=== PATIENT | male | born 1940 | race Caucasian/White ===

== ENCOUNTER 2016-10-18 16:48 | Inpatient (IN) | payer MEDICARE, BC ==
[~2016-10-18 16:48] MED LIST: AMIODARONE 450 MG in DEXTROSE 5% IN WATER 250 ML IV SCH
[2016-10-18] MEDS ORDERED: PROCAINAMIDE 100 MG/ML 10 ML VIAL IV STA (17:01)
[2016-10-18] MEDS ORDERED: AMIODARONE 450 MG in DEXTROSE 5% IN WATER 250 ML IV ONE ×2 (17:01)
[2016-10-18] MEDS: DEXTROSE 5% IN WATER 100 ML with AMIODARONE 150 MG IV ONE ×2 (17:04→17:11)
[2016-10-18] MEDS ORDERED: LORazepam 2 MG/ML SYRINGE IV STA (17:09)
[2016-10-18] MEDS ORDERED: MORPHINE SULFATE 4 MG/ML SYRINGE IVP STA (17:09)
[2016-10-18] MEDS ORDERED: HEPARIN SODIUM,PORCINE 5,000 UNIT/ML 1 ML VIAL IV PRN (17:19)
[2016-10-18] MEDS ORDERED: MORPHINE SULFATE 4 MG/ML SYRINGE IV PRN (17:19)
[2016-10-18] MEDS ORDERED: ASPIRIN 81 MG PO STA (17:19)
[2016-10-18] MEDS ORDERED: HEPARIN SODIUM,PORCINE 5,000 UNIT/ML 1 ML VIAL IV ONE (17:19)
[2016-10-18] MEDS ORDERED: SODIUM CHLORIDE 0.9% 1,000 ML IV STA (17:19)
--- NOTE | 2016-10-18 17:21 | ED ---
General Adult HPI - General Chief complaint: Chest Pain Stated complaint: Chest Pain Time Seen by Provider: 10/18/16 16:50 Source: patient, RN notes reviewed, old records reviewed Mode of arrival: wheelchair Limitations: no limitations - History of Present Illness Initial comments: This is a 76-year-old male the ER for evaluation of chest pain. Patient coming intervention with anterior chest pain lightheadedness dizziness feels the passed out weakness. Strong history of heart disease, NC with stent. Patient' s chest pain started one half hour prior to arrival, patient comes in the ER under his own power. Mild shortness of breath, he did have diaphoresis. No modifying factors for symptoms, symptoms are consistent and worsening - Related Data Home Medications Medication Instructions Recorded Confirmed Furosemide [Lasix] 20 mg PO DAILY 10/18/16 10/18/16 Gabapentin [Neurontin] 300 mg PO TID PRN 10/18/16 10/18/16 Latanoprost [Xalatan 0.005%] 1 drop BOTH EYES HS 10/18/16 10/18/16 Lisinopril [Zestril] 20 mg PO BID 10/18/16 10/18/16 Naproxen [Naprosyn] 375 mg PO BID 10/18/16 10/18/16 Pilocarpine 1% Ophth Soln [Isopto 1 drops RIGHT EYE BID 10/18/16 10/18/16 Carpine 1%] metFORMIN HCL ER [Glucophage Xr] 500 mg PO DAILY 10/18/16 10/18/16 Previous Rx's Medication Instructions Recorded Aspirin EC [Ecotrin Low Dose] 81 mg PO DAILY #100 tablet. 06/24/14 Carvedilol [Coreg] 6.25 mg PO BID #60 tab 06/24/14 Simvastatin [Zocor] 40 mg PO HS tab 06/24/14 Allergies Allergy/AdvReac Type Severity Reaction Status Date / Time atorvastatin calcium AdvReac Unknown Verified 10/18/16 16:54 [From Lipitor] hydrocodone bitartrate AdvReac Unknown Verified 10/18/16 16:54 [From Vicodin] Review of Systems ROS Statement: Those systems with pertinent positive or pertinent negative responses have been documented in the HPI. ROS Other: All systems not noted in ROS Statement are negative. Past Medical History Past Medical History: Coronary Artery Disease (CAD), Diabetes Mellitus, Hyperlipidemia, Hypertension, Myocardial Infarction (NC), Osteoarthritis (OA) Additional Past Medical History / Comment(s): Pt states my "RCA 99% is blocked and my LCA 17% blocked since 1980,a nd been that way ever since", headaches Last Myocardial Infarction Date:: 1980 History of Any Multi-Drug Resistant Organisms: None Reported Past Surgical History: Back Surgery, Hernia Repair Past Anesthesia/Blood Transfusion Reactions: No Reported Reaction Past Psychological History: No Psychological Hx Reported Smoking Status: Former smoker Past Alcohol Use History: None Reported Past Drug Use History: None Reported - Past Family History Father Family Medical History: Unable to Obtain General Exam Limitations: no limitations General appearance: alert, anxious, in distress Head exam: Present: atraumatic, normocephalic, normal inspection Eye exam: Present: normal appearance, PERRL, EOMI. Absent: scleral icterus, conjunctival injection, periorbital swelling ENT exam: Present: normal exam, mucous membranes moist Neck exam: Present: normal inspection. Absent: tenderness, meningismus, lymphadenopathy Respiratory exam: Present: normal lung sounds bilaterally. Absent: respiratory distress, wheezes, rales, rhonchi, stridor Cardiovascular Exam: Present: tachycardia, irregular rhythm, normal heart sounds. Absent: systolic murmur, diastolic murmur, rubs, gallop, clicks GI/Abdominal exam: Present: soft, normal bowel sounds. Absent: distended, tenderness, guarding, rebound, rigid Extremities exam: Present: normal inspection, full ROM, normal capillary refill. Absent: tenderness, pedal edema, joint swelling, calf tenderness Back exam: Present: normal inspection Neurological exam: Present: alert, oriented X3, CN II-XII intact Psychiatric exam: Present: normal affect, normal mood Skin exam: Present: warm, dry, intact, normal color. Absent: rash Course Vital Signs 10/18/16 10/18/16 10/18/16 16:52 16:58 17:03 Temperature 96.7 F L Pulse Rate 208 H 206 H 203 H Pulse Rate [ Mail List Librarian ] Respiratory 26 H 22 24 Rate Blood Pressure 101/69 166/88 165/65 Blood Pressure [Left Arm] O2 Sat by Pulse 97 99 98 Oximetry 10/18/16 10/18/16 10/18/16 17:12 17:16 17:18 Temperature Pulse Rate 190 H Pulse Rate [ 64 64 Mail List Librarian ] Respiratory 24 24 Rate Blood Pressure 86/54 Blood Pressure 126/60 118/69 [Left Arm] O2 Sat by Pulse 100 97 99 Oximetry 10/18/16 10/18/16 10/18/16 17:22 17:28 17:31 Temperature Pulse Rate Pulse Rate [ 62 71 68 Mail List Librarian ] Respiratory 22 22 22 Rate Blood Pressure Blood Pressure 114/65 114/62 111/62 [Left Arm] O2 Sat by Pulse 98 98 98 Oximetry 10/18/16 17:37 Temperature 96.8 F L Pulse Rate 65 Pulse Rate [ Mail List Librarian ] Respiratory 22 Rate Blood Pressure 113/66 Blood Pressure [Left Arm] O2 Sat by Pulse 98 Oximetry - Reevaluation(s) Reevaluation #1: 10/18/16 17:56 Patient is and ventricular tachycardia with a regular rhythm monomorphic, patient cardioverted at 100 J, cardioverted to normal sinus rhythm, EKG positive ST elevated NC, stimulator paged, cardiology evaluating patient returned to our operating room for PCI Medical Decision Making - Medical Decision Making Filiform LVEF for presenting with chest pain and V. tach or arrhythmia, patient was cardioverted from V. tach with positive ST elevated NC, patient admitted to collaborative physician for intervention - Lab Data Result diagrams: 10/18/16 17:22 10/18/16 17:22 - Radiology Data Radiology results: report reviewed (Chest x-ray is negative for acute disease), image reviewed Critical Care Time Critical Care Time: Yes Total Critical Care Time: 31 Disposition Clinical Impression: Chest pain, ST elevation myocardial infarction (STEMI), Ventricular tachycardia Disposition: ADMITTED IP TO THIS HOSP Condition: Critical
[2016-10-18] MEDS ORDERED: HEPARIN SODIUM,PORCINE/D5W PMX 25,000 UNIT in DEXTROSE/WATER 1 500ML.BAG IV SCH (17:30)
[2016-10-18 17:31] LABS: Basophils % (A) 0 %; CH 32.2; CHCM 34.2; Eosinophils # (A) 0.1 k/uL (0-0.7); Eosinophils % (A) 2 %; HCT 43.4 % (39.0-53.0); HDW 2.98; HGB 14.3 gm/dL (13.0-17.5); Luc # (Auto) 0.03; Luc % (Auto) 1; Lymphocytes # (A) 0.9 k/uL (1.0-4.8); Lymphocytes % (A) 21 %; MCH 31.1 pg (25.0-35.0); MCHC 32.9 g/dL (31.0-37.0); MCV 94.7 fL (80.0-100.0); Mean Platelet Volume 8.1; Monocytes # (A) 0.1 k/uL (0-1.0); Monocytes % (A) 3 %; Neutrophils # (A) 3.1 k/uL (1.3-7.7); Neutrophils % (A) 73 %; RBC 4.59 m/uL (4.30-5.90); RDW 15.2 % (11.5-15.5); WBC 4.2 k/uL (3.8-10.6); WBC (Perox) 4.17
[2016-10-18 17:39] LABS: INR 1.1 (<1.2); Partial Thromboplastin Time 24.4 sec (22.0-30.0); Prothrombin Time 10.7 sec (9.0-12.0)
--- NOTE | 2016-10-18 17:46 | XR ---
EXAMINATION TYPE: XR chest 1V portable DATE OF EXAM: 10/18/2016 COMPARISON: 06/20/2014 HISTORY: Chest pain TECHNIQUE: Single frontal view of the chest is obtained. FINDINGS: There is coarsening of interstitial markings. There is no gross heart failure. There are c hest leads. There are no hilar masses. I see no definite pleural effusion. IMPRESSION: Coarse lung markings similar to last exam and probably due to some fibrosis and atelecta sis. No gross heart failure.
[2016-10-18 17:48] LABS: Calcium 8.9 mg/dL (8.4-10.2); Potassium 4.6 mmol/L (3.5-5.1); Total Bilirubin 0.7 mg/dL (0.2-1.3); Total Protein 6.7 g/dL (6.3-8.2)
[2016-10-18] MEDS ORDERED: LIDOCAINE 2% INJ 20 MG/ML (20 ML MDV) ONE (17:50)
[2016-10-18] MEDS ORDERED: SODIUM CHLORIDE 0.9% 1,000 ML IV ONE (18:00)
[2016-10-18] MEDS ORDERED: LIDOCAINE 2% INJ 20 MG/ML SQ ONE (18:00)
--- NOTE | 2016-10-18 18:02 | P.CRDCN ---
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 He claims the pain was 9 on a scale of 1- 10. He was found to be in ventricular tachycardia on arrival. Patient had a cardioversion with conversion to sinus rhythm. Initial EKG showed marked ST depression. Subsequent EKG showed mild elevation in aVR, but mostly some ST depression in anterolateral leads. It may be primary ventricular tachycardia associated with some ischemic changes. However new myocardial infarction cannot be completely excluded. Patient is advised to have a cardiac catheterization for definitive diagnosis and further intervention as needed. Patient has history of previous ischemic cardiomyopathy. Patient may need AICD implantation. The time of my examination patient is completely free of pain. Review of Systems Not obtained Past Medical History Past Medical History: Coronary Artery Disease (CAD), Diabetes Mellitus, Hyperlipidemia, Hypertension, Myocardial Infarction (LA), Osteoarthritis (OA) Additional Past Medical History / Comment(s): Pt states my "RCA 99% is blocked and my LCA 17% blocked since 1980,a nd been that way ever since", headaches Last Myocardial Infarction Date:: 1980 History of Any Multi-Drug Resistant Organisms: None Reported Past Surgical History: Back Surgery, Hernia Repair Past Anesthesia/Blood Transfusion Reactions: No Reported Reaction Past Psychological History: No Psychological Hx Reported Smoking Status: Former smoker Past Alcohol Use History: None Reported Past Drug Use History: None Reported - Past Family History Father Family Medical History: Unable to Obtain Medications and Allergies Home Medications Medication Instructions Recorded Confirmed Type Furosemide [Lasix] 20 mg PO DAILY 10/18/16 10/18/16 History Gabapentin [Neurontin] 300 mg PO TID PRN 10/18/16 10/18/16 History Latanoprost [Xalatan 0.005%] 1 drop BOTH EYES HS 10/18/16 10/18/16 History Lisinopril [Zestril] 20 mg PO BID 10/18/16 10/18/16 History Naproxen [Naprosyn] 375 mg PO BID 10/18/16 10/18/16 History Pilocarpine 1% Ophth Soln [Isopto 1 drops RIGHT EYE BID 10/18/16 10/18/16 History Carpine 1%] metFORMIN HCL ER [Glucophage Xr] 500 mg PO DAILY 10/18/16 10/18/16 History Allergies Allergy/AdvReac Type Severity Reaction Status Date / Time atorvastatin calcium AdvReac Unknown Verified 10/18/16 16:54 [From Lipitor] hydrocodone bitartrate AdvReac Unknown Verified 10/18/16 16:54 [From Vicodin] Physical Exam Vitals: Vital Signs Temp Pulse Pulse Resp BP BP Pulse Ox 10/18/16 17:37 96.8 F L 65 22 113/66 98 10/18/16 17:31 68 22 111/62 98 10/18/16 17:28 71 22 114/62 98 10/18/16 17:22 62 22 114/65 98 10/18/16 17:18 64 24 118/69 99 10/18/16 17:16 64 24 126/60 97 10/18/16 17:12 190 H 86/54 100 10/18/16 17:03 203 H 24 165/65 98 10/18/16 16:58 206 H 22 166/88 99 10/18/16 16:52 96.7 F L 208 H 26 H 101/69 97 Intake and Output 10/18/16 10/18/16 10/18/16 06:59 14:59 22:59 Other: Weight 108.862 kg Patient Weight 10/19/16 06:59 Weight 108.862 kg GENERAL EXAM: Patient is alert and oriented and doesn't appear to be in any acute distress HEENT: Normocephalic. Normal reaction of pupils, equal size, normal range of extraocular motion. No erythema or exudates in the throat. NECK: No masses, no nuchal rigidity. CHEST: No chest wall deformity. LUNGS: Equal air entry with no crackles or wheeze. HEART: S1 and S2 normal with no audible mumurs or gallops. Regular rhythm, femorals equal on both sides.. ABDOMEN: Soft. SKIN: No rashes CENTRAL NERVOUS SYSTEM: No focal deficits. EXTREMITIES: No cyanosis, clubbing or edema. Results 10/18/16 17:22 10/18/16 17:22 Cardiac Enzymes 10/18/16 Range/Units 17:22 AST 50 (17-59) U/L Coagulation 10/18/16 Range/Units 17:22 PT 10.7 (9.0-12.0) sec APTT 24.4 (22.0-30.0) sec CBC 10/18/16 Range/Units 17:22 WBC 4.2 (3.8-10.6) k/uL RBC 4.59 (4.30-5.90) m/uL Hgb 14.3 (13.0-17.5) gm/dL Hct 43.4 (39.0-53.0) % Plt Count 161 (150-450) k/uL Comprehensive Metabolic Panel 10/18/16 Range/Units 17:22 Sodium 142 (137-145) mmol/L Potassium 4.6 (3.5-5.1) mmol/L Chloride 110 H (98-107) mmol/L Carbon Dioxide 20 L (22-30) mmol/L BUN 28 H (9-20) mg/dL Creatinine 1.80 H (0.66-1.25) mg/dL Glucose 158 H (74-99) mg/dL Calcium 8.9 (8.4-10.2) mg/dL AST 50 (17-59) U/L ALT 52 (21-72) U/L Alkaline Phosphatase 93 (38-126) U/L Total Protein 6.7 (6.3-8.2) g/dL Albumin 3.6 (3.5-5.0) g/dL Current Medications Generic Name Dose Route Start Last Admin Trade Name Freq PRN Reason Stop Dose Admin Aspirin 325 mg 10/19/16 09:00 Aspirin PO DAILY [facility] Heparin Sodium (Porcine) 0 unit 10/18/16 17:19 Heparin IV Q6HR PRN Low PTT Protocol Amiodarone HCl 450 mg/ 259 mls @ 34.53 mls/hr 10/18/16 17:01 10/18/16 17:33 Dextrose/Water IV 10/19/16 00:31 1 mg/min .Q7H31M ONE 34.53 mls/hr Protocol Administration 1 MG/MIN Heparin Sodium/Dextrose 25,000 500 mls @ 20.03 mls/hr 10/18/16 17:30 unit/ IV Solution IV .Q24H ANGELIQUE Protocol 9.2 UNITS/KG/HR Sodium Chloride 1,000 mls @ 100 mls/hr 10/18/16 17:19 Saline 0.9% IV 08/12/17 03:18 .Q10H STA Morphine Sulfate 4 mg 10/18/16 17:19 Morphine Sulfate (Inj) IV Q5M PRN Chest Pain Nitroglycerin 0.4 mg 10/18/16 17:19 Nitrostat SUBLINGUAL Q5M PRN Chest Pain Intake and Output 10/18/16 10/18/16 10/18/16 06:59 14:59 22:59 Other: Weight 108.862 kg Patient Weight 10/19/16 06:59 Weight 108.862 kg 10/18/16 17:22 10/18/16 17:22 EKG Interpretations (text) Sinus rhythm with evidence of old inferior wall LA. Diffuse ST-T abnormalities. Initial EKG showed ventricular tachycardia Assessment and Plan (1) Old inferior wall myocardial infarction Status: Acute (2) Ventricular tachycardia Status: Acute (3) Acute coronary syndrome Status: Acute (4) Diabetes mellitus Status: Acute (5) Chronic renal failure Status: Acute Plan: We will proceed with cardiac catheterization, which is being performed by Dr. NANCY Zuñiga. Meanwhile we'll continue the amiodarone, beta blockers and antiplatelet agents along with heparin. Prognosis is guarded
[2016-10-18] MEDS ORDERED: IOHEXOL 350 MG/ML 125ML BOTTLE INJ ONE (18:17)
[2016-10-18 18:19] LABS: Creatine Kinase MB 7.2 ng/mL (0.0-2.4); Troponin I 0.14 ng/mL (0.000-0.034)
[2016-10-18] MEDS ORDERED: RX INFO: IV CONTRAST WAS GIVEN 1 EACH MISC MISCELLANE PRN (18:22)
[2016-10-18 18:45] LABS: Magnesium 2.2 mg/dL (1.6-2.3)
[2016-10-18] MEDS: SODIUM CHLORIDE 0.9% 1,000 ML IV SCH (22:00)
[2016-10-19 00:23] LABS: Troponin I 24.9 ng/mL (0.000-0.034)
[2016-10-19] MEDS: LISINOPRIL 5 MG TAB PO SCH ×3 (00:35→21:28)
[2016-10-19] MEDS: MAGNESIUM SULFATE-D5W PMX 1 GM in DEXTROSE/WATER 1 100ML.BAG IVPB SCH ×2 (01:25→02:49)
[2016-10-19] MEDS: AMIODARONE 450 MG in DEXTROSE 5% IN WATER 250 ML IV SCH ×4 (01:58→21:23)
[2016-10-19 05:17] LABS: Basophils % (A) 1 %; CH 31.9; CHCM 33.4; Eosinophils # (A) 0.2 k/uL (0-0.7); Eosinophils % (A) 3 %; HCT 40.9 % (39.0-53.0); HDW 2.96; HGB 13.1 gm/dL (13.0-17.5); Luc # (Auto) 0.13; Luc % (Auto) 2; Lymphocytes # (A) 1.1 k/uL (1.0-4.8); Lymphocytes % (A) 17 %; MCH 30.8 pg (25.0-35.0); MCHC 32.1 g/dL (31.0-37.0); Mean Platelet Volume 8.7; Monocytes # (A) 0.4 k/uL (0-1.0); Monocytes % (A) 7 %; Neutrophils # (A) 4.5 k/uL (1.3-7.7); Neutrophils % (A) 71 %; RBC 4.26 m/uL (4.30-5.90); RDW 15.4 % (11.5-15.5); WBC 6.3 k/uL (3.8-10.6)
[2016-10-19 05:34] LABS: Calcium 8.5 mg/dL (8.4-10.2); Potassium 3.9 mmol/L (3.5-5.1)
[2016-10-19 05:52] LABS: Troponin I 26.9 ng/mL (0.000-0.034)
[2016-10-19] MEDS ORDERED: Potassium Replacement Protocol 1 EACH MISC MISCELLANE PRN (06:47)
[2016-10-19] MEDS: CARVEDILOL 6.25 MG TAB PO SCH ×2 (08:14→18:17)
[2016-10-19] MEDS: POTASSIUM CHLORIDE 10 MEQ, LIDOCAINE 2% INJ 10 MG in SODIUM CHLORIDE 0.9% 100 ML IV SCH ×2 (08:14→12:43)
[2016-10-19] MEDS: ASPIRIN 325 MG TAB PO SCH (08:14)
[2016-10-19 08:20] LABS: Glucose,Whole Blood 121 mg/dL (75-99)
[2016-10-19] MEDS ORDERED: ATORVASTATIN 40 MG TAB PO SCH (09:00)
[2016-10-19] MEDS: GABAPENTIN 300 MG CAP PO PRN ×2 (11:31→18:50)
[2016-10-19] MEDS: PILOCARPINE 1% OPHTH DROPS 15 ML BTL RIGHT EYE SCH ×2 (11:31→21:29)
[2016-10-19 12:42] LABS: Glucose,Whole Blood 131 mg/dL (75-99)
[2016-10-19] MEDS: INSULIN LISPRO (humaLOG) 300 UNIT/3 ML VIAL SQ SCH ×3 (12:44→21:28)
[2016-10-19 13:34] LABS: Hemoglobin A1C 6.1 % (4.2-6.1)
--- NOTE | 2016-10-19 16:54 | HP ---
DATE OF ADMISSION: 10/18/2016 CHIEF COMPLAINT: Chest pain. HISTORY OF PRESENT ILLNESS: This is a 76-year-old gentleman who presents to the emergency room from home. The patient was out doing some garage sales, etc. The patient looked up, felt dizzy then he felt extremely dizzy, diaphoretic, passed out briefly. The patient's said she took him home, it was pouring rain. The patient was looking up to see how the weather was going to be. As he got him he took some medication and went to sleep, however, the patient's noticed that he kept on complaining of chest pain. In view of that she brought him to the emergency room. The patient seen in the ER, noted to be in sustained ventricular tachycardia, rate of about 200. He was cardioverted. The patient subsequently showed EKG changes of ischemia. In view of this the patient was taken into the cardiac laboratory administrative director. The cardiac cath done revealed totally occluded RCA which is previous finding. He was noted to have some mild to moderate other plaques and did not have any acute occlusion. The patient has had a previous RCA occlusion with mildly hypokinetic segment there. It is felt that this segment was the source of origin of ventricular tachycardia and I suspect that the patient's rapid heart rate with mild hypertension was the cause of the chest discomfort and ischemic changes on EKG. The patient otherwise feels better since the cardioversion. Denies any chest pain or shortness of breath. PAST MEDICAL HISTORY: Significant for hypertension, coronary artery disease with previous RCA disease as noted. History of COPD, carcinoma of the prostate , diabetes mellitus, chronic kidney disease stage 3 and chronic neck and shoulder pain. The patient's surgical history is significant for lumbar surgery twice, TURP and bilateral inguinal herniorrhaphy. FAMILY MEDICAL HISTORY: Father , unknown cause. Mother of unknown cause. The patient had a stepbrother and stepsister unknown to him. The patient has had two daughters, 52 and 49 and a son 46, all in adequate health. SOCIAL HISTORY: Patient , lives with spouse. Is fairly active. CONSUMPTION HISTORY: Ex-smoker two packs per day for 20 years. Alcohol none. REVIEW OF SYSTEMS: NEURO: Denies any headaches. Present symptoms of dizziness. No double vision , blurred vision. No symptoms of seizure. Did have brief syncope. PSYCH: Some apprehension. CARDIAC: Chest pain resolved. Palpitations resolved. RESPIRATORY: Mild chronic cough. Mild dyspnea on exertion. Stable. GI: No nausea, vomiting, abdominal pain or diarrhea. : No symptoms of dysuria or hematuria. Does have some frequency. EXTREMITIES: No pain, edema. MUSCULOSKELETAL: Chronic neck pain. CONSTITUTIONAL: No fever or chills. HEMATOLOGIC: No anemia or bleeding disorder. ENDOCRINE: History of diabetes mellitus. SKIN: No rashes. ENT: Decreased hearing, has adequate vision. PHYSICAL EXAMINATION: Pleasant 76-year-old gentleman, at present stabilized post cardioversion. VITAL SIGNS: As mentioned above, patient at the time of ER evaluation had temperature of 96.7, pulse 208, respirations 26, blood pressure 101/69. Pulse ox of 97%. Subsequently, patient's blood pressure went up to 166/88 and then dropped down to 86/54. Post cardioversion pulse rate 64 and blood pressure 118/ 69. Pulse ox 99% on 2 liters. HEENT: Normocephalic. Pupils are reactive. Oral cavity dry. NECK: No JVD. LUNGS: Clear to auscultation with mild generalized decreased airflow. CARDIAC: Distant heart sounds, S1/S2 with no gallops. Systolic murmur 2/6 left sternal border. ABDOMEN: Soft. Bowel sounds present. EXTREMITIES: Reveal no edema, good pulses both upper and lower extremities. NEUROLOGIC: Awake, alert, oriented. Well coordinated movements. LABORATORY ASSESSMENT: EKG which shows ventricular tachycardia. Chest x-ray revealed coarse lung markings suggestive of some fibrosis, atelectasis with no gross heart failure. BUN and creatinine are normal. CBC is normal. PT and PTT is normal. Electrolytes - sodium 142, potassium 4.6, chloride 110, CO2 content 20, BUN 28, creatinine 1.8. Glucose 158. CPK 93, troponin 0.140. ASSESSMENT: 1. Sustained ventricular tachycardia. 2. Known coronary artery disease. 3. NonST elevated myocardial infarction. 4. Chronic kidney disease stage 3. 5. Diabetes mellitus. 6. Obesity. 7. Chronic obstructive pulmonary disease. 8. History of carcinoma of the prostate. PLAN: Continue present medical regimen. Patient's condition discussed with the patient. The patient did undergo cardiac catheterization. I did get a call from Dr. Alison Zuñiga. The patient's findings are suggestive of no acute occlusion, suggest chronic coronary artery disease and sustained ventricular tachycardia. Plan at present is to continue the patient on medical therapy. After further evaluation, consider for possible EP studies or defibrillator placement. Patient's condition discussed with the and reassured. LIAMD
[2016-10-19 17:28] LABS: Glucose,Whole Blood 106 mg/dL (75-99)
--- NOTE | 2016-10-19 17:33 | ECHOF ---
Referral Reason:Isch CM with VT and NSTEMI MEASUREMENTS -------- HEIGHT: 157.5 cm WEIGHT: 108.9 kg BP: 161/78 RVIDd: 3.4 cm (< 3.3) IVSd: 1.1 cm (0.6 - 1.1) LVIDd: 5.8 cm (3.9 - 5.3) LVPWd: 1.6 cm (0.6 - 1.1) IVSs: 1.2 cm LVIDs: 4.9 cm LVPWs: 1.7 cm LA Diam: 4.1 cm (2.7 - 3.8) LAESV Index (A-L): 26.75 ml/m Ao Diam: 3.4 cm (2.0 - 3.7) AV Cusp: 1.5 cm (1.5 - 2.6) LA Diam: 4.4 cm (2.7 - 3.8) MV EXCURSION: 16.226 mm (> 18.000) MV EF SLOPE: 37 mm/s (70 - 150) EPSS: 1.3 cm MV E Dread: 0.80 m/s MV DecT: 203 ms MV A Dread: 0.76 m/s MV E/A Ratio: 1.06 RAP: 5.00 mmHg RVSP: 15.73 mmHg FINDINGS -------- Undetermined rhythm. This was a technically adequate study. Left ventricular wall thickness is normal. Overall left ventricular systolic function is severely impaired with, an EF between 20 - 25 %. The right ventricle is normal in size. The left atrium is mildly dilated. The right atrial size is normal. The aortic valve is trileaflet, and appears structurally normal. No aortic stenosis or regurgitation. Mild mitral regurgitation is present. Mild tricuspid regurgitation present. There is no evidence of pulmonary hypertension. The right ventricular systolic pressure, as measured by Doppler, is 15.73mmHg. There is no pulmonic regurgitation present. The aortic root size is normal. There is no pericardial effusion. CONCLUSIONS -------- 1. Left ventricular wall thickness is normal. 2. There is no pericardial effusion. 3. Overall left ventricular systolic function is severely impaired with, an EF between 20 - 25 %. 4. The left atrium is mildly dilated. 5. Mild mitral regurgitation is present. 6. Mild tricuspid regurgitation present. 7. There is no evidence of pulmonary hypertension. 8. The right ventricular systolic pressure, as measured by Doppler, is 15.73mmHg. 9. There is no pulmonic regurgitation present. 10. The aortic root size is normal. SNACK STEWARD: Stella Parish RDCS
[2016-10-19] MEDS: HEPARIN SODIUM,PORCINE 5,000 UNIT/ML 1 ML VIAL SQ SCH (18:17)
[2016-10-19] MEDS: SODIUM CHLORIDE 0.9% 1,000 ML IV SCH (19:04)
--- NOTE | 2016-10-19 20:13 | CC ---
DATE OF SERVICE: 10/18/2016 PROCEDURE: Left heart catheterization, coronary angiography. PERFORMED BY: Dr. Alison Zuñiga. CLINICAL INFORMATION: Mr. Ben Vega is a 76 year old gentleman with a known diagnosis of ischemic cardiomyopathy with an ejection fraction of 40%, known RCA occlusion with noncritical left system disease based on cardiac catheterization from 1988. I follow him in the office on a regular basis. He presented to the hospital with chest pain, was found to be sustained ventricular tachycardia. He received Amiodarone without improvement and then had a 100 joules shock with which he converted to sinus rhythm and his chest pain then got better. He had ST segment depression more than ST segment elevation suggestive of some global ischemia after the shock and then brought to the cardiac catheterization lab. He was seen and evaluated by Dr. Chavez and myself. He was advised coronary angiography. PROCEDURE NOTE: Under local anesthesia and strict aseptic precautions, a 6 Luxembourgish introducer was placed in the right femoral artery. Using standard Connor catheters I performed coronary angiography. Using the same right Judkinss catheter, I checked LV pressures but did not perform LV gram. The patient has Type 2 diabetes and mild chronic CKD. The sheath was then sutured and the patient was sent to the ICU with the intent that the sheath will be pulled in the next half hour to 45 minutes. CARDIAC CATHETERIZATION FINDINGS: The left ventricle end diastolic pressure was 23 mmHg and there was no gradient across the aortic valve. CORONARY ANGIOGRAPHY FINDINGS: Right coronary artery: This vessel is totally occluded and seen as a stump without any antegrade flow. Left main coronary artery: This is a short, patent, vessel has some diffuse disease but no more than 20% stenosis and bifurcates into LAD and circumflex. The left main itself does not have any significant lesion. Left anterior descending coronary artery: This vessel has diffuse disease in the mid. In the mid portion, there is about 50% narrowing and it gives off two diagonal branches, one of which is diffusely diseased. There is a good sized septal branch and then the caliber of the LAD improves. It runs all the way to the apex supplying a sizable amount of myocardium. The first diagonal branch has diffuse. The second diagonal branch has minor irregularities. Mid LAD has 50% lesion and septal branch is free of significant disease. Left posterior circumflex coronary artery: Technically a non-dominant vessel that gives off a large obtuse marginal that runs distally. It has minor diffuse irregularities. No significant disease. Mid circumflex as a 40% lesion and then it gives off a groove branch that also has diffuse non-critical disease. Circumflex therefore, has about a 40% mid lesion, diffuse irregularities but no critical lesion is noted. COLLATERAL CIRCULATION: There is a rich network of collaterals coming from the left system opacifying the distal branches of the RCA. Collaterals come from both the LAD and the circumflex. LEFT VENTRICULOGRAM: This was not performed. 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 He has elevated filling pressures, moderate non-critical disease in the left system. Rich collaterals are being provided from the left system to the RCA. This is the distal opacification of the branches. RECOMMENDATIONS: I am recommending aggressive medical therapy and ICD. The patient will be on intravenous amiodarone for the next 24 hours. Magnesium level will be checked. He will also be on IV heparin for 24 hours. Echocardiogram will be performed tomorrow. The patient will probably require an ICD. The findings were discussed with the patient and her family and also with Dr. Masoud Omalley. The patient received moderate conscious sedation for a total duration of 30 minutes. His oxygenation was watched closely. ELSIE
--- NOTE | 2016-10-19 20:15 | P.PN ---
Subjective This is a 76-year-old gentleman with history of ischemic heart disease presented to the hospital with chest pain and was found to be in ventricular tachycardia on arrival. Patient had a cardioversion with conversion to sinus rhythm. Initial EKG showed marked ST depression. Subsequent EKG showed mild elevation in aVR, but mostly some ST depression in anterolateral leads. Patient is advised to have a cardiac catheterization. It showed mild to moderate CAD. He has primary VT. He is going to have an ICD. Objective - Vital Signs Vital signs: Vital Signs Temp 98.6 F 10/19/16 16:00 Pulse 65 10/19/16 19:24 Resp 16 10/19/16 19:24 BP 137/64 10/19/16 19:24 Pulse Ox 96 10/19/16 19:24 Intake & Output 10/19/16 10/19/16 10/20/16 06:59 18:59 06:59 Intake Total 1169.3 1712.366 Output Total 760 1675 Balance 409.3 37.366 Weight 112.7 kg Intake: IV 1169.3 931.3 0.9 Normal Saline 33 3 Pressure Bag Amiodarone 450 mg In 366.3 33.3 Dextrose 5% in Water 250 ml @ 1 MG/MIN 34.53 mls/ hr IV .Q7H31M ANG[facility] Rx#: [id number] Heparin Sodium,Porcine/ 220 20 D5w Pmx 25,000 unit In Dextrose/Water 1 500ml. bag @ 9.2 UNITS/KG/HR 20. 03 mls/hr IV .Q24H ANG[facility]QUE Rx #:[id number] Sodium Chloride 0.9% 1, 550 875 000 ml @ 75 mls/hr IV . [id number] ANG[facility]QUE Rx#:[id number] Intake, IV Titration 191.066 Amount Amiodarone 450 mg In 191.066 Dextrose 5% in Water 250 ml @ 1 MG/MIN 34.53 mls/ hr IV .Q7H31M ANGELIQUE Rx#: [id number] Oral 590 Output: Urine 760 1675 Other: Voiding Method Urinal Urinal # Bowel Movements 0 0 ABP, PAP, CO, CI - Last Documented Arterial Blood Pressure 140/67 - Constitutional General appearance: Present: no acute distress - Respiratory Respiratory: bilateral: CTA - Cardiovascular Rhythm: regular Heart sounds: normal: S1, S2 - Labs CBC & Chem 7: 10/19/16 04:48 10/19/16 04:48 Labs: Abnormal Lab Results - Last 24 Hours (Table) 10/18/16 10/18/16 10/19/16 Range/Units 23:31 23:31 04:48 RBC (4.30-5.90) m/uL Plt Count (150-450) k/uL APTT 38.8 H (22.0-30.0) sec Chloride (98-107) mmol/L BUN (9-20) mg/dL Creatinine (0.66-1.25) mg/dL Glucose (74-99) mg/dL POC Glucose (mg/dL) (75-99) mg/dL Magnesium (1.6-2.3) mg/dL Total Creatine Kinase 633 H 643 H (55-170) U/L CK-MB (CK-2) 149.0 H* 168.0 H* (0.0-2.4) ng/mL Troponin I 24.900 H* 26.900 H* (0.000-0.034) ng/mL Triglycerides (<150) mg/dL HDL Cholesterol (40-60) mg/dL 10/19/16 10/19/16 10/19/16 Range/Units 04:48 04:48 04:48 RBC 4.26 L (4.30-5.90) m/uL Plt Count 132 L (150-450) k/uL APTT 40.1 H (22.0-30.0) sec Chloride 108 H (98-107) mmol/L BUN 23 H (9-20) mg/dL Creatinine 1.66 H (0.66-1.25) mg/dL Glucose 133 H (74-99) mg/dL POC Glucose (mg/dL) (75-99) mg/dL Magnesium (1.6-2.3) mg/dL Total Creatine Kinase (55-170) U/L CK-MB (CK-2) (0.0-2.4) ng/mL Troponin I (0.000-0.034) ng/mL Triglycerides 176 H (<150) mg/dL HDL Cholesterol 27 L (40-60) mg/dL 10/19/16 10/19/16 10/19/16 Range/Units 04:48 08:18 12:41 RBC (4.30-5.90) m/uL Plt Count (150-450) k/uL APTT (22.0-30.0) sec Chloride (98-107) mmol/L BUN (9-20) mg/dL Creatinine (0.66-1.25) mg/dL Glucose (74-99) mg/dL POC Glucose (mg/dL) 121 H 131 H (75-99) mg/dL Magnesium 2.6 H (1.6-2.3) mg/dL Total Creatine Kinase (55-170) U/L CK-MB (CK-2) (0.0-2.4) ng/mL Troponin I (0.000-0.034) ng/mL Triglycerides (<150) mg/dL HDL Cholesterol (40-60) mg/dL 10/19/16 Range/Units 17:27 RBC (4.30-5.90) m/uL Plt Count (150-450) k/uL APTT (22.0-30.0) sec Chloride (98-107) mmol/L BUN (9-20) mg/dL Creatinine (0.66-1.25) mg/dL Glucose (74-99) mg/dL POC Glucose (mg/dL) 106 H (75-99) mg/dL Magnesium (1.6-2.3) mg/dL Total Creatine Kinase (55-170) U/L CK-MB (CK-2) (0.0-2.4) ng/mL Troponin I (0.000-0.034) ng/mL Triglycerides (<150) mg/dL HDL Cholesterol (40-60) mg/dL Assessment and Plan Plan: This is a 76 year old male with primary VT. He is going to have ICD. Will continue the Amiodarone and Coreg.
[2016-10-19] MEDS ORDERED: DORZOLAMIDE-TIMOLOL 2-0.5% DROPS 10 ML BTL RIGHT EYE SCH (21:00)
[2016-10-19 21:15] LABS: Glucose,Whole Blood 107 mg/dL (75-99)
[2016-10-19] MEDS: AMIODARONE 200 MG TAB PO SCH (21:28)
[2016-10-19] MEDS: LATANOPROST 0.005% OPHTH DROPS 2.5 ML BTL BOTH EYES SCH (21:29)
[2016-10-19] MEDS: DORZOLAMIDE HCL 2% DROPS 10 ML BTL RIGHT EYE SCH (22:13)
[2016-10-20] MEDS: HEPARIN SODIUM,PORCINE 5,000 UNIT/ML 1 ML VIAL SQ SCH ×2 (01:23→09:03)
[2016-10-20] MEDS: GABAPENTIN 300 MG CAP PO PRN ×3 (01:58→20:44)
[2016-10-20 05:56] LABS: Glucose,Whole Blood 131 mg/dL (75-99)
[2016-10-20 06:10] LABS: Mean Platelet Volume 8.1
[2016-10-20] MEDS: INSULIN LISPRO (humaLOG) 300 UNIT/3 ML VIAL SQ SCH ×4 (06:23→22:33)
[2016-10-20] MEDS: CARVEDILOL 6.25 MG TAB PO SCH ×2 (06:29→17:25)
[2016-10-20] MEDS: PILOCARPINE 1% OPHTH DROPS 15 ML BTL RIGHT EYE SCH ×2 (09:04→20:44)
[2016-10-20] MEDS: LISINOPRIL 5 MG TAB PO SCH ×2 (09:04→20:44)
[2016-10-20] MEDS: ASPIRIN 325 MG TAB PO SCH (09:04)
[2016-10-20] MEDS: AMIODARONE 200 MG TAB PO SCH ×2 (09:04→20:43)
--- NOTE | 2016-10-20 09:30 | P.PN ---
Subjective Principal diagnosis: Sustained ventricular tachycardia/acute coronary event This is a pleasant 76-year-old gentleman who sees Dr. NANCY Zuñiga as an outpatient with a known history of CAD, diabetes, hypertension, dyslipidemia who presented to the hospital with weakness, sweating, and chest discomfort as well. In the emergency room the patient was found to be in sustained ventricular tachycardia and then converted to normal sinus mechanism. The EKG after conversion showed ST changes concerning for ischemia and in view of that the patient underwent an emergent heart catheterization which showed intermediate to severe CAD involving the left main and LAD. It was felt that his sustained ventricular tachycardia is likely primary. The echocardiogram showed severe cardiomyopathy with an ejection fraction around 25-30%. The cardiac enzymes were checked and came in to be severe and tabnormal hat is likely related to acute coronary event. The plan is to proceed with AICD tomorrow morning. Objective - Vital Signs Vital signs: Vital Signs Temp 97.4 F L 10/20/16 04:00 Pulse 72 10/20/16 04:00 Resp 16 10/20/16 04:00 BP 163/80 10/20/16 04:00 Pulse Ox 97 10/20/16 04:00 Intake & Output 10/19/16 10/20/16 10/20/16 18:59 06:59 18:59 Intake Total 1712.366 360 Output Total 1675 300 Balance 37.366 -300 360 Weight 107.3 kg Intake: IV 931.3 0.9 Normal Saline 3 Pressure Bag Amiodarone 450 mg In 33.3 Dextrose 5% in Water 250 ml @ 1 MG/MIN 34.53 mls/ hr IV .Q7H31M [facility] Rx#: [id number] Heparin Sodium,Porcine/ 20 D5w Pmx 25,000 unit In Dextrose/Water 1 500ml. bag @ 9.2 UNITS/KG/HR 20. 03 mls/hr IV .Q24H [facility] Rx #:[id number] Sodium Chloride 0.9% 1, 875 000 ml @ 75 mls/hr IV . [id number] ANG[facility]QUE Rx#:[id number] Intake, IV Titration 191.066 Amount Amiodarone 450 mg In 191.066 Dextrose 5% in Water 250 ml @ 1 MG/MIN 34.53 mls/ hr IV .Q7H31M ANGELIQUE Rx#: [id number] Oral 590 360 Output: Urine 1675 300 Other: Voiding Method Urinal Urinal # Voids 1 # Bowel Movements 0 ABP, PAP, CO, CI - Last Documented Arterial Blood Pressure 140/67 - Constitutional General appearance: Present: no acute distress - Respiratory Respiratory: bilateral: CTA - Cardiovascular Rhythm: regular Heart sounds: normal: S1, S2 - Labs CBC & Chem 7: 10/20/16 05:44 10/19/16 04:48 Labs: Abnormal Lab Results - Last 24 Hours (Table) 10/19/16 10/19/16 10/19/16 Range/Units 12:41 17:27 21:13 Plt Count (150-450) k/uL POC Glucose (mg/dL) 131 H 106 H 107 H (75-99) mg/dL 10/20/16 10/20/16 Range/Units 05:44 05:55 Plt Count 144 L (150-450) k/uL POC Glucose (mg/dL) 131 H (75-99) mg/dL Assessment and Plan Plan: I am going to continue the current medical treatment which include beta mandie , statin, and amiodarone. In view of the severe lead abnormal cardiac enzymes I am going to restart the patient back on heparin IV for additional 24 hours. And in view of the severe cardiomyopathy by echocardiogram I will start the patient on Aldactone at 25 mg by mouth daily. The patient is going to have an AICD tomorrow morning.
[2016-10-20] MEDS ORDERED: HEPARIN SODIUM,PORCINE 5,000 UNIT/ML 1 ML VIAL IV PRN (09:40)
[2016-10-20] MEDS: DORZOLAMIDE HCL 2% DROPS 10 ML BTL RIGHT EYE SCH ×2 (11:25→20:43)
[2016-10-20] MEDS: HEPARIN SODIUM,PORCINE/D5W PMX 25,000 UNIT in DEXTROSE/WATER 1 500ML.BAG IV SCH (11:38)
[2016-10-20 11:57] LABS: Glucose,Whole Blood 97 mg/dL (75-99)
--- NOTE | 2016-10-20 13:59 | P.PN ---
Subjective Principal diagnosis: Sustained ventricular tachycardia History present illness: This 76-year-old gentleman was admitted to the hospital after sudden episode of dizziness, and they're very brief transient syncopal episode. He also had some associated chest discomfort. Previous history of coronary artery disease. Due to above symptoms patient presents to the emergency room and is noted to be in sustained ventricular tachycardia with a systolic blood pressure subsequently down to 84. His blood pressure was normal at the time of presentation. Patient was cardioverted. EKG subsequently did show some ST elevations. Patient's taken into the cardiac geotechnical laboratory technician where he was noted to have a totally occluded right coronary artery which is chronic. Is noted to have some mild to moderate disease in the other arteries. The power tong operator did not feel that the patient had an acute VA. He is planned for an AICD. His echocardiogram has shown decline in his left ventricle infarction to 25%. He is to be 40%. The patient today feels well with no symptoms. Dr. Larios the power tong operator today saw the films and feels that he may have a significant occlusion in his LAD and will need further evaluation. We will await their decision. Patient however is comfortable today. REVIEW OF SYSTEMS: Neuro: History of chronic headaches, denies dizziness Psych: Denies anxiety depression feels oriented. Cardiac: Denies chest pain and angina palpitations. Respiratory: Denies shortness of breath cough. GI: Denies nausea vomiting or abdominal pain. No diarrhea or constipation, no bowel movement yet. : Denies dysuria hematuria. Extremities: Denies pain. No edema. Skin: Intact. Constitutional: No fever, chills. Objective - Vital Signs Vital signs: Vital Signs Temp 97.5 F L 10/20/16 08:00 Pulse 60 10/20/16 08:00 Resp 16 10/20/16 12:00 BP 139/67 10/20/16 08:00 Pulse Ox 98 10/20/16 08:00 Intake & Output 10/19/16 10/20/16 10/20/16 18:59 06:59 18:59 Intake Total 1712.366 600 Output Total 1675 300 Balance 37.366 -300 600 Weight 107.3 kg Intake: IV 931.3 0.9 Normal Saline 3 Pressure Bag Amiodarone 450 mg In 33.3 Dextrose 5% in Water 250 ml @ 1 MG/MIN 34.53 mls/ hr IV .Q7H31M [facility] Rx#: [id number] Heparin Sodium,Porcine/ 20 D5w Pmx 25,000 unit In Dextrose/Water 1 500ml. bag @ 9.2 UNITS/KG/HR 20. 03 mls/hr IV .Q24H [facility] Rx #:[id number] Sodium Chloride 0.9% 1, 875 000 ml @ 75 mls/hr IV . [id number] [facility]QUE Rx#:[id number] Intake, IV Titration 191.066 Amount Amiodarone 450 mg In 191.066 Dextrose 5% in Water 250 ml @ 1 MG/MIN 34.53 mls/ hr IV .Q7H31M ANGELIQUE Rx#: [id number] Oral 590 600 Output: Urine 1675 300 Other: Voiding Method Urinal Urinal # Voids 1 # Bowel Movements 0 ABP, PAP, CO, CI - Last Documented Arterial Blood Pressure 140/67 PHYSICAL EXAMINATION: Cooperative, at present in no acute distress. HEENT: Neck decreased range of motion difficult to assess for JVD Chest: Clear to auscultation percussion. Cardiac: Normal S1-S2 no gallops systolic murmur left sternal border. Abdomen: Soft bowel sounds present. Extremities: No edema no tenderness Neurologically: Awake, alert, oriented with well-coordinated movements. - Labs CBC & Chem 7: 10/20/16 05:44 10/19/16 04:48 Labs: Abnormal Lab Results - Last 24 Hours (Table) 10/19/16 10/19/16 10/20/16 Range/Units 17:27 21:13 05:44 Plt Count 144 L (150-450) k/uL POC Glucose (mg/dL) 106 H 107 H (75-99) mg/dL 10/20/16 Range/Units 05:55 Plt Count (150-450) k/uL POC Glucose (mg/dL) 131 H (75-99) mg/dL Assessment and Plan Plan: ASSESSMENT: 1. Sustained ventricular tachycardia. 2. Syncope. 3. Oriented disease. 4. Chronic kidney disease stage III. 5. Diabetes mellitus with narcotic medication. 6. Obesity. 7. COPD. 8. Chronic neck pain. 9. Ischemic cardiomyopathy PLAN: Continue present medical regimen. Dr. Larios feels the patient should continue on heparin he feels patient had a microinfarction. He is considered review her case with Dr. NANCY Zuñiga and Dr. Chavez and make further decisions about re-cardiac catheterization and further evaluation of the LAD blockage .
[2016-10-20 16:54] LABS: Glucose,Whole Blood 110 mg/dL (75-99)
[2016-10-20] MEDS: LATANOPROST 0.005% OPHTH DROPS 2.5 ML BTL BOTH EYES SCH (20:44)
[2016-10-20 21:24] LABS: Glucose,Whole Blood 129 mg/dL (75-99)
[2016-10-20] MEDS: NITROGLYCERIN SL TABS 0.4 MG TAB SUBLINGUAL PRN ×2 (22:46→22:54)
[2016-10-21] MEDS: GABAPENTIN 300 MG CAP PO PRN ×2 (04:19→07:59)
[2016-10-21 06:04] LABS: Mean Platelet Volume 8.6
[2016-10-21 06:24] LABS: Glucose,Whole Blood 135 mg/dL (75-99)
[2016-10-21] MEDS: INSULIN LISPRO (humaLOG) 300 UNIT/3 ML VIAL SQ SCH ×4 (06:41→21:11)
[2016-10-21] MEDS: CARVEDILOL 6.25 MG TAB PO SCH ×2 (07:01→16:50)
[2016-10-21] MEDS ORDERED: NITROGLYCERIN SL TABS 0.4 MG TAB SUBLINGUAL PRN ×2 (07:58→11:52)
[2016-10-21] MEDS ORDERED: ALPRAZolam 0.5 MG TAB PO PRN (07:58)
[2016-10-21] MEDS ORDERED: SODIUM CHLORIDE 0.9% 1,000 ML in EMPTY BAG 1 BAG IV ONE (07:58)
[2016-10-21] MEDS ORDERED: ALPRAZolam 0.25 MG TAB PO PRN (07:58)
[2016-10-21] MEDS ORDERED: ASPIRIN 325 MG TAB PO STA (07:58)
[2016-10-21] MEDS ORDERED: ATORVASTATIN 80 MG TAB PO STA (07:58)
[2016-10-21] MEDS: LISINOPRIL 5 MG TAB PO SCH ×2 (07:59→20:30)
[2016-10-21] MEDS: ASPIRIN 325 MG TAB PO SCH (07:59)
[2016-10-21] MEDS: DORZOLAMIDE HCL 2% DROPS 10 ML BTL RIGHT EYE SCH ×2 (07:59→20:30)
[2016-10-21] MEDS: AMIODARONE 200 MG TAB PO SCH ×2 (07:59→20:31)
[2016-10-21] MEDS: SPIRONOLACTONE 25 MG TAB PO SCH (08:00)
[2016-10-21] MEDS: HEPARIN SODIUM,PORCINE/D5W PMX 25,000 UNIT in DEXTROSE/WATER 1 500ML.BAG IV SCH (08:00)
[2016-10-21] MEDS: PILOCARPINE 1% OPHTH DROPS 15 ML BTL RIGHT EYE SCH ×2 (08:00→20:31)
--- NOTE | 2016-10-21 08:05 | PN ---
CHIEF COMPLAINT: Re-evaluation HISTORY OF PRESENT ILLNESS: This gentleman was admitted to the hospital in sustained V. tach after deploying cardioversion. The patient subsequently underwent a cardiac catheterization, noted to have witnessed a complete occlusion of RCA which was not recent. The patient; however, did undergo cardiac catheterization that revealed no evidence of major blockage. The patient on admission had signs and symptoms suggestive of V. tach. The patient has had a previous myocardial infarction and probably has a significant scar. The patient is scheduled to undergo AICD placement. Discussed with the patient what an AICD is. REVIEW OF SYSTEMS: NEURO: Denies any headaches, dizziness. PSYCH: No anxiety. CARDIOVASCULAR: No chest pain, angina or palpitation. RESPIRATORY: No shortness of breath, cough, hemoptysis. GI: No nausea, vomiting, abdominal pain, diarrhea. : No symptoms of dysuria, hematuria. EXTREMITIES: Denies pain, edema. CONSTITUTIONAL: No fever or chills. PHYSICAL EXAMINATION: A pleasant gentleman in no distress. Vital signs reveal temperature 97.7, pulse 57, respirations 13, blood pressure 146/83, pulse ox 99% on 2 L. HEENT: Normocephalic. NECK: Good range of motion, no JVD appreciated. Chest is clear to auscultation with mild decreased and generalized air flow, especially in the bases. CARDIAC: Heart sound S1, S2 with no gallops, systolic murmur 2/6 left sternal border. ABDOMEN: Soft, bowel sounds are normal. EXTREMITIES: Reveal no edema. Neurologically awake, alert, oriented, well-coordinated movements. LABORATORY ASSESSMENT: Marked elevated troponins due to having a cardioversion and sustained ventricular tachycardia. Laboratory assessment otherwise revealed normal hemoglobin and white count, electrolytes reveal potassium 3.9. ASSESSMENT: 1. Sustained ventricular tachycardia with associated angina and syncope. 2. History of pacemaker. 3. Known coronary artery disease. PLAN: The patient is stable. Continue present medical regimen. Patient's condition discussed with the patient. Prognosis guarded. The patient is scheduled for an AICD. Patient educated AICD. MTDD
[2016-10-21 08:14] LABS: Calcium 9.1 mg/dL (8.4-10.2); Potassium 4.9 mmol/L (3.5-5.1)
[2016-10-21] MEDS: traMADol 50 MG TAB PO PRN ×2 (09:26→18:44)
[2016-10-21 10:08] LABS: Creatine Kinase MB 5.2 ng/mL (0.0-2.4); Troponin I 7.64 ng/mL (0.000-0.034)
[2016-10-21] MEDS ORDERED: LIDOCAINE 2% INJ 20 MG/ML (20 ML MDV) ONE (10:14)
[2016-10-21] MEDS ORDERED: MIDAZOLAM 2 MG/2 ML VIAL ONE (10:14)
[2016-10-21] MEDS ORDERED: diphenhydrAMINE 50 MG/ML 1 ML VIAL ONE (10:14)
[2016-10-21] MEDS ORDERED: diphenhydrAMINE 50 MG/ML 1 ML VIAL IVP ONE (10:22)
[2016-10-21] MEDS ORDERED: MIDAZOLAM 2 MG/2 ML VIAL IV ONE (10:22)
[2016-10-21] MEDS ORDERED: LIDOCAINE 2% INJ 20 MG/ML SQ ONE (10:25)
[2016-10-21] MEDS ORDERED: HEPARIN SODIUM 1,000 UN/ML (10ML VL) ONE (10:28)
[2016-10-21] MEDS ORDERED: IV FLUID CONTINUATION 1,000 ML IV ONE (10:34)
[2016-10-21] MEDS ORDERED: HEPARIN SODIUM 1,000 UN/ML (10ML VL) IV ONE (11:00)
[2016-10-21] MEDS: NITROGLYCERIN 1000MCG/10ML SYRINGE INTRACORON ONE ×3 (11:06→11:39)
[2016-10-21] MEDS ORDERED: ADENOSINE 90 MG in SODIUM CHLORIDE 0.9% 60 ML IVP ONE ×2 (11:11→11:18)
[2016-10-21] MEDS ORDERED: BIVALIRUDIN BOLUS 250 MG/50 ML IV ONE ×2 (11:18→11:19)
[2016-10-21] MEDS ORDERED: BIVALIRUDIN 250 MG in SODIUM CHLORIDE 0.9% 50 ML IV ONE (11:20)
[2016-10-21] MEDS ORDERED: HYDROmorphone 2 MG/ML 1 ML SYRINGE ONE (11:27)
[2016-10-21] MEDS: HYDROmorphone 2 MG/ML 1 ML SYRINGE IV ONE ×2 (11:31→11:42)
[2016-10-21] MEDS ORDERED: PRASUGREL 10 MG TAB ONE (11:47)
[2016-10-21] MEDS ORDERED: PRASUGREL 10 MG TAB PO ONE (11:51)
[2016-10-21] MEDS ORDERED: RX INFO: IV CONTRAST WAS GIVEN 1 EACH MISC MISCELLANE PRN (11:52)
[2016-10-21] MEDS ORDERED: ZOLPIDEM 5 MG TAB PO PRN (11:52)
[2016-10-21] MEDS ORDERED: IODIXANOL 320 MG/ML 100 ML INTRAARTER ONE (11:52)
[2016-10-21] MEDS ORDERED: ATROPINE SULFATE 0.1 MG/ML 10ML SYRINGE IV PRN (11:52)
[2016-10-21] MEDS ORDERED: MAG HYDROX/AL HYDROX/SIMETH 30 ML CUP PO PRN (11:52)
[2016-10-21 12:12] LABS: Glucose,Whole Blood 101 mg/dL (75-99)
--- NOTE | 2016-10-21 15:55 | XR ---
EXAMINATION TYPE: XR chest 1V portable DATE OF EXAM: 10/21/2016 COMPARISON: 10/18/2016 HISTORY: Increased shortness of breath TECHNIQUE: Single frontal view of the chest is obtained. FINDINGS: Cardiomegaly and mild pulmonary vascular congestion are seen in addition to low lung volum es and obscuration of the costophrenic angles. This is likely related to trace pleural effusions. The re is also engorgement of the superior vena cava. Visualized osseous structures appear intact. IMPRESSION: New trace pleural effusions and mild pulmonary vascular congestion with redemonstration of cardiomegaly. Findings likely represent underlying decompensated congestive heart failure.
[2016-10-21 16:43] LABS: Glucose,Whole Blood 121 mg/dL (75-99)
[2016-10-21] MEDS ORDERED: FUROSEMIDE 10 MG/ML 4 ML VIAL IV STA (16:44)
[2016-10-21] MEDS: SODIUM CHLORIDE 0.9% 1,000 ML IV SCH (16:50)
[2016-10-21] MEDS: SIMVASTATIN PO SCH ×2 (18:15→23:35)
[2016-10-21] MEDS: LATANOPROST 0.005% OPHTH DROPS 2.5 ML BTL BOTH EYES SCH (20:30)
[2016-10-21 20:57] LABS: Glucose,Whole Blood 140 mg/dL (75-99)
[2016-10-22] MEDS: traMADol 50 MG TAB PO PRN ×4 (00:48→20:26)
[2016-10-22] MEDS: GABAPENTIN 300 MG CAP PO PRN ×3 (04:25→20:27)
[2016-10-22] MEDS: SODIUM CHLORIDE 0.9% 1,000 ML IV SCH (04:35)
[2016-10-22 05:53] LABS: Glucose,Whole Blood 117 mg/dL (75-99)
[2016-10-22 06:15] LABS: Basophils % (A) 0 %; CH 32.2; CHCM 34.2; Eosinophils # (A) 0.1 k/uL (0-0.7); Eosinophils % (A) 1 %; HCT 42.1 % (39.0-53.0); HDW 2.91; HGB 13.7 gm/dL (13.0-17.5); Luc # (Auto) 0.15; Luc % (Auto) 2; Lymphocytes # (A) 0.7 k/uL (1.0-4.8); Lymphocytes % (A) 8 %; MCH 30.8 pg (25.0-35.0); MCHC 32.6 g/dL (31.0-37.0); MCV 94.5 fL (80.0-100.0); Mean Platelet Volume 8.2; Monocytes # (A) 0.6 k/uL (0-1.0); Monocytes % (A) 6 %; Neutrophils # (A) 7.8 k/uL (1.3-7.7); Neutrophils % (A) 83 %; RBC 4.45 m/uL (4.30-5.90); RDW 15.3 % (11.5-15.5); WBC 9.5 k/uL (3.8-10.6); WBC (Perox) 9.74
[2016-10-22] MEDS: INSULIN LISPRO (humaLOG) 300 UNIT/3 ML VIAL SQ SCH ×4 (06:21→21:28)
[2016-10-22] MEDS: PILOCARPINE 1% OPHTH DROPS 15 ML BTL RIGHT EYE SCH ×2 (06:25→20:27)
[2016-10-22] MEDS: CARVEDILOL 6.25 MG TAB PO SCH ×2 (06:25→16:24)
[2016-10-22] MEDS: DORZOLAMIDE HCL 2% DROPS 10 ML BTL RIGHT EYE SCH ×2 (06:26→20:29)
[2016-10-22 06:43] LABS: Calcium 9.3 mg/dL (8.4-10.2); Potassium 4.6 mmol/L (3.5-5.1)
[2016-10-22] MEDS: AMIODARONE 200 MG TAB PO SCH ×2 (07:31→20:26)
[2016-10-22] MEDS: LISINOPRIL 5 MG TAB PO SCH ×2 (07:32→20:26)
[2016-10-22] MEDS: CLOPIDOGREL 75 MG TAB PO SCH (07:32)
[2016-10-22] MEDS: SPIRONOLACTONE 25 MG TAB PO SCH (07:32)
[2016-10-22] MEDS: ASPIRIN 81 MG PO SCH (07:32)
[2016-10-22] MEDS: ATORVASTATIN 40 MG TAB PO SCH (07:32)
--- NOTE | 2016-10-22 09:30 | PTCA ---
DATE OF SERVICE: 10/21/2016 PROCEDURE: 1. Fractional flow reserve assessment of left main, circumflex and LAD. 2. PTCA and stenting of mid left anterior descending coronary artery with a drug eluding stent. Performed by Dr. Alison Zuñiga. CLINICAL INFORMATION: Mr. Ben Vega is a 76-year-old gentleman, a patient of Dr. Masoud Omalley, who was admitted to the hospital with a sustained ventricular tachycardia and syncope that occurred at home. After his arrival, cardiac cath was performed by me and I noted that he did not have any critical stenosis. He had a moderate mid LAD lesion, total occlusion of RCA which was known. He had an inferior wall scar and circumflex was free of significant disease and there was a questionable disease at the ostium of the left main. I felt that he did not have any critical lesion that required intervention. However, his troponin went up to 28 and he had another bout of angina and, therefore, I recommended repeat cardiac cath and fractional flow reserve assessment, especially of the mid LAD which had a lesion of about 50-60% based on my initial cardiac cath. Risks, benefits, options and rationale were explained to the patient and at length and I brought him for the procedure this morning. PROCEDURE NOTE: Under local anesthesia and strict aseptic precautions a 6 Macedonian introducer was placed in the left femoral artery. I tried different guide catheters and finally with a Voda 3.5 catheter I was able to get selective cannulation of the left main. I performed injections of the left main and it did not look like there was a significant ostial lesion. Using a [place] wire I performed fractional flow reserve assessment and the wire was kept in the circumflex and this helped me get a fractional flow reserve assessment of both the circumflex and left main. The FFR was 0.90. I then turned my attention to the LAD. Wire was kept in the distal aspect of the LAD and I performed a fractional flow reserve assessment with adenosine infusion as per protocol. The FFR was 0.80 which was borderline and given the clinical circumstances and the lesion, I felt I should perform intervention and I proceeded to perform this in the same setting. Patient received 5000 units of heparin intravenously and subsequently I gave him Angiomax bolus and infusion as per protocol. He also received 60 mg of Effient as per protocol. I performed predilatation of the mid LAD lesion with a 2.5 caliber 12 mm long NC Trek balloon at 12 atmospheres and I tried to advance the stent over the same wire but there was some difficulty with some bending of the wire at the proximal portion and, therefore, I advanced a BMW wire with a curve and took this existing [place] wire out. Over this BMW wire I advanced a 3-0 caliber 12 mm long Promus stent and this was deployed at 13 atmospheres. The patient did not have any significant chest pain but had precordial mild ST elevation. Excellent angiographic result was achieved. The diagonal branch that came off from the same location which had a subtotal diffuse lesion was subtotally occluded. However, the flow in the LAD was excellent. The patient was asymptomatic, hemodynamically stable. The sheath was then taken out and Angio- Seal device used to secure hemostasis and he was sent to the room in stable condition. Moderate conscious sedation was provided for a total duration of 1 hour 15 minutes. The patient tolerated the procedure without complication and the angiographic results were excellent. They were communicated to the patient's family and also with Dr. Cummins who will be performing an ICD in the next 48 hours. ELSIE
--- NOTE | 2016-10-22 09:44 | PN ---
CHIEF COMPLAINT: Reevaluation. HISTORY OF PRESENT ILLNESS: This is a 76-year-old gentleman who was admitted to the hospital with sustained ventricular tachycardia and subsequently suggestion of ST elevation myocardial infarction. The patient initially underwent a cardiac catheterization and was noted to have no evidence of any acute occlusion. The patient's troponin is being somewhat elevated. The patient did undergo a repeat catheterization today and underwent a PTCA of her left main artery. The patient is still recommended to undergo an AICD. His ejection fraction 25% approximately. The patient does have some dyspnea and orthopnea. His chest x-ray is unremarkable. REVIEW OF SYSTEM: NEURO: Denies any headaches, dizziness. PSYCH: Anxiety. CARDIAC: Did have some chest pain suggestive of angina last night. No palpitations. Some brief runs of ventricular tachycardia, 4 beats. RESPIRATORY: No shortness of breath, cough, hemoptysis. GI: No nausea, vomiting, abdominal pain, diarrhea. : No symptoms of dysuria, hematuria, urgency, frequency. EXTREMITIES: No pain. MUSCULOSKELETAL: Some chronic neck and back pain. SKIN: No rashes. PHYSICAL EXAMINATION: A pleasant gentleman at present in no distress. Vital signs reveal temperature 97.5, respiration 16, blood pressure 138/72, pulse ox 95% on room air. HEENT: Normocephalic. NECK: ( ) JVD. Chest is clear to auscultation with mildly decreased generalized air flow. CARDIAC: Distant heart sounds. S1, S2 with no gallops. Systolic murmur ( ) left sternal border. ABDOMEN: Soft. Bowel sounds present. Extremities reveal no edema. NEUROLOGICALLY: Awake, alert, oriented with well coordinated movements. LABORATORY ASSESSMENT: Electrolytes are normal. BUN 19, creatinine 1.44, improved. Glucose 116. ASSESSMENT: 1. Sustained ventricular tachycardia. 2. Dilated ischemic cardiomyopathy. 3. Coronary artery disease. 4. Status post PTCA and stent today. 5. Chronic kidney disease, stage III. 6. Diabetes mellitus. 7. History of carcinoma of the prostate. 8. Chronic cervical radiculopathy. PLAN: Continue present medical regimen. Patient's condition discussed with the patient and spouse and family. Prognosis remains guarded. Dr. Alison Zuñiga did discuss the case with me today after the PTCA. ( ) AICD probably on the . Patient's condition is discussed with the patient. Prognosis guarded. MTDD
[2016-10-22] MEDS: FUROSEMIDE 10 MG/ML 4 ML VIAL IV SCH (09:45)
--- NOTE | 2016-10-22 10:09 | P.PN ---
Subjective Principal diagnosis: Sustained ventricular tachycardia/acute coronary event This is a pleasant 76-year-old gentleman who sees Dr. NANCY Zuñiga as an outpatient with a known history of CAD, diabetes, hypertension, dyslipidemia who presented to the hospital with weakness, sweating, and chest discomfort as well. In the emergency room the patient was found to be in sustained ventricular tachycardia and then converted to normal sinus mechanism. The EKG after conversion showed ST changes concerning for ischemia and in view of that the patient underwent an emergent heart catheterization which showed intermediate to severe CAD involving the left main and LAD. The patient underwent yesterday and FFR of the LAD and that came in to be ischemic at 0.80. Subsequently he underwent successful stenting of the LAD with a good angiographic results. From the cardiac standpoint of view, the patient can be discharged home. He is going to be discharged on LifeVest and follow-up with Dr. NANCY Zuñiga. Objective - Vital Signs Vital signs: Vital Signs Temp 97.9 F 10/22/16 07:35 Pulse 55 L 10/22/16 07:35 Resp 20 10/22/16 07:35 BP 117/57 10/22/16 07:35 Pulse Ox 94 L 10/22/16 07:35 Intake & Output 10/21/16 10/22/16 10/22/16 18:59 06:59 18:59 Intake Total 500.3 540 Output Total 300 800 Balance 200.3 -260 Weight 103.6 kg Intake: IV 245 Intake, IV Titration 255.3 240 Amount Heparin Sodium,Porcine/ 255.3 D5w Pmx 25,000 unit In Dextrose/Water 1 500ml. bag @ 20 mls/hr IV .Q24H ANGEL[facility]QUE Rx#:[id number] Sodium Chloride 0.9% 1, 240 000 ml @ 75 mls/hr IV . [id number] ANGELIQUE Rx#:[id number] Oral 300 Output: Urine 300 800 Other: Voiding Method Urinal # Bowel Movements 0 ABP, PAP, CO, CI - Last Documented Arterial Blood Pressure 140/67 - Constitutional General appearance: Present: no acute distress - Respiratory Respiratory: bilateral: CTA - Cardiovascular Rhythm: regular Heart sounds: normal: S1, S2 - Labs CBC & Chem 7: 10/22/16 05:50 10/22/16 05:50 Labs: Abnormal Lab Results - Last 24 Hours (Table) 08/10/21/16 10/21/16 Range/Units 05:17 12:10 16:40 Neutrophils # (1.3-7.7) k/uL Lymphocytes # (1.0-4.8) k/uL BUN (9-20) mg/dL Creatinine (0.66-1.25) mg/dL Glucose (74-99) mg/dL POC Glucose (mg/dL) 101 H 121 H (75-99) mg/dL CK-MB (CK-2) 5.2 H* (0.0-2.4) ng/mL Troponin I 7.640 H* (0.000-0.034) ng/mL 10/21/16 10/22/16 10/22/16 Range/Units 20:55 05:50 05:50 Neutrophils # 7.8 H (1.3-7.7) k/uL Lymphocytes # 0.7 L (1.0-4.8) k/uL BUN 21 H (9-20) mg/dL Creatinine 1.50 H (0.66-1.25) mg/dL Glucose 114 H (74-99) mg/dL POC Glucose (mg/dL) 140 H (75-99) mg/dL CK-MB (CK-2) (0.0-2.4) ng/mL Troponin I (0.000-0.034) ng/mL 10/22/16 Range/Units 05:51 Neutrophils # (1.3-7.7) k/uL Lymphocytes # (1.0-4.8) k/uL BUN (9-20) mg/dL Creatinine (0.66-1.25) mg/dL Glucose (74-99) mg/dL POC Glucose (mg/dL) 117 H (75-99) mg/dL CK-MB (CK-2) (0.0-2.4) ng/mL Troponin I (0.000-0.034) ng/mL Assessment and Plan Plan: From the cardiac standpoint, patient can be discharged home and follow-up with Dr. NANCY Zuñiga as an outpatient. He is going to be discharged on LifeVest.
[2016-10-22 12:06] LABS: Glucose,Whole Blood 116 mg/dL (75-99)
[2016-10-22] MEDS: LATANOPROST 0.005% OPHTH DROPS 2.5 ML BTL BOTH EYES SCH (20:27)
[2016-10-22 21:03] LABS: Glucose,Whole Blood 157 mg/dL (75-99)
[2016-10-23] MEDS: traMADol 50 MG TAB PO PRN ×2 (02:01→08:30)
[2016-10-23] MEDS: GABAPENTIN 300 MG CAP PO PRN ×2 (02:01→08:30)
[2016-10-23 06:09] LABS: Glucose,Whole Blood 129 mg/dL (75-99)
[2016-10-23] MEDS: INSULIN LISPRO (humaLOG) 300 UNIT/3 ML VIAL SQ SCH (06:18)
[2016-10-23] MEDS: CARVEDILOL 6.25 MG TAB PO SCH (06:33)
[2016-10-23] MEDS: CLOPIDOGREL 75 MG TAB PO SCH (08:28)
[2016-10-23] MEDS: SPIRONOLACTONE 25 MG TAB PO SCH (08:28)
[2016-10-23] MEDS: LISINOPRIL 5 MG TAB PO SCH (08:28)
[2016-10-23] MEDS: PILOCARPINE 1% OPHTH DROPS 15 ML BTL RIGHT EYE SCH (08:29)
[2016-10-23] MEDS: FUROSEMIDE 10 MG/ML 4 ML VIAL IV SCH (08:29)
[2016-10-23] MEDS: AMIODARONE 200 MG TAB PO SCH (08:29)
[2016-10-23] MEDS: ATORVASTATIN 40 MG TAB PO SCH (08:29)
[2016-10-23] MEDS: ASPIRIN 81 MG PO SCH (08:29)
[2016-10-23] MEDS: DORZOLAMIDE HCL 2% DROPS 10 ML BTL RIGHT EYE SCH (08:31)
[2016-10-23 09:33] VITALS: BP 122/65; PULSE 66; RESP 20; TEMP 98
--- NOTE | 2016-10-23 10:04 | PN ---
CHIEF COMPLAINT: Re-evaluation. HISTORY OF PRESENT ILLNESS: This 76-year-old gentleman is status post cardioversion for sustained ventricular tachycardia and subsequently a stent placement in the LAD. The patient has also ischemic cardiomyopathy. He complains of shortness of breath, PND and orthopnea. Denies any chest pain. REVIEW OF SYSTEMS: NEURO: Does have some headaches. PSYCH: No anxiety. Some apprehension. CARDIAC: No chest pain, angina, palpitation. RESPIRATORY: No shortness of breath, cough. GI: No nausea, vomiting, abdominal pain or diarrhea. : No symptoms of dysuria or hematuria. EXTREMITIES: Denies pain., edema. CONSTITUTIONAL: No fever or chills. PHYSICAL EXAMINATION: Pleasant gentleman in no distress. VITAL SIGNS: Reveal temperature 97.9, pulse 55, respirations 20, blood pressure 117/57, pulse ox 94% on room air. HEENT: Normocephalic. NECK: No JVD. CHEST: Clear to auscultation with mild decreased airflow. CARDIAC: Distant heart tones, S1/S2 with no gallops. Systolic murmur 2/6 at the apex. ABDOMEN: Soft. Bowel sounds present. EXTREMITIES: Reveal trace edema. NEUROLOGIC: Awake, alert, oriented with well coordinated movements. LABORATORY ASSESSMENT: CBC is normal. Electrolytes normal. BUN 21, creatinine 1.5. BNP of 3450. Chest x-ray reveals pleural effusion and mild pulmonary venous congestion and cardiomegaly suggestive of CHF. ASSESSMENT: 1. Acute congestive cardiac failure secondary to systolic dysfunction. 2. Ischemic cardiomyopathy. 3. Status post cardioversion for ventricular tachycardia. 4. Coronary artery disease status post PTCA. 5. Acute myocardial infarction. 6. Chronic headaches. PLAN: The patient is stable at present. Continue present medical regimen. Patient will be given Lasix IV. Prognosis remains guarded. MTDD
[2016-10-23 11:19] LABS: Glucose,Whole Blood 104 mg/dL (75-99)
--- NOTE | 2016-10-23 12:02 | P.PN ---
Subjective Principal diagnosis: Sustained ventricular tachycardia/acute coronary event This is a pleasant 76-year-old gentleman who sees Dr. NANCY Zuñiga as an outpatient with a known history of CAD, diabetes, hypertension, dyslipidemia who presented to the hospital with weakness, sweating, and chest discomfort as well. In the emergency room the patient was found to be in sustained ventricular tachycardia and then converted to normal sinus mechanism. The EKG after conversion showed ST changes concerning for ischemia and in view of that the patient underwent an emergent heart catheterization which showed intermediate to severe CAD involving the left main and LAD. The patient underwent yesterday and FFR of the LAD and that came in to be ischemic at 0.80. Subsequently he underwent successful stenting of the LAD with a good angiographic results. From the cardiac standpoint of view, the patient can be discharged home. He is going to be discharged on LifeVest and follow-up with Dr. NANCY Zuñiga. Objective - Vital Signs Vital signs: Vital Signs Temp 98.0 F 10/23/16 08:00 Pulse 66 10/23/16 08:00 Resp 20 10/23/16 08:00 BP 122/65 10/23/16 08:00 Pulse Ox 95 10/23/16 08:00 Intake & Output 10/22/16 10/23/16 10/23/16 18:59 06:59 18:59 Intake Total 480 0 200 Output Total 300 Balance 480 -300 200 Weight 103.5 kg Intake: Intake, IV Titration 0 Amount Sodium Chloride 0.9% 1, 0 000 ml @ 75 mls/hr IV . [id number] COUNTS INCLUDE 234 BEDS AT THE [facility] Rx#:[id number] Oral 480 200 Output: Urine 300 Other: Voiding Method Urinal # Voids 1 ABP, PAP, CO, CI - Last Documented Arterial Blood Pressure 140/67 - Constitutional General appearance: Present: no acute distress - Respiratory Respiratory: bilateral: CTA - Cardiovascular Rhythm: regular Heart sounds: normal: S1, S2 - Labs CBC & Chem 7: 10/22/16 05:50 10/22/16 05:50 Labs: Abnormal Lab Results - Last 24 Hours (Table) 10/22/16 10/22/16 10/23/16 Range/Units 11:47 21:02 06:08 POC Glucose (mg/dL) 116 H 157 H 129 H (75-99) mg/dL 10/23/16 Range/Units 11:18 POC Glucose (mg/dL) 104 H (75-99) mg/dL Assessment and Plan Plan: From the cardiac standpoint, patient can be discharged home and follow-up with Dr. NANCY Zuñiga as an outpatient. He is going to be discharged on LifeVest.
--- NOTE | 2016-10-24 08:23 | PN ---
DATE OF SERVICE: 10/23/16 CHIEF COMPLAINT: Reevaluation. HISTORY OF PRESENT ILLNESS: This is a 76-year-old gentleman admitted to the hospital with sustained ventricular tachycardia and subsequently noted to have on cardiac catheterization noted to have ( ) occlusions. He had a previous RCA occlusion. Noted to have stenosis in the LAD. The patients enzymes were suggestive of probable subendocardial NH. The patient, however, also had been cardioverted. Echocardiogram revealed ejection fraction of 25%. The patient was loaded with amiodarone and was continued on amiodarone. The patient subsequently underwent another cardiac catheterization and FFR that revealed the patient had a blockage of about 0.8. Thus, underwent stent placement. Post cath, the patient is doing fairly well. He did have yesterday some symptoms of congestive cardiac failure. He was diuresed with no symptoms of orthopnea, PND or dyspnea today. The patient has been up and walking around. In view of the above, the patient is planned for discharge. REVIEW OF SYSTEMS: NEURO: Has history of chronic headaches but better today. No dizziness. PSYCH: No anxiety. CARDIAC: No chest pain, angina or palpitations. RESPIRATORY: Denies shortness of breath, cough, hemoptysis. GI: No nausea, vomiting, abdominal pain. No diarrhea. No bowel movement today. : No symptoms of dysuria or hematuria. EXTREMITIES: Denies pain or edema. CONSTITUTIONAL: No fever or chills. PHYSICAL EXAM: Pleasant gentleman in no distress. Vital signs reveals temperature 98. Pulse rate 66, respirations 20. Blood pressure 122/65. HEENT: Normocephalic. Neck supple. No JVD. Chest clear to auscultation and percussion. Cardiac normal S1, S2 with no gallops. Systolic murmur 2/6 at the left sternal border. Abdomen soft. Protuberant. Bowel sounds present. Extremities reveal mild decreased pedal pulse. Neurological: Awake, alert and oriented times three with well coordinated movements. LABORATORY DATA: Blood sugar 129. IMPRESSION: 1. Sustained ventricular tachycardia status post conversion. 2. Subendocardial myocardial infarction. 3. Coronary artery disease status post stent. 4. Ischemic cardiomyopathy 5. Hypertension. 6. Diabetes mellitus. 7. Chronic kidney disease Stage III. PLAN: The patient is stable. Continue present medical regimen. He is going to be discharged home. The patient can go home with defibrillation vest. The patients medications are reviewed with him and his . ( ) inquiries are answered to his satisfaction. The patient will be discharged today. Prognosis remains guarded. MTDD
--- NOTE | 2016-11-23 13:35 | P.DS ---
Providers Date of admission: 10/18/16 17:19 Attending physician: Masoud Omalley Consults: 10/18/16 17:19 Consult Physician Urgent Consulting Provider: Minor Larios Consult Reason/Comments: stemi Do you want consulting provider notified?: Yes 10/18/16 18:27 Consult Physician Urgent Consulting Provider: Bert Beck Consult Reason/Comments: stemi Do you want consulting provider notified?: Yes 10/21/16 11:52 Consult Physician Routine Consulting Provider: [facility] Consult Reason/Comments: Post Interventional patient Do you want consulting provider notified?: Already Contacted Primary care physician: [facility] Course: 76-year-old gentleman was brought to the emergency room follow having a near- syncopal episode and collapsed. Patient went home and took his nitroglycerin without much help. The patient was having some associated chest pain. His drove him to the hospital. In the ER patient noted to be in sustained ventricular tachycardia with hypotension. The patient was shocked and converted back into sinus rhythm. There was some ST changes and in view of this patient was taken to the emergency cardiac catheterization. His mast maker Dr. NANCY BECK ischemic cardiomyopathy Noted That He Had a 50-60% Mid LAD [place]. He [place] This Was Not Critical at This Time. The Patient in View of This Was Placed on Amiodarone Drip and Admitted to the hospital. Following hospitalization patient had serial cardiac enzymes done. His echocardiogram also repeated which revealed that his ejection fraction had dropped below 25% in the range of 20-25. Normally runs about 40%. There was generalized hypokinesis with a previous old inferior wall akinesia. Patient in view of this was evaluated by Dr. Chavez for possibility of an AICD placement. Meanwhile his troponins came back quite high with a [address] Larios at this point was covering and recommended that the patient be restudied. The patient was in view of this reevaluated by Dr. NANCY Beck taken in for a cardiac catheterization and a fractional flow reserve assessment was done. It was noted the patient had a 0.8. This was marginal however due to patient's given presentation and status it was elected to place a drug-eluting stent. Patient tolerated procedure well. The patient however cannot have at the AICD. As per protocol the patient was placed on a defibrillating vest to be reassessed in 30 days regarding his left ventricular function. Patient was maximized on VIV inhibitor ,placed on Aldactone and Lasix. Patient condition and remains stable and thus discharged home to be followed up as an outpatient. During the hospital stay patient's condition was discussed with the patient daughters and himself. Patient educated regarding his medications and in future if an event like this occurs to call EMS rather than driving home and then drives to the hospital from home Final diagnosis to include 1. Ventricular tachycardia sustained 2. Subendocardial myocardial infarction 3. Coronary atherosclerosis 4. Ischemic myopathy 5. Acute illness guarding failure secondary to systolic dysfunction 6. Chronic kidney disease stage III 7. History of carcinoma prostate 8. Diabetes medicines 9. Diabetes mellitus type 2 with chronic kidney disease 10. Cervical degenerative arthritis with chronic headaches Patient Condition at Discharge: Critical Plan - Discharge Summary New Discharge Prescriptions: New Atorvastatin [Lipitor] 40 mg PO DAILY #30 tab Clopidogrel [Plavix] 75 mg PO DAILY #30 tab Nitroglycerin Sl Tabs [Nitrostat] 0.4 mg SUBLINGUAL Q5M PRN #25 tab PRN Reason: Chest Pain Carvedilol [Coreg] 6.25 mg PO BID-W/MEALS tab Continue Aspirin EC [Ecotrin Low Dose] 81 mg PO DAILY #100 tablet. metFORMIN HCL ER [Glucophage Xr] 500 mg PO DAILY Furosemide [Lasix] 20 mg PO DAILY Gabapentin [Neurontin] 300 mg PO TID PRN PRN Reason: Pain Latanoprost [Xalatan 0.005%] 1 drop BOTH EYES HS Pil[place]arpine 1% Ophth Soln [Isopto Carpine 1%] 1 drops RIGHT EYE BID Dorzolamide 2% [Trusopt 2%] 1 drops RIGHT EYE BID Discontinued Simvastatin [Zocor] 40 mg PO HS tab Lisinopril [Zestril] 20 mg PO BID Naproxen [Naprosyn] 375 mg PO BID No Action Amiodarone [Cordarone] 400 mg PO DAILY #30 tab Nitroglycerin Sl Tabs [Nitrostat] 0.4 mg SUBLINGUAL Q5M PRN tab PRN Reason: Chest Pain traMADol HCl [Ultram] 50 mg PO QID PRN tab PRN Reason: Generalized pain Discharge Medication List Aspirin EC [Ecotrin Low Dose] 81 mg PO DAILY #100 tablet. 06/24/14 [Rx] Furosemide [Lasix] 20 mg PO DAILY 10/18/16 [History] Gabapentin [Neurontin] 300 mg PO TID PRN 10/18/16 [History] Latanoprost [Xalatan 0.005%] 1 drop BOTH EYES HS 10/18/16 [History] Pilocarpine 1% Ophth Soln [Isopto Carpine 1%] 1 drops RIGHT EYE BID 10/18/16 [ History] metFORMIN HCL ER [Glucophage Xr] 500 mg PO DAILY 10/18/16 [History] Dorzolamide 2% [Trusopt 2%] 1 drops RIGHT EYE BID 10/19/16 [History] Atorvastatin [Lipitor] 40 mg PO DAILY #30 tab 10/22/16 [Rx] Clopidogrel [Plavix] 75 mg PO DAILY #30 tab 10/22/16 [Rx] Nitroglycerin Sl Tabs [Nitrostat] 0.4 mg SUBLINGUAL Q5M PRN #25 tab 10/22/16 [Rx ] Carvedilol [Coreg] 6.25 mg PO BID-W/MEALS tab 10/23/16 [Rx] Amiodarone [Cordarone] 400 mg PO DAILY #30 tab 11/21/16 [Rx] Nitroglycerin Sl Tabs [Nitrostat] 0.4 mg SUBLINGUAL Q5M PRN tab 11/21/16 [Rx] traMADol HCl [Ultram] 50 mg PO QID PRN tab 11/21/16 [Rx] Follow up Appointment(s)/Referral(s): Masoud Omalley MD [Primary Care Provider] - 10/25/16 4:00 pm Bert Beck MD [STAFF PHYSICIAN] - 1 Week (The office will call with an appointment.) Patient Instructions/Handouts: Heart Catheterization (DC), Tachycardia (GEN) Discharge Disposition: HOME WITH HOME HEALTH SERVICES
== END 2016-10-23 11:55 | disposition home health service (06) | DRG 246 ==
LOC: EC 16:48 → 6ICU 17:19 → 6SEL 10-19 18:40
PROVIDERS: ADMIT Internal Medicine; ATTEND Internal Medicine
PROC: 4A023N7 Measurement of Cardiac Sampling and Pressure, Left Heart, Percutaneous Approach (ICD-10-PCS; 2016-10-18)
PROC: B2111ZZ Fluoroscopy of Multiple Coronary Arteries using Low Osmolar Contrast (ICD-10-PCS; 2016-10-18)
PROC: 5A2204Z Restoration of Cardiac Rhythm, Single (ICD-10-PCS; principal; 2016-10-18 17:40)
PROC: B2101ZZ Fluoroscopy of Single Coronary Artery using Low Osmolar Contrast (ICD-10-PCS; 2016-10-21)
PROC: 4A033BC Measurement of Arterial Pressure, Coronary, Percutaneous Approach (ICD-10-PCS; 2016-10-21)
PROC: 027034Z Dilation of Coronary Artery, One Artery with Drug-eluting Intraluminal Device, Percutaneous Approach (ICD-10-PCS; 2016-10-21 10:00)
PROC: 4A023N7 Measurement of Cardiac Sampling and Pressure, Left Heart, Percutaneous Approach (ICD-10-PCS; 2016-10-21 10:00)
DX: I47.2 Ventricular tachycardia (principal); I50.21 Acute systolic (congestive) heart failure; I21.4 Non-ST elevation (NSTEMI) myocardial infarction; I42.0 Dilated cardiomyopathy; I13.0 Hypertensive heart and chronic kidney disease with heart failure and stage 1 through stage 4 chronic kidney disease, or unspecified chronic kidney disease; E11.22 Type 2 diabetes mellitus with diabetic chronic kidney disease; I25.82 Chronic total occlusion of coronary artery; J44.9 Chronic obstructive pulmonary disease, unspecified; N18.3 Chronic kidney disease, stage 3 (moderate); G89.29 Other chronic pain; M25.519 Pain in unspecified shoulder; M19.90 Unspecified osteoarthritis, unspecified site; E66.9 Obesity, unspecified; M54.12 Radiculopathy, cervical region; F41.9 Anxiety disorder, unspecified; I25.5 Ischemic cardiomyopathy; M54.9 Dorsalgia, unspecified; E78.5 Hyperlipidemia, unspecified; I25.119 Atherosclerotic heart disease of native coronary artery with unspecified angina pectoris; R51 Headache; R55 Syncope and collapse; Z87.19 Personal history of other diseases of the digestive system; Z87.438 Personal history of other diseases of male genital organs; I25.2 Old myocardial infarction; Z87.891 Personal history of nicotine dependence; Z85.46 Personal history of malignant neoplasm of prostate; Z79.899 Other long term (current) drug therapy; Z88.6 Allergy status to analgesic agent; Z88.8 Allergy status to other drugs, medicaments and biological substances; Z79.84 Long term (current) use of oral hypoglycemic drugs; Z79.82 Long term (current) use of aspirin; Z95.0 Presence of cardiac pacemaker; Z90.79 Acquired absence of other genital organ(s); Z79.1 Long term (current) use of non-steroidal anti-inflammatories (NSAID)
CPT/HCPCS: 36415; 71010; 80048; 80053; 80061; 82550; 82553; 83036; 83735; 83880; 84484; 85025; 85049; 85610; 85730; 93005; 93306; 93458; 93571; 93572; 94760; 96365; 96375; 99291

== ENCOUNTER 2016-11-19 09:02 | Inpatient (IN) | payer MEDICARE, BC ==
[2016-11-19] MEDS ORDERED: SODIUM CHLORIDE 0.9% 1,000 ML IV STA ×2 (09:29→10:48)
[2016-11-19 09:44] LABS: Basophils % (A) 1 %; Eosinophils # (A) 0.3 k/uL (0-0.7); Eosinophils % (A) 5 %; HCT 38.3 % (39.0-53.0); HDW 2.94; HGB 13.1 gm/dL (13.0-17.5); Luc # (Auto) 0.12; Luc % (Auto) 2; Lymphocytes # (A) 0.7 k/uL (1.0-4.8); Lymphocytes % (A) 10 %; MCH 32.3 pg (25.0-35.0); MCHC 34.2 g/dL (31.0-37.0); MCV 94.6 fL (80.0-100.0); Mean Platelet Volume 7.9; Monocytes # (A) 0.4 k/uL (0-1.0); Monocytes % (A) 6 %; Neutrophils # (A) 5.2 k/uL (1.3-7.7); Neutrophils % (A) 77 %; RBC 4.05 m/uL (4.30-5.90); RDW 15.8 % (11.5-15.5); WBC 6.8 k/uL (3.8-10.6); WBC (Perox) 7.37
[2016-11-19 09:49] LABS: Prothrombin Time 10.3 sec (9.0-12.0)
[2016-11-19 09:51] LABS: Magnesium 2.3 mg/dL (1.6-2.3); Total Bilirubin 0.8 mg/dL (0.2-1.3); Total Protein 7.1 g/dL (6.3-8.2)
--- NOTE | 2016-11-19 09:54 | ED ---
General Adult HPI - General Chief complaint: Chest Pain Stated complaint: Chest Pain Time Seen by Provider: 11/19/16 09:29 Source: patient, RN notes reviewed, old records reviewed Mode of arrival: wheelchair Limitations: no limitations - History of Present Illness Initial comments: This is a 76-year-old male here for evaluation of chest pain. Anterior left- sided chest pain rating to left shoulder area to left jaw radiating to left arm. No nausea vomiting no diaphoresis occasional shortness of breath. Significant recent history of heart disease with stent. Patient states taking medication as prescribed, no recent travel history no sick contacts no fevers. - Related Data Home Medications Medication Instructions Recorded Confirmed Furosemide [Lasix] 20 mg PO DAILY 10/18/16 11/19/16 Gabapentin [Neurontin] 300 mg PO TID PRN 10/18/16 11/19/16 Latanoprost [Xalatan 0.005%] 1 drop BOTH EYES HS 10/18/16 11/19/16 Pilocarpine 1% Ophth Soln [Isopto 1 drops RIGHT EYE BID 10/18/16 11/19/16 Carpine 1%] metFORMIN HCL ER [Glucophage Xr] 500 mg PO DAILY 10/18/16 11/19/16 Dorzolamide 2% [Trusopt 2%] 1 drops RIGHT EYE BID 10/19/16 11/19/16 Amiodarone [Cordarone] 400 mg PO BID-W/MEALS 11/19/16 11/19/16 Previous Rx's Medication Instructions Recorded Aspirin EC [Ecotrin Low Dose] 81 mg PO DAILY #100 tablet. 06/24/14 Atorvastatin [Lipitor] 40 mg PO DAILY #30 tab 10/22/16 Clopidogrel [Plavix] 75 mg PO DAILY #30 tab 10/22/16 Nitroglycerin Sl Tabs [Nitrostat] 0.4 mg SUBLINGUAL Q5M PRN #25 tab 10/22/16 Spironolactone [Aldactone] 25 mg PO DAILY #30 tab 10/22/16 Carvedilol [Coreg] 6.25 mg PO BID-W/MEALS tab 10/23/16 Lisinopril [Prinivil] 20 mg PO DAILY #30 tablet 10/23/16 Allergies Allergy/AdvReac Type Severity Reaction Status Date / Time atorvastatin calcium Allergy Unknown Verified 11/19/16 09:55 [From Lipitor] hydrocodone bitartrate AdvReac Confusion Verified 11/19/16 09:55 [From Vicodin] Review of Systems ROS Statement: Those systems with pertinent positive or pertinent negative responses have been documented in the HPI. ROS Other: All systems not noted in ROS Statement are negative. Past Medical History Past Medical History: Coronary Artery Disease (CAD), Diabetes Mellitus, Hyperlipidemia, Hypertension, Myocardial Infarction (MS), Osteoarthritis (OA), Pneumonia, Prostate Disorder, Pulmonary Embolus (PE) Additional Past Medical History / Comment(s): Pt states my "RCA 99% is blocked and my LCA 17% blocked since 1980,and been that way ever since", "headache", past gout,glaucoma rt , fragile skin bruises easily Last Myocardial Infarction Date:: 1980 History of Any Multi-Drug Resistant Organisms: None Reported Past Surgical History: Back Surgery, Heart Catheterization, Hernia Repair Additional Past Surgical History / Comment(s): cataracts removed Past Anesthesia/Blood Transfusion Reactions: No Reported Reaction Past Psychological History: No Psychological Hx Reported Smoking Status: Former smoker Past Alcohol Use History: None Reported Past Drug Use History: None Reported - Past Family History Mother Family Medical History: Unable to Obtain Father Family Medical History: Unable to Obtain General Exam Limitations: no limitations General appearance: alert, in no apparent distress Head exam: Present: atraumatic, normocephalic, normal inspection Eye exam: Present: normal appearance, PERRL, EOMI. Absent: scleral icterus, conjunctival injection, periorbital swelling ENT exam: Present: normal exam, mucous membranes moist Neck exam: Present: normal inspection. Absent: tenderness, meningismus, lymphadenopathy Respiratory exam: Present: normal lung sounds bilaterally. Absent: respiratory distress, wheezes, rales, rhonchi, stridor Cardiovascular Exam: Present: regular rate, normal rhythm, normal heart sounds. Absent: systolic murmur, diastolic murmur, rubs, gallop, clicks GI/Abdominal exam: Present: soft, normal bowel sounds. Absent: distended, tenderness, guarding, rebound, rigid Extremities exam: Present: normal inspection, full ROM, normal capillary refill. Absent: tenderness, pedal edema, joint swelling, calf tenderness Back exam: Present: normal inspection Neurological exam: Present: alert, oriented X3, CN II-XII intact Psychiatric exam: Present: normal affect, normal mood Skin exam: Present: warm, dry, intact, normal color. Absent: rash Course Vital Signs 11/19/16 11/19/16 11/19/16 09:02 09:15 10:04 Temperature 97.8 F Pulse Rate 50 L 45 L Pulse Rate [ 46 L Identification Technician ] Respiratory 20 20 Rate Blood Pressure 117/59 160/74 O2 Sat by Pulse 99 96 Oximetry 11/19/16 11:11 Temperature Pulse Rate 47 L Pulse Rate [ Identification Technician ] Respiratory 18 Rate Blood Pressure 145/68 O2 Sat by Pulse 99 Oximetry - Reevaluation(s) Reevaluation #1: 11/19/16 10:50 Patient still with recurrent pain episodes here in the ER EKG Findings - EKG Comments: EKG Findings:: EKG shows sinus bradycardia rate of 45, OR 200, QRS 06, QTC 411 Medical Decision Making - Medical Decision Making 70 formality ER for evaluation of chest pain. Recurrent episodic chest pain. Elevated potassium, no EKG or troponin changes. Patient is on Aldactone, no other supplementary potassium. Patient will be admitted for cardiac observation with concurrent dehydration and hyperkalemia - Lab Data Result diagrams: 11/19/16 09:11 11/19/16 09:11 Lab Results 11/19/16 11/19/16 11/19/16 Range/Units 09:11 09:11 09:11 WBC 6.8 (3.8-10.6) k/uL RBC 4.05 L (4.30-5.90) m/uL Hgb 13.1 (13.0-17.5) gm/dL Hct 38.3 L (39.0-53.0) % MCV 94.6 (80.0-100.0) fL MCH 32.3 (25.0-35.0) pg MCHC 34.2 (31.0-37.0) g/dL RDW 15.8 H (11.5-15.5) % Plt Count 144 L (150-450) k/uL Neutrophils % 77 % Lymphocytes % 10 % Monocytes % 6 % Eosinophils % 5 % Basophils % 1 % Neutrophils # 5.2 (1.3-7.7) k/uL Lymphocytes # 0.7 L (1.0-4.8) k/uL Monocytes # 0.4 (0-1.0) k/uL Eosinophils # 0.3 (0-0.7) k/uL Basophils # 0.0 (0-0.2) k/uL PT (9.0-12.0) sec INR (<1.2) APTT (22.0-30.0) sec Sodium 141 (137-145) mmol/L Potassium 6.2 H* (3.5-5.1) mmol/L Chloride 109 H (98-107) mmol/L Carbon Dioxide 20 L (22-30) mmol/L Anion Gap 12 mmol/L BUN 47 H (9-20) mg/dL Creatinine 2.54 H (0.66-1.25) mg/dL Est GFR (MDRD) Af Amer 30 (>60 ml/min/1.73 sqM) Est GFR (MDRD) Non-Af 25 (>60 ml/min/1.73 sqM) Glucose 97 (74-99) mg/dL Calcium 9.0 (8.4-10.2) mg/dL Magnesium 2.3 (1.6-2.3) mg/dL Total Bilirubin 0.8 (0.2-1.3) mg/dL AST 24 (17-59) U/L ALT 28 (21-72) U/L Alkaline Phosphatase 108 (38-126) U/L Total Creatine Kinase 38 L (55-170) U/L CK-MB (CK-2) 1.4 (0.0-2.4) ng/mL CK-MB (CK-2) Rel Index 3.7 Troponin I 0.022 (0.000-0.034) ng/mL Total Protein 7.1 (6.3-8.2) g/dL Albumin 3.8 (3.5-5.0) g/dL Lipase 169 (23-300) U/L 11/19/16 Range/Units 09:11 WBC (3.8-10.6) k/uL RBC (4.30-5.90) m/uL Hgb (13.0-17.5) gm/dL Hct (39.0-53.0) % MCV (80.0-100.0) fL MCH (25.0-35.0) pg MCHC (31.0-37.0) g/dL RDW (11.5-15.5) % Plt Count (150-450) k/uL Neutrophils % % Lymphocytes % % Monocytes % % Eosinophils % % Basophils % % Neutrophils # (1.3-7.7) k/uL Lymphocytes # (1.0-4.8) k/uL Monocytes # (0-1.0) k/uL Eosinophils # (0-0.7) k/uL Basophils # (0-0.2) k/uL PT 10.3 (9.0-12.0) sec INR 1.0 (<1.2) APTT 18.8 L (22.0-30.0) sec Sodium (137-145) mmol/L Potassium (3.5-5.1) mmol/L Chloride (98-107) mmol/L Carbon Dioxide (22-30) mmol/L Anion Gap mmol/L BUN (9-20) mg/dL Creatinine (0.66-1.25) mg/dL Est GFR (MDRD) Af Amer (>60 ml/min/1.73 sqM) Est GFR (MDRD) Non-Af (>60 ml/min/1.73 sqM) Glucose (74-99) mg/dL Calcium (8.4-10.2) mg/dL Magnesium (1.6-2.3) mg/dL Total Bilirubin (0.2-1.3) mg/dL AST (17-59) U/L ALT (21-72) U/L Alkaline Phosphatase (38-126) U/L Total Creatine Kinase (55-170) U/L CK-MB (CK-2) (0.0-2.4) ng/mL CK-MB (CK-2) Rel Index Troponin I (0.000-0.034) ng/mL Total Protein (6.3-8.2) g/dL Albumin (3.5-5.0) g/dL Lipase (23-300) U/L - Radiology Data Radiology results: report reviewed (Chest x-ray is negative for acute disease), image reviewed Critical Care Time Critical Care Time: Yes Total Critical Care Time: 31 Disposition Clinical Impression: Chest pain, Old inferior wall myocardial infarction, Chronic renal failure, ARF (acute renal failure), Hyperkalemia Disposition: ADMITTED IP TO THIS [facility] Condition: Fair Referrals: Masoud Omalley MD [Primary Care Provider] - 1-2 days
[2016-11-19 09:55] LABS: Potassium 6.2 mmol/L (3.5-5.1)
--- NOTE | 2016-11-19 09:59 | XR ---
EXAMINATION TYPE: XR chest 2V DATE OF EXAM: 11/19/2016 COMPARISON: Chest x-ray October 21, 2016 HISTORY: Chest pain. TECHNIQUE: Frontal and lateral views of the chest are obtained. FINDINGS: There is no focal air space opacity, pleural effusion, or pneumothorax seen. The cardiac silhouette size remains enlarged. There is interval improvement in central vascular congestion. Mult ilevel spurring in the spine is redemonstrated. IMPRESSION: Cardiomegaly without acute pulmonary process currently.
[2016-11-19 10:03] LABS: Partial Thromboplastin Time 18.8 sec (22.0-30.0)
[2016-11-19 10:25] LABS: Creatine Kinase MB 1.4 ng/mL (0.0-2.4); Troponin I 0.022 ng/mL (0.000-0.034)
[2016-11-19] MEDS ORDERED: INSULIN REGULAR 100 UNIT/ML VIAL IV ONE (10:48)
[2016-11-19] MEDS ORDERED: DEXTROSE 50%-WATER 50 ML SYRINGE IVP STA (10:48)
[2016-11-19] MEDS ORDERED: SODIUM CHLORIDE 0.9% 500 ML IV STA (10:48)
[2016-11-19] MEDS ORDERED: HEPARIN SODIUM,PORCINE 5,000 UNIT/ML 1 ML VIAL IV PRN (11:36)
[2016-11-19] MEDS ORDERED: HEPARIN SODIUM,PORCINE 5,000 UNIT/ML 1 ML VIAL IV ONE (11:36)
[2016-11-19] MEDS ORDERED: ASPIRIN 81 MG PO STA (11:36)
[2016-11-19] MEDS ORDERED: NITROGLYCERIN SL TABS 0.4 MG TAB SUBLINGUAL PRN ×2 (11:36→17:13)
[2016-11-19] MEDS: HEPARIN SODIUM,PORCINE/D5W PMX 25,000 UNIT in DEXTROSE/WATER 1 500ML.BAG IV SCH ×3 (15:43→18:52)
[2016-11-19 15:54] LABS: Glucose,Whole Blood 89 mg/dL (75-99)
[2016-11-19 15:55] LABS: Glucose,Whole Blood 118 mg/dL (75-99)
[2016-11-19 15:55] LABS: Glucose,Whole Blood 46 mg/dL (75-99)
[2016-11-19 17:06] LABS: Creatine Kinase 33 U/L (55-170)
[2016-11-19 17:19] LABS: Creatine Kinase MB 1.4 ng/mL (0.0-2.4); Troponin I <0.012 ng/mL (0.000-0.034)
[2016-11-19] MEDS: CARVEDILOL 6.25 MG TAB PO SCH (18:43)
[2016-11-19] MEDS: DIAZEPAM 5 MG TAB PO SCH ×2 (18:43→21:34)
[2016-11-19] MEDS: AMIODARONE 200 MG TAB PO SCH (18:43)
[2016-11-19] MEDS: GABAPENTIN 300 MG CAP PO PRN ×2 (18:44→21:34)
[2016-11-19 20:49] LABS: Glucose,Whole Blood 113 mg/dL (75-99)
[2016-11-19] MEDS: PILOCARPINE 1% OPHTH DROPS 15 ML BTL RIGHT EYE SCH (21:27)
[2016-11-19] MEDS: DORZOLAMIDE HCL 2% DROPS 10 ML BTL RIGHT EYE SCH (21:27)
[2016-11-19] MEDS: LATANOPROST 0.005% OPHTH DROPS 2.5 ML BTL BOTH EYES SCH (21:28)
[2016-11-19 21:34] LABS: Creatine Kinase 31 U/L (55-170)
[2016-11-19 21:45] LABS: Troponin I <0.012 ng/mL (0.000-0.034)
[2016-11-20 06:18] LABS: Mean Platelet Volume 8.3
[2016-11-20 06:22] LABS: Glucose,Whole Blood 98 mg/dL (75-99)
[2016-11-20] MEDS: AMIODARONE 200 MG TAB PO SCH ×3 (06:23→21:52)
[2016-11-20] MEDS: GABAPENTIN 300 MG CAP PO PRN ×3 (06:24→21:52)
[2016-11-20] MEDS: CARVEDILOL 6.25 MG TAB PO SCH ×2 (06:24→16:32)
[2016-11-20 06:42] LABS: Calcium 8.8 mg/dL (8.4-10.2); Potassium 5.5 mmol/L (3.5-5.1)
[2016-11-20] MEDS: SODIUM CHLORIDE 0.9% 1,000 ML IV SCH (06:59)
[2016-11-20] MEDS: DORZOLAMIDE HCL 2% DROPS 10 ML BTL RIGHT EYE SCH ×2 (08:06→21:56)
[2016-11-20] MEDS: PILOCARPINE 1% OPHTH DROPS 15 ML BTL RIGHT EYE SCH ×2 (08:06→21:55)
[2016-11-20] MEDS: ATORVASTATIN 40 MG TAB PO SCH (08:07)
[2016-11-20] MEDS: ASPIRIN 81 MG PO SCH (08:07)
[2016-11-20] MEDS: CLOPIDOGREL 75 MG TAB PO SCH (08:07)
[2016-11-20] MEDS: DIAZEPAM 5 MG TAB PO SCH ×4 (08:11→21:52)
--- NOTE | 2016-11-20 08:51 | P.CRDCN ---
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 Patient went home with a LifeVest. The plan at that stage was to repeat an echocardiogram in our office 3 weeks 2 weeks from now and if he still has LV dysfunction consider AICD. Patient comes in with them sharp left-sided pericardial pain. It is sharp precordial mild intensity without definite radiation to neck, back unassociated with diaphoresis and unrelated to exertion. He is admitted to hospital primarily because and his initial presentation he had elevated potassium secondary to Aldactone. He is does not have any symptoms of congestive heart failure. And is not having anginal symptoms. I reviewed his angiographic data records from last visit. The plan at this stage is to continue with the current optimal medical therapy stop the Aldactone: Not given Aldactone in future. He will keep his appointment in our office have the echocardiogram and AICD subsequently. Review of Systems Constitutional: Denies chills. Denies fever. Eyes: Denies blurred vision. Denies pain. Ears, nose, mouth and throat: Denies headache. Denies sore throat. Cardiovascular: has chest pain. Denies shortness of breath. Respiratory: Denies cough. Gastrointestinal: Denies abdominal pain. Denies diarrhea. Denies nausea. Denies vomiting. Musculoskeletal: Denies myalgias. Integumentary: Denies pruritus. Denies rash. Neurological: Denies numbness. Denies weakness. Psychiatric: Denies anxiety. Denies depression. Endocrine: Denies fatigue. Denies weight change. Genitourinary: Denies burning, hematuria, frequency of urination. Hematological: No anemia or excess bleeding. Past Medical History Past Medical History: Coronary Artery Disease (CAD), Cancer, Chest Pain / Angina , Diabetes Mellitus, Eye Disorder, Hyperlipidemia, Hypertension, Myocardial Infarction (IN), Osteoarthritis (OA), Pneumonia, Prostate Disorder, Pulmonary Embolus (PE), Renal Disease Additional Past Medical History / Comment(s): NIDDM type II, chronic kidney disease stage III, R eye glaucoma, pulmonary emboli L lung, prostrate cancer with surgery, chronic haider/cervical and shoulder pain, back pain, diverticular dx , past gout. Last Myocardial Infarction Date:: 10/18/16 History of Any Multi-Drug Resistant Organisms: None Reported Past Surgical History: Back Surgery, Heart Catheterization, Heart Catheterization With Stent, Hernia Repair, Prostate Surgery Additional Past Surgical History / Comment(s): Pt admitted to [facility] on 10/18/16 with sustained VTach/syncopy was cardioverted, subendo IN/EF was 25% at that time. Currently wearing life vest. Other hx: lumbar surgery twice, cervical epidural injections, bilateral inguinal hernia repairs, TURP, colonoscopy, hemorrhoidectomy, bilateral cataracts removed Past Anesthesia/Blood Transfusion Reactions: No Reported Reaction Date of Last Stent Placement:: 10/18/16 Past Psychological History: No Psychological Hx Reported Additional Psychological History / Comment(s): Pt is independent. Lives with his in a single level home that has 1 porch step to enter home. No pets. No homecare services. No past service. 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 Pt currently wearing life vest. Smoking Status: Former smoker Past Alcohol Use History: None Reported Additional Past Alcohol Use History / Comment(s): started smoking as teen, quit 1983 was smoking 2ppd Past Drug Use History: None Reported - Past Family History Mother Family Medical History: Unable to Obtain Additional Family Medical History / Comment(s): Mother of unknown cause. Father Family Medical History: Unable to Obtain Additional Family Medical History / Comment(s): Father of unknown cause. Medications and Allergies Home Medications Medication Instructions Recorded Confirmed Type Aspirin EC [Ecotrin Low Dose] 81 mg PO DAILY #100 tablet. 06/24/14 11/19/16 Rx Furosemide [Lasix] 20 mg PO DAILY 10/18/16 11/19/16 History Gabapentin [Neurontin] 300 mg PO TID PRN 10/18/16 11/19/16 History Latanoprost [Xalatan 0.005%] 1 drop BOTH EYES HS 10/18/16 11/19/16 History Pilocarpine 1% Ophth Soln [Isopto 1 drops RIGHT EYE BID 10/18/16 11/19/16 History Carpine 1%] metFORMIN HCL ER [Glucophage Xr] 500 mg PO DAILY 10/18/16 11/19/16 History Dorzolamide 2% [Trusopt 2%] 1 drops RIGHT EYE BID 10/19/16 11/19/16 History Atorvastatin [Lipitor] 40 mg PO DAILY #30 tab 10/22/16 11/19/16 Rx Clopidogrel [Plavix] 75 mg PO DAILY #30 tab 10/22/16 11/19/16 Rx Nitroglycerin Sl Tabs [Nitrostat] 0.4 mg SUBLINGUAL Q5M PRN #25 tab 10/22/1602/23 Rx Spironolactone [Aldactone] 25 mg PO DAILY #30 tab 10/22/16 11/19/16 Rx Carvedilol [Coreg] 6.25 mg PO BID-W/MEALS tab 10/23/16 11/19/16 Rx Lisinopril [Prinivil] 20 mg PO DAILY #30 tablet 10/23/16 11/19/16 Rx Amiodarone [Cordarone] 400 mg PO BID-W/MEALS 11/19/16 11/19/16 History Allergies Allergy/AdvReac Type Severity Reaction Status Date / Time atorvastatin calcium Allergy Unknown Verified 11/19/16 09:55 [From Lipitor] hydrocodone bitartrate AdvReac Confusion Verified 11/19/16 09:55 [From Vicodin] Physical Exam Vitals: Vital Signs Temp Pulse Pulse Resp BP BP Pulse Ox 11/20/16 08:00 96.8 F L 52 L 16 122/59 97 11/20/16 03:58 54 L 18 11/20/16 03:56 97.5 F L 54 L 18 111/59 97 11/20/16 00:00 97.9 F 50 L 16 106/44 98 11/19/16 20:00 97.1 F L 55 L 16 123/64 97 11/19/16 18:54 97.5 F L 55 L 16 145/66 97 11/19/16 16:00 50 L 16 11/19/16 14:11 97.8 F 50 L 18 136/68 100 11/19/16 13:28 45 L 161/69 99 11/19/16 11:11 47 L 18 145/68 99 11/19/16 10:04 45 L 20 160/74 96 11/19/16 09:15 46 L 11/19/16 09:02 97.8 F 50 L 20 117/59 99 Intake and Output 09/02/2311/20/16 11/20/16 22:59 06:59 14:59 Intake Total 303.000 400 360 Output Total 950 Balance 303.000 -550 360 Intake: IV 400 0.9 400 Intake, IV Titration 63.000 Amount Heparin Sodium,Porcine/ 63.000 D5w Pmx 25,000 unit In Dextrose/Water 1 500ml. bag @ 9.59 UNITS/KG/HR 20 mls/hr IV .Q24H [facility] Rx#: [id number] Oral 240 360 Output: Urine 950 Other: # Voids 1 Weight 105.5 kg General: The patient is awake and alert, in no distress, and does not appear acutely ill. Skin: Skin is warm and dry and no rashes or lesions are noted. Eye: Pupils are equal, round and reactive to light, extra-ocular movements are intact; there is normal conjunctiva bilaterally. Ears, nose, mouth and throat: There are moist mucous membranes and no oral lesions. Neck: The neck is supple, there is no tenderness or JVD. Cardiovascular: There is a regular rate and rhythm. No murmur, rub or gallop is appreciated. Respiratory: Lungs are clear to auscultation, respirations are non-labored, breath sounds are equal. Gastrointestinal: Soft, non-distended, non-tender abdomen without masses or organomegaly noted. There is no rebound or guarding present. Bowel sounds are unremarkable. Back: There is no tenderness to palpation in the midline. There is no obvious deformity. Musculoskeletal: Normal ROM, no tenderness, There is no pedal edema. There is no calf tenderness or swelling. Extremities: No edema. Vascular: Femoral pulse is normal. Posterior tibial pulses are normal .Dorsalis pedis is palpable. Neurological: CN II-XII intact. There are no obvious motor or sensory deficits. Speech is normal. Psychiatric: Cooperative, appropriate mood & affect, normal judgment. Results 11/20/16 05:41 11/20/16 05:41 Cardiac Enzymes 11/19/16 11/19/16 11/19/16 Range/Units 09:11 09:11 16:07 AST 24 (17-59) U/L CK-MB (CK-2) 1.4 1.4 (0.0-2.4) ng/mL Troponin I 0.022 <0.012 (0.000-0.034) ng/mL 11/19/16 Range/Units 20:57 AST (17-59) U/L CK-MB (CK-2) 1.0 (0.0-2.4) ng/mL Troponin I <0.012 (0.000-0.034) ng/mL Coagulation 11/19/16 11/19/16 11/19/16 Range/Units 09:11 17:45 23:34 PT 10.3 (9.0-12.0) sec APTT 18.8 L 27.5 22.4 (22.0-30.0) sec 11/20/16 Range/Units 05:41 PT (9.0-12.0) sec APTT 22.4 (22.0-30.0) sec Lipids 11/20/16 Range/Units 05:41 Triglycerides 167 H (<150) mg/dL Cholesterol 119 (<200) mg/dL HDL Cholesterol 28 L (40-60) mg/dL CBC 11/19/16 11/20/16 Range/Units 09:11 05:41 WBC 6.8 (3.8-10.6) k/uL RBC 4.05 L (4.30-5.90) m/uL Hgb 13.1 (13.0-17.5) gm/dL Hct 38.3 L (39.0-53.0) % Plt Count 144 L 128 L (150-450) k/uL Comprehensive Metabolic Panel 11/19/16 11/20/16 Range/Units 09:11 05:41 Sodium 141 143 (137-145) mmol/L Potassium 6.2 H* 5.5 H (3.5-5.1) mmol/L Chloride 109 H 112 H (98-107) mmol/L Carbon Dioxide 20 L 21 L (22-30) mmol/L BUN 47 H 35 H (9-20) mg/dL Creatinine 2.54 H 2.14 H (0.66-1.25) mg/dL Glucose 97 92 (74-99) mg/dL Calcium 9.0 8.8 (8.4-10.2) mg/dL AST 24 (17-59) U/L ALT 28 (21-72) U/L Alkaline Phosphatase 108 (38-126) U/L Total Protein 7.1 (6.3-8.2) g/dL Albumin 3.8 (3.5-5.0) g/dL Current Medications Generic Name Dose Route Start Last Admin Trade Name Freq PRN Reason Stop Dose Admin Amiodarone HCl 200 mg 11/20/16 09:00 11/20/16 08:07 Cordarone PO 200 mg BID [facility] Administration Aspirin 81 mg 11/20/16 09:00 11/20/16 08:07 Aspirin PO 81 mg DAILY ANG[facility]IQUE Administration Atorvastatin Calcium 40 mg 11/20/16 09:00 11/20/16 08:07 Lipitor PO 40 mg DAILY ANGELIQUE Administration Carvedilol 6.25 mg 11/19/16 17:30 11/20/16 06:24 Coreg PO 6.25 mg BID-W/MEALS ANG[facility]IQUE Administration Clopidogrel Bisulfate 75 mg 11/20/16 09:00 11/20/16 08:07 Plavix PO 75 mg DAILY ANG[facility]QUE Administration Diazepam 5 mg 11/19/16 18:00 11/20/16 08:11 Valium PO 5 mg QID ANGELIQUE Administration Dorzolamide HCl 1 drops 11/19/16 21:00 11/20/16 08:06 Trusopt RIGHT EYE 1 drops BID [facility] Administration Gabapentin 300 mg 11/19/16 17:13 11/20/16 06:24 Neurontin PO 300 mg TID PRN Administration Pain Sodium Chloride 1,000 mls @ 50 mls/hr 11/20/16 07:00 11/20/16 06:59 Saline 0.9% IV 50 mls/hr .Q20H [facility] Administration Latanoprost 1 drops 11/19/16 21:00 11/19/16 21:28 Xalatan 0.005% BOTH EYES 1 drops HS ANGELIQUE Administration Morphine Sulfate 4 mg 11/19/16 11:36 Morphine Sulfate (Inj) IV Q5M PRN Chest Pain Nitroglycerin 0.4 mg 11/19/16 11:36 Nitrostat SUBLINGUAL Q5M PRN Chest Pain Pilocarpine HCl 1 drops 11/19/16 21:00 11/20/16 08:06 Isopto Carpine 1% RIGHT EYE 1 drops BID ANGELIQUE Administration Intake and Output 11/19/16 11/20/16 11/20/16 22:59 06:59 14:59 Intake Total 303.000 400 360 Output Total 950 Balance 303.000 -550 360 Intake: IV 400 0.9 400 Intake, IV Titration 63.000 Amount Heparin Sodium,Porcine/ 63.000 D5w Pmx 25,000 unit In Dextrose/Water 1 500ml. bag @ 9.59 UNITS/KG/HR 20 mls/hr IV .Q24H [facility] Rx#: [id number] Oral 240 360 Output: Urine 950 Other: # Voids 1 Weight 105.5 kg 11/20/16 05:41 11/20/16 05:41 EKG Interpretations (text) Sinus bradycardia with nonspecific ST-T wave changes Assessment and Plan Plan: Pericardial chest pain Ischemic cardiomyopathy status post LifeVest Coronary artery disease and medical therapy Hyperkalemia secondary to Aldactone Patient will stop the Aldactone hopefully home tomorrow and follow-up with cardiology he will continue rest of his therapies.
[2016-11-20] MEDS ORDERED: FUROSEMIDE 20 MG TAB PO SCH (09:00)
[2016-11-20] MEDS ORDERED: LISINOPRIL 20 MG TAB PO SCH (09:00)
[2016-11-20] MEDS ORDERED: metFORMIN 500 MG TAB PO SCH (09:00)
[2016-11-20] MEDS ORDERED: ASPIRIN 325 MG TAB PO SCH (09:00)
[2016-11-20] MEDS: MORPHINE SULFATE 4 MG/ML SYRINGE IV PRN ×2 (09:08→14:01)
--- NOTE | 2016-11-20 09:58 | HP ---
HISTORY AND PHYSICAL DATE OF ADMISSION: 11/19/16. ATTENDING PHYSICIAN: Dr. Miquel Omalley. CHIEF COMPLAINT: Chest pain. HISTORY OF PRESENT ILLNESS: This gentleman presented to the emergency room with about three days duration of chest pains. The patient describes the pain as sharp jab, which lasts only seconds and it is on the left precordial area and radiates to his neck. There is no associated symptoms of shortness of breath, though it just catches his breath for a second. The patient says the pain is worse if he moves his shoulder backwards. The patient has no other associated symptoms of shortness of breath or cough. No hemoptysis. The patient symptoms are not indicative of coronary insufficiency. He recently was hospitalized 3 weeks ago with sustained ventricular tachycardia requiring cardioversion. The patient at that time also noted to have evidence suggestive of coronary insufficiency and did have a stent placed. The patient has been wearing a vest prophylactically. The patient was started on heparin with the ER physician, now it has been discontinued. The patient also noted on routine labs to have an elevated potassium of 6.2 with no EKG changes. His BUN 47, creatinine has gone up to 2.54. The patient has been on Aldactone, which is going to be discontinued. The patient was given some insulin and dextrose in the emergency room. The patient also has had some headaches for the past 3 days. He does have significant degenerative arthritic changes of the cervical spine with the recurrent symptoms of occipital neuritis and severe headache. The symptoms have abated today. PAST MEDICAL HISTORY: Is significant for as mentioned above, coronary artery disease with a stent placement 3 weeks ago. He had sustained ventricular tachycardia at the time. He has had a previous myocardial infarction and stented. The patient had a very low ejection fraction at his past visit. The patient has been placed on medical therapy. The patient has been on medical therapy with amiodarone. The patient also has a history of chronic kidney disease stage 3. Chronic neck pain and shoulder pain. History of carcinoma of prostate with previous treatment. History of COPD and diabetes mellitus. PAST SURGICAL HISTORY: Significant for lumbar surgery twice and TURP and bilateral inguinal herniorrhaphy. SOCIAL HISTORY: Patient is , lives with spouse. FAMILY MEDICAL HISTORY: Father of unknown cause. Mother of unknown causes. The patient had a stepfather and stepsister of unknown to him. The patient has 2 daughters, 52 and 49 and a son 46 all in adequate health. PERSONAL HISTORY: Patient used to smoke 2 packs per day for 20 years. He has been a nonsmoker for few years now. Alcohol none. MEDICATIONS: At home include: 1. Amiodarone 400 mg b.i.d. 2. Nitroglycerin sublingual. 3. Xalatan 0.005% 1 drop both eyes at bedtime. 4. Metformin 500 mg daily. 5. Spironolactone 25 mg daily. 6. Pilocarpine 1 drop to the right eye b.i.d. 7. Lisinopril 20 mg daily. 8. Neurontin 300 mg t.i.d. 9. Lasix 20 mg daily. 10.Trusopt 1 drop right eye b.i.d. 11.Plavix 75 mg daily. 12.Coreg 6.25 mg b.i.d. 13.Lipitor 40 mg daily. 14.Aspirin 81 mg daily. SOCIAL HISTORY: The patient , lives with her spouse. REVIEW OF SYSTEMS: Neuro: Has a history of frequent headaches. Recent episode but none for the past couple days. The patient's headaches are related to cervical degenerative disc disease. No double vision, blurred vision. No symptoms of TIA, syncope, seizures. Psych: Some anxiety apprehension. No depression. Cardiac: Denies angina pectoris. Present symptoms of chest pain which is noncardiac. GI: No nausea, vomiting, abdominal pain, diarrhea, constipation, hematochezia, melena. Respiratory: No shortness of breath. Mild chronic cough. No hemoptysis. GI: No nausea, vomiting, abdominal pain, diarrhea, constipation, hematochezia, or melena. : No symptoms of dysuria, hematuria, urgency, or frequency. Extremities denies pain or edema. Constitutional: No fever, chills. Hematological: No anemia or bleeding disorder. Endocrine: No history of diabetes mellitus, hypothyroidism. Skin no rashes. PHYSICAL EXAMINATION: Pleasant gentleman, pleasant, in no distress. Vital signs reveals temperature 97.5, pulse 55, respirations 16, blood pressure 145/66, pulse ox 97% on room air. HEENT: Normocephalic. Neck no JVD. Decreased range of motion. Pupils are reactive. Nostrils clear. Oral cavity is moist. Neck revealed no JVD, carotid bruits or thyromegaly. Chest examination is clear to auscultation and percussion. Mild generalized decreased air flow. Mild tenderness reproducible over the left infraclavicular area. Lung cortes are clear to auscultation with mild generalized decreased air flow. CARDIAC: Normal S1, S2 with no gallops. Systolic murmur 2 in 6 left sternal border. ABDOMEN: Soft. Bowel sounds present. No organomegaly. No abdominal bruits. Extremities reveal no edema. Good pulses both upper lower extremities. Neurologic is awake, alert, oriented times three with well coordinated movements. LABORATORY ASSESSMENT: Was electrolytes which showed potassium 6.2, chloride 109, CO2 content 20, BUN 47, creatinine 2.54. Troponin 0.022. Creatinine 38. CPK is 33. Troponin 0.012. EKG reveals bradycardia. Previous inferior wall myocardial infarction. No other acute changes. ASSESSMENT: 1. Chest pain, myofascial. 2. Coronary artery disease. 3. Hyperkalemia. 4. Acute on chronic renal failure. PLAN: The patient at present is admitted to the hospital. Will be hydrated. Discontinue patient's Aldactone. Repeat electrolytes. The patient's metformin will be discontinued. Patient's lisinopril will be discontinued. Aldactone will be discontinued. The patient condition discussed with the patient. Prognosis guarded. Repeat lytes in the morning. Potential discharge home in the next 24-48 hours. MMODL / IJN: [id number] /
[2016-11-20 16:36] LABS: Glucose,Whole Blood 187 mg/dL (75-99)
[2016-11-20 20:51] LABS: Glucose,Whole Blood 141 mg/dL (75-99)
[2016-11-20] MEDS: traMADol 50 MG TAB PO PRN (21:53)
[2016-11-20] MEDS: LATANOPROST 0.005% OPHTH DROPS 2.5 ML BTL BOTH EYES SCH (21:55)
[2016-11-20] MEDS ORDERED: traMADol 50 MG TAB PO SCH (22:00)
[2016-11-20 22:07] LABS: Glucose,Whole Blood 136 mg/dL (75-99)
--- NOTE | 2016-11-20 23:15 | PN ---
PROGRESS NOTE CHIEF COMPLAINT: Re-evaluation. HISTORY OF PRESENT ILLNESS: This is a 76-year-old gentleman who was admitted to the hospital because of atypical chest pain. The patient has had a history of recent stent placed. The patient, however, was noted to be hyperkalemic, in acute on chronic renal failure. The patient's renal failure was worsened with the use of diuretics. The patient on last admission had evidence of some congestive cardiac failure. The patient does have dilated cardiomyopathy. The patient's Aldactone has been discontinued. Patient's lisinopril has been discontinued due to the hyperkalemia. The patient is actually feeling better. He was placed on Valium yesterday. The patient does not have any spasmodic chest pain. The patient denies any shortness of breath. His potassium is down to 5.5. Creatinine is down to 2.14. The patient continues on cautious hydration. Potentially, if he remains stable, he will be discharged home tomorrow. Patient's condition was discussed with the patient and his spouse. Cardiology is following the patient. REVIEW OF SYSTEMS: NEURO: Patient has recurrent headaches. No dizziness. No double vision, blurred vision. No symptoms of TIA, syncope, seizures. PSYCH: No anxiety or chest pain, angina, palpitations. RESPIRATORY: No shortness of breath, cough, hemoptysis. GI: No nausea, vomiting, abdominal pain, diarrhea. : No symptoms of dysuria, hematuria, urgency. Does have some frequency. EXTREMITIES: No pain, edema. CONSTITUTIONAL: No fever or chills. PHYSICAL EXAMINATION: Pleasant gentleman in no distress. VITAL SIGNS: Temperature 96.8, pulse 52, respirations 16, blood pressure 122/59, pulse ox 97% on room air. HEENT: Normocephalic. NECK: No JVD. CHEST EXAMINATION: Clear to auscultation with generalized decreased air flow. CARDIAC: Normal S1, S2 with no gallop. Systolic murmur 2/6, left sternal border and apex. ABDOMEN: Soft. Bowel sounds present. Extremities reveal no edema. No tenderness. Neurologically awake, alert, oriented with well-coordinated movements. LABORATORY ASSESSMENT: Sodium 143, potassium 5.5, chloride 112, CO2 content 21, BUN 35, creatinine 2.14. Cholesterol 119. TSH 1.69. Sugar was 92. ASSESSMENT: 1. Hyperkalemia, improving. 2. Acute on chronic renal failure, improved. 3. Coronary artery disease, stable. 4. Atypical chest pain, resolved. 5. Chronic neck and head pain. 6. Thrombocytopenia. PLAN: Continue present medical regimen. Patient's condition discussed with the patient. Prognosis guarded. Potential discharge home tomorrow. SHANTA / PHYLLIS: [id number] /
[2016-11-21] MEDS: SODIUM CHLORIDE 0.9% 1,000 ML IV SCH (01:54)
[2016-11-21] MEDS: traMADol 50 MG TAB PO PRN (03:09)
[2016-11-21 06:01] LABS: Mean Platelet Volume 8.1
[2016-11-21 06:12] LABS: Calcium 9.1 mg/dL (8.4-10.2)
[2016-11-21] MEDS ORDERED: SODIUM POLYSTYRENE SULFONATE 15 GM/60 ML BOTTLE PO STA (06:32)
[2016-11-21] MEDS: CARVEDILOL 6.25 MG TAB PO SCH (06:48)
[2016-11-21 07:47] VITALS: RESP 16
[2016-11-21 07:50] LABS: Glucose,Whole Blood 118 mg/dL (75-99)
[2016-11-21] MEDS: ATORVASTATIN 40 MG TAB PO SCH (08:00)
[2016-11-21] MEDS: PILOCARPINE 1% OPHTH DROPS 15 ML BTL RIGHT EYE SCH (08:00)
[2016-11-21] MEDS: AMIODARONE 200 MG TAB PO SCH (08:00)
[2016-11-21] MEDS: CLOPIDOGREL 75 MG TAB PO SCH (08:00)
[2016-11-21] MEDS: ASPIRIN 81 MG PO SCH (08:00)
[2016-11-21] MEDS: DORZOLAMIDE HCL 2% DROPS 10 ML BTL RIGHT EYE SCH (08:02)
--- NOTE | 2016-11-21 08:25 | P.PN ---
Subjective Principal diagnosis: Atypical chest pain and hyperkalemia Patient is feeling better. Renal functions have improved. Potassium is still elevated at 6. Patient received a dose of Kayexalate today. We can recheck the labs later today and we should still be able to discharge him home and keep his outpatient follow-up through our office. Objective - Vital Signs Vital signs: Vital Signs Temp 97.8 F 11/21/16 07:39 Pulse 55 L 11/21/16 08:00 Resp 16 11/21/16 07:39 BP 190/79 11/21/16 07:39 Pulse Ox 96 11/21/16 07:39 Intake & Output 11/20/16 11/21/16 11/21/16 18:59 06:59 18:59 Intake Total 720 550 Output Total 500 1525 Balance 220 -975 Weight 105.5 kg 107.2 kg Intake: Intake, IV Titration 550 Amount Sodium Chloride 0.9% 1, 550 000 ml @ 50 mls/hr IV . Q20H [facility] Rx#:[id number] Oral 720 Output: Urine 500 1525 Other: # Voids 2 - Exam GENERAL: Patient is well developed and well nourished. Patient is nontoxic and well hydrated and is in no acute distress. ENT: Neck is soft and supple. No significant lymphadenopathy noted. Oropharynx clear. Moist mucous membranes. Neck has full range of motion without eliciting any pain. There is no thyroid enlargement and no masses are felt. EYES: Sclerae anicteric. PULMONARY: Unlabored respirations. Good breath sounds bilaterally. No audible rales, rhonchi or wheezing. CARDIOVASCULAR: First and second heart sounds are heard. S2 is normal intensity. No murmur. No gallop. No rubs. No parasternal heave. ABDOMEN: Soft and nontender with normal bowel sounds. No palpable organomegaly noted. There is no palpable pulsatile mass. NEUROLOGIC: Patient is alert and oriented x3. Cranial nerves grossly intact. No focal neurological deficit. MUSCULOSKELETAL: Normal extremities with adequate strength and full range of motion. No lower extremity swelling or edema. No calf tenderness. PSYCHIATRIC: No signs of anxiety. - Labs CBC & Chem 7: 11/21/16 05:21 11/21/16 05:21 Labs: Abnormal Lab Results - Last 24 Hours (Table) 11/20/16 11/20/16 11/20/16 Range/Units 11:49 16:49 20:48 Plt Count (150-450) k/uL Potassium (3.5-5.1) mmol/L Chloride (98-107) mmol/L Carbon Dioxide (22-30) mmol/L BUN (9-20) mg/dL Creatinine (0.66-1.25) mg/dL POC Glucose (mg/dL) 187 H 136 H 141 H (75-99) mg/dL 11/21/16 11/21/16 11/21/16 Range/Units 05:21 05:21 06:22 Plt Count 137 L (150-450) k/uL Potassium 6.0 H (3.5-5.1) mmol/L Chloride 110 H (98-107) mmol/L Carbon Dioxide 21 L (22-30) mmol/L BUN 27 H (9-20) mg/dL Creatinine 1.90 H (0.66-1.25) mg/dL POC Glucose (mg/dL) 118 H (75-99) mg/dL Assessment and Plan Plan: Pericardial chest pain Ischemic cardiomyopathy status post LifeVest Coronary artery disease and medical therapy Hyperkalemia secondary to Aldactone Patient has stopped both is inhibitors and Aldactone. Potassium is still elevated. Patient received Kayexalate today. Patient chest discomfort is atypical and noncardiac. He can be discharged home.
[2016-11-21] MEDS ORDERED: AMIODARONE 200 MG TAB PO SCH (09:00)
[2016-11-21 11:13] VITALS: BP 131/60; PULSE 51; TEMP 97.4
[2016-11-21] MEDS ORDERED: AMIODARONE 200 MG TAB PO STA (11:20)
[2016-11-21 11:29] LABS: Calcium 8.8 mg/dL (8.4-10.2); Potassium 5.3 mmol/L (3.5-5.1)
[2016-11-21 11:54] LABS: Glucose,Whole Blood 93 mg/dL (75-99)
--- NOTE | 2016-11-21 14:27 | CDI ---
In responding to this query, please exercise your independent professional judgment. The [facility] Coding Staff and Clinical Documentation Specialists appreciate your assistance in clarifying documentation, maintaining compliance with coding guidelines, accurately documenting patients condition and capturing severity of illness. The fact that a question is asked does not imply that any particular answer is desired or expected. Communication forms are a method of clarifying documentation and are not made part of the Legal Health Record. Thank you in advance for your clarification. Last Revision, January [address] [facility] [place] [address] Documentation Clarification Form Date: 11/21/2016 2:14:00 PM From: Alyx Allred Admit Date: 11/19/2016 11:36:00 AM Patient Name: Ben Vega Visit Number: [id number] Discharge Date: Dr. Masoud Omalley Chronic renal failure is in your H&P and progress notes. History/Risk Factors: Diabetes mellitus, CKD, CAD, [place], Hypertension, Admission: BUN 47, CR 2.54, GFR: 25 11/21/16: BUN 27, CR 1.90, GFR: 35 Clinical Indicators: complains of chest pain, on presentation labs with elevation of BUN 47, Creatinine had gone up to 2.54. The patient was on Aldactone. Treatment: IVF Monitor Labs In order to capture the severity of condition, please clarify if the condition signifies: CKD Stage 1 (GFR > 90) CKD Stage 2 (GFR 60-89) CKD Stage 3 (GFR 30-59) CKD Stage 4 (GFR 15-29) CKD Stage 5 (GFR <15) ESRD Unable to determine Other condition, please specify Please document in your progress notes and discharge summary in order to capture severity of illness and risk of mortality. Include clinical findings that support your diagnosis. FYI: Press F11 to launch patient chart. ELSIE
== END 2016-11-21 14:43 | disposition home or self-care (01) | DRG 683 ==
LOC: EC 09:02 → 6SEL 11:36
PROVIDERS: ADMIT Internal Medicine; ATTEND Internal Medicine
DX: N17.9 Acute kidney failure, unspecified (principal); I42.0 Dilated cardiomyopathy; E11.22 Type 2 diabetes mellitus with diabetic chronic kidney disease; E87.5 Hyperkalemia; D69.6 Thrombocytopenia, unspecified; H46.9 Unspecified optic neuritis; E86.0 Dehydration; J44.9 Chronic obstructive pulmonary disease, unspecified; N18.3 Chronic kidney disease, stage 3 (moderate); I12.9 Hypertensive chronic kidney disease with stage 1 through stage 4 chronic kidney disease, or unspecified chronic kidney disease; I25.10 Atherosclerotic heart disease of native coronary artery without angina pectoris; M47.812 Spondylosis without myelopathy or radiculopathy, cervical region; T46.4X5A Adverse effect of angiotensin-converting-enzyme inhibitors, initial encounter; T50.0X5A Adverse effect of mineralocorticoids and their antagonists, initial encounter; I25.5 Ischemic cardiomyopathy; E78.5 Hyperlipidemia, unspecified; R07.2 Precordial pain; M50.30 Other cervical disc degeneration, unspecified cervical region; I25.2 Old myocardial infarction; H40.9 Unspecified glaucoma; M54.9 Dorsalgia, unspecified; M10.9 Gout, unspecified; G89.29 Other chronic pain; Z95.5 Presence of coronary angioplasty implant and graft; Z87.891 Personal history of nicotine dependence; Z79.899 Other long term (current) drug therapy; Z85.46 Personal history of malignant neoplasm of prostate; Z79.84 Long term (current) use of oral hypoglycemic drugs; Z79.02 Long term (current) use of antithrombotics/antiplatelets; Z86.711 Personal history of pulmonary embolism; Z98.42 Cataract extraction status, left eye; Z98.41 Cataract extraction status, right eye; Z79.82 Long term (current) use of aspirin; Z88.5 Allergy status to narcotic agent; Z88.8 Allergy status to other drugs, medicaments and biological substances; Z90.79 Acquired absence of other genital organ(s); Z86.79 Personal history of other diseases of the circulatory system; Z87.01 Personal history of pneumonia (recurrent); Z87.19 Personal history of other diseases of the digestive system
CPT/HCPCS: 36415; 71020; 80048; 80053; 80061; 82550; 82553; 83690; 83735; 84443; 84484; 85025; 85049; 85610; 85730; 93005; 96361; 96374; 99291

== ENCOUNTER 2016-12-22 10:34 | Emergency (ER) | payer MEDICARE, BC ==
[2016-12-22] MEDS ORDERED: IPRATROPIUM-ALBUTEROL 3 ML NEB INHALATION STA (10:52)
[2016-12-22] MEDS ORDERED: NITROGLYCERIN SL TABS 0.4 MG TAB SUBLINGUAL STA ×3 (10:52)
[2016-12-22] MEDS ORDERED: ASPIRIN 81 MG PO STA (10:52)
--- NOTE | 2016-12-22 10:58 | ED ---
General Adult HPI - General Chief complaint: Chest Pain Stated complaint: CHEST PAIN, DOMINIQUE Time Seen by Provider: 12/22/16 10:38 Source: patient, family, RN notes reviewed Mode of arrival: wheelchair Limitations: no limitations - History of Present Illness Initial comments: Patient is a pleasant 76-year-old male presenting to the emergency Department with chest discomfort and dyspnea. Symptoms started 3 days ago and have progressively worsened since that time. Patient did have sinus congestion and drainage however states that has improved. Patient is concerned he may have an infection in his lungs. Patient has pressure in his chest that worsens with worsening of breathing. Patient only has rare cough. Patient does feel short of breath. No fevers. Dyspnea worsens with lying down. Patient does have a life breast on and is pending defibrillator in the end of the month secondary to history poor heart function. - Related Data Home Medications Medication Instructions Recorded Confirmed Furosemide [Lasix] 20 mg PO DAILY 10/18/16 11/19/16 Gabapentin [Neurontin] 300 mg PO TID PRN 10/18/16 11/19/16 Latanoprost [Xalatan 0.005%] 1 drop BOTH EYES HS 10/18/16 11/19/16 Pilocarpine 1% Ophth Soln [Isopto 1 drops RIGHT EYE BID 10/18/16 11/19/16 Carpine 1%] metFORMIN HCL ER [Glucophage Xr] 500 mg PO DAILY 10/18/16 11/19/16 Dorzolamide 2% [Trusopt 2%] 1 drops RIGHT EYE BID 10/19/16 11/19/16 Previous Rx's Medication Instructions Recorded Aspirin EC [Ecotrin Low Dose] 81 mg PO DAILY #100 tablet. 06/24/14 Atorvastatin [Lipitor] 40 mg PO DAILY #30 tab 10/22/16 Clopidogrel [Plavix] 75 mg PO DAILY #30 tab 10/22/16 Nitroglycerin Sl Tabs [Nitrostat] 0.4 mg SUBLINGUAL Q5M PRN #25 tab 10/22/16 Carvedilol [Coreg] 6.25 mg PO BID-W/MEALS tab 10/23/16 Amiodarone [Cordarone] 400 mg PO DAILY #30 tab 11/21/16 Nitroglycerin Sl Tabs [Nitrostat] 0.4 mg SUBLINGUAL Q5M PRN tab 11/21/16 traMADol HCl [Ultram] 50 mg PO QID PRN tab 11/21/16 Allergies Allergy/AdvReac Type Severity Reaction Status Date / Time atorvastatin calcium Allergy Unknown Verified 12/22/16 12:21 [From Lipitor] hydrocodone bitartrate AdvReac Confusion Verified 12/22/16 12:21 [From Vicodin] Review of Systems ROS Statement: Those systems with pertinent positive or pertinent negative responses have been documented in the HPI. ROS Other: All systems not noted in ROS Statement are negative. Constitutional: Denies: fever Eyes: Denies: eye pain ENT: Denies: ear pain Respiratory: Reports: dyspnea Cardiovascular: Reports: chest pain Gastrointestinal: Denies: abdominal pain Genitourinary: Denies: dysuria Musculoskeletal: Denies: back pain Skin: Denies: rash Neurological: Denies: weakness Psychiatric: Denies: depression Past Medical History Past Medical History: Coronary Artery Disease (CAD), Cancer, Chest Pain / Angina , Diabetes Mellitus, Eye Disorder, Hyperlipidemia, Hypertension, Myocardial Infarction (MD), Osteoarthritis (OA), Pneumonia, Prostate Disorder, Pulmonary Embolus (PE), Renal Disease Additional Past Medical History / Comment(s): NIDDM type II, chronic kidney disease stage III, R eye glaucoma, pulmonary emboli L lung, prostrate cancer with surgery, chronic haider/cervical and shoulder pain, back pain, diverticular dx , past gout. Last Myocardial Infarction Date:: 10/18/16 History of Any Multi-Drug Resistant Organisms: None Reported Past Surgical History: Back Surgery, Heart Catheterization, Heart Catheterization With Stent, Hernia Repair, Prostate Surgery Additional Past Surgical History / Comment(s): Pt admitted to [facility] on 10/18/16 with sustained VTach/syncopy was cardioverted, subendo MD/EF was 25% at that time. Currently wearing life vest. Other hx: lumbar surgery twice, cervical epidural injections, bilateral inguinal hernia repairs, TURP, colonoscopy, hemorrhoidectomy, bilateral cataracts removed Past Anesthesia/Blood Transfusion Reactions: No Reported Reaction Date of Last Stent Placement:: 10/18/16 Past Psychological History: No Psychological Hx Reported Smoking Status: Former smoker Past Alcohol Use History: None Reported Past Drug Use History: None Reported - Past Family History Mother Family Medical History: Unable to Obtain Additional Family Medical History / Comment(s): Mother of unknown cause. Father Family Medical History: Unable to Obtain Additional Family Medical History / Comment(s): Father of unknown cause. General Exam Limitations: no limitations General appearance: alert, in no apparent distress Head exam: Present: atraumatic Eye exam: Present: normal appearance, PERRL ENT exam: Present: normal oropharynx Neck exam: Present: normal inspection Respiratory exam: Present: rhonchi Cardiovascular Exam: Present: regular rate, normal rhythm Expanded Peripheral pulses: 2+: Radial (R), Radial (L), Dorsalis Pedis (R), Dorsalis Pedis (L) GI/Abdominal exam: Present: soft. Absent: tenderness Extremities exam: Present: normal inspection. Absent: pedal edema, calf tenderness Neurological exam: Present: alert Psychiatric exam: Present: normal affect, normal mood Skin exam: Present: normal color Course Vital Signs 12/22/16 12/22/16 12/22/16 10:43 11:09 11:13 Temperature 96.9 F L Pulse Rate 55 L 56 L 55 L Respiratory 16 20 18 Rate Blood Pressure 183/84 167/81 155/74 O2 Sat by Pulse 98 97 97 Oximetry 12/22/16 12/22/16 12/22/16 11:18 11:38 11:45 Temperature Pulse Rate 58 L 55 L 57 L Respiratory 18 16 Rate Blood Pressure 132/61 138/75 O2 Sat by Pulse 96 97 Oximetry 12/22/16 11:50 Temperature Pulse Rate 53 L Respiratory Rate Blood Pressure O2 Sat by Pulse Oximetry EKG Findings - EKG Comments: EKG Findings:: Sinus bradycardia 55. TX 160. QRS 106. QT 514. QTC 491. Normal axis. Normal QRS. Nonspecific ST-T. Medical Decision Making - Medical Decision Making Patient reevaluated and resting comfortably in bed. Case discussed in detail with Dr. Omalley who is familiar with this patient. He does recommend discharge with Lasix. He will follow-up. Patient and family were updated. - Lab Data Result diagrams: 12/22/16 10:43 12/22/16 10:43 Lab Results 12/22/16 12/22/16 12/22/16 Range/Units 10:43 10:43 10:43 WBC 8.3 (3.8-10.6) k/uL RBC 4.24 L (4.30-5.90) m/uL Hgb 13.1 (13.0-17.5) gm/dL Hct 40.6 (39.0-53.0) % MCV 95.7 (80.0-100.0) fL MCH 31.0 (25.0-35.0) pg MCHC 32.4 (31.0-37.0) g/dL RDW 15.2 (11.5-15.5) % Plt Count 170 (150-450) k/uL Neutrophils % 82 % Lymphocytes % 8 % Monocytes % 6 % Eosinophils % 2 % Basophils % 0 % Neutrophils # 6.8 (1.3-7.7) k/uL Lymphocytes # 0.7 L (1.0-4.8) k/uL Monocytes # 0.5 (0-1.0) k/uL Eosinophils # 0.2 (0-0.7) k/uL Basophils # 0.0 (0-0.2) k/uL Hypochromasia Slight PT (9.0-12.0) sec INR (<1.2) APTT (22.0-30.0) sec Sodium 143 (137-145) mmol/L Potassium 4.3 (3.5-5.1) mmol/L Chloride 105 (98-107) mmol/L Carbon Dioxide 27 (22-30) mmol/L Anion Gap 11 mmol/L BUN 22 H (9-20) mg/dL Creatinine 1.63 H (0.66-1.25) mg/dL Est GFR (MDRD) Af Amer 50 (>60 ml/min/1.73 sqM) Est GFR (MDRD) Non-Af 42 (>60 ml/min/1.73 sqM) Glucose 114 H (74-99) mg/dL Calcium 9.2 (8.4-10.2) mg/dL Magnesium 1.9 (1.6-2.3) mg/dL Total Bilirubin 0.9 (0.2-1.3) mg/dL AST 20 (17-59) U/L ALT 35 (21-72) U/L Alkaline Phosphatase 105 (38-126) U/L Total Creatine Kinase 23 L (55-170) U/L CK-MB (CK-2) 0.9 (0.0-2.4) ng/mL CK-MB (CK-2) Rel Index 3.9 Troponin I <0.012 (0.000-0.034) ng/mL NT-Pro-B Natriuret Pep pg/mL Total Protein 7.2 (6.3-8.2) g/dL Albumin 3.7 (3.5-5.0) g/dL 12/22/16 12/22/16 Range/Units 10:43 10:43 WBC (3.8-10.6) k/uL RBC (4.30-5.90) m/uL Hgb (13.0-17.5) gm/dL Hct (39.0-53.0) % MCV (80.0-100.0) fL MCH (25.0-35.0) pg MCHC (31.0-37.0) g/dL RDW (11.5-15.5) % Plt Count (150-450) k/uL Neutrophils % % Lymphocytes % % Monocytes % % Eosinophils % % Basophils % % Neutrophils # (1.3-7.7) k/uL Lymphocytes # (1.0-4.8) k/uL Monocytes # (0-1.0) k/uL Eosinophils # (0-0.7) k/uL Basophils # (0-0.2) k/uL Hypochromasia PT 11.0 (9.0-12.0) sec INR 1.1 (<1.2) APTT 24.3 (22.0-30.0) sec Sodium (137-145) mmol/L Potassium (3.5-5.1) mmol/L Chloride (98-107) mmol/L Carbon Dioxide (22-30) mmol/L Anion Gap mmol/L BUN (9-20) mg/dL Creatinine (0.66-1.25) mg/dL Est GFR (MDRD) Af Amer (>60 ml/min/1.73 sqM) Est GFR (MDRD) Non-Af (>60 ml/min/1.73 sqM) Glucose (74-99) mg/dL Calcium (8.4-10.2) mg/dL Magnesium (1.6-2.3) mg/dL Total Bilirubin (0.2-1.3) mg/dL AST (17-59) U/L ALT (21-72) U/L Alkaline Phosphatase (38-126) U/L Total Creatine Kinase (55-170) U/L CK-MB (CK-2) (0.0-2.4) ng/mL CK-MB (CK-2) Rel Index Troponin I (0.000-0.034) ng/mL NT-Pro-B Natriuret Pep 2380 pg/mL Total Protein (6.3-8.2) g/dL Albumin (3.5-5.0) g/dL - Radiology Data Radiology results: image reviewed (Chest x-ray shows some venous congestion without overt edema. Basilar atelectasis versus early pneumonia.) Disposition Clinical Impression: CHF (congestive heart failure) Disposition: HOME SELF-CARE Condition: Stable Instructions: Chest Pain (ED), Heart Failure (ED) Additional Instructions: Please follow-up with your dinkey operator and Dr. Omalley in the next day for recheck. Return for difficulty in breathing, fevers, weakness, chest pain, fatigue, worsening symptoms or any other concerns. Please your Lasix dose for the next 3 days, new dose is 40 mg daily. Referrals: Masoud Omalley MD [Primary Care Provider] - 1-2 days Time of Disposition: 12:24
[2016-12-22 11:12] LABS: Basophils % (A) 0 %; CHCM 32.7; Eosinophils # (A) 0.2 k/uL (0-0.7); Eosinophils % (A) 2 %; HCT 40.6 % (39.0-53.0); HDW 3.26; HGB 13.1 gm/dL (13.0-17.5); Hypochromasia Slight; Luc # (Auto) 0.14; Luc % (Auto) 2; Lymphocytes # (A) 0.7 k/uL (1.0-4.8); Lymphocytes % (A) 8 %; MCHC 32.4 g/dL (31.0-37.0); MCV 95.7 fL (80.0-100.0); Mean Platelet Volume 7.7; Monocytes # (A) 0.5 k/uL (0-1.0); Monocytes % (A) 6 %; Neutrophils # (A) 6.8 k/uL (1.3-7.7); Neutrophils % (A) 82 %; RBC 4.24 m/uL (4.30-5.90); RDW 15.2 % (11.5-15.5); WBC 8.3 k/uL (3.8-10.6); WBC (Perox) 8.26
[2016-12-22 11:13] LABS: INR 1.1 (<1.2); Partial Thromboplastin Time 24.3 sec (22.0-30.0)
[2016-12-22 11:16] LABS: Calcium 9.2 mg/dL (8.4-10.2); Magnesium 1.9 mg/dL (1.6-2.3); Potassium 4.3 mmol/L (3.5-5.1); Total Bilirubin 0.9 mg/dL (0.2-1.3); Total Protein 7.2 g/dL (6.3-8.2)
[2016-12-22 11:25] LABS: Creatine Kinase 23 U/L (55-170)
[2016-12-22 11:38] LABS: Creatine Kinase MB 0.9 ng/mL (0.0-2.4); Troponin I <0.012 ng/mL (0.000-0.034)
--- NOTE | 2016-12-22 11:39 | XR ---
EXAMINATION TYPE: XR chest 2V DATE OF EXAM: 12/22/2016 HISTORY: Chest Pain. REFERENCE: Previous study dated 11/19/2016. FINDINGS: The heart is enlarged. There is vascular congestion without edema. There is increased opaci ty at both lung bases. This may represent atelectasis or early pneumonia. Both CP angles are blunted and I could not exclude small effusions. IMPRESSION: 1. CARDIOMEGALY. 2. BIBASILAR AIRSPACE DISEASE. 3. I CANNOT EXCLUDE SMALL, BILATERAL EFFUSIONS.
[2016-12-22] MEDS ORDERED: FUROSEMIDE 10 MG/ML 4 ML VIAL IV STA (12:20)
[2016-12-22 12:44] VITALS: BP 157/76; PULSE 50; RESP 18; TEMP 97.9
== END 2016-12-22 12:52 | disposition home or self-care (01) ==
LOC: EC 10:34
DX: I13.0 Hypertensive heart and chronic kidney disease with heart failure and stage 1 through stage 4 chronic kidney disease, or unspecified chronic kidney disease (principal); I50.9 Heart failure, unspecified; E11.22 Type 2 diabetes mellitus with diabetic chronic kidney disease; N18.3 Chronic kidney disease, stage 3 (moderate); I25.10 Atherosclerotic heart disease of native coronary artery without angina pectoris; I25.2 Old myocardial infarction; Z85.46 Personal history of malignant neoplasm of prostate; Z87.891 Personal history of nicotine dependence; Z88.8 Allergy status to other drugs, medicaments and biological substances; Z88.5 Allergy status to narcotic agent; Z79.84 Long term (current) use of oral hypoglycemic drugs; Z79.899 Other long term (current) drug therapy
CPT/HCPCS: 99285 ×2; 96374 ×2; 36415; 94640; 93005; 83880; 80053; 82550; 82553; 83735; 84484; 85025; 85610; 85730; 71020; J1940

== ENCOUNTER → 2016-12-30 | Outpatient (CLI) | payer MEDICARE, BC ==
[2016-12-30 10:42] LABS: CH 30.4; CHCM 31.6; HCT 40.4 % (39.0-53.0); HDW 3.34; HGB 12.5 gm/dL (13.0-17.5); Hypochromasia Moderate; MCV 96.8 fL (80.0-100.0); Mean Platelet Volume 7.3; RBC 4.18 m/uL (4.30-5.90); RDW 14.6 % (11.5-15.5); WBC 6.4 k/uL (3.8-10.6)
[2016-12-30 10:50] LABS: Potassium 5.3 mmol/L (3.5-5.1)
== END | disposition home or self-care (01) ==
LOC: LABWHC1 09:42
PROVIDERS: ATTEND Internal Medicine Cardiovascular Disease
DX: Z01.818 Encounter for other preprocedural examination (principal); I25.5 Ischemic cardiomyopathy
CPT/HCPCS: 36415; 80051; 82565; 84520; 85027

== ENCOUNTER 2017-01-21 15:50 | Inpatient (IN) | payer MEDICARE, BC ==
[2017-01-21] MEDS ORDERED: NITROGLYCERIN SL TABS 0.4 MG TAB SUBLINGUAL STA (16:05)
--- NOTE | 2017-01-21 16:21 | ED ---
General Adult HPI - General Chief complaint: Shortness of Breath Stated complaint: Sob Time Seen by Provider: 01/21/17 15:56 Source: patient Mode of arrival: wheelchair Limitations: no limitations - History of Present Illness Initial comments: This is a 76-year-old male with a history of ischemic cardiomyopathy, V. tach, AICD placement who presents emergency department for gradually worsening shortness of breath. He states that it's been worse over the last 12-15 hours. He states it woke him from sleep around midnight today. He states that he went and saw his house mover, Dr. Omalley, who increased his Lasix from 20 mg a day to 40 mg. He took 40 mg of Lasix just prior to coming emergency department however he was so significantly short of breath that he decided to come to the ER. He states that he does not have any chest pain. The shortest breath seems to be worse with exertion. Does not seem to be positional related however he does admit to new lower extremity edema. He denies any weight gain. No fever or chills. No cough. No other complaints. - Related Data Home Medications Medication Instructions Recorded Confirmed Furosemide [Lasix] 20 mg PO DAILY 10/18/16 01/21/17 Gabapentin [Neurontin] 300 mg PO TID PRN 10/18/16 01/21/17 Latanoprost [Xalatan 0.005%] 1 drop BOTH EYES HS 10/18/16 01/21/17 [place]ine 1% Ophth Soln [Isopto 1 drops RIGHT EYE DAILY 10/18/16 01/21/17 Carpine 1%] metFORMIN HCL ER [Glucophage Xr] 500 mg PO AC-SUPPER 10/18/16 01/21/17 Amiodarone [Cordarone] 200 mg PO BID 12/22/16 01/21/17 Dorzolamide-Timolol 2%/0.5% 1 drop RIGHT EYE BID 12/22/16 01/21/17 [dorzolamide-Timolol 2%/0.5%] Atorvastatin [Lipitor] 40 mg PO AC-SUPPER 01/07/17 01/21/17 Brimonidine Tartrate [Alphagan P 1 drops RIGHT EYE DAILY 01/07/17 01/21/17 0.15% Ophth Soln] Calcium Polycarbophil [Fibercon] 625 mg PO BID 01/07/17 01/21/17 Carvedilol [Coreg] 6.25 mg PO AC-SUPPER 01/07/17 01/21/17 Naproxen 250 mg PO DAILY PRN 01/07/17 01/21/17 Previous Rx's Medication Instructions Recorded Aspirin EC [Ecotrin Low Dose] 81 mg PO DAILY #100 tablet. 06/24/14 Clopidogrel [Plavix] 75 mg PO DAILY #30 tab 10/22/16 Nitroglycerin Sl Tabs [Nitrostat] 0.4 mg SUBLINGUAL Q5M PRN tab 11/21/16 traMADol HCl [Ultram] 50 mg PO QID PRN tab 11/21/16 Allergies Allergy/AdvReac Type Severity Reaction Status Date / Time hydrocodone bitartrate AdvReac Confusion Verified 01/21/17 16:29 [From Vicodin] Review of Systems ROS Statement: Those systems with pertinent positive or pertinent negative responses have been documented in the HPI. ROS Other: All systems not noted in ROS Statement are negative. Past Medical History Past Medical History: Coronary Artery Disease (CAD), Cancer, Chest Pain / Angina , Diabetes Mellitus, Eye Disorder, Hyperlipidemia, Hypertension, Myocardial Infarction (MA), Osteoarthritis (OA), Pneumonia, Prostate Disorder, Pulmonary Embolus (PE), Renal Disease Additional Past Medical History / Comment(s): See Dr Chavez's H&P. NIDDM type II, chronic kidney disease stage III, R eye glaucoma, pulmonary emboli L lung, prostrate cancer with surgery, chronic haider/cervical and shoulder pain, back pain, diverticular dx, past gout, currently wearing life vest Last Myocardial Infarction Date:: 10/18/16 History of Any Multi-Drug Resistant Organisms: None Reported Past Surgical History: Back Surgery, Heart Catheterization, Heart Catheterization With Stent, Hernia Repair, Prostate Surgery Additional Past Surgical History / Comment(s): 10/18/16 was cardioverted currently wears life vest. hx: lumbar surgery twice, cervical epidural injections, bilateral inguinal hernia repairs, TURP, colonoscopy, hemorrhoidectomy, bilateral cataracts removed Past Anesthesia/Blood Transfusion Reactions: No Reported Reaction Date of Last Stent Placement:: 10/18/16 Past Psychological History: No Psychological Hx Reported Smoking Status: Former smoker Past Alcohol Use History: None Reported Past Drug Use History: None Reported - Past Family History Mother Family Medical History: Unable to Obtain Additional Family Medical History / Comment(s): Mother of unknown cause. Father Family Medical History: Unable to Obtain Additional Family Medical History / Comment(s): Father of unknown cause. General Exam - General Exam Comments Initial Comments: Constitutional: Awake alert appears tachypneic and mildly uncomfortable Head: Normocephalic atraumatic Eyes: no conjunctival injection No scleral icterus EOMI Neck: No JVD Supple Heart: Regular rate rhythm normal S1-S2 no murmurs Lungs: Decreased breath sounds at bilateral bases with worse on the left No wheezing No rales Abdomen: Soft nondistended nontender Extremities: Mild edema of the bilateral lower extremities DP pulses intact Radial pulses intact Neuro: A&Ox3 No focal neurologic deficits Psych: Appropriate mood and affect Limitations: no limitations Course Vital Signs 01/21/17 01/21/17 01/21/17 15:52 16:28 17:37 Temperature 97.4 F L Pulse Rate 65 62 61 Respiratory 22 18 18 Rate Blood Pressure 194/88 190/95 199/97 O2 Sat by Pulse 98 100 96 Oximetry EKG Findings - EKG Comments: EKG Findings:: EKG showing normal sinus rhythm with a rate of 64. There is some mild ST segment depression and T-wave inversion in V5 and V6. QTC is 499 and prolonged. Other intervals appear normal. No ectopy. Appears similar to previous EKG. Medical Decision Making - Medical Decision Making This is a 76-year-old male who presents emergency department for worsening shortness of breath and leg swelling. The patient was very tachypnea, arrival to the ER. He improved after placing the patient on oxygen. His blood pressure has remained elevated despite nitroglycerin tabs and paced. His BNP is elevated. Chest x-ray did not show any remarkable on her edema. D-dimer is elevated and VQ scan was ordered. I spoke with Dr. Omalley who is his primary doctor who believes that his symptoms are related to CHF. He recommends 40 mg Lasix twice a day. The patient's artery taken this orally today and has been urinating in the emergency department and thus I started the dose for tomorrow. He is been having issues with his shortness of breath and swelling for quite some time and I feel that he requires inpatient monitoring and further treatment otherwise he may decompensate at home. - Lab Data Result diagrams: 01/21/17 16:23 01/21/17 16:23 Lab Results 01/21/17 01/21/17 01/21/17 Range/Units 16:23 16:23 16:23 WBC 7.1 (3.8-10.6) k/uL RBC 4.67 (4.30-5.90) m/uL Hgb 14.1 (13.0-17.5) gm/dL Hct 43.5 (39.0-53.0) % MCV 93.2 (80.0-100.0) fL MCH 30.2 (25.0-35.0) pg MCHC 32.4 (31.0-37.0) g/dL RDW 16.3 H (11.5-15.5) % Plt Count 169 (150-450) k/uL Neutrophils % 71 % Lymphocytes % 14 % Monocytes % 8 % Eosinophils % 4 % Basophils % 1 % Neutrophils # 5.0 (1.3-7.7) k/uL Lymphocytes # 1.0 (1.0-4.8) k/uL Monocytes # 0.6 (0-1.0) k/uL Eosinophils # 0.3 (0-0.7) k/uL Basophils # 0.1 (0-0.2) k/uL Anisocytosis Slight PT (9.0-12.0) sec INR (<1.2) APTT (22.0-30.0) sec D-Dimer (<0.60) mg/L FEU VBG pH (7.31-7.41) VBG pCO2 (37-51) mmHg VBG HCO3 (24-28) mmol/L Sodium 142 (137-145) mmol/L Potassium 4.5 (3.5-5.1) mmol/L Chloride 105 (98-107) mmol/L Carbon Dioxide 27 (22-30) mmol/L Anion Gap 10 mmol/L BUN 28 H (9-20) mg/dL Creatinine 1.83 H (0.66-1.25) mg/dL Est GFR (MDRD) Af Amer 44 (>60 ml/min/1.73 sqM) Est GFR (MDRD) Non-Af 36 (>60 ml/min/1.73 sqM) Glucose 92 (74-99) mg/dL Calcium 9.7 (8.4-10.2) mg/dL Magnesium 2.0 (1.6-2.3) mg/dL Total Bilirubin 0.6 (0.2-1.3) mg/dL AST 30 (17-59) U/L ALT 29 (21-72) U/L Alkaline Phosphatase 120 (38-126) U/L Troponin I (0.000-0.034) ng/mL NT-Pro-B Natriuret Pep 1680 pg/mL Total Protein 7.9 (6.3-8.2) g/dL Albumin 4.1 (3.5-5.0) g/dL 01/21/17 01/21/17 01/21/17 Range/Units 16:23 16:23 16:49 WBC (3.8-10.6) k/uL RBC (4.30-5.90) m/uL Hgb (13.0-17.5) gm/dL Hct (39.0-53.0) % MCV (80.0-100.0) fL MCH (25.0-35.0) pg MCHC (31.0-37.0) g/dL RDW (11.5-15.5) % Plt Count (150-450) k/uL Neutrophils % % Lymphocytes % % Monocytes % % Eosinophils % % Basophils % % Neutrophils # (1.3-7.7) k/uL Lymphocytes # (1.0-4.8) k/uL Monocytes # (0-1.0) k/uL Eosinophils # (0-0.7) k/uL Basophils # (0-0.2) k/uL Anisocytosis PT 10.6 (9.0-12.0) sec INR 1.0 (<1.2) APTT 23.2 (22.0-30.0) sec D-Dimer 2.15 H (<0.60) mg/L FEU VBG pH 7.42 H (7.31-7.41) VBG pCO2 44 (37-51) mmHg VBG HCO3 28 (24-28) mmol/L Sodium (137-145) mmol/L Potassium (3.5-5.1) mmol/L Chloride (98-107) mmol/L Carbon Dioxide (22-30) mmol/L Anion Gap mmol/L BUN (9-20) mg/dL Creatinine (0.66-1.25) mg/dL Est GFR (MDRD) Af Amer (>60 ml/min/1.73 sqM) Est GFR (MDRD) Non-Af (>60 ml/min/1.73 sqM) Glucose (74-99) mg/dL Calcium (8.4-10.2) mg/dL Magnesium (1.6-2.3) mg/dL Total Bilirubin (0.2-1.3) mg/dL AST (17-59) U/L ALT (21-72) U/L Alkaline Phosphatase (38-126) U/L Troponin I 0.013 (0.000-0.034) ng/mL NT-Pro-B Natriuret Pep pg/mL Total Protein (6.3-8.2) g/dL Albumin (3.5-5.0) g/dL Disposition Clinical Impression: CHF exacerbation Disposition: ADMITTED IP TO THIS [facility] Condition: Stable
[2017-01-21 16:37] LABS: Anisocytosis Slight; Basophils # (A) 0.1 k/uL (0-0.2); Basophils % (A) 1 %; CHCM 32.4; Eosinophils # (A) 0.3 k/uL (0-0.7); Eosinophils % (A) 4 %; HCT 43.5 % (39.0-53.0); HDW 3.12; HGB 14.1 gm/dL (13.0-17.5); Luc # (Auto) 0.12; Luc % (Auto) 2; Lymphocytes % (A) 14 %; MCH 30.2 pg (25.0-35.0); MCHC 32.4 g/dL (31.0-37.0); MCV 93.2 fL (80.0-100.0); Mean Platelet Volume 8.5; Monocytes # (A) 0.6 k/uL (0-1.0); Monocytes % (A) 8 %; Neutrophils % (A) 71 %; RBC 4.67 m/uL (4.30-5.90); RDW 16.3 % (11.5-15.5); WBC 7.1 k/uL (3.8-10.6); WBC (Perox) 7.01
--- NOTE | 2017-01-21 16:46 | XR ---
EXAMINATION TYPE: XR chest 1V portable DATE OF EXAM: 01/21/2017 COMPARISON: 01/11/2017 HISTORY: Short of breath TECHNIQUE: Single frontal view of the chest is obtained. FINDINGS: There is no heart failure nor confluent pneumonic infiltrate. Costophrenic angles are radha r. Heart appears enlarged. There is left axillary pacemaker with the lead tips in the right ventricle . There are chest leads. IMPRESSION: No active cardiopulmonary disease. Cardiomegaly. No heart failure. There is clearing of mild pulmonary congestion compared to old exam.
[2017-01-21 16:57] LABS: VBG PH 7.42 (7.31-7.41)
[2017-01-21 17:04] LABS: Calcium 9.7 mg/dL (8.4-10.2); Potassium 4.5 mmol/L (3.5-5.1); Total Bilirubin 0.6 mg/dL (0.2-1.3); Total Protein 7.9 g/dL (6.3-8.2)
[2017-01-21] MEDS ORDERED: NITROGLYCERIN OINT 1 INCH/GM PACKET TOPICAL STA (17:16)
[2017-01-21 17:32] LABS: Partial Thromboplastin Time 23.2 sec (22.0-30.0); Prothrombin Time 10.6 sec (9.0-12.0)
[2017-01-21] MEDS ORDERED: CARVEDILOL 6.25 MG TAB PO STA (17:40)
--- NOTE | 2017-01-21 17:42 | CT ---
EXAMINATION TYPE: CT chest wo con DATE OF EXAM: 01/21/2017 COMPARISON: 06/21/2014 HISTORY: SOB, Recent pacemaker insertion. CT DLP: 781 mGycm. Automated Exposure Control for Dose Reduction was Utilized. TECHNIQUE: CT scan of the thorax is performed without IV contrast. FINDINGS: There is pulmonary emphysema at the lung apices. Thoracic aorta is atheromatous. There is coronary ar boy calcification. Heart is enlarged. There is no pericardial effusion. There is no sign of aortic a neurysm. There is no pleural effusion. There is some coarsening of interstitial bony density in the m id and lower lung cortes. There are calcified gallstones. There are spondylotic changes in the lower thoracic spine. I see no focal bone destruction. There is no compression fracture. IMPRESSION: Pulmonary emphysema. Extensive pulmonary fibrotic changes. There is clearing of some infi ltrate and pleural fluid at the left lung base compared to old exam. Extensive atherosclerotic vascular disease. Cardiomegaly. 5 mm stable right lower lobe nodule. No silvino dence of a pulmonary mass. Cholelithiasis.
[2017-01-21] MEDS ORDERED: NALOXONE 0.4 MG/ML 1 ML VIAL IV PRN (18:13)
[2017-01-21] MEDS ORDERED: NAPROXEN 250 MG TAB PO PRN (18:16)
[2017-01-21] MEDS ORDERED: NITROGLYCERIN SL TABS 0.4 MG TAB SUBLINGUAL PRN (18:16)
--- NOTE | 2017-01-21 19:42 | NM ---
EXAMINATION TYPE: NM pul vent and perfuse DATE OF EXAM: 01/21/2017 COMPARISON: NONE HISTORY: TECHNIQUE: Utilizing inhalation of 73.2 mCi Tc 99m DTPA aerosol and intravenous injection of 5.1 mCi of Tc 99m MAA, ventilation and perfusion images are acquired post injection in multiple projections. FINDINGS: There is fairly uniform ventilation and perfusion. I see no segmental or subsegmental perfusion defec t. The remainder of exam is unremarkable. IMPRESSION: Scan is within normal limits. There is a very low probability of pulmonary embolism.
[2017-01-21] MEDS: CALCIUM POLYCARBOPHIL 625 MG TAB PO SCH (20:35)
[2017-01-21] MEDS: AMIODARONE 200 MG TAB PO SCH (20:35)
[2017-01-21] MEDS: metFORMIN 500 MG TAB PO SCH (20:35)
[2017-01-21] MEDS: LATANOPROST 0.005% OPHTH DROPS 2.5 ML BTL BOTH EYES SCH (20:36)
[2017-01-21] MEDS: DORZOLAMIDE-TIMOLOL 2-0.5% DROPS 10 ML BTL RIGHT EYE SCH (20:36)
[2017-01-21] MEDS ORDERED: LOSARTAN 50 MG TAB PO SCH (21:15)
[2017-01-21] MEDS: GABAPENTIN 300 MG CAP PO PRN (21:30)
[2017-01-21] MEDS ORDERED: FUROSEMIDE 10 MG/ML 2 ML VIAL IV SCH (21:30)
[2017-01-21] MEDS: LOSARTAN 50 MG TAB PO SCH (21:40)
[2017-01-21 22:33] LABS: Glucose,Whole Blood 100 mg/dL (75-99)
[2017-01-21] MEDS: HEPARIN SODIUM,PORCINE 5,000 UNIT/ML 1 ML VIAL SQ SCH (23:03)
--- NOTE | 2017-01-22 02:23 | HP ---
HISTORY AND PHYSICAL ATTENDING PHYSICIAN: Dr. Miquel Omalley. CHIEF COMPLAINT: Shortness of breath. HISTORY OF PRESENT ILLNESS: This 76-year-old gentleman with known history of ischemic cardiomyopathy and recent AICD placement told me this morning that was last night, he was significantly short of breath, had a hard time lying down. The patient had called about 9:00 and he had already taken his Lasix 20 mg and I told him to take an extra 20 mg of Lasix. At this point, the patient was subsequently seen at about 11:30 in the morning. The patient by that time had urinated significantly. He was feeling better. His pulse ox was 96% on room air and his heart rate was in the 80 range and the patient's blood pressure was 140/80. The patient was noted to have 1+ JVD and noted to have edema in the lower extremity which was 1+. The patient recommended to increase his Lasix to 40 mg b.i.d. from the 20 mg daily and the patient was recommended to contact me again if his breathing got worse. The patient did call again, saying that his breathing had gotten somewhat worse. He subsequently again took the 40 mg Lasix prior to coming to the hospital. He has been urinating significantly. The patient was evaluated by ER physician. Chest x-ray was in ER was done, a CT scan of the chest done for unclear reason to me, which was probably not essential. The patient did have a V/Q scan done. The patient's D-dimer was elevated. BNP is elevated. The patient has clinical symptoms of CHF, mostly left ventricular. The ER did not give the patient any Lasix because he was voiding significantly from the oral Lasix he had taken. The patient had denied any chest pain, cough, congestion. He is at this time admitted to the hospital. I did see him again. He was lying down fairly flat, getting his pulmonary perfusion studies done. He denied any significant symptoms of orthopnea at that time. He has oxygen on. PAST MEDICAL HISTORY: Significant for recent ventricular tachycardia. Subsequent to that, the patient has placement of a defibrillator. Also, the patient has coronary artery disease. He recently had a PTCA done. The patient has ischemic cardiomyopathy, also has a history of chronic kidney disease stage 3, history of COPD, history of chronic headaches, history of carcinoma of the prostate. No history of any liver disease, but no history of any thyroid condition, ulcers, TB, hepatitis. No history of any rheumatic fever, myocardial infarction or CVA. PAST SURGICAL HISTORY: Significant for prostate surgery, AICD placement recently, lumbar surgery and bilateral inguinal herniorrhaphy. SOCIAL HISTORY: Patient is , lives with his spouse. PERSONAL HISTORY: Patient is an ex-smoker. He used to smoke 2 packs per day for 20 years. He has not smoked for the past quite a few years now. Alcohol: None. FAMILY MEDICAL HISTORY: Father of unknown cause. Mother of unknown cause. The patient had a stepfather and stepsister unknown to him. The patient has 2 daughters, 52 and 49 and a son, 46, all in adequate health. ALLERGIES: SENSITIVE TO HYDROCODONE. MEDICATIONS: Include: 1. Amiodarone 200 mg b.i.d. 2. Aspirin 81 mg daily. 3. Lipitor 40 mg daily. 4. Alphagan 0.2% ophthalmic solution 1 drop right eye daily. 5. FiberCon 2 tablets daily. 6. Coreg 6.25 mg daily. 7. Plavix 75 mg daily. 8. Cosopt 1 drop right eye b.i.d. 9. Lasix 20 mg daily. 10.Gabapentin 300 mg t.i.d. 11.Xalatan 0.00 5% 1 drop both eyes at bedtime. 12.Glucophage 250 mg a.c. b.i.d. 13.Plavix 75 mg daily. 14.Metformin ER 500 mg a.c. supper. 15.Tramadol 50 mg q.i.d. p.r.n. 16.Naproxen 250 mg p.r.n. REVIEW OF SYSTEMS: NEURO: Denies any history of chronic headaches. Denies any acute headache at present. No double vision blurred vision. No symptoms of TIA, syncope, seizures. PSYCH: No anxiety, depression. CARDIAC: No chest pain, angina, palpitation. RESPIRATORY: Shortness of breath, orthopnea, PND. No cough, hemoptysis. GI: No nausea, vomiting, abdominal pain, diarrhea, constipation, hematochezia, melena. : No symptoms of dysuria, hematuria, urgency, frequency. EXTREMITIES: Denies pain. Does have edema. CONSTITUTIONAL: No fever, chills. HEMATOLOGICAL: No anemia or bleeding disorder. ENDOCRINE: History of diabetes mellitus. SKIN: No rashes. MUSCULOSKELETAL: Some chronic lower back pain and chronic neck pain. PHYSICAL EXAMINATION: Pleasant gentleman in no distress. VITAL SIGNS: Reveals temperature 97.4, pulse 61, respirations 18, blood pressure 199/97, pulse ox 96% on 2L. HEENT: Normocephalic. Neck has decreased range of motion. Nostrils clear. Oral cavity is moist. Pupils are reactive. Ears reveal no drainage. Neck reveals 1+ JVD. No thyromegaly. No supraclavicular lymphadenopathy. CHEST: Increased AP diameter. Generalized decreased air flow. Increased percussion noted bilateral. Relatively clear lung cortes. CARDIAC: Distant heart sounds. S1, S2 with no gallop. Systolic murmur 2/6 left sternal border and apex. ABDOMEN: Soft, protuberant, nontender. Bowel sounds are active. No organomegaly. Extremities reveal 1+ pitting edema, both lower legs. NEUROLOGIC: Awake, alert, oriented x3 with well-coordinated movements. LABORATORY ASSESSMENT: CBC which was essentially normal. PT, PTT are normal. D-dimer was 2.15. Blood gases of venous was pH 7.42. Electrolytes are normal. BUN 28, creatinine 1.83, glucose 92. Liver functions normal. Troponin 0.013. BNP was 1680. ASSESSMENT: 1. Acute on chronic congestive cardiac failure secondary to systolic dysfunction. 2. Coronary artery disease, stable. 3. History of recent automatic implantable cardioverter-defibrillator placement. 4. Recent ventricular tachycardia, sustained. 5. Diabetes mellitus. 6. Chronic kidney disease stage 3. 7. History of cancer of the prostate. 8. Degenerative arthritis cervical, lumbar spine. PLAN: Continue present medical regimen. Patient's condition discussed with the patient. Prognosis guarded. The patient's V/Q scan has come back negative. The patient has low probability of a pulmonary embolism. The patient's symptoms and signs are very strongly suggestive of left ventricular failure. We will diurese the patient. Losartan will be added. The patient's condition is guarded. MMODL / IJN: [id number] /
[2017-01-22] MEDS: traMADol 50 MG TAB PO PRN ×4 (03:37→18:48)
[2017-01-22 04:04] LABS: Calcium 9.3 mg/dL (8.4-10.2); Potassium 4.1 mmol/L (3.5-5.1)
[2017-01-22 06:06] LABS: Glucose,Whole Blood 120 mg/dL (75-99)
[2017-01-22] MEDS: GABAPENTIN 300 MG CAP PO PRN ×3 (06:26→20:59)
[2017-01-22] MEDS: metFORMIN 500 MG TAB PO SCH ×2 (06:30→17:33)
[2017-01-22] MEDS: AMIODARONE 200 MG TAB PO SCH ×2 (07:58→20:55)
[2017-01-22] MEDS: FUROSEMIDE 10 MG/ML 4 ML VIAL IV SCH ×2 (07:58→20:56)
[2017-01-22] MEDS: HEPARIN SODIUM,PORCINE 5,000 UNIT/ML 1 ML VIAL SQ SCH ×2 (07:58→15:34)
[2017-01-22] MEDS: LOSARTAN 50 MG TAB PO SCH (07:58)
[2017-01-22] MEDS: CLOPIDOGREL 75 MG TAB PO SCH (07:58)
[2017-01-22] MEDS: CALCIUM POLYCARBOPHIL 625 MG TAB PO SCH ×2 (07:58→20:55)
[2017-01-22] MEDS: ASPIRIN 81 MG PO SCH (07:58)
[2017-01-22] MEDS: DORZOLAMIDE-TIMOLOL 2-0.5% DROPS 10 ML BTL RIGHT EYE SCH ×2 (07:59→20:55)
[2017-01-22] MEDS: PILOCARPINE 1% OPHTH DROPS 15 ML BTL RIGHT EYE SCH (07:59)
[2017-01-22] MEDS: BRIMONIDINE TARTRATE 0.2% DROPS 5 ML BTL RIGHT EYE SCH (07:59)
[2017-01-22] MEDS ORDERED: FUROSEMIDE 10 MG/ML 4 ML VIAL IV SCH (09:00)
[2017-01-22] MEDS: SPIRONOLACTONE 25 MG TAB PO SCH (09:22)
[2017-01-22] MEDS: CARVEDILOL 6.25 MG TAB PO SCH ×2 (09:22→17:33)
[2017-01-22 11:22] VITALS: RESP 16
[2017-01-22 12:16] LABS: Glucose,Whole Blood 108 mg/dL (75-99)
[2017-01-22 13:51] VITALS: BMI 32.3
--- NOTE | 2017-01-22 15:24 | CONS ---
CONSULTATION Ben Vega is a 76-year-old gentleman with a known history of CAD, who has ischemic cardiomyopathy and underwent stenting of his left anterior descending coronary artery that was performed in October of this year. He presented with a ventricular tachycardia, sudden cardiac . I performed a FFR of the left main circumflex and LAD and went ahead and performed stenting of mid LAD with a drug-eluting stent on October 21, 2016 with excellent angiographic result. This gentleman had an ejection fraction of less than 35% and was sent home on a LifeVest and recently underwent a recently underwent a dual-chamber ICD for secondary prevention and this was performed on 01/10/[address] Chavez. He came into the [place]. He called his primary care physician with complaints of having more shortness of breath and received oral Lasix but then came into the emergency room because he continued to be short of breath. After arrival, he was found to be in mild congestive heart failure and was given additional Lasix. He feels better at this time. Denies any chest pain. He says last night his shortness of breath, actually woke him up from sleep. He received additional Lasix but still came to the emergency room. He is not in congestive heart failure at this time. His breathing is much better. He does have some rales in the right base. His JVD is also elevated. He is resting comfortably at the time of my evaluation. PAST MEDICAL HISTORY: 1. Ischemic cardiomyopathy. 2. History of PCI. 3. History of ventricular tachycardia on amiodarone and also has a dual-chamber ICD in place about 10 days ago. 4. History of type 2 diabetes mellitus. 5. Hypertension. 6. Hyperlipidemia. 7. History of chronic CKD of mild degree. MEDICATIONS: At home include amiodarone 200 mg daily, Coreg 6.25 mg b.i.d., aspirin 81 mg daily. Plavix 75 mg daily, gabapentin, and he also takes metformin 500 mg b.i.d. PHYSICAL EXAMINATION: Blood pressure is 128/70, pulse rate is about 60 per minute, regular. HEENT: Unremarkable. Fundus was not examined by me. Neck is supple. There is JVD of 1 cm. No carotid bruit. Heart exam reveals S1, S2 with a short systolic murmur. Lungs revealed decent air entry with rales in the right base. Abdomen is soft, nontender. Lower extremity reveals no edema. Diminished pulses. Central nervous system is normal. EKG revealed sinus mechanism, old inferior DC. Nonspecific ST changes. LABORATORY DATA: Suggests that there is no significant elevation of troponin. His BNP was about 1680. Thyroid functions are normal. D-dimer was elevated and he went on to have a lung perfusion study which revealed low probability of pulmonary embolism. IMPRESSION: 1. Exacerbation of systolic heart failure in a patient with ischemic cardiomyopathy. 2. Status post prior myocardial infarction involving the right coronary artery which is totally occluded and also had recently stenting of LAD performed by me in October. 3. Ventricular tachycardia status post dual-chamber ICD and amiodarone. 4. Type 2 diabetes mellitus. 5. Mild chronic kidney disease. RECOMMENDATIONS: I am recommending that we will continue Lasix till tomorrow IV and then switch him to oral Lasix, increase activity and hopefully plan for discharge. I will also place him on a small dose of Aldactone even though the creatinine is mildly elevated. We will use a 12.5 mg daily for this. Discussed my thoughts in detail with the patient. Thank you very much for the consult. SHANTA / EDILSONN: [id number] /
[2017-01-22 16:47] LABS: Glucose,Whole Blood 88 mg/dL (75-99)
[2017-01-22] MEDS ORDERED: ATORVASTATIN 40 MG TAB PO SCH (17:30)
[2017-01-22] MEDS ORDERED: CARVEDILOL 6.25 MG TAB PO SCH (17:30)
[2017-01-22 20:53] LABS: Glucose,Whole Blood 103 mg/dL (75-99)
[2017-01-22] MEDS: LATANOPROST 0.005% OPHTH DROPS 2.5 ML BTL BOTH EYES SCH (20:56)
[2017-01-23] MEDS: HEPARIN SODIUM,PORCINE 5,000 UNIT/ML 1 ML VIAL SQ SCH ×2 (00:48→09:11)
[2017-01-23] MEDS: traMADol 50 MG TAB PO PRN ×2 (03:27→09:06)
--- NOTE | 2017-01-23 04:57 | PN ---
PROGRESS NOTE CHIEF COMPLAINT: Re-evaluation. HISTORY OF PRESENT ILLNESS: A 76-year-old who was admitted to the hospital with acute congestive cardiac failure secondary to systolic dysfunction. The patient has underlying history of coronary artery disease and ischemic cardiomyopathy. He recently had an AICD placed because of recent episode of ventricular tachycardia. The patient actually is feeling much better today. He has been diuresed fairly well. REVIEW OF SYSTEMS: NEURO: Does have some headache which is chronic and associated with neck pain. No dizziness. No double vision. Psych: No anxiety or depression. CARDIAC: No chest pain, angina or palpitation. RESPIRATORY: No shortness of breath, cough, hemoptysis. GI: No nausea, vomiting, abdominal pain, diarrhea, constipation. : No symptoms of dysuria or hematuria. Does have frequency. EXTREMITIES: No pain. CONSTITUTIONAL: No fever or chills. PHYSICAL EXAMINATION: Pleasant gentleman in no distress. Vital signs reveal a temperature 96.9, pulse 55, respirations 18, blood pressure 147/80, pulse ox 99% on room air. HEENT: Normocephalic. NECK: Supple. No JVD. CHEST: Clear to auscultation with mild decreased air flow at the bases. CARDIAC: Normal S1, S2 with no gallop. Systolic murmur 2/6 left sternal border. Regular rhythm. ABDOMEN: Soft. Bowel sounds present. Extremities reveal no edema at present. The patient did have 1+ edema yesterday. NEUROLOGICALLY: Awake, alert, oriented x3 with well-coordinated movements. LABORATORY ASSESSMENT: Laboratory assessment is sodium 140, potassium 4.1, chloride 100, CO2 content 31, BUN 27, creatinine 1.8, glucose 129. ASSESSMENT: 1. Acute on chronic congestive cardiac failure, improved with diuresis. 2. Chronic kidney disease stage 3. 3. History of diabetes mellitus. 4. Coronary artery disease, stable. 5. History of ventricular tachycardia with recent AICD. PLAN: The patient at present is stable, continue present medical regimen. Patient's condition discussed with the lead principal technical architect. Potential discharge home tomorrow if patient remains stable. The patient's condition is discussed with the patient. Prognosis guarded. MMODL / IJN: [id number] /
[2017-01-23] MEDS: GABAPENTIN 300 MG CAP PO PRN (06:08)
[2017-01-23 06:18] LABS: Glucose,Whole Blood 97 mg/dL (75-99)
[2017-01-23] MEDS: metFORMIN 500 MG TAB PO SCH (06:33)
[2017-01-23] MEDS: CARVEDILOL 6.25 MG TAB PO SCH (06:33)
[2017-01-23 06:43] LABS: Potassium 4.9 mmol/L (3.5-5.1)
[2017-01-23] MEDS ORDERED: FUROSEMIDE 40 MG TAB PO SCH (09:00)
[2017-01-23 09:03] VITALS: BP 131/70; PULSE 57; TEMP 97
[2017-01-23] MEDS: BRIMONIDINE TARTRATE 0.2% DROPS 5 ML BTL RIGHT EYE SCH (09:03)
[2017-01-23] MEDS: SPIRONOLACTONE 25 MG TAB PO SCH (09:05)
[2017-01-23] MEDS: ASPIRIN 81 MG PO SCH (09:05)
[2017-01-23] MEDS: CALCIUM POLYCARBOPHIL 625 MG TAB PO SCH (09:09)
[2017-01-23] MEDS: CLOPIDOGREL 75 MG TAB PO SCH (09:09)
[2017-01-23] MEDS: PILOCARPINE 1% OPHTH DROPS 15 ML BTL RIGHT EYE SCH (09:10)
[2017-01-23] MEDS: AMIODARONE 200 MG TAB PO SCH (09:11)
[2017-01-23] MEDS: LOSARTAN 50 MG TAB PO SCH (09:12)
[2017-01-23] MEDS: DORZOLAMIDE-TIMOLOL 2-0.5% DROPS 10 ML BTL RIGHT EYE SCH (09:14)
--- NOTE | 2017-01-23 21:10 | CONS ---
CONSULTATION SHNATA / IJN: [id number] /
[2017-01-24] MEDS ORDERED: AMIODARONE 200 MG TAB PO SCH (09:00)
--- NOTE | 2017-02-08 12:24 | P.DS ---
Providers Date of admission: 01/21/17 18:18 Attending physician: Masoud Omalley Consults: 01/21/17 21:35 Consult Physician Routine Consulting Provider: Bert Zuñiga Consult Reason/Comments: chf Do you want consulting provider notified?: Yes, Notify in am Primary care physician: Masoud Omalley [facility] Course: Hospital course: This 76-year-old gentleman was admitted to the hospital with shortness of breath. The patient had called that he was short of breath for the night.I did see the patient in the office. He had been advised to take additional dose of Lasix in the morning when he called me. By the time I saw a couple hours later he had diuresed significantly. His breathing was better. Patient was advised to take an additional Lasix later. If symptoms worsened or not better then he was to present to the emergency room. He did come to the ER in view of that. Actually had diuresed significantly by that time. He had did not give her any more Lasix. We did admit him to the hospital and continued IV Lasix over the next 48 hours. Patient diuresed well renal function deteriorated some however stabilized. The patient does have a history of ischemic cardiomyopathy. No symptoms of angina. He had a recent AICD and biventricular pacemaker placed. He was seen by cardiology. Patient's general condition remaining stable he was discharged home on medications. The patient previously with Aldactone and diuresis had developed significant azotemia. In view of this we will cautious adjust his medications with repeated lab evaluations on the outpatient. Final diagnosis to include 1. Acute on chronic congestive cardiac failure secondary to systolic dysfunction 2. Chronic kidney disease 3 3. History of diabetes mellitus with no complications 4. Stable coronary artery disease 5. COPD 6. Recent history of ventricular tachycardia status post AICD Patient Condition at Discharge: Stable Plan - Discharge Summary Discharge Rx Participant: Yes New Discharge Prescriptions: New Carvedilol [Coreg] 6.25 mg PO BID-W/MEALS tab Furosemide [Lasix] 40 mg PO DAILY tab Losartan [Cozaar] 50 mg PO DAILY #30 tab Spironolactone [Aldactone] 12.5 mg PO Q48H #30 tab Continue Aspirin EC [Ecotrin Low Dose] 81 mg PO DAILY #100 tablet. metFORMIN HCL ER [Glucophage Xr] 500 mg PO AC-SUPPER Furosemide [Lasix] 20 mg PO AC-SUPPER Gabapentin [Neurontin] 300 mg PO TID PRN PRN Reason: Pain Latanoprost [Xalatan 0.005%] 1 drop BOTH EYES HS [place] 1% Ophth Soln [Isopto Carpine 1%] 1 drops RIGHT EYE DAILY Clopidogrel [Plavix] 75 mg PO DAILY #30 tab Nitroglycerin Sl Tabs [Nitrostat] 0.4 mg SUBLINGUAL Q5M PRN tab PRN Reason: Chest Pain traMADol HCl [Ultram] 50 mg PO QID PRN tab PRN Reason: Generalized pain Amiodarone [Cordarone] 200 mg PO DAILY Dorzolamide-Timolol 2%/0.5% [dorzolamide-Timolol 2%/0.5%] 1 drop RIGHT EYE BID Calcium Polycarbophil [Fibercon] 625 mg PO BID Atorvastatin [Lipitor] 40 mg PO AC-SUPPER Brimonidine Tartrate [Alphagan P 0.15% Ophth Soln] 1 drops RIGHT EYE DAILY Naproxen 250 mg PO DAILY PRN PRN Reason: Pain Discontinued Carvedilol [Coreg] 6.25 mg PO AC-SUPPER Discharge Medication List Aspirin EC [Ecotrin Low Dose] 81 mg PO DAILY #100 tablet. 06/24/14 [Rx] Furosemide [Lasix] 20 mg PO AC-SUPPER 10/18/16 [History] Gabapentin [Neurontin] 300 mg PO TID PRN 10/18/16 [History] Latanoprost [Xalatan 0.005%] 1 drop BOTH EYES HS 10/18/16 [History] Pilocarp[place] 1% Ophth Soln [Isopto Carpine 1%] 1 drops RIGHT EYE DAILY 10/18/16 [ History] metFORMIN HCL ER [Glucophage Xr] 500 mg PO AC-SUPPER 10/18/16 [History] Clopidogrel [Plavix] 75 mg PO DAILY #30 tab 10/22/16 [Rx] Nitroglycerin Sl Tabs [Nitrostat] 0.4 mg SUBLINGUAL Q5M PRN tab 11/21/16 [Rx] traMADol HCl [Ultram] 50 mg PO QID PRN tab 11/21/16 [Rx] Amiodarone [Cordarone] 200 mg PO DAILY 12/22/16 [History] Dorzolamide-Timolol 2%/0.5% [dorzolamide-Timolol 2%/0.5%] 1 drop RIGHT EYE BID 12/22/16 [History] Atorvastatin [Lipitor] 40 mg PO AC-SUPPER 01/07/17 [History] Brimonidine Tartrate [Alphagan P 0.15% Ophth Soln] 1 drops RIGHT EYE DAILY 01/07 [History] Calcium Polycarbophil [Fibercon] 625 mg PO BID 01/07/17 [History] Naproxen 250 mg PO DAILY PRN 01/07/17 [History] Carvedilol [Coreg] 6.25 mg PO BID-W/MEALS tab 01/23/17 [Rx] Furosemide [Lasix] 40 mg PO DAILY tab 01/23/17 [Rx] Losartan [Cozaar] 50 mg PO DAILY #30 tab 01/23/17 [Rx] Spironolactone [Aldactone] 12.5 mg PO Q48H #30 tab 01/23/17 [Rx] Follow up Appointment(s)/Referral(s): Masoud Omalley MD [Primary Care Provider] - 01/28/17 4:30 pm (If any shortness of breath reoccurs or worsens, please call office to be seen sooner. ) Bert Zuñiga MD [STAFF PHYSICIAN] - 1 Week (Office to call patient with follow up appointment time. ) Patient Instructions/Handouts: Heart Failure (DC), Chronic Kidney Disease Diet (DC), Low Sodium Diet (DC) Discharge Disposition: HOME SELF-CARE
== END 2017-01-23 12:01 | disposition home or self-care (01) | DRG 291 ==
LOC: EC 15:50 → 6SEL 18:18
PROVIDERS: ADMIT Internal Medicine; ATTEND Internal Medicine
DX: I13.0 Hypertensive heart and chronic kidney disease with heart failure and stage 1 through stage 4 chronic kidney disease, or unspecified chronic kidney disease (principal); I50.23 Acute on chronic systolic (congestive) heart failure; I47.2 Ventricular tachycardia; E11.22 Type 2 diabetes mellitus with diabetic chronic kidney disease; J44.9 Chronic obstructive pulmonary disease, unspecified; I25.5 Ischemic cardiomyopathy; I25.10 Atherosclerotic heart disease of native coronary artery without angina pectoris; E78.5 Hyperlipidemia, unspecified; H40.9 Unspecified glaucoma; I25.2 Old myocardial infarction; M10.9 Gout, unspecified; M46.92 Unspecified inflammatory spondylopathy, cervical region; N18.3 Chronic kidney disease, stage 3 (moderate); Z79.02 Long term (current) use of antithrombotics/antiplatelets; Z79.899 Other long term (current) drug therapy; Z85.46 Personal history of malignant neoplasm of prostate; Z86.711 Personal history of pulmonary embolism; Z86.79 Personal history of other diseases of the circulatory system; Z87.891 Personal history of nicotine dependence; Z95.5 Presence of coronary angioplasty implant and graft; Z95.810 Presence of automatic (implantable) cardiac defibrillator; Z79.84 Long term (current) use of oral hypoglycemic drugs; Z79.82 Long term (current) use of aspirin
CPT/HCPCS: 36415; 71010; 71250; 78582; 80048; 80053; 82803; 83036; 83735; 83880; 84443; 84484; 85025; 85379; 85610; 85730; 93005; 99285

== ENCOUNTER → 2017-01-25 | Outpatient (CLI) | payer MEDICARE, BC ==
[2017-01-25 08:35] LABS: Calcium 9.7 mg/dL (8.4-10.2); Potassium 5.2 mmol/L (3.5-5.1)
== END | disposition home or self-care (01) ==
LOC: LABWHC1 07:55
PROVIDERS: ATTEND Internal Medicine
DX: I50.9 Heart failure, unspecified (principal)
CPT/HCPCS: 36415; 80048

== ENCOUNTER 2017-02-08 11:57 | Emergency (ER) | payer MEDICARE, BC ==
[2017-02-08 12:19] VITALS: BP 129/68; PULSE 55; RESP 16
[2017-02-08] MEDS ORDERED: DIPH,PERTUS(ACELL)TETVAC-LF 0.5 ML VIAL IM ONE (12:40)
[2017-02-08] MEDS ORDERED: GELATIN SPONGE,ABSORB (SMALL) 1 EACH SPONGE TOPICAL STA (12:45)
--- NOTE | 2017-02-08 13:27 | XR ---
EXAMINATION TYPE: XR finger LT , 3 VIEWS DATE OF EXAM ORDERED: 02/08/2017 HISTORY: laceration. COMPARISON: None. FINDINGS: There is a soft tissue defect overlying the distal phalanx of the thumb. No definite fract ure or dislocation is seen. IMPRESSION: 1. NO ACUTE OSSEOUS LESION. 2. SOFT TISSUE INJURY.
--- NOTE | 2017-02-08 13:32 | ED ---
Wound/Laceration HPI - General Chief Complaint: Wound/Laceration Stated Complaint: left thumb injury with table saw Time Seen by Provider: 02/08/17 12:27 Source: patient, RN notes reviewed Mode of arrival: ambulatory Limitations: no limitations - History of Present Illness Initial Comments: This is a 76-year-old male who presents to the emergency department chief complaint of a left thumb laceration. Patient states that approximately 40 minutes prior to arrival he was using a circular saw to cut plywood. He states that the board of wood jumped, lacerating his left thumb. Patient states there was minimal bleeding and that it was easily controlled. States he has full range of motion. He states his last tetanus vaccination was 5 years ago. Denies any other injury or trauma. Denies fever, chills, chest pain, shortness of breath, abdominal pain, nausea or vomiting, constipation or diarrhea, dysuria or hematuria, numbness or tingling, headache or vision changes. - Related Data Home Medications Medication Instructions Recorded Confirmed Furosemide [Lasix] 20 mg PO AC-SUPPER 10/18/16 01/23/17 Gabapentin [Neurontin] 300 mg PO TID PRN 10/18/16 01/21/17 Latanoprost [Xalatan 0.005%] 1 drop BOTH EYES HS 10/18/16 01/21/17 Pilocarpine 1% Ophth Soln [Isopto 1 drops RIGHT EYE DAILY 10/18/16 01/21/17 Carpine 1%] metFORMIN HCL ER [Glucophage Xr] 500 mg PO AC-SUPPER 10/18/16 01/21/17 Amiodarone [Cordarone] 200 mg PO DAILY 12/22/16 01/23/17 Dorzolamide-Timolol 2%/0.5% 1 drop RIGHT EYE BID 12/22/16 01/21/17 [dorzolamide-Timolol 2%/0.5%] Atorvastatin [Lipitor] 40 mg PO AC-SUPPER 01/07/17 01/21/17 Brimonidine Tartrate [Alphagan P 1 drops RIGHT EYE DAILY 01/07/17 01/21/17 0.15% Ophth Soln] Calcium Polycarbophil [Fibercon] 625 mg PO BID 01/07/17 01/21/17 Naproxen 250 mg PO DAILY PRN 01/07/17 01/21/17 Previous Rx's Medication Instructions Recorded Aspirin EC [Ecotrin Low Dose] 81 mg PO DAILY #100 tablet. 06/24/14 Clopidogrel [Plavix] 75 mg PO DAILY #30 tab 10/22/16 Nitroglycerin Sl Tabs [Nitrostat] 0.4 mg SUBLINGUAL Q5M PRN tab 11/21/16 traMADol HCl [Ultram] 50 mg PO QID PRN tab 11/21/16 Carvedilol [Coreg] 6.25 mg PO BID-W/MEALS tab 01/23/17 Furosemide [Lasix] 40 mg PO DAILY tab 01/23/17 Losartan [Cozaar] 50 mg PO DAILY #30 tab 01/23/17 Spironolactone [Aldactone] 12.5 mg PO Q48H #30 tab 01/23/17 Cephalexin [Keflex] 500 mg PO Q12HR #20 cap 02/08/17 Allergies Allergy/AdvReac Type Severity Reaction Status Date / Time spironolactone Allergy Unknown Verified 02/08/17 12:10 hydrocodone bitartrate AdvReac Confusion Verified 02/08/17 12:09 [From Vicodin] Review of Systems ROS Statement: Those systems with pertinent positive or pertinent negative responses have been documented in the HPI. ROS Other: All systems not noted in ROS Statement are negative. Past Medical History Past Medical History: Coronary Artery Disease (CAD), Cancer, Chest Pain / Angina , Diabetes Mellitus, Eye Disorder, Hyperlipidemia, Hypertension, Myocardial Infarction ([place]), Osteoarthritis (OA), Pneumonia, Prostate Disorder, Pulmonary Embolus (PE), Renal Disease Additional Past Medical History / Comment(s): See Dr Chavez's H&P. NIDDM type II, chronic kidney disease stage III, R eye glaucoma, pulmonary emboli L lung, prostate cancer with surgery, chronic haider/cervical and shoulder pain, back pain, diverticular dx, past gout. Last Myocardial Infarction Date:: 10/18/16 History of Any Multi-Drug Resistant Organisms: None Reported Past Surgical History: AICD, Back Surgery, Heart Catheterization, Heart Catheterization With Stent, Hernia Repair, Pacemaker, Prostate Surgery Additional Past Surgical History / Comment(s): CARDIOVERSION/WORE LEFE VEST UNTIL AICD IMPLANTED 01-10-17.. hx: lumbar surgery twice, cervical epidural injections, bilateral inguinal hernia repairs, TURP, colonoscopy, hemorrhoidectomy, bilateral cataracts removed Past Anesthesia/Blood Transfusion Reactions: No Reported Reaction Date of Last Stent Placement:: 10/18/16 Type of Cardiac Device: AICD Device Placement Date:: 01-10-17 Past Psychological History: No Psychological Hx Reported Smoking Status: Former smoker Past Alcohol Use History: None Reported Past Drug Use History: None Reported - Past Family History Mother Family Medical History: Unable to Obtain Additional Family Medical History / Comment(s): Mother of unknown cause. Father Family Medical History: Unable to Obtain Additional Family Medical History / Comment(s): Father of unknown cause. General Exam - General Exam Comments Initial Comments: General: Awake and alert, well-developed; in no apparent distress. HEENT: Head atraumatic, normocephalic. Pupils are equal, round and reactive to light. Extraocular movements intact. Oropharynx moist without erythema or exudate. Neck: Supple. Normal ROM. Cardiovascular: Regular rate and rhythm. No murmurs, rubs or gallops. Chest symmetrical. Respiratory: Lungs clear to auscultation bilaterally. No wheezes, rales or rhonchi. Normal respiratory effort with no use of accessory muscles. Musculoskeletal: Patient has normal active and passive range of motion of the left thumb. Sensation is intact. Radial pulses are 2+ equal and palpable bilaterally. Skin: [place], warm and dry without. There is an approximately 2.0 cm skin avulsion at the distal tip palmar aspect of left thumb. Bleeding is controlled. Neurological: Alert and oriented x3. CN II-XII grossly intact. Speech is fluent and answers are appropriate. No focal neuro deficits. Psychiatric: Normal mood and affect. No overt signs of depression or anxiety noted. Limitations: no limitations Course Vital Signs 02/08/17 12:10 Pulse Rate 55 L Respiratory 16 Rate Blood Pressure 129/68 O2 Sat by Pulse 98 Oximetry Procedures - Laceration Laceration #1 Consent Obtained: verbal consent Indication: laceration Site: hand (Left distal thumb) Size (cm): 2 Description: avulsion Depth: involves muscle layer Anesthetic Used: lidocaine 1% Anesthesia Technique: nerve block Amount (mls): 3 Pre-repair: wound explored, irrigated extensively, deep structures intact Type of Sutures: nylon Size of Sutures: 4-0 Number of Sutures: 5 Technique: simple, interrupted Patient Tolerated Procedure: well, no complications Additional Comments: gel foam applied to avulsed area Medical Decision Making - Medical Decision Making This is a 76-year-old male who presents to the emergency department with chief complaint of left thumb laceration. Patient had an approximately 2.0 cm skin avulsion distal tip of left thumb. X-ray revealed no acute abnormalities of the bone. 5 sutures and Gelfoam were placed and patient tolerated well without complication. He is neurovascularly intact. Referred patient to Dr. Naveed Suárez for further evaluation. Prescribed antibiotics and patient was made up -to-date with tetanus vaccination. He was in agreement with plan and voiced understanding. All questions were answered. - Radiology Data Radiology results: report reviewed Left thumb x-ray findings: There is a soft tissue defect overlying the distal phalanges of the thumb. No definite fracture or dislocation is seen. Impression: 1. No acute osseous lesion. 2. Soft tissue injury. Disposition Clinical Impression: Finger laceration, Skin avulsion Disposition: HOME SELF-CARE Condition: Good Instructions: Finger Laceration (ED), Skin Avulsion (ED) Additional Instructions: Please follow up with hand surgeon Dr. Suárez within 1-2 days. Please have sutures removed within 10-14 days. Please keep dressing clean, dry and intact. Please take medications as prescribed. Please follow up with primary care provider within 1-2 days. Return to emergency department if symptoms should worsen or any concerns arise. Prescriptions: Cephalexin [Keflex] 500 mg PO Q12HR #20 cap Referrals: Masoud Omalley MD [Primary Care Provider] - 1-2 days Shukri Suárez DO [Doctor of Osteopathic Medicine] - 1-2 days Time of Disposition: 14:03
== END 2017-02-08 14:09 | disposition home or self-care (01) ==
LOC: EC 11:57
DX: S61.012A Laceration without foreign body of left thumb without damage to nail, initial encounter (principal); I25.119 Atherosclerotic heart disease of native coronary artery with unspecified angina pectoris; E11.22 Type 2 diabetes mellitus with diabetic chronic kidney disease; I12.9 Hypertensive chronic kidney disease with stage 1 through stage 4 chronic kidney disease, or unspecified chronic kidney disease; N18.3 Chronic kidney disease, stage 3 (moderate); I25.2 Old myocardial infarction; E78.5 Hyperlipidemia, unspecified; M19.90 Unspecified osteoarthritis, unspecified site; Z23 Encounter for immunization; Z86.711 Personal history of pulmonary embolism; Z85.46 Personal history of malignant neoplasm of prostate; Z87.891 Personal history of nicotine dependence; Z79.84 Long term (current) use of oral hypoglycemic drugs; Z79.899 Other long term (current) drug therapy; Z88.5 Allergy status to narcotic agent; Z88.8 Allergy status to other drugs, medicaments and biological substances; W31.2XXA Contact with powered woodworking and forming machines, initial encounter
CPT/HCPCS: 12001; 90471; 90715; 99283

== ENCOUNTER → 2017-06-04 | Outpatient (CLI) | payer MEDICARE, BC ==
[2017-06-04 08:41] LABS: HCT 39.4 % (39.0-53.0); HGB 13.5 gm/dL (13.0-17.5); MCH 31.7 pg (25.0-35.0); MCHC 34.4 g/dL (31.0-37.0); MCV 92.2 fL (80.0-100.0); Mean Platelet Volume 7.9; Platelet Count 177 k/uL (150-450); Poikilocytosis Slight; RBC 4.27 m/uL (4.30-5.90); RDW 15.8 % (11.5-15.5); WBC 6.5 k/uL (3.8-10.6)
[2017-06-04 08:49] LABS: Albumin 4.1 g/dL (3.5-5.0); Calcium 9.4 mg/dL (8.4-10.2); Potassium 4.8 mmol/L (3.5-5.1); Total Bilirubin 0.8 mg/dL (0.2-1.3); Total Protein 7.3 g/dL (6.3-8.2)
== END | disposition home or self-care (01) ==
LOC: LABWHC1 08:12
PROVIDERS: ATTEND Internal Medicine
DX: I25.10 Atherosclerotic heart disease of native coronary artery without angina pectoris (principal); E78.5 Hyperlipidemia, unspecified; N18.3 Chronic kidney disease, stage 3 (moderate)
CPT/HCPCS: 36415; 80053; 80061; 83970; 85027

== ENCOUNTER → 2017-07-19 | Outpatient (CLI) | payer MEDICARE, BC ==
[2017-07-19 08:45] LABS: HCT 40.2 % (39.0-53.0); HGB 13.1 gm/dL (13.0-17.5); MCHC 32.5 g/dL (31.0-37.0); MCV 92.3 fL (80.0-100.0); Mean Platelet Volume 8.1; Platelet Count 188 k/uL (150-450); RBC 4.36 m/uL (4.30-5.90); RDW 14.6 % (11.5-15.5); WBC 5.7 k/uL (3.8-10.6)
[2017-07-19 08:55] LABS: Calcium 9.3 mg/dL (8.4-10.2); Potassium 4.8 mmol/L (3.5-5.1)
== END | disposition home or self-care (01) ==
LOC: LABWHC1 08:03
PROVIDERS: ATTEND Internal Medicine
DX: I25.5 Ischemic cardiomyopathy (principal); I13.0 Hypertensive heart and chronic kidney disease with heart failure and stage 1 through stage 4 chronic kidney disease, or unspecified chronic kidney disease; I50.40 Unspecified combined systolic (congestive) and diastolic (congestive) heart failure; N18.9 Chronic kidney disease, unspecified; E03.9 Hypothyroidism, unspecified
CPT/HCPCS: 36415; 80048; 83880; 84443; 85027

== ENCOUNTER 2017-07-30 08:43 | Emergency (ER) | payer MEDICARE, BC ==
[2017-07-30 08:47] VITALS: RESP 18
[2017-07-30] MEDS ORDERED: ASPIRIN 81 MG PO STA (08:51)
[2017-07-30] MEDS ORDERED: ONDANSETRON 4 MG/2 ML VIAL IVP STA (08:52)
[2017-07-30] MEDS ORDERED: MORPHINE SULFATE 4 MG/ML SYRINGE IVP ONE (08:52)
--- NOTE | 2017-07-30 08:55 | ED ---
Abdominal Pain HPI - General Chief Complaint: Abdominal Pain Stated Complaint: Abd Pain Time Seen by Provider: 07/30/17 08:47 Source: patient, RN notes reviewed Mode of arrival: wheelchair Limitations: no limitations - History of Present Illness Initial Comments: This a 77-year-old male presents emergency Department chief complaint of left upper quadrant abdominal, lower rib pain. Patient states started approximately one week ago when he felt that he injured himself while cleaning up some trees outside. Patient states pains are getting any worse he does state that it's worse with movement. Patient denies any fever, chills. Does state that hurts when he takes a deep inspiration. Hurts when he twists and bends. Patient denies any bruising, rash. Patient denies any dysuria, hematuria, diarrhea constipation. Patient states never had any like this in the past. - Related Data Home Medications Medication Instructions Recorded Confirmed Furosemide [Lasix] 20 mg PO AC-SUPPER 10/18/16 07/30/17 Gabapentin [Neurontin] 300 mg PO BID 10/18/16 07/30/17 Latanoprost [Xalatan 0.005%] 1 drop BOTH EYES HS 10/18/16 07/30/17 Pilocarpine 1% Ophth Soln [Isopto 1 drops RIGHT EYE DAILY 10/18/16 07/30/17 Carpine 1%] metFORMIN HCL ER [Glucophage Xr] 500 mg PO AC-SUPPER 10/18/16 07/30/17 Dorzolamide-Timolol 2%/0.5% 1 drop RIGHT EYE BID 12/22/16 07/30/17 [dorzolamide-Timolol 2%/0.5%] Atorvastatin [Lipitor] 40 mg PO AC-SUPPER 01/07/17 07/30/17 Brimonidine Tartrate [Alphagan P 1 drops RIGHT EYE DAILY 01/07/17 07/30/17 0.15% Ophth Soln] Calcium Polycarbophil [Fibercon] 625 mg PO BID 01/07/17 07/30/17 Gabapentin [Neurontin] 300 mg PO DAILY PRN 04/05/17 07/30/17 Naproxen Sodium [Anaprox] 275 mg PO BID PRN 04/05/17 07/30/17 Previous Rx's Medication Instructions Recorded Aspirin EC [Ecotrin Low Dose] 81 mg PO DAILY #100 tablet. 06/24/14 Clopidogrel [Plavix] 75 mg PO DAILY #30 tab 10/22/16 Nitroglycerin Sl Tabs [Nitrostat] 0.4 mg SUBLINGUAL Q5M PRN tab 11/21/16 Carvedilol [Coreg] 6.25 mg PO BID-W/MEALS tab 01/23/17 Furosemide [Lasix] 40 mg PO DAILY tab 01/23/17 Losartan [Cozaar] 50 mg PO DAILY #30 tab 01/23/17 Acetaminophen-Codeine 300-30mg 1 tab PO Q4H PRN #15 tablet 07/30/17 [Tylenol #3] Allergies Allergy/AdvReac Type Severity Reaction Status Date / Time spironolactone Allergy Unknown Verified 07/30/17 09:00 hydrocodone bitartrate AdvReac Confusion Verified 07/30/17 09:00 [From Vicodin] Review of Systems ROS Statement: Those systems with pertinent positive or pertinent negative responses have been documented in the HPI. ROS Other: All systems not noted in ROS Statement are negative. Past Medical History Past Medical History: Coronary Artery Disease (CAD), Cancer, Chest Pain / Angina , Diabetes Mellitus, Eye Disorder, Hyperlipidemia, Hypertension, Myocardial Infarction ([place]), Osteoarthritis (OA), Pneumonia, Prostate Disorder, Pulmonary Embolus (PE), Renal Disease Additional Past Medical History / Comment(s): See Dr Chavez's H&P. NIDDM type II, chronic kidney disease stage III, R eye glaucoma, pulmonary emboli L lung, prostate cancer with surgery, chronic haider/cervical and shoulder pain, back pain, diverticular dx, past gout. Last Myocardial Infarction Date:: 10/18/16 History of Any Multi-Drug Resistant Organisms: None Reported Past Surgical History: AICD, Back Surgery, Heart Catheterization, Heart Catheterization With Stent, Hernia Repair, Pacemaker, Prostate Surgery Additional Past Surgical History / Comment(s): CARDIOVERSION/WORE LEFE VEST UNTIL AICD IMPLANTED 01-10-17.. hx: lumbar surgery twice, cervical epidural injections, bilateral inguinal hernia repairs, TURP, colonoscopy, hemorrhoidectomy, bilateral cataracts removed Past Anesthesia/Blood Transfusion Reactions: No Reported Reaction Date of Last Stent Placement:: 10/18/16 Type of Cardiac Device: AICD Device Placement Date:: 01-10-17 Past Psychological History: No Psychological Hx Reported Smoking Status: Former smoker Past Alcohol Use History: None Reported Past Drug Use History: None Reported - Past Family History Mother Family Medical History: Unable to Obtain Additional Family Medical History / Comment(s): Mother of unknown cause. Father Family Medical History: Unable to Obtain Additional Family Medical History / Comment(s): Father of unknown cause. General Exam Limitations: no limitations General appearance: alert, in no apparent distress Head exam: Present: atraumatic, normocephalic, normal inspection Eye exam: Present: normal appearance, PERRL, EOMI. Absent: scleral icterus, conjunctival injection, periorbital swelling ENT exam: Present: normal exam, normal oropharynx, mucous membranes moist Neck exam: Present: normal inspection, full ROM. Absent: tenderness, meningismus, lymphadenopathy Respiratory exam: Present: normal lung sounds bilaterally, chest wall tenderness (Moderate left lower). Absent: respiratory distress, wheezes, rales , rhonchi, stridor Cardiovascular Exam: Present: regular rate, normal rhythm, normal heart sounds. Absent: systolic murmur, diastolic murmur, rubs, gallop, clicks GI/Abdominal exam: Present: soft, tenderness (Moderate tenderness left upper quadrant), normal bowel sounds. Absent: distended, guarding, rebound, rigid Back exam: Absent: CVA tenderness (R), CVA tenderness (L) Skin exam: Present: warm, dry, intact, normal color. Absent: rash Course Vital Signs 07/30/17 07/30/17 08:44 10:15 Temperature 97.0 F L 96.9 F L Pulse Rate 61 55 L Respiratory 18 18 Rate Blood Pressure 194/82 152/69 O2 Sat by Pulse 97 100 Oximetry Medical Decision Making - Medical Decision Making This a 77-year-old male presented from for left sided pain abdomen and lower rib region. Pain is slightly reproducible though patient had elevated troponin. Patient elevate for may be related to his renal failure. Patient has no acute EKG changes from prior. Dr. Mendez did discuss the case with Dr. Omalley who recommends the patient to be discharged and not admitted to the hospital. He will follow-up in office and return for any worsening symptoms. - Lab Data Result diagrams: 07/30/17 09:00 07/30/17 09:00 Lab Results 07/30/17 07/30/17 07/30/17 Range/Units 09:00 09:00 09:00 WBC 5.3 (3.8-10.6) k/uL RBC 4.22 L (4.30-5.90) m/uL Hgb 12.8 L (13.0-17.5) gm/dL Hct 38.4 L (39.0-53.0) % MCV 91.0 (80.0-100.0) fL MCH 30.4 (25.0-35.0) pg MCHC 33.4 (31.0-37.0) g/dL RDW 14.4 (11.5-15.5) % Plt Count 166 (150-450) k/uL Neutrophils % 72 % Lymphocytes % 16 % Monocytes % 6 % Eosinophils % 3 % Basophils % 1 % Neutrophils # 3.8 (1.3-7.7) k/uL Lymphocytes # 0.8 L (1.0-4.8) k/uL Monocytes # 0.3 (0-1.0) k/uL Eosinophils # 0.2 (0-0.7) k/uL Basophils # 0.0 (0-0.2) k/uL PT (9.0-12.0) sec INR (<1.2) APTT (22.0-30.0) sec Sodium 146 H (137-145) mmol/L Potassium 4.4 (3.5-5.1) mmol/L Chloride 106 (98-107) mmol/L Carbon Dioxide 26 (22-30) mmol/L Anion Gap 14 mmol/L BUN 38 H (9-20) mg/dL Creatinine 1.92 H (0.66-1.25) mg/dL Est GFR (CKD-EPI)AfAm 39 (>60 ml/min/1.73 sqM) Est GFR (CKD-EPI)NonAf 33 (>60 ml/min/1.73 sqM) Glucose 133 H (74-99) mg/dL Calcium 8.8 (8.4-10.2) mg/dL Magnesium 2.3 (1.6-2.3) mg/dL Total Bilirubin 0.7 (0.2-1.3) mg/dL AST 30 (17-59) U/L ALT 33 (21-72) U/L Alkaline Phosphatase 104 (38-126) U/L Total Creatine Kinase 77 (55-170) U/L CK-MB (CK-2) 1.7 (0.0-2.4) ng/mL CK-MB (CK-2) Rel Index 2.2 Troponin I 0.064 H* (0.000-0.034) ng/mL NT-Pro-B Natriuret Pep pg/mL Total Protein 6.9 (6.3-8.2) g/dL Albumin 3.8 (3.5-5.0) g/dL Amylase 69 (30-110) U/L Lipase 139 (23-300) U/L Urine Color Urine Appearance (Clear) Urine pH (5.0-8.0) Ur Specific Boyd (1.001-1.035) Urine Protein (Negative) Urine Glucose (UA) (Negative) Urine Ketones (Negative) Urine Blood (Negative) Urine Nitrite (Negative) Urine Bilirubin (Negative) Urine Urobilinogen (<2.0) mg/dL Ur Leukocyte Esterase (Negative) 07/30/17 07/30/17 07/30/17 Range/Units 09:00 09:00 10:40 WBC (3.8-10.6) k/uL RBC (4.30-5.90) m/uL Hgb (13.0-17.5) gm/dL Hct (39.0-53.0) % MCV (80.0-100.0) fL MCH (25.0-35.0) pg MCHC (31.0-37.0) g/dL RDW (11.5-15.5) % Plt Count (150-450) k/uL Neutrophils % % Lymphocytes % % Monocytes % % Eosinophils % % Basophils % % Neutrophils # (1.3-7.7) k/uL Lymphocytes # (1.0-4.8) k/uL Monocytes # (0-1.0) k/uL Eosinophils # (0-0.7) k/uL Basophils # (0-0.2) k/uL PT 10.2 (9.0-12.0) sec INR 1.0 (<1.2) APTT 22.5 (22.0-30.0) sec Sodium (137-145) mmol/L Potassium (3.5-5.1) mmol/L Chloride (98-107) mmol/L Carbon Dioxide (22-30) mmol/L Anion Gap mmol/L BUN (9-20) mg/dL Creatinine (0.66-1.25) mg/dL Est GFR (CKD-EPI)AfAm (>60 ml/min/1.73 sqM) Est GFR (CKD-EPI)NonAf (>60 ml/min/1.73 sqM) Glucose (74-99) mg/dL Calcium (8.4-10.2) mg/dL Magnesium (1.6-2.3) mg/dL Total Bilirubin (0.2-1.3) mg/dL AST (17-59) U/L ALT (21-72) U/L Alkaline Phosphatase (38-126) U/L Total Creatine Kinase (55-170) U/L CK-MB (CK-2) (0.0-2.4) ng/mL CK-MB (CK-2) Rel Index Troponin I (0.000-0.034) ng/mL NT-Pro-B Natriuret Pep 423 pg/mL Total Protein (6.3-8.2) g/dL Albumin (3.5-5.0) g/dL Amylase (30-110) U/L Lipase (23-300) U/L Urine Color Light Yellow Urine Appearance Clear (Clear) Urine pH 6.5 (5.0-8.0) Ur Specific Boyd 1.008 (1.001-1.035) Urine Protein Negative (Negative) Urine Glucose (UA) Negative (Negative) Urine Ketones Negative (Negative) Urine Blood Negative (Negative) Urine Nitrite Negative (Negative) Urine Bilirubin Negative (Negative) Urine Urobilinogen <2.0 (<2.0) mg/dL Ur Leukocyte Esterase Negative (Negative) - EKG Data EKG Comments: EKG performed at 8:52 normal sinus rhythm with a rate of 61 ID interval 182 QRS 110 QT/QTC 462/465 Disposition Clinical Impression: Chest wall pain, Abdominal muscle strain Disposition: HOME SELF-CARE Condition: Stable Instructions: Chest Wall Pain (ED) Additional Instructions: Please return to the Emergency Department if symptoms worsen or any other concerns. Prescriptions: Acetaminophen-Codeine 300-30mg [Tylenol #3] 1 tab PO Q4H PRN #15 tablet PRN Reason: pain Is patient prescribed a controlled substance at d/c from ED?: Yes If prescribed controlled substance>3 days was MAPS reviewed?: No When asked, does pt state using other controlled substances?: No Referrals: Masoud Omalley MD [Primary Care Provider] - 1-2 days Time of Disposition: 11:20
[2017-07-30 09:25] LABS: Albumin 3.8 g/dL (3.5-5.0); Calcium 8.8 mg/dL (8.4-10.2); Magnesium 2.3 mg/dL (1.6-2.3); Partial Thromboplastin Time 22.5 sec (22.0-30.0); Potassium 4.4 mmol/L (3.5-5.1); Prothrombin Time 10.2 sec (9.0-12.0); Total Bilirubin 0.7 mg/dL (0.2-1.3); Total Protein 6.9 g/dL (6.3-8.2)
[2017-07-30 09:32] LABS: Basophils % (A) 1 %; Eosinophils # (A) 0.2 k/uL (0-0.7); Eosinophils % (A) 3 %; HCT 38.4 % (39.0-53.0); HGB 12.8 gm/dL (13.0-17.5); Lymphocytes # (A) 0.8 k/uL (1.0-4.8); Lymphocytes % (A) 16 %; MCH 30.4 pg (25.0-35.0); MCHC 33.4 g/dL (31.0-37.0); Monocytes # (A) 0.3 k/uL (0-1.0); Monocytes % (A) 6 %; Neutrophils # (A) 3.8 k/uL (1.3-7.7); Neutrophils % (A) 72 %; Platelet Count 166 k/uL (150-450); RBC 4.22 m/uL (4.30-5.90); RDW 14.4 % (11.5-15.5); WBC 5.3 k/uL (3.8-10.6)
--- NOTE | 2017-07-30 09:38 | XR ---
EXAMINATION TYPE: XR chest 2V DATE OF EXAM: 07/30/2017 COMPARISON: 04/05/2017 HISTORY: Shortness of breath TECHNIQUE: Frontal and lateral views of the chest are obtained. FINDINGS: Scattered senescent parenchymal changes noted. No evidence for infiltrate. No evidence for atelectasis. Heart size is stable. Mediastinal structures are stable and grossly unremarkable. No evidence for hilar prominence. Degenerative changes dorsal spine. IMPRESSION: 1. No evidence for acute pulmonary disease.
--- NOTE | 2017-07-30 09:42 | XR ---
EXAMINATION TYPE: XR KUB DATE OF EXAM: 07/30/2017 COMPARISON: NONE HISTORY: Pain TECHNIQUE: Single supine KUB image of the abdomen is obtained FINDINGS: Small bowel demonstrates no evidence for dilatation or air fluid levels. Gas and fecal material is seen in non-distended colon. No convincing evidence for pneumoperitoneum. No unusual calcifications. The lung bases are clear. The osseous structures are intact. IMPRESSION: 1. Overall nonobstructive bowel gas pattern.
[2017-07-30 09:50] LABS: Creatine Kinase MB 1.7 ng/mL (0.0-2.4)
[2017-07-30 09:56] LABS: Troponin I 0.064 ng/mL (0.000-0.034)
--- NOTE | 2017-07-30 10:04 | CT ---
EXAMINATION TYPE: CT abdomen pelvis wo con DATE OF EXAM: 07/30/2017 COMPARISON: NONE INDICATION: Patient complains of LUQ pain. DLP: 1136.4 mGycm, Automated exposure control for dose reduction was used. CONTRAST: 0 mL of Isovue 300. Study performed without Oral Contrast TECHNIQUE: Axial images were obtained from above the diaphragm to the pubic rami in the axial plane a t 5 mm thick sections. Reconstructed images are reviewed on the computer in the coronal plane. FINDINGS: Limited CT sections are obtained the lung bases. Some minimal subsegmental atelectasis in the depend ent lung bases is not excluded. CT ABDOMEN: Liver: Normal Spleen: Normal Pancreas: Normal Adrenal glands: The adrenal glands are normal. Gallbladder: Cholelithiasis is present. Kidneys: No masses are evident. No hydronephrosis is present. No cysts are present. There is a 0.4 cm nonobstructing right renal stone mid right kidney. No hydroureter is evident. Aorta: Vascular calcification is within the aorta. There is fusiform prominence of the mid abdominal aorta with an AP diameter of 2.8 cm. Is terminates above the bifurcation. Inferior vena cava: Normal. CT PELVIS: Loops of bowel within the abdomen and pelvis are normal. Multiple diverticuli are scattered throu gh the sigmoid colon. No acute diverticulitis or pericolonic inflammatory changes are evident. Appendix: Normal as visualized. Urinary bladder: Normal. Genitourinary structures: Prostate is unremarkable. Osseous structures: No suspicious lytic or sclerotic lesions. Facet degenerative changes are in the l ower lumbar spine. Degenerative disc changes are present within the lumbar spine IMPRESSIONS: 1. Diverticulosis without acute diverticulitis. 2. Cholelithiasis.
[2017-07-30 10:16] VITALS: PULSE 55
[2017-07-30 10:55] LABS: Appearance,Urine Clear (Clear); Bilirubin,Urine Negative (Negative); Blood,Urine Negative (Negative); Color,Urine Light Yellow; Glucose,Urine (UA) Negative (Negative); Ketones,Urine Negative (Negative); Leukocyte Esterase,Urine Negative (Negative); Nitrite,Urine Negative (Negative); PH, Urine 6.5 (5.0-8.0); Protein,Urine Negative (Negative); Specific Gravity,Urine 1.008 (1.001-1.035); Urobilinogen,Urine <2.0 mg/dL (<2.0)
[2017-07-30 11:33] VITALS: BP 158/70; TEMP 97.4
== END 2017-07-30 11:32 | disposition home or self-care (01) ==
LOC: EC 08:43
DX: S39.011A Strain of muscle, fascia and tendon of abdomen, initial encounter (principal); R07.89 Other chest pain; I25.119 Atherosclerotic heart disease of native coronary artery with unspecified angina pectoris; E78.5 Hyperlipidemia, unspecified; I25.2 Old myocardial infarction; M19.90 Unspecified osteoarthritis, unspecified site; E11.22 Type 2 diabetes mellitus with diabetic chronic kidney disease; I12.9 Hypertensive chronic kidney disease with stage 1 through stage 4 chronic kidney disease, or unspecified chronic kidney disease; N18.3 Chronic kidney disease, stage 3 (moderate); H40.9 Unspecified glaucoma; Z85.46 Personal history of malignant neoplasm of prostate; Z87.891 Personal history of nicotine dependence; Z79.84 Long term (current) use of oral hypoglycemic drugs; Z79.899 Other long term (current) drug therapy; Z88.5 Allergy status to narcotic agent; Z88.8 Allergy status to other drugs, medicaments and biological substances; Z95.1 Presence of aortocoronary bypass graft; Z95.810 Presence of automatic (implantable) cardiac defibrillator; X50.9XXA Other and unspecified overexertion or strenuous movements or postures, initial encounter
CPT/HCPCS: 36415; 93005; 83880; 80053; 82150; 82550; 82553; 83690; 83735; 84484; 85025; 85610; 85730; 81003; 71046; 74018; 74176; 99284; 96374; 96375; J2270; J2405

== ENCOUNTER → 2018-08-06 | Outpatient (CLI) | payer MEDICARE, BC ==
[2018-08-06 20:44] LABS: Anion Gap 9.1 mmol/L (4.00-12.00); Calcium 8.8 mg/dL (8.7-10.3); Carbon Dioxide 24.9 mmol/L (21.6-31.8); Potassium 4.4 mmol/L (3.5-5.5)
[2018-08-06 20:45] LABS: Magnesium 2.1 mg/dL (1.5-2.4)
== END | disposition home or self-care (01) ==
LOC: LABWHC1 10:33
PROVIDERS: ATTEND Internal Medicine Interventional Cardiology
DX: I10 Essential (primary) hypertension (principal)
CPT/HCPCS: 36415; 80048; 83735

== ENCOUNTER 2019-03-21 23:58 | Observation (INO) | payer MEDICARE, BC ==
[2019-03-22 01:02] LABS: Partial Thromboplastin Time 24.2 sec (22.0-30.0); Prothrombin Time 10.3 sec (9.0-12.0)
[2019-03-22 01:04] LABS: Basophils % (A) 1 %; Eosinophils # (A) 0.4 k/uL (0-0.7); Eosinophils % (A) 4 %; HCT 40.4 % (39.0-53.0); HGB 13.4 gm/dL (13.0-17.5); Lymphocytes # (A) 0.8 k/uL (1.0-4.8); Lymphocytes % (A) 10 %; MCH 30.3 pg (25.0-35.0); MCHC 33.1 g/dL (31.0-37.0); MCV 91.5 fL (80.0-100.0); Mean Platelet Volume 8.4; Monocytes # (A) 0.5 k/uL (0-1.0); Monocytes % (A) 6 %; Neutrophils # (A) 6.7 k/uL (1.3-7.7); Neutrophils % (A) 78 %; Platelet Count 165 k/uL (150-450); RBC 4.41 m/uL (4.30-5.90); RDW 15.6 % (11.5-15.5); WBC 8.6 k/uL (3.8-10.6)
[2019-03-22 01:15] LABS: Albumin 3.9 g/dL (3.5-5.0); Calcium 9.2 mg/dL (8.4-10.2); Magnesium 2.1 mg/dL (1.6-2.3); Potassium 4.2 mmol/L (3.5-5.1); Total Bilirubin 0.8 mg/dL (0.2-1.3); Total Protein 7.6 g/dL (6.3-8.2)
--- NOTE | 2019-03-22 01:20 | XR ---
EXAMINATION TYPE: XR chest 2V DATE OF EXAM: 03/22/2019 COMPARISON: 07/30/2017 HISTORY: Left sided chest pain TECHNIQUE: 2 views FINDINGS: There is coarsening of the interstitial markings. There is left axillary pacemaker. There a re chest leads. There is no definite heart failure. There is no evidence of pleural effusion. IMPRESSION: Lung markings increased compared to last exam. Inspiration decreased compared to last exa m. No obvious heart failure. No pulmonary consolidation. There is probably some mild atelectasis left lower lobe that is new compared to old exam.
--- NOTE | 2019-03-22 03:38 | ED ---
SOB HPI - General Chief Complaint: Shortness of Breath Stated Complaint: shortness of breath, chest pain Time Seen by Provider: 03/22/19 00:24 Source: patient Mode of arrival: wheelchair Limitations: no limitations - History of Present Illness Initial Comments: Ben is a 78-year-old gentleman with extensive past medical history significant for significant cardiac disease patient presents the ER today for evaluation of shortness of breath and chest pain. Patient reports he's been progressively more short of breath, tonight he couldn't sleep due to the shortness of breath. Patient reports he feels that he developed some discomfort across his chest due to how hard he's been breathing. Denies any fevers chills or productive cough. Denies any recent nausea or vomiting. Denies cough or congestion. Reports he is a former cigarette smoker but has no history of COPD doesn't require breathing treatments. Patient does have a history of pulmonary embolism in the past but states he's been compliant with his Plavix. - Related Data Home Medications Medication Instructions Recorded Confirmed Furosemide [Lasix] 20 mg PO AC-SUPPER 10/18/16 07/30/17 Gabapentin [Neurontin] 300 mg PO BID 10/18/16 07/30/17 Latanoprost [Xalatan 0.005%] 1 drop BOTH EYES HS 10/18/16 07/30/17 Pilocarpine 1% Ophth Soln [Isopto 1 drops RIGHT EYE DAILY 10/18/16 07/30/17 Carpine 1%] metFORMIN HCL ER [Glucophage Xr] 500 mg PO AC-SUPPER 10/18/16 07/30/17 Dorzolamide-Timol 2.23%/0.68% 1 drop RIGHT EYE BID 12/22/16 07/30/17 [Cosopt] Atorvastatin [Lipitor] 40 mg PO AC-SUPPER 01/07/17 07/30/17 Brimonidine Tartrate [Alphagan P 1 drops RIGHT EYE DAILY 01/07/17 07/30/17 0.15% Ophth Soln] Calcium Polycarbophil [Fibercon] 625 mg PO BID 01/07/17 07/30/17 Gabapentin [Neurontin] 300 mg PO DAILY PRN 04/05/17 07/30/17 Naproxen Sodium [Anaprox] 275 mg PO BID PRN 04/05/17 07/30/17 Previous Rx's Medication Instructions Recorded Aspirin EC [Ecotrin Low Dose] 81 mg PO DAILY #100 tablet. 06/24/14 Clopidogrel [Plavix] 75 mg PO DAILY #30 tab 10/22/16 Nitroglycerin Sl Tabs [Nitrostat] 0.4 mg SUBLINGUAL Q5M PRN tab 11/21/16 Carvedilol [Coreg] 6.25 mg PO BID-W/MEALS tab 01/23/17 Furosemide [Lasix] 40 mg PO DAILY tab 01/23/17 Losartan [Cozaar] 50 mg PO DAILY #30 tab 01/23/17 Acetaminophen-Codeine 300-30mg 1 tab PO Q4H PRN #15 tablet 07/30/17 [Tylenol #3] Allergies Allergy/AdvReac Type Severity Reaction Status Date / Time spironolactone Allergy Unknown Verified 03/22/19 00:03 hydrocodone bitartrate AdvReac Confusion Verified 03/22/19 00:03 [From Vicodin] Review of Systems ROS Statement: Those systems with pertinent positive or pertinent negative responses have been documented in the HPI. ROS Other: All systems not noted in ROS Statement are negative. Past Medical History Past Medical History: Coronary Artery Disease (CAD), Cancer, Chest Pain / Angina, Diabetes Mellitus, Eye Disorder, Hyperlipidemia, Hypertension, Myocardial Infarction (RI), Osteoarthritis (OA), Pneumonia, Prostate Disorder, Pulmonary Embolus (PE), Renal Disease Additional Past Medical History / Comment(s): See Dr Chavez's H&P. NIDDM type II, chronic kidney disease stage III, R eye glaucoma, pulmonary emboli L lung, prostate cancer with surgery, chronic haider/cervical and shoulder pain, back pain, diverticular dx, past gout. Last Myocardial Infarction Date:: 10/18/16 History of Any Multi-Drug Resistant Organisms: None Reported Past Surgical History: AICD, Back Surgery, Heart Catheterization, Heart Catheterization With Stent, Hernia Repair, Pacemaker, Prostate Surgery Additional Past Surgical History / Comment(s): CARDIOVERSION/WORE LEFE VEST UNTIL AICD IMPLANTED 01-10-17.. hx: lumbar surgery twice, cervical epidural injections, bilateral inguinal hernia repairs, TURP, colonoscopy, hemorrhoidectomy, bilateral cataracts removed, pacemaker/defib, Past Anesthesia/Blood Transfusion Reactions: No Reported Reaction Date of Last Stent Placement:: 10/18/16 Type of Cardiac Device: AICD Device Placement Date:: 01-10-17 Past Psychological History: No Psychological Hx Reported Smoking Status: Former smoker Past Alcohol Use History: None Reported Past Drug Use History: None Reported - Past Family History Mother Family Medical History: Unable to Obtain Additional Family Medical History / Comment(s): Mother of unknown cause. Father Family Medical History: Unable to Obtain Additional Family Medical History / Comment(s): Father of unknown cause. General Exam - General Exam Comments Initial Comments: Physical Exam GENERAL: Chronically ill appearing HENT: Normocephalic, Atraumatic. EYES: PERRL, EOMI PULMONARY: Tachypnea CARDIOVASCULAR: RRR Lower extremity edema ABDOMEN: Soft and nontender with normal bowel sounds. SKIN: Skin is clear with no lesions or rashes and otherwise unremarkable. : Deferred NEUROLOGIC: Patient is alert and oriented x3. Moving all extremities spontaneously MUSCULOSKELETAL: Normal extremities with adequate strength and full range of motion. PSYCHIATRIC: Normal psychiatric evaluation. Limitations: no limitations Course Vital Signs 03/22/19 03/22/19 03/22/19 00:01 02:40 04:47 Temperature 97.9 F Pulse Rate 79 60 62 Respiratory 38 H 18 18 Rate Blood Pressure 185/82 157/75 136/64 O2 Sat by Pulse 99 97 100 Oximetry 03/22/19 06:44 Temperature Pulse Rate 62 Respiratory 18 Rate Blood Pressure 140/62 O2 Sat by Pulse 96 Oximetry Medical Decision Making - Medical Decision Making The patient was seen and evaluated history is obtained from the patient and at bedside This is a elderly gentleman with multiple medical comorbidities presenting to the ER tachypneic with mild hypoxia he was initially started on supplemental oxygen for work of breathing. He has no wheezing. He does have a history of pulmonary embolism and a history of heart failure. Labs and chest x-rays were obtained, labs with mildly elevated BNP, chronic kidney disease, due to chronic kidney disease we cannot scan for possible pulmonary embolism. Patient's respiratory effort has improved with supplemental oxygen he still remains slightly tachypneic but not hypoxic on 2 L nasal cannula. Chest x-ray was read as negative however I have concern for retrocardiac pneumonia. This was discussed with the admitting physician Dr. Cisse who will evaluate patient does not have any leukocytosis or fever therefore pneumonia less likely. Dr. Cisse does agree with plan for admission for elderly gentleman multiple comorbidities and acute shortness of breath with tachypnea and hypoxia. - Lab Data Result diagrams: 03/22/19 00:35 03/22/19 00:35 Lab Results 03/22/19 03/22/19 03/22/19 Range/Units 00:35 00:35 00:35 WBC 8.6 (3.8-10.6) k/uL RBC 4.41 (4.30-5.90) m/uL Hgb 13.4 (13.0-17.5) gm/dL Hct 40.4 (39.0-53.0) % MCV 91.5 (80.0-100.0) fL MCH 30.3 (25.0-35.0) pg MCHC 33.1 (31.0-37.0) g/dL RDW 15.6 H (11.5-15.5) % Plt Count 165 (150-450) k/uL Neutrophils % 78 % Lymphocytes % 10 % Monocytes % 6 % Eosinophils % 4 % Basophils % 1 % Neutrophils # 6.7 (1.3-7.7) k/uL Lymphocytes # 0.8 L (1.0-4.8) k/uL Monocytes # 0.5 (0-1.0) k/uL Eosinophils # 0.4 (0-0.7) k/uL Basophils # 0.0 (0-0.2) k/uL PT (9.0-12.0) sec INR (<1.2) APTT (22.0-30.0) sec Sodium 143 (137-145) mmol/L Potassium 4.2 (3.5-5.1) mmol/L Chloride 106 (98-107) mmol/L Carbon Dioxide 28 (22-30) mmol/L Anion Gap 9 mmol/L BUN 35 H (9-20) mg/dL Creatinine 2.28 H (0.66-1.25) mg/dL Est GFR (CKD-EPI)AfAm 31 (>60 ml/min/1.73 sqM) Est GFR (CKD-EPI)NonAf 27 (>60 ml/min/1.73 sqM) Glucose 153 H (74-99) mg/dL Calcium 9.2 (8.4-10.2) mg/dL Magnesium 2.1 (1.6-2.3) mg/dL Total Bilirubin 0.8 (0.2-1.3) mg/dL AST 28 (17-59) U/L ALT 19 (4-49) U/L Alkaline Phosphatase 133 H (38-126) U/L Troponin I (0.000-0.034) ng/mL NT-Pro-B Natriuret Pep 824 pg/mL Total Protein 7.6 (6.3-8.2) g/dL Albumin 3.9 (3.5-5.0) g/dL 03/22/19 03/22/19 Range/Units 00:35 00:35 WBC (3.8-10.6) k/uL RBC (4.30-5.90) m/uL Hgb (13.0-17.5) gm/dL Hct (39.0-53.0) % MCV (80.0-100.0) fL MCH (25.0-35.0) pg MCHC (31.0-37.0) g/dL RDW (11.5-15.5) % Plt Count (150-450) k/uL Neutrophils % % Lymphocytes % % Monocytes % % Eosinophils % % Basophils % % Neutrophils # (1.3-7.7) k/uL Lymphocytes # (1.0-4.8) k/uL Monocytes # (0-1.0) k/uL Eosinophils # (0-0.7) k/uL Basophils # (0-0.2) k/uL PT 10.3 (9.0-12.0) sec INR 1.0 (<1.2) APTT 24.2 (22.0-30.0) sec Sodium (137-145) mmol/L Potassium (3.5-5.1) mmol/L Chloride (98-107) mmol/L Carbon Dioxide (22-30) mmol/L Anion Gap mmol/L BUN (9-20) mg/dL Creatinine (0.66-1.25) mg/dL Est GFR (CKD-EPI)AfAm (>60 ml/min/1.73 sqM) Est GFR (CKD-EPI)NonAf (>60 ml/min/1.73 sqM) Glucose (74-99) mg/dL Calcium (8.4-10.2) mg/dL Magnesium (1.6-2.3) mg/dL Total Bilirubin (0.2-1.3) mg/dL AST (17-59) U/L ALT (4-49) U/L Alkaline Phosphatase (38-126) U/L Troponin I <0.012 (0.000-0.034) ng/mL NT-Pro-B Natriuret Pep pg/mL Total Protein (6.3-8.2) g/dL Albumin (3.5-5.0) g/dL - EKG Data -: EKG Interpreted by Me EKG Comments: KG was obtained due to complaint of shortness of breath and chest pain, EKG was obtained at 12:14 AM, rate 68 rhythm is sinus normal axis, normal intervals, RI 182, care is 112, QTC is 476, there is flattening of the T waves in the lateral leads, no acute ST elevations or depressions no evidence of acute ischemia or infarction. Disposition Clinical Impression: CHF exacerbation, Dyspnea, Chest pain Disposition: ADMITTED IP TO THIS HOSP Condition: Serious
[2019-03-22] MEDS: FUROSEMIDE 10 MG/ML 4 ML VIAL IV SCH ×2 (06:42→17:44)
[2019-03-22 08:18] VITALS: RESP 18
[2019-03-22 11:35] LABS: Glucose,Whole Blood 130 mg/dL (75-99)
[2019-03-22] MEDS ORDERED: GABAPENTIN 300 MG CAP PO SCH (11:45)
[2019-03-22] MEDS: CLOPIDOGREL 75 MG TAB PO SCH (11:56)
[2019-03-22] MEDS: ASPIRIN 81 MG PO SCH (11:56)
[2019-03-22] MEDS: CARVEDILOL 6.25 MG TAB PO SCH ×2 (11:56→17:44)
--- NOTE | 2019-03-22 13:00 | ECHOF ---
Referral Reason:sob, cp MEASUREMENTS -------- HEIGHT: 177.8 cm WEIGHT: 105.2 kg BP: RVIDd: 3.4 cm (< 3.3) IVSd: 1.7 cm (0.6 - 1.1) LVIDd: 5.6 cm (3.9 - 5.3) LVPWd: 1.7 cm (0.6 - 1.1) IVSs: 1.8 cm LVIDs: 4.8 cm LVPWs: 1.7 cm LAESV Index (A-L): 43.39 ml/m Ao Diam: 2.8 cm (2.0 - 3.7) AV Cusp: 2.0 cm (1.5 - 2.6) LA Diam: 3.8 cm (2.7 - 3.8) MV EXCURSION: 12.162 mm (> 18.000) MV EF SLOPE: 58 mm/s (70 - 150) EPSS: 1.5 cm MV E Dread: 0.51 m/s MV DecT: 338 ms MV A Dread: 0.81 m/s MV E/A Ratio: 0.63 RAP: 15.00 mmHg RVSP: 36.87 mmHg FINDINGS -------- Sinus rhythm. This was a technically difficult study with suboptimal apical views. The left ventricular size is normal. There is mild concentric left ventricular hypertrophy. There is severe global hypokinesis of LV . Overall left ventricular systolic function is severely impair ed with, an EF between 25 - 30 %. Increased Lap Grade II Diastolic Dysfunction. The right ventricle is mildly enlarged. LA is moderately dilated 34-39 ml/m2 The right atrium was not well visualized. 5.0mg of Lumason was utilized for enhancement of images Interatrial and interventricular septum intact. The aortic valve was not well visualized. There is no evidence of aortic regurgitation. There is no evidence of aortic stenosis. Mild mitral regurgitation is present. Mild tricuspid regurgitation present. There is mild pulmonary hypertension. The right ventricular systolic pressure, as measured by Doppler, is 36.87mmHg. Trace/mild (physiologic) pulmonic regurgitation. The aortic root size is normal. The inferior vena cava is dilated with poor inspiratory collapse which is consistent with estimated r ight atrial pressure of 20 mmHg. There is no pericardial effusion. CONCLUSIONS -------- 1. Sinus rhythm. 2. This was a technically difficult study with suboptimal apical views. 3. The left ventricular size is normal. 4. There is mild concentric left ventricular hypertrophy. 5. There is severe global hypokinesis of LV . 6. Overall left ventricular systolic function is severely impaired with, an EF between 25 - 30 %. 7. Increased Lap Grade II Diastolic Dysfunction. 8. The right ventricle is mildly enlarged. 9. LA is moderately dilated 34-39 ml/m2 10. The right atrium was not well visualized. 11. 5.0mg of Lumason was utilized for enhancement of images 12. Interatrial and interventricular septum intact. 13. The aortic valve was not well visualized. 14. There is no evidence of aortic regurgitation. 15. There is no evidence of aortic stenosis. 16. Mild mitral regurgitation is present. 17. Mild tricuspid regurgitation present. 18. There is mild pulmonary hypertension. 19. The right ventricular systolic pressure, as measured by Doppler, is 36.87mmHg. 20. Trace/mild (physiologic) pulmonic regurgitation. 21. The aortic root size is normal. 22. The inferior vena cava is dilated with poor inspiratory collapse which is consistent with estimat ed right atrial pressure of 20 mmHg. 23. There is no pericardial effusion. B[employer]ING BALL FINISHER: Noreen Castillo RDCS
--- NOTE | 2019-03-22 13:47 | P.CRDCN ---
History of Present Illness History of present illness: HISTORY OF PRESENTING ILLNESS This is a pleasant 78-year-old male past medical history significant for coronary artery disease s/p PCI, ischemic cardiomyopathy status post AICD pl acement, ventricular tachycardia, chronic systolic heart failure, diabetes mellitus, hypertension, dyslipidemia and history of pulmonary embolism in the past. He follows in the office with Dr. Zuñiga. We have been asked to see in consultation for shortness of breath. He states Friday night is when he first started feeling short of breath. He was sitting down watching a football game he started feeling like he couldn't catch his breath. It lasted around an hour and improved gradually on its own. Yesterday he again felt short of breath like he couldn't catch his breath all day. He also developed some pain in his chest at times when he was struggling to breath. He has been taking an additional lasix over the last week. Echocardiogram obtained on this admission reveals impaired LV systolic function with EF 25-30%, global hypokinesia, grade II diastolic dysfunction, moderately dilated LA, mild MR, mild TR and mild pulmonary hypertension with RVSP of 36 mmHG. No change from echo from 2017. Most recent catheterization was 2017 revealing RCA totally occluded, left main with mild less than 20% stenosis, LAD with 50% narrowing in the mid portions and circumflex with a 40% mid lesion. At that time he underwent successful PCI with WESTLEY to the mid LAD. DIAGNOSTICS EKG reveals sinus mechanism with ST change and T-wave inversion inferior laterally. Consistent with previous EKG's. No acute changes. Chest xray with decreased inspiration, no heart failure, no pulmonary consolidation, mild atelectasis left lower lobe. Laboratory reviewed, d-dimer 1.12, sodium 143, potassium 4.2, creatinine 2.28, magnesium 2.1, troponin negative x1 and NTproBNP 824. Current cardiac medications include aspirin 81 mg daily, atorvastatin 40 mg daily, coreg 6.25 mg BID, plavix 75 mg daily, lasix 20 mg TID and losartan 50 mg daily. REVIEW OF SYSTEMS At the time of my exam: CONSTITUTIONAL: Denies fever or chills. CARDIOVASCULAR: Complains of shortness of breath. Denies chest pain, orthopnea, PND or palpitations. RESPIRATORY: Denies cough. GASTROINTESTINAL: Denies abdominal pain, diarrhea, constipation, nausea or vomiting. MUSCULOSKELETAL: Denies myalgias. NEUROLOGIC: Denies numbness, tingling or weakness. ENDOCRINE: Denies fatigue, weight change, polydipsia or polyurina. GENITOURINARY: Denies burning, hematuria or urgency with micturation. HEMATOLOGIC: Denies history of anemia or bleeding. PHYSICAL EXAMINATION Blood pressure 157/78 heart rate 68 afebrile and maintaining oxygen saturation on room air. CONSTITUTIONAL: No apparent distress. HEENT: Head is normocephalic. Pupils are equal, round. Sclerae anicteric. Mucous membranes of the mouth are moist. No JVD. No carotid bruit. CHEST EXAMINATION: Lungs are clear to auscultation. No chest wall tenderness is noted on palpation or with deep breathing. HEART EXAMINATION: Regular rate and rhythm. S1, S2 heard. No murmurs, gallops or rub. ABDOMEN: Soft, nontender. Positive bowel sounds. EXTREMITIES: 2+ peripheral pulses, no lower extremity edema and no calf tenderness. NEUROLOGIC EXAMINATION: Patient is awake, alert and oriented x3. ASSESSMENT Acute on chronic systolic heart failure, mild Acute on chronic renal failure Ischecmic cardiomyopathy s/p AICD placement History of PE Hypertension Dyslipidemia Diabetes mellitus PLAN Obtain VQ scan to rule out a PE. Continue IV diuresis, although clinically he does not appear to be very volume overloaded. However, he is short of breath on exam. Follow renal function and electrolytes in the morning. Document accurate intake and output along with daily weights. Further recommendations to follow based on clinical course. Thank you kindly for this consultation. Nurse Practitioner note has been reviewed, I agree with a documented findings and plan of care. Patient was seen and examined. Past Medical History Past Medical History: Coronary Artery Disease (CAD), Cancer, Chest Pain / Angina, Heart Failure, COPD, Diabetes Mellitus, Eye Disorder, Hyperlipidemia, Hypertension, Myocardial Infarction ([place]), Osteoarthritis (OA), Pneumonia, Prostate Disorder, Pulmonary Embolus (PE), Renal Disease Additional Past Medical History / Comment(s): NIDDM type II, chronic kidney disease stage III, R eye glaucoma, tracheobronchitis, ischemic cardiomyopathy with AICD, pulmonary emboli L lung, prostatitis, prostate cancer with surgery, UTI, chronic haider/cervical and bilateral shoulder pain, back pain, gout, fatty tu mor R back Last Myocardial Infarction Date:: 10/18/16 History of Any Multi-Drug Resistant Organisms: None Reported Past Surgical History: AICD, Back Surgery, Heart Catheterization, Heart Catheterization With Stent, Hernia Repair, Pacemaker, Prostate Surgery Additional Past Surgical History / Comment(s): CARDIOVERSION/WORE LEFE VEST UNTIL AICD/pacer IMPLANTED 01-10-17.. lumbar surgery twice, cervical epidural injections, bilateral inguinal hernia repairs, TURP, colonoscopy, bilateral cataract removals. Past Anesthesia/Blood Transfusion Reactions: No Reported Reaction Date of Last Stent Placement:: 10/18/16 Type of Cardiac Device: AICD Device Placement Date:: 01-10-17 Smoking Status: Former smoker - Past Family History Mother Family Medical History: Unable to Obtain Additional Family Medical History / Comment(s): Mother of unknown cause. Father Family Medical History: Unable to Obtain Additional Family Medical History / Comment(s): Father of unknown cause. Medications and Allergies Home Medications Medication Instructions Recorded Confirmed Type Furosemide [Lasix] 20 mg PO TID 10/18/16 03/22/19 History Latanoprost [Xalatan 0.005%] 1 drop BOTH EYES HS 10/18/16 03/22/19 History metFORMIN HCL ER [Glucophage Xr] 500 mg PO DAILY@1630 10/18/16 03/22/19 History Nitroglycerin Sl Tabs [Nitrostat] 0.4 mg SUBLINGUAL Q5M PRN tab 11/21/16 03/22/19 Rx Atorvastatin [Lipitor] 40 mg PO DAILY@1630 01/07/17 03/22/19 History Calcium Polycarbophil [Fibercon] 625 mg PO BID 01/07/17 03/22/19 History Gabapentin [Neurontin] 300 mg PO TID 04/05/17 03/22/19 History Naproxen Sodium [Anaprox] 275 mg PO BID 04/05/17 03/22/19 History Aspirin EC [Ecotrin Low Dose] 81 mg PO DAILY@0800 03/22/19 03/22/19 History Carvedilol [Coreg] 6.25 mg PO TID 03/22/19 03/22/19 History Clopidogrel [Plavix] 75 mg PO DAILY@0800 03/22/19 03/22/19 History Losartan [Cozaar] 50 mg PO DAILY@0800 03/22/19 03/22/19 History Allergies Allergy/AdvReac Type Severity Reaction Status Date / Time spironolactone Allergy Unknown Verified 03/22/19 10:56 hydrocodone bitartrate AdvReac Confusion Verified 03/22/19 10:56 [From Vicodin] Physical Exam Vitals: Vital Signs Temp Pulse Pulse Resp BP BP Pulse Ox 03/22/19 11:27 97.3 F L 68 18 157/78 96 03/22/19 08:00 98.1 F 66 18 134/74 95 03/22/19 07:58 20 03/22/19 06:44 62 18 140/62 96 03/22/19 04:47 62 18 136/64 100 03/22/19 02:40 60 18 157/75 97 03/22/19 00:01 97.9 F 79 38 H 185/82 99 Intake and Output 03/21/19 03/22/19 03/22/19 22:59 06:59 14:59 Other: Voiding Method Toilet Urinal Weight 105.233 kg 105.233 kg Results 03/22/19 00:35 03/22/19 00:35 Cardiac Enzymes 03/22/19 03/22/19 Range/Units 00:35 00:35 AST 28 (17-59) U/L Troponin I <0.012 (0.000-0.034) ng/mL Coagulation 03/22/19 Range/Units 00:35 PT 10.3 (9.0-12.0) sec APTT 24.2 (22.0-30.0) sec CBC 03/22/19 Range/Units 00:35 WBC 8.6 (3.8-10.6) k/uL RBC 4.41 (4.30-5.90) m/uL Hgb 13.4 (13.0-17.5) gm/dL Hct 40.4 (39.0-53.0) % Plt Count 165 (150-450) k/uL Comprehensive Metabolic Panel 03/22/19 Range/Units 00:35 Sodium 143 (137-145) mmol/L Potassium 4.2 (3.5-5.1) mmol/L Chloride 106 (98-107) mmol/L Carbon Dioxide 28 (22-30) mmol/L BUN 35 H (9-20) mg/dL Creatinine 2.28 H (0.66-1.25) mg/dL Glucose 153 H (74-99) mg/dL Calcium 9.2 (8.4-10.2) mg/dL AST 28 (17-59) U/L ALT 19 (4-49) U/L Alkaline Phosphatase 133 H (38-126) U/L Total Protein 7.6 (6.3-8.2) g/dL Albumin 3.9 (3.5-5.0) g/dL Current Medications Generic Name Dose Route Start Last Admin Trade Name Freq PRN Reason Stop Dose Admin Aspirin 81 mg 03/22/19 10:30 Aspirin PO DAILY [facility] Atorvastatin Calcium 40 mg 03/22/19 17:30 Lipitor PO AC-SUPPER [facility] Carvedilol 6.25 mg 03/22/19 10:30 Coreg PO BID-W/MEALS [facility] Clopidogrel Bisulfate 75 mg 03/22/19 10:30 Plavix PO DAILY [facility] Furosemide 40 mg 03/22/19 06:30 03/22/19 06:42 Lasix IV 40 mg Q12H [facility] Administration Intake and Output 03/21/19 03/22/19 03/22/19 22:59 06:59 14:59 Other: Voiding Method Toilet Urinal Weight 105.233 kg 105.233 kg Patient Weight 03/23/19 06:59 Weight 105.233 kg 03/22/19 00:35 03/22/19 00:35
--- NOTE | 2019-03-22 15:14 | CONS ---
CONSULTATION REASON FOR CONSULT: Renal failure. HISTORY OF PRESENT ILLNESS: The patient is a 78-year-old male who was admitted to the hospital with complaints of increasing shortness of breath as well as dyspnea on exertion and orthopnea for the last few weeks. He denies any significant chest pains. Patient denies any prior history of kidney diseases. His chest x-ray shows evidence of pulmonary vascular congestion. Currently patient is being diuresed. His creatinine was 2.28 mg/dL today. Review of previous labs shows a creatinine of 2.[address] back to July of 2018 as well as July of 2017. Patient states he has not seen a property claim rep previously. There is no history of use of NSAIDs. Patient was maintained on angiotensin receptor blockers and diuretics prior to admission. I do see Naprosyn on his med list as well. PAST MEDICAL HISTORY: Hypertension, osteoarthritis, COPD, coronary artery disease, ischemic cardiomyopathy, history of ventricular tachycardia, type 2 diabetes, history of PE, dyslipidemia, ejection fraction 25%-30% percent. PAST SURGICAL HISTORY: Coronary stenting, cardiac catheterization, hernia repair, pacemaker placement, AICD, back surgery, a bilateral inguinal hernia repair, colonoscopy, cataract surgery. SOCIAL HISTORY: Negative for smoking, patient is a former smoker. No history of drug abuse or alcohol abuse. MEDICATIONS: At home included Lasix 20 mg t.i.d., metformin, Lipitor, FiberCon, Neurontin, Anaprox, Coreg, Plavix, Cozaar, aspirin, ALLERGIES: Include SPIRONOLACTONE and VICODIN. REVIEW OF SYSTEMS: As per HPI. Other systems negative. PHYSICAL EXAMINATION: On examination, patient is comfortable, awake, alert, oriented x3, not in any acute distress. Blood pressure is 157/78, heart rate 68 per minute, he is afebrile. Examination of the heart S1, S2. Examination of the lungs, bilateral breath sounds are heard. Decreased breath sounds at the bases. ABDOMEN: Soft, non-tender. Examination of lower extremities shows edema 1+ bilaterally. WEATHER ANALYST exam is grossly intact. LABS: Show sodium of 143, potassium 4.2, chloride 106, CO2 is 28, BUN 35, creatinine 2.28. UA is not available. Hemoglobin 13.4 g/dL. ASSESSMENT: 1. 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 Current GFR at about 27 mL/minute. Patient's previous creatinine has been at 1.9-2 mg/dL all the way back to July of 2017. I will check a urinalysis and will check an ultrasound of the kidneys. 2. Volume overload, currently being diuresed. 3. Cardiomyopathy, ejection fraction 25%-30%. 4. Congestive heart failure, acute on top of chronic, mainly systolic, slowly improving. 5. Coronary artery disease with history of coronary artery stenting. 6. Type 2 diabetes. PLAN: Check urinalysis, check ultrasound of the kidneys. Continue with current dose of Lasix. Okay to resume Neurontin. However, I would keep it as twice a day rather than t.i.d. given his stage 4 kidney disease. Thank you for this consultation. Will continue to follow the patient with you during his hospitalization. MMREYL / IJN: [id number] /
--- NOTE | 2019-03-22 15:15 | NM ---
EXAMINATION TYPE: NM pul vent and perfuse DATE OF EXAM: 03/22/2019 COMPARISON: Chest x-ray of the same date HISTORY: Shortness of breath with elevated d-dimer. TECHNIQUE: Utilizing inhalation of 70.8 mCi Tc 99m DTPA aerosol and intravenous injection of 4.74 mC i of Tc 99m MAA, ventilation and perfusion images are acquired post injection in multiple projections . FINDINGS: There is a small wedge-shaped matched defect in the superior segment of the right lower lobe and matc hed defect in the basilar segment of the right lower lobe. Findings are greater on ventilation than p erfusion. Ventilation is somewhat diminished throughout the lungs in comparison to perfusion. Matched defect is also seen at the left lung base. IMPRESSION: Intermediate probability for pulmonary embolism with multiple matched defects. Defects are greater on ventilation and perfusion favoring respiratory etiology rather than pulmonary embolus.
[2019-03-22 15:18] VITALS: BMI 33.3
[2019-03-22] MEDS ORDERED: ACETAMINOPHEN TAB 325 MG TAB PO PRN (15:27)
--- NOTE | 2019-03-22 15:54 | US ---
EXAMINATION TYPE: US kidneys/renal and bladder DATE OF EXAM: 03/22/2019 COMPARISON: CT abdomen pelvis dated 07/30/2017 CLINICAL HISTORY: Renal failure. EXAM MEASUREMENTS: Right Kidney: 10.6 x 5.2 x 5.3 cm Left Kidney: 10.9 x 4.7 x 4.6 cm Right Kidney: No hydronephrosis or masses seen Left Kidney: No hydronephrosis or masses seen Bladder: not distended, not visualized Very mild bilateral cortical renal thinning is seen. There is no evidence for hydronephrosis at this point in time. No nephrolithiasis is seen. No masses are identified. The urinary bladder is nondis tended and not visualized. IMPRESSION: Very mild bilateral cortical renal thinning, sequela of medical renal disease. No hydrone phrosis. Urinary bladder is nondistended and not visualized.
[2019-03-22 16:29] LABS: Glucose,Whole Blood 159 mg/dL (75-99)
[2019-03-22] MEDS ORDERED: ATORVASTATIN 40 MG TAB PO SCH (17:30)
--- NOTE | 2019-03-22 18:44 | P.HPIM ---
History of Present Illness H&P Date: 03/22/19 Chief Complaint: Chest pain, shortness of breath 78-year-old male with PMH of CAD status post PCI, ischemic cardio myopathy status post AICD, ventricular tachycardia, systolic heart failure, diabetes mellitus, hypertension, dyslipidemia, history of PE in the past presents the ED for chest pain and shortness of breath. Patient states that he has been feeling short of breath since his pacemaker and defibrillator placement 2 years ago. His shortness of breath is gradually been getting worse, especially with exertion. On Friday night he was too short of breath to sit down and watch Friday night football. When this continued into Friday, this pocket him to come to the ED. Patient reports chest soreness but attributes that to the increased work of breathing. He denies any headache, lower extremity edema, nausea or vomiting, fever or chills, cough, palpitations, changes in urination or bowel habits. No changes in appetite or weight. He denies any dizziness, numbness/weakness/tingling of the extremities. In the ED, his vital signs were stable. CBC and coagulation panel was negative. CMP showed BUN 35, creatinine 2.28, glucose 153, alkaline phosphatase 133. Troponin was less than 0.012, EKG showing normal sinus rhythm with T-wave abnormalities. BNP was 824, chest x-ray showing increased lung markings. Patient is admitted for chest pain, rule out acute coronary syndrome, cardiology is consulted. Review of Systems Pertinent positives and negatives as discussed in HPI, a complete review of systems was performed and all other systems are negative. Past Medical History Past Medical History: Coronary Artery Disease (CAD), Cancer, Chest Pain / Ang jade, Heart Failure, COPD, Diabetes Mellitus, Eye Disorder, Hyperlipidemia, Hypertension, Myocardial Infarction ([place]), Osteoarthritis (OA), Pneumonia, Prostate Disorder, Pulmonary Embolus (PE), Renal Disease Additional Past Medical History / Comment(s): NIDDM type II, chronic kidney disease stage III, R eye glaucoma, tracheobronchitis, ischemic cardiomyopathy with AICD, pulmonary emboli L lung, prostatitis, prostate cancer with surgery, UTI, chronic haider/cervical and bilateral shoulder pain, back pain, gout, fatty tumor R back Last Myocardial Infarction Date:: 10/18/16 History of Any Multi-Drug Resistant Organisms: None Reported Past Surgical History: AICD, Back Surgery, Heart Catheterization, Heart Catheterization With Stent, Hernia Repair, Pacemaker, Prostate Surgery Additional Past Surgical History / Comment(s): CARDIOVERSION/WORE LEFE VEST UNTIL AICD/pacer IMPLANTED 01-10-17.. lumbar surgery twice, cervical epidural injections, bilateral inguinal hernia repairs, TURP, colonoscopy, bilateral cataract removals. Past Anesthesia/Blood Transfusion Reactions: No Reported Reaction Date of Last Stent Placement:: 10/18/16 Type of Cardiac Device: AICD Device Placement Date:: 01-10-17 Smoking Status: Former smoker - Past Family History Mother Family Medical History: Unable to Obtain Additional Family Medical History / Comment(s): Mother of unknown cause. Father Family Medical History: Unable to Obtain Additional Family Medical History / Comment(s): Father of unknown cause. Medications and Allergies Home Medications Medication Instructions Recorded Confirmed Type Furosemide [Lasix] 20 mg PO TID 10/18/16 03/22/19 History Latanoprost [Xalatan 0.005%] 1 drop BOTH EYES HS 10/18/16 03/22/19 History metFORMIN HCL ER [Glucophage Xr] 500 mg PO DAILY@1630 10/18/16 03/22/19 History Nitroglycerin Sl Tabs [Nitrostat] 0.4 mg SUBLINGUAL Q5M PRN tab 11/21/16 03/22/19 Rx Atorvastatin [Lipitor] 40 mg PO DAILY@1630 01/07/17 03/22/19 History Calcium Polycarbophil [Fibercon] 625 mg PO BID 01/07/17 03/22/19 History Gabapentin [Neurontin] 300 mg PO TID 04/05/17 03/22/19 History Naproxen Sodium [Anaprox] 275 mg PO BID 04/05/17 03/22/19 History Aspirin EC [Ecotrin Low Dose] 81 mg PO DAILY@0803/22/19 03/22/19 History Carvedilol [Coreg] 6.25 mg PO TID 03/22/19 03/22/19 History Clopidogrel [Plavix] 75 mg PO DAILY@0800 03/22/19 03/22/19 History Losartan [Cozaar] 50 mg PO DAILY@0800 03/22/19 03/22/19 History Allergies Allergy/AdvReac Type Severity Reaction Status Date / Time spironolactone Allergy Unknown Verified 03/22/19 10:56 hydrocodone bitartrate AdvReac Confusion Verified 03/22/19 10:56 [From Vicodin] Physical Exam Vitals: Vital Signs Temp Pulse Pulse Resp BP BP Pulse Ox 03/22/19 16:00 61 18 03/22/19 15:36 97.3 F L 61 18 151/79 97 03/22/19 12:00 68 18 03/22/19 11:27 97.3 F L 68 18 157/78 96 03/22/19 08:00 98.1 F 66 18 134/74 95 03/22/19 07:58 20 03/22/19 06:44 62 18 140/62 96 03/22/19 04:47 62 18 136/64 100 03/22/19 02:40 60 18 157/75 97 03/22/19 00:01 97.9 F 79 38 H 185/82 99 Intake and Output 03/22/19 03/22/19 03/22/19 06:59 14:59 22:59 Intake Total 476 Balance 476 Intake: Oral 476 Other: Voiding Method Toilet Toilet Urinal Urinal Weight 105.233 kg 105.233 kg 105.233 kg General: [non toxic], [no distress], [appears at stated age] Derm: [warm], [dry] Head: [atraumatic], [normocephalic], [symmetric] Eyes: [EOMI], [no lid lag], [anicteric sclera] Mouth: [no lip lesion], [mucus membranes moist] Cardiovascular: [S1S2 reg], [no murmur], [positive DP pulse bilateral], Lungs: [Decreased breath sounds bilateral], [no rhonchi, no rales] , [no accessory muscle use] Abdominal: [soft], [ nontender to palpation], [no guarding], [no appreciable organomegaly] Ext: [no gross muscle atrophy], [no edema], [no contractures] Neuro: [ CN II-XI grossly intact], [no focal neuro deficits] Psych: [Alert], [oriented], [appropriate affect] Results CBC & Chem 7: 03/22/19 00:35 03/22/19 00:35 Labs: Abnormal Lab Results - Last 24 Hours (Table) 03/22/19 03/22/19 03/22/19 Range/Units 00:35 00:35 09:29 RDW 15.6 H (11.5-15.5) % Lymphocytes # 0.8 L (1.0-4.8) k/uL D-Dimer 1.12 H (<0.60) mg/L FEU BUN 35 H (9-20) mg/dL Creatinine 2.28 H (0.66-1.25) mg/dL Glucose 153 H (74-99) mg/dL POC Glucose (mg/dL) (75-99) mg/dL Alkaline Phosphatase 133 H (38-126) U/L 03/22/19 03/22/19 Range/Units 11:33 16:28 RDW (11.5-15.5) % Lymphocytes # (1.0-4.8) k/uL D-Dimer (<0.60) mg/L FEU BUN (9-20) mg/dL Creatinine (0.66-1.25) mg/dL Glucose (74-99) mg/dL POC Glucose (mg/dL) 130 H 159 H (75-99) mg/dL Alkaline Phosphatase (38-126) U/L Thrombosis Risk Factor Assmnt - Choose All That Apply Any of the Below Risk Factors Present?: Yes Each Factor Represents 1 point: Abnormal pulmonary function (COPD), Heart failure (<1month), Obesity (BMI >25) Other Risk Factors: Yes Each Risk Factor Represents 2 Points: Malignancy Each Risk Factor Represents 3 Points: Age 75 years or older Other congenital or acquired thrombophilia - If yes, enter type in comment: No Thrombosis Risk Factor Assessment Total Risk Factor Score: 8 Thrombosis Risk Factor Assessment Level: High Risk Assessment and Plan Assessment: Acute on chronic systolic CHF exacerbation Chest pain rule, out acute coronary syndrome Elevated d-dimer with history of PE Acute kidney injury on chronic kidney disease Elevated alkaline phosphatase Diabetes mellitus with hyperglycemia Possible interstitial markings on chest x-ray, concerns for CHF exacerbation. Repeat Echo cardiac shows EF 25-30% with severe global hypokinesis, stable from October 2016. We will continue Lasix 40 mg IV twice a day. Obtain strict intake and output take along with daily weights. Troponin was less than 0.012, 0.014 with EKG showing sinus rhythm with T-wave abnormalities. Trend 1 troponin tomorrow morning to rule out ACS. VQ scan was ordered for elevated d-dimer which showed intermediate probability for PE. Discussed with RN, cardiology would like to monitor for now with no anticoagulation recommended. Consult pulmonology for further recommendations. Nephrology was consulted for ETTA on CKD, renal ultrasound showing no hydronephrosis and medical renal disease. Patient has been placed on insulin sliding scale for his diabetes with hyperglycemia. Patient is pending clinical improvement. Likely DC in 1-2 days. DVT prophylaxis: [Heparin subcutaneous] Discussed with: [Patient] Anticipated discharge: [1-2 days] Anticipated discharge place: [Home] A total of [45] minutes was spent on the care of this complex patient more than 50% of the time was spent in counseling and care coordination. Patient names his Izabella decision maker if he is unable to make decisions for himself. Patient reiterates wanting to remain full code.
[2019-03-22] MEDS: HEPARIN SODIUM,PORCINE 5,000 UNIT/ML 1 ML VIAL SQ SCH ×2 (18:49→23:39)
[2019-03-22 19:04] LABS: Appearance,Urine Clear (Clear); Bilirubin,Urine Negative (Negative); Blood,Urine Negative (Negative); Color,Urine Light Yellow; Glucose,Urine (UA) Negative (Negative); Ketones,Urine Negative (Negative); Leukocyte Esterase,Urine Trace (Negative); Mucus,Urine Rare /hpf; Nitrite,Urine Negative (Negative); PH, Urine 6.5 (5.0-8.0); Protein,Urine Trace (Negative); RBC,Urine 3 /hpf (0-5); Squamous Epithelial Cell,Urine <1 /hpf (0-4); Urobilinogen,Urine <2.0 mg/dL (<2.0); WBC,Urine 1 /hpf (0-5)
[2019-03-22 20:05] LABS: Glucose,Whole Blood 128 mg/dL (75-99)
[2019-03-22] MEDS: INSULIN ASPART (NovoLOG) 100 UNIT/ML VIAL SQ SCH (20:13)
[2019-03-22] MEDS: GABAPENTIN 300 MG CAP PO SCH (20:20)
[2019-03-22] MEDS ORDERED: LATANOPROST 0.005% OPHTH DROPS 2.5 ML BTL BOTH EYES SCH (21:00)
[2019-03-22] MEDS ORDERED: MELATONIN 3 MG TABLET PO SCH (22:15)
--- NOTE | 2019-03-23 00:24 | US ---
EXAMINATION TYPE: US venous doppler duplex LE DATE OF EXAM: 03/22/2019 10:06 PM COMPARISON: NONE CLINICAL HISTORY: dvt. R/O DVT per order. Hx PE. Patient takes aspirin. SIDE PERFORMED: Bilateral TECHNIQUE: The lower extremity deep venous system is examined utilizing real time linear array sonog robert with graded compression, doppler sonography and color-flow sonography. VESSELS IMAGED: External Iliac Vein (EIV) Common Femoral Vein Deep Femoral Vein Greater Saphenous Vein * Femoral Vein Popliteal Vein Small Saphenous Vein * Proximal Calf Veins (* superficial vessels) Right Leg: No evidence of DVT in veins imaged from prox calf veins to EIV at this time. Left Leg: No evidence of DVT in veins imaged from prox calf veins to EIV at this time. IMPRESSION: Normal exam. No evidence of deep venous thrombosis in both legs.
[2019-03-23] MEDS: FUROSEMIDE 10 MG/ML 4 ML VIAL IV SCH (06:17)
[2019-03-23 06:51] LABS: Glucose,Whole Blood 119 mg/dL (75-99)
[2019-03-23 07:03] LABS: Calcium 9.3 mg/dL (8.4-10.2); Potassium 4.4 mmol/L (3.5-5.1)
[2019-03-23] MEDS: INSULIN ASPART (NovoLOG) 100 UNIT/ML VIAL SQ SCH ×2 (07:23→12:11)
[2019-03-23] MEDS: ASPIRIN 81 MG PO SCH (07:53)
[2019-03-23] MEDS: GABAPENTIN 300 MG CAP PO SCH (07:53)
[2019-03-23] MEDS: CARVEDILOL 6.25 MG TAB PO SCH (07:53)
[2019-03-23] MEDS: HEPARIN SODIUM,PORCINE 5,000 UNIT/ML 1 ML VIAL SQ SCH (07:53)
[2019-03-23] MEDS: CLOPIDOGREL 75 MG TAB PO SCH (07:53)
--- NOTE | 2019-03-23 10:37 | P.PN ---
Subjective HISTORY OF PRESENTING ILLNESS This is a pleasant 78-year-old male past medical history significant for coronary artery disease s/p PCI, ischemic cardiomyopathy status post AICD placement, ventricular tachycardia, chronic systolic heart failure, diabetes mellitus, hypertension, dyslipidemia and history of pulmonary embolism in the past. He follows in the office with Dr. Zuñiga. He is seen and examined laying flat in bed in no acute distress. He states his breathing has improved since admission. He denies chest pain, dizziness or palpitations. Blood pressure 135/76 heart rate 66 afebrile maintaining oxygen saturation on room air. Laboratory data reviewed, sodium 143, potassium 4.4, creatinine improved to 2.08, troponin negative 2. Currently maintained on Lasix 40 mg IV twice a day, aspirin 81 mg daily, atorvastatin 40 mg daily, carvedilol 6.25 mg twice a day, Plavix 75 mg daily and losartan is currently on hold per nephrology. He underwent a VQ scan yesterday revealing intermediate probability for PE with multiple matched defects, defects or greater and ventilation and perfusion favoring respiratory etiology rather than PE. Pulmonary has been consulted. Bilateral lower extremity Doppler negative for DVT. Echocardiogram reveals severely impaired LV systolic function with ejection fraction 25-30%, severe global hypokinesia, grade 2 diastolic dysfunction, moderately dilated left atrium, mild MR, mild TR and mild pulmonary hypertension with an RVSP of 36 mmHg PHYSICAL EXAMINATION CONSTITUTIONAL: No apparent distress. HEENT: Head is normocephalic. Pupils are equal, round. Sclerae anicteric. Mucous membranes of the mouth are moist. No JVD. No carotid bruit. CHEST EXAMINATION: Lungs are clear to auscultation. No chest wall tenderness is noted on palpation or with deep breathing. HEART EXAMINATION: Regular rate and rhythm. S1, S2 heard. No murmurs, gallops or rub. EXTREMITIES: 2+ peripheral pulses, no lower extremity edema and no calf tenderness. ASSESSMENT Acute on chronic systolic heart failure, mild Acute on chronic renal failure Ischecmic cardiomyopathy s/p AICD placement History of PE Hypertension Dyslipidemia Diabetes mellitus PLAN Transition to oral diuretics. Symptoms have improved with diuresis. Doubt PE based on V/Q findings. Symptoms also may be on the basis of underlying COPD. Await pulmonary opinion. Nurse Practitioner note has been reviewed, I agree with a documented findings and plan of care. Patient was seen and examined. Objective - Vital Signs Vital signs: Vital Signs Temp 97.5 F L 03/23/19 07:43 Pulse 66 03/23/19 08:00 Resp 18 03/23/19 08:00 BP 135/76 03/23/19 07:43 Pulse Ox 96 03/23/19 07:43 Intake & Output 03/22/19 03/23/19 03/23/19 18:59 06:59 18:59 Intake Total 476 Balance 476 Weight 105.233 kg Intake: Oral 476 Other: Voiding Method Toilet Toilet Toilet Urinal Urinal Urinal - Labs CBC & Chem 7: 03/22/19 00:35 03/23/19 06:21 Labs: Abnormal Lab Results - Last 24 Hours (Table) 03/22/19 03/22/19 03/22/19 Range/Units 11:33 16:28 18:53 Carbon Dioxide (22-30) mmol/L BUN (9-20) mg/dL Creatinine (0.66-1.25) mg/dL Glucose (74-99) mg/dL POC Glucose (mg/dL) 130 H 159 H (75-99) mg/dL Urine Protein Trace H (Negative) Ur Leukocyte Esterase Trace H (Negative) Urine Mucus Rare H (None) /hpf 03/22/19 03/23/19 03/23/19 Range/Units 19:56 06:21 06:50 Carbon Dioxide 32 H (22-30) mmol/L BUN 38 H (9-20) mg/dL Creatinine 2.08 H (0.66-1.25) mg/dL Glucose 125 H (74-99) mg/dL POC Glucose (mg/dL) 128 H 119 H (75-99) mg/dL Urine Protein (Negative) Ur Leukocyte Esterase (Negative) Urine Mucus (None) /hpf
[2019-03-23 11:33] VITALS: BP 131/65; PULSE 54; TEMP 98.1
[2019-03-23 11:47] LABS: Glucose,Whole Blood 188 mg/dL (75-99)
--- NOTE | 2019-03-23 12:31 | PN ---
PROGRESS NOTE The patient is seen for followup for chronic kidney disease and acute kidney injury. His renal function has improved with creatinine down to 2.0 from 2.28 mg/dL on initial admission. The patient is currently being diuresed. He was admitted with shortness of breath and volume overload. He has had good urine output. He denies any other significant complaint today. PHYSICAL EXAMINATION: On examination, blood pressure is 131/65, heart rate 54 per minute. He is afebrile. EXAMINATION OF THE HEART: S1, S2. EXAMINATION OF THE LUNGS: Bilateral breath sounds are heard. Decreased breath sounds at bases. No crackles are heard. ABDOMEN: Soft, obese. Examination of lower extremities shows trace edema bilaterally. CAGER OPERATOR EXAM: Grossly intact. LABS: Labs show sodium 143, potassium 4.4, chloride 104, CO2 is 32, BUN 38, creatinine 2.08. UA shows trace protein, trace leukocyte esterase, WBCs of 1. No blood is seen. ASSESSMENT: 1. Chronic kidney disease secondary to nephrosclerosis, NKF stage 3, with baseline creatinine about 2.0 to 1.9 mg/dL. The UA is quite benign and ultrasound of the kidneys done yesterday is unremarkable. 2. Acute kidney injury, cardiorenal, currently improved. 3. Congestive heart failure acute on top of chronic, systolic. 4. Cardiomyopathy, ejection fraction 25% to 30%. 5. Coronary artery disease with history of coronary artery stenting. 6. Type 2 diabetes. PLAN: May continue to diurese patient. He can be switched to oral diuretics and discharge. Patient will need followup as outpatient for CKD. MMODL / IJN: [id number] /
--- NOTE | 2019-03-23 12:43 | P.DS ---
Providers Date of admission: 03/22/19 06:20 Expected date of discharge: 03/23/19 Attending physician: Nereyda Palafox MD Consults: 03/22/19 08:03 Consult Physician Stat Consulting Provider: Minor Larios Consult Reason/Comments: Chest pain, CHF Do you want consulting provider notified?: Yes 03/22/19 08:04 Consult Physician Stat Consulting Provider: Martin Molina Consult Reason/Comments: CKD Do you want consulting provider notified?: Yes 03/22/19 18:29 Consult Physician Routine Consulting Provider: Rachael Vicente Consult Reason/Comments: hx of PE, sob, elevated ddimer, VQ scan Do you want consulting provider notified?: Yes Primary care physician: [facility] Course: 78-year-old male with PMH of CAD status post PCI, ischemic cardio myopathy status post AICD, ventricular tachycardia, systolic heart failure, diabetes mellitus, hypertension, dyslipidemia, history of PE in the past presents the ED for chest pain and shortness of breath. Patient states that he has been feeling short of breath since his pacemaker and defibrillator placement 2 years ago. His shortness of breath is gradually been getting worse, especially with exertion. On Friday night he was too short of breath to sit down and watch Friday night football. When this continued into Friday, this pocket him to come to the ED. Patient reports chest soreness but attributes that to the increased work of breathing. He denies any headache, lower extremity edema, nausea or vomiting, fever or chills, cough, palpitations, changes in urination or bowel habits. No changes in appetite or weight. He denies any dizziness, numbness/weakness/tingling of the extremities. In the ED, his vital signs were stable. CBC and coagulation panel was negative. CMP showed BUN 35, creatinine 2.28, glucose 153, alkaline phosphatase 133. Troponin was less than 0.012, EKG showing normal sinus rhythm with T-wave abnormalities. BNP was 824, chest x-ray showing increased lung markings. Patient is admitted for chest pain, rule out acute coronary syndrome, cardiology is consulted. Troponin was less than 0.012, 0.014, 0.015 with EKG showing sinus rhythm with T- wave abnormalities, ACS was ruled out. Cardiology was consulted and recommended IV diuresis for mild CHF exacerbation. He was started on Lasix 40 mg IV twice a day. Echocardiogram was done which showed EF 25-30% with severe global hypokinesis which was stable from October 2016. VQ scan was ordered to elevated d-dimer which showed intermediate probability for PE. Venous duplex was negative for DVT bilaterally. Pulmonology was consulted and recommendations were pending at the time of this note. Nephrology was consulted for acute kidney injury on chronic kidney disease, renal ultrasound was ordered which showed no hydronephrosis and medical renal disease. Patient was seen and examined. No acute events overnight. Patient reports improvement in his breathing since admission. States that he is at baseline. States that he still gets winded if he moves too quickly. He denies any chest pain or palpitations. No nausea or vomiting. No fever or chills. General: [non toxic], [no distress], [appears at stated age] Derm: [warm], [dry] Head: [atraumatic], [normocephalic], [symmetric] Eyes: [EOMI], [no lid lag], [anicteric sclera] Mouth: [no lip lesion], [mucus membranes moist] Cardiovascular: [S1S2 reg], [no murmur], [positive DP pulse bilateral], Lungs: [Decreased breath sounds bilateral], [no rhonchi, no rales] , [no accessory muscle use] Abdominal: [soft], [ nontender to palpation], [no guarding], [no appreciable organomegaly] Ext: [no gross muscle atrophy], [no edema], [no contractures] Neuro: [no focal neuro deficits] Psych: [Alert], [oriented], [appropriate affect] Acute on chronic systolic CHF exacerbation Chest pain rule, out acute coronary syndrome Elevated d-dimer with history of PE Acute kidney injury on chronic kidney disease Elevated alkaline phosphatase Diabetes mellitus with hyperglycemia Patient's breathing has improved and is currently saturating 90s on room air. Cardiology has seen the patient and his Lasix has been transitioned from IV to o ral for discharge. Acute coronary syndrome has been ruled out and his chest pain has resolved. VQ scan shows intermediate probability of PE and we are waiting on pulmonology input. Patient's renal function has been stable and his creatinine on discharge was 2.08. Patient will need to follow-up with PCP within 3 days. He will need to see cardiology and nephrology within 1 week. Patient is hemodynamically stable and should be discharged today. Pertinent Studies: Chest x-ray, echocardiogram, VQ scan, renal ultrasound, venous duplex Patient Condition at Discharge: Serious Plan - Discharge Summary Discharge Rx Participant: No New Discharge Prescriptions: New Carvedilol [Coreg] 6.25 mg PO BID-W/MEALS tab Furosemide [Lasix] 40 mg PO BID@0900,1600 #60 tab Continue metFORMIN HCL ER [Glucophage Xr] 500 mg PO DAILY@1630 Latanoprost [Xalatan 0.005%] 1 drop BOTH EYES HS Nitroglycerin Sl Tabs [Nitrostat] 0.4 mg SUBLINGUAL Q5M PRN tab PRN Reason: Chest Pain Calcium Polycarbophil [Fibercon] 625 mg PO BID Atorvastatin [Lipitor] 40 mg PO DAILY@1630 Gabapentin [Neurontin] 300 mg PO TID Naproxen Sodium [Anaprox] 275 mg PO BID Aspirin EC [Ecotrin Low Dose] 81 mg PO DAILY@0800 Clopidogrel [Plavix] 75 mg PO DAILY@0800 Losartan [Cozaar] 50 mg PO DAILY@0800 Discontinued Furosemide [Lasix] 20 mg PO TID Carvedilol [Coreg] 6.25 mg PO TID Discharge Medication List Latanoprost [Xalatan 0.005%] 1 drop BOTH EYES HS 10/18/16 [History] metFORMIN HCL ER [Glucophage Xr] 500 mg PO DAILY@1630 10/18/16 [History] Nitroglycerin Sl Tabs [Nitrostat] 0.4 mg SUBLINGUAL Q5M PRN tab 11/21/16 [Rx] Atorvastatin [Lipitor] 40 mg PO DAILY@1630 01/07/17 [History] Calcium Polycarbophil [Fibercon] 625 mg PO BID 01/07/17 [History] Gabapentin [Neurontin] 300 mg PO TID 04/05/17 [History] Naproxen Sodium [Anaprox] 275 mg PO BID 04/05/17 [History] Aspirin EC [Ecotrin Low Dose] 81 mg PO DAILY@0800 03/22/19 [History] Clopidogrel [Plavix] 75 mg PO DAILY@0800 03/22/19 [History] Losartan [Cozaar] 50 mg PO DAILY@0800 03/22/19 [History] Carvedilol [Coreg] 6.25 mg PO BID-W/MEALS tab 03/23/19 [Rx] Furosemide [Lasix] 40 mg PO BID@0900,1600 #60 tab 03/23/19 [Rx] Follow up Appointment(s)/Referral(s): Masoud Omalley MD [Primary Care Provider] - 1-2 days Beltran Bañuelos MD [STAFF PHYSICIAN] - 1 Week Brigitte Apodaca MD [STAFF PHYSICIAN] - 1 Week Rachael Vicente MD [STAFF PHYSICIAN] - 1 Week Activity/Diet/Wound Care/Special Instructions: Diet: Cardiac Follow-up PCP within 3 days of discharge. Follow-up cardiology within 1 week of discharge. Follow-up nephrology within 1 week of discharge. Take all medications as advised. Follow-up pulmonology within 1 week of discharge. Discharge Disposition: HOME SELF-CARE
--- NOTE | 2019-03-23 14:20 | P.CNPUL ---
History of Present Illness Consult date: 03/23/19 Requesting physician: Nereyda Palafox Reason for consult: dyspnea Chief complaint: Dyspnea History of present illness: 78-year-old male with history of ischemic cardiomyopathy with EF of 25-30%, status post AICD placement, coronary artery disease with previous PCI, chronic congestive heart failure with systolic dysfunction, diabetes mellitus type 2, hypertension, dyslipidemia, previous history of pulmonary embolism in his left lower lung 6 years ago following exacerbation of occipital neuritis and increased immobility related to headaches. Patient presents to the emergency department on 03/21/2019 for evaluation of worsening dyspnea has been progressive in nature and became her to clearly worse on Friday night. Patient states she was watching television, and was just sitting in the recliner upright when she felt his breathing get progressively worse, patient could not sleep due to shortness of breath. He felt increasing heavy pressure in his chest which she attributes to difficulty breathing. He denied any cough or congestion, no fever or chills, denied any weight gain or lower extremity edema, denied any swelling or tenderness in his calves, no hemoptysis. Patient denies taking any anticoagulants for his previous history of pulmonary embolism states that he was just managed with aspirin. But review of records revealed that patient was treated with Xarelto. He seems to have a lot of anxiety about anti- coagulants and Coumadin in particular. Denies any recent history of surgery, denies any immobility, patient states he is usually quite active. Does have a history of [id number] smoking, he quit in 1982, he is not normally on any oxygen, and he was not diagnosed with any chronic lung condition. CTA chest 2014 which showed a left lower lobe pulmonary embolism with pulmonary infarct also showed background emphysematous changes within the upper lobes, no pu lmonary nodules or masses. He is not on any inhalers on a regular basis. Chest x-ray was completed showing coarsening of interstitial markings that increased compared to last exam from last year 2018, but no obvious heart failure, no pulmonary consolidation, mild atelectasis in the left lower lobe. CBC was unremarkable, d-dimer didn't come back elevated at 1.12, however the renal profile was impaired with BUN of 35 and creatinine of 2.28 and a VQ scan was obtained to rule out pulmonary embolism and showed intermediate probability with multiple matched defects. Defects were greater on the ventilation and perfusion favoring respiratory etiology rather than pulmonary embolus. Troponins were less than 0.012, 0.014, and 0.015. Venous upper's were negative for evidence of DVT. Cardiology is following and patient is on oral Lasix. His proBNP was 824, does not look to be clinically fluid overloaded. Echocardiogram showed EF of 25-30%, no evidence of aortic stenosis, mild MR and mild TR, and mild pulmonary hypertension with PA systolic of 36.8 mmHg. The IVC was dilated with poor ins piratory collapse estimated right atrial pressure of 20 mmHg. Her pulse ox is 96%, hemodynamically patient is stable, he states his breathing is improving, he is laying in bed at about 20 elevation. EKG shows normal sinus rhythm with right bundle branch block a rate of 67, with ST changes and T-wave inversion in the inferior and lateral leads. Review of Systems All systems: negative Constitutional: Denies chills, Denies fever Eyes: denies blurred vision, denies pain Ears, nose, mouth and throat: Denies headache, Denies sore throat Cardiovascular: Reports chest pain, Reports dyspnea on exertion, Denies shortness of breath Respiratory: Reports dyspnea, Denies cough Gastrointestinal: Denies abdominal pain, Denies diarrhea, Denies nausea, Denies vomiting Musculoskeletal: Denies myalgias Integumentary: Denies pruritus, Denies rash Neurological: Denies numbness, Denies weakness Psychiatric: Denies anxiety, Denies depression Endocrine: Denies fatigue, Denies weight change Past Medical History Past Medical History: Coronary Artery Disease (CAD), Cancer, Chest Pain / Angina, Heart Failure, COPD, Diabetes Mellitus, Eye Disorder, Hyperlipidemia, Hypertension, Myocardial Infarction (AK), Osteoarthritis (OA), Pneumonia, Prostate Disorder, Pulmonary Embolus (PE), Renal Disease Additional Past Medical History / Comment(s): NIDDM type II, chronic kidney disease stage III, R eye glaucoma, tracheobronchitis, ischemic cardiomyopathy with AICD, pulmonary emboli L lung, prostatitis, prostate cancer with surgery, UTI, chronic haider/cervical and bilateral shoulder pain, back pain, gout, fatty tumor R back Last Myocardial Infarction Date:: 10/18/16 History of Any Multi-Drug Resistant Organisms: None Reported Past Surgical History: AICD, Back Surgery, Heart Catheterization, Heart Catheterization With Stent, Hernia Repair, Pacemaker, Prostate Surgery Additional Past Surgical History / Comment(s): CARDIOVERSION/WORE LEFE VEST UNTIL AICD/pacer IMPLANTED 01-10-17.. lumbar surgery twice, cervical epidural injections, bilateral inguinal hernia repairs, TURP, colonoscopy, bilateral cataract removals. Past Anesthesia/Blood Transfusion Reactions: No Reported Reaction Date of Last Stent Placement:: 10/18/16 Type of Cardiac Device: AICD Device Placement Date:: 01-10-17 Smoking Status: Former smoker - Past Family History Mother Family Medical History: Unable to Obtain Additional Family Medical History / Comment(s): Mother of unknown cause. Father Family Medical History: Unable to Obtain Additional Family Medical History / Comment(s): Father of unknown cause. Medications and Allergies Home Medications Medication Instructions Recorded Confirmed Type Latanoprost [Xalatan 0.005%] 1 drop BOTH EYES HS 10/18/16 03/22/19 History metFORMIN HCL ER [Glucophage Xr] 500 mg PO DAILY@1630 10/18/16 03/22/19 History Nitroglycerin Sl Tabs [Nitrostat] 0.4 mg SUBLINGUAL Q5M PRN tab 11/21/16 03/22/19 Rx Atorvastatin [Lipitor] 40 mg PO DAILY@1630 01/07/17 03/22/19 History Calcium Polycarbophil [Fibercon] 625 mg PO BID 01/07/17 03/22/19 History Gabapentin [Neurontin] 300 mg PO TID 04/05/17 03/22/19 History Naproxen Sodium [Anaprox] 275 mg PO BID 04/05/17 03/22/19 History Aspirin EC [Ecotrin Low Dose] 81 mg PO DAILY@0800 03/22/19 03/22/19 History Clopidogrel [Plavix] 75 mg PO DAILY@0800 03/22/19 03/22/19 History Losartan [Cozaar] 50 mg PO DAILY@0800 03/22/19 03/22/19 History Carvedilol [Coreg] 6.25 mg PO BID-W/MEALS tab 03/23/19 Rx Furosemide [Lasix] 40 mg PO BID@0900,1600 #60 tab 03/23/19 Rx Allergies Allergy/AdvReac Type Severity Reaction Status Date / Time spironolactone Allergy Unknown Verified 03/22/19 10:56 hydrocodone bitartrate AdvReac Confusion Verified 03/22/19 10:56 [From Vicodin] Physical Exam Vitals: Vital Signs Temp Pulse Pulse Resp BP Pulse Ox 03/23/19 08:00 66 18 03/23/19 07:43 97.5 F L 66 18 135/76 96 03/23/19 03:24 97.7 F 61 18 129/72 96 03/23/19 03:01 18 03/22/19 23:48 98.2 F 60 18 125/67 99 03/22/19 23:08 18 03/22/19 20:00 18 03/22/19 19:16 97.3 F L 66 18 161/72 98 03/22/19 16:00 61 18 03/22/19 15:36 97.3 F L 61 18 151/79 97 03/22/19 12:00 68 18 03/22/19 11:27 97.3 F L 68 18 157/78 96 Intake and Output 03/22/19 03/23/19 03/23/19 22:59 06:59 14:59 Intake Total 476 Balance 476 Intake: Oral 476 Other: Voiding Method Toilet Toilet Toilet Urinal Urinal Urinal Weight 105.233 kg GENERAL EXAM: Alert, 78-year-old white male, with a room air pulse ox of 96%, resting in bed, with head of the bed elevated at 20 comfortable in no apparent distress. HEAD: Normocephalic/atraumatic. EYES: Normal reaction of pupils, equal size. Conjunctiva pink, sclera white. NOSE: Clear with pink turbinates. THROAT: No erythema or exudates. NECK: No masses, no JVD, no thyroid enlargement, no adenopathy. CHEST: No chest wall deformity. Symmetrical expansion. Left upper chest AICD healed incision clean dry and intact LUNGS: Equal air entry with no crackles, wheeze, rhonchi or dullness. CVS: Regular rate and rhythm, normal S1 and S2, no gallops, no murmurs, no rubs ABDOMEN: Soft, nontender. No hepatosplenomegaly, normal bowel sounds, no guarding or rigidity. EXTREMITIES: No clubbing, no edema, no cyanosis, 2+ pulses and upper and lower extremities. MUSCULOSKELETAL: Muscle strength and tone normal. SPINE: No scoliosis or deformity SKIN: No rashes CENTRAL NERVOUS SYSTEM: Alert and oriented -3. No focal deficits, tone is normal in all 4 extremities. PSYCHIATRIC: Alert and oriented -3. Appropriate affect. Intact judgment and insight. Results - Laboratory Findings CBC and BMP: 03/22/19 00:35 03/23/19 06:21 PT/INR, D-dimer PT 10.3 sec (9.0-12.0) 03/22/19 00:35 INR 1.0 (<1.2) 03/22/19 00:35 D-Dimer 1.12 mg/L FEU (<0.60) H 03/22/19 09:29 Abnormal lab findings: Abnormal Labs 03/22/19 03/22/19 03/22/19 00:35 00:35 09:29 RDW 15.6 H Lymphocytes # 0.8 L D-Dimer 1.12 H Carbon Dioxide BUN 35 H Creatinine 2.28 H Glucose 153 H POC Glucose (mg/dL) Alkaline Phosphatase 133 H Urine Protein Ur Leukocyte Esterase Urine Mucus 03/22/19 03/22/19 03/22/19 11:33 16:28 18:53 RDW Lymphocytes # D-Dimer Carbon Dioxide BUN Creatinine Glucose POC Glucose (mg/dL) 130 H 159 H Alkaline Phosphatase Urine Protein Trace H Ur Leukocyte Esterase Trace H Urine Mucus Rare H 03/22/19 03/23/19 03/23/19 19:56 06:21 06:50 RDW Lymphocytes # D-Dimer Carbon Dioxide 32 H BUN 38 H Creatinine 2.08 H Glucose 125 H POC Glucose (mg/dL) 128 H 119 H Alkaline Phosphatase Urine Protein Ur Leukocyte Esterase Urine Mucus - Diagnostic Findings Chest x-ray: report reviewed, image reviewed Additional studies: Ventilation perfusion scan results reviewed Assessment and Plan Plan: Assessment: #1. Dyspnea, likely related to acute exacerbation of chronic systolic heart failure, mild #2. Elevated d-dimer, VQ scan showed intermediate probable for pulmonary embolism with ventilation perfusion defect favoring respiratory etiology rather than PE, lower extremity Dopplers were negative for evidence of DVT #3. Acute on chronic renal impairment #4. Chronic kidney disease stage IV #5. History of ischemic cardiomyopathy with the EF of 25-30%, no evidence of aortic stenosis, mild MR and TR, and mild pulmonary hypertension with right- sided pressures of 36 mmHg #6. Previous episode of pulmonary embolism, unprovoked by immobility, in 2014, patient completed a course of several to #7. Previous history of prostate cancer treated #8. Coronary artery disease with history of PCI #9. Chronic congestive heart failure with systolic dysfunction #10. Diabetes mellitus type II #11. History of myocardial infarctions #12. History of chronic headaches, chronic neck, back and shoulder pain #13. History of ventricular tachycardia, status post AICD implantation #14. History of nicotine dependence, in remission since 1982, carries a [id number] smoking history Plan: VQ scan reviewed, lower extremity Dopplers are negative for DVT, clinical suspicion for pulmonary embolism is low, Wells score is 1.5, consistent with low risk for pulmonary embolism. Cardiology is managing patient's congestive heart failure, his breathing has improved, patient is on room air, echocardiogram results have been noted, he is on room air, maintaining stable oxygenation. Would not recommend anticoagulation for PE at this time. I performed a history & physical examination of the patient and discussed their management with my nurse practitioner, Octavia Royal. I reviewed the nurse practitioner's note and agree with the documented findings and plan of care. Lung sounds are positive for clear breath sounds. The findings and the impression was discussed with the patient. I attest to the documentation by the nurse practitioner. Time with Patient: Greater than 30
[2019-03-23] MEDS ORDERED: FUROSEMIDE 40 MG TAB PO SCH (16:00)
== END 2019-03-23 15:23 | disposition home or self-care (01) ==
LOC: EC 23:58 → 1SOBS 03-22 06:20
PROVIDERS: ADMIT Internal Medicine; ATTEND Internal Medicine
DX: I13.0 Hypertensive heart and chronic kidney disease with heart failure and stage 1 through stage 4 chronic kidney disease, or unspecified chronic kidney disease (principal); I50.23 Acute on chronic systolic (congestive) heart failure; R07.89 Other chest pain; R79.1 Abnormal coagulation profile; Z86.711 Personal history of pulmonary embolism; N18.4 Chronic kidney disease, stage 4 (severe); N17.9 Acute kidney failure, unspecified; R74.8 Abnormal levels of other serum enzymes; E11.22 Type 2 diabetes mellitus with diabetic chronic kidney disease; E11.65 Type 2 diabetes mellitus with hyperglycemia; I25.5 Ischemic cardiomyopathy; I25.10 Atherosclerotic heart disease of native coronary artery without angina pectoris; E78.5 Hyperlipidemia, unspecified; I25.2 Old myocardial infarction; M19.90 Unspecified osteoarthritis, unspecified site; H40.9 Unspecified glaucoma; G89.29 Other chronic pain; R51 Headache; M54.2 Cervicalgia; M25.519 Pain in unspecified shoulder; K57.90 Diverticulosis of intestine, part unspecified, without perforation or abscess without bleeding; M10.9 Gout, unspecified; I47.2 Ventricular tachycardia; I08.1 Rheumatic disorders of both mitral and tricuspid valves; I27.20 Pulmonary hypertension, unspecified; J44.9 Chronic obstructive pulmonary disease, unspecified; J98.11 Atelectasis; E66.9 Obesity, unspecified; Z68.33 Body mass index [BMI] 33.0-33.9, adult; Z87.891 Personal history of nicotine dependence; Z79.01 Long term (current) use of anticoagulants; Z79.899 Other long term (current) drug therapy; Z79.84 Long term (current) use of oral hypoglycemic drugs; Z79.1 Long term (current) use of non-steroidal anti-inflammatories (NSAID); Z88.8 Allergy status to other drugs, medicaments and biological substances; Z88.5 Allergy status to narcotic agent; Z85.46 Personal history of malignant neoplasm of prostate; Z87.01 Personal history of pneumonia (recurrent); Z95.810 Presence of automatic (implantable) cardiac defibrillator; Z98.890 Other specified postprocedural states; Z95.5 Presence of coronary angioplasty implant and graft; Z90.79 Acquired absence of other genital organ(s); Z98.42 Cataract extraction status, left eye; Z98.41 Cataract extraction status, right eye; Z87.09 Personal history of other diseases of the respiratory system; Z87.440 Personal history of urinary (tract) infections; Z87.2 Personal history of diseases of the skin and subcutaneous tissue
CPT/HCPCS: 96372 ×2; 96376 ×2; 96374; 99285; 36415; 93005; 85379; 83880; 80053; 80048; 83735; 84484 ×2; 85025; 85610; 85730; 81001; 71046; 76770; 93970; 78582; G0378 ×2; C8929; A9540; A9567; J1644 ×2; J1940 ×2; Q9950; 93306

== ENCOUNTER → 2019-04-10 | Outpatient (CLI) | payer MEDICARE, BC | LOC: LABWHC1 08:58 | PROVIDERS: ATTEND Urology | DX: C61 Malignant neoplasm of prostate (principal) | CPT/HCPCS: 36415; 84153 ==

== ENCOUNTER 2020-01-02 11:59 | Observation (INO) | payer MEDICARE, BC ==
[2020-01-02] MEDS ORDERED: SODIUM CHLORIDE 0.9% 1,000 ML IV STA (12:28)
[2020-01-02] MEDS ORDERED: METOCLOPRAMIDE 5 MG/ML 2 ML VIAL IVP STA (12:29)
[2020-01-02] MEDS ORDERED: MECLIZINE 12.5 MG TAB PO STA (12:29)
--- NOTE | 2020-01-02 12:32 | ED ---
General Adult HPI - General Chief complaint: Dizziness Stated complaint: Dizziness Time Seen by Provider: 01/02/20 12:08 Source: patient, RN notes reviewed Mode of arrival: EMS Limitations: no limitations - History of Present Illness Initial comments: patient is a pleasant 79-year-old male presenting to the emergency Department with complaints of dizziness at onset of symptoms was prior to arrival. He should complains of a spinning type sensation. Symptoms are worse with upright position and head movement. Symptoms improve with lying down. Symptoms were sudden onset. Patient has had similar symptoms dozens of times previously. Patient has been evaluated for this including by a neurologist. Patientwas told this was from his "nerves ". Patient was placed on gabapentin for this. Patient also has a recent left ear infection that he saw his doctor for one week ago. Patient was placed on penicillin however still has some discomfort of his left ear. No confusion or weakness. No headache. - Related Data Home Medications Medication Instructions Recorded Confirmed Latanoprost [Xalatan 0.005%] 1 drop BOTH EYES HS 10/18/16 03/22/19 metFORMIN HCL ER [Glucophage Xr] 500 mg PO DAILY@1630 10/18/16 03/22/19 Atorvastatin [Lipitor] 40 mg PO DAILY@1630 01/07/17 03/22/19 calcium polycarbophiL [Fibercon] 625 mg PO BID 01/07/17 03/22/19 Gabapentin [Neurontin] 300 mg PO TID 04/05/17 03/22/19 Naproxen Sodium [Anaprox] 275 mg PO BID 04/05/17 03/22/19 Aspirin EC [Ecotrin Low Dose] 81 mg PO DAILY@0800 03/22/19 03/22/19 Clopidogrel [Plavix] 75 mg PO DAILY@0803/22/19 03/22/19 Losartan [Cozaar] 50 mg PO DAILY@0800 03/22/19 03/22/19 Previous Rx's Medication Instructions Recorded Nitroglycerin Sl Tabs [Nitrostat] 0.4 mg SUBLINGUAL Q5M PRN tab 11/21/16 Furosemide [Lasix] 40 mg PO BID@0900,1600 #60 tab 03/23/19 carvediloL [Coreg] 6.25 mg PO BID-W/MEALS tab 03/23/19 Allergies Allergy/AdvReac Type Severity Reaction Status Date / Time spironolactone Allergy Unknown Verified 01/02/20 12:26 hydrocodone bitartrate AdvReac Confusion Verified 01/02/20 12:26 [From Vicodin] Review of Systems ROS Statement: Those systems with pertinent positive or pertinent negative responses have been documented in the HPI. ROS Other: All systems not noted in ROS Statement are negative. Constitutional: Denies: fever Eyes: Denies: eye pain ENT: Denies: ear pain Respiratory: Denies: cough Cardiovascular: Denies: chest pain Endocrine: Denies: fatigue Gastrointestinal: Denies: abdominal pain Genitourinary: Denies: dysuria Musculoskeletal: Denies: back pain Skin: Denies: rash Neurological: Reports: vertigo. Denies: headache, weakness, numbness, paresthesias, confusion Past Medical History Past Medical History: Coronary Artery Disease (CAD), Cancer, Chest Pain / Angina, Heart Failure, COPD, Diabetes Mellitus, Eye Disorder, Hyperlipidemia, Hypertension, Myocardial Infarction (DC), Osteoarthritis (OA), Pneumonia, Prostate Disorder, Pulmonary Embolus (PE), Renal Disease Additional Past Medical History / Comment(s): NIDDM type II, chronic kidney disease stage III, R eye glaucoma, tracheobronchitis, ischemic cardiomyopathy with AICD, pulmonary emboli L lung, prostatitis, prostate cancer with surgery, UTI, chronic haider/cervical and bilateral shoulder pain, back pain, gout, fatty tumor R back Last Myocardial Infarction Date:: 10/18/16 History of Any Multi-Drug Resistant Organisms: None Reported Past Surgical History: AICD, Back Surgery, Heart Catheterization, Heart Catheterization With Stent, Hernia Repair, Pacemaker, Prostate Surgery Additional Past Surgical History / Comment(s): CARDIOVERSION/WORE LEFE VEST UNTIL AICD/pacer IMPLANTED 01-10-17.. lumbar surgery twice, cervical epidural injections, bilateral inguinal hernia repairs, TURP, colonoscopy, bilateral cataract removals. Past Anesthesia/Blood Transfusion Reactions: No Reported Reaction Date of Last Stent Placement:: 10/18/16 Type of Cardiac Device: AICD Device Placement Date:: 01-10-17 Past Psychological History: No Psychological Hx Reported Smoking Status: Never smoker Past Alcohol Use History: None Reported Past Drug Use History: None Reported - Past Family History Mother Family Medical History: Unable to Obtain Additional Family Medical History / Comment(s): Mother of unknown cause. Father Family Medical History: Unable to Obtain Additional Family Medical History / Comment(s): Father of unknown cause. General Exam Limitations: no limitations General appearance: alert, in no apparent distress Head exam: Present: normocephalic Eye exam: Present: normal appearance, PERRL, EOMI, nystagmus (horizontal) ENT exam: Present: other (left TM with erythema and fullness.) Neck exam: Present: normal inspection Respiratory exam: Present: normal lung sounds bilaterally Cardiovascular Exam: Present: regular rate, normal rhythm GI/Abdominal exam: Present: soft. Absent: tenderness Extremities exam: Present: normal inspection. Absent: pedal edema, calf tenderness Neurological exam: Present: alert, oriented X3, CN II-XII intact. Absent: motor sensory deficit Expanded Neurological exam: Present: protecting the airway Patient oriented to: Present: person, place, time Speech: Present: fluid speech Cranial nerves: Facial Sensation: Normal Cerebellar function: Finger to Nose: Normal Sensory exam: Upper Extremity Light Touch: Normal, Lower Extremity Light Touch: Normal Motor strength exam: RUE: 5, LUE: 5, RLE: 5, LLE: 5 Eye Response: (4) open spontaneously Motor Response: (6) obeys commands Verbal Response: (5) oriented Psychiatric exam: Present: normal affect, normal mood Skin exam: Present: normal color Course Vital Signs 01/02/20 01/02/20 12:15 12:45 Temperature 97.3 F L Pulse Rate 58 L 58 L Respiratory 24 22 Rate Blood Pressure 129/83 146/75 O2 Sat by Pulse 98 99 Oximetry EKG Findings - EKG Comments: EKG Findings:: paced rhythm with a rate of 58. IL 180. QRS 98. QT 512. QTC 502. Normal axis. Inferior T wave inversion. Normal QRS. PVC present. Artifact is present. Medical Decision Making - Medical Decision Making Patient reevaluated and only feels slightly better. Patient still has horizontal nystagmus. Chart review reveals no previous elevation of liver enzymes.abdomen remained soft and nontender. Patient is on Lipitor. Patient updated on results and plan. Case was discussed in detail with Dr. Stock, who will admit covering with [facility] for Dr. Leiva. - Lab Data Result diagrams: 01/02/20 12:40 01/02/20 12:40 Lab Results 01/02/20 01/02/20 01/02/20 Range/Units 12:40 12:40 12:40 WBC 9.0 (3.8-10.6) k/uL RBC 3.85 L (4.30-5.90) m/uL Hgb 12.2 L (13.0-17.5) gm/dL Hct 37.6 L (39.0-53.0) % MCV 97.6 (80.0-100.0) fL MCH 31.7 (25.0-35.0) pg MCHC 32.4 (31.0-37.0) g/dL RDW 15.0 (11.5-15.5) % Plt Count 124 L (150-450) k/uL Neutrophils % 85 % Lymphocytes % 6 % Monocytes % 6 % Eosinophils % 2 % Basophils % 0 % Neutrophils # 7.7 (1.3-7.7) k/uL Lymphocytes # 0.5 L (1.0-4.8) k/uL Monocytes # 0.6 (0-1.0) k/uL Eosinophils # 0.2 (0-0.7) k/uL Basophils # 0.0 (0-0.2) k/uL Hypochromasia Slight PT 10.8 (9.0-12.0) sec INR 1.0 (<1.2) APTT 27.4 (22.0-30.0) sec Sodium 140 (137-145) mmol/L Potassium 3.9 (3.5-5.1) mmol/L Chloride 104 (98-107) mmol/L Carbon Dioxide 28 (22-30) mmol/L Anion Gap 8 mmol/L BUN 36 H (9-20) mg/dL Creatinine 2.45 H (0.66-1.25) mg/dL Est GFR (CKD-EPI)AfAm 28 (>60 ml/min/1.73 sqM) Est GFR (CKD-EPI)NonAf 24 (>60 ml/min/1.73 sqM) Glucose 143 H (74-99) mg/dL Plasma Lactic Acid Ozzy (0.7-2.0) mmol/L Calcium 8.7 (8.4-10.2) mg/dL Magnesium 2.5 H (1.6-2.3) mg/dL Total Bilirubin 2.1 H (0.2-1.3) mg/dL AST 454 H (17-59) U/L ALT 637 H (4-49) U/L Alkaline Phosphatase 301 H (38-126) U/L Total Protein 7.0 (6.3-8.2) g/dL Albumin 3.4 L (3.5-5.0) g/dL 01/01/20 Range/Units 12:40 WBC (3.8-10.6) k/uL RBC (4.30-5.90) m/uL Hgb (13.0-17.5) gm/dL Hct (39.0-53.0) % MCV (80.0-100.0) fL MCH (25.0-35.0) pg MCHC (31.0-37.0) g/dL RDW (11.5-15.5) % Plt Count (150-450) k/uL Neutrophils % % Lymphocytes % % Monocytes % % Eosinophils % % Basophils % % Neutrophils # (1.3-7.7) k/uL Lymphocytes # (1.0-4.8) k/uL Monocytes # (0-1.0) k/uL Eosinophils # (0-0.7) k/uL Basophils # (0-0.2) k/uL Hypochromasia PT (9.0-12.0) sec INR (<1.2) APTT (22.0-30.0) sec Sodium (137-145) mmol/L Potassium (3.5-5.1) mmol/L Chloride (98-107) mmol/L Carbon Dioxide (22-30) mmol/L Anion Gap mmol/L BUN (9-20) mg/dL Creatinine (0.66-1.25) mg/dL Est GFR (CKD-EPI)AfAm (>60 ml/min/1.73 sqM) Est GFR (CKD-EPI)NonAf (>60 ml/min/1.73 sqM) Glucose (74-99) mg/dL Plasma Lactic Acid Ozzy 1.8 (0.7-2.0) mmol/L Calcium (8.4-10.2) mg/dL Magnesium (1.6-2.3) mg/dL Total Bilirubin (0.2-1.3) mg/dL AST (17-59) U/L ALT (4-49) U/L Alkaline Phosphatase (38-126) U/L Total Protein (6.3-8.2) g/dL Albumin (3.5-5.0) g/dL Disposition Clinical Impression: Vertigo, Transaminitis Disposition: ADMITTED IP TO THIS HOSP Is patient prescribed a controlled substance at d/c from ED?: No Referrals: Beltran Casitllo MD [Primary Care Provider] - 1-2 days Decision Time: 14:03
[2020-01-02 12:51] LABS: Basophils % (A) 0 %; Eosinophils # (A) 0.2 k/uL (0-0.7); Eosinophils % (A) 2 %; HCT 37.6 % (39.0-53.0); HGB 12.2 gm/dL (13.0-17.5); Hypochromasia Slight; Lymphocytes # (A) 0.5 k/uL (1.0-4.8); Lymphocytes % (A) 6 %; MCH 31.7 pg (25.0-35.0); MCHC 32.4 g/dL (31.0-37.0); MCV 97.6 fL (80.0-100.0); Mean Platelet Volume 8.5; Monocytes # (A) 0.6 k/uL (0-1.0); Monocytes % (A) 6 %; Neutrophils # (A) 7.7 k/uL (1.3-7.7); Neutrophils % (A) 85 %; Platelet Count 124 k/uL (150-450); RBC 3.85 m/uL (4.30-5.90)
--- NOTE | 2020-01-02 12:59 | CT ---
EXAMINATION TYPE: CT brain wo con DATE OF EXAM: 01/02/2020 HISTORY: dizziness CT DLP: 1099.4 mGycm. Automated Exposure Control for Dose Reduction was Utilized. TECHNIQUE: CT scan of the head is performed without contrast. COMPARISON: CT brain April 27, 2014. FINDINGS: There is no acute intracranial hemorrhage or midline shift identified. There is diffuse v entricular and sulcal prominence consistent with diffuse age-related cerebral atrophy. There is low- attenuation in the periventricular white matter consistent with chronic small vessel ischemic change. Patchy fluid left maxillary sinus. Vascular calcification distal internal carotid arteries bilatera lly IMPRESSION: No acute intracranial hemorrhage or midline shift. There is mild diffuse cerebral atrop hy and chronic small vessel ischemic change redemonstrated. No significant change from prior.
[2020-01-02 13:01] LABS: Albumin 3.4 g/dL (3.5-5.0); Calcium 8.7 mg/dL (8.4-10.2); Magnesium 2.5 mg/dL (1.6-2.3); Partial Thromboplastin Time 27.4 sec (22.0-30.0); Potassium 3.9 mmol/L (3.5-5.1); Prothrombin Time 10.8 sec (9.0-12.0); Total Bilirubin 2.1 mg/dL (0.2-1.3)
--- NOTE | 2020-01-02 13:12 | XR ---
EXAMINATION TYPE: XR chest 2V DATE OF EXAM: 01/02/2020 COMPARISON: Chest x-ray March 22, 2019 HISTORY: Weakness. TECHNIQUE: Frontal and lateral views of the chest are obtained. FINDINGS: There is persistent cardiomegaly with dual-lead pacemaker/defibrillator and atheroscleroti c aorta redemonstrated. Chronic parenchymal changes bilaterally without suspicious focal airspace [place], pleural effusion, or pneumothorax seen. The osseous structures are intact. IMPRESSION: Chronic changes and cardiomegaly without acute pulmonary process. No significant change from prior.
[2020-01-02] MEDS ORDERED: SCOPOLAMINE 1.5MG/72HR PATCH TRANSDERM STA (14:00)
[2020-01-02] MEDS ORDERED: diazePAM 5 MG TAB PO STA (14:00)
[2020-01-02] MEDS ORDERED: NALOXONE 0.4 MG/ML 1 ML VIAL IV PRN (14:04)
[2020-01-02 14:34] LABS: Amylase 51 U/L (30-110); Lipase 154 U/L (23-300)
--- NOTE | 2020-01-02 15:11 | US ---
EXAMINATION TYPE: US gallbladder DATE OF EXAM: 01/02/2020 COMPARISON: CT CLINICAL HISTORY: Transaminitis. Nausea EXAM MEASUREMENTS: Liver Length: 14.6 cm Gallbladder Wall: 0.2 cm CBD: 0.3 cm Right Kidney: 11.1 x 5.9 x 7.0 cm Pancreas: Tail obscured by overlying bowel gas Liver: no masses seen Gallbladder: multiple, nonmobile and shadowing stones seen in neck of gallbladder Evidence for sonographic Cole's sign: no CBD: wnl Right Kidney: No hydronephrosis seen Small calcification = 0.2 x 0.2 x 0.1cm seen mid pole. IMPRESSION: There are numerous gallstones at the gallbladder neck. No dilated ducts. No focal liver d efect.
[2020-01-02] MEDS: SODIUM CHLORIDE 0.9% 1,000 ML IV SCH ×2 (16:16→21:31)
[2020-01-02] MEDS: MECLIZINE 25 MG TAB PO SCH ×2 (16:20→21:31)
--- NOTE | 2020-01-02 17:11 | P.HPIM ---
History of Present Illness H&P Date: 01/02/20 Chief Complaint: Vertigo This is a 79-year-old male with very complex past medical history presented to the emergency department with worsening dizziness and headache. Patient said that his symptoms started a week ago with a spinning sensation and getting very dizzy when he tried to stand up. He was also having headache mostly in the back of his head. He denies any fevers or chills. No flulike symptoms. Patient said that he was diagnosed with otitis media of the left ear by his PCP last week and was started on antibiotic and tomorrow is his last day of antibiotic. He denies any pain in his ear or drainage. He said that today he is getting very dizzy standing up and was concerned he may pass out so he decided to come to the emergency room. He otherwise denies any chest pain or palpitation. No recent change in his medications. He was evaluated in the ER and was noted to have evidence of acute hepatitis. Patient denies any alcohol use. He does not take Tylenol excessively. He denies any recent changes in his medication. He has been taking Lipitor for a long time. Review of Systems Review of system: 14 points review of systems were obtained and were negative except to what were mentioned in the HPI. Past Medical History Past Medical History: Coronary Artery Disease (CAD), Cancer, Chest Pain / Angina, Heart Failure, COPD, Diabetes Mellitus, Eye Disorder, Hyperlipidemia, Hypertension, Myocardial Infarction (MD), Osteoarthritis (OA), Pneumonia, Prostate Disorder, Pulmonary Embolus (PE), Renal Disease Additional Past Medical History / Comment(s): NIDDM type II, chronic kidney disease stage III, R eye glaucoma, tracheobronchitis, ischemic cardiomyopathy with AICD, pulmonary emboli L lung, prostatitis, prostate cancer with surgery, UTI, chronic haider/cervical and bilateral shoulder pain, back pain, gout, fatty tumor R back Last Myocardial Infarction Date:: 10/18/16 History of Any Multi-Drug Resistant Organisms: None Reported Past Surgical History: AICD, Back Surgery, Heart Catheterization, Heart Catheterization With Stent, Hernia Repair, Pacemaker, Prostate Surgery Additional Past Surgical History / Comment(s): CARDIOVERSION/WORE LEFE VEST UNTIL AICD/pacer IMPLANTED 01-10-17.. lumbar surgery twice, cervical epidural injections, bilateral inguinal hernia repairs, TURP, colonoscopy, bilateral cataract removals. Past Anesthesia/Blood Transfusion Reactions: No Reported Reaction Date of Last Stent Placement:: 10/18/16 Type of Cardiac Device: AICD Device Placement Date:: 01-10-17 Past Psychological History: No Psychological Hx Reported Additional Psychological History / Comment(s): Pt is independent. Lives with his in a single level home that has 1 porch step to enter home. No assistive devices. Pt drives. No pets. No homecare services. No past service. Retired from [employer] work). Smoking Status: Never smoker Past Alcohol Use History: None Reported Additional Past Alcohol Use History / Comment(s): started smoking as teen, quit 1982 was smoking 2ppd Past Drug Use History: None Reported - Past Family History Mother Family Medical History: Unable to Obtain Additional Family Medical History / Comment(s): Mother of unknown cause. Father Family Medical History: Unable to Obtain Additional Family Medical History / Comment(s): Father of unknown cause. Medications and Allergies Home Medications Medication Instructions Recorded Confirmed Type Latanoprost [Xalatan 0.005%] 1 drop BOTH EYES HS 10/18/16 01/02/20 History metFORMIN HCL ER [Glucophage Xr] 500 mg PO AC-SUPPER 10/18/16 01/02/20 History Atorvastatin [Lipitor] 40 mg PO AC-SUPPER 01/07/17 01/02/20 History Gabapentin [Neurontin] 300 mg PO QID 04/05/17 01/02/20 History Losartan [Cozaar] 50 mg PO DAILY@0700 03/22/19 01/02/20 History Amoxic-Pot Clav 875-125Mg 1 tab PO BID@0700,1700 01/02/20 01/02/20 History [Augmentin 875-125] Apixaban [Eliquis] 5 mg PO BID@0700,1700 01/02/20 01/02/20 History Brimonidine Tartrate/Timolol 1 drop BOTH EYES HS 01/02/20 01/02/20 History [Combigan 0.2%-0.5% Eye Drops] Calcium Polycarbophil [Fiber-Lax] 1,250 mg PO BID@0700,1700 01/02/20 01/02/20 History Furosemide [Lasix] 80 mg PO BID@0700,1700 01/02/20 01/02/20 History Naproxen [Naprosyn] 375 mg PO BID@0700,1700 01/02/20 01/02/20 History carvediloL [Coreg] 6.25 mg PO HS@1700 01/02/20 01/02/20 History carvediloL [Coreg] 12.5 mg PO DAILY@0700 01/02/20 01/02/20 History Allergies Allergy/AdvReac Type Severity Reaction Status Date / Time spironolactone Allergy Unknown Verified 01/02/20 15:13 hydrocodone bitartrate AdvReac Confusion Verified 01/02/20 15:13 [From Vicodin] Physical Exam Vitals: Vital Signs Temp Pulse Pulse Pulse Pulse Pulse Resp 01/02/20 16:29 53 L 56 L 57 L 01/02/20 15:00 95.7 F L 57 L 16 01/02/20 14:11 57 L 16 01/02/20 12:45 58 L 22 01/02/20 12:15 97.3 F L 58 L 24 BP BP BP BP BP Pulse Ox 01/02/20 16:29 157/66 131/58 132/67 01/02/20 15:00 142/75 98 01/02/20 14:11 154/88 98 01/02/20 12:45 146/75 99 01/02/20 12:15 129/83 98 Intake and Output 01/02/20 01/02/20 01/02/20 06:59 14:59 22:59 Intake Total 0 Balance 0 Intake: Oral 0 Other: Weight 108.862 kg General: The patient is awake and alert, in no distress Eye: there is normal conjunctiva bilaterally. Neck: The neck is supple, there is no JVD. Cardiovascular: Normal S1-S2, no S3-S4, no murmurs. Respiratory: Lungs clear to auscultation bilaterally Gastrointestinal: Abdomen is soft, nontender Musculoskeletal: There is no pedal edema. Neurological:. Speech is normal. Skin: Skin is warm and dry Results CBC & Chem 7: 01/02/20 12:40 01/02/20 12:40 Labs: Abnormal Lab Results - Last 24 Hours (Table) 01/02/20 01/02/20 Range/Units 12:40 12:40 RBC 3.85 L (4.30-5.90) m/uL Hgb 12.2 L (13.0-17.5) gm/dL Hct 37.6 L (39.0-53.0) % Plt Count 124 L (150-450) k/uL Lymphocytes # 0.5 L (1.0-4.8) k/uL BUN 36 H (9-20) mg/dL Creatinine 2.45 H (0.66-1.25) mg/dL Glucose 143 H (74-99) mg/dL Magnesium 2.5 H (1.6-2.3) mg/dL Total Bilirubin 2.1 H (0.2-1.3) mg/dL AST 454 H (17-59) U/L ALT 637 H (4-49) U/L Alkaline Phosphatase 301 H (38-126) U/L Albumin 3.4 L (3.5-5.0) g/dL Thrombosis Risk Factor Assmnt - Choose All That Apply Each Risk Factor Represents 3 Points: Age 75 years or older, History of DVT/PE Thrombosis Risk Factor Assessment Total Risk Factor Score: 6 Thrombosis Risk Factor Assessment Level: High Risk Assessment and Plan Assessment: 1. Dizziness with headache, most likely vertigo. Patient was started on a trial of meclizine. Orthostatic blood pressure checked and negative. Computed tomography scan of the brain in the ER was no acute findings. Neurology consulted for further evaluation. 2. Sinus bradycardia, may be attributed to Coreg use. I would continue telemetry monitoring. Decrease Coreg dose to 3.125 mg twice daily and continue to monitor. Check thyroid function test. 3. Transaminitis, exact etiology unclear. We will hold Lipitor for now. Acute hepatitis panel ordered. Patient denies alcohol or excessive Tylenol use. 4. History of coronary artery disease with known ischemic cardiomyopathy status post AICD. Echocardiogram in March showed EF of 25-30%. Continue medical management. No evidence of exacerbation. 5. History of pulmonary embolism on anticoagulation with Eliquis 6. Recently diagnosed otitis media of the left ear, currently on Augmentin tomorrow day 09/13 7. Stage IIIB chronic kidney disease. Creatinine. Around baseline of 2.5. Patient was counseled extensively to avoid NSAIDs 8. Type 2 diabetes, on metformin and continue sliding scale insulin. Counseled to have further discussion with his PCP regarding metformin and his CKD The patient is placed in observation with an anticipated less than 2 midnight stay for evaluation of the medical problems noted above. CODE STATUS: Full code Anticipated discharge date: To be determined based on clinical course Anticipated discharge place: Home A total of 45 minutes was spent on the care of this complex patient more than 5 0% of the time was spent in counseling and care coordination.
[2020-01-02] MEDS ORDERED: ATORVASTATIN 40 MG TAB PO SCH (17:30)
[2020-01-02 17:32] LABS: Glucose,Whole Blood 95 mg/dL (75-99)
[2020-01-02] MEDS: INSULIN ASPART (NovoLOG) 100 UNIT/ML VIAL SQ SCH ×2 (17:34→21:31)
[2020-01-02] MEDS: AMOXIC-POT CLAV 500-125 MG 1 EACH TAB PO SCH (17:44)
[2020-01-02] MEDS: GABAPENTIN 300 MG CAP PO SCH ×2 (17:45→21:31)
[2020-01-02] MEDS: carvediloL 3.125 MG TAB PO SCH (17:45)
[2020-01-02] MEDS: METOCLOPRAMIDE 5 MG/ML 2 ML VIAL IVP SCH (17:45)
[2020-01-02] MEDS: BRIMONIDINE TARTRATE 0.2% DROPS 5 ML BTL BOTH EYES SCH (19:58)
[2020-01-02] MEDS: TIMOLOL 0.5% OPHTH DROPS 5 ML BTL BOTH EYES SCH (19:59)
[2020-01-02] MEDS: LATANOPROST 0.005% OPHTH DROPS 2.5 ML BTL BOTH EYES SCH (19:59)
[2020-01-02] MEDS ORDERED: NON FORMULARY DRUG (Brimonidine Tartrate/Timolol [Combigan 0.2%-0.5% Eye Drops] 5 ML Drops BOTH EYES SCH (21:00)
[2020-01-02 21:24] LABS: Glucose,Whole Blood 183 mg/dL (75-99)
[2020-01-02 23:17] LABS: Hepatitis A Antibody IgM Non-Reactive (Non-Reactive); Hepatitis B Core IgM Non-Reactive (Non-Reactive); Hepatitis B Surface Antigen Non-Reactive (Non-Reactive); Hepatitis C IgG Antibody Non-Reactive (Non-Reactive)
[2020-01-03] MEDS: METOCLOPRAMIDE 5 MG/ML 2 ML VIAL IVP SCH ×5 (00:27→23:43)
[2020-01-03] MEDS: AMOXIC-POT CLAV 500-125 MG 1 EACH TAB PO SCH (06:09)
[2020-01-03] MEDS: APIXABAN 5 MG TAB PO SCH ×2 (06:09→16:19)
[2020-01-03] MEDS: SODIUM CHLORIDE 0.9% 1,000 ML IV SCH ×3 (06:09→20:03)
[2020-01-03] MEDS: LOSARTAN 50 MG TAB PO SCH (06:10)
[2020-01-03] MEDS: carvediloL 3.125 MG TAB PO SCH ×2 (06:10→17:31)
[2020-01-03] MEDS: INSULIN ASPART (NovoLOG) 100 UNIT/ML VIAL SQ SCH ×4 (06:49→19:58)
[2020-01-03 06:51] LABS: Albumin 3.1 g/dL (3.5-5.0); Calcium 8.5 mg/dL (8.4-10.2); Potassium 4.7 mmol/L (3.5-5.1); Total Bilirubin 1.8 mg/dL (0.2-1.3); Total Protein 6.4 g/dL (6.3-8.2)
[2020-01-03 06:52] LABS: Basophils % (A) 0 %; Eosinophils # (A) 0.2 k/uL (0-0.7); Eosinophils % (A) 3 %; HCT 37.2 % (39.0-53.0); HGB 11.4 gm/dL (13.0-17.5); Hypochromasia Slight; Lymphocytes # (A) 0.8 k/uL (1.0-4.8); Lymphocytes % (A) 11 %; MCH 30.4 pg (25.0-35.0); MCHC 30.7 g/dL (31.0-37.0); MCV 99.1 fL (80.0-100.0); Macrocytosis Slight; Mean Platelet Volume 8.5; Monocytes # (A) 0.5 k/uL (0-1.0); Monocytes % (A) 7 %; Neutrophils # (A) 6.2 k/uL (1.3-7.7); Neutrophils % (A) 78 %; Platelet Count 115 k/uL (150-450); RBC 3.75 m/uL (4.30-5.90); RDW 15.3 % (11.5-15.5); WBC 7.9 k/uL (3.8-10.6)
[2020-01-03 06:52] LABS: Glucose,Whole Blood 97 mg/dL (75-99)
[2020-01-03] MEDS ORDERED: FUROSEMIDE 80 MG TAB PO SCH (07:00)
[2020-01-03] MEDS: GABAPENTIN 300 MG CAP PO SCH ×2 (08:29→19:54)
[2020-01-03] MEDS: PANTOPRAZOLE 40 MG/10 ML VIAL IV SCH (08:29)
[2020-01-03] MEDS: MECLIZINE 25 MG TAB PO SCH ×3 (08:29→23:43)
--- NOTE | 2020-01-03 11:24 | P.CNNES ---
History of Present Illness Consult date: 01/03/20 Requesting physician: Saw Lopez Reason for Consult: dizziness History of Present Illness: This is a 79-year-old gentleman with medical history of coronary artery disease, hypertension, diabetes mellitus type 2, hyperlipidemia, chronic kidney insufficiency, glaucoma of the right eye, ischemic cardiomyopathy status post AICD, pulmonary emboli, prostate cancer status post resection that presented to the emergency department on 01/02/2020 for worsening dizziness for the past one week. Patient stated that the symptoms started about a week ago with spinning sensation and getting very dizzy when the patient tried to stand up. He said the dizziness feels as if the room spinning around him. He notices that the dizziness with that position. With resting that. He denies any visual disturbance associated with this. He does have nausea but no vomiting. He denies any ringing in the ears. But he has a some hearing loss out of the left ear and that since the patient has been having otitis media. Denies any focal weakness, sensory loss or difficulty swallowing. Denies any difficulty getting his words out or slurring his speech. Since he's been in the hospital he feels his the dizziness has been met and improving. Patient denies of passing out episode. He was diagnosed with otitis media of the left ear by his primary care physician 1 week ago and started antibiotic, and his antibiotic was supposed to be last the next day after presenting to the hospital. He denies of any ear discharge. Patient denies of any fever, chills. Denies of any palpitation or chest pain. Workup in the hospital consisted of: CT of the head which was reported as no acute intracranial hemorrhage or midline shift. There is mild diffuse cerebral atrophy and chronic small vessel ischemic changes redemonstrated. No significant change from prior. I reviewed the CT of the head and I did not feel there is any acute ischemia or hemorrhage. No encephalomalacia that was appreciated. EKG was reported as electronic atrial pacemaker. Ventricular rate of 58. T wave abnormality, consider anterolateral ischemia. Prolonged QT. Abnormal EKG. Orthostatic vitals was a pressure supine was 132/67 with a heart rate of 57. Sitting was 157/66 with a heart rate of 53 and standing the blood pressure was 131/58 with a heart rate of 56. Because of the decrease of the systolic blood pressure from the sitting to standing of more than 20 this is suggestive of a positive orthostatic hypotension. AST of 454, ALTs of 637. Alkaline Phosphatase of 301. Lipase of 154. In the ED was felt the patient had acute hepatitis. Patient denies of alcohol use or excessive Tylenol use. He does acknowledge that he takes Lipitor for lo ng time. Review of Systems Review of system: The 12 point system was reviewed and apparent positive and negative per HPI. Past Medical History Past Medical History: Coronary Artery Disease (CAD), Cancer, Chest Pain / Angina, Heart Failure, COPD, Diabetes Mellitus, Eye Disorder, Hyperlipidemia, Hypertension, Myocardial Infarction ([place]), Osteoarthritis (OA), Pneumonia, Prostate Disorder, Pulmonary Embolus ([place]), Renal Disease Additional Past Medical History / Comment(s): NIDDM type II, chronic kidney disease stage III, R eye glaucoma, tracheobronchitis, ischemic cardiomyopathy with AICD, pulmonary emboli L lung, prostatitis, prostate cancer with surgery, UTI, chronic haider/cervical and bilateral shoulder pain, back pain, gout, fatty tumor R back Last Myocardial Infarction Date:: 10/18/16 History of Any Multi-Drug Resistant Organisms: None Reported Past Surgical History: AICD, Back Surgery, Heart Catheterization, Heart Catheterization With Stent, Hernia Repair, Pacemaker, Prostate Surgery Additional Past Surgical History / Comment(s): CARDIOVERSION/WORE LEFE VEST UNTIL AICD/pacer IMPLANTED 01-10-17.. lumbar surgery twice, cervical epidural injections, bilateral inguinal hernia repairs, TURP, colonoscopy, bilateral cataract removals. Past Anesthesia/Blood Transfusion Reactions: No Reported Reaction Date of Last Stent Placement:: 10/18/16 Type of Cardiac Device: AICD Device Placement Date:: 01-10-17 Past Psychological History: No Psychological Hx Reported Additional Psychological History / Comment(s): Pt is independent. Lives with his in a single level home that has 1 porch step to enter home. No assistive devices. Pt drives. No pets. No homecare services. No past service. 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 Smoking Status: Never smoker Past Alcohol Use History: None Reported Additional Past Alcohol Use History / Comment(s): started smoking as teen, quit 1983 was smoking 2ppd Past Drug Use History: None Reported - Past Family History Mother Family Medical History: Unable to Obtain Additional Family Medical History / Comment(s): Mother of unknown cause. Father Family Medical History: Unable to Obtain Additional Family Medical History / Comment(s): Father of unknown cause. Medications and Allergies Home Medications Medication Instructions Recorded Confirmed Type Latanoprost [Xalatan 0.005%] 1 drop BOTH EYES HS 10/18/16 01/02/20 History metFORMIN HCL ER [Glucophage Xr] 500 mg PO AC-SUPPER 10/18/16 01/02/20 History Atorvastatin [Lipitor] 40 mg PO AC-SUPPER 01/07/17 01/02/20 History Gabapentin [Neurontin] 300 mg PO QID 04/05/17 01/02/20 History Losartan [Cozaar] 50 mg PO DAILY@0700 03/22/19 01/02/20 History Amoxic-Pot Clav 875-125Mg 1 tab PO BID@0700,1700 01/02/20 01/02/20 History [Augmentin 875-125] Apixaban [Eliquis] 5 mg PO BID@0700,1700 01/02/20 01/02/20 History Brimonidine Tartrate/Timolol 1 drop BOTH EYES HS 01/02/20 01/02/20 History [Combigan 0.2%-0.5% Eye Drops] Calcium Polycarbophil [Fiber-Lax] 1,250 mg PO BID@0700,1700 01/02/20 01/02/20 History Furosemide [Lasix] 80 mg PO BID@0700,1700 01/02/20 01/02/20 History Naproxen [Naprosyn] 375 mg PO BID@0700,1700 01/02/20 01/02/20 History carvediloL [Coreg] 6.25 mg PO HS@1700 01/02/20 01/02/20 History carvediloL [Coreg] 12.5 mg PO DAILY@0700 01/02/20 01/02/20 History Allergies Allergy/AdvReac Type Severity Reaction Status Date / Time spironolactone Allergy Unknown Verified 01/02/20 15:13 hydrocodone bitartrate AdvReac Confusion Verified 01/02/20 15:13 [From Vicodin] Physical Examination - Vital Signs Vital Signs: Vital Signs Temp Pulse Pulse Pulse Pulse Pulse Resp 01/03/20 03:00 97.9 F 68 18 01/02/20 19:52 64 18 01/02/20 19:43 97.8 F 64 18 01/02/20 16:29 53 L 56 L 57 L 01/02/20 15:00 95.7 F L 57 L 16 01/02/20 14:11 57 L 16 01/02/20 12:45 58 L 22 01/02/20 12:15 97.3 F L 58 L 24 BP BP BP BP BP Pulse Ox 01/03/20 03:00 123/64 94 L 01/02/20 19:52 01/02/20 19:43 139/63 94 L 01/02/20 16:29 157/66 131/58 132/67 01/02/20 15:00 142/75 98 01/02/20 14:11 154/88 98 01/02/20 12:45 146/75 99 01/02/20 12:15 129/83 98 Intake and Output 01/02/20 01/03/20 01/03/20 22:59 06:59 14:59 Intake Total 1500 Output Total 950 675 Balance -950 825 Intake: IV 1500 Sodium Chloride 0.9% 1, 1500 000 ml @ 125 mls/hr IV . Q8H [facility] Rx#:[id number] Output: Urine 950 675 Other: Voiding Method Urinal Urinal # Voids 1 1 # Bowel Movements 1 GENERAL: The patient is lying in bed and is not in acute distress. CHEST: The heart rate is regular rate rhythm. No murmurs to auscultation. No carotid bruit bilaterally. LUNG: Clear to auscultation bilaterally no wheezing noted throughout. Not labored breathing. ABDOMEN/GI: Bowel sounds present in all 4 quadrants. No tenderness to palpation throughout. NEUROLOGICAL: Higher mental function: The patient is awake, alert, oriented to self, place and time. Patient is following commands. No aphasia and no neglect. Cranial nerves: The pupils are round, equal (3mm bilaterally) and reactive to light Visual cortes is full to confrontation on the left but had only sees center on right eye (as result of glaucoma) but intact to threat on the right. Has hard time opening the right eye fully (because of glaucoma). Extraocular movement is intact no nystagmus is noted. Facial sensation is normal to touch throughout. The facial strength is normal throughout. Hearing is normal bilaterally to hand rub. Tongue is midline and moved [id number] without any difficulty. No dysarthria is noted. Shoulder shrug is normal bilaterally. Motor: Gait is normal. The strength is 5 over 5 throughout. Normal tone and bulk. Cerebellum: Normal finger to nose and heel to pickett bilaterally. Sensation: Sensation is normal to touch throughout. Reflexes (right/left): 1+ Plantars are downgoing bilaterally. Results Calcium 8.7. Total bilirubin is 2.1. - Laboratory Findings CBC and BMP: 01/03/20 06:10 01/03/20 06:10 Abnormal Lab Findings: Abnormal Labs 01/02/20 01/02/20 01/02/20 12:40 12:40 21:22 RBC 3.85 L Hgb 12.2 L Hct 37.6 L MCHC Plt Count 124 L Lymphocytes # 0.5 L Chloride BUN 36 H Creatinine 2.45 H Glucose 143 H POC Glucose (mg/dL) 183 H Magnesium 2.5 H Total Bilirubin 2.1 H AST 454 H ALT 637 H Alkaline Phosphatase 301 H Albumin 3.4 L 01/03/20 01/03/20 06:10 06:10 RBC 3.75 L Hgb 11.4 L Hct 37.2 L MCHC 30.7 L Plt Count 115 L Lymphocytes # 0.8 L Chloride 109 H BUN 31 H Creatinine 2.21 H Glucose 102 H POC Glucose (mg/dL) Magnesium Total Bilirubin 1.8 H AST 252 H ALT 464 H Alkaline Phosphatase 273 H Albumin 3.1 L Assessment and Plan Assessment: Mr. Vega is a 79 y/o gentleman with multiple medical problems that presented to the emergency department on 01/02/2020 for worsening dizziness for the past one week. Vertigo is aggravated with position and alleviated with rest. Vertigo secondary due to orthostatic hypotension as well as possibly due to labyrinthitis especially with a history of otitis media for 1 week Positive Orthostatic hypotension Acute hepatitis Chronic kidney insufficiency Hyperlipidemia Diabetes mellitus type 2 Ischemic cardiomyopathy status post AICD Pulmonary emboli Prostate cancer status post resection Plan: Repeat Orthostatic: Supoine 131/76 with heart rate 69; Sitting 138/78 with heart rate 61 and standin/66 with heart rate 71. Regarding the patient's vertigo with a positive orthostatic hypertension: Spoke with primary team and cannot start patient on Midodrine or Fludicortisone because of heart failure which he is getting diuretics. Recommend compression stocking and chest binder as initial management. If fails consider Midodrine if possible. Patient is currently on meclizine 25 mg by mouth 3 times a day and recommended c ontinuing it since there could be a component of the labyrinthitis because of the acute otitis media. Regarding the patient the hepatitis will defer the management to the primary team. Thank you for the consult. No further work-up is needed. Arash Gage M.D. Neuro-hospitalist Time with Patient: Greater than 30
[2020-01-03 11:35] LABS: Glucose,Whole Blood 109 mg/dL (75-99)
--- NOTE | 2020-01-03 12:39 | P.PN ---
Subjective Progress Note Date: 01/03/20 Principal diagnosis: dizziness Patient is a 79 yo CM with a history of chronic headache, coronary artery disease, diabetes, hypertension, dyslipidemia, ischemic cardiomyopathy with AICD, and multiple other comorbid conditions who presented to the hospital with complaints of worsening dizziness and a headache. He had recently been diagnosed with acute otitis media and started on Augmentin by his primary care physician. On arrival to the ER he was slightly bradycardic with a pulse of 58 his blood pressure was 129/83 and his O2 sat was 98% on room air. Initial laboratory analysis showed hemoglobin 12.2, hematocrit 37.6 and platelets 124. BUN 36, creatinine 2.45 with baseline creatinine of 2.2. Magnesium 2.5, bilirubin 2.1, AST 454, and ALT 637. CT head demonstrated no intracranial hemorrhage or midline shift with diffuse cerebral atrophy and chronic small vessel ischemic changes. He was started on IV fluids and admitted. Orthostatic vitals were positive. He underwent a gallbladder ultrasound which showed multiple gallstones within the gallbladder neck but no dilated ducts. He was seen by neurology who felt this was likely orthostatic hypotnesion but could still have a component of labyrinthitis.. His lasix was held and IV fluid continued. Surgery was consulted. Patient seen and examined at bedside. He denies any abdominal pain, nausea or vomiting. He states he has been up and ambulating without difficulty and the dizziness is much improved with Antivert. Objective - Vital Signs Vital signs: Vital Signs Temp 97.7 F 01/03/20 08:28 Pulse 69 01/03/20 09:57 Resp 16 01/03/20 09:00 BP 131/76 01/03/20 09:57 Pulse Ox 91 L 01/03/20 08:28 Intake & Output 01/02/20 01/03/20 01/03/20 18:59 06:59 18:59 Intake Total 0 1500 Output Total 1625 500 Balance 0 -125 -500 Weight 108.862 kg Intake: IV 1500 Sodium Chloride 0.9% 1, 1500 000 ml @ 125 mls/hr IV . Q8H [facility] Rx#:[id number] Oral 0 Output: Urine 1625 500 Other: Voiding Method Urinal Urinal # Voids 1 1 # Bowel Movements 1 - Exam General: non toxic, no distress, appears at stated age Derm: warm, dry Head: atraumatic, normocephalic, symmetric Eyes: EOMI, no lid lag, anicteric sclera Mouth: no lip lesion, mucus membranes moist Ears: TM clear bilateral without bogginess, normal cone of light. Cardiovascular: S1S2 reg, no murmur, positive posterior tibial pulse bilateral, Lungs: CTA bilateral, no rhonchi, no rales , no accessory muscle use Abdominal: soft, nontender to palpation, no guarding, no appreciable organomegaly Ext: no gross muscle atrophy, no edema, no contractures Neuro: CN II-XI grossly intact, no focal neuro deficits Psych: Alert, oriented, appropriate affect - Labs CBC & Chem 7: 01/03/20 06:10 01/03/20 06:10 Labs: Abnormal Lab Results - Last 24 Hours (Table) 01/02/20 01/02/20 01/02/20 Range/Units 12:40 12:40 21:22 RBC 3.85 L (4.30-5.90) m/uL Hgb 12.2 L (13.0-17.5) gm/dL Hct 37.6 L (39.0-53.0) % MCHC (31.0-37.0) g/dL Plt Count 124 L (150-450) k/uL Lymphocytes # 0.5 L (1.0-4.8) k/uL Chloride (98-107) mmol/L BUN 36 H (9-20) mg/dL Creatinine 2.45 H (0.66-1.25) mg/dL Glucose 143 H (74-99) mg/dL POC Glucose (mg/dL) 183 H (75-99) mg/dL Magnesium 2.5 H (1.6-2.3) mg/dL Total Bilirubin 2.1 H (0.2-1.3) mg/dL AST 454 H (17-59) U/L ALT 637 H (4-49) U/L Alkaline Phosphatase 301 H (38-126) U/L Albumin 3.4 L (3.5-5.0) g/dL 01/03/20 01/03/20 01/03/20 Range/Units 06:10 06:10 11:34 RBC 3.75 L (4.30-5.90) m/uL Hgb 11.4 L (13.0-17.5) gm/dL Hct 37.2 L (39.0-53.0) % MCHC 30.7 L (31.0-37.0) g/dL Plt Count 115 L (150-450) k/uL Lymphocytes # 0.8 L (1.0-4.8) k/uL Chloride 109 H (98-107) mmol/L BUN 31 H (9-20) mg/dL Creatinine 2.21 H (0.66-1.25) mg/dL Glucose 102 H (74-99) mg/dL POC Glucose (mg/dL) 109 H (75-99) mg/dL Magnesium (1.6-2.3) mg/dL Total Bilirubin 1.8 H (0.2-1.3) mg/dL AST 252 H (17-59) U/L ALT 464 H (4-49) U/L Alkaline Phosphatase 273 H (38-126) U/L Albumin 3.1 L (3.5-5.0) g/dL Assessment and Plan Assessment: Orthostatic hypotension - Continue IVF - Hold lasix - recheck in the afternoon - consider decreased cozaar dose. Transaminitis with gallstone - Clear liquids - Pain control - surgery consult Sinus bradycardia - tele - continue with coreg DM 2 - on metformin at home but needs to follow with PCP if this is in his best interest at this Cr level. - SSI - Follow BS - A1C 12/09/2019 5.9 CKD IV - at baseline - Cr stable - Dose reduce gabapentin for Cr clearance, patient self titrated to 4 times daily regiment CAD with known ischemic cardiomyopathy s/p AICD - coreg - cozaar HX of Pulmonary embolism on eliquis Thrombocytopenia - follow CBC DVT prophylaxis: Eliquis Discussed with: patient, nursing Anticipated discharge: awaiting surgery recs Anticipated discharge place: home with home health A total of 35 minutes was spent on the care of this complex patient more than 50% of the time was spent in counseling and care coordination.
--- NOTE | 2020-01-03 12:56 | P.GSCN ---
<Kim Crockett - Last Filed: 01/03/20 12:46> History of Present Illness Consult date: 01/03/20 History of present illness: CHIEF COMPLAINT: Dizziness HISTORY OF PRESENT ILLNESS: this is a 79-year-old male with a known history of PE anticoagulated with Eliquis, chronic kidney disease, diabetes mellitus type 2, ischemic cardiomyopathy with AICD and a known EF of 25-30%, prostate cancer status post resection, hyperlipidemia and a left and right inguinal hernia repair. Patient presents to the emergency room with complaints of dizziness and headache. He is being worked up by neurology and medicine for possible orthostatic hypotension and labyrinthitis contributing to his symptoms. He i he was treated for an left otitis media with Augmentin by his PCP. He was found to have elevated liver enzymes on admission. He denies any abdominal pain. Denies any nausea or vomiting, fever chills or sweats. He denies any abdominal pain after eating greasy or spacey meals. He does take Lipitor at home. This has been discontinued. He does report a history of alcohol use with a couple of be ers daily and whiskey, but Reports stopping alcohol in . Patient denies any excessive Tylenol use. Patient did have an abdominal ultrasound that showed numerous gallstones at the gallbladder neck. No dilated ducts. No focal liver defect. PAST MEDICAL HISTORY: See list. PAST SURGICAL HISTORY: See list. MEDICATIONS: See list. ALLERGIES: See list. SOCIAL HISTORY: No illicit drug use. REVIEW OF SYSTEMS: CONSTITUTIONAL: Denies fever or chills. HEENT: Denies blurred vision, vision changes, or eye pain. Denies hemoptysis CARDIOVASCULAR: Denies chest pain or pressure. RESPIRATORY: No shortness of breath. GASTROINTESTINAL: See HPI for pertinent findings HEMATOLOGIC: Denies bleeding disorders. GENITOURINARY: Denies any blood in urine or increased urinary frequency. SKIN: Denies pruitis. Denies rash. PHYSICAL EXAM: VITAL SIGNS: Reviewed GENERAL: Well-developed in no acute distress. HEENT: No sclera icterus. Extraocular movements grossly intact. Moist buccal mucosa. Head is atraumatic, normocephalic. No nasal drainage. ABDOMEN: Soft. Obese. Nondistended. Nontender with palpation NEUROLOGIC: Alert and oriented. Cranial nerves II through XII grossly intact. LABORATORY DATA: Total bili 2.1 down to 1.8, AST 454 down to 252, ALT 637 down to 464, alk phos 301 down to 273, lipase 154 amylase 51 hepatitis panel negative IMAGING: abdominal ultrasound that showed numerous gallstones at the gallbladder neck. No dilated ducts. No focal liver defect. ASSESSMENT: 1. Numerous gallstones at the gallbladder neck with elevated transaminases need to rule out choledocholithiasis 2. History of PE anticoagulated with Eliquis 3. History of prostate cancer status post resection 4. Chronic kidney disease 5. Diabetes mellitus type 2 6. Ischemic cardiomyopathy with AICD 7. dizziness possibly related to orthostatic hypotension or labyrinthitis PLAN: -recommend GI evaluation for possible choledocholithiasis -Continue IV fluids -Agree with holding Lipitor -Continue to monitor LFTs Thank you for this consultation Physician Family Life Counselor note has been reviewed by physician. Signing provider agrees with the documented findings, assessment, and plan of care. Past Medical History Past Medical History: Coronary Artery Disease (CAD), Cancer, Chest Pain / Angina, Heart Failure, COPD, Diabetes Mellitus, Eye Disorder, Hyperlipidemia, Hypertension, Myocardial Infarction (SC), Osteoarthritis (OA), Pneumonia, Prostate Disorder, Pulmonary Embolus (PE), Renal Disease Additional Past Medical History / Comment(s): NIDDM type II, chronic kidney disease stage III, R eye glaucoma, tracheobronchitis, ischemic cardiomyopathy with AICD, pulmonary emboli L lung, prostatitis, prostate cancer with surgery, UTI, chronic haider/cervical and bilateral shoulder pain, back pain, gout, fatty tumor R back Last Myocardial Infarction Date:: 10/18/16 History of Any Multi-Drug Resistant Organisms: None Reported Past Surgical History: AICD, Back Surgery, Heart Catheterization, Heart Catheterization With Stent, Hernia Repair, Pacemaker, Prostate Surgery Additional Past Surgical History / Comment(s): CARDIOVERSION/WORE LEFE VEST UNTIL AICD/pacer IMPLANTED 01-10-17.. lumbar surgery twice, cervical epi dural injections, bilateral inguinal hernia repairs, TURP, colonoscopy, bilateral cataract removals. Past Anesthesia/Blood Transfusion Reactions: No Reported Reaction Date of Last Stent Placement:: 10/18/16 Type of Cardiac Device: AICD Device Placement Date:: 01-10-17 Past Psychological History: No Psychological Hx Reported Additional Psychological History / Comment(s): Pt is independent. Lives with his in a single level home that has 1 porch step to enter home. No assistive devices. Pt drives. No pets. No homecare services. No past service. 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 Smoking Status: Never smoker Past Alcohol Use History: None Reported Additional Past Alcohol Use History / Comment(s): started smoking as teen, quit 1983 was smoking 2ppd Past Drug Use History: None Reported - Past Family History Mother Family Medical History: Unable to Obtain Additional Family Medical History / Comment(s): Mother of unknown cause. Father Family Medical History: Unable to Obtain Additional Family Medical History / Comment(s): Father of unknown cause. Medications and Allergies Home Medications Medication Instructions Recorded Confirmed Type Latanoprost [Xalatan 0.005%] 1 drop BOTH EYES HS 10/18/16 01/02/20 History metFORMIN HCL ER [Glucophage Xr] 500 mg PO AC-SUPPER 10/18/16 01/02/20 History Atorvastatin [Lipitor] 40 mg PO AC-SUPPER 01/07/17 01/02/20 History Gabapentin [Neurontin] 300 mg PO QID 04/05/17 01/02/20 History Losartan [Cozaar] 50 mg PO DAILY@0700 03/22/19 01/02/20 History Amoxic-Pot Clav 875-125Mg 1 tab PO BID@0700,169901/02/20 01/02/20 History [Augmentin 875-125] Apixaban [Eliquis] 5 mg PO BID@0700,169901/02/20 01/02/20 History Brimonidine Tartrate/Timolol 1 drop BOTH EYES HS 01/02/20 01/02/20 History [Combigan 0.2%-0.5% Eye Drops] Calcium Polycarbophil [Fiber-Lax] 1,250 mg PO BID@0700,1700 01/02/20 01/02/20 History Furosemide [Lasix] 80 mg PO BID@0700,169901/02/20 01/02/20 History Naproxen [Naprosyn] 375 mg PO BID@0700,0 01/02/20 01/02/20 History carvediloL [Coreg] 6.25 mg PO HS@169901/02/20 01/02/20 History carvediloL [Coreg] 12.5 mg PO DAILY@0700 01/02/20 01/02/20 History Allergies Allergy/AdvReac Type Severity Reaction Status Date / Time spironolactone Allergy Unknown Verified 01/02/20 15:13 hydrocodone bitartrate AdvReac Confusion Verified 01/02/20 15:13 [From Vicodin] Surgical - Exam Vital Signs Temp Pulse Resp BP Pulse Ox 97.3 F L 58 L 24 129/83 98 01/02/20 12:15 01/02/20 12:15 01/02/20 12:15 01/02/20 12:15 01/02/20 12:15 Results - Labs 01/03/20 06:10 01/03/20 06:10 Abnormal Lab Results - Last 24 Hours (Table) 01/02/20 01/02/20 01/02/20 Range/Units 12:40 12:40 21:22 RBC 3.85 L (4.30-5.90) m/uL Hgb 12.2 L (13.0-17.5) gm/dL Hct 37.6 L (39.0-53.0) % MCHC (31.0-37.0) g/dL Plt Count 124 L (150-450) k/uL Lymphocytes # 0.5 L (1.0-4.8) k/uL Chloride (98-107) mmol/L BUN 36 H (9-20) mg/dL Creatinine 2.45 H (0.66-1.25) mg/dL Glucose 143 H (74-99) mg/dL POC Glucose (mg/dL) 183 H (75-99) mg/dL Magnesium 2.5 H (1.6-2.3) mg/dL Total Bilirubin 2.1 H (0.2-1.3) mg/dL AST 454 H (17-59) U/L ALT 637 H (4-49) U/L Alkaline Phosphatase 301 H (38-126) U/L Albumin 3.4 L (3.5-5.0) g/dL 01/03/20 01/03/20 01/03/20 Range/Units 06:10 06:10 11:34 RBC 3.75 L (4.30-5.90) m/uL Hgb 11.4 L (13.0-17.5) gm/dL Hct 37.2 L (39.0-53.0) % MCHC 30.7 L (31.0-37.0) g/dL Plt Count 115 L (150-450) k/uL Lymphocytes # 0.8 L (1.0-4.8) k/uL Chloride 109 H (98-107) mmol/L BUN 31 H (9-20) mg/dL Creatinine 2.21 H (0.66-1.25) mg/dL Glucose 102 H (74-99) mg/dL POC Glucose (mg/dL) 109 H (75-99) mg/dL Magnesium (1.6-2.3) mg/dL Total Bilirubin 1.8 H (0.2-1.3) mg/dL AST 252 H (17-59) U/L ALT 464 H (4-49) U/L Alkaline Phosphatase 273 H (38-126) U/L Albumin 3.1 L (3.5-5.0) g/dL Diabetes panel 01/02/20 01/03/20 Range/Units 12:40 06:10 Sodium 140 141 (137-145) mmol/L Potassium 3.9 4.7 (3.5-5.1) mmol/L Chloride 104 109 H (98-107) mmol/L Carbon Dioxide 28 27 (22-30) mmol/L BUN 36 H 31 H (9-20) mg/dL Creatinine 2.45 H 2.21 H (0.66-1.25) mg/dL Glucose 143 H 102 H (74-99) mg/dL Calcium 8.7 8.5 (8.4-10.2) mg/dL AST 454 H 252 H (17-59) U/L ALT 637 H 464 H (4-49) U/L Alkaline Phosphatase 301 H 273 H (38-126) U/L Total Protein 7.0 6.4 (6.3-8.2) g/dL Albumin 3.4 L 3.1 L (3.5-5.0) g/dL Thyroid panel 01/03/20 Range/Units 06:10 TSH 1.810 (0.465-4.680) mIU/L Calcium panel 01/02/20 01/03/20 Range/Units 12:40 06:10 Calcium 8.7 8.5 (8.4-10.2) mg/dL Albumin 3.4 L 3.1 L (3.5-5.0) g/dL Pituitary panel 01/02/20 01/03/20 Range/Units 12:40 06:10 Sodium 140 141 (137-145) mmol/L Potassium 3.9 4.7 (3.5-5.1) mmol/L Chloride 104 109 H (98-107) mmol/L Carbon Dioxide 28 27 (22-30) mmol/L BUN 36 H 31 H (9-20) mg/dL Creatinine 2.45 H 2.21 H (0.66-1.25) mg/dL Glucose 143 H 102 H (74-99) mg/dL Calcium 8.7 8.5 (8.4-10.2) mg/dL TSH 1.810 (0.465-4.680) mIU/L Adrenal panel 01/02/20 01/03/20 Range/Units 12:40 06:10 Sodium 140 141 (137-145) mmol/L Potassium 3.9 4.7 (3.5-5.1) mmol/L Chloride 104 109 H (98-107) mmol/L Carbon Dioxide 28 27 (22-30) mmol/L BUN 36 H 31 H (9-20) mg/dL Creatinine 2.45 H 2.21 H (0.66-1.25) mg/dL Glucose 143 H 102 H (74-99) mg/dL Calcium 8.7 8.5 (8.4-10.2) mg/dL Total Bilirubin 2.1 H 1.8 H (0.2-1.3) mg/dL AST 454 H 252 H (17-59) U/L ALT 637 H 464 H (4-49) U/L Alkaline Phosphatase 301 H 273 H (38-126) U/L Total Protein 7.0 6.4 (6.3-8.2) g/dL Albumin 3.4 L 3.1 L (3.5-5.0) g/dL <Héctor Ashford - Last Filed: 01/03/20 12:59> History of Present Illness History of present illness: As above. Patient with findings of elevated liver enzymes. Ultrasound shows gallstones. Patient asymptomatic. Patient also high risk for any intervention at this time. Agree with plans for GI consult to evaluate for possible choledocholithiasis. We'll follow. Surgical - Exam Vital Signs Temp Pulse Resp BP Pulse Ox 97.3 F L 58 L 24 129/83 98 01/02/20 12:15 01/02/20 12:15 01/02/20 12:15 01/02/20 12:15 01/02/20 12:15 Results - Labs 01/03/20 06:10 01/03/20 06:10 Abnormal Lab Results - Last 24 Hours (Table) 01/02/20 01/02/20 01/03/20 Range/Units 12:40 21:22 06:10 RBC 3.75 L (4.30-5.90) m/uL Hgb 11.4 L (13.0-17.5) gm/dL Hct 37.2 L (39.0-53.0) % MCHC 30.7 L (31.0-37.0) g/dL Plt Count 115 L (150-450) k/uL Lymphocytes # 0.8 L (1.0-4.8) k/uL Chloride (98-107) mmol/L BUN 36 H (9-20) mg/dL Creatinine 2.45 H (0.66-1.25) mg/dL Glucose 143 H (74-99) mg/dL POC Glucose (mg/dL) 183 H (75-99) mg/dL Magnesium 2.5 H (1.6-2.3) mg/dL Total Bilirubin 2.1 H (0.2-1.3) mg/dL AST 454 H (17-59) U/L ALT 637 H (4-49) U/L Alkaline Phosphatase 301 H (38-126) U/L Albumin 3.4 L (3.5-5.0) g/dL 01/03/20 01/03/20 Range/Units 06:10 11:34 RBC (4.30-5.90) m/uL Hgb (13.0-17.5) gm/dL Hct (39.0-53.0) % MCHC (31.0-37.0) g/dL Plt Count (150-450) k/uL Lymphocytes # (1.0-4.8) k/uL Chloride 109 H (98-107) mmol/L BUN 31 H (9-20) mg/dL Creatinine 2.21 H (0.66-1.25) mg/dL Glucose 102 H (74-99) mg/dL POC Glucose (mg/dL) 109 H (75-99) mg/dL Magnesium (1.6-2.3) mg/dL Total Bilirubin 1.8 H (0.2-1.3) mg/dL AST 252 H (17-59) U/L ALT 464 H (4-49) U/L Alkaline Phosphatase 273 H (38-126) U/L Albumin 3.1 L (3.5-5.0) g/dL Diabetes panel 01/02/20 01/03/20 Range/Units 12:40 06:10 Sodium 140 141 (137-145) mmol/L Potassium 3.9 4.7 (3.5-5.1) mmol/L Chloride 104 109 H (98-107) mmol/L Carbon Dioxide 28 27 (22-30) mmol/L BUN 36 H 31 H (9-20) mg/dL Creatinine 2.45 H 2.21 H (0.66-1.25) mg/dL Glucose 143 H 102 H (74-99) mg/dL Calcium 8.7 8.5 (8.4-10.2) mg/dL AST 454 H 252 H (17-59) U/L ALT 637 H 464 H (4-49) U/L Alkaline Phosphatase 301 H 273 H (38-126) U/L Total Protein 7.0 6.4 (6.3-8.2) g/dL Albumin 3.4 L 3.1 L (3.5-5.0) g/dL Thyroid panel 01/03/20 Range/Units 06:10 TSH 1.810 (0.465-4.680) mIU/L Calcium panel 01/02/20 01/03/20 Range/Units 12:40 06:10 Calcium 8.7 8.5 (8.4-10.2) mg/dL Albumin 3.4 L 3.1 L (3.5-5.0) g/dL Pituitary panel 01/02/20 01/03/20 Range/Units 12:40 06:10 Sodium 140 141 (137-145) mmol/L Potassium 3.9 4.7 (3.5-5.1) mmol/L Chloride 104 109 H (98-107) mmol/L Carbon Dioxide 28 27 (22-30) mmol/L BUN 36 H 31 H (9-20) mg/dL Creatinine 2.45 H 2.21 H (0.66-1.25) mg/dL Glucose 143 H 102 H (74-99) mg/dL Calcium 8.7 8.5 (8.4-10.2) mg/dL TSH 1.810 (0.465-4.680) mIU/L Adrenal panel 01/02/20 01/03/20 Range/Units 12:40 06:10 Sodium 140 141 (137-145) mmol/L Potassium 3.9 4.7 (3.5-5.1) mmol/L Chloride 104 109 H (98-107) mmol/L Carbon Dioxide 28 27 (22-30) mmol/L BUN 36 H 31 H (9-20) mg/dL Creatinine 2.45 H 2.21 H (0.66-1.25) mg/dL Glucose 143 H 102 H (74-99) mg/dL Calcium 8.7 8.5 (8.4-10.2) mg/dL Total Bilirubin 2.1 H 1.8 H (0.2-1.3) mg/dL AST 454 H 252 H (17-59) U/L ALT 637 H 464 H (4-49) U/L Alkaline Phosphatase 301 H 273 H (38-126) U/L Total Protein 7.0 6.4 (6.3-8.2) g/dL Albumin 3.4 L 3.1 L (3.5-5.0) g/dL
--- NOTE | 2020-01-03 16:33 | CONS ---
CONSULTATION DATE OF SERVICE: 01/03/2020 REASON FOR CONSULTATION: Elevated LFTs. HISTORY OF PRESENT ILLNESS: Patient is a 79-year-old pleasant white male with history of diabetes mellitus, hypertension, hyperlipidemia, ischemic cardiomyopathy with history of AICD implantation, was admitted to hospital because of his severe headaches and worsening dizziness. He was recently diagnosed with acute otitis media and was started on Augmentin about 10 days ago and his last dose was supposed to be today. In any event, he was admitted to the hospital and subsequently had a CT of the head done that did not show any evidence of intracranial bleed or CVA. There was evidence of diffuse cerebral atrophy with chronic small-vessel ischemic changes noted. While in the hospital, he was noted to have elevated LFTs with ALT and AST in the range of 454 and 637 respectively and T-bilirubin of 2.1. Repeat labs today showed a bilirubin of 1.8, AST and ALT are 252 and 464 respectively, alkaline phosphatase is 273. Hepatitis serologies for A, B, and C were negative. The patient denies any abdominal pain, reports no nausea, vomiting, never had these symptoms in the past. He denies any fever, chills, night sweats. No history of chronic liver disease. No history of alcohol use. PAST MEDICAL HISTORY: Significant for hypertension, hyperlipidemia, congestive heart failure, ischemic cardiomyopathy, degenerative joint disease, recent otitis media. PAST SURGICAL HISTORY: Significant for history of AICD implantation, cardiac catheterization, back surgery, hernia repair and prostate surgery, bilateral cataract removal. SOCIAL HISTORY: No smoking, no alcohol use. FAMILY HISTORY: Mother unknown, father unknown. MEDICATIONS: At home include , Glucophage, Lipitor, FiberCon, Neurontin, Anaprox, Plavix, Ecotrin, and Cozaar. ALLERGIES: SPIRONOLACTONE and VICODIN. REVIEW OF SYSTEMS: CARDIOPULMONARY: No chest pain. RESPIRATORY: No shortness of breath. GI: No nausea, vomiting. : No dysuria or hematuria. MUSCULOSKELETAL: Unremarkable. SKIN: Unremarkable. ENDOCRINE: Unremarkable. PSYCHIATRIC: Unremarkable. NEUROLOGY: Chronic severe headaches of one-week duration. ENT/VISION: Unremarkable. CONSTITUTIONAL: No recent weight loss. No fever, chills, night sweats. PHYSICAL EXAMINATION: He appears comfortable. No apparent distress. Vital signs are stable, blood pressure is 133/78, pulse rate 71, temperature 98.7. HEENT: Examination unremarkable, conjunctivae are pink, sclerae nonicteric, oral cavity no lesions. NECK: No JVD or lymph node enlargement. CHEST: Clear to auscultation. HEART: Regular rate and rhythm. ABDOMEN: Soft, it was nontender, nondistended. Liver and spleen were not palpable. Bowel sounds are positive, no organomegaly. EXTREMITIES: No pedal edema. SKIN: No rashes. NEURO: He is alert and oriented x3. No focal deficits. LABS: Done from yesterday, WBC 9.8, hemoglobin 12.2, platelets 124. BUN and creatinine are 36 and 2.45 respectively. T-bilirubin is 2.1, AST 454, ALT 637, alkaline phosphatase is 301, albumin is 3.4. Hepatitis serologies for A, B and C are negative. Today T bilirubin down to 1.8. AST is 252 and ALT is 464, alkaline phosphatase is 273. Ultrasound of the abdomen did show evidence of multiple gallstones but no evidence of biliary ductal dilation. No evidence of acute cholecystitis. IMPRESSION: Asymptomatic elevation of serum transaminases as well as bilirubin up to 2.1 and ALT, AST in the range of 406 and 600 in this patient who was recently treated with antibiotics for acute otitis media and has been on Augmentin. This biochemical picture is often seen with Augmentin-induced hepatitis where they have a mixed pattern of hepatocellular injury and cholestatic pattern. Ultrasound did show evidence of gallstones but no evidence of biliary ductal dilation and patient has no associated abdominal pain with makes it very unlikely we are dealing with choledocholithiasis. Hepatitis serologies for A, B and C negative. RECOMMENDATIONS: 1. Hold off Augmentin. 2. Repeat LFTs in the morning. 3. No definite indication for an ERCP at the present time as clinically I doubt we are dealing with choledocholithiasis. 4. Asymptomatic cholelithiasis. Surgery has been following the patient closely. 5. Repeat labs in the morning. 6. Will follow with you. Thank you for this consultation. MMODL / IJN: [id number] /
[2020-01-03 17:37] LABS: Glucose,Whole Blood 124 mg/dL (75-99)
[2020-01-03] MEDS: LATANOPROST 0.005% OPHTH DROPS 2.5 ML BTL BOTH EYES SCH (19:54)
[2020-01-03 19:57] LABS: Glucose,Whole Blood 149 mg/dL (75-99)
[2020-01-03] MEDS: BRIMONIDINE TARTRATE 0.2% DROPS 5 ML BTL BOTH EYES SCH (20:05)
[2020-01-03] MEDS: TIMOLOL 0.5% OPHTH DROPS 5 ML BTL BOTH EYES SCH (20:06)
[2020-01-04 04:58] VITALS: PULSE 48
[2020-01-04 06:05] LABS: HCT 35.6 % (39.0-53.0); HGB 11.4 gm/dL (13.0-17.5); Hypochromasia Slight; MCH 31.7 pg (25.0-35.0); MCV 98.9 fL (80.0-100.0); Macrocytosis Slight; Mean Platelet Volume 9.1; Platelet Count 113 k/uL (150-450); RDW 14.9 % (11.5-15.5); WBC 9.5 k/uL (3.8-10.6)
[2020-01-04 06:10] LABS: Glucose,Whole Blood 112 mg/dL (75-99)
[2020-01-04 06:11] LABS: INR 1.1 (<1.2)
[2020-01-04 06:12] LABS: Prothrombin Time 11.5 sec (9.0-12.0)
[2020-01-04] MEDS: METOCLOPRAMIDE 5 MG/ML 2 ML VIAL IVP SCH ×2 (06:13→12:02)
[2020-01-04] MEDS: APIXABAN 5 MG TAB PO SCH (06:14)
[2020-01-04] MEDS: LOSARTAN 50 MG TAB PO SCH (06:14)
[2020-01-04 06:16] LABS: Albumin 3.2 g/dL (3.5-5.0); Calcium 8.7 mg/dL (8.4-10.2); Potassium 4.4 mmol/L (3.5-5.1); Total Bilirubin 1.5 mg/dL (0.2-1.3); Total Protein 6.6 g/dL (6.3-8.2)
[2020-01-04 07:47] VITALS: BP 134/76; RESP 16; TEMP 97.8
[2020-01-04] MEDS: INSULIN ASPART (NovoLOG) 100 UNIT/ML VIAL SQ SCH ×2 (08:13→12:01)
[2020-01-04] MEDS: GABAPENTIN 300 MG CAP PO SCH (08:48)
[2020-01-04] MEDS: carvediloL 3.125 MG TAB PO SCH (08:48)
[2020-01-04] MEDS: PANTOPRAZOLE 40 MG/10 ML VIAL IV SCH (08:48)
[2020-01-04] MEDS: MECLIZINE 25 MG TAB PO SCH (08:48)
--- NOTE | 2020-01-04 11:14 | P.PN ---
<Kim Crockett - Last Filed: 01/04/20 11:05> Subjective Progress Note Date: 01/04/20 CHIEF COMPLAINT: Dizziness HISTORY OF PRESENT ILLNESS: Patient is being followed due to elevated LFTs. He had an abdominal ultrasound had shown numerous gallstones of the gallbladder neck. Patient had is asymptomatic. He denies any abdominal pain. Denies any nausea or vomiting. He is tolerating diet. He was evaluated by GI service they felt that the Augmentin was likely contributing to his acute hepatitis. Augmentin was discontinued. His LFTs are trending down. He is afebrile. WBC is 9.5 hemoglobin is 11.4 total bili 1.5 AST 134 ALT 315 alk phos 261 PHYSICAL EXAM: VITAL SIGNS: Reviewed. GENERAL: Well-developed in no acute distress. HEENT: No sclera icterus. Extraocular movements grossly intact. Moist buccal mucosa. Head is atraumatic, normocephalic. ABDOMEN: Soft. Obese. Nondistended. Nontender. NEUROLOGIC: Alert and oriented. Cranial nerves II through XII grossly intact. ASSESSMENT: 1. Numerous gallstones at the gallbladder neck with elevated Liver enzymes. Patient is asymptomatic. 2. Augmentin induced hepatitis. Patient evaluated by GI service 3. dizziness possibly related to orthostatic hypotension or labyrinthitis PLAN: -Agree with GI service plan of care and discontinuing the Augmentin -No surgical intervention planned at this time Physician Grinder Operator note has been reviewed by physician. Signing provider agrees with the documented findings, assessment, and plan of care. Objective - Vital Signs Vital signs: Vital Signs Temp 97.8 F 01/04/20 07:46 Pulse 48 L 01/04/20 03:00 Resp 16 01/04/20 07:46 BP 134/76 01/04/20 07:46 Pulse Ox 96 01/04/20 07:46 Intake & Output 01/03/20 01/04/20 01/04/20 18:59 06:59 18:59 Intake Total 500 Output Total 1002 1301 Balance -502 -1301 Intake: Oral 500 Output: Urine 1002 1301 Other: Voiding Method Urinal Urinal Urinal # Voids 750 2 - Labs CBC & Chem 7: 01/04/20 05:46 01/04/20 05:46 Labs: Abnormal Lab Results - Last 24 Hours (Table) 01/03/20 01/03/2020 Range/Units 11:34 17:35 19:52 RBC (4.30-5.90) m/uL Hgb (13.0-17.5) gm/dL Hct (39.0-53.0) % Plt Count (150-450) k/uL Chloride (98-107) mmol/L BUN (9-20) mg/dL Creatinine (0.66-1.25) mg/dL Glucose (74-99) mg/dL POC Glucose (mg/dL) 109 H 124 H 149 H (75-99) mg/dL Total Bilirubin (0.2-1.3) mg/dL AST (17-59) U/L ALT (4-49) U/L Alkaline Phosphatase (38-126) U/L Albumin (3.5-5.0) g/dL 01/04/20 01/04/20 01/04/20 Range/Units 05:46 05:46 06:07 RBC 3.60 L (4.30-5.90) m/uL Hgb 11.4 L (13.0-17.5) gm/dL Hct 35.6 L (39.0-53.0) % Plt Count 113 L (150-450) k/uL Chloride 108 H (98-107) mmol/L BUN 29 H (9-20) mg/dL Creatinine 2.16 H (0.66-1.25) mg/dL Glucose 131 H (74-99) mg/dL POC Glucose (mg/dL) 112 H (75-99) mg/dL Total Bilirubin 1.5 H (0.2-1.3) mg/dL AST 134 H (17-59) U/L ALT 315 H (4-49) U/L Alkaline Phosphatase 261 H (38-126) U/L Albumin 3.2 L (3.5-5.0) g/dL <Héctor Ashford - Last Filed: 01/04/20 15:59> Subjective As above. Patient doing better today. Liver enzymes improved. Appreciate GI involvement. Gallstones likely incidental finding. Follow-up as outpatient. Objective - Vital Signs Vital signs: Vital Signs Temp 97.8 F 01/04/20 07:46 Pulse 48 L 01/04/20 03:00 Resp 16 01/04/20 07:46 BP 134/76 01/04/20 07:46 Pulse Ox 96 01/04/20 07:46 Intake & Output 01/03/20 01/04/20 01/04/20 18:59 06:59 18:59 Intake Total 500 Output Total 1002 1301 Balance -502 -1301 Intake: Oral 500 Output: Urine 1002 1301 Other: Voiding Method Urinal Urinal Urinal # Voids 750 2 - Labs CBC & Chem 7: 01/04/20 05:46 01/04/20 05:46 Labs: Abnormal Lab Results - Last 24 Hours (Table) 01/03/20 01/03/20 01/04/20 Range/Units 17:35 19:52 05:46 RBC 3.60 L (4.30-5.90) m/uL Hgb 11.4 L (13.0-17.5) gm/dL Hct 35.6 L (39.0-53.0) % Plt Count 113 L (150-450) k/uL Chloride (98-107) mmol/L BUN (9-20) mg/dL Creatinine (0.66-1.25) mg/dL Glucose (74-99) mg/dL POC Glucose (mg/dL) 124 H 149 H (75-99) mg/dL Total Bilirubin (0.2-1.3) mg/dL AST (17-59) U/L ALT (4-49) U/L Alkaline Phosphatase (38-126) U/L Albumin (3.5-5.0) g/dL 01/04/20 01/04/20 01/04/20 Range/Units 05:46 06:07 12:00 RBC (4.30-5.90) m/uL Hgb (13.0-17.5) gm/dL Hct (39.0-53.0) % Plt Count (150-450) k/uL Chloride 108 H (98-107) mmol/L BUN 29 H (9-20) mg/dL Creatinine 2.16 H (0.66-1.25) mg/dL Glucose 131 H (74-99) mg/dL POC Glucose (mg/dL) 112 H 118 H (75-99) mg/dL Total Bilirubin 1.5 H (0.2-1.3) mg/dL AST 134 H (17-59) U/L ALT 315 H (4-49) U/L Alkaline Phosphatase 261 H (38-126) U/L Albumin 3.2 L (3.5-5.0) g/dL
[2020-01-04 12:02] LABS: Glucose,Whole Blood 118 mg/dL (75-99)
--- NOTE | 2020-01-04 13:10 | P.PN ---
Subjective Progress Note Date: 01/04/20 Principal diagnosis: Elevated LFTs This is 79-year-old white male patient came into the emergency department for evaluation of dizziness and headaches. His initial workup showed elevation in his liver function tests, hence he had a gallbladder ultrasound which showed numerous gallstones at the gallbladder neck. No dilated ducts. No focal liver defect. Otitis serologies were ordered and were negative for A, B, and C. The patient was recently diagnosed with otitis media and was started on Augmentin for 10 days. Today seen and evaluated at the bedside. He denies any abdominal pain, nausea or vomiting. However he did state that he had some mild nausea this morning because he had not eaten. He is been afebrile, dizziness and headache have improved. Objective - Vital Signs Vital signs: Vital Signs Temp 97.8 F 01/04/20 07:46 Pulse 48 L 01/04/20 03:00 Resp 16 01/04/20 07:46 BP 134/76 01/04/20 07:46 Pulse Ox 96 01/04/20 07:46 Intake & Output 01/03/20 01/04/20 01/04/20 18:59 06:59 18:59 Intake Total 500 Output Total 1002 1301 Balance -502 -1301 Intake: Oral 500 Output: Urine 1002 1301 Other: Voiding Method Urinal Urinal Urinal # Voids 750 2 - Exam General appearance: The patient is alert, oriented, in no acute distress. HET: Head is normocephalic and atraumatic. Conjunctiva pink. Sclera anicteric. Neck: Supple without lymphadenopathy. Abdomen: Soft, obese, nontender, nondistended with bowel sounds. No guarding or rigidity. No organomegaly. Extremities: Normal skin color and turgor. No pedal edema Neurological: No focal deficits. Alert and oriented 3. - Labs CBC & Chem 7: 01/04/20 05:46 01/04/20 05:46 Labs: Abnormal Lab Results - Last 24 Hours (Table) 01/03/20 01/03/20 01/04/20 Range/Units 17:35 19:52 05:46 RBC 3.60 L (4.30-5.90) m/uL Hgb 11.4 L (13.0-17.5) gm/dL Hct 35.6 L (39.0-53.0) % Plt Count 113 L (150-450) k/uL Chloride (98-107) mmol/L BUN (9-20) mg/dL Creatinine (0.66-1.25) mg/dL Glucose (74-99) mg/dL POC Glucose (mg/dL) 124 H 149 H (75-99) mg/dL Total Bilirubin (0.2-1.3) mg/dL AST (17-59) U/L ALT (4-49) U/L Alkaline Phosphatase (38-126) U/L Albumin (3.5-5.0) g/dL 01/04/20 01/04/20 01/04/20 Range/Units 05:46 06:07 12:00 RBC (4.30-5.90) m/uL Hgb (13.0-17.5) gm/dL Hct (39.0-53.0) % Plt Count (150-450) k/uL Chloride 108 H (98-107) mmol/L BUN 29 H (9-20) mg/dL Creatinine 2.16 H (0.66-1.25) mg/dL Glucose 131 H (74-99) mg/dL POC Glucose (mg/dL) 112 H 118 H (75-99) mg/dL Total Bilirubin 1.5 H (0.2-1.3) mg/dL AST 134 H (17-59) U/L ALT 315 H (4-49) U/L Alkaline Phosphatase 261 H (38-126) U/L Albumin 3.2 L (3.5-5.0) g/dL Assessment and Plan Assessment: Asymptomatic elevation of serum transaminases as well as bilirubin up to 2.1 and ALT AST in the range of 406 and 600 in this patient who was recently treated with antibiotics for acute otitis media and has been on Augmentin. The bioch emical picture is often seen with Augmentin-induced hepatitis and they have a mixed pattern of hepatocellular injury and cholestatic pattern. Ultrasound did show evidence of gallstones but no evidence of biliary ductal dilation the patient has no associated abdominal pain which makes it very unlikely that we're dealing with choledocholithiasis. Hepatitis serologies are negative for A, B and C. Today's labs are improving bilirubin is 1.5, alkaline phosphatase 261, AST 134, ALT 315. Plan: 1. Hold any further dose of Augmentin 2. Repeat LFTs 3. The patient may be started on a consistent carbohydrate diet 4. There is no indication for ERCP at the present time, unlikely dealing with choledocholithiasis 5. Patient may be discharged home with further follow-up with gastroenterology trending LFTs The impression and plan of care has been dictated as directed. Dr. Gómez Maddox I performed a history and examination of this patient, discussed the same with the dictator. I agree with the dictator's note ,documented as a scribe. Any additional findings or plans will be noted.
--- NOTE | 2020-01-04 15:04 | P.DS ---
Providers Date of admission: 01/02/20 14:05 Expected date of discharge: 01/04/20 Attending physician: Johnathan Vuong Consults: 01/02/20 14:06 Consult Physician Urgent Consulting Provider: Joseph Sarkar Consult Reason/Comments: intractable vertigo Do you want consulting provider notified?: Yes 01/03/20 09:21 Consult Physician Routine Consulting Provider: Héctor Ashford Consult Reason/Comments: gallstone elevated liver enzymes Do you want consulting provider notified?: Yes 01/03/20 11:58 Consult Physician Routine Consulting Provider: Carlin Jarvis Consult Reason/Comments: elevated LFTs Do you want consulting provider notified?: Yes Primary care physician: Beltran Castillo MD Hospital Course: Discharge Diagnosis: Orthostatic hypotension-Decreased Coreg, given IV fluids, patient restarted on Lasix Augment induced hepatitis Cholelithiasis Sinus bradycardia Diabetes mellitus-patient takes metformin and did not want to discuss changing this medication however his creatinine is slightly above 2 Chronic kidney disease stage IV Coronary artery disease with known ischemic cardiomyopathy status post AICD Thrombocytopenia Hx Pulmonary embolism on [facility] Course: Patient is a 79 yo CM with a history of chronic headache, coronary artery disease, diabetes, hypertension, dyslipidemia, ischemic cardiomyopathy with AICD, and multiple other comorbid conditions who presented to the hospital with complaints of worsening dizziness and a headache. He had recently been diagnosed with acute otitis media and started on Augmentin by his primary care physician. On arrival to the ER he was slightly bradycardic with a pulse of 58 his blood pressure was 129/83 and his O2 sat was 98% on room air. Initial lab oratory analysis showed hemoglobin 12.2, hematocrit 37.6 and platelets 124. BUN 36, creatinine 2.45 with baseline creatinine of 2.2. Magnesium 2.5, bilirubin 2.1, AST 454, and ALT 637. CT head demonstrated no intracranial hemorrhage or midline shift with diffuse cerebral atrophy and chronic small vessel ischemic changes. He was started on IV fluids and admitted. Orthostatic vitals were positive and his Lasix was held and IV fluids were continued. He ultimately had improvement in his orthostatic vital signs. He was instructed to wear KAITLIN hose. He was seen by neurology who felt this was likely orthostatic hypotension but could still have a component of labyrinthitis. He improved with antivert. Will need follow-up and consider limiting lasix use in the mean time. Acute hepatitis- due to augmentin, LFTS improved and patient without significant abdominal pain Gallstones asymptomatic- out patient follow-up with Dr. Ashford. Patient seen and examined at bedside.Doing well, no further dizziness, did not want to decrease lasix at home due to prior edema and renal function, able to complete tele back for plan on gallstones. Vital signs reviewed and stable. General: non toxic, no distress, appears at stated age Derm: warm, dry Head: atraumatic, normocephalic, symmetric Eyes: EOMI, no lid lag, anicteric sclera Mouth: no lip lesion, mucus membranes moist Cardiovascular: S1S2 reg, no murmur, positive posterior tibial pulse bilateral, Lungs: CTA bilateral, no rhonchi, no rales , no accessory muscle use Abdominal: soft, nontender to palpation, no guarding, no appreciable organomegaly Ext: no gross muscle atrophy, no edema, no contractures Neuro: CN II-XI grossly intact, no focal neuro deficits Psych: Alert, oriented, appropriate affect A total of 25 minutes of time were spent preparing this complex discharge summary . Patient Condition at Discharge: Stable Plan - Discharge Summary Discharge Rx Participant: No New Discharge Prescriptions: New RX: Gabapentin [Neurontin] 300 mg PO BID cap RX: Meclizine [Antivert] 25 mg PO TID #21 tab RX: carvediloL [Coreg] 3.125 mg PO BID-W/MEALS #60 tab Pantoprazole [Protonix] 40 mg PO DAILY #30 tablet. Continue RX: metFORMIN HCL ER [Glucophage Xr] 500 mg PO AC-SUPPER RX: Latanoprost [Xalatan 0.005%] 1 drop BOTH EYES HS RX: Atorvastatin [Lipitor] 40 mg PO AC-SUPPER RX: Losartan [Cozaar] 50 mg PO DAILY@0700 RX: Furosemide [Lasix] 80 mg PO BID@0700,1700 RX: Apixaban [Eliquis] 5 mg PO BID@0700,1700 RX: Brimonidine Tartrate/Timolol [Combigan 0.2%-0.5% Eye Drops] 1 drop BOTH EYES HS RX: Calcium Polycarbophil [Fiber-Lax] 1,250 mg PO BID@0700,1700 Discontinued RX: Gabapentin [Neurontin] 300 mg PO QID Naproxen [Naprosyn] 375 mg PO BID@0700,1700 Amoxic-Pot Clav 875-125Mg [Augmentin 875-125] 1 tab PO BID@0700,1700 carvediloL [Coreg] 6.25 mg PO HS@1700 RX: carvediloL [Coreg] 12.5 mg PO DAILY@0700 Discharge Medication List RX: Latanoprost [Xalatan 0.005%] 1 drop BOTH EYES HS 10/18/16 [History] RX: metFORMIN HCL ER [Glucophage Xr] 500 mg PO AC-SUPPER 10/18/16 [History] RX: Atorvastatin [Lipitor] 40 mg PO AC-SUPPER 01/07/17 [History] RX: Losartan [Cozaar] 50 mg PO DAILY@0700 03/22/19 [History] RX: Apixaban [Eliquis] 5 mg PO BID@0700,1700 01/02/20 [History] RX: Brimonidine Tartrate/Timolol [Combigan 0.2%-0.5% Eye Drops] 1 drop BOTH EYES HS 01/02/20 [History] RX: Calcium Polycarbophil [Fiber-Lax] 1,250 mg PO BID@0700,1700 01/02/20 [History] RX: Furosemide [Lasix] 80 mg PO BID@0700,1700 01/02/20 [History] Pantoprazole [Protonix] 40 mg PO DAILY #30 tablet.dr 01/04/20 [Rx] RX: Gabapentin [Neurontin] 300 mg PO BID cap 01/04/20 [Rx] RX: Meclizine [Antivert] 25 mg PO TID #21 tab 01/04/20 [Rx] RX: carvediloL [Coreg] 3.125 mg PO BID-W/MEALS #60 tab 01/04/20 [Rx] Follow up Appointment(s)/Referral(s): Héctor Ashford MD [Medical Doctor] - 01/13/20 9:00 am Beltran Castillo MD [Primary Care Provider] - 1-2 days Ambulatory/Diagnostic Orders: Comprehensive Metabolic Panel [LAB.AMB] Time Frame: 1 Week, Location: None Selected Activity/Diet/Wound Care/Special Instructions: Activity: as tolerated Diet: heart healthy, low fat Special Instructions: Restart Lasix 01/05/2020 Gabapentin only twice daily. Discharge Disposition: HOME SELF-CARE
== END 2020-01-04 13:45 | disposition home or self-care (01) ==
LOC: EC 11:59 → 3NCARDOBS 14:05
PROVIDERS: ADMIT Internal Medicine; ATTEND Internal Medicine
DX: I95.1 Orthostatic hypotension (principal); K71.2 Toxic liver disease with acute hepatitis; T36.0X5A Adverse effect of penicillins, initial encounter; K80.20 Calculus of gallbladder without cholecystitis without obstruction; R00.1 Bradycardia, unspecified; N18.4 Chronic kidney disease, stage 4 (severe); I25.10 Atherosclerotic heart disease of native coronary artery without angina pectoris; I25.5 Ischemic cardiomyopathy; D69.6 Thrombocytopenia, unspecified; H66.92 Otitis media, unspecified, left ear; G31.9 Degenerative disease of nervous system, unspecified; F02.80 Dementia in other diseases classified elsewhere, unspecified severity, without behavioral disturbance, psychotic disturbance, mood disturbance, and anxiety; I67.82 Cerebral ischemia; H55.09 Other forms of nystagmus; J44.9 Chronic obstructive pulmonary disease, unspecified; I13.0 Hypertensive heart and chronic kidney disease with heart failure and stage 1 through stage 4 chronic kidney disease, or unspecified chronic kidney disease; I50.9 Heart failure, unspecified; E11.22 Type 2 diabetes mellitus with diabetic chronic kidney disease; H40.9 Unspecified glaucoma; E78.5 Hyperlipidemia, unspecified; I25.2 Old myocardial infarction; M19.90 Unspecified osteoarthritis, unspecified site; M10.9 Gout, unspecified; R51.9 Headache, unspecified; G89.29 Other chronic pain; Z79.899 Other long term (current) drug therapy; Z79.84 Long term (current) use of oral hypoglycemic drugs; Z79.1 Long term (current) use of non-steroidal anti-inflammatories (NSAID); Z79.82 Long term (current) use of aspirin; Z79.02 Long term (current) use of antithrombotics/antiplatelets; Z88.8 Allergy status to other drugs, medicaments and biological substances; Z88.5 Allergy status to narcotic agent; Z87.01 Personal history of pneumonia (recurrent); Z86.711 Personal history of pulmonary embolism; Z87.09 Personal history of other diseases of the respiratory system; Z95.810 Presence of automatic (implantable) cardiac defibrillator; Z85.46 Personal history of malignant neoplasm of prostate; Z98.890 Other specified postprocedural states; Z87.440 Personal history of urinary (tract) infections; Z86.018 Personal history of other benign neoplasm; Z95.5 Presence of coronary angioplasty implant and graft; Z87.19 Personal history of other diseases of the digestive system; Z98.41 Cataract extraction status, right eye; Z98.42 Cataract extraction status, left eye; Z90.79 Acquired absence of other genital organ(s); Z87.891 Personal history of nicotine dependence
CPT/HCPCS: 96361 ×3; 96375; 96376 ×3; 96374; 99285; 36415; 93005; 80053 ×3; 80074; 84443; 82150; 83605; 83690; 83735; 85025 ×2; 85027; 85610 ×2; 85730; 71046; 76705; 70450; G0378 ×3; J2765 ×3; C9113 ×2

== ENCOUNTER 2020-01-10 11:21 | Inpatient (IN) | payer MEDICARE, BC ==
--- NOTE | 2020-01-10 12:42 | ED ---
SOB HPI - General Chief Complaint: Shortness of Breath Stated Complaint: weakness, fatigue Time Seen by Provider: 01/10/20 12:00 Source: patient, RN notes reviewed Mode of arrival: wheelchair Limitations: no limitations - History of Present Illness Initial Comments: is a 79-year-old male with a history of multiple medical issues and who was just recently discharged from the hospital this past week who presents today with persistent exertional dyspnea and shortness of breath some cough no overt fevers chills or sweats however. He states is been going on for the past several weeks is getting worse not betterhe states even walk to the bathroom and his house he is very winded and fatigued. He was seen by his cardiology providers today and sent here for evaluation. Currently no chest pain no other symptoms just a persistent social dyspnea at this time MD Complaint: shortness of breath - Related Data Home Medications Medication Instructions Recorded Confirmed Latanoprost [Xalatan 0.005%] 1 drop BOTH EYES HS 10/18/16 01/10/20 metFORMIN HCL ER [Glucophage Xr] 500 mg PO AC-SUPPER 10/18/16 01/10/20 Atorvastatin [Lipitor] 40 mg PO AC-SUPPER 01/07/17 01/10/20 Losartan [Cozaar] 50 mg PO DAILY@0700 03/22/19 01/10/20 Apixaban [Eliquis] 5 mg PO BID@0700,1700 01/02/20 01/10/20 Calcium Polycarbophil [Fiber-Lax] 1,250 mg PO BID@0700,1700 01/02/20 01/10/20 Furosemide [Lasix] 80 mg PO BID@0700,1700 01/02/20 01/10/20 Dorzolamide/Timolol/Pf 1 drop BOTH EYES HS 01/10/20 01/10/20 [Dorzolamide 2%-Timolol 0.5%] Gabapentin [Neurontin] 300 mg PO BID@0700,1700 01/10/20 01/10/20 carvediloL [Coreg] 6.25 mg PO BID@0700,1700 01/10/20 01/10/20 Allergies Allergy/AdvReac Type Severity Reaction Status Date / Time spironolactone Allergy Unknown Verified 01/10/20 13:22 hydrocodone bitartrate AdvReac Confusion Verified 01/10/20 13:22 [From Vicodin] Review of Systems ROS Statement: Those systems with pertinent positive or pertinent negative responses have been documented in the HPI. ROS Other: All systems not noted in ROS Statement are negative. Past Medical History Past Medical History: Coronary Artery Disease (CAD), Cancer, Chest Pain / Angina, Heart Failure, COPD, Diabetes Mellitus, Eye Disorder, Hyperlipidemia, Hy pertension, Myocardial Infarction ([place]), Osteoarthritis (OA), Pneumonia, Prostate Disorder, Pulmonary Embolus (PE), Renal Disease Additional Past Medical History / Comment(s): NIDDM type II, chronic kidney disease stage III, R eye glaucoma, tracheobronchitis, ischemic cardiomyopathy with AICD, pulmonary emboli L lung, prostatitis, prostate cancer with surgery, UTI, chronic haider/cervical and bilateral shoulder pain, back pain, gout, fatty tumor R back Last Myocardial Infarction Date:: 10/18/16 History of Any Multi-Drug Resistant Organisms: None Reported Past Surgical History: AICD, Back Surgery, Heart Catheterization, Heart Catheterization With Stent, Hernia Repair, Pacemaker, Prostate Surgery Additional Past Surgical History / Comment(s): CARDIOVERSION/WORE LEFE VEST UNTIL AICD/pacer IMPLANTED 01-10-17.. lumbar surgery twice, cervical epidural injections, bilateral inguinal hernia repairs, TURP, colonoscopy, bilateral cataract removals. Past Anesthesia/Blood Transfusion Reactions: No Reported Reaction Date of Last Stent Placement:: 10/18/16 Type of Cardiac Device: AICD Device Placement Date:: 01-10-17 Past Psychological History: No Psychological Hx Reported Smoking Status: Never smoker Past Alcohol Use History: None Reported Past Drug Use History: None Reported - Past Family History Mother Family Medical History: Unable to Obtain Additional Family Medical History / Comment(s): Mother of unknown cause. Father Family Medical History: Unable to Obtain Additional Family Medical History / Comment(s): Father of unknown cause. General Exam - General Exam Comments Initial Comments: this is a well-developed well-nourished awake alert oriented x3 male Limitations: no limitations General appearance: alert, anxious Head exam: Present: atraumatic, normocephalic, normal inspection Eye exam: Present: normal appearance, PERRL, EOMI. Absent: scleral icterus, conjunctival injection, periorbital swelling ENT exam: Present: normal exam, mucous membranes moist Neck exam: Present: normal inspection, full ROM, other (no stridor JVD or bruits). Absent: tenderness, meningismus, lymphadenopathy Respiratory exam: Present: normal lung sounds bilaterally, decreased breath sounds. Absent: respiratory distress, wheezes, rales, rhonchi, stridor Cardiovascular Exam: Present: regular rate, normal rhythm, normal heart sounds. Absent: systolic murmur, diastolic murmur, rubs, gallop, clicks GI/Abdominal exam: Present: soft, normal bowel sounds. Absent: distended, tenderness, guarding, rebound, rigid Extremities exam: Present: normal inspection, full ROM, normal capillary refill, pedal edema (race edema bilaterally). Absent: tenderness, joint swelling, calf tenderness Back exam: Present: normal inspection Neurological exam: Present: alert, oriented X3, CN II-XII intact Psychiatric exam: Present: normal affect, normal mood Skin exam: Present: warm, dry, intact, normal color. Absent: rash Course Vital Signs 01/10/20 01/10/20 01/10/20 11:22 11:56 12:00 Temperature 97.9 F Pulse Rate 70 58 L 59 L Respiratory 26 H 18 16 Rate Blood Pressure 116/71 140/73 O2 Sat by Pulse 97 98 Oximetry 01/10/20 01/10/20 01/10/20 12:30 13:00 13:30 Temperature Pulse Rate 56 L 57 L 55 L Respiratory 16 16 16 Rate Blood Pressure 140/73 143/67 137/71 O2 Sat by Pulse 98 99 98 Oximetry 01/10/20 01/10/20 01/10/20 14:00 14:30 14:47 Temperature Pulse Rate 55 L 70 60 Respiratory 16 16 20 Rate Blood Pressure 146/73 157/86 171/88 O2 Sat by Pulse 96 98 98 Oximetry 01/10/20 01/10/20 15:00 16:01 Temperature 97.9 F Pulse Rate 56 L 63 Respiratory 17 18 Rate Blood Pressure 163/94 134/73 O2 Sat by Pulse 99 98 Oximetry Medical Decision Making - Medical Decision Making I did discuss the findings with the patient as well as with Dr. Campbell. he'll be admitted with cardiology consultation. - Lab Data Result diagrams: 01/10/20 12:44 01/10/20 12:44 Lab Results 11/04/2901/10/20 01/10/20 Range/Units 12:44 12:44 12:44 WBC 11.2 H (3.8-10.6) k/uL RBC 3.93 L (4.30-5.90) m/uL Hgb 12.4 L (13.0-17.5) gm/dL Hct 38.3 L (39.0-53.0) % MCV 97.5 (80.0-100.0) fL MCH 31.5 (25.0-35.0) pg MCHC 32.3 (31.0-37.0) g/dL RDW 15.0 (11.5-15.5) % Plt Count 266 D (150-450) k/uL Neutrophils % 78 % Lymphocytes % 10 % Monocytes % 5 % Eosinophils % 4 % Basophils % 1 % Neutrophils # 8.7 H (1.3-7.7) k/uL Lymphocytes # 1.1 (1.0-4.8) k/uL Monocytes # 0.6 (0-1.0) k/uL Eosinophils # 0.5 (0-0.7) k/uL Basophils # 0.1 (0-0.2) k/uL Hypochromasia Slight PT (9.0-12.0) sec INR (<1.2) APTT (22.0-30.0) sec D-Dimer (<0.60) mg/L FEU Sodium 139 (137-145) mmol/L Potassium 4.5 (3.5-5.1) mmol/L Chloride 107 (98-107) mmol/L Carbon Dioxide 24 (22-30) mmol/L Anion Gap 8 mmol/L BUN 34 H (9-20) mg/dL Creatinine 1.88 H (0.66-1.25) mg/dL Est GFR (CKD-EPI)AfAm 39 (>60 ml/min/1.73 sqM) Est GFR (CKD-EPI)NonAf 34 (>60 ml/min/1.73 sqM) Glucose 96 (74-99) mg/dL Plasma Lactic Acid Ozzy (0.7-2.0) mmol/L Calcium 9.1 (8.4-10.2) mg/dL Magnesium 2.1 (1.6-2.3) mg/dL Total Bilirubin 0.8 (0.2-1.3) mg/dL AST 48 (17-59) U/L ALT 84 H (4-49) U/L Alkaline Phosphatase 193 H (38-126) U/L Lactate Dehydrogenase 844 H (313-618) U/L Creatine Kinase 28 L (55-170) U/L Troponin I <0.012 (0.000-0.034) ng/mL C-Reactive Protein 40.6 H (<10.0) mg/L NT-Pro-B Natriuret Pep pg/mL Total Protein 7.6 (6.3-8.2) g/dL Albumin 3.7 (3.5-5.0) g/dL 01/10/20 01/10/20 01/10/20 Range/Units 12:44 12:44 12:44 WBC (3.8-10.6) k/uL RBC (4.30-5.90) m/uL Hgb (13.0-17.5) gm/dL Hct (39.0-53.0) % MCV (80.0-100.0) fL MCH (25.0-35.0) pg MCHC (31.0-37.0) g/dL RDW (11.5-15.5) % Plt Count (150-450) k/uL Neutrophils % % Lymphocytes % % Monocytes % % Eosinophils % % Basophils % % Neutrophils # (1.3-7.7) k/uL Lymphocytes # (1.0-4.8) k/uL Monocytes # (0-1.0) k/uL Eosinophils # (0-0.7) k/uL Basophils # (0-0.2) k/uL Hypochromasia PT 10.9 (9.0-12.0) sec INR 1.1 (<1.2) APTT 26.3 (22.0-30.0) sec D-Dimer 0.69 H (<0.60) mg/L FEU Sodium (137-145) mmol/L Potassium (3.5-5.1) mmol/L Chloride (98-107) mmol/L Carbon Dioxide (22-30) mmol/L Anion Gap mmol/L BUN (9-20) mg/dL Creatinine (0.66-1.25) mg/dL Est GFR (CKD-EPI)AfAm (>60 ml/min/1.73 sqM) Est GFR (CKD-EPI)NonAf (>60 ml/min/1.73 sqM) Glucose (74-99) mg/dL Plasma Lactic Acid Ozzy 1.6 (0.7-2.0) mmol/L Calcium (8.4-10.2) mg/dL Magnesium (1.6-2.3) mg/dL Total Bilirubin (0.2-1.3) mg/dL AST (17-59) U/L ALT (4-49) U/L Alkaline Phosphatase (38-126) U/L Lactate Dehydrogenase (313-618) U/L Creatine Kinase (55-170) U/L Troponin I (0.000-0.034) ng/mL C-Reactive Protein (<10.0) mg/L NT-Pro-B Natriuret Pep 1290 pg/mL Total Protein (6.3-8.2) g/dL Albumin (3.5-5.0) g/dL - EKG Data -: EKG Interpreted by Me EKG Comments: EKG shows sinus rhythm occasional PVCs rate 64. 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
--- NOTE | 2020-01-10 13:03 | XR ---
EXAMINATION TYPE: XR chest 2V DATE OF EXAM: 01/10/2020 COMPARISON: Chest x-ray January 02, 2020. HISTORY: Shortness of breath and weakness. TECHNIQUE: Frontal and lateral views of the chest are obtained. FINDINGS: There is chronic parenchymal changes without suspicious new focal air space opacity, pleur al effusion, or pneumothorax seen. The cardiac silhouette size is mildly enlarged with dual lead pac emaker/defibrillator and atherosclerotic change thoracic aorta.. Multilevel spurring in the spine. IMPRESSION: Chronic changes and cardiomegaly without acute pulmonary process.
[2020-01-10 13:05] LABS: Basophils # (A) 0.1 k/uL (0-0.2); Basophils % (A) 1 %; Eosinophils # (A) 0.5 k/uL (0-0.7); Eosinophils % (A) 4 %; HCT 38.3 % (39.0-53.0); HGB 12.4 gm/dL (13.0-17.5); Hypochromasia Slight; Lymphocytes # (A) 1.1 k/uL (1.0-4.8); Lymphocytes % (A) 10 %; MCH 31.5 pg (25.0-35.0); MCHC 32.3 g/dL (31.0-37.0); MCV 97.5 fL (80.0-100.0); Mean Platelet Volume 8.4; Monocytes # (A) 0.6 k/uL (0-1.0); Monocytes % (A) 5 %; Neutrophils # (A) 8.7 k/uL (1.3-7.7); Neutrophils % (A) 78 %; RBC 3.93 m/uL (4.30-5.90); WBC 11.2 k/uL (3.8-10.6)
[2020-01-10 13:09] LABS: Platelet Count 266 k/uL (150-450)
[2020-01-10 13:17] LABS: INR 1.1 (<1.2); Partial Thromboplastin Time 26.3 sec (22.0-30.0); Prothrombin Time 10.9 sec (9.0-12.0)
[2020-01-10 13:20] LABS: Albumin 3.7 g/dL (3.5-5.0); C Reactive Protein 40.6 mg/L (<10.0); Calcium 9.1 mg/dL (8.4-10.2); Magnesium 2.1 mg/dL (1.6-2.3); Potassium 4.5 mmol/L (3.5-5.1); Total Bilirubin 0.8 mg/dL (0.2-1.3); Total Protein 7.6 g/dL (6.3-8.2)
[2020-01-10] MEDS ORDERED: FUROSEMIDE 10 MG/ML 4 ML VIAL IV STA (14:30)
[2020-01-10 14:31] LABS: D-Dimer 0.69 mg/L FEU (<0.60)
[2020-01-10] MEDS ORDERED: ONDANSETRON 4 MG/2 ML VIAL IVP PRN (16:16)
[2020-01-10] MEDS ORDERED: NALOXONE 0.4 MG/ML 1 ML VIAL IV PRN (16:16)
[2020-01-10] MEDS ORDERED: DOCUSATE 100 MG CAP PO PRN (16:16)
--- NOTE | 2020-01-10 17:41 | P.HPIM ---
History of Present Illness H&P Date: 01/10/20 Chief Complaint: Dyspnea on exertion, myalgias, arthralgias, weakness 79-year-old male with a past medical history of pulmonary embolism, symptomatic sinus bradycardia status post AICD, CAD with ischemic cardiomyopathy, EF 25-30%, hypertension/diabetes/hyperlipidemia/60 daily stage III, prostate cancer status post surgery presented with dyspnea on exertion, myalgias/arthralgias, increasing weakness. Patient tells me that symptoms started 3 weeks ago, at which point he started to develop diffuse body aches in his muscles and his response, since that point, he has had progressive symptoms with increasing weakness. Now, he tells me that he can barely get to the bathroom and back without feeling extremely short of breath and weak. He discussed this with his operating room coordinator, who advised that he come into the hospital for further care. At this point, patient reports feeling right facial numbness, chills, dyspnea on exertion. However, he denies: Fevers, nausea, vomiting, syncope, presyncope, orthopnea, abdominal pain, chest pain, palpitations, numbness/focal weakness, dysuria, dyschezia. He denies any sick contacts recently. He reports he got the flu shot this year. On arrival patient was afebrile, 137/71, heart rate 55, 98% on room air. CBC is remarkable for mild cytosis to 11.2, predominantly neutrophils, without lymphopenia. Chemistries are remarkable for BUNs of 34, creatinine of 1.88 which is as good as her better than his baseline. LFTs are remarkable for elevated alkaline phosphatase at 193 and elevated LT at 84, borderline AST at 48, otherwise unremarkablethese abnormalities are improved from prior encounter. LDH was elevated at 844. CK was 28. CRP was elevated at 40.6. PT/PTT/INR were all unremarkable. D-dimer was mildly elevated 0.69. Troponin was less than 0.012. BNP was elevated at 1290. Chest x-ray shows peripheral pulmonary opacities bilaterally. EKG shows sinus rhythm with PVCs Review of Systems All Systems reviewed and pertinent positives and negatives noted in HPI, all other symptoms are negative Past Medical History Past Medical History: Coronary Artery Disease (CAD), Cancer, Chest Pain / Angina, Heart Failure, COPD, Diabetes Mellitus, Eye Disorder, Hyperlipidemia, Hypertension, Myocardial Infarction ([place]), Osteoarthritis (OA), Pneumonia, Prostate Disorder, Pulmonary Embolus ([place]), Renal Disease Additional Past Medical History / Comment(s): NIDDM type II, chronic kidney disease stage III, R eye glaucoma, tracheobronchitis, ischemic cardiomyopathy with AICD, pulmonary emboli L lung, prostatitis, prostate cancer with surgery, UTI, chronic haider/cervical and bilateral shoulder pain, back pain, gout, fatty tumor R back Last Myocardial Infarction Date:: 10/18/16 History of Any Multi-Drug Resistant Organisms: None Reported Past Surgical History: AICD, Back Surgery, Heart Catheterization, Heart Catheterization With Stent, Hernia Repair, Pacemaker, Prostate Surgery Additional Past Surgical History / Comment(s): CARDIOVERSION/WORE LEFE VEST UNTIL AICD/pacer IMPLANTED 01-10-17.. lumbar surgery twice, cervical epidural injections, bilateral inguinal hernia repairs, TURP, colonoscopy, bilateral cataract removals. Past Anesthesia/Blood Transfusion Reactions: No Reported Reaction Date of Last Stent Placement:: 10/18/16 Type of Cardiac Device: AICD Device Placement Date:: 01-10-17 Past Psychological History: No Psychological Hx Reported Smoking Status: Never smoker Past Alcohol Use History: None Reported Past Drug Use History: None Reported - Past Family History Mother Family Medical History: Unable to Obtain Additional Family Medical History / Comment(s): Mother of unknown cause. Father Family Medical History: Unable to Obtain Additional Family Medical History / Comment(s): Father of unknown cause. Medications and Allergies Home Medications Medication Instructions Recorded Confirmed Type Latanoprost [Xalatan 0.005%] 1 drop BOTH EYES HS 10/18/16 01/10/20 History metFORMIN HCL ER [Glucophage Xr] 500 mg PO AC-SUPPER 10/18/16 01/10/20 History Atorvastatin [Lipitor] 40 mg PO AC-SUPPER 01/07/17 01/10/20 History Losartan [Cozaar] 50 mg PO DAILY@0700 03/22/19 01/10/20 History Apixaban [Eliquis] 5 mg PO BID@0700,1700 01/02/20 01/10/20 History Calcium Polycarbophil [Fiber-Lax] 1,250 mg PO BID@0700,1700 01/02/20 01/10/20 History Furosemide [Lasix] 80 mg PO BID@0700,1700 01/02/20 01/10/20 History Dorzolamide/Timolol/Pf 1 drop BOTH EYES HS 01/10/20 01/10/20 History [Dorzolamide 2%-Timolol 0.5%] Gabapentin [Neurontin] 300 mg PO BID@0700,1700 01/10/20 01/10/20 History carvediloL [Coreg] 6.25 mg PO BID@0700,1700 01/10/20 01/10/20 History Allergies Allergy/AdvReac Type Severity Reaction Status Date / Time spironolactone Allergy Unknown Verified 01/10/20 13:22 hydrocodone bitartrate AdvReac Confusion Verified 01/10/20 13:22 [From Vicodin] Physical Exam Osteopathic Statement: *. No significant issues noted on an osteopathic structural exam other than those noted in the History and Physical/Consult. Vitals: Vital Signs Temp Pulse Resp BP Pulse Ox 01/10/20 16:01 97.9 F 63 18 134/73 98 01/10/20 15:00 56 L 17 163/94 99 01/10/20 14:47 60 20 171/88 98 01/10/20 14:30 70 16 157/86 98 01/10/20 14:00 55 L 16 146/73 96 01/10/20 13:30 55 L 16 137/71 98 01/10/20 13:00 57 L 16 143/67 99 01/10/20 12:30 56 L 16 140/73 98 01/10/20 12:00 59 L 16 01/10/20 11:56 58 L 18 140/73 98 01/10/20 11: 97.9 F 70 26 H 116/71 97 Intake and Output 01/10/20 01/10/20 01/10/20 06:59 14:59 22:59 Other: Weight 104.78 kg Gen: awake, alert HEENT: normocephalic, atraumatic, good hearing acuity, moist mucous membranes, +JVD Resp: CTAB, good air exchange, no accessory muscle use, no wheezes, crackles, rhonchi CVS: good distal perfusion x 4, RRR, no murmurs, clicks, gallops GI: soft, NTTP, ND : no SPT, no CVAT, vazquez catheter not present MSK: no pitting edema, no clubbing Neuro: non-focal, no sensory deficits, appropriate tone Psych: cooperative, euthymic mood Results CBC & Chem 7: 01/10/20 12:44 01/10/20 12:44 Labs: Abnormal Lab Results - Last 24 Hours (Table) 01/10/20 01/10/20 01/10/20 Range/Units 12:44 12:44 12:44 WBC 11.2 H (3.8-10.6) k/uL RBC 3.93 L (4.30-5.90) m/uL Hgb 12.4 L (13.0-17.5) gm/dL Hct 38.3 L (39.0-53.0) % Neutrophils # 8.7 H (1.3-7.7) k/uL D-Dimer 0.69 H (<0.60) mg/L FEU BUN 34 H (9-20) mg/dL Creatinine 1.88 H (0.66-1.25) mg/dL ALT 84 H (4-49) U/L Alkaline Phosphatase 193 H (38-126) U/L Lactate Dehydrogenase 844 H (313-618) U/L Creatine Kinase 28 L (55-170) U/L C-Reactive Protein 40.6 H (<10.0) mg/L Assessment and Plan Assessment: 1. Dyspnea on exertion 2. Myalgias and arthralgias 3. Right facial numbness 4. Chronic systolic heart failure, EF 35% 5. Symptomatically, he is status post AICD 6. CAD 7. Hypertension, essential 8. Hyperlipidemia 9. Diabetes type 2 10. History of Pulmonary Embolism 79-year-old male with a past medical history of ischemic cardiomyopathy and is post-AICD, CAD/HTN/HLD/DM presented with 3 weeks of increasing myalgias and arthralgias with dyspnea on exertion as well as new right facial numbness with symptoms concerning for Covid 19 as well as early congestive heart failure changes. Plan: - admit to telemetry, droplet precautions - COVID test pending - Influenza A/B pending - no indication for dexamethasone as patient is on room air - trend daily inflammatory markers: CRP, D-Dimer, LDH, Ferritin, Procalcitonin - I/Os, daily weights - increase lasix to 80mg IV BID for now, can likely convert back to PO tomorrow - cardiology c/s - repeat echo - MRI Brain to r/o stroke if imaging can be performed with pacemaker, otherwise can cancel - carotid doppler of the neck to rule out stenotic disease - continue home eliquis, coreg, losartan - continue home glaucoma meds - continue home statin Full Code; but would not want to be kept alive in a prolonged manner on life support is DPOA
[2020-01-10] MEDS: ATORVASTATIN 40 MG TAB PO SCH (18:27)
[2020-01-10] MEDS: APIXABAN 5 MG TAB PO SCH (18:33)
[2020-01-10] MEDS: carvediloL 6.25 MG TAB PO SCH (18:33)
[2020-01-10] MEDS: GABAPENTIN 300 MG CAP PO SCH (18:36)
[2020-01-10 18:40] LABS: Glucose,Whole Blood 112 mg/dL (75-99)
[2020-01-10] MEDS: INSULIN ASPART (NovoLOG) 100 UNIT/ML VIAL SQ SCH (18:40)
[2020-01-10 19:28] LABS: Ferritin 100.8 ng/mL (22.0-322.0)
[2020-01-10] MEDS ORDERED: LATANOPROST 0.005% OPHTH DROPS 2.5 ML BTL BOTH EYES SCH (21:00)
[2020-01-10] MEDS ORDERED: DORZOLAMIDE-TIMOLOL 2.23%/0.68 10ML BTL BOTH EYES SCH (21:00)
[2020-01-10] MEDS: FUROSEMIDE 10 MG/ML 10 ML VIAL IV SCH (21:53)
[2020-01-11 06:05] LABS: Glucose,Whole Blood 122 mg/dL (75-99)
[2020-01-11] MEDS: INSULIN ASPART (NovoLOG) 100 UNIT/ML VIAL SQ SCH ×3 (06:32→17:05)
[2020-01-11] MEDS: carvediloL 6.25 MG TAB PO SCH ×2 (06:35→16:22)
[2020-01-11] MEDS: LOSARTAN 50 MG TAB PO SCH (06:35)
[2020-01-11] MEDS: APIXABAN 5 MG TAB PO SCH ×2 (06:35→16:22)
[2020-01-11] MEDS: GABAPENTIN 300 MG CAP PO SCH ×2 (06:35→16:21)
[2020-01-11 08:17] LABS: Basophils # (A) 0.1 k/uL (0-0.2); Basophils % (A) 1 %; Eosinophils # (A) 0.4 k/uL (0-0.7); Eosinophils % (A) 4 %; HCT 38.5 % (39.0-53.0); HGB 12.2 gm/dL (13.0-17.5); Hypochromasia Slight; Lymphocytes % (A) 10 %; MCH 31.3 pg (25.0-35.0); MCHC 31.8 g/dL (31.0-37.0); MCV 98.4 fL (80.0-100.0); Mean Platelet Volume 7.5; Monocytes # (A) 0.5 k/uL (0-1.0); Monocytes % (A) 5 %; Neutrophils % (A) 79 %; Platelet Count 236 k/uL (150-450); RBC 3.91 m/uL (4.30-5.90); RDW 14.9 % (11.5-15.5); WBC 10.1 k/uL (3.8-10.6)
[2020-01-11 08:52] LABS: Albumin 3.6 g/dL (3.5-5.0); Calcium 9.2 mg/dL (8.4-10.2); Magnesium 2.1 mg/dL (1.6-2.3); Potassium 4.3 mmol/L (3.5-5.1); Total Bilirubin 0.9 mg/dL (0.2-1.3); Total Protein 7.3 g/dL (6.3-8.2)
[2020-01-11] MEDS ORDERED: ENOXAPARIN 40 MG/0.4 ML SYRINGE SQ SCH (09:00)
[2020-01-11] MEDS: FUROSEMIDE 10 MG/ML 10 ML VIAL IV SCH ×2 (09:18→21:20)
--- NOTE | 2020-01-11 09:45 | US ---
EXAMINATION TYPE: US carotid duplex BILAT DATE OF EXAM: 01/11/2020 COMPARISON: CT brain, CT angio CLINICAL HISTORY: right facial numbness; overall weakness per patient. EXAM MEASUREMENTS: RIGHT: Peak Systolic Velocity (PSV) cm/sec ----- Right CCA: 72.1 ----- Right ICA: 82.5 ----- Right ECA: 115.7 ICA/CCA ratio: 1.1 RIGHT: End Diastole cm/sec ----- Right CCA: 8.4 ----- Right ICA: 13.6 ----- Right ECA: 12.3 LEFT: Peak Systolic Velocity (PSV) cm/sec ----- Left CCA: 56.4 ----- Left ICA: 100.4 ----- Left ECA: 175.6 ICA/CCA ratio: 1.8 LEFT: End Diastole cm/sec ----- Left CCA: 12.4 ----- Left ICA: 17.6 ----- Left ECA: 10.7 VERTEBRALS (direction of flow): Right Vertebral: Antegrade Left Vertebral: Antegrade Rhythm: Arrhythmia Grayscale, color Doppler, spectral Doppler imaging performed of the carotid arteries. Waveform analys is does not show significant stenosis of the internal carotid arteries. Moderate irregular and calcified wall plaque is noted at bilateral carotid bifurcation, and elevated PSV is noted Proximal Left ECA. Incidental finding of bilateral thyroid nodules IMPRESSION: No hemodynamic significant stenosis of the proximal internal carotid arteries by Doppler criteria, an indirect measurement of carotid stenosis Criteria for Assigning % of Stenosis / Diameter reduction (Estimation based on the indirect measurements of the internal carotid artery velocities (ICA PSV). 1. Normal (no stenosis)=ICA PSV < 125 cm/s: ratio < 2.0: ICA EDV<40 cm/s. 2. Less than 50% stenosis=ICA PSV < 125 cm/s: ratio < 2.0: ICA EDV<40 cm/s. 3. 50 to 69% stenosis=ICA PSV of 125 to 230 cm/s: ration 2.0 ? 4.0: ICA EDV 40-100 cm/s. 4. Greater than 70% stenosis to near occlusion= ICA PSV > 230 cm/s: ratio > 4.0: ICA EDV > 100 cm/s. 5. Near occlusion= ICA PSV velocities may be low or undetectable: variable ratio and ICA EDV. 6. Total occlusion=unable to detect flow.
[2020-01-11 10:00] LABS: Calcium 9.4 mg/dL (8.4-10.2); Potassium 4.1 mmol/L (3.5-5.1)
--- NOTE | 2020-01-11 10:00 | ECHOF ---
Referral Reason:exertional dyspnea MEASUREMENTS -------- HEIGHT: 152.4 cm WEIGHT: 104.8 kg BP: RVIDd: 2.8 cm (< 3.3) IVSd: 1.3 cm (0.6 - 1.1) LVIDd: 5.3 cm (3.9 - 5.3) LVPWd: 1.4 cm (0.6 - 1.1) IVSs: 1.4 cm LVIDs: 4.8 cm LVPWs: 0.9 cm LA Diam: 4.3 cm (2.7 - 3.8) Ao Diam: 3.1 cm (2.0 - 3.7) AV Cusp: 1.6 cm (1.5 - 2.6) LA Diam: 3.8 cm (2.7 - 3.8) MV EXCURSION: 18.048 mm (> 18.000) MV EF SLOPE: 51 mm/s (70 - 150) EPSS: 1.3 cm MV E Dread: 0.37 m/s MV DecT: 298 ms MV A Dread: 0.73 m/s MV E/A Ratio: 0.51 RAP: 5.00 mmHg RVSP: 15.77 mmHg FINDINGS -------- Paced rhythm. This was a techncally difficult study with suboptimal views, , Lumason utilized for enhancement of im ages. The left ventricular size is normal. There is mild concentric left ventricular hypertrophy. Overa ll left ventricular systolic function is moderate-severely impaired with, an EF between 30 - 35 %. Basal inferior LV wall motion is akinetic. Mid inferior LV wall motion is akinetic. Posterior h ypokinesis The right ventricle is normal in size. The left atrium is mildly dilated. The right atrial size is normal. There is mild aortic valve sclerosis. There is no evidence of aortic regurgitation. Mild mitral annular calcification present. Mild mitral regurgitation is present. Mild tricuspid regurgitation present. Right ventricular systolic pressure is normal at < 35 mmHg. There is no pulmonic regurgitation present. The aortic root size is normal. There is no pericardial effusion. CONCLUSIONS -------- 1. Paced rhythm. 2. This was a techncally difficult study with suboptimal views, , Lumason utilized for enhancement of images. 3. The left ventricular size is normal. 4. There is mild concentric left ventricular hypertrophy. 5. Basal inferior LV wall motion is akinetic. 6. Mid inferior LV wall motion is akinetic. 7. Posterior hypokinesis 8. The right ventricle is normal in size. 9. The left atrium is mildly dilated. 10. The right atrial size is normal. 11. There is mild aortic valve sclerosis. 12. Mild mitral annular calcification present. 13. Mild mitral regurgitation is present. 14. Mild tricuspid regurgitation present. 15. There is no pulmonic regurgitation present. 16. The aortic root size is normal. 17. There is no pericardial effusion. PAYING TELLER: Stella Parish RDCS
[2020-01-11 10:12] LABS: C Reactive Protein 35.1 mg/L (<10.0)
--- NOTE | 2020-01-11 10:18 | P.CRDCN ---
History of Present Illness Consult date: 01/11/20 History of present illness: CHIEF COMPLAINT: CHF HISTORY OF PRESENT ILLNESS: This is a 79-year old male with a past medical h istory significant for ischemic cardiomyopathy with previous ICD placement, coronary artery disease with previous PCI, congestive heart failure, COPD, diabetes mellitus, chronic kidney disease, and pulmonary emboli. Patient follows in the office with Dr. Zuñiga. We have been asked to see the patient in consultation for CHF. Patient examined this morning at the bedside. He reports feeling short of breath for the last 3 weeks. He states his dyspnea has continued to worsen in severity over the past couple days and he is out of breath just walking to the bathroom. He denies any chest pain or pressure. Denies dizziness or lightheadedness. Echocardiogram completed 01/10/2020 revealed ejection fraction between 30 and 35%, mild mitral regurgitation, and mild tricuspid regurgitation. Patient underwent cardiac catheterization in October [address] Zuñiga revealing total occlusion of the RCA which is not new and also stenting of the mid LAD with drug-eluting stent. DIAGNOSTICS: EKG reveals sinus rhythm with PVCs Chest xray chronic changes and cardiomegaly without acute pulmonary process Laboratory data: WBC 10.1. Hemoglobin 12.2. Platelet count 236. Sodium 141. Potassium 4.1. BUN 35. Creatinine 2.21. Magnesium 2.1. Troponin negative 3. BNP 1290 Current home cardiac medications include Coreg 6.25 mg twice a day, losartan 59 g daily, Lasix 80 mg by mouth twice a day, Lipitor 40 mg daily, and Eliquis 5 mgBID REVIEW OF SYSTEMS: At the time of my exam: CONSTITUTIONAL: Denies fever or chills. HEENT: Denies blurred vision, vision changes, or eye pain. Denies hemoptysis CARDIOVASCULAR: Denies chest pain, orthopnea, PND or palpitations RESPIRATORY: No shortness of breath. GASTROINTESTINAL: Denies abdominal pain. Denies nausea or vomiting. HEMATOLOGIC: Denies bleeding disorders. GENITOURINARY: Denies any blood in urine. SKIN: Denies pruitis. Denies rash. PHYSICAL EXAM: VITAL SIGNS: Reviewed. GENERAL: Well-developed in no acute distress. HEENT: Head is normocephalic. Pupils are equal, round. Sclerae anicteric. Mucous membranes of the mouth are moist. Neck supple. No JVD or thyromegaly LUNGS: Respirations even and unlabored. Lungs essentially clear to auscultation bilaterally. HEART: Regular rate and rhythm. S1 and S2 heard. ABDOMEN: Soft. Nondistended. Nontender. EXTREMITIES: Normal range of motion. No clubbing or cyanosis. Peripheral pulses intact. No lower extremity edema NEUROLOGIC: Awake and alert. Oriented x 3. ASSESSMENT: Shortness of breath, rule out covid 19 Acute exacerbation of chronic systolic heart failure Ischemic cardiomyopathy, EF 30%, status post ICD placement Coronary artery disease with previous PCI to LAD History of pulmonary emboli, on anticoagulation with Eliquis Hypertension Hyperlipidemia COPD Chronic kidney disease Obesity: BMI 31.9 PLAN: Resume home cardiac medications Continue IV lasix for today Monitor kidney function Daily weights Accurate intake and output Await results of Covid testing Nurse practitioner note has been reviewed by physician. Signing provider agrees with the documented findings, assessment, and plan of care. Past Medical History Past Medical History: Coronary Artery Disease (CAD), Cancer, Chest Pain / Angina, Heart Failure, COPD, Diabetes Mellitus, Eye Disorder, Hyperlipidemia, Hypertension, Myocardial Infarction ([place]), Osteoarthritis ([place]), Pneumonia, Prostate Disorder, Pulmonary Embolus ([place]), Renal Disease Additional Past Medical History / Comment(s): NIDDM type II, chronic kidney dise ase stage III, R eye glaucoma, tracheobronchitis, ischemic cardiomyopathy with AICD, pulmonary emboli L lung, prostatitis, prostate cancer with surgery, UTI, chronic haider/cervical and bilateral shoulder pain, back pain, gout, fatty tumor R back Last Myocardial Infarction Date:: 10/18/16 History of Any Multi-Drug Resistant Organisms: None Reported Past Surgical History: AICD, Back Surgery, Heart Catheterization, Heart Cathet erization With Stent, Hernia Repair, Pacemaker, Prostate Surgery Additional Past Surgical History / Comment(s): CARDIOVERSION/WORE LEFE VEST UNTIL AICD/pacer IMPLANTED 01-10-17.. lumbar surgery twice, cervical epidural injections, bilateral inguinal hernia repairs, TURP, colonoscopy, bilateral cataract removals. Past Anesthesia/Blood Transfusion Reactions: No Reported Reaction Date of Last Stent Placement:: 10/18/16 Type of Cardiac Device: AICD Device Placement Date:: 01-10-17 Past Psychological History: No Psychological Hx Reported Additional Psychological History / Comment(s): Pt is independent. Lives with his in a single level home that has 1 porch step to enter home. No assistive devices. Pt drives. No pets. No homecare services. No past service. 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 Smoking Status: Never smoker Past Alcohol Use History: None Reported Additional Past Alcohol Use History / Comment(s): started smoking as teen, quit 1983 was smoking 2ppd Past Drug Use History: None Reported - Past Family History Mother Family Medical History: Unable to Obtain Additional Family Medical History / Comment(s): Mother of unknown cause. Father Family Medical History: Unable to Obtain Additional Family Medical History / Comment(s): Father of unknown cause. Medications and Allergies Home Medications Medication Instructions Recorded Confirmed Type Latanoprost [Xalatan 0.005%] 1 drop BOTH EYES HS 10/18/16 01/10/20 History metFORMIN HCL ER [Glucophage Xr] 500 mg PO AC-SUPPER 10/18/16 01/10/20 History Atorvastatin [Lipitor] 40 mg PO AC-SUPPER 01/07/17 01/10/20 History Losartan [Cozaar] 50 mg PO DAILY@0700 03/22/19 01/10/20 History Apixaban [Eliquis] 5 mg PO BID@0700,1700 01/02/20 01/10/20 History Calcium Polycarbophil [Fiber-Lax] 1,250 mg PO BID@0700,1700 01/02/20 01/10/20 History Furosemide [Lasix] 80 mg PO BID@0700,1700 01/02/20 01/10/20 History Dorzolamide/Timolol/Pf 1 drop BOTH EYES HS 01/10/20 01/10/20 History [Dorzolamide 2%-Timolol 0.5%] Gabapentin [Neurontin] 300 mg PO BID@0700,1700 01/10/20 01/10/20 History carvediloL [Coreg] 6.25 mg PO BID@0700,1700 01/10/20 01/10/20 History Allergies Allergy/AdvReac Type Severity Reaction Status Date / Time spironolactone Allergy Unknown Verified 01/10/20 13:22 hydrocodone bitartrate AdvReac Confusion Verified 01/10/20 13:22 [From Vicodin] Physical Exam Vitals: Vital Signs Temp Pulse Pulse Resp BP BP Pulse Ox 01/11/20 04:00 98.5 F 75 17 134/62 94 L 01/11/20 00:00 98.2 F 62 18 124/60 95 01/10/20 21:53 97.6 F 63 17 170/76 94 L 01/10/20 21:07 98.2 F 84 18 142/76 97 01/10/20 16:01 97.9 F 63 18 134/73 98 01/10/20 15:00 56 L 17 163/94 99 01/10/20 14:47 60 20 171/88 98 01/10/20 14:30 70 16 157/86 98 01/10/20 14:00 55 L 16 146/73 96 01/10/20 13:30 55 L 16 137/71 98 01/10/20 13:00 57 L 16 143/67 99 01/10/20 12:30 56 L 16 140/73 98 01/10/20 12:00 59 L 16 01/10/20 11:56 58 L 18 140/73 98 01/10/20 11:22 97.9 F 70 26 H 116/71 97 Intake and Output 01/10/20 01/11/20 01/11/20 22:59 06:59 14:59 Output Total 1800 Balance -1800 Output: Urine 1800 Other: Voiding Method Urinal Weight 104.78 kg 101 kg Results 01/11/20 07:25 01/11/20 08:48 Cardiac Enzymes 01/10/20 01/10/20 01/10/20 Range/Units 12:44 12:44 16:39 AST 48 (17-59) U/L Lactate Dehydrogenase 844 H (313-618) U/L Troponin I <0.012 <0.012 (0.000-0.034) ng/mL 01/10/20 01/11/20 Range/Units 18:53 07:25 AST 44 (17-59) U/L Lactate Dehydrogenase 644 H (313-618) U/L Troponin I <0.012 (0.000-0.034) ng/mL Coagulation 01/10/20 Range/Units 12:44 PT 10.9 (9.0-12.0) sec APTT 26.3 (22.0-30.0) sec CBC 01/10/20 01/11/20 Range/Units 12:44 07:25 WBC 11.2 H 10.1 (3.8-10.6) k/uL RBC 3.93 L 3.91 L (4.30-5.90) m/uL Hgb 12.4 L 12.2 L (13.0-17.5) gm/dL Hct 38.3 L 38.5 L (39.0-53.0) % Plt Count 266 D 236 (150-450) k/uL Comprehensive Metabolic Panel 01/10/20 01/11/20 01/11/20 Range/Units 12:44 07:25 08:48 Sodium 139 140 141 (137-145) mmol/L Potassium 4.5 4.3 4.1 (3.5-5.1) mmol/L Chloride 107 103 103 (98-107) mmol/L Carbon Dioxide 24 30 29 (22-30) mmol/L BUN 34 H 35 H 35 H (9-20) mg/dL Creatinine 1.88 H 2.22 H 2.21 H (0.66-1.25) mg/dL Glucose 96 117 H 139 H (74-99) mg/dL Calcium 9.1 9.2 9.4 (8.4-10.2) mg/dL AST 48 44 (17-59) U/L ALT 84 H 74 H (4-49) U/L Alkaline Phosphatase 193 H 191 H (38-126) U/L Total Protein 7.6 7.3 (6.3-8.2) g/dL Albumin 3.7 3.6 (3.5-5.0) g/dL Current Medications Generic Name Dose Route Start Last Admin Trade Name Freq PRN Reason Stop Dose Admin Acetaminophen 650 mg 01/10/20 16:16 Acetaminophen Tab 325 Mg Tab PO Q6HR PRN Mild Pain or Fever > 100.5 Apixaban 5 mg 01/10/20 18:00 01/11/20 06:35 Apixaban 5 Mg Tab PO 5 mg BID@0700,1700 ANGELIQUE Administration Atorvastatin Calcium 40 mg 01/10/20 17:30 01/10/20 18:27 Atorvastatin 40 Mg Tab PO 40 mg AC-SUPPER ANGELIQUE Administration Calcium Polycarbophil 1,250 mg 01/10/20 17:00 01/11/20 06:35 Calcium Polycarbophil 625 Mg Tab PO Not Given BID@0700,1700 [facility] Carvedilol 6.25 mg 01/10/20 18:00 01/11/20 06:35 Carvedilol 6.25 Mg Tab PO 6.25 mg BID@0700,1700 [facility] Administration Docusate Sodium 100 mg 01/10/20 16:16 01/10/20 18:27 Docusate 100 Mg Cap PO 100 mg BID PRN Administration Constipation Furosemide 80 mg 01/10/20 21:00 01/11/20 09:18 Furosemide 10 Mg/Ml 10 Ml Vial IV 80 mg BID ANGELIQUE Administration Gabapentin 300 mg 01/10/20 17:00 01/11/20 06:35 Gabapentin 300 Mg Cap PO 300 mg BID@0700,1700 [facility] Administration Insulin Aspart 0 unit 01/10/20 17:30 01/11/20 06:32 Insulin Aspart (Novolog) 100 Unit/Ml Vial SQ Not Given AC-TID [facility] Protocol Losartan Potassium 50 mg 01/11/20 07:00 01/11/20 06:35 Losartan 50 Mg Tab PO 50 mg DAILY@0700 [facility] Administration Naloxone HCl 0.2 mg 01/10/20 16:16 Naloxone 0.4 Mg/Ml 1 Ml Vial IV Q2M PRN Opioid Reversal Ondansetron HCl 4 mg 01/10/20 16:16 Ondansetron 4 Mg/2 Ml Vial IVP Q8HR PRN Nausea And Vomiting Intake and Output 01/10/20 01/11/20 01/11/20 22:59 06:59 14:59 Output Total 1800 Balance -1800 Output: Urine 1800 Other: Voiding Method Urinal Weight 104.78 kg 101 kg 01/11/20 07:25 01/11/20 08:48
--- NOTE | 2020-01-11 11:02 | P.PN ---
Subjective Progress Note Date: 01/11/20 Pt continues to report TRIAAN. He continues to report weakness overall. Also with muscle aches. Objective - Vital Signs Vital signs: Vital Signs Temp 98.6 F 01/11/20 09:00 Pulse 77 01/11/20 09:00 Resp 22 01/11/20 09:00 BP 106/67 01/11/20 09:00 Pulse Ox 97 01/11/20 09:00 Intake & Output 01/10/20 01/11/20 01/11/20 18:59 06:59 18:59 Output Total 1800 Balance -1800 Weight 104.78 kg 101 kg Output: Urine 1800 Other: Voiding Method Urinal - Exam Gen: awake, alert HEENT: normocephalic, atraumatic, good hearing acuity, moist mucous membranes, + JVD Resp: CTAB, good air exchange, no accessory muscle use, no wheezes, crackles, rhonchi CVS: good distal perfusion x 4, RRR, no murmurs, clicks, gallops GI: soft, NTTP, ND : no SPT, no CVAT, vazquez catheter not present MSK: no pitting edema, no clubbing Neuro: non-focal, no sensory deficits, appropriate tone Psych: cooperative, euthymic mood - Labs CBC & Chem 7: 01/11/20 07:25 01/11/20 08:48 Labs: Abnormal Lab Results - Last 24 Hours (Table) 01/10/20 01/10/20 01/10/20 Range/Units 12:44 12:44 12:44 WBC 11.2 H (3.8-10.6) k/uL RBC 3.93 L (4.30-5.90) m/uL Hgb 12.4 L (13.0-17.5) gm/dL Hct 38.3 L (39.0-53.0) % Neutrophils # 8.7 H (1.3-7.7) k/uL D-Dimer 0.69 H (<0.60) mg/L FEU BUN 34 H (9-20) mg/dL Creatinine 1.88 H (0.66-1.25) mg/dL Glucose (74-99) mg/dL POC Glucose (mg/dL) (75-99) mg/dL ALT 84 H (4-49) U/L Alkaline Phosphatase 193 H (38-126) U/L Lactate Dehydrogenase 844 H (313-618) U/L Creatine Kinase 28 L (55-170) U/L C-Reactive Protein 40.6 H (<10.0) mg/L Procalcitonin (0.02-0.09) ng/mL 01/10/20 01/10/20 01/11/20 Range/Units 12:44 18:38 06:01 WBC (3.8-10.6) k/uL RBC (4.30-5.90) m/uL Hgb (13.0-17.5) gm/dL Hct (39.0-53.0) % Neutrophils # (1.3-7.7) k/uL D-Dimer (<0.60) mg/L FEU BUN (9-20) mg/dL Creatinine (0.66-1.25) mg/dL Glucose (74-99) mg/dL POC Glucose (mg/dL) 112 H 122 H (75-99) mg/dL ALT (4-49) U/L Alkaline Phosphatase (38-126) U/L Lactate Dehydrogenase (313-618) U/L Creatine Kinase (55-170) U/L C-Reactive Protein (<10.0) mg/L Procalcitonin 0.12 H (0.02-0.09) ng/mL 01/11/20 01/11/20 01/11/20 Range/Units 07:25 07:25 08:48 WBC (3.8-10.6) k/uL RBC 3.91 L (4.30-5.90) m/uL Hgb 12.2 L (13.0-17.5) gm/dL Hct 38.5 L (39.0-53.0) % Neutrophils # 8.0 H (1.3-7.7) k/uL D-Dimer (<0.60) mg/L FEU BUN 35 H 35 H (9-20) mg/dL Creatinine 2.22 H 2.21 H (0.66-1.25) mg/dL Glucose 117 H 139 H (74-99) mg/dL POC Glucose (mg/dL) (75-99) mg/dL ALT 74 H (4-49) U/L Alkaline Phosphatase 191 H (38-126) U/L Lactate Dehydrogenase 644 H (313-618) U/L Creatine Kinase (55-170) U/L C-Reactive Protein (<10.0) mg/L Procalcitonin (0.02-0.09) ng/mL 01/11/20 01/11/20 Range/Units 09:06 09:30 WBC (3.8-10.6) k/uL RBC (4.30-5.90) m/uL Hgb (13.0-17.5) gm/dL Hct (39.0-53.0) % Neutrophils # (1.3-7.7) k/uL D-Dimer 0.66 H (<0.60) mg/L FEU BUN (9-20) mg/dL Creatinine (0.66-1.25) mg/dL Glucose (74-99) mg/dL POC Glucose (mg/dL) (75-99) mg/dL ALT (4-49) U/L Alkaline Phosphatase (38-126) U/L Lactate Dehydrogenase (313-618) U/L Creatine Kinase (55-170) U/L C-Reactive Protein 35.1 H (<10.0) mg/L Procalcitonin (0.02-0.09) ng/mL Assessment and Plan Assessment: 1. Dyspnea on exertion 2. Myalgias and arthralgias 3. Right facial numbness 4. Chronic systolic heart failure, EF 35% 5. Symptomatically, he is status post AICD 6. CAD 7. Hypertension, essential 8. Hyperlipidemia 9. Diabetes type 2 10. History of Pulmonary Embolism 79-year-old male with a past medical history of ischemic cardiomyopathy and is post-AICD, CAD/HTN/HLD/DM presented with 3 weeks of increasing myalgias and arthralgias with dyspnea on exertion as well as new right facial numbness with symptoms concerning for Covid 19 as well as early congestive heart failure changes. Plan: - admit to telemetry, droplet precautions - COVID test pending - Influenza A/B pending - no indication for dexamethasone as patient is on room air - trend daily inflammatory markers: CRP, D-Dimer, LDH, Ferritin, Procalcitonin - I/Os, daily weights - increase lasix to 80mg IV BID for now, can likely convert back to PO tomorrow - cardiology c/s - repeat echo - MRI Brain to r/o stroke if imaging can be performed with pacemaker, otherwise can cancel - carotid doppler of the neck to rule out stenotic disease - continue home eliquis, coreg, losartan - continue home glaucoma meds - continue home statin - accuchecks and insulin LD SS ACHS Full Code; but would not want to be kept alive in a prolonged manner on life support is DPOA
[2020-01-11 11:49] LABS: Glucose,Whole Blood 107 mg/dL (75-99)
[2020-01-11 15:24] LABS: Ferritin 101.1 ng/mL (22.0-322.0)
[2020-01-11] MEDS: ATORVASTATIN 40 MG TAB PO SCH (16:22)
[2020-01-11] MEDS: ACETAMINOPHEN TAB 325 MG TAB PO PRN (16:28)
[2020-01-11 16:38] LABS: Glucose,Whole Blood 155 mg/dL (75-99)
[2020-01-11 20:40] LABS: Glucose,Whole Blood 239 mg/dL (75-99)
[2020-01-12 06:08] LABS: Glucose,Whole Blood 160 mg/dL (75-99)
[2020-01-12] MEDS: APIXABAN 5 MG TAB PO SCH ×2 (06:27→17:33)
[2020-01-12] MEDS: carvediloL 6.25 MG TAB PO SCH ×2 (06:27→17:33)
[2020-01-12] MEDS: GABAPENTIN 300 MG CAP PO SCH ×2 (06:27→17:33)
[2020-01-12] MEDS: LOSARTAN 50 MG TAB PO SCH (06:28)
[2020-01-12] MEDS: INSULIN ASPART (NovoLOG) 100 UNIT/ML VIAL SQ SCH ×3 (06:28→17:18)
[2020-01-12 07:33] LABS: Basophils # (A) 0.1 k/uL (0-0.2); Basophils % (A) 1 %; Eosinophils # (A) 0.4 k/uL (0-0.7); Eosinophils % (A) 4 %; HCT 39.7 % (39.0-53.0); HGB 12.5 gm/dL (13.0-17.5); Hypochromasia Slight; Lymphocytes % (A) 10 %; MCH 30.9 pg (25.0-35.0); MCHC 31.5 g/dL (31.0-37.0); MCV 98.1 fL (80.0-100.0); Mean Platelet Volume 7.7; Monocytes # (A) 0.4 k/uL (0-1.0); Monocytes % (A) 4 %; Neutrophils # (A) 7.7 k/uL (1.3-7.7); Neutrophils % (A) 79 %; Platelet Count 252 k/uL (150-450); RBC 4.05 m/uL (4.30-5.90); RDW 14.8 % (11.5-15.5); WBC 9.8 k/uL (3.8-10.6)
[2020-01-12 07:42] LABS: Albumin 3.7 g/dL (3.5-5.0); Calcium 9.2 mg/dL (8.4-10.2); Magnesium 2.3 mg/dL (1.6-2.3); Potassium 4.4 mmol/L (3.5-5.1); Total Bilirubin 0.7 mg/dL (0.2-1.3); Total Protein 7.5 g/dL (6.3-8.2)
[2020-01-12] MEDS: FUROSEMIDE 10 MG/ML 10 ML VIAL IV SCH (08:51)
--- NOTE | 2020-01-12 10:30 | XR ---
EXAMINATION TYPE: XR chest 1V portable DATE OF EXAM: 01/12/2020 COMPARISON: 01/10/2020 HISTORY: Cough TECHNIQUE: Single frontal view of the chest is obtained. FINDINGS: There is increased pleural density along the lateral margin of the left lung. Cardiac marianna ce seen. Heart size stable. Atherosclerotic change aorta. No overt failure or pneumothorax. IMPRESSION: 1. There is increased pleural-based density within the left upper lobe laterally. Could represent dev eloping infiltrate. Mass not excluded follow-up to resolution recommended
--- NOTE | 2020-01-12 11:22 | P.PN ---
Subjective Progress Note Date: 01/12/20 Reports some subjective improvement in TRIANA, but still feels overall weak. Objective - Vital Signs Vital signs: Vital Signs Temp 98.1 F 01/12/20 08:00 Pulse 79 01/12/20 08:00 Resp 18 01/12/20 08:00 BP 106/60 01/12/20 08:00 Pulse Ox 98 01/12/20 08:00 Intake & Output 01/11/20 01/12/20 01/12/20 18:59 06:59 18:59 Intake Total 480 240 Output Total 100 Balance 380 240 Weight 98.6 kg Intake: Oral 480 240 Output: Urine 100 Other: Voiding Method Urinal Urinal - Exam Gen: awake, alert HEENT: normocephalic, atraumatic, good hearing acuity, moist mucous membranes, +JVD Resp: CTAB, good air exchange, no accessory muscle use, no wheezes, crackles, rhonchi CVS: good distal perfusion x 4, RRR, no murmurs, clicks, gallops GI: soft, NTTP, ND : no SPT, no CVAT, vazquez catheter not present MSK: no pitting edema, no clubbing Neuro: non-focal, no sensory deficits, appropriate tone Psych: cooperative, euthymic mood - Labs CBC & Chem 7: 01/12/20 06:57 01/12/20 06:57 Labs: Abnormal Lab Results - Last 24 Hours (Table) 01/11/20 01/11/20 01/11/20 Range/Units 09:30 11:48 16:37 RBC (4.30-5.90) m/uL Hgb (13.0-17.5) gm/dL D-Dimer (<0.60) mg/L FEU BUN (9-20) mg/dL Creatinine (0.66-1.25) mg/dL Glucose (74-99) mg/dL POC Glucose (mg/dL) 107 H 155 H (75-99) mg/dL ALT (4-49) U/L Alkaline Phosphatase (38-126) U/L Procalcitonin 0.13 H (0.02-0.09) ng/mL 01/11/20 01/12/20 01/12/20 Range/Units 20:35 06:07 06:57 RBC 4.05 L (4.30-5.90) m/uL Hgb 12.5 L (13.0-17.5) gm/dL D-Dimer (<0.60) mg/L FEU BUN (9-20) mg/dL Creatinine (0.66-1.25) mg/dL Glucose (74-99) mg/dL POC Glucose (mg/dL) 239 H 160 H (75-99) mg/dL ALT (4-49) U/L Alkaline Phosphatase (38-126) U/L Procalcitonin (0.02-0.09) ng/mL 01/12/20 01/12/20 Range/Units 06:57 06:57 RBC (4.30-5.90) m/uL Hgb (13.0-17.5) gm/dL D-Dimer 0.61 H (<0.60) mg/L FEU BUN 46 H (9-20) mg/dL Creatinine 2.47 H (0.66-1.25) mg/dL Glucose 127 H (74-99) mg/dL POC Glucose (mg/dL) (75-99) mg/dL ALT 64 H (4-49) U/L Alkaline Phosphatase 179 H (38-126) U/L Procalcitonin (0.02-0.09) ng/mL Microbiology - Last 24 Hours (Table) 01/10/20 12:44 Blood Culture - Preliminary Blood No Growth after 24 hours Assessment and Plan Assessment: 1. Dyspnea on exertion 2. Myalgias and arthralgias 3. Right facial numbness 4. Chronic systolic heart failure, EF 35% 5. Symptomatically, he is status post AICD 6. CAD 7. Hypertension, essential 8. Hyperlipidemia 9. Diabetes type 2 10. History of Pulmonary Embolism 79-year-old male with a past medical history of ischemic cardiomyopathy and is post-AICD, CAD/HTN/HLD/DM presented with 3 weeks of increasing myalgias and arthralgias with dyspnea on exertion as well as new right facial numbness with symptoms concerning for Covid 19 as well as early congestive heart failure changes. Plan: - admit to telemetry, droplet precautions - COVID test pending - Influenza A/B negative - no indication for dexamethasone as patient is on room air - trend daily inflammatory markers: CRP, D-Dimer, LDH, Ferritin, Procalcitonin - I/Os, daily weights - increase lasix to 80mg IV BID for now, can likely convert back to PO tomorrow - cardiology c/s, appreciate recs - repeat echo = LV hypo/akinesis, EF 30-35% - carotid doppler of the neck to rule out stenotic disease, was negative for HD significant stenosis - CT Thorax to rule out pleural based mass/infiltrate - continue home eliquis, coreg, losartan - continue home glaucoma meds - continue home statin - accuchecks and insulin LD SS ACHS Full Code; but would not want to be kept alive in a prolonged manner on life support is DPOA
[2020-01-12 11:25] LABS: Ferritin 87.5 ng/mL (22.0-322.0)
[2020-01-12 11:37] LABS: Glucose,Whole Blood 167 mg/dL (75-99)
--- NOTE | 2020-01-12 11:50 | P.PN ---
Subjective Progress Note Date: 01/12/20 CHIEF COMPLAINT: CHF HISTORY OF PRESENT ILLNESS: Patient examined this morning at the bedside. He denies chest pain or pressure. He continues to have shortness of breath with minimal exertion such as walking to the restroom in his room. He reports little improvement in his shortness of breath since coming to the hospital. He remains on IV Lasix 80 mg twice a day. Patient's creatinine is 2.47 today. Creatinine on admission 1.8. Chest x-ray today reveals increased pleural-based density within the left upper lobe laterally. Could represent developing infiltrate. Mass not excluded. PHYSICAL EXAM: VITAL SIGNS: Reviewed. GENERAL: Well-developed in no acute distress. HEENT: Head is normocephalic. Pupils are equal, round. Sclerae anicteric. Mucous membranes of the mouth are moist. Neck supple. No JVD or thyromegaly LUNGS: Respirations even and unlabored. Lungs diminished. HEART: Regular rate and rhythm. S1 and S2 heard. ABDOMEN: Soft. Nondistended. Nontender. EXTREMITIES: Normal range of motion. No clubbing or cyanosis. Peripheral pulses intact. No lower extremity edema NEUROLOGIC: Awake and alert. Oriented x 3. ASSESSMENT: Shortness of breath, rule out covid 19 Acute exacerbation of chronic systolic heart failure Ischemic cardiomyopathy, EF 30%, status post ICD placement Coronary artery disease with previous PCI to LAD History of pulmonary emboli, on anticoagulation with Eliquis Hypertension Hyperlipidemia COPD Acute on chronic kidney disease Obesity: BMI 31.9 PLAN: Continue Eliquis for anticoagulation Change lasix to 40mg PO BID due to worsening kidney function Monitor kidney function Daily weights Accurate intake and output Await results of Covid testing CT chest ordered per internal medicine. Await results. Nurse practitioner note has been reviewed by physician. Signing provider agrees with the documented findings, assessment, and plan of care. Objective - Vital Signs Vital signs: Vital Signs Temp 98.1 F 01/12/20 08:00 Pulse 79 01/12/20 08:00 Resp 18 01/12/20 08:00 BP 106/60 01/12/20 08:00 Pulse Ox 98 01/12/20 08:00 Intake & Output 01/11/20 01/12/20 01/12/20 18:59 06:59 18:59 Intake Total 480 240 Output Total 100 Balance 380 240 Weight 98.6 kg Intake: Oral 480 240 Output: Urine 100 Other: Voiding Method Urinal Urinal - Labs CBC & Chem 7: 01/12/20 06:57 01/12/20 06:57 Labs: Abnormal Lab Results - Last 24 Hours (Table) 01/11/20 01/11/20 01/11/20 Range/Units 09:30 11:48 16:37 RBC (4.30-5.90) m/uL Hgb (13.0-17.5) gm/dL D-Dimer (<0.60) mg/L FEU BUN (9-20) mg/dL Creatinine (0.66-1.25) mg/dL Glucose (74-99) mg/dL POC Glucose (mg/dL) 107 H 155 H (75-99) mg/dL ALT (4-49) U/L Alkaline Phosphatase (38-126) U/L Procalcitonin 0.13 H (0.02-0.09) ng/mL 01/11/20 01/12/20 01/12/20 Range/Units 20:35 06:07 06:57 RBC 4.05 L (4.30-5.90) m/uL Hgb 12.5 L (13.0-17.5) gm/dL D-Dimer (<0.60) mg/L FEU BUN (9-20) mg/dL Creatinine (0.66-1.25) mg/dL Glucose (74-99) mg/dL POC Glucose (mg/dL) 239 H 160 H (75-99) mg/dL ALT (4-49) U/L Alkaline Phosphatase (38-126) U/L Procalcitonin (0.02-0.09) ng/mL 01/12/20 01/12/20 01/12/20 Range/Units 06:57 06:57 06:57 RBC (4.30-5.90) m/uL Hgb (13.0-17.5) gm/dL D-Dimer 0.61 H (<0.60) mg/L FEU BUN 46 H (9-20) mg/dL Creatinine 2.47 H (0.66-1.25) mg/dL Glucose 127 H (74-99) mg/dL POC Glucose (mg/dL) (75-99) mg/dL ALT 64 H (4-49) U/L Alkaline Phosphatase 179 H (38-126) U/L Procalcitonin 0.12 H (0.02-0.09) ng/mL 01/12/20 Range/Units 11:34 RBC (4.30-5.90) m/uL Hgb (13.0-17.5) gm/dL D-Dimer (<0.60) mg/L FEU BUN (9-20) mg/dL Creatinine (0.66-1.25) mg/dL Glucose (74-99) mg/dL POC Glucose (mg/dL) 167 H (75-99) mg/dL ALT (4-49) U/L Alkaline Phosphatase (38-126) U/L Procalcitonin (0.02-0.09) ng/mL Microbiology - Last 24 Hours (Table) 01/10/20 12:44 Blood Culture - Preliminary Blood No Growth after 24 hours
[2020-01-12] MEDS ORDERED: LEVOFLOXACIN 750 MG TAB PO SCH (14:00)
--- NOTE | 2020-01-12 14:13 | CT ---
EXAMINATION TYPE: CT chest wo con DATE OF EXAM: 01/12/2020 COMPARISON: Chest x-ray earlier today. Prior chest CT January 11, 2017 HISTORY: SOB with exertion/ worse when he walks CT DLP: 668.2 mGycm. Automated Exposure Control for Dose Reduction was Utilized. TECHNIQUE: CT scan of the thorax is performed without IV contrast. FINDINGS: LUNGS: Background mild to moderate underlying emphysematous change greatest in the upper lungs. Exam suboptimal as patient unable to hold breath. This limits evaluation particularly for subcentimeter no dules. Mild reticulation and groundglass opacities bilaterally are present. No suspicious focal conso lidation. No pleural effusion or pneumothorax seen bilaterally. No suspicious masses with particular attention to the lateral left midlung at area of x-ray concern. MEDIASTINUM: Lack of IV contrast is noted to limit evaluation for mediastinal and especially hilar a denopathy. There are no definitive greater than 1 cm hilar or mediastinal lymph nodes. No pericardi al effusion is seen. Cardiomegaly with dual lead pacemaker. Enlarged pulmonary artery is redemonstrat ed, CT findings consistent with underlying pulmonary hypertension. At least moderate coronary artery calcification is present which is noted marked underlying coronary artery disease. OTHER: Dependent gallstones in the gallbladder redemonstrated. Cortical thinning in both kidneys cons istent with product of chronic medical renal disease. Sefneoeg-bs-mciods facet change and visualized abdominal aorta with some ectasia/aneurysm measuring up to 3.1 cm transversely axial image 79. Multil evel spurring in the spine. IMPRESSION: 1. No suspicious new lateral left mid lung mass. Area is clear on CT suggesting overlying artifact. 2. Cardiomegaly with suggestion of mild alveolar and interstitial edema, correlate for CHF exacerbati on.
[2020-01-12 16:37] LABS: Glucose,Whole Blood 104 mg/dL (75-99)
[2020-01-12] MEDS: ATORVASTATIN 40 MG TAB PO SCH (17:33)
[2020-01-12] MEDS: FUROSEMIDE 40 MG TAB PO SCH (17:33)
[2020-01-12] MEDS: ACETAMINOPHEN TAB 325 MG TAB PO PRN (17:43)
[2020-01-12 20:14] LABS: Glucose,Whole Blood 150 mg/dL (75-99)
[2020-01-13] MEDS: INSULIN ASPART (NovoLOG) 100 UNIT/ML VIAL SQ SCH ×2 (00:24→06:42)
[2020-01-13 04:29] VITALS: RESP 18; TEMP 98
[2020-01-13 06:23] LABS: Glucose,Whole Blood 117 mg/dL (75-99)
[2020-01-13] MEDS: APIXABAN 5 MG TAB PO SCH (06:42)
[2020-01-13] MEDS: LOSARTAN 50 MG TAB PO SCH (06:42)
[2020-01-13] MEDS: carvediloL 6.25 MG TAB PO SCH (06:42)
[2020-01-13] MEDS: GABAPENTIN 300 MG CAP PO SCH (06:42)
[2020-01-13] MEDS: ACETAMINOPHEN TAB 325 MG TAB PO PRN (06:43)
[2020-01-13 08:55] LABS: Basophils # (A) 0.1 k/uL (0-0.2); Basophils % (A) 1 %; Eosinophils # (A) 0.3 k/uL (0-0.7); Eosinophils % (A) 3 %; HCT 39.6 % (39.0-53.0); HGB 12.5 gm/dL (13.0-17.5); Hypochromasia Slight; Lymphocytes # (A) 1.1 k/uL (1.0-4.8); Lymphocytes % (A) 9 %; MCH 31.1 pg (25.0-35.0); MCHC 31.6 g/dL (31.0-37.0); MCV 98.4 fL (80.0-100.0); Mean Platelet Volume 7.8; Monocytes # (A) 0.5 k/uL (0-1.0); Monocytes % (A) 4 %; Neutrophils # (A) 9.8 k/uL (1.3-7.7); Neutrophils % (A) 82 %; Platelet Count 248 k/uL (150-450); RBC 4.02 m/uL (4.30-5.90); RDW 14.7 % (11.5-15.5)
[2020-01-13 09:11] LABS: Albumin 3.6 g/dL (3.5-5.0); Calcium 8.7 mg/dL (8.4-10.2); Magnesium 2.2 mg/dL (1.6-2.3); Potassium 4.1 mmol/L (3.5-5.1); Total Bilirubin 0.6 mg/dL (0.2-1.3); Total Protein 7.2 g/dL (6.3-8.2)
[2020-01-13] MEDS: FUROSEMIDE 40 MG TAB PO SCH (09:12)
[2020-01-13 09:47] VITALS: BP 124/59; PULSE 68
--- NOTE | 2020-01-13 10:19 | P.DS ---
Providers Date of admission: 01/10/20 17:07 Expected date of discharge: 01/13/20 Attending physician: Shashank Godinez MD Consults: 01/10/20 16:19 Consult Physician Routine Consulting Provider: Jacobo Maddox Consult Reason/Comments: Heart Failure exacerbation Do you want consulting provider notified?: Yes Primary care physician: Belrtan Castillo MD Hospital Course: This is a 79-year-old male with very complex past medical history noted below who presented to the emergency room with worsening shortness of breath and dyspnea. Patient was evaluated in the ER and admitted to the hospital for further management of his medical problems noted below. 1. Acute on chronic systolic heart failure exacerbation, and echocardiogram showed EF of 35%. Patient was seen and evaluated by cardiology. He was started on diuretics with IV Lasix with good response. Lasix transitioned to oral 40 mg twice daily. Follow-up with cardiology in the office as directed. 2. Dyspnea on presentation with elevated inflammatory markers concerning for COVID-19: PCR sent and pending. Very less likely clinically. Inflammatory markers improved significantly. Patient is not on oxygen. Shortness of breath improved significantly. Computed tomography scan of the chest showed no acute findings. Patient was started on oral Levaquin renally dosed during this admission and will finish short course of antibiotic for 5 days. 3. Underlying ischemic cardiomyopathy status post ICD, continue medical management 4. Coronary artery disease with prior stent placement 5. History of pulmonary embolism on chronic anticoagulation with Eliquis 6. Stage IIIB chronic kidney disease with baseline creatinine around 2.5. 7. History of type 2 diabetes on metformin, discontinue metformin given worsening renal function. A1c 5.9. Diet controlled. Follow-up with PCP. Patient will be discharged home in a stable condition. COVID-19 test pending and patient will be contacted in case of positive result even though very less likely. For further details about this hospitalization please refer to the electronic chart. Patient Condition at Discharge: Fair Plan - Discharge Summary Discharge Rx Participant: No New Discharge Prescriptions: New Furosemide [Lasix] 40 mg PO BID@0900,1600 #60 tab Levofloxacin [Levaquin] 750 mg PO Q48H #2 tab Continue Latanoprost [Xalatan 0.005%] 1 drop BOTH EYES HS Atorvastatin [Lipitor] 40 mg PO AC-SUPPER Losartan [Cozaar] 50 mg PO DAILY@0700 Apixaban [Eliquis] 5 mg PO BID@0700,1700 Calcium Polycarbophil [Fiber-Lax] 1,250 mg PO BID@0700,1700 carvediloL [Coreg] 6.25 mg PO BID@0700,1700 Dorzolamide/Timolol/Pf [Dorzolamide 2%-Timolol 0.5%] 1 drop BOTH EYES HS Gabapentin [Neurontin] 300 mg PO BID@0700,1700 Discontinued metFORMIN HCL ER [Glucophage Xr] 500 mg PO AC-SUPPER Furosemide [Lasix] 80 mg PO BID@0700,1700 Discharge Medication List Latanoprost [Xalatan 0.005%] 1 drop BOTH EYES HS 10/18/16 [History] Atorvastatin [Lipitor] 40 mg PO AC-SUPPER 01/07/17 [History] Losartan [Cozaar] 50 mg PO DAILY@0700 03/22/19 [History] Apixaban [Eliquis] 5 mg PO BID@0700,1700 01/02/20 [History] Calcium Polycarbophil [Fiber-Lax] 1,250 mg PO BID@0700,1700 01/02/20 [History] Dorzolamide/Timolol/Pf [Dorzolamide 2%-Timolol 0.5%] 1 drop BOTH EYES HS 01/10/20 [History] Gabapentin [Neurontin] 300 mg PO BID@0700,1700 01/10/20 [History] carvediloL [Coreg] 6.25 mg PO BID@0700,1700 01/10/20 [History] Furosemide [Lasix] 40 mg PO BID@0900,1600 #60 tab 01/13/20 [Rx] Levofloxacin [Levaquin] 750 mg PO Q48H #2 tab 01/13/20 [Rx] Follow up Appointment(s)/Referral(s): Beltran Castillo MD [Primary Care Provider] - 1-2 days Discharge Disposition: HOME SELF-CARE
--- NOTE | 2020-01-13 11:36 | P.PN ---
Subjective Progress Note Date: 01/13/20 This is a pleasant 79-year-old gentleman with history of ischemic cardiomyopathy and prior AICD, coronary artery disease with prior PCI, patient underwent cardiac catheterization in October 2016 revealing a total occlusion of the RCA as well as stent placement to the LAD performed at that time. He had an echo cardiac gram with Doppler study performed on the second of this month which revealed an ejection fraction of 30-35%, mild MR, and mild TR. COPD, diabetes, hyperlipidemia, hypertension, chronic kidney disease, and prior pulmonary embolism. Cardiology consultation was requested to see the patient for congestive cardiac failure. Has also been tested for coronavirus, coVID-19 which is still pending. His blood pressure this morning 124/60 with a heart rate in the 60s, 96% on room air. White blood cell count 12.0, hemoglobin 12.5, platelet count 248. Sodium 138, potassium 4.1, BUN 51, creatinine 2.5. The patient's creatinine on admission was 1.8. We will hold the patient's Lasix today, we will also hold off on the losartan for today because of the renal function. Check labs in the morning. Objective - Vital Signs Vital signs: Vital Signs Temp 98.0 F 01/13/20 04:00 Pulse 68 01/13/20 08:00 Resp 18 01/13/20 08:00 BP 124/59 01/13/20 08:00 Pulse Ox 96 01/13/20 08:00 Intake & Output 01/12/20 01/13/20 01/13/20 18:59 06:59 18:59 Intake Total 1140 600 Output Total 475 300 Balance 665 -300 600 Weight 97.9 kg Intake: Oral 1140 600 Output: Urine 475 300 Other: Voiding Method Urinal Urinal # Voids 1 - Exam PHYSICAL EXAMINATION: GENERAL: 79-year-old gentleman in no acute distress at the time of my examination. HEENT: Head is atraumatic, normocephalic. Pupils equal, round. Sclera anicteric. Conjunctiva are clear. Mucous membranes of the mouth are moist. Neck is supple. There is no elevated jugular venous pressure. No carotid bruit is heard. HEART EXAMINATION: Heart S1, S2 normal. No murmur or gallop heard. CHEST EXAMINATION: Lungs are clear with diminished air entry to the bases bilaterally ABDOMEN: Soft, nontender. Bowel sounds are heard. No organomegaly noted. EXTREMITIES: 2+ peripheral pulses with no evidence of peripheral edema and no calf tenderness noted. NEUROLOGIC patient is awake, alert and oriented 3 . . - Labs CBC & Chem 7: 01/13/20 07:52 01/13/20 07:52 Labs: Abnormal Lab Results - Last 24 Hours (Table) 01/12/20 01/12/20 01/12/20 Range/Units 06:57 06:57 11:34 WBC (3.8-10.6) k/uL RBC (4.30-5.90) m/uL Hgb (13.0-17.5) gm/dL Neutrophils # (1.3-7.7) k/uL BUN (9-20) mg/dL Creatinine (0.66-1.25) mg/dL Glucose (74-99) mg/dL POC Glucose (mg/dL) 167 H (75-99) mg/dL Alkaline Phosphatase (38-126) U/L C-Reactive Protein 3.1 H (0.0-0.8) mg/dL Procalcitonin 0.12 H (0.02-0.09) ng/mL 01/12/20 01/12/20 01/13/20 Range/Units 16:35 20:13 06:22 WBC (3.8-10.6) k/uL RBC (4.30-5.90) m/uL Hgb (13.0-17.5) gm/dL Neutrophils # (1.3-7.7) k/uL BUN (9-20) mg/dL Creatinine (0.66-1.25) mg/dL Glucose (74-99) mg/dL POC Glucose (mg/dL) 104 H 150 H 117 H (75-99) mg/dL Alkaline Phosphatase (38-126) U/L C-Reactive Protein (0.0-0.8) mg/dL Procalcitonin (0.02-0.09) ng/mL 01/13/20 01/13/20 Range/Units 07:52 07:52 WBC 12.0 H (3.8-10.6) k/uL RBC 4.02 L (4.30-5.90) m/uL Hgb 12.5 L (13.0-17.5) gm/dL Neutrophils # 9.8 H (1.3-7.7) k/uL BUN 51 H (9-20) mg/dL Creatinine 2.52 H (0.66-1.25) mg/dL Glucose 173 H (74-99) mg/dL POC Glucose (mg/dL) (75-99) mg/dL Alkaline Phosphatase 159 H (38-126) U/L C-Reactive Protein (0.0-0.8) mg/dL Procalcitonin (0.02-0.09) ng/mL Microbiology - Last 24 Hours (Table) 01/10/20 12:44 Blood Culture - Preliminary Blood No Growth after 48 hours Assessment and Plan Plan: Assessment and plan #1 systolic congestive heart failure acute on chronic #2 ischemic cardiomyopathy status post prior AICD #3 coronary artery disease with prior LAD stenting #4 history of pulmonary embolism #5 hypertension #6 hyperlipidemia #7 COPD #8 acute on chronic kidney disease Plan We will hold off on the Lasix as well as the Cozaar for 24 hours, check lytes BUN and creatinine in the morning. Covid testing remains pending. DNP note has been reviewed, I agree with a documented findings and plan of care. Patient was seen and examined.
== END 2020-01-13 12:45 | disposition home or self-care (01) | DRG 291 ==
LOC: EC 11:21 → 3SCARD 17:07
PROVIDERS: ADMIT Internal Medicine; ATTEND Internal Medicine
DX: I13.0 Hypertensive heart and chronic kidney disease with heart failure and stage 1 through stage 4 chronic kidney disease, or unspecified chronic kidney disease (principal); I50.23 Acute on chronic systolic (congestive) heart failure; J44.1 Chronic obstructive pulmonary disease with (acute) exacerbation; I25.10 Atherosclerotic heart disease of native coronary artery without angina pectoris; E78.5 Hyperlipidemia, unspecified; E66.9 Obesity, unspecified; Z20.828 Contact with and (suspected) exposure to other viral communicable diseases; E11.22 Type 2 diabetes mellitus with diabetic chronic kidney disease; M19.90 Unspecified osteoarthritis, unspecified site; I25.5 Ischemic cardiomyopathy; M10.9 Gout, unspecified; I25.82 Chronic total occlusion of coronary artery; N18.32 Chronic kidney disease, stage 3b; H40.9 Unspecified glaucoma; R62.7 Adult failure to thrive; R00.1 Bradycardia, unspecified; M79.10 Myalgia, unspecified site; R20.0 Anesthesia of skin; Z68.31 Body mass index [BMI] 31.0-31.9, adult; I25.2 Old myocardial infarction; Z79.899 Other long term (current) drug therapy; Z79.84 Long term (current) use of oral hypoglycemic drugs; Z79.01 Long term (current) use of anticoagulants; Z86.711 Personal history of pulmonary embolism; Z95.5 Presence of coronary angioplasty implant and graft; Z85.46 Personal history of malignant neoplasm of prostate; Z87.01 Personal history of pneumonia (recurrent); Z95.810 Presence of automatic (implantable) cardiac defibrillator; Z98.890 Other specified postprocedural states; Z98.42 Cataract extraction status, left eye; Z98.41 Cataract extraction status, right eye
CPT/HCPCS: 36415; 71045; 71046; 71250; 80048; 80053; 82550; 82728; 83605; 83615; 83735; 83880; 84145; 84484; 85025; 85379; 85610; 85730; 86140; 87040; 87502; 93005; 93306; 93880; 96374; 99285

== ENCOUNTER → 2020-03-20 | Outpatient (CLI) | payer MEDICARE, BC ==
[2020-03-20 12:16] LABS: Potassium 4.7 mmol/L (3.5-5.1)
[2020-03-20 12:25] LABS: HCT 40.2 % (39.0-53.0); HGB 13.1 gm/dL (13.0-17.5); Hypochromasia Slight; MCH 29.2 pg (25.0-35.0); MCHC 32.6 g/dL (31.0-37.0); MCV 89.5 fL (80.0-100.0); Mean Platelet Volume 8.2; Platelet Count 176 k/uL (150-450); RBC 4.49 m/uL (4.30-5.90); WBC 9.2 k/uL (3.8-10.6)
== END | disposition home or self-care (01) ==
LOC: LABPAT 09:11
PROVIDERS: ATTEND Internal Medicine Interventional Cardiology
DX: Z01.818 Encounter for other preprocedural examination (principal); I25.5 Ischemic cardiomyopathy
CPT/HCPCS: 36415; 80051; 82565; 84520; 85027

== ENCOUNTER → 2020-03-22 | Day surgery (SDC) | payer MEDICARE, BC ==
[2020-03-20 14:01] VITALS: BMI 33.0
[~2020-03-22] MED LIST changes: +ALPRAZolam 0.25 MG TAB PO PRN; +ALPRAZolam 0.5 MG TAB PO PRN; -AMIODARONE 450 MG in DEXTROSE 5% IN WATER 250 ML IV SCH; +ASPIRIN 325 MG TAB PO STA; +ATORVASTATIN 80 MG TAB PO STA; +HEPARIN SODIUM 1,000 UN/ML (10ML VL) IV ONE; +HEPARIN SODIUM 1,000 UN/ML (10ML VL) ONE; +HEPARIN SODIUM,PORCINE 10,000 UNIT in SODIUM CHLORIDE 0.9% 1,000 ML IRRIGATION PRN; +HEPARIN SODIUM,PORCINE 2,500 UNIT in SODIUM CHLORIDE 0.9% 250 ML IRRIGATION PRN; +IOPAMIDOL-370 100ML BTL INJ ONE; +LIDOCAINE 1% INJ 10MG/ML (20 ML MDV) ONE; +LIDOCAINE 1% INJ 10MG/ML (20 ML MDV) SQ ONE; +MIDAZOLAM 2 MG/2 ML VIAL IV ONE; +NITROGLYCERIN SL TABS 0.4 MG TAB SUBLINGUAL PRN; +SODIUM CHLORIDE 0.9% 1,000 ML IV SCH; +SODIUM CHLORIDE 0.9% 1,000 ML in EMPTY BAG 1 BAG IV ONE; +VERAPAMIL 2.5 MG/ML 2 ML AMP ONE; +VERAPAMIL SYRINGE (5 MG/10 ML) INTRAARTER ONE
[2020-03-22 06:57] LABS: Glucose,Whole Blood 115 mg/dL (75-99)
[2020-03-22 06:59] VITALS: RESP 18; TEMP 97.8
--- NOTE | 2020-03-22 08:46 | CC ---
CARDIAC CATHETERIZATION REPORT DATE OF SERVICE: 03/22/2020 PROCEDURE: Coronary angiography. PERFORMED BY: Dr. Alison Zuñiga. Moderate conscious sedation time was 14 minutes. The patient was administered Versed. Oxygen saturation, hemodynamics and EKG were monitored closely. CLINICAL INFORMATION: Mr. Ben Vega is a 79-year-old gentleman with ischemic cardiomyopathy, known RCA occlusion, previous stenting of mid LAD had moderate left main disease, but no significant disease in the circumflex system. Because of recent abnormal stress test, he was advised cardiac cath. His creatinine is 2.1. He has diabetes. He was hydrated orally, brought in for the procedure with intention of giving him no more than 50 mL of contrast. PROCEDURE NOTE: Under local anesthesia and strict aseptic precautions, a 6-Malay introducer was placed in the right radial artery. The patient had a bovine arch. I had difficulty getting into the ascending aorta. However, with a Glidewire combination, I was able to get into the ascending aorta. A 3.5 curved left Connor diagnostic catheter was used to cannulate the left main artery. Multiple injections were performed. The patient has a small diagonal that has disease which has progressed, but the LAD itself at the site of stenting is widely patent. Circumflex has no significant disease. RCA is being filled by collaterals from the left to the right. I did not do any further injections. RCA is a known occlusion. LV pressures were not checked. The sheath was taken out and TR band applied as per protocol. Good hemostasis was secured. Patient received 2000 units of heparin. His saturation of the fingers of the right hand was 98%. Results were discussed with the patient and . We will continue medical therapy, hydrate him and resume his Lasix tomorrow. Patient to be discharged today and I will see him in the office next week. Findings: RCA known to be totally occluded, has L to R Collaterals Left Main: 30% diffuse disease LAD : Widely patent mid LAD at site of Stenting. Small 2nd Diag has 90% stenosis. LCX : Non dom 40% mid lesion. Advised Med Rx. Spoke Pt and . Home today. MMODL / IJN: [id number] / MTDD
[2020-03-22 15:03] VITALS: BP 166/84; PULSE 56
== END ==
LOC: CATHCVL 06:08
PROVIDERS: ATTEND Internal Medicine Interventional Cardiology
DX: I25.110 Atherosclerotic heart disease of native coronary artery with unstable angina pectoris (principal); I25.82 Chronic total occlusion of coronary artery; Q25.49 Other congenital malformations of aorta; R94.39 Abnormal result of other cardiovascular function study; I25.5 Ischemic cardiomyopathy; R07.89 Other chest pain; R06.02 Shortness of breath; E11.9 Type 2 diabetes mellitus without complications; E78.5 Hyperlipidemia, unspecified; I11.0 Hypertensive heart disease with heart failure; I50.9 Heart failure, unspecified; E66.9 Obesity, unspecified; R27.0 Ataxia, unspecified; M19.90 Unspecified osteoarthritis, unspecified site; E78.00 Pure hypercholesterolemia, unspecified; Z95.5 Presence of coronary angioplasty implant and graft; Z95.810 Presence of automatic (implantable) cardiac defibrillator; Z72.0 Tobacco use; Z79.899 Other long term (current) drug therapy; Z79.01 Long term (current) use of anticoagulants; Z79.84 Long term (current) use of oral hypoglycemic drugs; Z88.0 Allergy status to penicillin; Z88.5 Allergy status to narcotic agent; Z86.711 Personal history of pulmonary embolism; Z68.33 Body mass index [BMI] 33.0-33.9, adult
CPT/HCPCS: 93454; C1769; C1894; J2250; J2001; J1644; Q9967

== ENCOUNTER → 2020-03-27 | Outpatient (CLI) | payer MEDICARE, BC ==
[2020-03-27 15:37] LABS: African American GFR (CKD) 36.2 (60.0-200.0); Anion Gap 6.8 mmol/L (4.00-12.00); BUN/Creat Ratio 16.5 Ratio (12.00-20.00); Calcium 9.4 mg/dL (8.7-10.3); Carbon Dioxide 31.2 mmol/L (21.6-31.8); Magnesium 2.1 mg/dL (1.5-2.4); Non-African American GFR(CKD) 31.3 (60.0-200.0); Potassium 4.5 mmol/L (3.5-5.5)
== END | disposition home or self-care (01) ==
LOC: LABWHC1 09:47
PROVIDERS: ATTEND Nurse Practitioner
DX: I25.10 Atherosclerotic heart disease of native coronary artery without angina pectoris (principal)
CPT/HCPCS: 36415; 80048; 83735

== ENCOUNTER → 2020-04-10 | Outpatient (CLI) | payer MEDICARE, BC | END | disposition home or self-care (01) | LOC: LABWHC1 09:14 | PROVIDERS: ATTEND Urology | DX: C61 Malignant neoplasm of prostate (principal) | CPT/HCPCS: 36415; 84153 ==

== ENCOUNTER → 2020-04-14 | Outpatient (CLI) | payer MEDICARE, BC ==
[2020-04-14 22:47] LABS: Basophils # (A) 0.07 X 10*3/uL (0.00-0.10); Basophils % (A) 0.9 %; Eosinophils # (A) 0.36 X 10*3/uL (0.04-0.35); Eosinophils % (A) 4.4 %; HCT 40.4 % (39.6-50.0); HGB 12.5 g/dL (13.0-17.0); Lymphocytes # (A) 2.15 X 10*3/uL (0.90-5.00); Lymphocytes % (A) 26.4 %; MCH 28.2 pg (27.0-32.0); MCHC 30.9 g/dL (32.0-37.0); MCV 91.2 fL (80.0-97.0); Mean Platelet Volume 11.1 fL (9.5-12.2); Monocytes % (A) 11.1 %; Neutrophils # (A) 4.63 X 10*3/uL (1.80-7.70); Neutrophils % (A) 56.8 %; Platelet Count 186 X 10*3/uL (140-440); RBC 4.43 X 10*6/uL (4.40-5.60); RDW 15.7 % (11.5-14.5); WBC 8.14 X 10*3/uL (4.50-10.00)
[2020-04-15 03:31] LABS: Anion Gap 13.2 mmol/L (4.00-12.00); Carbon Dioxide 24.8 mmol/L (21.6-31.8); Potassium 4.8 mmol/L (3.5-5.5)
== END | disposition home or self-care (01) ==
LOC: LABWHC1 16:07
PROVIDERS: ATTEND Orthopaedic Surgery
DX: Z01.818 Encounter for other preprocedural examination (principal); M23.92 Unspecified internal derangement of left knee
CPT/HCPCS: 36415; 80051; 85025

== ENCOUNTER 2020-04-21 07:33 | Day surgery (SDC) | payer MEDICARE, BC ==
--- NOTE | 2020-04-20 09:02 | HP ---
HISTORY AND PHYSICAL CHIEF COMPLAINT: Left knee pain. HISTORY OF PRESENT ILLNESS: The patient is a 80-year-old retired gentleman who presents with progressive left knee pain for the past several months. He thinks he may have twisted it. He continues to have medial pain along with intermittent giving way. It bothers him daily. He notes swelling as well. He rates his pain 8/10. He had a previous injection with partial temporary relief. He does use a cane because of the knee. PAST MEDICAL HISTORY: Significant for type 2 diabetes, hypertension, and heart disease. PAST SURGICAL HISTORY: Significant for hernia repair, spinal surgery in addition to pacemaker/defibrillator placement. CURRENT MEDICATIONS: 1. Atorvastatin. 2. Eliquis. 3. Lasix. 4. Gabapentin. 5. Losartan. 6. Tramadol. ALLERGIES: He has allergies to VICODIN and AMOXICILLIN. FAMILY HISTORY: Negative. SOCIAL HISTORY: Negative for current tobacco or alcohol use. REVIEW OF SYSTEMS: Sixteen-point review of systems otherwise reviewed and is noncontributory. PHYSICAL EXAMINATION: On examination, the patient is approximately 5 feet 10 inches, 230 pounds of endomorphic habitus. HEENT exam is nonfocal. Neck is supple. He has painless passive motion of his left hip. Straight leg raise is negative. Active motion left knee -10 to 100 degrees of flexion. He has mild effusion. He is tender about the medial joint line. Collaterals are stable, Zaki is negative, Godwin's elicits medial pain. His distal neurovascular exam appears intact in the left lower extremity. He does walk with an antalgic gait. IMPRESSION: 1. Left knee internal derangement with symptomatic medial meniscal tear. 2. History of heart disease on anticoagulation. RECOMMENDATIONS: I talked to the patient at length regarding his condition and treatment options. At this point, he is unable to obtain an MRI because of his pacemaker/defibrillator. He was cleared by Cardiology and has been off his Eliquis prior to the procedure. Risks and benefits were discussed at length in layman's terms. We will likely perform that as an outpatient procedure. We will likely restart his Eliquis directly after the procedure. MMODL / IJN: [id number] /
[2020-04-20 09:43] VITALS: BMI 33.0
[~2020-04-21 07:33] MED LIST changes: -ALPRAZolam 0.25 MG TAB PO PRN; -ALPRAZolam 0.5 MG TAB PO PRN; -ASPIRIN 325 MG TAB PO STA; -ATORVASTATIN 80 MG TAB PO STA; +DEXAMETHASONE SOD PHOSPHATE 4 MG/ML 1 ML VIAL IV ONE; -HEPARIN SODIUM 1,000 UN/ML (10ML VL) IV ONE; -HEPARIN SODIUM 1,000 UN/ML (10ML VL) ONE; -HEPARIN SODIUM,PORCINE 10,000 UNIT in SODIUM CHLORIDE 0.9% 1,000 ML IRRIGATION PRN; -HEPARIN SODIUM,PORCINE 2,500 UNIT in SODIUM CHLORIDE 0.9% 250 ML IRRIGATION PRN; -IOPAMIDOL-370 100ML BTL INJ ONE; +LACTATED RINGERS 1,000 ML IV SCH; +LIDOCAINE 1% (10MG/ML) FOR IV START INTRADERMA PRN; -LIDOCAINE 1% INJ 10MG/ML (20 ML MDV) ONE; -LIDOCAINE 1% INJ 10MG/ML (20 ML MDV) SQ ONE; -MIDAZOLAM 2 MG/2 ML VIAL IV ONE; -NITROGLYCERIN SL TABS 0.4 MG TAB SUBLINGUAL PRN; -SODIUM CHLORIDE 0.9% 1,000 ML IV SCH; -SODIUM CHLORIDE 0.9% 1,000 ML in EMPTY BAG 1 BAG IV ONE; -VERAPAMIL 2.5 MG/ML 2 ML AMP ONE; -VERAPAMIL SYRINGE (5 MG/10 ML) INTRAARTER ONE
[2020-04-21 08:32] VITALS: RESP 16
[2020-04-21 08:46] LABS: Glucose,Whole Blood 117 mg/dL (75-99)
[2020-04-21] MEDS: ONDANSETRON 4 MG/2 ML VIAL IVP ONE ×2 (08:49→09:55)
[2020-04-21] MEDS ORDERED: LIDOCAINE 1% (10MG/ML) FOR IV START INTRADERMA ONE (08:49)
[2020-04-21] MEDS ORDERED: PROPOFOL 10 MG/ML 20 ML VIAL IV ONE (08:53)
[2020-04-21] MEDS ORDERED: fentaNYL (PF) 50 MCG/ML 2 ML AMP ONE (08:53)
[2020-04-21] MEDS ORDERED: LIDOCAINE 1% INJ 10MG/ML (20 ML MDV) ONE (08:53)
[2020-04-21] MEDS ORDERED: SUCCINYLCHOLINE CHLORIDE 100 MG/5 ML SYR IV ONE (08:53)
[2020-04-21] MEDS ORDERED: PHENYLEPHRINE-0.9% NACL SYG 1,000 MCG/10 ML SYRINGE ONE (08:53)
[2020-04-21 08:57] LABS: Anisocytosis Slight; HCT 39.4 % (39.0-53.0); HGB 12.8 gm/dL (13.0-17.5); MCH 28.6 pg (25.0-35.0); MCHC 32.6 g/dL (31.0-37.0); MCV 87.8 fL (80.0-100.0); Platelet Count 172 k/uL (150-450); RBC 4.48 m/uL (4.30-5.90); RDW 16.1 % (11.5-15.5); WBC 8.4 k/uL (3.8-10.6)
[2020-04-21] MEDS ORDERED: EPINEPHrine (PF) 1 ML in SODIUM CHLORIDE 0.9% IRRIGATIO 3,000 ML IRRIGATION ONE ×2 (09:18→09:19)
--- NOTE | 2020-04-21 09:37 | P.OP ---
Date of Procedure: 04/21/20 Preoperative Diagnosis: Left knee internal derangement Postoperative Diagnosis: Left knee posterior medial meniscal tear/middle one third lateral meniscal tear Procedure(s) Performed: Left knee arthroscopic partial medial meniscectomy/partial lateral meniscectomy Anesthesia: MALIK Surgeon: Ayden Mcghee Estimated Blood Loss (ml): 10 Pathology: none sent Condition: stable Disposition: PACU Indications for Procedure: The patient is a 80-year-old male who presents with progressive left knee pain and mechanical symptoms despite conservative measures. A discussion of the risks and benefits of operative intervention versus continued conservative measures was made with the patient. He opted to proceed with surgery. Operative risks to include infection, neurovascular injury, development of blood clots, possible incomplete resolution of symptoms, possible worsening symptoms and need for subsequent procedures was discussed. Informed consent was obtained. Operative Findings: As below Description of Procedure: The patient was brought to the operating room, and after induction of general anesthesia examined the left knee. Collaterals were stable, Zaki was negative, and posterior drawer was negative. The left lower extremity was prepped and draped in a normal fashion. A superior lateral portal was made through a 3 mm skin incision superior and lateral to the patella. This was used for outflow. A lateral portal was made through a 5 mm vertical skin incision lateral to the patella tendon above the joint line. Diagnostic arthroscopy was performed. On inspection of the medial compartment, and oblique tear involving the posterior most aspect of the medial meniscus was noted in the white-white junction. This was debrided back to stable base with straight baskets and a motorized shaver. Grade 2/3 chondral changes were noted involving the distal medial femoral condyle. On inspection of the notch, the anterior cruciate ligament appeared to be intact. On inspection of the lateral compartment, a radial tear involving the middle one third the lateral meniscus was noted in the white-white junction. This was debrided back to stable base with straight baskets and a motorized shaver. The remaining lateral meniscus was stable and intact. On inspection of the patellofemoral articulation there was some chondral fibrillation however no loose chondral fragments. The gutters were clear debris. The knee was then thoroughly irrigated. The portals were closed with Steri-Strips. A sterile dressing was applied in addition to a compression stocking. The patient was awoken from general anesthesia and transferred to recovery room in good condition. Blood loss was estimated at 10 mL. No complications were incurred.
[2020-04-21 09:42] VITALS: TEMP 97.8
[2020-04-21 09:46] LABS: Glucose,Whole Blood 127 mg/dL (75-99)
[2020-04-21] MEDS: HYDROmorphone 0.5 MG/0.5 ML SYRINGE IVP PRN ×2 (09:55→10:06)
[2020-04-21] MEDS ORDERED: HYDROcodone/APAP 5-325MG 1 EACH TAB ONE (10:53)
[2020-04-21] MEDS ORDERED: HYDROcodone/APAP 5-325MG 1 EACH TAB PO ONE (10:55)
[2020-04-21 11:13] VITALS: BP 167/94; PULSE 75
== END 2020-04-21 11:44 | disposition home or self-care (01) ==
LOC: OR 07:33
PROVIDERS: ATTEND Orthopaedic Surgery
DX: S83.242A Other tear of medial meniscus, current injury, left knee, initial encounter (principal); S83.282A Other tear of lateral meniscus, current injury, left knee, initial encounter; M94.8X6 Other specified disorders of cartilage, lower leg; E11.9 Type 2 diabetes mellitus without complications; I11.9 Hypertensive heart disease without heart failure; I25.119 Atherosclerotic heart disease of native coronary artery with unspecified angina pectoris; I25.2 Old myocardial infarction; J44.9 Chronic obstructive pulmonary disease, unspecified; H40.9 Unspecified glaucoma; Z98.890 Other specified postprocedural states; Z95.810 Presence of automatic (implantable) cardiac defibrillator; Z79.899 Other long term (current) drug therapy; Z79.01 Long term (current) use of anticoagulants; Z79.891 Long term (current) use of opiate analgesic; Z88.5 Allergy status to narcotic agent; Z88.0 Allergy status to penicillin; Z88.8 Allergy status to other drugs, medicaments and biological substances; Z97.2 Presence of dental prosthetic device (complete) (partial); Z86.711 Personal history of pulmonary embolism; X58.XXXA Exposure to other specified factors, initial encounter
CPT/HCPCS: 84132; 85027; 29880; J1100; J0690; J2405; J0171; J2001; J3010; J2370; J0330; J2704; J1170

== ENCOUNTER 2020-05-03 10:56 | Observation (INO) | payer MEDICARE, BC ==
--- NOTE | 2020-05-03 11:56 | XR ---
EXAMINATION TYPE: XR chest 2V DATE OF EXAM: 05/03/2020 COMPARISON: 01/12/2020 HISTORY: 80-year-old male shortness of breath, difficulty breathing TECHNIQUE: AP and lateral views FINDINGS: Left anterior chest wall AICD generator with right atrial and right ventricular leads. Heart remains borderline enlarged. Mild diffuse interstitial prominence is unchanged. Hazy bilateral lung densities related to overlying soft tissue. No shine consolidation or pleural effusion. IMPRESSION: Borderline cardiomegaly and chronic appearing changes. Correlate to exclude a component of mild pulmo nary vascular congestion. Otherwise, no acute process seen.
[2020-05-03 12:03] LABS: Anisocytosis Slight; Basophils % (A) 1 %; Eosinophils # (A) 0.2 k/uL (0-0.7); Eosinophils % (A) 3 %; HGB 13.4 gm/dL (13.0-17.5); Lymphocytes # (A) 1.2 k/uL (1.0-4.8); Lymphocytes % (A) 14 %; MCH 28.2 pg (25.0-35.0); MCHC 32.6 g/dL (31.0-37.0); MCV 86.4 fL (80.0-100.0); Mean Platelet Volume 7.8; Monocytes # (A) 0.6 k/uL (0-1.0); Monocytes % (A) 7 %; Neutrophils # (A) 6.2 k/uL (1.3-7.7); Neutrophils % (A) 75 %; Platelet Count 189 k/uL (150-450); RBC 4.74 m/uL (4.30-5.90); RDW 16.3 % (11.5-15.5); WBC 8.3 k/uL (3.8-10.6)
[2020-05-03 12:13] LABS: Partial Thromboplastin Time 25.1 sec (22.0-30.0); Prothrombin Time 11.1 sec (9.0-12.0)
[2020-05-03 12:15] LABS: Calcium 9.4 mg/dL (8.4-10.2); Magnesium 2.2 mg/dL (1.6-2.3); Potassium 4.3 mmol/L (3.5-5.1); Total Bilirubin 0.7 mg/dL (0.2-1.3); Total Protein 7.5 g/dL (6.3-8.2)
[2020-05-03] MEDS ORDERED: IPRATROPIUM-ALBUTEROL 3 ML NEB INHALATION STA (12:42)
--- NOTE | 2020-05-03 13:08 | ED ---
SOB HPI - General Chief Complaint: Shortness of Breath Stated Complaint: SOB Time Seen by Provider: 05/03/20 11:02 Source: patient Mode of arrival: wheelchair Limitations: no limitations - History of Present Illness Initial Comments: 80-year-old male with extensive PMH presenting today for chief complaint of dyspnea. Patient did smoke about 1 AM stating is very short of breath. Patient states that he recently had some increased leg swelling bilaterally and was taking 20mg extra of lasix daily. patient states that three weeks ago he was taken off his eliquis for 1 week for a knee procedure, and was then placed back on the eliquis for the past 2 weeks. Patient denies pain with a deep breath, he admits to some occasional chest pressure. Denies currently, states the dyspnea is still present. pt concerned because last time he was taken off his eliquis for a week for a procedure he developed a pulmonary embolism. Patient denies cough, fever, difficulty lying flat, nausea, vomiting, back or abdominal pain - Related Data Home Medications Medication Instructions Recorded Confirmed Latanoprost [Xalatan 0.005%] 1 drop BOTH EYES HS 10/18/16 04/21/20 Atorvastatin [Lipitor] 40 mg PO HS 01/07/17 04/21/20 Losartan [Cozaar] 50 mg PO DAILY 03/22/19 04/21/20 Dorzolamide/Timolol/Pf 1 drop BOTH EYES HS 01/10/20 04/21/20 [Dorzolamide 2%-Timolol 0.5%] Gabapentin [Neurontin] 300 mg PO BID 01/10/20 04/21/20 carvediloL [Coreg] 6.25 mg PO BID 01/10/20 04/21/20 Acetaminophen [Tylenol Arthritis] 650 mg PO BID 03/20/20 04/21/20 Apixaban [Eliquis] 5 mg PO BID 03/20/20 04/21/20 Furosemide [Lasix] 40 mg PO BID 03/20/20 04/21/20 Glimepiride [Amaryl] 1 mg PO AC-SUPPER 03/20/20 04/21/20 traMADol HCL 50 mg PO BID PRN 03/20/20 04/21/20 calcium polycarbophiL [Fibercon] 625 mg PO BID 04/20/20 04/21/20 Previous Rx's Medication Instructions Recorded HYDROcodone/APAP 5-325MG [[place] 1 tab PO Q6HR PRN 3 Days #12 tab 04/21/20 5-325] Allergies Allergy/AdvReac Type Severity Reaction Status Date / Time amoxicillin Allergy Severe Unknown- Verified 05/03/20 10:57 was hospitalized spironolactone Allergy Unknown Verified 05/03/20 10:57 hydrocodone bitartrate AdvReac Confusion Verified 05/03/20 10:57 [From Vicodin] Review of Systems ROS Statement: Those systems with pertinent positive or pertinent negative responses have been documented in the HPI. ROS Other: All systems not noted in ROS Statement are negative. Past Medical History Past Medical History: Coronary Artery Disease (CAD), Cancer, Chest Pain / Angina, Heart Failure, COPD, Diabetes Mellitus, Eye Disorder, Hyperlipidemia, Hypertension, Myocardial Infarction (MO), Osteoarthritis (OA), Pneumonia, Prostate Disorder, Pulmonary Embolus (PE), Renal Disease Additional Past Medical History / Comment(s): Chronic Kidney Disease, right eye Glaucoma, hx prostate cancer with surgery, chronic neck, bilateral shoulder and back pain, hx Gout, fatty tumor on right back, gallstones. MO's in 1980 and 2017. Last Myocardial Infarction Date:: 10/18/16 History of Any Multi-Drug Resistant Organisms: None Reported Past Surgical History: AICD, Back Surgery, Heart Catheterization, Heart Catheterization With Stent, Hernia Repair, Pacemaker, Prostate Surgery Additional Past Surgical History / Comment(s): CARDIOVERSION, lumbar surgery X2, cervical epidural injections, bilateral inguinal hernia repairs, TURP, colonoscopy, bilateral cataract removals., Heart Cath 03/22/20 Past Anesthesia/Blood Transfusion Reactions: No Reported Reaction Date of Last Stent Placement:: 10/18/16 Type of Cardiac Device: AICD Device Placement Date:: 01-10-17 Past Psychological History: No Psychological Hx Reported Smoking Status: Former smoker Past Alcohol Use History: None Reported Past Drug Use History: None Reported - Past Family History Mother Family Medical History: Unable to Obtain Additional Family Medical History / Comment(s): Mother of unknown cause. Father Family Medical History: Unable to Obtain Additional Family Medical History / Comment(s): Father of unknown cause. General Exam - General Exam Comments Initial Comments: General: The patient is awake and alert, in no distress Eye: +3 mm pupils are equal, round and reactive to light, extra-ocular movements are intact. No nystagmus. There is normal conjunctiva bilaterally. No signs of icterus. Ears, nose, mouth and throat: There are moist mucous membranes and no oral lesions. Neck: The neck is supple, there is no tenderness or JVD. Cardiovascular: There is a regular rate and rhythm. No murmur, rub or gallop is appreciated. Respiratory: Respirations are mildly-labored, somewhat diminished, breath sounds are equal. No wheezes, stridor, rales, or rhonchi. Gastrointestinal: Soft, non-distended, non-tender abdomen without masses or organomegaly noted. There is no rebound or guarding present. Musculoskeletal: Normal ROM, no tenderness. Strength 5/5. Sensation intact. Radial and DP pulses equal bilaterally 2+. Neurological: A&O x 3. CN II-XII intact grossly, There are no obvious motor or sensory deficits. Coordination appears grossly intact. Speech is normal. Skin: Skin is warm and dry and no rashes or lesions are noted. No calf swelling, no calf pain to palpation. Psychiatric: Cooperative, appropriate mood & affect, normal judgment. Limitations: no limitations Course Vital Signs 05/03/20 05/03/20 10:57 11:50 Temperature 98.7 F Pulse Rate 82 71 Respiratory 18 22 Rate Blood Pressure 173/97 133/82 O2 Sat by Pulse 96 98 Oximetry Medical Decision Making - Medical Decision Making Patient presenting for dyspnea since 1 AM. Hx of DVT/MO/HLD/HTN/HLD/CKD presenting for cc of dyspnea with chest heaviness. on eliquis. off for 1 week 2 weeks ago. last time this happened patient had a PE from discontinuation temporarily. Patient denies current chest pain. Admits to dyspnea.Lung exam overall is relatively clear. no sounds of obvious COPD exacerbation. Given recent surgery/hx/hx of CKD patient will have VQ scan and be admitted for chest pain r/o. Patient agreeable to this care plan and admission. Dr Byers spoke with sound physician and is watching VQ scan at shift change. - Lab Data Result diagrams: 05/03/20 11:32 05/03/20 11:32 Lab Results 05/03/20 05/03/20 05/03/20 Range/Units 11:32 11:32 11:32 WBC 8.3 (3.8-10.6) k/uL RBC 4.74 (4.30-5.90) m/uL Hgb 13.4 (13.0-17.5) gm/dL Hct 41.0 (39.0-53.0) % MCV 86.4 (80.0-100.0) fL MCH 28.2 (25.0-35.0) pg MCHC 32.6 (31.0-37.0) g/dL RDW 16.3 H (11.5-15.5) % Plt Count 189 (150-450) k/uL MPV 7.8 Neutrophils % 75 % Lymphocytes % 14 % Monocytes % 7 % Eosinophils % 3 % Basophils % 1 % Neutrophils # 6.2 (1.3-7.7) k/uL Lymphocytes # 1.2 (1.0-4.8) k/uL Monocytes # 0.6 (0-1.0) k/uL Eosinophils # 0.2 (0-0.7) k/uL Basophils # 0.0 (0-0.2) k/uL Anisocytosis Slight PT 11.1 (9.0-12.0) sec INR 1.0 (<1.2) APTT 25.1 (22.0-30.0) sec Sodium 141 (137-145) mmol/L Potassium 4.3 (3.5-5.1) mmol/L Chloride 104 (98-107) mmol/L Carbon Dioxide 26 (22-30) mmol/L Anion Gap 11 mmol/L BUN 32 H (9-20) mg/dL Creatinine 2.05 H (0.66-1.25) mg/dL Est GFR (CKD-EPI)AfAm 35 (>60 ml/min/1.73 sqM) Est GFR (CKD-EPI)NonAf 30 (>60 ml/min/1.73 sqM) Glucose 90 (74-99) mg/dL Plasma Lactic Acid Ozzy (0.7-2.0) mmol/L Calcium 9.4 (8.4-10.2) mg/dL Magnesium 2.2 (1.6-2.3) mg/dL Total Bilirubin 0.7 (0.2-1.3) mg/dL AST 28 (17-59) U/L ALT 28 (4-49) U/L Alkaline Phosphatase 110 (38-126) U/L Troponin I (0.000-0.034) ng/mL NT-Pro-B Natriuret Pep pg/mL Total Protein 7.5 (6.3-8.2) g/dL Albumin 4.0 (3.5-5.0) g/dL Coronavirus (PCR) (Not Detectd) 05/03/20 05/03/20 05/03/20 Range/Units 11:32 11:32 11:32 WBC (3.8-10.6) k/uL RBC (4.30-5.90) m/uL Hgb (13.0-17.5) gm/dL Hct (39.0-53.0) % MCV (80.0-100.0) fL MCH (25.0-35.0) pg MCHC (31.0-37.0) g/dL RDW (11.5-15.5) % Plt Count (150-450) k/uL MPV Neutrophils % % Lymphocytes % % Monocytes % % Eosinophils % % Basophils % % Neutrophils # (1.3-7.7) k/uL Lymphocytes # (1.0-4.8) k/uL Monocytes # (0-1.0) k/uL Eosinophils # (0-0.7) k/uL Basophils # (0-0.2) k/uL Anisocytosis PT (9.0-12.0) sec INR (<1.2) APTT (22.0-30.0) sec Sodium (137-145) mmol/L Potassium (3.5-5.1) mmol/L Chloride (98-107) mmol/L Carbon Dioxide (22-30) mmol/L Anion Gap mmol/L BUN (9-20) mg/dL Creatinine (0.66-1.25) mg/dL Est GFR (CKD-EPI)AfAm (>60 ml/min/1.73 sqM) Est GFR (CKD-EPI)NonAf (>60 ml/min/1.73 sqM) Glucose (74-99) mg/dL Plasma Lactic Acid Ozzy 1.4 (0.7-2.0) mmol/L Calcium (8.4-10.2) mg/dL Magnesium (1.6-2.3) mg/dL Total Bilirubin (0.2-1.3) mg/dL AST (17-59) U/L ALT (4-49) U/L Alkaline Phosphatase (38-126) U/L Troponin I <0.012 (0.000-0.034) ng/mL NT-Pro-B Natriuret Pep 1210 pg/mL Total Protein (6.3-8.2) g/dL Albumin (3.5-5.0) g/dL Coronavirus (PCR) (Not Detectd) 05/03/20 Range/Units 11:45 WBC (3.8-10.6) k/uL RBC (4.30-5.90) m/uL Hgb (13.0-17.5) gm/dL Hct (39.0-53.0) % MCV (80.0-100.0) fL MCH (25.0-35.0) pg MCHC (31.0-37.0) g/dL RDW (11.5-15.5) % Plt Count (150-450) k/uL MPV Neutrophils % % Lymphocytes % % Monocytes % % Eosinophils % % Basophils % % Neutrophils # (1.3-7.7) k/uL Lymphocytes # (1.0-4.8) k/uL Monocytes # (0-1.0) k/uL Eosinophils # (0-0.7) k/uL Basophils # (0-0.2) k/uL Anisocytosis PT (9.0-12.0) sec INR (<1.2) APTT (22.0-30.0) sec Sodium (137-145) mmol/L Potassium (3.5-5.1) mmol/L Chloride (98-107) mmol/L Carbon Dioxide (22-30) mmol/L Anion Gap mmol/L BUN (9-20) mg/dL Creatinine (0.66-1.25) mg/dL Est GFR (CKD-EPI)AfAm (>60 ml/min/1.73 sqM) Est GFR (CKD-EPI)NonAf (>60 ml/min/1.73 sqM) Glucose (74-99) mg/dL Plasma Lactic Acid Ozzy (0.7-2.0) mmol/L Calcium (8.4-10.2) mg/dL Magnesium (1.6-2.3) mg/dL Total Bilirubin (0.2-1.3) mg/dL AST (17-59) U/L ALT (4-49) U/L Alkaline Phosphatase (38-126) U/L Troponin I (0.000-0.034) ng/mL NT-Pro-B Natriuret Pep pg/mL Total Protein (6.3-8.2) g/dL Albumin (3.5-5.0) g/dL Coronavirus (PCR) Not Detected (Not Detectd) Disposition Clinical Impression: Dyspnea, Chest heaviness Disposition: ADMITTED IP TO THIS HOSP Condition: Stable Is patient prescribed a controlled substance at d/c from ED?: No Referrals: Beltran Castillo MD [Primary Care Provider] - 1-2 days Time of Disposition: 14:21 Decision to Admit Reason: Admit from EC Decision Date: 05/03/20 Decision Time: 14:21
[2020-05-03] MEDS ORDERED: ASPIRIN 81 MG PO STA (14:16)
[2020-05-03] MEDS ORDERED: NALOXONE 0.4 MG/ML 1 ML VIAL IV PRN (14:22)
--- NOTE | 2020-05-03 14:49 | NM ---
There EXAMINATION TYPE: NM pul vent and perfuse DATE OF EXAM: 05/03/2020 COMPARISON: Prior 03/22/2019 and radiograph same day HISTORY: 80-year-old male shortness of breath, assess for PE TECHNIQUE: Utilizing inhalation of 37.3 mCi Tc 99m DTPA aerosol and intravenous injection of 5.2 mCi of Tc 99m MAA, ventilation and perfusion images with a colon NO patella that we'll have to make arra ngements for this site and there is a very diffuse and pulmonary acquired post injection in multiple projections. FINDINGS: There is no mismatched perfusion defect. Ventilation appears normal. IMPRESSION: Very low probability for pulmonary embolus.
[2020-05-03] MEDS ORDERED: MELATONIN 3 MG TABLET PO PRN (16:17)
[2020-05-03] MEDS ORDERED: ACETAMINOPHEN TAB 325 MG TAB PO PRN (16:17)
--- NOTE | 2020-05-03 16:22 | P.HPIM ---
History of Present Illness H&P Date: 05/03/20 Chief Complaint: Shortness of breath Patient is a 80-year-old male for history of coronary artery disease, prostate cancer, diabetes, congestive heart failure, hypertension, dyslipidemia, and multiple other comorbid conditions who presented to the ER at the direction of his physician secondary to shortness of breath. In the ER he underwent an extensive evaluation. He was initially 96% on room air with a blood pressure 173/97. Initial laboratory analysis showed a creatinine 2.05 which is his baseline,COVID was negative, BNP 1210, troponin was negative. Chest x-ray demonstrated mild pulmonary vascular congestion with cardiomegaly. He had been taken off of his Eliquis for 1 week approximately 3 weeks ago and subsequently underwent a VQ scan which showed low probability of acute pulmonary embolism. He was subsequently diagnosed with acute exacerbation of congestive heart failure and started on Lasix. He was admitted as observation for further monito ring. Patient seen and examined at bedside. He reports that 2 days ago he was having some lower abdominal pain associated with nausea that waxed and waned for 2 days. Was not associated with chest pain, diarrhea was associated with some constipation. Yesterday he awoke in the middle the night feeling short of breath. He struggled for approximately 6 hours and was unable to catch his breath. He then contacted Dr. Castillo who directed him to the ER. He reports increased lower extremity edema for the last week and has been taking an extra dose of Lasix. He denies any overt chest pain, palpitations, lightheadedness, dizziness, numbness and tingling down his arms or up into his jaw. He denies any recent cough, cold, fever, flu. 3 weeks ago he had a meniscal repair on his left knee. He reports chronic back pain that is worse with ambulation and better with rest, decreased exercise tolerance. He has been needing to use a cane due to his weakness. Review of Systems Pertinent positives and negatives as discussed in HPI, a complete review of systems was performed and all other systems are negative. Past Medical History Past Medical History: Coronary Artery Disease (CAD), Cancer, Chest Pain / Angina, Heart Failure, Diabetes Mellitus, Eye Disorder, Hyperlipidemia, Hypertension, Myocardial Infarction ([place]), Osteoarthritis (OA), Pneumonia, Prostate Disorder, Pulmonary Embolus (PE), Renal Disease Additional Past Medical History / Comment(s): MIs in 1981 and 2017, prostate cancer with surgery, cardiomyopathy, L lung PE, NIDDM type II, neuropathy bilateral feet/toes, CKD stage III-IV, chronic neck/bilateral shoulder/back and feet pain, fatty tumor R back, gallstones, diverticular disease, gout, glaucoma R eye Last Myocardial Infarction Date:: 2016 History of Any Multi-Drug Resistant Organisms: None Reported Past Surgical History: AICD, Back Surgery, Heart Catheterization, Heart Catheter ization With Stent, Hernia Repair, Pacemaker, Prostate Surgery Additional Past Surgical History / Comment(s): Cardioversion, AICD/pacer, lumbar spine surgery x2, epidural injections to lumbar spine, TURP, bilateral inguinal hernia repairs, urethral polyps removed, colonoscopy, bilateral cataract remoals, L knee arthroscopy with partial menisectomy, R eye surgery for glaucoma. Past Anesthesia/Blood Transfusion Reactions: No Reported Reaction Date of Last Stent Placement:: 2016 Type of Cardiac Device: Permanent Pacemaker, AICD Device Placement Date:: 2016 Smoking Status: Former smoker - Past Family History Mother Family Medical History: Unable to Obtain Additional Family Medical History / Comment(s): Mother of unknown cause. Father Family Medical History: Unable to Obtain Additional Family Medical History / Comment(s): Father of unknown cause. Medications and Allergies Home Medications Medication Instructions Recorded Confirmed Type Latanoprost [Xalatan 0.005%] 1 drop BOTH EYES HS 10/18/16 05/03/20 History Atorvastatin [Lipitor] 40 mg PO W/SUPPER 01/07/17 05/03/20 History Losartan [Cozaar] 50 mg PO W/SUPPER 03/22/19 05/03/20 History Dorzolamide/Timolol/Pf 1 drop BOTH EYES HS 01/10/20 05/03/20 History [Dorzolamide 2%-Timolol 0.5%] Gabapentin [Neurontin] 300 mg PO BID@0800,1700 01/10/20 05/03/20 History carvediloL [Coreg] 6.25 mg PO BID@0800,1700 01/10/20 05/03/20 History Acetaminophen [Tylenol Arthritis] 650 mg PO BID@0800,1700 03/20/20 05/03/20 History Apixaban [Eliquis] 5 mg PO BID@0800,1700 03/20/20 05/03/20 History Furosemide [Lasix] 40 mg PO BID@0800,1700 03/20/20 05/03/20 History Glimepiride [Amaryl] 1 mg PO W/SUPPER 03/20/20 05/03/20 History traMADol HCL 50 mg PO BID@0800,1700 03/20/20 05/03/20 History calcium polycarbophiL [Fibercon] 625 mg PO BID@0800,1700 04/20/20 05/03/20 Histo ry Allergies Allergy/AdvReac Type Severity Reaction Status Date / Time amoxicillin Allergy Severe Unknown- Verified 05/03/20 14:55 was hospitalized spironolactone Allergy Unknown Verified 05/03/20 14:55 hydrocodone bitartrate AdvReac Confusion Verified 05/03/20 14:55 [From Vicodin] Physical Exam Osteopathic Statement: *. No significant issues noted on an osteopathic structural exam other than those noted in the History and Physical/Consult. Vitals: Vital Signs Temp Pulse Pulse Resp BP BP Pulse Ox 05/03/20 15:56 98.2 F 63 20 161/91 98 05/03/20 15:27 97.7 F 65 18 143/93 99 05/03/20 14:46 66 16 05/03/20 14:35 61 16 05/03/20 11:50 71 22 133/82 98 05/03/20 10:57 98.7 F 82 18 173/97 96 Intake and Output 05/03/20 05/03/20 05/03/20 06:59 14:59 22:59 Other: Weight 104.326 kg 104.326 kg General: non toxic, no distress, appears at stated age, obese Derm: warm, dry Head: atraumatic, normocephalic, symmetric Eyes: EOMI, no lid lag, anicteric sclera, pupils equal round reactive to light ENT: Nose and ears atraumatic, no thrush, no pharyngeal erythema Neck: No thyromegaly, no cervical lymphadenopathy, trachea midline, supple Mouth: no lip lesion, mucus membranes moist Cardiovascular: S1S2 reg, no murmur, positive posterior tibial pulse bilateral, trace edema bilateral, capillary refill less than 2 seconds, no tenderness to palpation over chest wall Lungs: Crackles bilateral bases, no wheeze, no accessory muscle use, no conversational dyspnea Abdominal: soft, nontender to palpation, no guarding, no appreciable organomegaly, normal bowel sounds Ext: no gross muscle atrophy, muscle strength muscle strength 5 out of 5 in all 4 extremities, no contractures Neuro: CN II-XI grossly intact, light touch intact all 4 extremities, finger to nose within normal limits, Psych: Alert, oriented, appropriate affect Results CBC & Chem 7: 05/03/20 11:32 05/03/20 11:32 Labs: Abnormal Lab Results - Last 24 Hours (Table) 05/03/20 05/03/20 Range/Units 11:32 11:32 RDW 16.3 H (11.5-15.5) % BUN 32 H (9-20) mg/dL Creatinine 2.05 H (0.66-1.25) mg/dL Chest x-ray: report reviewed Thrombosis Risk Factor Assmnt - DVT/VTE Prophylaxis DVT/VTE Prophylaxis: Pharmacologic Prophylaxis ordered - Choose All That Apply Any of the Below Risk Factors Present?: Yes Each Factor Represents 1 point: Obesity (BMI >25) Other Risk Factors: Yes Each Risk Factor Represents 2 Points: Malignancy Each Risk Factor Represents 3 Points: Age 75 years or older Other congenital or acquired thrombophilia - If yes, enter type in comment: No Thrombosis Risk Factor Assessment Total Risk Factor Score: 6 Thrombosis Risk Factor Assessment Level: High Risk Assessment and Plan Assessment: Acute exacerbation of systolic congestive heart failure with ejection fraction 30-35% with AICD in place -Lasix IV push -Strict I's and O's, daily weights -Cardiology consult. Primary tax credit leasing consultant is be ready -Michael Lala -Dietitian recommendations for oral intake at home -Plan on home with home health Hypertension, urgency on arrival -Resume Dai Rodriguez -Follow blood pressures Dyslipidemia -Statin History of pulmonary embolism -Continue with Eliquis Diabetes mellitus type 2 with neuropathy -Sliding-scale insulin -Follow blood sugars -Hold Amaryl Chronic kidney disease stage 3/4 -At baseline -Follow creatinine carefully with diuresis Chronic: Myocardial infarction, coronary artery disease Osteoarthritis Prostate cancer Chronic back pain Gallstones Glaucoma Diverticulosis The patient is placed in observation with an anticipated less than 2 midnight stay for evaluation of shortness of breath. Surrogate decision-maker: CODE STATUS: Full code, no prolonged ventilation DVT prophylaxis: Eliquis Discussed with: Patient, , ED nursing Anticipated discharge date: In a.m. Anticipated discharge place: Home with home health A total of 35 minutes was spent on the care of this complex patient more than 50% of the time was spent in counseling and care coordination.
[2020-05-03 16:44] LABS: Glucose,Whole Blood 81 mg/dL (75-99)
[2020-05-03] MEDS: INSULIN ASPART (NovoLOG) 100 UNIT/ML VIAL SQ SCH (17:04)
[2020-05-03] MEDS: traMADol 50 MG TAB PO SCH (17:19)
[2020-05-03] MEDS: APIXABAN 5 MG TAB PO SCH (17:19)
[2020-05-03] MEDS: carvediloL 6.25 MG TAB PO SCH (17:19)
[2020-05-03] MEDS: ACETAMINOPHEN TAB 325 MG TAB PO SCH (17:19)
[2020-05-03] MEDS: GABAPENTIN 300 MG CAP PO SCH (17:19)
[2020-05-03] MEDS: FUROSEMIDE 10 MG/ML 4 ML VIAL IV SCH (17:20)
[2020-05-03] MEDS ORDERED: LOSARTAN 50 MG TAB PO SCH (17:30)
[2020-05-03] MEDS ORDERED: ATORVASTATIN 40 MG TAB PO SCH (17:30)
[2020-05-03 19:13] LABS: Glucose,Whole Blood 128 mg/dL (75-99)
[2020-05-03 19:19] VITALS: RESP 16
[2020-05-03] MEDS: DORZOLAMIDE-TIMOLOL 2.23%/0.68 10ML BTL BOTH EYES SCH ×2 (22:14→22:37)
[2020-05-03] MEDS: LATANOPROST 0.005% OPHTH DROPS 2.5 ML BTL BOTH EYES SCH ×2 (22:14→22:37)
[2020-05-04] MEDS: FUROSEMIDE 10 MG/ML 4 ML VIAL IV SCH ×2 (04:44→10:37)
[2020-05-04 07:05] LABS: Glucose,Whole Blood 109 mg/dL (75-99)
[2020-05-04] MEDS: carvediloL 6.25 MG TAB PO SCH (08:20)
[2020-05-04] MEDS: INSULIN ASPART (NovoLOG) 100 UNIT/ML VIAL SQ SCH (08:20)
[2020-05-04] MEDS: ACETAMINOPHEN TAB 325 MG TAB PO SCH (08:20)
[2020-05-04] MEDS: traMADol 50 MG TAB PO SCH (08:21)
[2020-05-04] MEDS: GABAPENTIN 300 MG CAP PO SCH (08:21)
[2020-05-04] MEDS: APIXABAN 5 MG TAB PO SCH (08:21)
[2020-05-04 08:23] VITALS: BP 136/68; PULSE 99; TEMP 98
[2020-05-04 09:15] LABS: HGB 12.9 g/dL (13.0-17.0); MCH 28.4 pg (27.0-32.0); MCHC 31.5 g/dL (32.0-37.0); MCV 90.3 fL (80.0-97.0); Mean Platelet Volume 10.8 fL (9.5-12.2); Platelet Count 156 X 10*3/uL (140-440); RBC 4.54 X 10*6/uL (4.40-5.60); RDW 15.6 % (11.5-14.5); WBC 8.66 X 10*3/uL (4.50-10.00)
[2020-05-04 09:49] LABS: Anion Gap 8.4 mmol/L (4.00-12.00); BUN/Creat Ratio 17.5 Ratio (12.00-20.00); Calcium 9.2 mg/dL (8.7-10.3); Carbon Dioxide 28.6 mmol/L (21.6-31.8); Chol/HDL Ratio 5.03; Magnesium 2.3 mg/dL (1.5-2.4); Potassium 4.4 mmol/L (3.5-5.5)
[2020-05-04 09:52] VITALS: BMI 32.7
--- NOTE | 2020-05-04 10:49 | ECHOF ---
Referral Reason:LV function, CHF MEASUREMENTS -------- HEIGHT: 152.4 cm WEIGHT: 103.4 kg BP: RVIDd: 3.4 cm (< 3.3) IVSd: 1.2 cm (0.6 - 1.1) LVIDd: 5.1 cm (3.9 - 5.3) LVPWd: 1.4 cm (0.6 - 1.1) IVSs: 1.4 cm LVIDs: 4.9 cm LVPWs: 1.9 cm LA Diam: 4.2 cm (2.7 - 3.8) Ao Diam: 3.1 cm (2.0 - 3.7) AV Cusp: 1.7 cm (1.5 - 2.6) LA Diam: 4.1 cm (2.7 - 3.8) MV EXCURSION: 21.518 mm (> 18.000) MV EF SLOPE: 47 mm/s (70 - 150) EPSS: 1.6 cm MV E Dread: 0.47 m/s MV DecT: 265 ms MV A Dread: 0.72 m/s MV E/A Ratio: 0.65 FINDINGS -------- Paced rhythm. This was a techncally difficult study with suboptimal views, , Lumason utilized for enhancement of im ages. The left ventricular size is normal. There is mild concentric left ventricular hypertrophy. There is severe global hypokinesis of LV . Overall left ventricular systolic function is severely impair ed with, an EF between 25 - 30 %. Inferior Hypokinesis The right ventricle is normal in size. The left atrium is mildly dilated. The right atrial size is normal. There is mild aortic valve sclerosis. There is no evidence of aortic regurgitation. Mild mitral annular calcification present. Mild mitral regurgitation is present. Mild tricuspid regurgitation present. Right ventricular systolic pressure is normal at < 35 mmHg. Trace/mild (physiologic) pulmonic regurgitation. The aortic root size is normal. There is no pericardial effusion. CONCLUSIONS -------- 1. Paced rhythm. 2. This was a techncally difficult study with suboptimal views, , Lumason utilized for enhancement of images. 3. The left ventricular size is normal. 4. There is mild concentric left ventricular hypertrophy. 5. There is severe global hypokinesis of LV . 6. Overall left ventricular systolic function is severely impaired with, an EF between 25 - 30 %. 7. Inferior Hypokinesis 8. The right ventricle is normal in size. 9. The left atrium is mildly dilated. 10. The right atrial size is normal. 11. There is mild aortic valve sclerosis. 12. Mild mitral annular calcification present. 13. Mild mitral regurgitation is present. 14. Mild tricuspid regurgitation present. 15. Trace/mild (physiologic) pulmonic regurgitation. 16. The aortic root size is normal. 17. There is no pericardial effusion. SWEEPER CLE[employer]ER [employer]AL: Stella Parish RDCS
--- NOTE | 2020-05-04 13:53 | P.DS ---
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 In the ER he underwent an extensive evaluation. He was initially 96% on room air with a blood pressure 173/97. Initial laboratory analysis showed a creatinine 2.05 which is his baseline,COVID was negative, BNP 1210, troponin was negative. Chest x-ray demonstrated mild pulmonary vascular congestion with cardiomegaly. He had been taken off of his Eliquis for 1 week approximately 3 weeks ago and subsequently underwent a VQ scan which showed low probability of acute pulmonary embolism. He was subsequently diagnosed with acute exacerbation of congestive heart failure and started on Lasix. He was admitted as observation for further monitoring. He was monitored overnight and had no recurrence of his shortness of breath. Seen by cardiology and cleared for discharge. He felt back to baseline. He received 1 dose of IV Lasix on day of discharge and will take one more in the evening. On the day after discharge she'll take 3 doses of 40 mg of Lasix and then resume his typical twice-daily dosing. He has been set up with home health with physical therapy and occupational therapy secondary to worsening of his chronic back pain and lower extremity weakness. He'll follow up with cardiology in 2 weeks and follow up with Dr. Lacey his PCP next week. Patient seen and examined at bedside. He denies any chest pain, shortness of breath, nausea. He states it is doing well. He feels back to baseline. Vital signs reviewed and stable. General: non toxic, no distress, appears at stated age Derm: warm, dry Head: atraumatic, normocephalic, symmetric Eyes: EOMI, no lid lag, anicteric sclera Mouth: no lip lesion, mucus membranes moist Cardiovascular: S1S2 reg, no murmur, positive posterior tibial pulse bilateral, Lungs: Faint rales right base , no accessory muscle use Abdominal: soft, nontender to palpation, no guarding, no appreciable organomegaly Ext: no gross muscle atrophy, no edema, no contractures Neuro: CN II-XI grossly intact, no focal neuro deficits Psych: Alert, oriented, appropriate affect A total of 25 minutes of time were spent preparing this complex discharge summary . Patient Condition at Discharge: Stable Plan - Discharge Summary Discharge Rx Participant: No New Discharge Prescriptions: Continue Latanoprost [Xalatan 0.005%] 1 drop BOTH EYES HS Atorvastatin [Lipitor] 40 mg PO W/SUPPER Losartan [Cozaar] 50 mg PO W/SUPPER carvediloL [Coreg] 6.25 mg PO BID@0800,1700 Dorzolamide/Timolol/Pf [Dorzolamide 2%-Timolol 0.5%] 1 drop BOTH EYES HS Gabapentin [Neurontin] 300 mg PO BID@0800,1700 Furosemide [Lasix] 40 mg PO BID@0800,1700 Glimepiride [Amaryl] 1 mg PO W/SUPPER Acetaminophen [Tylenol Arthritis] 650 mg PO BID@0800,1700 traMADol HCL 50 mg PO BID@0800,1700 Apixaban [Eliquis] 5 mg PO BID@0800,1700 calcium polycarbophiL [Fibercon] 625 mg PO BID@0800,1700 Discharge Medication List Latanoprost [Xalatan 0.005%] 1 drop BOTH EYES HS 10/18/16 [History] Atorvastatin [Lipitor] 40 mg PO W/SUPPER 01/07/17 [History] Losartan [Cozaar] 50 mg PO W/SUPPER 03/22/19 [History] Dorzolamide/Timolol/Pf [Dorzolamide 2%-Timolol 0.5%] 1 drop BOTH EYES HS 01/10/20 [History] Gabapentin [Neurontin] 300 mg PO BID@0800,1700 01/10/20 [History] carvediloL [Coreg] 6.25 mg PO BID@0800,1700 01/10/20 [History] Acetaminophen [Tylenol Arthritis] 650 mg PO BID@0800,169903/20/20 [History] Apixaban [Eliquis] 5 mg PO BID@0800,169903/20/20 [History] Furosemide [Lasix] 40 mg PO BID@0800,169903/20/20 [History] Glimepiride [Amaryl] 1 mg PO W/SUPPER 03/20/20 [History] traMADol HCL 50 mg PO BID@0800,169903/20/20 [History] calcium polycarbophiL [Fibercon] 625 mg PO BID@0800,169904/20/20 [History] Follow up Appointment(s)/Referral(s): Beltran Castillo MD [Primary Care Provider] - 1-2 days Bert Zuñiga MD [STAFF PHYSICIAN] - 05/15/20 2:30 pm [facility], [NON-STAFF] - 1-2 Days Patient Instructions/Handouts: Heart Failure (DC) Activity/Diet/Wound Care/Special Instructions: Activity: as tolerated Diet: heart healthy, carb consistent Special Instructions: 05/04 take evening dose of lasix 05/05 take lasix 3 times that day 05/06 resume twice daily lasix Discharge Disposition: HOME WITH HOME HEALTH SERVICES
--- NOTE | 2020-05-04 15:09 | CONS ---
CONSULTATION CHIEF COMPLAINT: Shortness of breath. Ben is a 80-year-old gentleman with history of coronary artery disease, ischemic cardiomyopathy, status post AICD, chronic renal insufficiency, chronic systolic heart failure, diabetes, who presents to hospital complaining of worsening shortness of breath for the last several days. It is mild to moderate intensity, gradually came on and progressively got worse. The patient became short of breath even with day-to-day activities. He had leg edema. Did not have any PND or orthopnea. He has an ejection fraction of 30% to 35% based on an echocardiogram from last year. He underwent recent cardiac catheterization that revealed a chronically occluded right coronary artery with [id number] collaterals and a patent stent within the LAD and was advised medical therapy. The patient's clinical presentation is consistent with acute exacerbation of chronic systolic heart failure. He had been treated with IV Lasix with significant improvement in his symptoms. The patient normally takes 80 mg of Lasix at home and takes extra doses as needed. PAST MEDICAL HISTORY: Significant for ischemic cardiomyopathy, paroxysmal atrial fibrillation, hypertension, diabetes, dyslipidemia. MEDICATIONS: Medications at home include Lasix 40 b.i.d., Eliquis 5 b.i.d., Lipitor 40 daily, Cozaar, Amaryl, Neurontin, and tramadol. ALLERGIES: The patient is allergic to SPIRONOLACTONE, VICODIN, and AMOXICILLIN. FAMILY HISTORY: Negative for premature coronary artery disease. SOCIAL HISTORY: Negative for current smoking, EtOH abuse, or drug abuse. REVIEW OF SYSTEMS: HEENT is unremarkable. CARDIAC: As described above. RESPIRATORY: As described above. GI: Negative. GENITOURINARY: Negative. ALLERGY/IMMUNOLOGY: Negative. MUSCULOSKELETAL: Significant for arthritis. PSYCHOSOCIAL: Negative. ENDOCRINE: Negative. DERM: Negative. CONSTITUTIONAL: Negative. ONCOLOGICAL: Negative. EXHAUST EMISSIONS INSPECTOR: Negative. Rest of the system review is not relevant. PHYSICAL EXAMINATION: Afebrile. Heart rate is 60 beats per minute. Blood pressure is 136/68. Respiratory rate is 18. O2 saturation is 100% on 2 L. There is no jugular venous distention. Carotid upstroke is normal. There is no bruit. Chest exam reveals good air entry bilaterally. Heart exam reveals first and second heart sounds. A systolic murmur at the left lower sternal border. Abdomen is soft. Examination of extremities reveals mild edema. Peripheral pulses are felt. LABS: Labs show a hemoglobin of 12.9, platelet count is 156, potassium is 4.4. BUN is 35, creatinine is 2. Troponin is 0.012. LDL cholesterol is 76. EKG showed sinus rhythm, poor R-wave progression and nonspecific ST-T wave changes. ASSESSMENT: 1. Acute exacerbation of chronic systolic heart failure. 2. Ischemic cardiomyopathy with severe left ventricular dysfunction. 3. Status post AICD. 4. Multivessel coronary artery disease, status post recent cardiac cath. 5. Paroxysmal atrial fibrillation. PLAN: I will treat the patient with IV Lasix, beta blockers, VIV inhibitors. Eliquis will be controlled. MMODL / IJN: [id number] /
== END 2020-05-04 11:35 | disposition home health service (06) ==
LOC: EC 10:56 → 6NMEDSUR 14:31
PROVIDERS: ADMIT Internal Medicine; ATTEND Internal Medicine
DX: I13.0 Hypertensive heart and chronic kidney disease with heart failure and stage 1 through stage 4 chronic kidney disease, or unspecified chronic kidney disease (principal); I50.23 Acute on chronic systolic (congestive) heart failure; N18.4 Chronic kidney disease, stage 4 (severe); E11.40 Type 2 diabetes mellitus with diabetic neuropathy, unspecified; E11.22 Type 2 diabetes mellitus with diabetic chronic kidney disease; E78.5 Hyperlipidemia, unspecified; I25.2 Old myocardial infarction; M19.90 Unspecified osteoarthritis, unspecified site; K57.90 Diverticulosis of intestine, part unspecified, without perforation or abscess without bleeding; H40.9 Unspecified glaucoma; G89.29 Other chronic pain; M54.9 Dorsalgia, unspecified; R53.1 Weakness; I25.10 Atherosclerotic heart disease of native coronary artery without angina pectoris; K80.20 Calculus of gallbladder without cholecystitis without obstruction; R09.89 Other specified symptoms and signs involving the circulatory and respiratory systems; R19.7 Diarrhea, unspecified; K59.00 Constipation, unspecified; M54.2 Cervicalgia; M25.512 Pain in left shoulder; M25.511 Pain in right shoulder; M79.672 Pain in left foot; M79.671 Pain in right foot; M10.9 Gout, unspecified; I16.0 Hypertensive urgency; I25.5 Ischemic cardiomyopathy; I48.0 Paroxysmal atrial fibrillation; M79.89 Other specified soft tissue disorders; J44.9 Chronic obstructive pulmonary disease, unspecified; Z86.718 Personal history of other venous thrombosis and embolism; Z87.442 Personal history of urinary calculi; Z86.711 Personal history of pulmonary embolism; Z95.810 Presence of automatic (implantable) cardiac defibrillator; Z20.822 Contact with and (suspected) exposure to COVID-19; Z87.01 Personal history of pneumonia (recurrent); Z85.46 Personal history of malignant neoplasm of prostate; Z87.891 Personal history of nicotine dependence; Z79.899 Other long term (current) drug therapy; Z79.01 Long term (current) use of anticoagulants; Z79.84 Long term (current) use of oral hypoglycemic drugs; Z88.5 Allergy status to narcotic agent; Z88.8 Allergy status to other drugs, medicaments and biological substances; Z88.0 Allergy status to penicillin; E66.9 Obesity, unspecified; Z68.32 Body mass index [BMI] 32.0-32.9, adult
CPT/HCPCS: 36415; 71046; 78582; 80048; 80053; 80061; 83605; 83735; 83880; 84484; 85025; 85027; 85610; 85730; 87635; 93005; 93306; 94640; 96374; 96376; 99285

== ENCOUNTER → 2020-06-13 | Outpatient (CLI) | payer MEDICARE, BC ==
[2020-06-13 10:29] LABS: Appearance,Urine Clear (Clear); Bilirubin,Urine Negative (Negative); Blood,Urine Moderate (Negative); Color,Urine Yellow; Glucose,Urine (UA) Negative (Negative); Ketones,Urine Negative (Negative); Leukocyte Esterase,Urine Trace (Negative); Mucus,Urine Rare /hpf; Nitrite,Urine Negative (Negative); Protein,Urine 1+ (Negative); RBC,Urine 8 /hpf (0-5); Specific Gravity,Urine 1.009 (1.001-1.035); Urobilinogen,Urine <2.0 mg/dL (<2.0); WBC,Urine 3 /hpf (0-5)
[2020-06-13 15:27] LABS: HCT 40.6 % (39.6-50.0); HGB 12.7 g/dL (13.0-17.0); MCH 28.7 pg (27.0-32.0); MCHC 31.3 g/dL (32.0-37.0); MCV 91.6 fL (80.0-97.0); Mean Platelet Volume 11.4 fL (9.5-12.2); Platelet Count 164 X 10*3/uL (140-440); RBC 4.43 X 10*6/uL (4.40-5.60); RDW 15.7 % (11.5-14.5); WBC 7.26 X 10*3/uL (4.50-10.00)
[2020-06-13 18:33] LABS: Phosphorus 3.9 mg/dL (2.4-5.1)
== END | disposition home or self-care (01) ==
LOC: LABWHC1 08:55
PROVIDERS: ATTEND Internal Medicine
DX: N18.4 Chronic kidney disease, stage 4 (severe) (principal)
CPT/HCPCS: 36415; 81001; 82306; 84100; 85027

== ENCOUNTER → 2020-06-28 | Outpatient (CLI) | payer MEDICARE, BC ==
--- NOTE | 2020-06-28 07:41 | US ---
EXAMINATION TYPE: US kidneys/renal and bladder DATE OF EXAM: 06/28/2020 COMPARISON: NONE CLINICAL HISTORY: Chronic Kidney Disease stage 4. Abnormal labs EXAM MEASUREMENTS: Right Kidney: 11.6 x 4.8 x 6.6 cm Left Kidney: 10.0 x 3.8 x 4.9 cm Right Kidney: No hydronephrosis or masses seen Left Kidney: lateral mid pole = 0.7 x 0.7 x 0.6 cm Bladder: distended, anechoic Bilateral Jets not seen Incidental finding: echogenic foci seen in gallbladder There is no evidence for hydronephrosis at this point in time. No nephrolithiasis is seen. No solid masses are identified. The urinary bladder is anechoic. IMPRESSION: Cyst left kidney
== END | disposition home or self-care (01) ==
LOC: RADUSWWP 06:56
PROVIDERS: ATTEND Internal Medicine
DX: N28.1 Cyst of kidney, acquired (principal); N18.4 Chronic kidney disease, stage 4 (severe)
CPT/HCPCS: 76770

== ENCOUNTER → 2020-08-21 | Outpatient (CLI) | payer MEDICARE, BC ==
--- NOTE | 2020-08-21 13:05 | XR ---
EXAMINATION TYPE: XR foot complete LT DATE OF EXAM: 08/21/2020 CLINICAL HISTORY: Left foot pain TECHNIQUE: Frontal, lateral, and oblique images of the foot are obtained. COMPARISON: None FINDINGS: There is an acute fracture of the base of the fifth metatarsal diaphysis with minimal angulation at t he fracture site. Midfoot degenerative changes are seen. Calcaneal spur is noted. IMPRESSION: Fracture of the proximal aspect of the diaphysis of the fifth metatarsal with minimal angulation.
== END | disposition home or self-care (01) ==
LOC: RADXRMAIN 12:26
PROVIDERS: ATTEND Family Medicine
DX: S92.352A Displaced fracture of fifth metatarsal bone, left foot, initial encounter for closed fracture (principal)

== ENCOUNTER → 2020-12-01 | Outpatient (CLI) | payer MEDICARE, BC ==
[2020-12-01 14:03] LABS: Appearance,Urine Clear (Clear); Bilirubin,Urine Negative (Negative); Blood,Urine Moderate (Negative); Color,Urine Light Yellow; Glucose,Urine (UA) Negative (Negative); Ketones,Urine Negative (Negative); Leukocyte Esterase,Urine Negative (Negative); Mucus,Urine Rare /hpf; Nitrite,Urine Negative (Negative); PH, Urine 5.5 (5.0-8.0); Protein,Urine 1+ (Negative); RBC,Urine 13 /hpf (0-5); Specific Gravity,Urine 1.012 (1.001-1.035); Squamous Epithelial Cell,Urine <1 /hpf (0-4); Urobilinogen,Urine <2.0 mg/dL (<2.0); WBC,Urine 3 /hpf (0-5)
[2020-12-01 14:44] LABS: Creatinine,Urine Random 68.6 mg/dL; Protein/Creatinine Ratio,Urine 0.743
[2020-12-01 19:02] LABS: Basophils # (A) 0.05 X 10*3/uL (0.00-0.10); Basophils % (A) 0.7 %; Eosinophils % (A) 2.9 %; HCT 39.8 % (39.6-50.0); Lymphocytes # (A) 1.01 X 10*3/uL (0.90-5.00); Lymphocytes % (A) 14.7 %; MCH 31.1 pg (27.0-32.0); MCHC 32.7 g/dL (32.0-37.0); MCV 95.2 fL (80.0-97.0); Mean Platelet Volume 11.5 fL (9.5-12.2); Monocytes # (A) 0.75 X 10*3/uL (0.20-1.00); Monocytes % (A) 10.9 %; Neutrophils # (A) 4.85 X 10*3/uL (1.80-7.70); Neutrophils % (A) 70.5 %; Platelet Count 180 X 10*3/uL (140-440); RBC 4.18 X 10*6/uL (4.40-5.60); RDW 14.9 % (11.5-14.5); WBC 6.88 X 10*3/uL (4.50-10.00)
[2020-12-01 22:40] LABS: Protein, Total 7.6 g/dL (6.2-8.2)
[2020-12-01 23:02] LABS: Ferritin 47.3 ng/mL (22.0-322.0)
[2020-12-02 00:17] LABS: % Iron Saturation 18.04 (15.00-50.00); African American GFR (CKD) 38.3 (60.0-200.0); Albumin 4.4 g/dL (3.80-4.90); Anion Gap 9.2 mmol/L (4.00-12.00); BUN/Creat Ratio 13.16 Ratio (12.00-20.00); Calcium 9.4 mg/dL (8.7-10.3); Carbon Dioxide 26.8 mmol/L (21.6-31.8); Magnesium 2.3 mg/dL (1.5-2.4); Phosphorus 3.9 mg/dL (2.4-5.1); Potassium 4.7 mmol/L (3.5-5.5)
[2020-12-02 00:18] LABS: Uric Acid 9.7 mg/dL (3.7-8.7)
== END | disposition home or self-care (01) ==
LOC: LABWHC1 11:22
PROVIDERS: ATTEND Internal Medicine Nephrology
DX: N18.4 Chronic kidney disease, stage 4 (severe) (principal); E55.9 Vitamin D deficiency, unspecified; N25.81 Secondary hyperparathyroidism of renal origin; M10.9 Gout, unspecified; N39.0 Urinary tract infection, site not specified; D64.9 Anemia, unspecified; R80.9 Proteinuria, unspecified
CPT/HCPCS: 36415; 80048; 81001; 82040; 82306; 82570; 82728; 83540; 83550; 83735; 83883; 83970; 84100; 84156; 84165; 84550; 85025; 86334

== ENCOUNTER → 2021-04-10 | Outpatient (CLI) | payer MEDICARE, BC | END | disposition home or self-care (01) | LOC: LABWHC1 07:16 | PROVIDERS: ATTEND Urology | DX: C61 Malignant neoplasm of prostate (principal) | CPT/HCPCS: 36415; 84153 ==

== ENCOUNTER 2021-04-30 06:05 | Day surgery (SDC) | payer MEDICARE, BC ==
[2021-04-26 10:14] VITALS: BMI 30.1
[~2021-04-30 06:05] MED LIST changes: +ACETAMINOPHEN TAB 500 MG TAB PO PRN; -DEXAMETHASONE SOD PHOSPHATE 4 MG/ML 1 ML VIAL IV ONE; +HEPARIN SODIUM,PORCINE/PF 5,000 UNIT/0.5 ML SYRINGE SQ PRN; -LACTATED RINGERS 1,000 ML IV SCH; -LIDOCAINE 1% (10MG/ML) FOR IV START INTRADERMA PRN; +Pre Op ABX Message 1 EACH MISC MISCELLANE ONE
[2021-04-30] MEDS ORDERED: LACTATED RINGERS 1,000 ML IV SCH (06:42)
[2021-04-30] MEDS ORDERED: LIDOCAINE 1% (10MG/ML) FOR IV START INTRADERMA PRN (06:42)
[2021-04-30] MEDS ORDERED: ONDANSETRON 4 MG/2 ML VIAL IVP ONE (06:42)
[2021-04-30] MEDS ORDERED: fentaNYL (PF) 50 MCG/ML 2 ML AMP IV PRN (07:00)
[2021-04-30] MEDS ORDERED: DEXAMETHASONE SOD PHOSPHATE 4 MG/ML 1 ML VIAL IV ONE (07:20)
[2021-04-30 07:24] LABS: Glucose,Whole Blood 114 mg/dL (75-99)
[2021-04-30 07:35] VITALS: TEMP 97
--- NOTE | 2021-04-30 07:40 | P.GSHP ---
History of Present Illness H&P Date: 04/30/21 Chief Complaint: Right back lipoma 81-year-old male seen 1 month ago. Patient with complaints of a bulge right upper back for many years. Thinks it is getting larger. Lately has been having headaches and nerve pains. Thinks the lump is progressing on something there. No drainage. No prior biopsies. Past Medical History Past Medical History: Coronary Artery Disease (CAD), Cancer, Chest Pain / Angina, Heart Failure, COPD, Diabetes Mellitus, Eye Disorder, Hyperlipidemia, Hypertension, Myocardial Infarction (SC), Osteoarthritis (OA), Pneumonia, Prostate Disorder, Pulmonary Embolus (PE), Renal Disease Additional Past Medical History / Comment(s): Chronic Kidney Disease-Just monitoring, hx prostate cancer, chronic neck/bilateral shoulder/back pain, SC's in 1980 and 2016 Last Myocardial Infarction Date:: 10/18/16 History of Any Multi-Drug Resistant Organisms: None Reported Past Surgical History: AICD, Back Surgery, Heart Catheterization, Heart Catheterization With Stent, Hernia Repair, Pacemaker, Prostate Surgery Additional Past Surgical History / Comment(s): CARDIOVERSION, lumbar surgery X2, cervical epidural injections, bilateral inguinal hernia repairs, TURP, bilateral cataract removal Past Anesthesia/Blood Transfusion Reactions: No Reported Reaction Date of Last Stent Placement:: 10/18/16 Type of Cardiac Device: AICD Device Placement Date:: 01-10-17 Past Psychological History: No Psychological Hx Reported Smoking Status: Former smoker Past Alcohol Use History: None Reported Past Drug Use History: None Reported - Past Family History Mother Family Medical History: Unable to Obtain Additional Family Medical History / Comment(s): Mother of unknown cause. Father Family Medical History: Unable to Obtain Additional Family Medical History / Comment(s): Father of unknown cause. Medications and Allergies Home Medications Medication Instructions Recorded Confirmed Type Atorvastatin [Lipitor] 40 mg PO HS 01/07/17 04/26/21 History Losartan [Cozaar] 50 mg PO DAILY 03/22/19 04/26/21 History Gabapentin [Neurontin] 300 mg PO BID 01/10/20 04/26/21 History carvediloL [Coreg] 6.25 mg PO BID 01/10/20 04/26/21 History Acetaminophen [Tylenol Arthritis] 650 mg PO BID 03/20/20 04/26/21 History Apixaban [Eliquis] 5 mg PO BID 03/20/20 04/30/21 History Furosemide [Lasix] 40 mg PO BID 03/20/20 04/26/21 History Glimepiride [Amaryl] 1 mg PO DAILY 03/20/20 04/26/21 History traMADol HCL 50 mg PO BID 03/20/20 04/26/21 History calcium polycarbophiL [Fibercon] 625 mg PO DAILY 04/20/20 04/26/21 History Cholecalciferol [Vitamin D3 (25 50 mcg PO Q7D 04/26/21 04/26/21 History Mcg = 1000 Iu)] calcitrioL [Calcitriol] 0.25 mcg PO DAILY 04/26/21 04/26/21 History Allergies Allergy/AdvReac Type Severity Reaction Status Date / Time amoxicillin Allergy Severe Unknown- Verified 04/30/21 07:08 was hospitalized spironolactone Allergy Unknown Verified 04/30/21 07:08 hydrocodone bitartrate AdvReac Confusion Verified 04/30/21 07:08 [From Vicodin] Surgical - Exam Physical exam: General: Well-developed, well-nourished HEENT: Normocephalic, sclerae nonicteric Abdomen: Nontender, nondistended Extremities: No edema, right upper back with 8 x 5 cm lipomatous mass Neuro: Alert and oriented Results - Labs Abnormal Lab Results - Last 24 Hours (Table) 04/30/21 Range/Units 07:16 POC Glucose (mg/dL) 114 H (75-99) mg/dL Assessment and Plan (1) Lipoma of back Narrative/Plan: 81-year-old male with upper back lipoma. We'll proceed with surgical excision. Risks of bleeding, infection, scarring, recurrence, seroma, nerve injury reviewed. He understands and wishes to proceed. Current Visit: Yes Status: Acute Code(s): D17.1 - BENIGN LIPOMATOUS NEOPLASM OF SKIN, SUBCU OF TRUNK SNOMED Code(s): 686774857
[2021-04-30] MEDS ORDERED: PROPOFOL 10 MG/ML 20 ML VIAL IV ONE (07:50)
[2021-04-30] MEDS ORDERED: KETAMINE 10 MG/ML 20 ML VIAL ONE (07:50)
[2021-04-30] MEDS ORDERED: fentaNYL (PF) 50 MCG/ML 2 ML AMP ONE (07:50)
[2021-04-30] MEDS ORDERED: MIDAZOLAM 2 MG/2 ML VIAL ONE (07:50)
[2021-04-30] MEDS ORDERED: BUPIVACAINE (PF) 0.25% 30 ML VIAL SQ ONE (08:05)
[2021-04-30] MEDS ORDERED: SODIUM CHLORIDE 0.9% 100 ML with ceFAZolin 2,000 MG IV ONE ×2 (08:05)
[2021-04-30] MEDS ORDERED: NALOXONE 0.4 MG/ML 1 ML VIAL IV PRN (08:36)
--- NOTE | 2021-04-30 08:39 | P.OP ---
Date of Procedure: 04/30/21 Procedure(s) Performed: PREOPERATIVE DIAGNOSIS: Right upper back lipoma POSTOPERATIVE DIAGNOSIS: Same PROCEDURE: Excision right upper back lipoma with intermediate closure SURGEON: Makeda EBL: 10 mL ANESTHESIA: Sedation and local COMPLICATIONS: None OPERATIVE PROCEDURE: Patient placed in the left decubitus position. The patient's right upper back prepped and draped sterile. Skin localized with Marcaine. A horizontal incision made overlying the mass. Subcutaneous tissues divided using electrocautery. Mass easily excised with blunt dissection. This mass was multilobulated but measured approximately 8 x 5 x 5 cm. Incision inspected. No bleeding seen. Subcutaneous tissues closed using interrupted 3-0 Vicryl sutures. Skin closed using running 3-0 Monocryl subcuticular suture. Skin glue and sterile dressings applied. Length of intermediate closure 8 cm. DISPOSITION: Stable to recovery room
[2021-04-30 08:42] VITALS: RESP 16
[2021-04-30 08:57] VITALS: BP 143/83; PULSE 60
== END 2021-04-30 09:51 | disposition home or self-care (01) ==
LOC: OR 06:05
PROVIDERS: ATTEND Surgery
DX: D17.1 Benign lipomatous neoplasm of skin and subcutaneous tissue of trunk (principal); I25.10 Atherosclerotic heart disease of native coronary artery without angina pectoris; I13.0 Hypertensive heart and chronic kidney disease with heart failure and stage 1 through stage 4 chronic kidney disease, or unspecified chronic kidney disease; N18.31 Chronic kidney disease, stage 3a; I50.9 Heart failure, unspecified; J44.9 Chronic obstructive pulmonary disease, unspecified; E11.9 Type 2 diabetes mellitus without complications; E78.5 Hyperlipidemia, unspecified; I25.2 Old myocardial infarction; M19.90 Unspecified osteoarthritis, unspecified site; Z87.01 Personal history of pneumonia (recurrent); Z85.46 Personal history of malignant neoplasm of prostate; Z86.711 Personal history of pulmonary embolism; N28.9 Disorder of kidney and ureter, unspecified; Z95.810 Presence of automatic (implantable) cardiac defibrillator; Z95.5 Presence of coronary angioplasty implant and graft; Z98.890 Other specified postprocedural states; Z95.0 Presence of cardiac pacemaker; Z79.01 Long term (current) use of anticoagulants; Z79.891 Long term (current) use of opiate analgesic; Z79.899 Other long term (current) drug therapy; Z88.5 Allergy status to narcotic agent; Z88.0 Allergy status to penicillin; Z88.8 Allergy status to other drugs, medicaments and biological substances
CPT/HCPCS: 88304; 21933; J2250; J1100; J2405; J0690; J3010; J2704; J1644

== ENCOUNTER → 2021-05-08 | Outpatient (CLI) | payer MEDICARE, BC ==
[2021-05-08 12:07] LABS: Basophils # (A) 0.06 X 10*3/uL (0.00-0.10); Basophils % (A) 0.7 %; Eosinophils # (A) 0.29 X 10*3/uL (0.04-0.35); Eosinophils % (A) 3.4 %; HCT 40.7 % (39.6-50.0); HGB 12.4 g/dL (13.0-17.0); Immature Grans, Automated 0.2 %; Lymphocytes # (A) 0.99 X 10*3/uL (0.90-5.00); Lymphocytes % (A) 11.4 %; MCH 28.4 pg (27.0-32.0); MCHC 30.5 g/dL (32.0-37.0); MCV 93.3 fL (80.0-97.0); Monocytes # (A) 0.57 X 10*3/uL (0.20-1.00); Monocytes % (A) 6.6 %; NRBC Per 100 WBC 0 /100 WBCS (0.0-0.0); Neutrophils # (A) 6.72 X 10*3/uL (1.80-7.70); Neutrophils % (A) 77.7 %; Platelet Count 196 X 10*3/uL (140-440); RBC 4.36 X 10*6/uL (4.40-5.60); RDW 14.7 % (11.5-14.5); WBC 8.65 X 10*3/uL (4.50-10.00)
[2021-05-08 12:43] LABS: % Iron Saturation 17.57 (15.00-50.00); Anion Gap 13.1 mmol/L (10.00-18.00); BUN/Creat Ratio 13.11 Ratio (12.00-20.00); Blood Urea Nitrogen 24.9 mg/dL (9.0-27.0); Calcium 9.5 mg/dL (8.7-10.3); Carbon Dioxide 23.8 mmol/L (20.0-27.5); Magnesium 2.4 mg/dL (1.5-2.4); Non-African American GFR(CKD) 32.8 (60.0-200.0); Phosphorus 3.6 mg/dL (2.4-5.1); Potassium 4.7 mmol/L (3.5-5.5); Uric Acid 6.9 mg/dL (3.7-8.7)
[2021-05-08 13:02] LABS: Albumin 3.9 g/dL (3.8-4.9); Ferritin 81.8 ng/mL (22.0-322.0)
[2021-05-08 14:31] LABS: Appearance,Urine Clear (Clear); Bilirubin,Urine Negative (Negative); Blood,Urine Moderate (Negative); Color,Urine Yellow (Yellow); Ketones,Urine Negative (Negative); Leukocyte Esterase,Urine Moderate (Negative); Nitrite,Urine Negative (Negative); Protein,Urine 100 (Negative); Specific Gravity,Urine 1.015 (1.001-1.030)
[2021-05-08 14:42] LABS: Bacteria,Urine 3+ /HPF (None Seen); RBC,Urine 21-50 /HPF (0-2); WBC,Urine 51-100 /HPF (0-5)
[2021-05-08 18:06] LABS: Creatinine,Urine Random 99.9 mg/dL (39.0-259.0)
== END | disposition home or self-care (01) ==
LOC: LABWHC1 07:03
PROVIDERS: ATTEND Internal Medicine Nephrology
DX: N25.81 Secondary hyperparathyroidism of renal origin (principal); N18.4 Chronic kidney disease, stage 4 (severe); E55.9 Vitamin D deficiency, unspecified; M10.9 Gout, unspecified; N39.0 Urinary tract infection, site not specified; D64.9 Anemia, unspecified; R80.9 Proteinuria, unspecified
CPT/HCPCS: 36415; 80048; 81001; 82040; 82306; 82570; 82728; 83540; 83550; 83735; 83970; 84100; 84156; 84550; 85025; 86334; 86335

== ENCOUNTER 2021-07-16 09:03 | Observation (INO) | payer MEDICARE, BC ==
--- NOTE | 2021-07-16 09:22 | ED ---
General Adult HPI - General Chief complaint: Back Pain/Injury Stated complaint: back pain Time Seen by Provider: 07/16/21 09:08 Source: patient, EMS, RN notes reviewed Mode of arrival: EMS Limitations: no limitations - History of Present Illness Initial comments: Patient is a pleasant 81-year-old male presenting to the emergency department with concerns for back discomfort. Patient has chronic back problems and has had previous surgery. Patient has recently seen his back doctor and has another appointment this week. Patient states he was working at the [employer] yesterday and doing lifting and moving which seemed to exacerbate his back problems. Patient states he got worse last night and worse again this morning. Patient states discomfort is much improved with 10 mg of morphine by EMS. No incontinence or retention of bowel or bladder. No weakness or loss of sensation. - Related Data Home Medications Medication Instructions Recorded Confirmed Atorvastatin [Lipitor] 40 mg PO HS 01/07/17 04/26/21 Losartan [Cozaar] 50 mg PO DAILY 03/22/19 04/26/21 Gabapentin [Neurontin] 300 mg PO BID 01/10/20 04/26/21 carvediloL [Coreg] 6.25 mg PO BID 01/10/20 04/26/21 Acetaminophen [Tylenol Arthritis] 650 mg PO BID 03/20/20 04/26/21 Apixaban [Eliquis] 5 mg PO BID 03/20/20 04/30/21 Furosemide [Lasix] 40 mg PO BID 03/20/20 04/26/21 Glimepiride [Amaryl] 1 mg PO DAILY 03/20/20 04/26/21 traMADol HCL 50 mg PO BID 03/20/20 04/26/21 calcium polycarbophiL [Fibercon] 625 mg PO DAILY 04/20/20 04/26/21 Cholecalciferol [Vitamin D3 (25 50 mcg PO Q7D 04/26/21 04/26/21 Mcg = 1000 Iu)] calcitrioL [Calcitriol] 0.25 mcg PO DAILY 04/26/21 04/26/21 Allergies Allergy/AdvReac Type Severity Reaction Status Date / Time amoxicillin Allergy Severe Unknown- Verified 07/16/21 09:13 was hospitalized spironolactone Allergy Unknown Verified 07/16/21 09:13 hydrocodone bitartrate AdvReac Confusion Verified 07/16/21 09:13 [From Vicodin] Review of Systems ROS Statement: Those systems with pertinent positive or pertinent negative responses have been documented in the HPI. ROS Other: All systems not noted in ROS Statement are negative. Constitutional: Denies: fever Eyes: Denies: eye pain ENT: Denies: ear pain Respiratory: Denies: cough Cardiovascular: Denies: chest pain Endocrine: Denies: fatigue Gastrointestinal: Denies: abdominal pain Genitourinary: Denies: dysuria Musculoskeletal: Reports: as per HPI, back pain Skin: Denies: rash Neurological: Denies: weakness, numbness, paresthesias Past Medical History Past Medical History: Cancer, Hyperlipidemia, Hypertension, Renal Disease Additional Past Medical History / Comment(s): Chronic Kidney Disease, right eye Glaucoma, hx prostate cancer with surgery, chronic neck, bilateral shoulder and back pain, hx Gout, fatty tumor on right back, gallstones. RI's in 1980 and 2016. Last Myocardial Infarction Date:: 10/18/16 History of Any Multi-Drug Resistant Organisms: None Reported Past Surgical History: Pacemaker Additional Past Surgical History / Comment(s): CARDIOVERSION, lumbar surgery X2, cervical epidural injections, bilateral inguinal hernia repairs, TURP, colonoscopy, bilateral cataract removals., Heart Cath 03/22/20 Past Anesthesia/Blood Transfusion Reactions: No Reported Reaction Date of Last Stent Placement:: 10/18/16 Type of Cardiac Device: AICD Device Placement Date:: 01-10-17 Past Psychological History: No Psychological Hx Reported Smoking Status: Former smoker Past Alcohol Use History: None Reported Past Drug Use History: None Reported - Past Family History Mother Family Medical History: Unable to Obtain Additional Family Medical History / Comment(s): Mother of unknown cause. Father Family Medical History: Unable to Obtain Additional Family Medical History / Comment(s): Father of unknown cause. General Exam Limitations: no limitations General appearance: alert, in no apparent distress Head exam: Present: normocephalic Eye exam: Present: normal appearance Neck exam: Present: normal inspection Respiratory exam: Present: normal lung sounds bilaterally Cardiovascular Exam: Present: regular rate, normal rhythm Expanded Peripheral pulses: 2+: Dorsalis Pedis (R), Dorsalis Pedis (L) GI/Abdominal exam: Present: soft. Absent: distended, tenderness, pulsatile mass Extremities exam: Present: normal inspection Back exam: Present: tenderness (Mild tenderness lower lumbar region) Neurological exam: Present: alert. Absent: motor sensory deficit Expanded Sensory exam: Lower Extremity Light Touch: Normal Motor strength exam: RLE: 5, LLE: 5 Psychiatric exam: Present: normal affect, normal mood Skin exam: Present: normal color Course Vital Signs 07/16/21 09:07 Temperature 97.9 F Pulse Rate 80 Respiratory 20 Rate Blood Pressure 133/62 O2 Sat by Pulse 97 Oximetry Medical Decision Making - Medical Decision Making Patient reevaluated still complaining of discomfort despite 10 mg of morphine from EMS. Patient states he is unable to get out of bed. Patient states at home he was not even able to take one step. Case discussed with Dr. Silva, who will admit For Dr. paz only. Dr. Mosley son will be placed on consult. Disposition Clinical Impression: Lower back pain Disposition: ADMITTED IP TO THIS HOSP Is patient prescribed a controlled substance at d/c from ED?: No Referrals: Beltran Castillo MD [Primary Care Provider] - 1-2 days Time of Disposition: 10:49
[2021-07-16] MEDS ORDERED: KETOROLAC 15 MG/ML 1 ML VIAL IVP STA (10:47)
[2021-07-16] MEDS ORDERED: NALOXONE 0.4 MG/ML 1 ML VIAL IV PRN ×2 (10:49→11:29)
[2021-07-16] MEDS ORDERED: HYDROmorphone 1 MG/ML 1 ML SYRINGE IVP PRN ×2 (10:49→11:29)
[2021-07-16] MEDS ORDERED: HYDROmorphone 0.5 MG/0.5 ML SYRINGE IVP PRN (10:49)
[2021-07-16 11:21] LABS: Basophils # (A) 0.1 k/uL (0-0.2); Basophils % (A) 1 %; Eosinophils # (A) 0.3 k/uL (0-0.7); Eosinophils % (A) 3 %; HCT 38.1 % (39.0-53.0); Hypochromasia Slight; Lymphocytes # (A) 1.1 k/uL (1.0-4.8); Lymphocytes % (A) 15 %; MCH 29.9 pg (25.0-35.0); MCHC 31.6 g/dL (31.0-37.0); MCV 94.6 fL (80.0-100.0); Mean Platelet Volume 8.9; Monocytes # (A) 0.6 k/uL (0-1.0); Monocytes % (A) 8 %; Neutrophils # (A) 5.3 k/uL (1.3-7.7); Neutrophils % (A) 71 %; Platelet Count 166 k/uL (150-450); RBC 4.03 m/uL (4.30-5.90); RDW 15.2 % (11.5-15.5); WBC 7.4 k/uL (3.8-10.6)
[2021-07-16] MEDS ORDERED: LACTULOSE 20 GM/30 ML CUP PO PRN (11:29)
[2021-07-16] MEDS ORDERED: bisacodyL 5 MG TABLET.DR PO PRN (11:29)
[2021-07-16] MEDS ORDERED: IBUPROFEN 400 MG TAB PO PRN (11:29)
[2021-07-16] MEDS ORDERED: ACETAMINOPHEN TAB 325 MG TAB PO PRN (11:29)
[2021-07-16] MEDS ORDERED: HYDROcodone/APAP 5-325MG 1 EACH TAB PO PRN (11:29)
[2021-07-16] MEDS ORDERED: traMADol 50 MG TAB PO PRN (11:29)
[2021-07-16 11:45] LABS: Calcium 8.8 mg/dL (8.4-10.2); Potassium 4.5 mmol/L (3.5-5.1)
[2021-07-16] MEDS ORDERED: diazePAM 2 MG TAB PO PRN (12:14)
--- NOTE | 2021-07-16 12:23 | P.HPIM ---
History of Present Illness H&P Date: 07/16/21 Chief Complaint: Back pain, neck pain 81-year-old man with a medical history of COPD, ischemic cardiomyopathy with systolic dysfunction, chronic back and neck pain, gout, history of pulmonary embolism, diabetes, hypertension, hyperlipidemia, chronic kidney disease stage III presented with acute on chronic back and neck pain. Patient says that he had an appointment scheduled for Friday, 07/[address] Ardon with spine surgeryfor what was described to him as a pinched nerve. However, he noted that today he had significant amounts of pain and muscle spasms with even minimal movement. This pain has prevented him from being able to ambulate to and from the bathroom without significant distress. He denies having weakness, fevers, general anesthesia, bowel or bladder incontinence, weight loss. He denies chills, nausea, vomiting, chest pain, palpitations, syncope, presyncope, cough, dyspnea, abdominal pain, constipation, diarrhea, dysuria, dyschezia. In the emergency room, patient is afebrile, 133/62, heart rate is 80, 97% on room air. CBC is a baseline with mild anemia to 12.0. Chemistries demonstrated creatinine of 2.33, with baseline of 1.9 to 2.1. No imaging to review at this time. 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, symmetric Neuro: non-focal, moving all extremities Psych: cooperative, euthymic mood Labs and imaging reviewed as above Assessment/plan: Acute on Chronic Back Pain Muscle Spasms - Admit to observation - Pain control: tylenol PRN, norco PRN, dilaudid PRN, valium ANGELIQUE + PRN - Bowel regimen - Ortho consult - PT consult Chronic Systolic Heart 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 OK's in 1980 and 2016. Last Myocardial Infarction Date:: 10/18/16 History of Any Multi-Drug Resistant Organisms: None Reported Past Surgical History: Pacemaker Additional Past Surgical History / Comment(s): CARDIOVERSION, lumbar surgery X2, cervical epidural injections, bilateral inguinal hernia repairs, TURP, colonoscopy, bilateral cataract removals., Heart Cath 03/22/20 Past Anesthesia/Blood Transfusion Reactions: No Reported Reaction Date of Last Stent Placement:: 10/18/16 Type of Cardiac Device: AICD Device Placement Date:: 01-10-17 Past Psychological History: No Psychological Hx Reported Smoking Status: Former smoker Past Alcohol Use History: None Reported Past Drug Use History: None Reported - Past Family History Mother Family Medical History: Unable to Obtain Additional Family Medical History / Comment(s): Mother of unknown cause. Father Family Medical History: Unable to Obtain Additional Family Medical History / Comment(s): Father of unknown cause. Medications and Allergies Home Medications Medication Instructions Recorded Confirmed Type Atorvastatin [Lipitor] 40 mg PO HS 01/07/17 07/16/21 History Losartan [Cozaar] 50 mg PO DAILY 03/22/19 07/16/21 History Gabapentin [Neurontin] 300 mg PO BID 01/10/20 07/16/21 History carvediloL [Coreg] 6.25 mg PO BID 01/10/20 07/16/21 History Acetaminophen [Tylenol Arthritis] 650 mg PO BID 03/20/20 07/16/21 History Apixaban [Eliquis] 5 mg PO BID 03/20/20 07/16/21 History Furosemide [Lasix] 40 mg PO BID 03/20/20 07/16/21 History Glimepiride [Amaryl] 1 mg PO DAILY 03/20/20 07/16/21 History traMADol HCL 50 mg PO BID 03/20/20 07/16/21 History calcium polycarbophiL [Fibercon] 625 mg PO DAILY 04/20/20 07/16/21 History Cholecalciferol [Vitamin D3 (25 50 mcg PO DAILY 04/26/21 07/16/21 History Mcg = 1000 Iu)] calcitrioL [Calcitriol] 0.25 mcg PO FR 04/26/21 07/16/21 History Allopurinol [Zyloprim] 100 mg PO BID 07/16/21 07/16/21 History Ammonium Lactate Cream [Lac-Hydrin 1 applic TOPICAL BID 07/16/21 07/16/21 History 12% Cream] Clotrimazole Cream [Lotrimin Cream] 1 applic TOPICAL BID 07/16/21 07/16/21 History Dorzolamide-Timol 2.23%/0.68% 1 drop BOTH EYES HS 07/16/21 07/16/21 History [Cosopt] Latanoprost/Pf [Latanoprost 0.005% 1 drop BOTH EYES HS 07/16/21 07/16/21 History Eye Drop] Allergies Allergy/AdvReac Type Severity Reaction Status Date / Time amoxicillin Allergy Severe Unknown- Verified 07/16/21 11:14 was hospitalized spironolactone Allergy Unknown Verified 07/16/21 11:14 hydrocodone bitartrate AdvReac Confusion Verified 07/16/21 11:14 [From Vicodin] Physical Exam Osteopathic Statement: *. No significant issues noted on an osteopathic struc tural exam other than those noted in the History and Physical/Consult. Vitals: Vital Signs Temp Pulse Resp BP Pulse Ox 07/16/21 09:07 97.9 F 80 20 133/62 97 Intake and Output 07/15/21 07/16/21 07/16/21 22:59 06:59 14:59 Other: Weight 104.326 kg Results CBC & Chem 7: 07/16/21 10:52 Labs: Abnormal Lab Results - Last 24 Hours (Table) 07/16/21 Range/Units 10:52 RBC 4.03 L (4.30-5.90) m/uL Hgb 12.0 L (13.0-17.5) gm/dL Hct 38.1 L (39.0-53.0) %
[2021-07-16] MEDS: INSULIN ASPART (NovoLOG) 100 UNIT/ML VIAL SQ SCH ×2 (14:15→17:50)
[2021-07-16] MEDS: diazePAM 2 MG TAB PO SCH ×3 (14:34→21:36)
--- NOTE | 2021-07-16 17:10 | P.HPOR ---
History of Present Illness H&P Date: 07/16/21 Chief Complaint: Low back pain, neck pain, muscle spasms Patient is a 81-year-old male who presented to [facility] early this morning with regards to significant back pain and spasming. 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 He denies any loss of bowel or bl adder control. He describes a sciatic-type symptom on the right lower extremity. He also notes some spasming in the upper extremities and pain in his neck with certain motion. He was evaluated in the emergency room initially, he was admitted under internal medicine for further workup. We're then consulted on this patient. He was evaluated at bedside, he was resting comfortably. He was able to sit up at the side of the bed for exam. Patient admits to a few different back surgeries, he said these were done many years ago he cannot remember the exact date but he thinks over 20 years. He has seen a doctor for his neck pain and has received a few different injections, he has a hard time describing the exact procedure and the physician did perform. He does take gabapentin to 3 times a day which he states that the doctor that did those injections as prescribed. He has seen Dr. Mcghee in the past with regards to his left knee, he is a history of gout which he does take medication for. He has other multiple medical comorbidities. He states that he does utilize a cane for ambulation, he states he's been using this for the last 6-7 months. He states that he has noticed some weakness in the lower extremities and upper extremities. He notes more of the numbness and tingling on the right lower extremity, and the sciatic nerve distribution and this is constant. He denies any severe numbness or shooting pain of the left lower extremity. Spasms in the upper extremity was usually happen when he moves his head/neck in a certain position. Patient denies any bowel or bladder iss ues. He denies any perineal or genital numbness. He denies any active paresthesias of the bilateral upper extremities at this time. Denies any recent trauma, this including falls. Review of Systems Constitutional: Reports as per HPI Past Medical History Past Medical History: Cancer, Hyperlipidemia, Hypertension, Renal Disease Additional Past Medical History / Comment(s): Chronic Kidney Disease, right eye Glaucoma, hx prostate cancer with surgery, chronic neck, bilateral shoulder and back pain, hx Gout, fatty tumor on right back, gallstones. PR's in 1981 and 2017. Last Myocardial Infarction Date:: 10/18/16 History of Any Multi-Drug Resistant Organisms: None Reported Past Surgical History: Pacemaker Additional Past Surgical History / Comment(s): CARDIOVERSION, lumbar surgery X2, cervical epidural injections, bilateral inguinal hernia repairs, TURP, colonoscopy, bilateral cataract removals., Heart Cath 03/22/20 Past Anesthesia/Blood Transfusion Reactions: No Reported Reaction Date of Last Stent Placement:: 10/18/16 Type of Cardiac Device: AICD Device Placement Date:: 01-10-17 Past Psychological History: No Psychological Hx Reported Smoking Status: Former smoker Past Alcohol Use History: None Reported Past Drug Use History: None Reported - Past Family History Mother History Unknown: Yes Family Medical History: Unable to Obtain Additional Family Medical History / Comment(s): Mother of unknown cause. Father History Unknown: Yes Family Medical History: Unable to Obtain Additional Family Medical History / Comment(s): Father of unknown cause. Medications and Allergies Home Medications Medication Instructions Recorded Confirmed Type Atorvastatin [Lipitor] 40 mg PO HS 01/07/17 07/16/21 History Losartan [Cozaar] 50 mg PO DAILY 03/22/19 07/16/21 History Gabapentin [Neurontin] 300 mg PO BID 01/10/20 07/16/21 History carvediloL [Coreg] 6.25 mg PO BID 01/10/20 07/16/21 History Acetaminophen [Tylenol Arthritis] 650 mg PO BID 03/20/20 07/16/21 History Apixaban [Eliquis] 5 mg PO BID 03/20/20 07/16/21 History Furosemide [Lasix] 40 mg PO BID 03/20/20 07/16/21 History Glimepiride [Amaryl] 1 mg PO DAILY 03/20/20 07/16/21 History traMADol HCL 50 mg PO BID 03/20/20 07/16/21 History calcium polycarbophiL [Fibercon] 625 mg PO DAILY 04/20/20 07/16/21 History Cholecalciferol [Vitamin D3 (25 50 mcg PO DAILY 04/26/21 07/16/21 History Mcg = 1000 Iu)] calcitrioL [Calcitriol] 0.25 mcg PO FR 04/26/21 07/16/21 History Allopurinol [Zyloprim] 100 mg PO BID 07/16/21 07/16/21 History Ammonium Lactate Cream [Lac-Hydrin 1 applic TOPICAL BID 07/16/21 07/16/21 History 12% Cream] Clotrimazole Cream [Lotrimin Cream] 1 applic TOPICAL BID 07/16/21 07/16/21 History Dorzolamide-Timol 2.23%/0.68% 1 drop BOTH EYES HS 07/16/21 07/16/21 History [Cosopt] Latanoprost/Pf [Latanoprost 0.005% 1 drop BOTH EYES HS 07/16/21 07/16/21 History Eye Drop] Allergies Allergy/AdvReac Type Severity Reaction Status Date / Time amoxicillin Allergy Severe Unknown- Verified 07/16/21 11:14 was hospitalized spironolactone Allergy Unknown Verified 07/16/21 11:14 hydrocodone bitartrate AdvReac Confusion Verified 07/16/21 11:14 [From Vicodin] Physical Examination Gen: AOx3, NAD VSS stable at this time Integument: No open lesions or sores are visualized at cervical, thoracic or lumbar spine. There is a well-healed incision near the lumbar region. Palpation: He demonstrates no acute tenderness with palpation of the midline and paraspinal regions of the cervical or thoracic spine. He is tender along the right side lumbar paraspinal region. ROM: Full range of motion of the bilateral upper and lower extremities, no focal deficits appreciated Sensory Exam: Senory exam to light touch is intact C5-T1 Senosry exam to light touch is intact L2-S1 Motor: 5/5 strength patient in the bilateral upper extremities with shoulder elevation, shoulder abduction, elbow flexion, elbow extension, wrist extension, wrist flexion 45 strength appreciated in bilateral upper extremities with network admin Right lower extremity- 5/5 with knee extension, knee flexion, plantar flexion, dorsiflexion, EHL, FHL, 4/5 strength is appreciated with hip flexion Left lower extremity- 5/5 with knee extension, knee flexion, plantar flexion, EHL, FHL, 4/5 strength appreciated with dorsiflexion and hip flexion Reflexes: 2/4 in all UE and LE Negative Marilynn's bilaterally Negative Babinski bilaterally Negative clonus bilaterally Special Test: Logroll maneuver reproduces no groin pain bilaterally Negative straight leg raise Results - Labs Labs: Abnormal Lab Results - Last 24 Hours (Table) 07/16/21 07/16/21 07/16/21 Range/Units 10:52 10:52 10:52 RBC 4.03 L (4.30-5.90) m/uL Hgb 12.0 L (13.0-17.5) gm/dL Hct 38.1 L (39.0-53.0) % Chloride 110 H (98-107) mmol/L BUN 34 H (9-20) mg/dL Creatinine 2.33 H (0.66-1.25) mg/dL Magnesium 2.4 H (1.6-2.3) mg/dL H & H 07/16/21 Range/Units 10:52 Hgb 12.0 L (13.0-17.5) gm/dL Hct 38.1 L (39.0-53.0) % Result Diagrams: 07/16/21 10:52 07/16/21 10:52 Assessment and Plan Assessment: Chronic neck pain Acute on chronic back pain Upper and lower extremity muscle spasms Bilateral upper and lower extremity weakness History of lumbar surgery Multiple medical comorbidities Plan: I was able to discuss the case, this including physical physical exam findings and imaging studies might attending Dr. Ardon. I anticipate degenerative changes throughout the cervical and lumbar spine. Imaging studies will help determine the extent of the previous surgery in the position of the lumbar hardware. CT without contrast of the cervical and lumbar spine have been ordered Patient was started on Tylenol/[place]/Dilaudid/Valium as needed for pain control, I did discuss this with internal medicine GI and DVT prophylaxis per primary medical service Weight-bear as tolerated with walker/cane at this time Other medical specialty recommendations Further recommendations to follow Time with Patient: Less than 30
[2021-07-16 17:26] LABS: Glucose,Whole Blood 167 mg/dL (75-99)
[2021-07-16] MEDS: carvediloL 6.25 MG TAB PO SCH (17:50)
--- NOTE | 2021-07-16 17:52 | CT ---
EXAMINATION TYPE: CT cervical spine wo con DATE OF EXAM: 07/16/2021 COMPARISON: 04/27/2014 HISTORY: neck pain and upper extremity weakness CT DLP: 1020.60 mGycm Automated exposure control for dose reduction was used. Images obtained from the skull base to T1 vertebra without contrast. There is a 4 millimeter anterior subluxation of C2 in relation to C3. There is ununited spinous proce ss of C2. This could relate to old trauma. There is moderate anterior bridging osteophyte formation f rom C4 to C7. No acute fracture seen. There is multilevel hypertrophic facet arthropathy. There is no cervical paraspinal mass. IMPRESSION: Moderate multilevel spondylotic changes. There is some subluxation deformity at C2-3 that could relat e to old trauma. Subluxation is new compared to old exam. Ligamentous instability is suspected. No ac malachi fracture seen.
[2021-07-16] MEDS: KETOROLAC 15 MG/ML 1 ML VIAL IVP PRN (18:00)
--- NOTE | 2021-07-16 18:04 | CT ---
EXAMINATION TYPE: CT lumbar spine wo con DATE OF EXAM: 07/16/2021 COMPARISON: 07/30/2017 HISTORY: lower back pain CT DLP: 1983.30 mGycm Automated exposure control for dose reduction was used. Images obtained from the level of T12-S3 vertebra without contrast. Normal alignment. There is degenerative disc space narrowing throughout the lumbar spine with spurrin g and vacuum disc present at L3-4 and L5-S1. There is no lumbar paraspinal mass. No compression fract ure. There is moderately severe spinal stenosis at L3-4 due to facet arthropathy and endplate spur fo rmation. There is moderate spinal stenosis at L5-S1. Abdominal aorta is atheromatous. Sacroiliac join ts are intact. There are sigmoid diverticula. 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 IMPRESSION: Multilevel spondylotic changes. Spinal stenosis at L3-4 and L5-S1 without much change. No acute bony abnormality.
[2021-07-16 20:55] LABS: Glucose,Whole Blood 224 mg/dL (75-99)
[2021-07-16] MEDS ORDERED: ATORVASTATIN 40 MG TAB PO SCH (21:00)
[2021-07-16] MEDS ORDERED: DORZOLAMIDE-TIMOLOL 2.23%/0.68 10ML BTL BOTH EYES SCH (21:00)
[2021-07-16] MEDS ORDERED: LATANOPROST 0.005% OPHTH DROPS 2.5 ML BTL BOTH EYES SCH (21:00)
[2021-07-16] MEDS: ACETAMINOPHEN TAB 325 MG TAB PO SCH (21:35)
[2021-07-16] MEDS: allopurinoL 100 MG TAB PO SCH (21:36)
[2021-07-16] MEDS: FUROSEMIDE 40 MG TAB PO SCH (21:36)
[2021-07-16] MEDS: GABAPENTIN 300 MG CAP PO SCH (21:36)
[2021-07-16 23:33] VITALS: RESP 18
[2021-07-17] MEDS: KETOROLAC 15 MG/ML 1 ML VIAL IVP PRN (04:18)
[2021-07-17 07:43] VITALS: BP 154/76; PULSE 66; TEMP 98
[2021-07-17 07:57] LABS: Glucose,Whole Blood 95 mg/dL (75-99)
[2021-07-17] MEDS: INSULIN ASPART (NovoLOG) 100 UNIT/ML VIAL SQ SCH (08:14)
[2021-07-17] MEDS: FUROSEMIDE 40 MG TAB PO SCH (08:51)
[2021-07-17] MEDS: GABAPENTIN 300 MG CAP PO SCH (08:51)
[2021-07-17] MEDS: carvediloL 6.25 MG TAB PO SCH (08:51)
[2021-07-17] MEDS: diazePAM 2 MG TAB PO SCH (08:51)
[2021-07-17] MEDS: allopurinoL 100 MG TAB PO SCH (08:51)
[2021-07-17] MEDS: ACETAMINOPHEN TAB 325 MG TAB PO SCH (08:51)
[2021-07-17] MEDS ORDERED: CHOLECALCIFEROL 25 MCG (1000 IU) TABLET PO SCH (09:00)
[2021-07-17] MEDS ORDERED: LOSARTAN 50 MG TAB PO SCH (09:00)
[2021-07-17 09:38] LABS: Basophils # (A) 0.06 X 10*3/uL (0.00-0.10); Basophils % (A) 0.8 %; Eosinophils # (A) 0.34 X 10*3/uL (0.04-0.35); Eosinophils % (A) 4.6 %; HCT 34.7 % (39.6-50.0); HGB 10.7 g/dL (13.0-17.0); Immature Grans, Automated 0.3 %; Lymphocytes # (A) 1.14 X 10*3/uL (0.90-5.00); Lymphocytes % (A) 15.4 %; MCH 28.5 pg (27.0-32.0); MCHC 30.8 g/dL (32.0-37.0); MCV 92.5 fL (80.0-97.0); Mean Platelet Volume 11.7 fL (9.5-12.2); Monocytes # (A) 0.63 X 10*3/uL (0.20-1.00); Monocytes % (A) 8.5 %; NRBC Per 100 WBC 0 /100 WBCS (0.0-0.0); Neutrophils % (A) 70.4 %; Platelet Count 165 X 10*3/uL (140-440); RBC 3.75 X 10*6/uL (4.40-5.60); RDW 14.9 % (11.5-14.5); WBC 7.39 X 10*3/uL (4.50-10.00)
--- NOTE | 2021-07-17 09:59 | P.PN ---
Subjective Progress Note Date: 07/17/21 Principal diagnosis: Neck pain, low back pain, muscle spasms Patient was evaluated today at bedside, he is resting comfortably in bed he was actually sitting up. Dr. Ardon was also available for their this morning to examine the patient to discuss options. Computed tomography scan was reviewed of both cervical and lumbar spine. Patient has very severe chronic degenerative changes of both cervical and lumbar spine. No emergent orthopedic surgical intervention is recommended at this time. Combination of Tylenol, anti-inflammatories, muscle relaxers and possible bora roids at this time. Patient associates scheduled to follow-up with Dr. Ardon on 07/20/2021 in the office. He has continued to feel better during the hospital stay. The muscle spasms are very minimal at this time. I did discuss with nursing, the patient was ambulating yesterday and the halls with minimal assistance and doing well. He continues to demonstrate no acute neuropathic symptoms, this to include loss of bowel or bladder function. Objective - Vital Signs Vital signs: Vital Signs Temp 98 F 07/17/21 07:00 Pulse 66 07/17/21 07:00 Resp 18 07/17/21 07:00 BP 154/76 07/17/21 07:00 Pulse Ox 98 07/17/21 07:00 Intake & Output 07/16/21 07/17/21 07/17/21 18:59 06:59 18:59 Intake Total 118 Balance 118 Weight 104.326 kg Intake: Oral 118 Other: Voiding Method Urinal # Voids 0 2 - Exam Gen: AOx3, NAD VSS stable at this time Integument: No open lesions or sores are visualized at cervical, thoracic or lumbar spine. There is a well-healed incision near the lumbar region. Palpation: He demonstrates no acute tenderness with palpation of the midline and paraspinal regions of the cervical or thoracic spine. He is tender along the right side lumbar paraspinal region. 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 Right lower extremity- 5/5 with knee extension, knee flexion, plantar flexion, dorsiflexion, EHL, FHL, 4/5 strength is appreciated with hip flexion Left lower extremity- 5/5 with knee extension, knee flexion, plantar flexion, EHL, FHL, 4/5 strength appreciated with dorsiflexion and hip flexion Reflexes: 2/4 in all UE and LE Negative Marilynn's bilaterally Negative Babinski bilaterally Negative clonus bilaterally Special Test: Logroll maneuver reproduces no groin pain bilaterally Negative straight leg raise - Labs CBC & Chem 7: 07/17/21 05:48 07/16/21 10:52 Labs: Abnormal Lab Results - Last 24 Hours (Table) 07/16/21 07/16/21 07/16/21 Range/Units 10:52 10:52 10:52 RBC 4.03 L (4.30-5.90) m/uL Hgb 12.0 L (13.0-17.5) gm/dL Hct 38.1 L (39.0-53.0) % MCHC (32.0-37.0) g/dL RDW (11.5-14.5) % Chloride 110 H (98-107) mmol/L BUN 34 H (9-20) mg/dL Creatinine 2.33 H (0.66-1.25) mg/dL POC Glucose (mg/dL) (75-99) mg/dL Magnesium 2.4 H (1.6-2.3) mg/dL 07/16/21 07/16/21 07/17/21 Range/Units 17:24 20:53 05:48 RBC 3.75 L (4.30-5.90) m/uL Hgb 10.7 L (13.0-17.5) gm/dL Hct 34.7 L (39.0-53.0) % MCHC 30.8 L (32.0-37.0) g/dL RDW 14.9 H (11.5-14.5) % Chloride (98-107) mmol/L BUN (9-20) mg/dL Creatinine (0.66-1.25) mg/dL POC Glucose (mg/dL) 167 H 224 H (75-99) mg/dL Magnesium (1.6-2.3) mg/dL 07/17/21 Range/Units 05:48 RBC (4.30-5.90) m/uL Hgb (13.0-17.5) gm/dL Hct (39.0-53.0) % MCHC (32.0-37.0) g/dL RDW (11.5-14.5) % Chloride (98-107) mmol/L BUN (9-20) mg/dL Creatinine (0.66-1.25) mg/dL POC Glucose (mg/dL) (75-99) mg/dL Magnesium 2.5 H (1.6-2.3) mg/dL Assessment and Plan Assessment: Chronic neck pain Acute on chronic back pain Multilevel cervical spondylosis Multilevel lumbar spondylosis Upper and lower extremity muscle spasms Bilateral upper and lower extremity weakness History of lumbar surgery Multiple medical comorbidities Plan: Dr. Ardonwakamron available today to discuss the patient's CT results and examine the patient. No emergent was orthopedic surgical intervention is recommended at this time. Patient is actually scheduled to see Dr. Ardon the outpatient setting on 07/20/2021, he was advised to keep this appointment. GI and DVT prophylaxis per primary medical service Weight-bear as tolerated with walker/cane at this time Other medical specialty recommendations Patient is stable for discharge and follow-up in the outpatient center Time with Patient: Less than 30
--- NOTE | 2021-07-17 10:54 | P.DS ---
Providers Date of admission: 07/16/21 10:49 Expected date of discharge: 07/17/21 Attending physician: Shashank Godinez MD Consults: 07/16/21 10:49 Consult Physician Routine Consulting Provider: Fidencio Ardon Consult Reason/Comments: Back pain with muscle spasms, bilateral handgrip weakness Do you want consulting provider notified?: Yes Primary care physician: Beltran Castillo MD Hospital Course: 81-year-old man with a medical history of COPD, ischemic cardiomyopathy with systolic dysfunction, chronic back and neck pain, gout, history of pulmonary embolism, diabetes, hypertension, hyperlipidemia, chronic kidney disease stage III presented with acute on chronic back and neck pain. In the emergency room, patient is afebrile, 133/62, heart rate is 80, 97% on room air. CBC is a baseline with mild anemia to 12.0. Chemistries demonstrated creatinine of 2.33, with baseline of 1.9 to 2.1. Acute on Chronic Back Pain Muscle Spasms - Admitted to observation, Pain treated with: tylenol PRN, norco PRN, dilaudid PRN, valium ANGELIQUE + PRN. Provided bowel regimen. Ortho consulted, and recommended non-con CT of C/L spine, which showed severe degenerative disease at multiple levels; L spine also showed spinal stenosis, unchanged from previous, at two levels. Ortho recommended outpatient f/u, and future consideration of CT myelogram. Pts pain was better tolerated on medication regimen, and he was ambulating well. Discharged home with ortho f/u this Friday. Chronic Systolic Heart Failure secondary to Ischemic Cardiomyopathy, EF 30-35% HTN HLD Hx Pulmonary Embolism DM Type 2 CKD, stage III - Home medications reviewed and reconciled, no medication changes. Added valium and ibuprofen PRN for pain and muscle spasms. 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 in the left and the right, symmetric Neuro: non-focal, moving all extremities Psych: cooperative, euthymic mood Patient Condition at Discharge: Good Plan - Discharge Summary Discharge Rx Participant: No New Discharge Prescriptions: New diazePAM [Valium] 2 mg PO TID PRN #60 tab PRN Reason: Muscle Spasm Ibuprofen [Motrin] 400 mg PO Q6HR PRN #60 tab PRN Reason: Mild Pain Or Fever > 100.5 Acetaminophen Tab [Tylenol] 650 mg PO Q6HR PRN tab PRN Reason: Mild Pain Or Fever > 100.5 Continue Atorvastatin [Lipitor] 40 mg PO HS Losartan [Cozaar] 50 mg PO DAILY carvediloL [Coreg] 6.25 mg PO BID Gabapentin [Neurontin] 300 mg PO BID Furosemide [Lasix] 40 mg PO BID Glimepiride [Amaryl] 1 mg PO DAILY Acetaminophen [Tylenol Arthritis] 650 mg PO BID traMADol HCL 50 mg PO BID calcium polycarbophiL [Fibercon] 625 mg PO DAILY calcitrioL [Calcitriol] 0.25 mcg PO FR Clotrimazole Cream [Lotrimin Cream] 1 applic TOPICAL BID Ammonium Lactate Cream [Lac-Hydrin 12% Cream] 1 applic TOPICAL BID Latanoprost/Pf [Latanoprost 0.005% Eye Drop] 1 drop BOTH EYES HS Dorzolamide-Timol 2.23%/0.68% [Cosopt] 1 drop BOTH EYES HS Cholecalciferol [Vitamin D3 (25 Mcg = 1000 Iu)] 50 mcg PO DAILY Allopurinol [Zyloprim] 100 mg PO BID No Action Apixaban [Eliquis] 5 mg PO BID Discharge Medication List Atorvastatin [Lipitor] 40 mg PO HS 01/07/17 [History] Losartan [Cozaar] 50 mg PO DAILY 03/22/19 [History] Gabapentin [Neurontin] 300 mg PO BID 01/10/20 [History] carvediloL [Coreg] 6.25 mg PO BID 01/10/20 [History] Acetaminophen [Tylenol Arthritis] 650 mg PO BID 03/20/20 [History] Apixaban [Eliquis] 5 mg PO BID 03/20/20 [History] Furosemide [Lasix] 40 mg PO BID 03/20/20 [History] Glimepiride [Amaryl] 1 mg PO DAILY 03/20/20 [History] traMADol HCL 50 mg PO BID 03/20/20 [History] calcium polycarbophiL [Fibercon] 625 mg PO DAILY 04/20/20 [History] Cholecalciferol [Vitamin D3 (25 Mcg = 1000 Iu)] 50 mcg PO DAILY 04/26/21 [History] calcitrioL [Calcitriol] 0.25 mcg PO FR 04/26/21 [History] Allopurinol [Zyloprim] 100 mg PO BID 07/16/21 [History] Ammonium Lactate Cream [Lac-Hydrin 12% Cream] 1 applic TOPICAL BID 07/16/21 [History] Clotrimazole Cream [Lotrimin Cream] 1 applic TOPICAL BID 07/16/21 [History] Dorzolamide-Timol 2.23%/0.68% [Cosopt] 1 drop BOTH EYES HS 07/16/21 [History] Latanoprost/Pf [Latanoprost 0.005% Eye Drop] 1 drop BOTH EYES HS 07/16/21 [History] Acetaminophen Tab [Tylenol] 650 mg PO Q6HR PRN tab 07/17/21 [Rx] Ibuprofen [Motrin] 400 mg PO Q6HR PRN #60 tab 07/17/21 [Rx] diazePAM [Valium] 2 mg PO TID PRN #60 tab 07/17/21 [Rx] Follow up Appointment(s)/Referral(s): Beltran Castillo MD [Primary Care Provider] - 1-2 days Fidencio Ardon DO [Doctor of Osteopathic Medicine] - 3 Days Patient Instructions/Handouts: Acute Low Back Pain (GEN) Activity/Diet/Wound Care/Special Instructions: Orthopedic discharge instructions: 1. Weight-bear as tolerated with walker 2. Take prescribed medications as instructed 2. Plan for follow-up with Dr. Ardon in the office on 07/20/2021 for further discussion of treatment options Discharge Disposition: HOME SELF-CARE
== END 2021-07-17 10:52 | disposition home or self-care (01) ==
LOC: EC 09:03 → 6NMEDSUR 10:49
PROVIDERS: ADMIT Internal Medicine; ATTEND Internal Medicine
DX: M62.830 Muscle spasm of back (principal); M62.838 Other muscle spasm; S13.130A Subluxation of C2/C3 cervical vertebrae, initial encounter; X50.9XXA Other and unspecified overexertion or strenuous movements or postures, initial encounter; M48.061 Spinal stenosis, lumbar region without neurogenic claudication; M47.812 Spondylosis without myelopathy or radiculopathy, cervical region; M47.816 Spondylosis without myelopathy or radiculopathy, lumbar region; I13.0 Hypertensive heart and chronic kidney disease with heart failure and stage 1 through stage 4 chronic kidney disease, or unspecified chronic kidney disease; I50.22 Chronic systolic (congestive) heart failure; N18.30 Chronic kidney disease, stage 3 unspecified; E11.22 Type 2 diabetes mellitus with diabetic chronic kidney disease; I25.5 Ischemic cardiomyopathy; E78.5 Hyperlipidemia, unspecified; I25.2 Old myocardial infarction; G89.29 Other chronic pain; M25.512 Pain in left shoulder; M25.511 Pain in right shoulder; K80.20 Calculus of gallbladder without cholecystitis without obstruction; D64.9 Anemia, unspecified; H40.9 Unspecified glaucoma; M10.9 Gout, unspecified; R53.1 Weakness; Z79.84 Long term (current) use of oral hypoglycemic drugs; Z79.01 Long term (current) use of anticoagulants; Z79.899 Other long term (current) drug therapy; Z88.0 Allergy status to penicillin; Z88.5 Allergy status to narcotic agent; Z88.8 Allergy status to other drugs, medicaments and biological substances; Z85.46 Personal history of malignant neoplasm of prostate; Z95.810 Presence of automatic (implantable) cardiac defibrillator; Z98.42 Cataract extraction status, left eye; Z98.41 Cataract extraction status, right eye; Z90.79 Acquired absence of other genital organ(s); Z87.891 Personal history of nicotine dependence; Z86.711 Personal history of pulmonary embolism; Z98.890 Other specified postprocedural states
CPT/HCPCS: 96376 ×2; 96374; 99285; 80048; 83735 ×2; 85025 ×2; 72125; 72131; G0378 ×2; J1885 ×2

== ENCOUNTER → 2021-08-08 | Outpatient (CLI) | payer MEDICARE, BC ==
[2021-08-08 14:39] LABS: HCT 35.2 % (39.6-50.0); HGB 10.6 g/dL (13.0-17.0); MCH 28.8 pg (27.0-32.0); MCHC 30.1 g/dL (32.0-37.0); MCV 95.7 fL (80.0-97.0); Mean Platelet Volume 11.5 fL (9.5-12.2); NRBC Per 100 WBC 0 /100 WBCS (0.0-0.0); Platelet Count 197 X 10*3/uL (140-440); RBC 3.68 X 10*6/uL (4.40-5.60); RDW 15.4 % (11.5-14.5); WBC 8.01 X 10*3/uL (4.50-10.00)
[2021-08-08 14:43] LABS: African American GFR (CKD) 21.6 (60.0-200.0); Anion Gap 12.4 mmol/L (10.00-18.00); BUN/Creat Ratio 18.28 Ratio (12.00-20.00); Blood Urea Nitrogen 55.4 mg/dL (9.0-27.0); Calcium 9.3 mg/dL (8.7-10.3); Carbon Dioxide 26.2 mmol/L (20.0-27.5); Non-African American GFR(CKD) 18.7 (60.0-200.0); Potassium 5.4 mmol/L (3.5-5.5)
== END | disposition home or self-care (01) ==
LOC: LABWHC1 07:04
PROVIDERS: ATTEND Internal Medicine Interventional Cardiology
DX: I25.10 Atherosclerotic heart disease of native coronary artery without angina pectoris (principal); I50.9 Heart failure, unspecified
CPT/HCPCS: 36415; 80048; 85027

== ENCOUNTER → 2021-08-27 | Outpatient (CLI) | payer MEDICARE, BC ==
[2021-08-27 12:56] VITALS: BP 143/84; PULSE 61; RESP 18; TEMP 98
--- NOTE | 2021-08-27 13:09 | P.PAINPG ---
PQRS Measure Charge Sheet Comment: HISTORY OF PRESENT ILLNESS: 81 yr old male with at side as a referral from Dr. Castillo presents today w severe and chronic cervical pain secondary to DDD and facet arthropathy for evaluation. Pt states his pain level is 10/10 in intensity, dull & achy in the lower aspect of his cervical spine with occasional radiation of sharp pain towards the top of his R shoulder. Sudden incremental movements exacerbate pain & spasms. Pain is relieved with medications slightly (Tylenol arthritis, Tramadol, Neurontin), up to a ice and heat, physical therapy for which she is currently in, repositioning and rest. PMH: CAD, Prostate CA, CHF, COPD, DM, R Glaucoma, Hyperlipidemia, HTN, GA (2017), aFib, OA, Pneumonia, Prostate Disorder, PE, ESRD PSH: AICD (2017), Back Surgery x2, Heart Catheterization With Stent, BL Hernia Repair, Pacemaker, TURP, BL Cataract Extraction SH: Negative x 3. Lives w jade single level home w 1 step to enter. Retired [employer] worker. FH: Mother- Unknown causes. Father- Unknown causes All: See list Meds: See list REVIEW OF ORGAN SYSTEMS: CONSTITUTIONAL: No fevers or chills. No recent weight loss. HEENT: No visual acuity loss, eye pain, difficulties with hearing. No nosebleeds. No difficulty swallowing. RESPIRATORY: Denies any troubles with breathing or dyspnea on exertion. CARDIOVASCULAR: Denies any chest pain, palpitations, or recent heart attacks. GASTROINTESTINAL: Denies fatty food intolerance. Has change in bowel habits and gas bloat. GENITOURINARY: Denies any blood in urine. Has increased urinary frequency. NEUROLOGICAL: + numbness and tingling along the distal extremities. No seizure disorders or headaches. MUSCULOSKELETAL: + back pain SKIN: No skin cancer. No rash. PSYCHIATRIC: Denies current depression or suicidal thoughts. ENDOCRINE: Denies current thyroid disorders. Denies any blood sugar glucose intolerance. HEME/LYMPHATIC: Denies any lumps and bumps around the neck. History of deep venous thrombosis. ALLERGY/IMMUNOLOGY: No immunoglobulin therapy. No immune deficiencies. BREAST: Denies current breast lumps, pain or nipple discharge. Physical Examinations : Constitutional : Cooperative , not in acute distress . HEENT: Neck supple. No Lymphadenopathy. Normal thyroid size . Eyes no ptosis , no icterus, no photophobia . Hearing intact. Normal oropharynx. No Thrush. Respiratory : Chest clear to auscultations bilaterally. No wheezing. No rhonchi. Cardiovascular : Regular rate and rhythm , S1 / S2. No S3 . No S4. Gastrointestinal : Abdomen soft. No tenderness. Bowel sounds x 4. No organomegaly . Genitourinary : Deferred. Neurologic : Cranial nerve II to XII intact. No focal neurological deficits. Psychiatric : alert & oriented x 3. Matching mood & appropriate affect. Judgment & insight intact. Lymphatic No Lymphadenopathy. Musculoskeletal : Cervical Spine Motor strength in the deltoid and biceps: Normal right side. Normal Left side Motor strength biceps and the wrist extensors: Normal right side . Normal left side Motor strength in the triceps muscle: Normal right side. Normal left side Deep tendon reflexes: Normal at the biceps. Normal at Brachioradialis. Normal at triceps Vertebral body tenderness to palpation over C5, C6 Cervical facet loading test: positive bilaterally Spurling test: positive R >L Neck distraction test: positive bilaterally Marilynn sign: positive bilaterally Lumbar spine Motor strength lower extremities ,thigh and legs 5/5 Right side , 5/5 Left side Deep tendon reflexes : Normal Knee Jerk. Normal Ankle Jerk Vertebral body tenderness over Lumbar facet Loading Test: positive Right / positive Left Range of motion of the lumbar spine Flexion 30 degrees, extension 10 degrees Straight Leg Raise test: Left/ Right positive at degree Stephanie test: positive right / positive left. Severe tenderness over the Sacroiliac joint on the Right / Left sides Gaenslen test: positive bilaterally Seated flexion test: positive bilaterally. Sacral spine : Severe tenderness over the Sacroiliac joint: right side / left side Range of motion: Flexion of the lumbar spine <60 degrees Range of motion: Extension of the lumbar spine <20 degrees Gaenslen's Test positive Rafael's Test positive Stephanie test: positive right side / left side Thigh Thrust Test Sacral Thrust Test Imaging: CT scan without contrast of the cervical spine from 07/16/21 reviewed Assessment/ Plan : Cervical DDD Recommendation of KAYLEY C5 to C6. May need a series of injections, up to 3 within a six-month timeframe, for optimal pain relief. Risks, benefits of procedure discussed and patient verbalized understanding. Admits to Eliquis use and a medical history of diabetes. Protocol for discontinuation/ continuation of medications madisyn procedure discussed. Need medical clearance from Dr Castillo. Diclofenac gel BID prn pain Disp 1 tube w 1 refill All questions answered. I have spent greater than 50 minutes on patient care today. Dr Anotn was available by phone for the evaluation of this patient. The time was used to review the medical records including relevant urine studies and Prescription history (MAPs), review of the available imaging, evaluation and examination of the patient, coordination of care with the medical staff and if applicable refer ring physicians, as well as creation of the medical record - Pain Location Bilateral Lower Neck Non-Pharmacological Interventions: Heat, Inactivity, Massage, Physical Therapy Pharmacological Interventions: PRN Medication, Scheduled Medication PQRS Narrative: Smoking Status Former smoker Home Medications: Ambulatory Orders Atorvastatin [Lipitor] 40 mg PO HS 01/07/17 Losartan [Cozaar] 50 mg PO DAILY 03/22/19 Gabapentin [Neurontin] 300 mg PO BID 01/10/20 carvediloL [Coreg] 6.25 mg PO BID 01/10/20 Acetaminophen [Tylenol Arthritis] 650 mg PO BID 03/20/20 Apixaban [Eliquis] 5 mg PO BID 03/20/20 Furosemide [Lasix] 40 mg PO BID 03/20/20 Glimepiride [Amaryl] 1 mg PO DAILY 03/20/20 traMADol HCL 50 mg PO BID 03/20/20 calcium polycarbophiL [Fibercon] 625 mg PO DAILY 04/20/20 Cholecalciferol [Vitamin D3 (25 Mcg = 1000 Iu)] 50 mcg PO DAILY 04/26/21 calcitrioL [Calcitriol] 0.25 mcg PO FR 04/26/21 Ammonium Lactate Cream [Lac-Hydrin 12% Cream] 1 applic TOPICAL BID 07/16/21 Clotrimazole Cream [Lotrimin Cream] 1 applic TOPICAL BID 07/16/21 Dorzolamide-Timol 2.23%/0.68% [Cosopt] 1 drop BOTH EYES HS 07/16/21 Latanoprost/Pf [Latanoprost 0.005% Eye Drop] 1 drop BOTH EYES HS 07/16/21 allopurinoL [Zyloprim] 100 mg PO BID 07/16/21 Acetaminophen Tab [Tylenol] 650 mg PO Q6HR PRN tab 07/17/21 Ibuprofen [Motrin] 400 mg PO Q6HR PRN #60 tab 07/17/21 diazePAM [Valium] 2 mg PO TID PRN #60 tab 07/17/21 Controlled Substance Measures - Controlled Substance Measures Is patient prescribed a controlled substance at discharge?: No
== END ==
LOC: PNWHC3 11:40
PROVIDERS: ATTEND Specialist
DX: M50.30 Other cervical disc degeneration, unspecified cervical region (principal); G89.29 Other chronic pain; I25.10 Atherosclerotic heart disease of native coronary artery without angina pectoris; J44.9 Chronic obstructive pulmonary disease, unspecified; E78.5 Hyperlipidemia, unspecified; I25.2 Old myocardial infarction; I48.91 Unspecified atrial fibrillation; M19.90 Unspecified osteoarthritis, unspecified site; I13.2 Hypertensive heart and chronic kidney disease with heart failure and with stage 5 chronic kidney disease, or end stage renal disease; E11.22 Type 2 diabetes mellitus with diabetic chronic kidney disease; N18.6 End stage renal disease; I50.9 Heart failure, unspecified; Z86.711 Personal history of pulmonary embolism; Z87.891 Personal history of nicotine dependence; Z79.84 Long term (current) use of oral hypoglycemic drugs; Z79.01 Long term (current) use of anticoagulants; Z79.1 Long term (current) use of non-steroidal anti-inflammatories (NSAID); Z79.899 Other long term (current) drug therapy; Z88.1 Allergy status to other antibiotic agents; Z88.8 Allergy status to other drugs, medicaments and biological substances; Z88.5 Allergy status to narcotic agent
CPT/HCPCS: 99211

== ENCOUNTER 2021-09-07 14:09 | Emergency (ER) | payer MEDICARE, BC ==
[2021-09-07 15:14] VITALS: TEMP 97.6
[2021-09-07] MEDS ORDERED: SODIUM CHLORIDE 0.9% 1,000 ML IV STA (18:40)
[2021-09-07] MEDS ORDERED: traMADol 50 MG TAB PO STA (18:49)
[2021-09-07] MEDS ORDERED: ACETAMINOPHEN TAB 500 MG TAB PO STA (18:50)
--- NOTE | 2021-09-07 19:05 | ED ---
General Adult HPI - General Chief complaint: Recheck/Abnormal Lab/Rx Stated complaint: Irregular labs Time Seen by Provider: 09/07/21 18:40 Source: patient, RN notes reviewed Mode of arrival: wheelchair Limitations: no limitations - History of Present Illness Initial comments: This is a pleasant 81-year-old male who presents to the emergency department with a chief complaint of hypernatremia. Patient had general screening laboratory work done this morning by his physician and was found to have a sodium of 155. Patient sent here for evaluation. Patient states he feels essentially at baseline. Patient has been eating and drinking normally. Normal amounts of urination and bowel movements. Patient does have a history of chronic pain and chronic renal failure. Patient also has a history of congestive heart failure, costochondritis, anxiety . Patient also has intermittent abdominal pains for several weeks. He is describing a burning sensation. He also states he gets burning and tingling sensations throughout his entire body. He denies any chest pain. : Chronic, generalized pain No headache, no fever or chills, no changes in vision or hearing, no sore throat or difficulty with speech, no neck pain, no chest pain or shortness of breath, no abdominal pain, no nausea or vomiting, no changes in urination or bowel movem ents, no numbness or tingling, no extremity pain, no skin rashes or lesions. - Related Data Home Medications Medication Instructions Recorded Confirmed Atorvastatin [Lipitor] 40 mg PO HS 01/07/17 08/27/21 Losartan [Cozaar] 50 mg PO DAILY 03/22/19 08/27/21 Gabapentin [Neurontin] 300 mg PO BID 01/10/20 08/27/21 carvediloL [Coreg] 6.25 mg PO BID 01/10/20 08/27/21 Acetaminophen [Tylenol Arthritis] 650 mg PO BID 03/20/20 08/27/21 Apixaban [Eliquis] 5 mg PO BID 03/20/20 08/27/21 Furosemide [Lasix] 40 mg PO BID 03/20/20 08/27/21 Glimepiride [Amaryl] 1 mg PO DAILY 03/20/20 08/27/21 traMADol HCL 50 mg PO BID 03/20/20 08/27/21 calcium polycarbophiL [Fibercon] 625 mg PO DAILY 04/20/20 08/27/21 Cholecalciferol [Vitamin D3 (25 50 mcg PO DAILY 04/26/21 08/27/21 Mcg = 1000 Iu)] calcitrioL [Calcitriol] 0.25 mcg PO FR 04/26/21 08/27/21 Ammonium Lactate Cream [Lac-Hydrin 1 applic TOPICAL BID 07/16/21 08/27/21 12% Cream] Clotrimazole Cream [Lotrimin Cream] 1 applic TOPICAL BID 07/16/21 08/27/21 Dorzolamide-Timol 2.23%/0.68% 1 drop BOTH EYES HS 07/16/21 08/27/21 [Cosopt] Latanoprost/Pf [Latanoprost 0.005% 1 drop BOTH EYES HS 07/16/21 08/27/21 Eye Drop] allopurinoL [Zyloprim] 100 mg PO BID 07/16/21 08/27/21 Previous Rx's Medication Instructions Recorded Acetaminophen Tab [Tylenol] 650 mg PO Q6HR PRN tab 07/17/21 Ibuprofen [Motrin] 400 mg PO Q6HR PRN #60 tab 07/17/21 diazePAM [Valium] 2 mg PO TID PRN #60 tab 07/17/21 Diclofenac Sodium Gel [Voltaren 100 gm TOPICAL BID 30 Days #100 gm 08/27/21 Gel] Nitrofurantoin Monohyd/M-Cryst 100 mg PO Q12HR #14 cap 09/07/21 [Macrobid] Allergies Allergy/AdvReac Type Severity Reaction Status Date / Time amoxicillin Allergy Severe Unknown- Verified 09/07/21 15:13 was hospitalized spironolactone Allergy Unknown Verified 09/07/21 15:13 hydrocodone bitartrate AdvReac Confusion Verified 09/07/21 15:13 [From Vicodin] Review of Systems ROS Statement: Those systems with pertinent positive or pertinent negative responses have been documented in the HPI. ROS Other: All systems not noted in ROS Statement are negative. Past Medical History Past Medical History: Cancer, Hyperlipidemia, Hypertension, Renal Disease Additional Past Medical History / Comment(s): Chronic Kidney Disease, right eye Glaucoma, hx prostate cancer with surgery, chronic neck, bilateral shoulder and back pain, hx Gout, fatty tumor on right back, gallstones. AR's in 1980 and 2016. Last Myocardial Infarction Date:: 10/18/16 History of Any Multi-Drug Resistant Organisms: None Reported Past Surgical History: Pacemaker Additional Past Surgical History / Comment(s): CARDIOVERSION, lumbar surgery X2, cervical epidural injections, bilateral inguinal hernia repairs, TURP, colonoscopy, bilateral cataract removals., Heart Cath 03/22/20 Past Anesthesia/Blood Transfusion Reactions: No Reported Reaction Date of Last Stent Placement:: 10/18/16 Type of Cardiac Device: AICD Device Placement Date:: 01-10-17 Past Psychological History: No Psychological Hx Reported Smoking Status: Former smoker Past Alcohol Use History: None Reported Past Drug Use History: None Reported - Past Family History Mother History Unknown: Yes Family Medical History: Unable to Obtain Additional Family Medical History / Comment(s): Mother of unknown cause. Father History Unknown: Yes Family Medical History: Unable to Obtain Additional Family Medical History / Comment(s): Father of unknown cause. General Exam - General Exam Comments Initial Comments: Nontoxic appearing male in no acute distress. Vital signs reviewed, patient appears be adequately hydrated Limitations: no limitations General appearance: alert, in no apparent distress Head exam: Present: atraumatic, normocephalic, normal inspection Eye exam: Present: normal appearance, PERRL, EOMI. Absent: scleral icterus, conjunctival injection, periorbital swelling ENT exam: Present: normal exam, mucous membranes moist Neck exam: Present: normal inspection. Absent: tenderness, meningismus, lymphadenopathy Respiratory exam: Present: normal lung sounds bilaterally. Absent: respiratory distress, wheezes, rales, rhonchi, stridor Cardiovascular Exam: Present: regular rate, normal rhythm, normal heart sounds. Absent: systolic murmur, diastolic murmur, rubs, gallop, clicks GI/Abdominal exam: Present: soft, normal bowel sounds. Absent: distended, tenderness, guarding, rebound, rigid Extremities exam: Present: normal inspection, full ROM, normal capillary refill. Absent: tenderness, pedal edema, joint swelling, calf tenderness Back exam: Present: normal inspection Neurological exam: Present: alert, oriented X3, CN II-XII intact Psychiatric exam: Present: normal affect, normal mood Skin exam: Present: warm, dry, intact, normal color. Absent: rash Course Vital Signs 09/07/21 09/07/21 15:10 19:58 Temperature 97.6 F Pulse Rate 74 78 Respiratory 18 22 Rate Blood Pressure 124/68 148/74 O2 Sat by Pulse 98 97 Oximetry - Reevaluation(s) Reevaluation #1: 09/07/21 19:54 Medical record is reviewed Repeat sodium level is 141. Patient is informed of results and questions answered Patient in no distress EKG Findings - EKG Comments: EKG Findings:: EKG done at 1913 and read by the supervising physician reveals sinus rhythm with a rate of 61. No evidence of acute ST or T-wave changes. There is some T-wave flattening in lead 3. Some baseline artifact. Normal axis. QTC is 460 ms. Other intervals are normal. Medical Decision Making - Medical Decision Making Patient presents for evaluation of hypernatremia. Sodium 155 on screening laboratory work was morning. Patient states she's never had a history of hypernatremia. Patient denies any changes in diet. No nausea or vomiting. No changes in urination or bowel movements. Patient states she's been hydrating adequately. Patient in no acute distress otherwise. Patient has chronic anemia and chronic renal failure Patient does show 6-10 white cells and red cells per high-powered field on urinalysis. 1+ bacteria. the patient is afebrile. Patient also patient's medical with regards to urination The case was discussed in detail with ED attending physician. Presentation, findings, treatment plan discussed in detail. C[employer] K[employer] Dr. Lopez - Lab Data Result diagrams: 09/07/21 18:53 09/07/21 18:53 Lab Results 09/07/21 09/07/21 09/07/21 Range/Units 18:53 18:53 18:53 WBC 5.3 (3.8-10.6) k/uL RBC 3.66 L (4.30-5.90) m/uL Hgb 10.9 L (13.0-17.5) gm/dL Hct 34.9 L (39.0-53.0) % MCV 95.2 (80.0-100.0) fL MCH 29.8 (25.0-35.0) pg MCHC 31.3 (31.0-37.0) g/dL RDW 15.6 H (11.5-15.5) % Plt Count 207 (150-450) k/uL MPV 8.2 Neutrophils % 63 % Lymphocytes % 21 % Monocytes % 8 % Eosinophils % 5 % Basophils % 0 % Neutrophils # 3.3 (1.3-7.7) k/uL Lymphocytes # 1.1 (1.0-4.8) k/uL Monocytes # 0.4 (0-1.0) k/uL Eosinophils # 0.2 (0-0.7) k/uL Basophils # 0.0 (0-0.2) k/uL Hypochromasia Moderate Sodium 141 (137-145) mmol/L Potassium 4.5 (3.5-5.1) mmol/L Chloride 109 H (98-107) mmol/L Carbon Dioxide 22 (22-30) mmol/L Anion Gap 10 mmol/L BUN 48 H (9-20) mg/dL Creatinine 2.56 H (0.66-1.25) mg/dL Est GFR (CKD-EPI)AfAm 26 (>60 ml/min/1.73 sqM) Est GFR (CKD-EPI)NonAf 23 (>60 ml/min/1.73 sqM) Glucose 79 (74-99) mg/dL Osmolality 310 H (280-301) mosm/kg Calcium 9.1 (8.4-10.2) mg/dL Phosphorus 4.6 H (2.5-4.5) mg/dL Magnesium 2.5 H (1.6-2.3) mg/dL Total Bilirubin 0.4 (0.2-1.3) mg/dL AST 26 (17-59) U/L ALT 14 (4-49) U/L Alkaline Phosphatase 105 (38-126) U/L Total Protein 7.7 (6.3-8.2) g/dL Albumin 4.2 (3.5-5.0) g/dL Lipase 187 (23-300) U/L Urine Color Yellow Urine Appearance Clear (Clear) Urine pH 5.0 (5.0-8.0) Ur Specific Sabael 1.017 (1.001-1.035) Urine Protein 1+ H (Negative) Urine Glucose (UA) Negative (Negative) Urine Ketones Negative (Negative) Urine Blood Small H (Negative) Urine Nitrite Negative (Negative) Urine Bilirubin Negative (Negative) Urine Urobilinogen <2.0 (<2.0) mg/dL Ur Leukocyte Esterase Large H (Negative) Urine RBC 5 (0-5) /hpf Urine WBC 25 H (0-5) /hpf Ur Squamous Epith Cells <1 (0-4) /hpf Hyaline Casts 4 H (0-2) /lpf Urine Mucus Rare H (None) /hpf Urine Osmolality (50-1400) mosm/kg 09/07/21 Range/Units 18:53 WBC (3.8-10.6) k/uL RBC (4.30-5.90) m/uL Hgb (13.0-17.5) gm/dL Hct (39.0-53.0) % MCV (80.0-100.0) fL MCH (25.0-35.0) pg MCHC (31.0-37.0) g/dL RDW (11.5-15.5) % Plt Count (150-450) k/uL MPV Neutrophils % % Lymphocytes % % Monocytes % % Eosinophils % % Basophils % % Neutrophils # (1.3-7.7) k/uL Lymphocytes # (1.0-4.8) k/uL Monocytes # (0-1.0) k/uL Eosinophils # (0-0.7) k/uL Basophils # (0-0.2) k/uL Hypochromasia Sodium (137-145) mmol/L Potassium (3.5-5.1) mmol/L Chloride (98-107) mmol/L Carbon Dioxide (22-30) mmol/L Anion Gap mmol/L BUN (9-20) mg/dL Creatinine (0.66-1.25) mg/dL Est GFR (CKD-EPI)AfAm (>60 ml/min/1.73 sqM) Est GFR (CKD-EPI)NonAf (>60 ml/min/1.73 sqM) Glucose (74-99) mg/dL Osmolality (280-301) mosm/kg Calcium (8.4-10.2) mg/dL Phosphorus (2.5-4.5) mg/dL Magnesium (1.6-2.3) mg/dL Total Bilirubin (0.2-1.3) mg/dL AST (17-59) U/L ALT (4-49) U/L Alkaline Phosphatase (38-126) U/L Total Protein (6.3-8.2) g/dL Albumin (3.5-5.0) g/dL Lipase (23-300) U/L Urine Color Urine Appearance (Clear) Urine pH (5.0-8.0) Ur Specific Sabael (1.001-1.035) Urine Protein (Negative) Urine Glucose (UA) (Negative) Urine Ketones (Negative) Urine Blood (Negative) Urine Nitrite (Negative) Urine Bilirubin (Negative) Urine Urobilinogen (<2.0) mg/dL Ur Leukocyte Esterase (Negative) Urine RBC (0-5) /hpf Urine WBC (0-5) /hpf Ur Squamous Epith Cells (0-4) /hpf Hyaline Casts (0-2) /lpf Urine Mucus (None) /hpf Urine Osmolality 489 (50-1400) mosm/kg Disposition Clinical Impression: Urinary tract infection, Chronic renal failure, Suspected condition not found, Encounter for removal of sutures Disposition: HOME SELF-CARE Condition: Good Instructions (If sedation given, give patient instructions): Urinary Tract Infection in Men (ED) Additional Instructions: Follow-up with your regular physician as directed. Return to the ER immediately if any symptoms worsen, new symptoms arise, or any other problems develop.Take t he antibiotics as directed. Follow-up with your regular physician as well as your agriculture laboratory technician. Is patient prescribed a controlled substance at d/c from ED?: No Referrals: Beltran Castillo MD [Primary Care Provider] - 1-2 days
[2021-09-07 19:35] LABS: Albumin 4.2 g/dL (3.5-5.0); Appearance,Urine Clear (Clear); Bilirubin,Urine Negative (Negative); Blood,Urine Small (Negative); Calcium 9.1 mg/dL (8.4-10.2); Color,Urine Yellow; Glucose,Urine (UA) Negative (Negative); Hyaline Casts,Urine 4 /lpf (0-2); Ketones,Urine Negative (Negative); Leukocyte Esterase,Urine Large (Negative); Magnesium 2.5 mg/dL (1.6-2.3); Mucus,Urine Rare /hpf; Nitrite,Urine Negative (Negative); Phosphorus 4.6 mg/dL (2.5-4.5); Potassium 4.5 mmol/L (3.5-5.1); Protein,Urine 1+ (Negative); RBC,Urine 5 /hpf (0-5); Specific Gravity,Urine 1.017 (1.001-1.035); Squamous Epithelial Cell,Urine <1 /hpf (0-4); Total Bilirubin 0.4 mg/dL (0.2-1.3); Total Protein 7.7 g/dL (6.3-8.2); Urobilinogen,Urine <2.0 mg/dL (<2.0); WBC,Urine 25 /hpf (0-5)
[2021-09-07 19:44] LABS: Basophils % (A) 0 %; Eosinophils # (A) 0.2 k/uL (0-0.7); Eosinophils % (A) 5 %; HCT 34.9 % (39.0-53.0); HGB 10.9 gm/dL (13.0-17.5); Hypochromasia Moderate; Lymphocytes # (A) 1.1 k/uL (1.0-4.8); Lymphocytes % (A) 21 %; MCH 29.8 pg (25.0-35.0); MCHC 31.3 g/dL (31.0-37.0); MCV 95.2 fL (80.0-100.0); Mean Platelet Volume 8.2; Monocytes # (A) 0.4 k/uL (0-1.0); Monocytes % (A) 8 %; Neutrophils # (A) 3.3 k/uL (1.3-7.7); Neutrophils % (A) 63 %; Platelet Count 207 k/uL (150-450); RBC 3.66 m/uL (4.30-5.90); RDW 15.6 % (11.5-15.5); WBC 5.3 k/uL (3.8-10.6)
[2021-09-07] MEDS ORDERED: NITROFURANTOIN MONOHYD/M-CRYST 100 MG CAP PO STA (19:53)
[2021-09-07 19:59] VITALS: BP 148/74; PULSE 78; RESP 22
== END 2021-09-07 20:22 | disposition home or self-care (01) ==
LOC: EC 14:09
DX: I13.0 Hypertensive heart and chronic kidney disease with heart failure and stage 1 through stage 4 chronic kidney disease, or unspecified chronic kidney disease (principal); N39.0 Urinary tract infection, site not specified; N18.9 Chronic kidney disease, unspecified; E87.0 Hyperosmolality and hypernatremia; I50.9 Heart failure, unspecified; E78.5 Hyperlipidemia, unspecified; I25.2 Old myocardial infarction; M10.9 Gout, unspecified; Z48.02 Encounter for removal of sutures; Z79.899 Other long term (current) drug therapy; Z88.0 Allergy status to penicillin; Z88.8 Allergy status to other drugs, medicaments and biological substances; Z88.5 Allergy status to narcotic agent; Z79.02 Long term (current) use of antithrombotics/antiplatelets
CPT/HCPCS: 36415; 80053; 81001; 83690; 83735; 83930; 83935; 84100; 85025; 87077; 87086; 87186; 93005; 96360; 99283

== ENCOUNTER → 2021-09-07 | Outpatient (CLI) | payer MEDICARE, BC ==
[2021-09-07 11:40] LABS: Basophils # (A) 0.04 X 10*3/uL (0.00-0.10); Basophils % (A) 0.6 %; Eosinophils # (A) 0.22 X 10*3/uL (0.04-0.35); Eosinophils % (A) 3.4 %; HCT 32.5 % (39.6-50.0); HGB 9.8 g/dL (13.0-17.0); Immature Grans, Automated 0.2 %; Lymphocytes # (A) 0.87 X 10*3/uL (0.90-5.00); Lymphocytes % (A) 13.6 %; MCH 28.5 pg (27.0-32.0); MCHC 30.2 g/dL (32.0-37.0); MCV 94.5 fL (80.0-97.0); Mean Platelet Volume 11.4 fL (9.5-12.2); Monocytes # (A) 0.61 X 10*3/uL (0.20-1.00); Monocytes % (A) 9.5 %; NRBC Per 100 WBC 0 /100 WBCS (0.0-0.0); Neutrophils # (A) 4.67 X 10*3/uL (1.80-7.70); Neutrophils % (A) 72.7 %; Platelet Count 210 X 10*3/uL (140-440); RBC 3.44 X 10*6/uL (4.40-5.60); RDW 15.2 % (11.5-14.5); WBC 6.42 X 10*3/uL (4.50-10.00)
[2021-09-07 11:50] LABS: % Iron Saturation 8.68 (15.00-50.00); Anion Gap 16.8 mmol/L (10.00-18.00); BUN/Creat Ratio 15.91 Ratio (12.00-20.00); Blood Urea Nitrogen 40.1 mg/dL (9.0-27.0); Calcium 9.2 mg/dL (8.7-10.3); Carbon Dioxide 23.3 mmol/L (20.0-27.5); Magnesium 2.4 mg/dL (1.5-2.4); Non-African American GFR(CKD) 23.3 (60.0-200.0); Phosphorus 4.1 mg/dL (2.4-5.1); Potassium 4.8 mmol/L (3.5-5.5); Uric Acid 5.9 mg/dL (3.7-8.7)
[2021-09-07 12:10] LABS: Ferritin 38.3 ng/mL (22.0-322.0)
[2021-09-07 12:47] LABS: Appearance,Urine Clear (Clear); Bilirubin,Urine Negative (Negative); Blood,Urine Small (Negative); Color,Urine Yellow (Yellow); Ketones,Urine Negative (Negative); Nitrite,Urine Negative (Negative); Specific Gravity,Urine 1.017 (1.001-1.030)
[2021-09-07 12:55] LABS: Bacteria,Urine 1+ /HPF (None Seen)
[2021-09-07 18:53] LABS: Protein/Creatinine Ratio,Urine 0.409 Ratio
== END | disposition home or self-care (01) ==
LOC: LABWHC1 07:02
PROVIDERS: ATTEND Internal Medicine
DX: E11.9 Type 2 diabetes mellitus without complications (principal); E55.9 Vitamin D deficiency, unspecified; E21.3 Hyperparathyroidism, unspecified; M10.9 Gout, unspecified; N39.0 Urinary tract infection, site not specified; D64.9 Anemia, unspecified; N18.4 Chronic kidney disease, stage 4 (severe); R80.9 Proteinuria, unspecified; R76.8 Other specified abnormal immunological findings in serum
CPT/HCPCS: 36415; 80048; 81001; 82040; 82306; 82570; 82728; 83036; 83540; 83550; 83735; 83883; 83970; 84100; 84156; 84550; 85025

== ENCOUNTER 2021-09-27 11:24 | Day surgery (SDC) | payer MEDICARE, BC ==
[~2021-09-27 11:24] MED LIST changes: -ACETAMINOPHEN TAB 500 MG TAB PO PRN; -HEPARIN SODIUM,PORCINE/PF 5,000 UNIT/0.5 ML SYRINGE SQ PRN; +LACTATED RINGERS 1,000 ML IV SCH; +LIDOCAINE 1% (10MG/ML) FOR IV START INTRADERMA PRN; -Pre Op ABX Message 1 EACH MISC MISCELLANE ONE
[2021-09-27 12:57] VITALS: RESP 16; TEMP 97.4
[2021-09-27 13:04] LABS: Glucose,Whole Blood 114 mg/dL (70-110)
[2021-09-27] MEDS ORDERED: fentaNYL (PF) 50 MCG/ML 2 ML AMP ONE (13:45)
[2021-09-27] MEDS ORDERED: IOPAMIDOL M200 10 ML VIAL ONE (13:45)
[2021-09-27] MEDS ORDERED: DEXAMETHASONE SOD PHOSPHATE 10 MG/ML 1 ML VIAL ONE (13:45)
[2021-09-27] MEDS ORDERED: MIDAZOLAM 2 MG/2 ML VIAL ONE (13:45)
--- NOTE | 2021-09-27 14:07 | P.PCN ---
Date of Procedure: 09/27/21 Procedure(s) Performed: . PROCEDURE 1. Cervical epidural steroid injection under fluoroscopic guidance, C5-6 (fluoroscopy images available in the radiology department ) 2. Cervical epidurogram. PREOPERATIVE DIAGNOSIS: 1- Cervical Degenerative Disc Diseases 2-cervical spondylosis with cervical Facet arthropathy without myelopathy POSTOPERATIVE DIAGNOSIS: : 1- Cervical Degenerative Disc Diseases , 2-cervical spondylosis with cervical Facet arthropathy without myelopathy ANESTHESIA: Monitored anesthesia care as per anesthesia department. EBL 0 PROCEDURE INDICATION: The patient with neck pain and radiculitis unresponsive to conservative treatment consents for procedure. PROCEDURE DESCRIPTION / TECHNIQUE: The patient was seen and identified in the preoperative area. Risks, benefits, complications, including but not limited to infections ,bleeding , allergic reactions to the medications ,and not complete pain releife, and alternatives were discussed with the patient, the patient agreed to proceed with the procedure and signed the consent. Patient was taken to the OR and time out was completed. The patient was placed in the prone position on the procedure table. A pillow was placed under the patients chest to increase the cervical interlaminar space. The cervical area was prepped and draped in the usual sterile fashion. Vital signs were closely monitored during the procedure. Conscious sedation was used during the procedure to decrease patients anxiety. Using anterior-posterior fluoroscopy, the C5-6 interlaminar space was identified and the skin over this site was marked and then infiltrated with 1% lidocaine subcutaneously. Subsequently, a 20-gauge 3-1/2-inch Tuohy epidural needle was inserted and advanced toward the epidural space by means of the ``hanging-drop technique and guided by AP and lateral fluoroscopy. The correct needle position in the epidural space was verified with the injection of 2 mL of the water soluble contrast dye Isovue-200 and observing an excellent epidurogram with the epidural spread of the dye, after negative aspiration for blood and CSF and in the absence of paresthesias. then, mixture containing 15 mg Dexamethasone and 2 ml of preservative-free normal saline injected and a washout of epidurogram was seen. Needle was withdrawn intact, skin was cleansed, and bandages were applied. Complications= none. Disposition= patient was placed in supine position and transferred to the recovery room area in stable condition and there was no evidence of upper or lower extremity motor or sensory deficit after the procedure patient was discharged from recovery room after discharge criteria met and home discharge instructions was given by the staff and patient will follow with the pain clinic in 2-4 weeks Patient use Eliquis ,and he held it for more than 72 hours.
[2021-09-27] MEDS ORDERED: LACTATED RINGERS 1,000 ML IV ONE (14:09)
[2021-09-27] MEDS ORDERED: IV FLUID CONTINUATION 600 ML IV ONE (14:09)
--- NOTE | 2021-09-27 14:15 | FL ---
Intraoperative/procedural fluoroscopic services were provided. Total fluoroscopy time is 3.7 seconds with a total of 1 submitted images to PACS. Please see the operative/procedural note for further deta ils.
[2021-09-27 14:28] VITALS: BP 146/71; PULSE 65
== END 2021-09-27 14:49 | disposition home or self-care (01) ==
LOC: ORPAIN 11:24
PROVIDERS: ATTEND Specialist
DX: M47.22 Other spondylosis with radiculopathy, cervical region (principal); M50.122 Cervical disc disorder at C5-C6 level with radiculopathy; I25.10 Atherosclerotic heart disease of native coronary artery without angina pectoris; E11.69 Type 2 diabetes mellitus with other specified complication; E78.5 Hyperlipidemia, unspecified; I12.9 Hypertensive chronic kidney disease with stage 1 through stage 4 chronic kidney disease, or unspecified chronic kidney disease; E11.22 Type 2 diabetes mellitus with diabetic chronic kidney disease; N18.9 Chronic kidney disease, unspecified; I25.2 Old myocardial infarction; Z95.810 Presence of automatic (implantable) cardiac defibrillator; Z85.46 Personal history of malignant neoplasm of prostate; Z88.0 Allergy status to penicillin; Z88.5 Allergy status to narcotic agent; Z88.8 Allergy status to other drugs, medicaments and biological substances; Z79.899 Other long term (current) drug therapy; Z79.01 Long term (current) use of anticoagulants; Z79.84 Long term (current) use of oral hypoglycemic drugs; Z79.1 Long term (current) use of non-steroidal anti-inflammatories (NSAID); Z87.891 Personal history of nicotine dependence
CPT/HCPCS: 62321; J2250; J1100; J3010; Q9966

== ENCOUNTER → 2021-10-03 | Outpatient (CLI) | payer MEDICARE, BC ==
[2021-10-03 14:03] VITALS: BP 148/70; PULSE 62; RESP 18; TEMP 98.1
--- NOTE | 2021-10-03 14:15 | P.PN ---
Subjective Progress Note Date: 10/03/21 This is followed visit for this 81 years old male with a chronic history of severe neck pain and low back pain, he diagnosed with degenerative disc disease cervical spine and cervical spondylosis with cervical facet arthropathy and patient had lumbar degenerative disc disease and lumbar spondylosis with lumbar facet arthropathy, recently we have done cervical epidural steroid injection patient had no benefit from and he continued to have severe neck pain, the pain is constant and increased with any activity interferes with the quality of, she'll continue to use Voltaren gel and he continued to use pain medication and tramadol 50 mg twice a day and Neurontin 300 mg twice a day and he reported that the current medications of for him minimal benefit, most of his problem currently severe intractable neck pain more prominent on the left side, he denies any fever or night sweats he denies any change in the bowel movements or urination and he reported that he did physical therapy in the past without any benefit he continue to use heat without any benefit Objective - Vital Signs Vital signs: Vital Signs Temp 98.1 F 10/03/21 13:53 Pulse 62 10/03/21 13:53 Resp 18 10/03/21 13:53 BP 148/70 10/03/21 13:53 Pulse Ox 100 10/03/21 13:53 FiO2 Intake & Output 10/02/21 10/03/21 10/03/21 18:59 06:59 18:59 Weight 99.79 kg - Exam Physical Examinations : -Constitutiona : Cooperative , not in acute distress . -HEENT : nech : supple , no Lymphadenopathy , normal thyroid size . : eyes : no ptosis , no icterus, no photophobia . - neurologic : Cranial nerve II to XII intact , no focal neurological deffecit . -psychatric : alert , oriented X 3 , appropriate affect , intact judgment and insight . -Lymphatic : no Lymphadenopathy . - musculoskeltal : Cervical Spine motor stregnth in the deltoid and biceps, normal right side , normal Left side motor stregnth biceps and the wrist extensors normal right side ,normal left side . motor stregnth in the triceps muscle . normal Right side , normal Left side deep tendon reflexes normal at the biceps , normal at Brachioradialis , normal at triceps. cervical facet loading test: Positive Bilaterally Spurling test= positive Right , positive left. Neck distraction test= positive Right , positive left. Marilynn sign= positive right, positive left . The years and multiple trigger point identified in the cervical paraspinal muscles bilaterally but more prominent on the left side Lumber spine moter stegnth lower extremities ,thigh and legs 5/5 Right side , 5/5 Left side deep tendon reflexes : normal Knee Jerk , normal ankle Jerk lumber facet Loading Test =positive Right , positive Left Range of motion of the lumbar spine Flexion 30 degrees, extension 10 degrees strait leg raising test = positive at degree Fabere test= positive Right , and positive LT . Sever tenderness over the Sacroiliac joint on the Right , and Left sides MRI of the cervical spine and lumbar spine reviewed Assessment and Plan Plan: Assessment and plan=1-cervical degenerative disc disease. 2-cervical spondylosis with cervical facet a rthropathy. 3-myofascial pain syndrome and cervical area. 4-lumbar spondylosis with lumbar facet arthropathy. 5-lumber degenerative disc disease. Current use of blood thinner ELIQUIS Patient could benefit from cervical epidural steroid injection C67 levels and he could benefit from an appointment injection cervical paraspinal muscles bilaterally, so patient could benefit from muscle relaxant Zanaflex 2 mg every 6 hours, she should continue his current medication and trunk 50 mg twice a day and Neurontin 300 mg BID, and had to hold ELIQUIS for 3 days before the procedure Time with Patient: Less than 30
== END ==
LOC: PNWHC3 12:42
PROVIDERS: ATTEND Specialist
DX: M50.30 Other cervical disc degeneration, unspecified cervical region (principal); M47.812 Spondylosis without myelopathy or radiculopathy, cervical region; M79.18 Myalgia, other site; M47.816 Spondylosis without myelopathy or radiculopathy, lumbar region; M51.36 Other intervertebral disc degeneration, lumbar region; Z79.01 Long term (current) use of anticoagulants; Z88.1 Allergy status to other antibiotic agents; Z88.5 Allergy status to narcotic agent; Z87.891 Personal history of nicotine dependence
CPT/HCPCS: 99211

== ENCOUNTER → 2021-10-05 | Outpatient (CLI) | payer MEDICARE, BC | END | disposition home or self-care (01) | LOC: RADCTMAIN 09:31 | PROVIDERS: ATTEND Orthopaedic Surgery | DX: R55 Syncope and collapse (principal) | CPT/HCPCS: 82565; 84520 ==

== ENCOUNTER → 2021-10-24 | Outpatient (CLI) | payer MEDICARE, BC | END | disposition home or self-care (01) | LOC: RADCTMAIN 13:03 | PROVIDERS: ATTEND Orthopaedic Surgery | DX: R55 Syncope and collapse (principal) | CPT/HCPCS: 82565; 84520 ==

== ENCOUNTER 2021-11-11 09:56 | Inpatient (IN) | payer MEDICARE, BC ==
[2021-11-11 10:24] LABS: Anisocytosis Slight; Basophils % (A) 0 %; Eosinophils # (A) 0.2 k/uL (0-0.7); Eosinophils % (A) 3 %; HCT 27.4 % (39.0-53.0); Hypochromasia Marked; Lymphocytes % (A) 15 %; MCH 27.5 pg (25.0-35.0); MCHC 30.1 g/dL (31.0-37.0); MCV 91.5 fL (80.0-100.0); Mean Platelet Volume 8.5; Monocytes # (A) 0.4 k/uL (0-1.0); Monocytes % (A) 7 %; Neutrophils # (A) 4.7 k/uL (1.3-7.7); Neutrophils % (A) 73 %; Platelet Count 170 k/uL (150-450); RDW 16.4 % (11.5-15.5); WBC 6.5 k/uL (3.8-10.6)
[2021-11-11 10:33] LABS: INR 1.1 (<1.2); Partial Thromboplastin Time 27.1 sec (22.0-30.0); Prothrombin Time 11.5 sec (9.0-12.0)
[2021-11-11 10:34] LABS: Albumin 3.2 g/dL (3.5-5.0); Calcium 8.1 mg/dL (8.4-10.2); Potassium 4.5 mmol/L (3.5-5.1); Total Bilirubin 0.3 mg/dL (0.2-1.3)
[2021-11-11 10:35] LABS: HGB 8.2 gm/dL (13.0-17.5)
--- NOTE | 2021-11-11 10:44 | ED ---
General Adult HPI - General Chief complaint: Syncope Stated complaint: syncope Time Seen by Provider: 11/11/21 10:03 Source: patient, EMS Mode of arrival: EMS Limitations: no limitations - History of Present Illness Initial comments: Dictation was produced using [employer] dictation software. please excuse any grammatical, word or spelling errors. Chief Complaint: 81-year-old male presents to the emergency department after syncope History of Present Illness: 81-year-old male he has past medical history of diabetes, dyslipidemia hypertension MRI. Patient is a poor historian. According to nurse who received report from EMS [place] he was found unconscious in a chair. He was allegedly unconscious for about 5 minutes. Upon EMS arrival patient's blood pressure is 81/41, received IV fluids with improvement of his blood pressure. Patient states he's been feeling weak for the past 3 days. Patient states that he hurts all over. Denies any constitutional symptoms The ROS documented in this emergency department record has been reviewed and confirmed by me. Those systems with pertinent positive or negative responses have been documented in the HPI. All other systems are other negative and/or noncontributory. PHYSICAL EXAM: General Impression: Alert and oriented x3, not in acute distress HEENT: Normocephalic atraumatic, extra-ocular movements intact, pupils equal and reactive to light bilaterally, mucous membranes moist. Cardiovascular: Heart regular rate and rhythm Chest: Able to complete full sentences, no retractions, no tachypnea Abdomen: abdomen soft, non-tender, non-distended, no organomegaly Musculoskeletal: Pulses present and equal in all extremities, no peripheral edema Motor: no focal deficits noted Neurological: CN II-XII grossly intact, no focal motor or sensory deficits noted Skin: Intact with no visualized rashes Psych: Normal affect and mood ED course: 81-year-old male presents emergency department for alleged syncopal episode. His multiple comorbidities. Vital Signs upon arrival are within acceptable limits. Laboratory evaluation obtained. Hemoglobin is 8.2. This appears to be diminished according to EMR from 2 months ago which was 10.9. Patient denies any black or bloody stools. Coag panel is unremarkable. Metabolic panel shows chronic kidney disease. Rest of labs unremarkable. Pierre blood is negative. 4 panel viral PCR is negative. Computed tomography scan of the head and C-spine shows no acute processes. Patient denies any lower back pain. No concern for retroperitoneal hematoma. He does take anticoagulation. At this point simply was causing patient's anemia. However given patient's syncopal episode with extensive cardiac history we'll be admitted with cardiac monitoring and cardiology consultation. Patient mid to [facility]. EKG interpretation: Ventricular rate 55, H or paced rhythm,. Interval to 20, QRS 127, QTc 509. No MT prolongation, no QTC prolongation, no ST or T-wave changes noted. EKG compared to 09/07/2021 showing no changes. Overall, this EKG is unremarkable - Related Data Home Medications Medication Instructions Recorded Confirmed Atorvastatin [Lipitor] 40 mg PO HS 01/07/17 09/27/21 Losartan [Cozaar] 25 mg PO DAILY 03/22/19 09/27/21 Gabapentin [Neurontin] 300 mg PO BID 01/10/20 09/27/21 carvediloL [Coreg] 12.5 mg PO BID 01/10/20 09/27/21 Acetaminophen [Tylenol Arthritis] 650 mg PO BID 03/20/20 09/27/21 Apixaban [Eliquis] 5 mg PO BID 03/20/20 09/26/21 Furosemide [Lasix] 40 mg PO BID 03/20/20 09/27/21 Glimepiride [Amaryl] 1 mg PO AC-LUNCH 03/20/20 09/27/21 traMADol HCL 50 mg PO BID 03/20/20 09/27/21 calcium polycarbophiL [Fibercon] 625 mg PO DAILY 04/20/20 09/27/21 Cholecalciferol [Vitamin D3 (25 50 mcg PO DAILY 04/26/21 09/27/21 Mcg = 1000 Iu)] calcitrioL [Calcitriol] 0.25 mcg PO FR 04/26/21 09/27/21 Ammonium Lactate Cream [Lac-Hydrin 1 applic TOPICAL BID 07/16/21 09/27/21 12% Cream] Clotrimazole Cream [Lotrimin Cream] 1 applic TOPICAL BID 07/16/21 09/27/21 Dorzolamide-Timol 2.23%/0.68% 1 drop BOTH EYES HS 07/16/21 09/27/21 [Cosopt] Latanoprost/Pf [Latanoprost 0.005% 1 drop BOTH EYES HS 07/16/21 09/27/21 Eye Drop] allopurinoL [Zyloprim] 200 mg PO DAILY 07/16/21 09/27/21 Alpha Lipoic Acid 600 mg PO DAILY 09/26/21 09/27/21 Previous Rx's Medication Instructions Recorded Diclofenac Sodium Gel [Voltaren 100 gm TOPICAL BID 30 Days #100 gm 08/27/21 Gel] tiZANidine [Zanaflex] 2 mg PO Q6HR PRN 30 Days #120 tab 10/03/21 tiZANidine [Zanaflex] 2 mg PO Q6HR PRN 30 Days #120 tab 10/03/21 HYDROcodone/APAP 5-325MG [[place] 1 tab PO Q4HR PRN 3 Days #18 tab 11/08/21 5-325] Allergies Allergy/AdvReac Type Severity Reaction Status Date / Time amoxicillin Allergy Severe Unknown- Verified 09/27/21 13:00 was hospitalized spironolactone Allergy Unknown Verified 09/27/21 13:00 hydrocodone bitartrate AdvReac Confusion Verified 09/27/21 13:00 [From Vicodin] Review of Systems ROS Statement: Those systems with pertinent positive or pertinent negative responses have been documented in the HPI. ROS Other: All systems not noted in ROS Statement are negative. Past Medical History Past Medical History: Cancer, Diabetes Mellitus, Hyperlipidemia, Hypertension, Myocardial Infarction ([place]), Prostate Disorder, Renal Disease Additional Past Medical History / Comment(s): Chronic Kidney Disease, right eye Glaucoma, hx prostate cancer with surgery, chronic neck, bilateral shoulder and back pain, hx Gout, fatty tumor on right back, gallstones. [place]'s in 1980 and 2016. Last Myocardial Infarction Date:: 2016 History of Any Multi-Drug Resistant Organisms: None Reported Past Surgical History: AICD, Back Surgery, Heart Catheterization, Hernia Repair, Pacemaker Additional Past Surgical History / Comment(s): CARDIOVERSION, lumbar surgery X2, cervical epidural injections, bilateral inguinal hernia repairs, TURP, colonoscopy, bilateral cataract removals., Heart Cath 03/22/20 Past Anesthesia/Blood Transfusion Reactions: No Reported Reaction Date of Last Stent Placement:: 10/18/16 Type of Cardiac Device: AICD Device Placement Date:: 01-10-17 Past Psychological History: No Psychological Hx Reported Smoking Status: Former smoker Past Alcohol Use History: None Reported Past Drug Use History: None Reported - Past Family History Mother History Unknown: Yes Family Medical History: Unable to Obtain Additional Family Medical History / Comment(s): Mother of unknown cause. Father History Unknown: Yes Family Medical History: Unable to Obtain Additional Family Medical History / Comment(s): Father of unknown cause. General Exam Limitations: no limitations Course Vital Signs 11/11/21 11/11/21 09:58 10:49 Temperature 97.4 F L Pulse Rate 55 L 65 Respiratory 18 18 Rate Blood Pressure 104/51 128/65 O2 Sat by Pulse 94 L 95 Oximetry Medical Decision Making - Lab Data Result diagrams: 11/11/21 10:17 11/11/21 10:17 Lab Results 11/11/21 11/11/21 11/11/21 Range/Units 10:17 10:17 10:17 WBC 6.5 (3.8-10.6) k/uL RBC 3.00 L (4.30-5.90) m/uL Hgb 8.2 L D (13.0-17.5) gm/dL Hct 27.4 L (39.0-53.0) % MCV 91.5 (80.0-100.0) fL MCH 27.5 (25.0-35.0) pg MCHC 30.1 L (31.0-37.0) g/dL RDW 16.4 H (11.5-15.5) % Plt Count 170 (150-450) k/uL MPV 8.5 Neutrophils % 73 % Lymphocytes % 15 % Monocytes % 7 % Eosinophils % 3 % Basophils % 0 % Neutrophils # 4.7 (1.3-7.7) k/uL Lymphocytes # 1.0 (1.0-4.8) k/uL Monocytes # 0.4 (0-1.0) k/uL Eosinophils # 0.2 (0-0.7) k/uL Basophils # 0.0 (0-0.2) k/uL Hypochromasia Marked Anisocytosis Slight PT 11.5 (9.0-12.0) sec INR 1.1 (<1.2) APTT 27.1 (22.0-30.0) sec Sodium 137 (137-145) mmol/L Potassium 4.5 (3.5-5.1) mmol/L Chloride 107 (98-107) mmol/L Carbon Dioxide 20 L (22-30) mmol/L Anion Gap 10 mmol/L BUN 38 H (9-20) mg/dL Creatinine 2.48 H (0.66-1.25) mg/dL Est GFR (CKD-EPI)AfAm 28 (>60 ml/min/1.73 sqM) Est GFR (CKD-EPI)NonAf 24 (>60 ml/min/1.73 sqM) Glucose 148 H (74-99) mg/dL Calcium 8.1 L (8.4-10.2) mg/dL Magnesium 2.0 (1.6-2.3) mg/dL Total Bilirubin 0.3 (0.2-1.3) mg/dL AST 17 (17-59) U/L ALT 11 (4-49) U/L Alkaline Phosphatase 91 (38-126) U/L Troponin I (0.000-0.034) ng/mL Total Protein 6.0 L (6.3-8.2) g/dL Albumin 3.2 L (3.5-5.0) g/dL Stool Occult Blood (Negative) Influenza Type A (PCR) (Not Detectd) Influenza Type B (PCR) (Not Detectd) RSV (PCR) (Not Detectd) SARS-CoV-2 (PCR) (Not Detectd) 11/11/21 11/11/21 11/11/21 Range/Units 10:17 10:17 10:49 WBC (3.8-10.6) k/uL RBC (4.30-5.90) m/uL Hgb (13.0-17.5) gm/dL Hct (39.0-53.0) % MCV (80.0-100.0) fL MCH (25.0-35.0) pg MCHC (31.0-37.0) g/dL RDW (11.5-15.5) % Plt Count (150-450) k/uL MPV Neutrophils % % Lymphocytes % % Monocytes % % Eosinophils % % Basophils % % Neutrophils # (1.3-7.7) k/uL Lymphocytes # (1.0-4.8) k/uL Monocytes # (0-1.0) k/uL Eosinophils # (0-0.7) k/uL Basophils # (0-0.2) k/uL Hypochromasia Anisocytosis PT (9.0-12.0) sec INR (<1.2) APTT (22.0-30.0) sec Sodium (137-145) mmol/L Potassium (3.5-5.1) mmol/L Chloride (98-107) mmol/L Carbon Dioxide (22-30) mmol/L Anion Gap mmol/L BUN (9-20) mg/dL Creatinine (0.66-1.25) mg/dL Est GFR (CKD-EPI)AfAm (>60 ml/min/1.73 sqM) Est GFR (CKD-EPI)NonAf (>60 ml/min/1.73 sqM) Glucose (74-99) mg/dL Calcium (8.4-10.2) mg/dL Magnesium (1.6-2.3) mg/dL Total Bilirubin (0.2-1.3) mg/dL AST (17-59) U/L ALT (4-49) U/L Alkaline Phosphatase (38-126) U/L Troponin I <0.012 (0.000-0.034) ng/mL Total Protein (6.3-8.2) g/dL Albumin (3.5-5.0) g/dL Stool Occult Blood Negative (Negative) Influenza Type A (PCR) Not Detected (Not Detectd) Influenza Type B (PCR) Not Detected (Not Detectd) RSV (PCR) Not Detected (Not Detectd) SARS-CoV-2 (PCR) Not Detected (Not Detectd) Disposition Clinical Impression: Syncope Disposition: ADMITTED IP TO THIS [facility] Condition: Fair Referrals: Beltran Castillo MD [Primary Care Provider] - 1-2 days Decision Time: 11:48
[2021-11-11] MEDS ORDERED: SODIUM CHLORIDE 0.9% 500 ML 500 ML IV STA (11:19)
--- NOTE | 2021-11-11 11:23 | CT ---
EXAMINATION TYPE: CT brain cspine wo con CT DLP: 1679.5 mGycm, Automated exposure control for dose reduction was used. DATE OF EXAM: 11/11/2021 11:14 AM COMPARISON: CT cervical spine 07/16/2021, CT brain 01/02/2020. CLINICAL INDICATION:Male, 81 years old with history of Syncope TECHNIQUE: Brain: Multiple axial CT images of the brain were obtained without IV contrast. Cspine: Axial CT images from the skull base to the inferior aspect of T2 we obtained without intraven ous contrast. Coronal and sagittal reformatted images were also reviewed. FINDINGS: Brain: Extra-axial spaces: No abnormal extra-axial fluid collections. Ventricular system: Within normal limits Cerebral parenchyma: No acute intraparenchymal hemorrhage or mass effect. The bateman-white junction is well differentiated. Scattered hypoattenuating areas are seen within the white matter. Cerebellum: Unremarkable. Mass effect: No evidence of midline shift. Intracranial vasculature: Atherosclerotic calcifications of the intracranial vessels. Soft tissues: Normal. Calvarium/osseous structures: No depressed skull fracture. Paranasal sinuses and mastoid air cells: Mild mucosal thickening of the left maxillary sinus. Mastoid air cells are clear. Visualized orbits: Bilateral aphakia Cervical spine: Fracture: None. Osseous structures: Multilevel degenerative disc disease changes with endplate spurring and disc oste ophyte complex's. Multilevel facet arthropathy. Vertebral alignment: Stable grade 1 anterolisthesis of C2 on C3. Spinal canal/Neural Foramina: Multilevel disc osteophyte complexes with at least mild spinal canal st enosis. Facet joint uncovertebral joint arthropathy scattered throughout the cervical spine with vary ing degrees of neural foraminal stenosis. Neck soft tissues: Prevertebral soft tissues are within normal limits. Other: The airway is patent. Subpleural patchy reticular opacities within the visualized lungs. Vascu lar sclerosis. Medial deviation of the bilateral internal carotid arteries. Partial visualization of cardiac pacemaking leads. IMPRESSION: 1. No acute intracranial process. 2. Nonspecific white matter changes, likely secondary to chronic small vessel ischemic disease. 3. No evidence of cervical spine fracture. 4. Moderate multilevel degenerative disc disease. 5. Stable grade 1 anterolisthesis of C2 on C3.
[2021-11-11] MEDS ORDERED: NALOXONE 0.4 MG/ML 1 ML VIAL IV PRN (11:44)
[2021-11-11 13:57] LABS: Glucose,Whole Blood 129 mg/dL (70-110)
--- NOTE | 2021-11-11 16:56 | P.HPIM ---
History of Present Illness H&P Date: 11/11/21 Patient is a 81-year-old with diabetes, hypertension, dyslipidemia, coronary artery disease status post PCI, systolic cardiomyopathy with ejection fraction 25-30% on most recent echo April 2020 status post AICD implantation who presented to the hospital with complaints of a syncopal episode. In arrival to the ER he was found to have a heart rate of 55, blood pressure 104/51, and O2 sat of 94% on room air. Initial laboratory analysis showed hemoglobin of 8.2, BUN 38, creatinine 2.48 which appears slightly above his baseline of 2.2-2.5, troponin was negative. Influenza, COVID, and RSV testing were negative. Fecal occult blood was negative. Review of ER charting patient had been found unconscious in a chair at a local [employer]. Upon EMS arrival his blood pressure was 81/41. An IV was started and he was given IV fluids. Patient seen and examined at bedside. 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 He reports that he has chronic fatigue with minimal exertion which has been ongoing for months. He had been setting of his boot and does for 5 things and then takes a rest. It then got significant where he was so tired and exhausted he could only do one thing at a time. He remembers sitting down in the chair. The next thing he remembers is his and his boot neighbor shaking him awake. He states that over the last several weeks he has been experiencing feelings of "failure" when ambulating. They're mostly in his legs after ambulating short distances, however sometimes he feels a "fire" like feeling in his stomach after ambulating. He denies any significant shortness of breath or chest pain with this. He reports that he suffers from chronic back, neck, and right shoulder pain which is unrelenting. He had been getting worked up by Dr. Ardon who told him he was not a candidate for surgery due to his underlying medical condition. He follows with Dr. sharif last saw him several months ago, he lost saw Dr. Zuñiga within the last 3 months. He reports he wasn't following with pain management. He was r ecently prescribed hydrocodone. He has been taking it only 3 times a day but was told to take every 4-6 hours. His has been asking him to stop taking it. He has been very tired and sleeping a lot since guarding on this medication. He denies any recent cough, cold, fever, flu, nausea, vomiting, diarrhea. Pertinent positives and negatives as discussed in HPI, a complete review of systems was performed and all other systems are negative. Vital signs reviewed General: nontoxic, no distress, appears at stated age Derm: warm, dry Head: atraumatic, normocephalic, symmetric Eyes: EOMI, no lid lag, anicteric sclera, pupils equal round reactive to light ENT: Nose and ears atraumatic, no thrush, no pharyngeal erythema Neck: No thyromegaly, no cervical lymphadenopathy, trachea midline, supple Mouth: no lip lesion, mucus membranes moist Cardiovascular: S1S2 reg, no murmur, positive posterior tibial pulse bilateral, no edema, capillary refill less than 2 seconds Lungs: clear to auscultation bilateral, no rhonchi, no rales, no wheeze, no accessory muscle use Abdominal: soft, nontender to palpation, no guarding, no appreciable organomegaly, normal bowel sounds Ext: no gross muscle atrophy, muscle strength 5 out of 5 in all 4 extremities, no contractures Neuro: CN II-XII grossly intact, light touch intact all 4 extremities, finger to nose within normal limits, Psych: Alert, oriented, appropriate affect Assessment/Plan: Syncope Bradycardia Chronic Pain on multiple controlled substances - consult cardio -Orthostatics negative - check echo - tele - interrogate ICD - await results - hold coreg - hold noro and tizanidine - conitnue with ultram and gabapentin Hypothermia - undetermined cause - Check TSH, cortisol Anemia - check B 12, folate, TSH, and iron studies - follow CBC - FOB Compensated Systolic CHF with EF 25-30% HTN HLD - Hypotensive with EMS - Hold lasix, losartan, and coreg CKD IV - at baseline - monitor Cr DM - hold orals - SSI - follow BP The patient is admitted with an anticipated less than 2 midnight stay for evaluation of syncope. Surrogate decision-maker: DVT prophylaxis: Hamzah Discussed with: Patient, nursing Anticipated discharge date: in 1-[address]: home A total of [65] minutes was spent on the care of this complex patient more than 50% of the time was spent in counseling and care coordination. Past Medical History Past Medical History: Cancer, Heart Failure, Diabetes Mellitus, Hyperlipidemia, Hypertension, Myocardial Infarction ([place]), Prostate Disorder, Pulmonary Embolus ([place]), Renal Disease Additional Past Medical History / Comment(s): hx prostate cancer with surgery, chronic neck, bilateral shoulder and back pain, hx Gout, fatty tumor on right back, gallstones. [place]'s in 1981 and 2017. Ventricular Tachycardia. Ischemic Cardiomyopathy, left lung pulmonary embolism, non-dependent diabetes mellitus type 2, neuropathy b/l LE, chronic kidney disease stage IV, diverticular disease, gout, glaucoma right eye, congestive heart failure, hypertension, dyslipidemia, coronary artery disease Last Myocardial Infarction Date:: 2016 History of Any Multi-Drug Resistant Organisms: None Reported Past Surgical History: AICD, Back Surgery, Heart Catheterization, Hernia Repair, Pacemaker Additional Past Surgical History / Comment(s): CARDIOVERSION, lumbar surgery X2, cervical epidural injections, bilateral inguinal hernia repairs, TURP, colonoscopy, bilateral cataract removals., Heart Cath 03/22/20 Past Anesthesia/Blood Transfusion Reactions: No Reported Reaction Date of Last Stent Placement:: 10/18/16 Type of Cardiac Device: AICD Device Placement Date:: 01-10-17 Past Psychological History: No Psychological Hx Reported Smoking Status: Former smoker Past Alcohol Use History: None Reported Past Drug Use History: None Reported - Past Family History Mother History Unknown: Yes Additional Family Medical History / Comment(s): Mother of unknown cause. Father History Unknown: Yes Additional Family Medical History / Comment(s): Father of unknown cause. Medications and Allergies Home Medications Medication Instructions Recorded Confirmed Type Atorvastatin [Lipitor] 40 mg PO HS 01/07/17 11/11/21 History Losartan [Cozaar] 50 mg PO DAILY 03/22/19 11/11/21 History Gabapentin [Neurontin] 300 mg PO BID 01/10/20 11/11/21 History carvediloL [Coreg] 12.5 mg PO BID 01/10/20 11/11/21 History Apixaban [Eliquis] 5 mg PO BID 03/20/20 11/11/21 History Furosemide [Lasix] 40 mg PO BID 03/20/20 11/11/21 History Glimepiride [Amaryl] 1 mg PO AC-LUNCH 03/20/20 11/11/21 History traMADol HCL 50 mg PO BID 03/20/20 11/11/21 History calcitrioL [Calcitriol] 0.25 mcg PO FR 04/26/21 11/11/21 History allopurinoL [Zyloprim] 200 mg PO DAILY 07/16/21 11/11/21 History Diclofenac Sodium Gel [Voltaren 100 gm TOPICAL BID 30 Days #100 gm 08/27/21 11/11/21 Rx Gel] tiZANidine [Zanaflex] 2 mg PO Q6HR PRN 30 Days #120 tab 10/03/21 11/11/21 Rx HYDROcodone/APAP 5-325MG [[place] 1 tab PO Q4HR PRN 3 Days #18 tab 11/08/2111/11 Rx 5-325] Ammonium Lactate Lotion 1 applic TOPICAL BID 11/11/21 11/11/21 History [Lac-Hydrin 12% Lotion] Allergies Allergy/AdvReac Type Severity Reaction Status Date / Time amoxicillin Allergy Severe Unknown- Verified 09/27/21 13:00 was hospitalized spironolactone Allergy Unknown Verified 09/27/21 13:00 hydrocodone bitartrate AdvReac Confusion Verified 09/27/21 13:00 [From Vicodin] Physical Exam Osteopathic Statement: *. No significant issues noted on an osteopathic structural exam other than those noted in the History and Physical/Consult. Vitals: Vital Signs Temp Pulse Resp BP Pulse Ox 11/11/21 12:04 54 L 18 175/89 98 11/11/21 10:49 65 18 128/65 95 11/11/21 09:58 97.4 F L 55 L 18 104/51 94 L Intake and Output 11/10/21 11/11/21 11/11/21 22:59 06:59 14:59 Other: Weight 108.862 kg Results CBC & Chem 7: 11/11/21 10:17 11/11/21 10:17 Labs: Abnormal Lab Results - Last 24 Hours (Table) 11/11/21 11/11/21 Range/Units 10:17 10:17 RBC 3.00 L (4.30-5.90) m/uL Hgb 8.2 L D (13.0-17.5) gm/dL Hct 27.4 L (39.0-53.0) % MCHC 30.1 L (31.0-37.0) g/dL RDW 16.4 H (11.5-15.5) % Carbon Dioxide 20 L (22-30) mmol/L BUN 38 H (9-20) mg/dL Creatinine 2.48 H (0.66-1.25) mg/dL Glucose 148 H (74-99) mg/dL Calcium 8.1 L (8.4-10.2) mg/dL Total Protein 6.0 L (6.3-8.2) g/dL Albumin 3.2 L (3.5-5.0) g/dL
[2021-11-11 17:28] LABS: Glucose,Whole Blood 85 mg/dL (70-110)
[2021-11-11] MEDS: SODIUM CHLORIDE 0.9% 1,000 ML IV SCH (17:43)
[2021-11-11] MEDS: GABAPENTIN 300 MG CAP PO SCH (19:49)
[2021-11-11] MEDS: APIXABAN 5 MG TAB PO SCH (19:49)
[2021-11-11] MEDS: ACETAMINOPHEN TAB 325 MG TAB PO PRN (19:49)
[2021-11-11] MEDS: ATORVASTATIN 40 MG TAB PO SCH (19:49)
[2021-11-11 23:11] LABS: Glucose,Whole Blood 82 mg/dL (70-110)
[2021-11-12] MEDS: ACETAMINOPHEN TAB 325 MG TAB PO PRN (03:37)
[2021-11-12 04:06] LABS: Anisocytosis Slight; HCT 30.1 % (39.0-53.0); HGB 9.1 gm/dL (13.0-17.5); Hypochromasia Marked; MCH 27.3 pg (25.0-35.0); MCHC 30.2 g/dL (31.0-37.0); MCV 90.4 fL (80.0-100.0); Mean Platelet Volume 9.4; Platelet Count 175 k/uL (150-450); RBC 3.33 m/uL (4.30-5.90); RDW 16.4 % (11.5-15.5); WBC 7.4 k/uL (3.8-10.6)
[2021-11-12 04:26] LABS: African American GFR (CKD) 35 (>60 ml/min/1.73 sqM); Anion Gap 12 mmol/L; Blood Urea Nitrogen 36 mg/dL (9-20); Calcium 8.9 mg/dL (8.4-10.2); Carbon Dioxide 19 mmol/L (22-30); Chloride 108 mmol/L (98-107); Glucose 72 mg/dL (74-99); Non-African American GFR(CKD) 30 (>60 ml/min/1.73 sqM); Potassium 4.1 mmol/L (3.5-5.1); Sodium 139 mmol/L (137-145)
[2021-11-12 07:14] LABS: Glucose,Whole Blood 84 mg/dL (70-110)
[2021-11-12] MEDS: allopurinoL 100 MG TAB PO SCH (07:20)
[2021-11-12] MEDS: GABAPENTIN 300 MG CAP PO SCH ×2 (07:20→20:45)
[2021-11-12] MEDS: APIXABAN 5 MG TAB PO SCH (07:20)
[2021-11-12] MEDS: LOSARTAN 50 MG TAB PO SCH (08:39)
[2021-11-12] MEDS: FUROSEMIDE 40 MG TAB PO SCH ×2 (08:39→17:07)
[2021-11-12 09:03] LABS: % Iron Saturation 7.52 (15.00-50.00); Ferritin 24.1 ng/mL (22.0-322.0)
[2021-11-12] MEDS: traMADol 50 MG TAB PO SCH ×2 (09:12→20:45)
--- NOTE | 2021-11-12 11:28 | P.CRDCN ---
History of Present Illness Consult date: 11/12/21 History of present illness: The patient is a 81-year-old male who follows in the office with Dr. NANCY Zuñiga, who presented to the emergency room after experiencing a syncopal spell. The patient states he was working at a local [employer] when he was setting of his supplies. He states he sat down and the next thing he knew he was being awoken by his use and neighbor. He states he did not have any prodromal symptoms prior to losing consciousness. He states he's had no other health problems recently except severe neck discomfort. He is following with Dr. January ying. He denies syncope in the past. He also denies chronic dizziness or lightheadedness. DIAGNOSTICS: EKG shows atrial paced rhythm with IVCD and prolonged QT interval CT of head and neck showed no acute intracranial process with moderate multilevel degenerative disc disease and anterolisthesis on C2-C3. Lab data: WBC 6.5, hemoglobin 8.2, hematocrit 27.4, platelet 170, sodium 137, potassium 4.5, BUN 30, creatinine 2.48, magnesium 2.0, AST 17, ALT 11, TSH 3.0 PAST MEDICAL HISTORY: Ischemic cardiomyopathy status post AICD, chronic kidney disease, hypertension, atrial fibrillation, coronary artery disease REVIEW OF SYSTEMS: No fever or chills. No cough or expectoration. No diaphores is. Patient denies headache, dizziness, blurred vision, double vision. Patient denies any stomach discomfort. No nausea, vomiting. No hematochezia. No hematemesis. Denies any black stools or blood in his stools. Denies dysuria or hematuria. No muscle weakness or numbness. Positive for neck pain. Negative for chest pain or chest pressure. PHYSICAL EXAMINATION: This is a 81-year-old male in no apparent distress at the time of my examination. HEENT: Head is atraumatic, normocephalic. Pupils are equal, round. Sclerae anicteric. Conjunctivae are clear. Mucous membranes of the mouth are moist. Neck is supple. There is no jugular venous distention. No carotid bruit is heard. CHEST EXAMINATION: Lungs are clear to auscultation. No chest wall tenderness is noted on palpation or with deep breathing. HEART EXAMINATION: Heart regular rate and rhythm. S1, S2 heard. No gallops or rub. Systolic murmur. ABDOMEN: Soft, nontender. Bowel sounds are heard. No organomegaly noted. EXTREMITIES: 2+ peripheral pulses with no evidence of peripheral edema and no calf tenderness noted. NEUROLOGIC EXAMINATION: Patient is awake, alert and oriented x3. FINAL ASSESSMENT AND PLAN: Syncope and collapse Acute anemia Chronic kidney disease History of coronary artery disease History of ischemic cardiomyopathy Status post AICD PLAN: Check orthostatic blood pressure readings Resume home antihypertensive regimen Obtain device records from [facility] and schedule interrogation Further recommendations to be based on clinicial course I am dictating on behalf of Dr Parker Aparicio's history/physical and assessment/plan. Past Medical History Past Medical History: Cancer, Heart Failure, Diabetes Mellitus, Hyperlipidemia, Hypertension, Myocardial Infarction (UT), Prostate Disorder, Pulmonary Embolus (PE), Renal Disease Additional Past Medical History / Comment(s): hx prostate cancer with surgery, chronic neck, bilateral shoulder and back pain, hx Gout, fatty tumor on right back, gallstones. UT's in 1980 and 2016. Ventricular Tachycardia. Ischemic Cardiomyopathy, left lung pulmonary embolism, non-dependent diabetes mellitus type 2, neuropathy b/l LE, chronic kidney disease stage IV, diverticular disease, gout, glaucoma right eye, congestive heart failure, hypertension, dyslipidemia, coronary artery disease Last Myocardial Infarction Date:: 2016 History of Any Multi-Drug Resistant Organisms: None Reported Past Surgical History: AICD, Back Surgery, Heart Catheterization, Hernia Repair, Pacemaker Additional Past Surgical History / Comment(s): CARDIOVERSION, lumbar surgery X2, cervical epidural injections, bilateral inguinal hernia repairs, TURP, colonoscopy, bilateral cataract removals., Heart Cath 03/22/20 Past Anesthesia/Blood Transfusion Reactions: No Reported Reaction Date of Last Stent Placement:: 10/18/16 Type of Cardiac Device: AICD Device Placement Date:: 01-10-17 Past Psychological History: No Psychological Hx Reported Smoking Status: Former smoker Past Alcohol Use History: None Reported Past Drug Use History: None Reported - Past Family History Mother History Unknown: Yes Family Medical History: Unable to Obtain Additional Family Medical History / Comment(s): Mother of unknown cause. Father History Unknown: Yes Family Medical History: Unable to Obtain Additional Family Medical History / Comment(s): Father of unknown cause. Medications and Allergies Home Medications Medication Instructions Recorded Confirmed Type Atorvastatin [Lipitor] 40 mg PO HS 01/07/17 11/11/21 History Losartan [Cozaar] 50 mg PO DAILY 03/22/19 11/11/21 History Gabapentin [Neurontin] 300 mg PO BID 01/10/20 11/11/21 History carvediloL [Coreg] 12.5 mg PO BID 01/10/20 11/11/21 History Apixaban [Eliquis] 5 mg PO BID 03/20/20 11/11/21 History Furosemide [Lasix] 40 mg PO BID 03/20/20 11/11/21 History Glimepiride [Amaryl] 1 mg PO AC-LUNCH 03/20/20 11/11/21 History traMADol HCL 50 mg PO BID 03/20/20 11/11/21 History calcitrioL [Calcitriol] 0.25 mcg PO FR 04/26/21 11/11/21 History allopurinoL [Zyloprim] 200 mg PO DAILY 07/16/21 11/11/21 History Diclofenac Sodium Gel [Voltaren 100 gm TOPICAL BID 30 Days #100 gm 08/27/21 11/11/21 Rx Gel] tiZANidine [Zanaflex] 2 mg PO Q6HR PRN 30 Days #120 tab 10/03/21 11/11/21 Rx HYDROcodone/APAP 5-325MG [[place] 1 tab PO Q4HR PRN 3 Days #18 tab 11/08/21 11/11/21 Rx 5-325] Ammonium Lactate Lotion 1 applic TOPICAL BID 11/11/21 11/11/21 History [Lac-Hydrin 12% Lotion] Allergies Allergy/AdvReac Type Severity Reaction Status Date / Time amoxicillin Allergy Severe Unknown- Verified 09/27/21 13:00 was hospitalized spironolactone Allergy Unknown Verified 09/27/21 13:00 hydrocodone bitartrate AdvReac Confusion Verified 09/27/21 13:00 [From Vicodin] Physical Exam Vitals: Vital Signs Temp Pulse Pulse Pulse Pulse Resp BP 11/12/21 08:30 98.3 F 88 78 70 19 11/12/21 06:45 98.4 F 64 20 11/12/21 03:32 99.1 F 81 18 11/11/21 23:11 98.5 F 70 19 11/11/21 19:52 18 11/11/21 17:09 97.6 F 11/11/21 15:00 97.3 F L 56 L 18 11/11/21 14:00 94.2 F L 11/11/21 13:00 63 65 61 20 11/11/21 12:04 54 L 18 175/89 BP BP BP Pulse Ox 11/12/21 08:30 152/79 147/76 153/68 96 11/12/21 06:45 146/68 95 11/12/21 03:32 155/76 95 11/11/21 23:11 140/75 95 11/11/21 19:52 11/11/21 17:09 11/11/21 15:00 145/76 98 11/11/21 14:00 11/11/21 13:00 150/81 137/68 136/64 99 11/11/21 12:04 98 Intake and Output 11/11/21 11/12/21 11/12/21 22:59 06:59 14:59 Intake Total 100 180 Output Total 525 650 Balance 100 -525 -470 Intake: Oral 100 180 Output: Urine 525 650 Other: # Voids 1 Results 11/12/21 03:52 11/12/21 03:52 CBC 11/12/21 Range/Units 03:52 WBC 7.4 (3.8-10.6) k/uL RBC 3.33 L (4.30-5.90) m/uL Hgb 9.1 L (13.0-17.5) gm/dL Hct 30.1 L (39.0-53.0) % Plt Count 175 (150-450) k/uL Comprehensive Metabolic Panel 11/12/21 Range/Units 03:52 Sodium 139 (137-145) mmol/L Potassium 4.1 (3.5-5.1) mmol/L Chloride 108 H (98-107) mmol/L Carbon Dioxide 19 L (22-30) mmol/L BUN 36 H (9-20) mg/dL Creatinine 2.03 H (0.66-1.25) mg/dL Glucose 72 L (74-99) mg/dL Calcium 8.9 (8.4-10.2) mg/dL Current Medications Generic Name Dose Route Start Last Admin Trade Name Freq PRN Reason Stop Dose Admin Acetaminophen 650 mg 11/11/21 19:25 11/12/21 03:37 Acetaminophen Tab 325 Mg Tab PO 650 mg Q4HR PRN Administration Fever and/ or Pain Allopurinol 200 mg 11/12/21 09:00 11/12/21 07:20 Allopurinol 100 Mg Tab PO 200 mg DAILY ANGELIQUE Administration Apixaban 5 mg 11/11/21 21:00 11/12/21 07:20 Apixaban 5 Mg Tab PO Not Given BID [facility] Protocol Atorvastatin Calcium 40 mg 11/11/21 21:00 11/11/21 19:49 Atorvastatin 40 Mg Tab PO 40 mg HS ANGELIQUE Administration Calcitriol 0.25 mcg 11/16/21 09:00 Calcitriol 0.25 Mcg Cap PO FR ANGELIQUE Furosemide 40 mg 11/12/21 09:00 11/12/21 08:39 Furosemide 40 Mg Tab PO 40 mg BID@0900,1600 ANGELIQUE Administration Gabapentin 300 mg 11/11/21 21:00 11/12/21 07:20 Gabapentin 300 Mg Cap PO 300 mg BID ANGELIQUE Administration Sodium Chloride 1,000 mls @ 20 mls/hr 11/11/21 11:45 11/11/21 17:43 Saline 0.9% IV Not Given .Q24H ANGELIQUE Losartan Potassium 50 mg 11/12/21 09:00 11/12/21 08:39 Losartan 50 Mg Tab PO 50 mg DAILY ANGELIQUE Administration Naloxone HCl 0.2 mg 11/11/21 11:44 Naloxone 0.4 Mg/Ml 1 Ml Vial IV Q2M PRN Opioid Reversal Tizanidine HCl 2 mg 11/12/21 08:56 Tizanidine 4 Mg Tab PO Q8HR PRN Muscle Spasm Tramadol HCl 50 mg 11/12/21 09:00 11/12/21 09:12 Tramadol 50 Mg Tab PO 50 mg BID ANGELIQUE Administration Intake and Output 11/11/21 11/12/21 11/12/21 22:59 06:59 14:59 Intake Total 100 180 Output Total 525 650 Balance 100 -525 -470 Intake: Oral 100 180 Output: Urine 525 650 Other: # Voids 1 11/12/21 03:52 11/12/21 03:52
--- NOTE | 2021-11-12 11:50 | P.PN ---
Subjective Progress Note Date: 11/12/21 (adry charting seen at 0900) Patient is a 81-year-old with diabetes, hypertension, dyslipidemia, coronary artery disease status post PCI, systolic cardiomyopathy with ejection fraction 25-30% on most recent echo April 2020 status post AICD implantation who presented to the hospital with complaints of a syncopal episode. In arrival to the ER he was found to have a heart rate of 55, blood pressure 104/51, and O2 sat of 94% on room air. Initial laboratory analysis showed hemoglobin of 8.2, BUN 38, creatinine 2.48 which appears slightly above his baseline of 2.2-2.5, troponin was negative. Influenza, COVID, and RSV testing were negative. Fecal occult blood was negative. He did well after admission with no aditional syncope episodes. It came to light that he had recently been started on hydrocodone and was not doing well on this medication due to fatigue. He was also noted that his morning blood sugars are in the 70s typically takes Amaryl at home. They also had a component of hypoglycemia. He was seen by cardiology who is recommending device interrogation, checking orthostatic vital signs, and monitoring clinical course. Patient seen and examined at bedside. He complains of his chronic pain. We again discussed the possible etiologies for her syncopal episodes. I discussed with him thoroughly his polypharmacy with both Ultram and hydrocodone. I attempted to also discuss with him that he is taking Zanaflex and Neurontin. These are all high risk medications for somebody with chronic kidney disease stage IV who is in the upper 70s. He was more interested in talking about how his call light wasn't answered overnight then having a discussion about his polypharmacy. General: nontoxic, no distress, appears at stated age Derm: warm, dry Head: atraumatic, normocephalic, symmetric Eyes: EOMI, no lid lag, anicteric sclera Mouth: no lip lesion, mucus membranes moist, soft cervical collar in place Cardiovascular: S1S2 reg, no murmur, positive posterior tibial pulse bilateral, Lungs: CTA bilateral, no rhonchi, no rales , no accessory muscle use Abdominal: soft, nontender to palpation, no guarding, no appreciable organomegaly Ext: no gross muscle atrophy, trace edema, no contractures Neuro: CN II-XI grossly intact, no focal neuro deficits Psych: Alert, oriented, appropriate affect Assesssmnet/Plan: Syncope Bradycardia Chronic Pain on multiple controlled substances - Cardio recs appreciated -Orthostatics negative - check echo - tele - interrogate ICD - await results - hold coreg - hold noro - Decrease home dose of tizanidine - conitnue with ultram and gabapentin DM 2 - Last A1c was 5.5 in September, - Morning fasting blood sugar was 72 with his Amaryl being held. Anticipate patient to discharge without Amaryl as he may be having hypoglycemic episodes causing his fatigue. Claudication -Neurogenic versus vascular -Already Following with Dr. Mosley's and -Lid also recommend following with Dr. Lopez on discharge for assessment of pe ripheral arterial disease. Anemia - Iron deficiency- start IV iron - B 12 low normal - Folate pending - TSH normal - follow CBC - FOB negative Compensated Systolic CHF with EF 25-30% HTN HLD - Hypotensive with EMS - Hold lasix, losartan, and coreg CKD IV - at baseline - monitor Cr Hypothermia, resolved Anticipate home in AM Objective - Vital Signs Vital signs: Vital Signs Temp 98.3 F 11/12/21 08:30 Pulse 70 11/12/21 08:30 Resp 19 11/12/21 08:30 BP 153/68 11/12/21 08:30 Pulse Ox 96 11/12/21 08:30 FiO2 Intake & Output 11/11/21 11/12/21 11/12/21 18:59 06:59 18:59 Intake Total 100 180 Output Total 525 650 Balance 100 -525 -470 Weight 108.862 kg Intake: Oral 100 180 Output: Urine 525 650 Other: Voiding Method Toilet # Voids 1 1 - Labs CBC & Chem 7: 11/12/21 03:52 11/12/21 03:52 Labs: Abnormal Lab Results - Last 24 Hours (Table) 11/11/21 11/11/21 11/12/21 Range/Units 10:17 13:55 03:52 RBC 3.33 L (4.30-5.90) m/uL Hgb 9.1 L (13.0-17.5) gm/dL Hct 30.1 L (39.0-53.0) % MCHC 30.2 L (31.0-37.0) g/dL RDW 16.4 H (11.5-15.5) % Chloride (98-107) mmol/L Carbon Dioxide (22-30) mmol/L BUN (9-20) mg/dL Creatinine (0.66-1.25) mg/dL Glucose (74-99) mg/dL POC Glucose (mg/dL) 129 H (70-110) mg/dL Iron 24 L (65-175) ug/dL % Saturation 7.52 L (15.00-50.00) 11/12/21 Range/Units 03:52 RBC (4.30-5.90) m/uL Hgb (13.0-17.5) gm/dL Hct (39.0-53.0) % MCHC (31.0-37.0) g/dL RDW (11.5-15.5) % Chloride 108 H (98-107) mmol/L Carbon Dioxide 19 L (22-30) mmol/L BUN 36 H (9-20) mg/dL Creatinine 2.03 H (0.66-1.25) mg/dL Glucose 72 L (74-99) mg/dL POC Glucose (mg/dL) (70-110) mg/dL Iron (65-175) ug/dL % Saturation (15.00-50.00)
[2021-11-12 12:19] LABS: Glucose,Whole Blood 177 mg/dL (70-110)
[2021-11-12] MEDS ORDERED: SODIUM FERRIC GLUCONAT-SUCROSE 125 MG in SODIUM CHLORIDE 0.9% 100 ML IVPB ONE (12:30)
[2021-11-12] MEDS: SODIUM CHLORIDE 0.9% 1,000 ML IV SCH (13:38)
[2021-11-12 17:13] LABS: Glucose,Whole Blood 132 mg/dL (70-110)
[2021-11-12] MEDS: tiZANidine 4 MG TAB PO PRN (17:34)
[2021-11-12] MEDS: ATORVASTATIN 40 MG TAB PO SCH (20:46)
[2021-11-12 23:06] LABS: Glucose,Whole Blood 119 mg/dL (70-110)
[2021-11-13 06:52] LABS: Anisocytosis Slight; HCT 32.5 % (39.0-53.0); HGB 9.8 gm/dL (13.0-17.5); Hypochromasia Marked; MCH 27.3 pg (25.0-35.0); MCHC 30.3 g/dL (31.0-37.0); MCV 90.1 fL (80.0-100.0); Mean Platelet Volume 8.4; Platelet Count 191 k/uL (150-450); RBC 3.61 m/uL (4.30-5.90); RDW 16.6 % (11.5-15.5); WBC 7.2 k/uL (3.8-10.6)
[2021-11-13 07:04] LABS: African American GFR (CKD) 44 (>60 ml/min/1.73 sqM); Anion Gap 10 mmol/L; Blood Urea Nitrogen 29 mg/dL (9-20); Calcium 8.9 mg/dL (8.4-10.2); Carbon Dioxide 23 mmol/L (22-30); Chloride 109 mmol/L (98-107); Glucose 101 mg/dL (74-99); Non-African American GFR(CKD) 38 (>60 ml/min/1.73 sqM); Potassium 3.8 mmol/L (3.5-5.1); Sodium 142 mmol/L (137-145)
[2021-11-13 07:05] LABS: Glucose,Whole Blood 144 mg/dL (70-110)
[2021-11-13] MEDS: LOSARTAN 50 MG TAB PO SCH (08:36)
[2021-11-13] MEDS: GABAPENTIN 300 MG CAP PO SCH ×2 (08:36→20:53)
[2021-11-13] MEDS: traMADol 50 MG TAB PO SCH ×2 (08:36→20:53)
[2021-11-13] MEDS: allopurinoL 100 MG TAB PO SCH (08:36)
[2021-11-13] MEDS: FUROSEMIDE 40 MG TAB PO SCH ×2 (08:43→19:18)
[2021-11-13] MEDS: AMIODARONE 200 MG TAB PO SCH ×2 (09:20→20:53)
[2021-11-13] MEDS: METOPROLOL TARTRATE 50 MG TAB PO SCH ×2 (09:21→20:53)
--- NOTE | 2021-11-13 10:25 | P.PN ---
Subjective This is a 81-year old male with a past medical history significant for ischemic cardiomyopathy with previous ICD placement, coronary artery disease with previous PCI, congestive heart failure, COPD, diabetes mellitus, chronic kidney disease, and pulmonary emboli. Patient follows in the office with Dr. Zuñiga. We have been asked to see the patient in consultation for syncope. Patient presented to the ER after a syncopal episode. He states that morning he took [place] around 7:30am. 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 He states he sat down and the next thing he knew he was being awoken by his use and neighbor. He states he did not have any prodromal symptoms prior to losing consciousness. Patient seen and examined at bedside, no distress. He denies any chest pain, shortness of breath, lightheadedness, dizziness. Telemetry reviewed patient is maintaining sinus, atrial paced, with episodes of NSVT, 6beat run. ICD was interrogated patient with multiple episodes of NSVT. His BP is stable, 146/66. GENERAL: Well-appearing, well-nourished and in no acute distress. NECK: Supple without JVD LUNGS: Breath sounds clear to auscultation bilaterally. Respiration equal and un labored. No wheezes, rales or rhonchi. HEART: Regular rate and rhythm without murmurs, rubs or gallops. S1 and S2 heard. EXTREMITIES: Normal range of motion, no edema. No clubbing or cyanosis. Perip heral pulses intact. ASSESSMENT Syncopal episode, unclear etiology, possibly related to taking [place] in the morning NSVT Anemia Acute on Chronic kidney disease History of coronary artery disease History of ischemic cardiomyopathy Status post AICD PLAN Start amiodarone 200mg BID and taper as outpatient Discontinue coreg and start metoprolol tartrate 50mg BID Recommend discontinuing [place] Orthostatics were negative Continue cardiac telemetry Recommend monitoring for additional 24 hours, hopefully discharge tomorrow Nurse Practitioner note has been reviewed, I agree with a documented findings and plan of care. Patient was seen and examined. Objective - Vital Signs Vital signs: Vital Signs Temp 98.4 F 11/13/21 08:05 Pulse 71 11/13/21 09:36 Resp 17 11/13/21 09:36 BP 146/66 11/13/21 08:05 Pulse Ox 99 11/13/21 08:05 FiO2 Intake & Output 11/12/21 11/13/21 11/13/21 18:59 06:59 18:59 Intake Total 180 Output Total 1225 1375 200 Balance -1045 -1375 -200 Intake: Oral 180 Output: Urine 1225 1375 200 Other: Voiding Method Toilet Toilet Urinal # Voids 1 - Labs CBC & Chem 7: 11/13/21 06:38 11/13/21 06:38 Labs: Abnormal Lab Results - Last 24 Hours (Table) 11/12/21 11/12/21 11/12/21 Range/Units 12:14 17:12 23:05 RBC (4.30-5.90) m/uL Hgb (13.0-17.5) gm/dL Hct (39.0-53.0) % MCHC (31.0-37.0) g/dL RDW (11.5-15.5) % Chloride (98-107) mmol/L BUN (9-20) mg/dL Creatinine (0.66-1.25) mg/dL Glucose (74-99) mg/dL POC Glucose (mg/dL) 177 H 132 H 119 H (70-110) mg/dL 11/13/21 11/13/21 11/13/21 Range/Units 06:38 06:38 06:54 RBC 3.61 L (4.30-5.90) m/uL Hgb 9.8 L (13.0-17.5) gm/dL Hct 32.5 L (39.0-53.0) % MCHC 30.3 L (31.0-37.0) g/dL RDW 16.6 H (11.5-15.5) % Chloride 109 H (98-107) mmol/L BUN 29 H (9-20) mg/dL Creatinine 1.69 H (0.66-1.25) mg/dL Glucose 101 H (74-99) mg/dL POC Glucose (mg/dL) 144 H (70-110) mg/dL
[2021-11-13 12:12] LABS: Glucose,Whole Blood 133 mg/dL (70-110)
--- NOTE | 2021-11-13 12:21 | P.PN ---
Subjective Progress Note Date: 11/13/21 Hospital course: Patient is a very pleasant 81-year-old male with a past medical history of CAD status post stent placement, ischemic cardiomyopathy status post AICD placement, compensated chronic systolic heart failure with previously known EF of 25-30%, hypertension, and hyperlipidemia. Patient presented to our hospital on 11/11/21 with a chief complaint of syncopal episode. Physical exam: Patient seen and fully evaluated at bedside this morning. Vital signs stable. Patient denied having any new complaints or concerns. He reports last episode of dizziness was prior to arrival at our facility. Medication changes have been made and cardiology started patient on metoprolol and amiodarone. Plan is for continued monitoring overnight and likely discharge home within the next 24-48 hours. Vital signs reviewed and stable. General: Nontoxic, no distress and appears stated age. Derm: Skin warm and dry, normal coloration for ethnicity. Head/neck: Atraumatic, normocephalic and symmetric. Soft cervical collar in place. Eyes: EOMs intact, no lid lag, and anicteric sclera Mouth: no lip lesions, mucus membranes moist Cardiovascular: regular rate and rhythm with normal S1S2, no murmur, positive posterior tibial pulses bilaterally, and cap refill < 2 seconds. Lungs: Respirations even, regular, and unlabored on room air. Lungs CTA bilaterally, no rhonchi, no rales, no wheezing, and no accessory muscle usage. Abdominal: soft, nontender to palpation, no guarding, no appreciable organomegaly Ext: ROM intact. No gross muscle atrophy, no edema, no contractures Neuro: Speech clear, face symmetrical and CN II-XII grossly intact with no noted focal neuro deficits Psych: Alert and oriented to person, place, time, and situation. Appropriate and pleasant affect. Assessment and Plan of Care: Syncopal episode, unclear etiology Bradycardia History of coronary artery disease History of ischemic cardiomyopathy status post AICD placement Compensated chronic systolic heart failure with previously known EF of 25-30% Hypertension Hyperlipidemia Cardiology following and discontinued Coreg and started patient on metoprolol 50 mg twice daily and amiodarone 200 mg twice daily and recommending an additional 24 hours of monitoring. Telemetry monitoring Fall precautions Orthostatic vitals negative Orthostatic vitals were negative Echocardiogram to be completed -AICD interrogated Chronic pain on multiple controlled medications Home dose of tizanidine decreased and [place] discontinued Continue with Ultram and gabapentin. Diabetes mellitus type 2 A1c is stable 5.5% Amaryl discontinued secondary to concerns of episodes of hypoglycemia causing dizziness/lightheadedness and fatigue. Claudication, neurogenic versus vascular Patient follows with Dr. Mosley as an outpatient Recommend outpatient evaluation by vascular surgeon, Dr. Lopez upon discharge for further assessment of peripheral arterial disease Iron deficiency Anemia Continue IV iron, patient will be discharged home on iron supplements B12, TSH, folate, and cortisol normal Chronic kidney disease stage IV At baseline, recommend outpatient follow-up and continued monitoring by educational therapy teacher for long-term monitoring/management CODE STATUS: Full code DVT prophylaxis: SCDs Discussed with: Patient and RN Anticipated discharge date: Likely within the next 24-[address]: Home A total of 39 minutes was spent on the care of this complex patient more than 50% of the time was spent in counseling and care coordination. I reviewed the documentation as provided by the OBIE above, who is the original author of this note. I agree with the documented assessment and plan, with the following changes: none Objective - Vital Signs Vital signs: Vital Signs Temp 97.4 F L 11/13/21 11:50 Pulse 72 11/13/21 11:50 Resp 18 11/13/21 11:50 BP 125/77 11/13/21 11:50 Pulse Ox 97 11/13/21 11:50 FiO2 Intake & Output 11/12/21 11/13/21 11/13/21 18:59 06:59 18:59 Intake Total 180 Output Total 1225 1375 200 Balance -1045 -1375 -200 Intake: Oral 180 Output: Urine 1225 1375 200 Other: Voiding Method Toilet Toilet Urinal # Voids 1 - Labs CBC & Chem 7: 11/13/21 06:38 11/14/21 05:56 Labs: Abnormal Lab Results - Last 24 Hours (Table) 11/12/21 11/12/21 11/12/21 Range/Units 12:14 17:12 23:05 RBC (4.30-5.90) m/uL Hgb (13.0-17.5) gm/dL Hct (39.0-53.0) % MCHC (31.0-37.0) g/dL RDW (11.5-15.5) % Chloride (98-107) mmol/L BUN (9-20) mg/dL Creatinine (0.66-1.25) mg/dL Glucose (74-99) mg/dL POC Glucose (mg/dL) 177 H 132 H 119 H (70-110) mg/dL 11/13/21 11/13/21 11/13/21 Range/Units 06:38 06:38 06:54 RBC 3.61 L (4.30-5.90) m/uL Hgb 9.8 L (13.0-17.5) gm/dL Hct 32.5 L (39.0-53.0) % MCHC 30.3 L (31.0-37.0) g/dL RDW 16.6 H (11.5-15.5) % Chloride 109 H (98-107) mmol/L BUN 29 H (9-20) mg/dL Creatinine 1.69 H (0.66-1.25) mg/dL Glucose 101 H (74-99) mg/dL POC Glucose (mg/dL) 144 H (70-110) mg/dL
[2021-11-13 19:07] LABS: Glucose,Whole Blood 152 mg/dL (70-110)
[2021-11-13] MEDS: SODIUM CHLORIDE 0.9% 1,000 ML IV SCH (19:18)
[2021-11-13 20:12] LABS: Glucose,Whole Blood 106 mg/dL (70-110)
[2021-11-13] MEDS: ATORVASTATIN 40 MG TAB PO SCH (20:53)
[2021-11-13] MEDS: tiZANidine 4 MG TAB PO PRN (21:38)
[2021-11-14] MEDS: ACETAMINOPHEN TAB 325 MG TAB PO PRN (00:44)
[2021-11-14 03:46] VITALS: TEMP 98.2
[2021-11-14 07:28] LABS: Glucose,Whole Blood 115 mg/dL (70-110)
[2021-11-14 07:41] VITALS: BP 136/68; PULSE 60; RESP 18
[2021-11-14 09:21] LABS: African American GFR (CKD) 34 (>60 ml/min/1.73 sqM); Anion Gap 10 mmol/L; Blood Urea Nitrogen 32 mg/dL (9-20); Calcium 8.8 mg/dL (8.4-10.2); Carbon Dioxide 24 mmol/L (22-30); Chloride 105 mmol/L (98-107); Glucose 99 mg/dL (74-99); Non-African American GFR(CKD) 30 (>60 ml/min/1.73 sqM); Sodium 139 mmol/L (137-145)
--- NOTE | 2021-11-14 09:28 | P.PN ---
Subjective This is a 81-year old male with a past medical history significant for ischemic cardiomyopathy with previous ICD placement, coronary artery disease with previous PCI, congestive heart failure, COPD, diabetes mellitus, chronic kidney disease, and pulmonary emboli. Patient follows in the office with Dr. Zuñiga. We have been asked to see the patient in consultation for syncope. Patient presented to the ER after a syncopal episode. He states that morning he took [place] around 7:30am. The patient states he was working at a local [employer] when he was setting of his supplies. He states he sat down and the next thing he knew he was being awoken by his use and neighbor. He states he did not have any prodromal symptoms prior to losing consciousness. Patient seen and examined at bedside, no distress. He denies any chest pain, shortness of breath, lightheadedness, dizziness. Telemetry reviewed, from yesterday until 1PM (unable to access real time secondary to system) patient is maintaining sinus, atrial paced, occasional PVCs are noted. ICD was interrogated patient with multiple episodes of NSVT. His BP is stable, 136/68 GENERAL: Well-appearing, well-nourished and in no acute distress. NECK: Supple without JVD LUNGS: Breath sounds clear to auscultation bilaterally. Respiration equal and unlabored. No wheezes, rales or rhonchi. HEART: Regular rate and rhythm without murmurs, rubs or gallops. S1 and S2 heard. EXTREMITIES: Normal range of motion, no edema. No clubbing or cyanosis. Peripheral pulses intact. ASSESSMENT Syncopal episode, unclear etiology, possibly related to taking [place] in the morning NSVT Anemia Acute on Chronic kidney disease History of coronary artery disease History of ischemic cardiomyopathy Status post AICD PLAN Continue amiodarone 200mg BID and taper as outpatient Continue metoprolol tartrate 50mg BID Recommend discontinuing [place] Orthostatics were negative From a cardiology perspective, patient is stable for discharge when cleared by primary and other consultants Follow up with Dr. Zuñiga in 2 weeks. Nurse Practitioner note has been reviewed, I agree with a documented findings and plan of care. Patient was seen and examined. Objective - Vital Signs Vital signs: Vital Signs Temp 98.2 F 11/14/21 07:39 Pulse 60 11/14/21 07:39 Resp 18 11/14/21 07:39 BP 136/68 11/14/21 07:39 Pulse Ox 92 L 11/14/21 07:39 FiO2 Intake & Output 11/13/21 11/14/21 11/14/21 18:59 06:59 18:59 Output Total 200 400 Balance -200 -400 Output: Urine 200 400 Other: Voiding Method Toilet Urinal # Voids 2 - Labs CBC & Chem 7: 11/13/21 06:38 11/14/21 05:56 Labs: Abnormal Lab Results - Last 24 Hours (Table) 11/13/21 11/13/21 11/14/21 Range/Units 12:11 17:13 05:56 BUN 32 H (9-20) mg/dL Creatinine 2.07 H (0.66-1.25) mg/dL POC Glucose (mg/dL) 133 H 152 H (70-110) mg/dL 11/14/21 Range/Units 07:27 BUN (9-20) mg/dL Creatinine (0.66-1.25) mg/dL POC Glucose (mg/dL) 115 H (70-110) mg/dL
[2021-11-14] MEDS: METOPROLOL TARTRATE 50 MG TAB PO SCH (09:31)
[2021-11-14] MEDS: traMADol 50 MG TAB PO SCH (09:31)
[2021-11-14] MEDS: LOSARTAN 50 MG TAB PO SCH (09:31)
[2021-11-14] MEDS: GABAPENTIN 300 MG CAP PO SCH (09:31)
[2021-11-14] MEDS: FUROSEMIDE 40 MG TAB PO SCH (09:31)
[2021-11-14] MEDS: allopurinoL 100 MG TAB PO SCH (09:31)
[2021-11-14] MEDS: AMIODARONE 200 MG TAB PO SCH (09:33)
--- NOTE | 2021-11-14 09:47 | P.DS ---
Providers Date of admission: 11/13/21 10:36 Expected date of discharge: 11/14/21 Attending physician: King Garibay MD Consults: 11/11/21 11:44 Consult Physician Routine Consulting Provider: Shaheen Aguiar Consult Reason/Comments: syncope Do you want consulting provider notified?: Yes Primary care physician: Beltran Castillo MD Hospital Course: Discharge Diagnosis: Syncopal episode. Unclear etiology possibly secondary to adverse effect of medication. Glimepiride, carvedilol, and Grand Chain were discontinued. Bradycardia with runs of nonsustained V. tach, carvedilol discontinued and patient placed on metoprolol and amiodarone. Chronic pain on multiple controlled medications. Grand Chain discontinued and home Zanaflex dose decreased. Patient to continue with Ultram and gabapentin. Diabetes mellitus, hemoglobin A1c controlled 5.5%. Amaryl discontinued secondary to concerns of possible hypoglycemic episodes. Iron deficiency Anemia. Patient received IV iron supplements. B12, TSH, folate, and cortisol normal. History of coronary artery disease. Continue cardiac medication regimen with amiodarone, metoprolol, atorvastatin, losartan, Lasix, and Eliquis. History of ischemic cardiomyopathy status post AICD placement. Continue cardiac medication regimen with amiodarone, metoprolol, atorvastatin, losartan, Lasix, and Eliquis. Compensated chronic systolic heart failure with previously known EF of 25-30%. Continue cardiac medication regimen with amiodarone, metoprolol, atorvastatin, losartan, Lasix, and Eliquis. Hypertension. Monitor vital signs and continue daily medication regimen with metoprolol and losartan. Hyperlipidemia. Continue daily medication regimen with atorvastatin. Claudication, neurogenic versus vascular. Patient follows with Dr. Ardon outpatient and recommended to be evaluated by vascular surgeon Dr. Lopez outpatient for further evaluation of peripheral artery disease. Chronic kidney disease stage IV. At baseline, recommend outpatient follow-up and continued monitoring by mine car mechanic for long-term monitoring/management. Hospital Course: Patient is a very pleasant 81-year-old male with a past medical history of CAD status post stent placement, ischemic cardiomyopathy status post AICD placement, compensated chronic systolic heart failure with previously known EF of 25-30%, hypertension, and hyperlipidemia. Patient presented to our hospital on 11/11/21 with a chief complaint of syncopal episode. He underwent full evaluation. An EKG was completed revealing an atrial paced rhythm at [address] head and cervical spine negative for acute process. CBC consistent with patient's iron deficiency anemia with hemoglobin 8.2, iron 24, TIBC 319, and iron percent saturation 7.52. Occult stool negative. CMP consistent with stage IV CKD with BUN 38, creatinine 2.48, and GFR of 24. Influenza A, influenza B, RSV, and Covid PCR were all negative. Patient was admitted under our services with consultation to cardiology. Pacemaker was interrogated revealing multiple episodes of nonsustained V. tach. Medication changes were made by cardiology including discontinuation of Coreg and starting patient on metoprolol and amiodarone. Patient had no further episodes of dizziness/lightheadedness or syncopal episodes. Patient is medically stable at this time and is stable for discharge home. Carvedilol, glimepiride, and Grand Chain were all discontinued. Patient was started on amiodarone and metoprolol. Patient to follow up outpatient with PCP in 1-2 days, cardiology in 1 week, vascular surgery in 2 weeks, nephrology in 4 weeks as scheduled, and orthospine surgery. Physical exam: Vital signs reviewed and stable. General: Nontoxic, no distress and appears stated age. Derm: Skin warm and dry, normal coloration for ethnicity. Head/neck: Atraumatic, normocephalic and symmetric. Soft cervical collar in place. Eyes: EOMs intact, no lid lag, and anicteric sclera Mouth: no lip lesions, mucus membranes moist Cardiovascular: regular rate and rhythm with normal S1S2, systolic murmur, positive posterior tibial pulses bilaterally, and cap refill < 2 seconds. Lungs: Respirations even, regular, and unlabored on room air. Lungs CTA bilaterally, no rhonchi, no rales, no wheezing, and no accessory muscle usage. Abdominal: soft, nontender to palpation, no guarding, no appreciable organomegaly Ext: ROM intact. No gross muscle atrophy, no edema, no contractures Neuro: Speech clear, face symmetrical and CN II-XII grossly intact with no noted focal neuro deficits Psych: Alert and oriented to person, place, time, and situation. Appropriate and pleasant affect. A total of 39 minutes of time were spent preparing this complex discharge summary. Pt was discharged on 11/14/21 at 9:45 AM. I reviewed the documentation as provided by the OBIE above, who is the original author of this note. I agree with the documented assessment and plan, with the following changes: none Patient Condition at Discharge: Stable Plan - Discharge Summary Discharge Rx Participant: No New Discharge Prescriptions: New Amiodarone [Cordarone] 200 mg PO BID #120 tab Metoprolol Tartrate [Lopressor] 50 mg PO BID #120 tab tiZANidine [Zanaflex] 2 mg PO Q8HR PRN tab PRN Reason: Muscle Spasm Continue Atorvastatin [Lipitor] 40 mg PO HS Losartan [Cozaar] 50 mg PO DAILY Gabapentin [Neurontin] 300 mg PO BID Furosemide [Lasix] 40 mg PO BID Apixaban [Eliquis] 5 mg PO BID calcitrioL [Calcitriol] 0.25 mcg PO FR allopurinoL [Zyloprim] 200 mg PO DAILY Ammonium Lactate Lotion [Lac-Hydrin 12% Lotion] 1 applic TOPICAL BID Discontinued carvediloL [Coreg] 12.5 mg PO BID Glimepiride [Amaryl] 1 mg PO AC-LUNCH HYDROcodone/APAP 5-325MG [Grand Chain 5-325] 1 tab PO Q4HR PRN 3 Days #18 tab PRN Reason: Pain Diclofenac Sodium Gel [Voltaren Gel] 100 gm TOPICAL BID 30 Days #100 gm tiZANidine [Zanaflex] 2 mg PO Q6HR PRN 30 Days #120 tab PRN Reason: Muscle Spasm Discharge Medication List Atorvastatin [Lipitor] 40 mg PO HS 01/07/17 [History] Losartan [Cozaar] 50 mg PO DAILY 03/22/19 [History] Gabapentin [Neurontin] 300 mg PO BID 01/10/20 [History] Apixaban [Eliquis] 5 mg PO BID 03/20/20 [History] Furosemide [Lasix] 40 mg PO BID 03/20/20 [History] calcitrioL [Calcitriol] 0.25 mcg PO FR 04/26/21 [History] allopurinoL [Zyloprim] 200 mg PO DAILY 07/16/21 [History] Ammonium Lactate Lotion [Lac-Hydrin 12% Lotion] 1 applic TOPICAL BID 11/11/21 [History] Amiodarone [Cordarone] 200 mg PO BID #120 tab 11/14/21 [Rx] Metoprolol Tartrate [Lopressor] 50 mg PO BID #120 tab 11/14/21 [Rx] tiZANidine [Zanaflex] 2 mg PO Q8HR PRN tab 11/14/21 [Rx] Follow up Appointment(s)/Referral(s): Beltran Castillo MD [Primary Care Provider] - 1-2 days (Message left for office to call patient with appointment date and time.) Bert Zuñiga MD [STAFF PHYSICIAN] - 11/20/21 1:30 pm ([facility]!!!) Jo-Ann Lopez DO [STAFF PHYSICIAN] - 12/05/21 9:15 am Fidencio Ardon DO [Doctor of Osteopathic Medicine] - 11/29/21 9:10 am Martin Molina DO [STAFF PHYSICIAN] - 12/21/21 10:00 am Patient Instructions/Handouts: Heart Failure (DC), Pain Management in Older Adults (DC), Syncope (DC), Type 2 Diabetes in the Older Adult (DC) Activity/Diet/Wound Care/Special Instructions: Activity: As tolerated. Take breaks as needed. Diet: Heart healthy and carb consistent diet. Avoid salts, or foods with hidden salts such as canned or boxed foods and frozen dinners. Extra salt makes your heart w ork harder and traps the fluid in your body for longer. Special Instructions: Take all of your medications as directed and remember to keep all of your do ctor's appointments and follow-up as needed. Thank you for allowing us to participate in your care, it was truly a pleasure having you for our patient!!! Discharge Disposition: HOME SELF-CARE
== END 2021-11-14 11:33 | disposition home or self-care (01) | DRG 309 ==
LOC: EC 09:56 → 6NMEDSUR 11:44 → OBSVTOIN 11-13 10:36
PROVIDERS: ADMIT Family Medicine; ATTEND Family Medicine
DX: I47.2 Ventricular tachycardia (principal); I13.0 Hypertensive heart and chronic kidney disease with heart failure and stage 1 through stage 4 chronic kidney disease, or unspecified chronic kidney disease; I50.22 Chronic systolic (congestive) heart failure; N18.4 Chronic kidney disease, stage 4 (severe); E11.22 Type 2 diabetes mellitus with diabetic chronic kidney disease; E11.649 Type 2 diabetes mellitus with hypoglycemia without coma; E11.51 Type 2 diabetes mellitus with diabetic peripheral angiopathy without gangrene; D50.9 Iron deficiency anemia, unspecified; J44.9 Chronic obstructive pulmonary disease, unspecified; I95.9 Hypotension, unspecified; E78.5 Hyperlipidemia, unspecified; H40.9 Unspecified glaucoma; I25.10 Atherosclerotic heart disease of native coronary artery without angina pectoris; I25.5 Ischemic cardiomyopathy; R53.1 Weakness; M25.511 Pain in right shoulder; G89.29 Other chronic pain; M54.2 Cervicalgia; M54.9 Dorsalgia, unspecified; M25.512 Pain in left shoulder; K80.20 Calculus of gallbladder without cholecystitis without obstruction; I49.3 Ventricular premature depolarization; R68.0 Hypothermia, not associated with low environmental temperature; Z20.822 Contact with and (suspected) exposure to COVID-19; Z79.01 Long term (current) use of anticoagulants; Z79.899 Other long term (current) drug therapy; Z79.84 Long term (current) use of oral hypoglycemic drugs; Z88.0 Allergy status to penicillin; Z88.5 Allergy status to narcotic agent; Z88.8 Allergy status to other drugs, medicaments and biological substances; I25.2 Old myocardial infarction; Z85.46 Personal history of malignant neoplasm of prostate; Z95.810 Presence of automatic (implantable) cardiac defibrillator; Z87.891 Personal history of nicotine dependence; Z98.890 Other specified postprocedural states; Z98.41 Cataract extraction status, right eye; Z98.42 Cataract extraction status, left eye; Z86.711 Personal history of pulmonary embolism; Z87.19 Personal history of other diseases of the digestive system; Z95.5 Presence of coronary angioplasty implant and graft; Z86.79 Personal history of other diseases of the circulatory system; Z87.39 Personal history of other diseases of the musculoskeletal system and connective tissue
CPT/HCPCS: 36415; 70450; 72125; 80048; 80053; 82272; 82533; 82607; 82728; 82747; 83540; 83550; 83735; 84443; 84484; 85025; 85027; 85610; 85730; 87636; 93005; 99285

== ENCOUNTER 2021-11-15 08:15 | Day surgery (SDC) | payer MEDICARE, BC ==
[2021-11-15] MEDS ORDERED: LACTATED RINGERS 1,000 ML IV ONE (09:24)
[2021-11-15 09:26] LABS: Glucose,Whole Blood 130 mg/dL (70-110)
[2021-11-15] MEDS ORDERED: MIDAZOLAM 2 MG/2 ML VIAL ONE (09:30)
[2021-11-15] MEDS ORDERED: IOPAMIDOL M200 10 ML VIAL ONE (09:30)
[2021-11-15] MEDS ORDERED: DEXAMETHASONE SOD PHOSPHATE 10 MG/ML 1 ML VIAL ONE (09:30)
[2021-11-15] MEDS ORDERED: fentaNYL (PF) 50 MCG/ML 2 ML AMP ONE (09:30)
--- NOTE | 2021-11-15 09:51 | P.PCN ---
Date of Procedure: 11/15/21 Procedure(s) Performed: PROCEDURE 1. Cervical epidural steroid injection under fluoroscopic guidance, C6-7 (fluoroscopy images available in the radiology department ) 2. Cervical epidurogram. PREOPERATIVE DIAGNOSIS: 1- Cervical Degenerative Disc Diseases 2-cervical spondylosis with cervical Facet arthropathy without myelopathy POSTOPERATIVE DIAGNOSIS: : 1- Cervical Degenerative Disc Diseases , 2-cervical spondylosis with cervical Facet arthropathy without myelopathy ANESTHESIA: Moderate sedation with Versed 1 mg and fentanyl 50 g Sedation start time: 09:43. See dictation end time 0 948 EBL 0 PROCEDURE INDICATION: The patient with neck pain and radiculitis unresponsive to conservative treatment consents for procedure. PROCEDURE DESCRIPTION / TECHNIQUE: The patient was seen and identified in the preoperative area. Risks, benefits, complications, including but not limited to infections ,bleeding , allergic reactions to the medications ,and not complete pain releife, and alternatives were discussed with the patient, the patient agreed to proceed with the procedure and signed the consent. Patient was taken to the OR and time out was completed. The patient was placed in the prone position on the procedure table. A pillow was placed under the patients chest to increase the cervical interlaminar space. The cervical area was prepped and draped in the usual sterile fashion. Vital signs were closely monitored during the procedure. Conscious sedation was used during the procedure to decrease patients anxiety. Using anterior-posterior fluoroscopy, the C6-7 interlaminar space was identified and the skin over this site was marked and then infiltrated with 1% lidocaine subcutaneously. Subsequently, a 20-gauge 3-1/2-inch Tuohy epidural needle was inserted and advanced toward the epidural space by means of the ``hanging-drop technique and guided by AP and lateral fluoroscopy. The correct needle position in the epidural space was verified with the injection of 2 mL of the water soluble contrast dye Isovue-200 and observing an excellent epidurogram with the epidural spread of the dye, after negative aspiration for blood and CSF and in the absence of paresthesias. then, mixture containing 15 mg Dexamethasone and 2 ml of preservative-free normal saline injected and a washout of epidurogram was seen. Needle was withdrawn intact, skin was cleansed, and bandages were applied. Complications= none. Disposition= patient was placed in supine position and transferred to the recovery room area in stable condition and there was no evidence of upper or lower extremity motor or sensory deficit after the procedure patient was discharged from recovery room after discharge criteria met and home discharge instructions was given by the staff and patient will follow with the pain clinic in 2-4 weeks Patient use Eliquis ,and he held it for more than 72 hours.
[2021-11-15] MEDS ORDERED: IV FLUID CONTINUATION 1,000 ML IV ONE (09:54)
[2021-11-15 10:04] VITALS: RESP 16
[2021-11-15 10:12] VITALS: BP 107/72; PULSE 53
--- NOTE | 2021-11-15 12:34 | FL ---
Fluoroscopy HISTORY: Pain 3 seconds fluoroscopy time supplied to the referring clinician. 2 intraoperative C-arm images docume nt the procedure. See dictated report from anesthesia.
== END 2021-11-15 10:28 | disposition home or self-care (01) ==
LOC: ORPAIN 08:15
PROVIDERS: ATTEND Specialist
DX: M50.123 Cervical disc disorder at C6-C7 level with radiculopathy (principal); M47.22 Other spondylosis with radiculopathy, cervical region; I25.10 Atherosclerotic heart disease of native coronary artery without angina pectoris; Z88.8 Allergy status to other drugs, medicaments and biological substances
CPT/HCPCS: 62321; J2250; J1100; J3010; Q9966

== ENCOUNTER → 2021-12-06 | Outpatient (CLI) | payer MEDICARE, BC ==
[2021-12-06 12:53] VITALS: BP 141/65; PULSE 55; RESP 16; TEMP 97.8
--- NOTE | 2021-12-06 13:41 | P.PAINPG ---
PQRS Measure Charge Sheet Comment: A 81 yr old male w at side with a history of severe and chronic neck pain secondary to cervical degenerative disc diseases and spondylosis with facet arthropathy without myelopathy presents today for evaluation s/p SISSY C6-C7. Pt states he experienced 50% pain relief x 3 wks s/p procedure. Pain level is currently at 5/10 in intensity, constant, localized in lower cervical spine, achy in character w shooting towards L shoulder and L bicep. Pain is provoked as high as 7/10 by rotation, flexion. Pain is alleviated with PT x wks in early 2021, massage integrated w PT, home exercise regimen as tolerated, alternating heat & ice, medications (Tramadol, Zanaflex, Neurontin), topicals, use of a C - collar, repositioning and rest. Interventional pain procedures completed include SISSY C6-C7 x1. Patient is currently on Voltaren gel, Zanaflex Patient denies any side effects of the medication(s), denies excessive drowsiness or sleepiness, denies suicidal ideation and reports that the current pain medication is helping to control the pain and improve activities of daily living. Patient denies any motor or sensory deficits. Patient denies any fever or night sweats, denies any change in the bowel movements or urination. Physical Examination: -Constitutional: Cooperative. Not in acute distress . - Neurologic: Cranial nerve II to XII intact. No focal neurological deficits. - Psychatric: Alert & oriented x 3. Matching mood & appropriate affect. Judgment and insight intact. - Musculoskeletal: Cervical spine: Muscle bulk/ tone/ strength in the bilateral upper extremities normal Vertebral body tenderness to palpation over C6 Spurling test positive Distraction test positive Facet loading test positive Thoracic spine Muscle bulk / tone/ strength in the bilateral paraspinal muscles normal Vertebral body tender to palpation over Facet loading test positive Lumbar spine: Motor bulk/ tone/ strength lower extremities , thigh and legs : 5/5 Deep tendon reflexes : Normal Knee Jerk. Normal Ankle Jerk . Vertebral body tenderness to palpation over Lumbar Facet Loading Test positive Straight Leg Raise: positive at 30 degrees right side/ left side Gaenslen's Test positive Sacral spine : Severe tenderness over the Sacroiliac joint: right side / left side Range of motion: Flexion of the lumbar spine <60 degrees Range of motion: Extension of the lumbar spine <20 degrees Gaenslen's Test positive Rafael's Test positive Stephanie test: positive right side / left side Thigh Thrust Test Sacral Thrust Test Assessment and plan: Chronic neck pain secondary to cervical degenerative disc disease , spondylosis with facet arthropathy without myelopathy Recommendation of SISSY C6-C7 #3. May need a series of injections, up to 4 within a 12 mo period, for optimal pain relief. Risks, benefits of procedure discussed and pt verbalized understanding. Admits to anticoagulant use or medical history of diabetes. Protocol for discontinuation/ continuation of meds madisyn procedure discussed. All patient questions answered MAPS reviewed and it was appropriate. Prescription refill for Zanaflex 90 d supply to [facility]. I have spent less than 30 minutes on patient care today. Dr Anton was available by phone for the evaluation of this patient. The time was used to review the medical records including relevant urine studies and Prescription history (MAPs), review of the available imaging, evaluation and examination of the patient, coordination of care with the medical staff and if applicable referring physicians, as well as creation of the medical record - Pain Location Neck Non-Pharmacological Interventions: Heat, Home Exercise, Ice, Inactivity, Massage, Physical Therapy, Position/Reposition, Sitting, Stretching Pharmacological Interventions: Epidural, PRN Medication, Scheduled Medication, Topical Medication PQRS Narrative: Smoking Status Former smoker Hx Alcohol Use (MH) No Home Medications: Ambulatory Orders Atorvastatin [Lipitor] 40 mg PO HS 01/07/17 Losartan [Cozaar] 50 mg PO DAILY 03/22/19 Gabapentin [Neurontin] 300 mg PO BID 01/10/20 Apixaban [Eliquis] 5 mg PO BID 03/20/20 Furosemide [Lasix] 40 mg PO BID 03/20/20 calcitrioL [Calcitriol] 0.25 mcg PO FR 04/26/21 allopurinoL [Zyloprim] 200 mg PO DAILY 07/16/21 Ammonium Lactate Lotion [Lac-Hydrin 12% Lotion] 1 applic TOPICAL BID 11/11/21 Amiodarone [Cordarone] 200 mg PO BID #120 tab 11/14/21 Metoprolol Tartrate [Lopressor] 50 mg PO BID #120 tab 11/14/21 tiZANidine [Zanaflex] 2 mg PO Q8HR PRN tab 11/14/21 Controlled Substance Measures - Controlled Substance Measures Is patient prescribed a controlled substance at discharge?: No
== END ==
LOC: PNWHC3 12:13
PROVIDERS: ATTEND Specialist
DX: M47.812 Spondylosis without myelopathy or radiculopathy, cervical region (principal); M50.30 Other cervical disc degeneration, unspecified cervical region; Z88.0 Allergy status to penicillin; Z87.891 Personal history of nicotine dependence; Z88.3 Allergy status to other anti-infective agents; Z88.5 Allergy status to narcotic agent
CPT/HCPCS: 99211

== ENCOUNTER 2021-12-28 19:04 | Emergency (ER) | payer MEDICARE, BC ==
[2021-12-28 19:18] VITALS: TEMP 97.8
--- NOTE | 2021-12-28 20:38 | ED ---
Abdominal Pain HPI - General Chief Complaint: Abdominal Pain Stated Complaint: Gallbladder attack Time Seen by Provider: 12/28/21 20:23 Source: family, RN notes reviewed, old records reviewed Mode of arrival: wheelchair Limitations: no limitations - History of Present Illness Initial Comments: This is a 81-year-old male, alert and oriented that presents with complaining of right sided abdominal pain for 3 days radiating to his right flank. Patient states unable to get comfortable and worse with palpation and movement. Denies any chest pain or difficulty breathing. Denies any fevers. Does have nausea but no vomiting or diarrhea. Patient believes this is his gallbladder as Dr. Ashford told him in 2019 he had a borderline gallbladder. MD Complaint: abdominal pain (right sided) -: days(s) (3) Location: RUQ, RLQ, R flank Severity scale (1-10): 10 Quality: sharp Consistency: intermittent Associated Symptoms: nausea - Related Data Home Medications Medication Instructions Recorded Confirmed Atorvastatin [Lipitor] 40 mg PO HS 01/07/17 12/06/21 Losartan [Cozaar] 50 mg PO DAILY 03/22/19 12/06/21 Gabapentin [Neurontin] 300 mg PO BID 01/10/20 12/06/21 Apixaban [Eliquis] 5 mg PO BID 03/20/20 12/06/21 Furosemide [Lasix] 40 mg PO BID 03/20/20 12/06/21 calcitrioL [Calcitriol] 0.25 mcg PO FR 04/26/21 12/06/21 allopurinoL [Zyloprim] 200 mg PO DAILY 07/16/21 12/06/21 Ammonium Lactate Lotion 1 applic TOPICAL BID 11/11/21 12/06/21 [Lac-Hydrin 12% Lotion] Previous Rx's Medication Instructions Recorded Amiodarone [Cordarone] 200 mg PO BID #120 tab 11/14/21 Metoprolol Tartrate [Lopressor] 50 mg PO BID #120 tab 11/14/21 tiZANidine [Zanaflex] 2 mg PO Q8HR PRN 90 Days #270 tab 12/06/21 Allergies Allergy/AdvReac Type Severity Reaction Status Date / Time amoxicillin Allergy Severe Unknown- Verified 12/28/21 19:18 was hospitalized spironolactone Allergy Unknown Verified 12/28/21 19:18 hydrocodone bitartrate AdvReac Confusion Verified 12/28/21 19:18 [From Vicodin] Review of Systems ROS Statement: Those systems with pertinent positive or pertinent negative responses have been documented in the HPI. ROS Other: All systems not noted in ROS Statement are negative. Past Medical History Past Medical History: Cancer, Heart Failure, Diabetes Mellitus, Hyperlipidemia, Hypertension, Myocardial Infarction ([place]), Prostate Disorder, Pulmonary Embolus (PE), Renal Disease Additional Past Medical History / Comment(s): hx prostate cancer with surgery, chronic neck, bilateral shoulder and back pain, hx Gout, fatty tumor on right back, gallstones. [place]'s in 1980 and 2017. Ventricular Tachycardia. Ischemic Cardiomyopathy, left lung pulmonary embolism, non-dependent diabetes mellitus type 2, neuropathy b/l LE, chronic kidney disease stage IV, diverticular disease, gout, glaucoma right eye, congestive heart failure, hypertension, dyslipidemia, coronary artery disease Last Myocardial Infarction Date:: 2016 History of Any Multi-Drug Resistant Organisms: None Reported Past Surgical History: AICD, Back Surgery, Heart Catheterization, Hernia Repair, Pacemaker Additional Past Surgical History / Comment(s): CARDIOVERSION, lumbar surgery X2, cervical epidural injections, bilateral inguinal hernia repairs, TURP, colonoscopy, bilateral cataract removals., Heart Cath 03/22/20 Past Anesthesia/Blood Transfusion Reactions: No Reported Reaction Date of Last Stent Placement:: 10/18/16 Type of Cardiac Device: AICD Device Placement Date:: 01-10-17 Past Psychological History: No Psychological Hx Reported Smoking Status: Former smoker Past Alcohol Use History: None Reported Past Drug Use History: None Reported - Past Family History Mother History Unknown: Yes Family Medical History: Unable to Obtain Additional Family Medical History / Comment(s): Mother of unknown cause. Father History Unknown: Yes Family Medical History: Unable to Obtain Additional Family Medical History / Comment(s): Father of unknown cause. General Exam Limitations: no limitations General appearance: alert, in no apparent distress Head exam: Present: atraumatic Eye exam: Present: PERRL. Absent: scleral icterus, conjunctival injection, periorbital swelling, periorbital tenderness Neck exam: Present: tenderness. Absent: meningismus, other (Chronic C-spine pain patient is wearing a soft collar) Respiratory exam: Present: normal lung sounds bilaterally. Absent: respiratory distress, accessory muscle use Cardiovascular Exam: Present: bradycardia GI/Abdominal exam: Present: soft, tenderness (RUQ RLQ). Absent: guarding, rebound, rigid Extremities exam: Present: normal capillary refill. Absent: tenderness, pedal edema, calf tenderness Back exam: Present: paraspinal tenderness (LS spine). Absent: tenderness (right lower LS spine), CVA tenderness (R), CVA tenderness (L) Neurological exam: Present: alert, oriented X3 Psychiatric exam: Present: normal affect, normal mood Skin exam: Present: warm, normal color. Absent: cyanosis, diaphoretic, pallor Course Vital Signs 12/28/21 12/29/21 19:15 00:13 Temperature 97.8 F Pulse Rate 52 L 58 L Respiratory 18 16 Rate Blood Pressure 113/62 162/78 O2 Sat by Pulse 96 96 Oximetry Medical Decision Making - Medical Decision Making patient presents with right-sided abdominal pain and concern for cholecystitis. CT shows multiple calcified gallstones. 7mm calcification lower pole right kidney. 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 No diverticulitis. Appendix appears normal. Multilevel spondylotic changes in lumar spine with vacuum disc and spur formation. No compression fracture. Spinal stenosis at L2-3, L4-5. No evidence of lactic acidosis. Amylase and lipase are within normal limits. Patient did have labs drawn by his field map technician this morning showing no evidence of leukocytosis. Stable chronic kidney disease. vital signs are stable. Patient states that pain started after being in a chair for a while and worsens with movement or palpation along left lower back. This is likely musculoskeletal pain with patient having multiple back surgeries. He is currently wearing a soft c-collar for comfort. Patient and were recommended to follow up with primary care doctor on Friday. Continue previously prescribed pain medications and return to the emergency room with any new or concerning symptoms. Case discussed with Dr. Michel - Lab Data Lab Results 12/28/21 12/28/21 12/28/21 Range/Units 21:46 21:46 21:46 PT 10.7 (9.0-12.0) sec INR 1.0 (<1.2) APTT 28.1 (22.0-30.0) sec Plasma Lactic Acid Ozzy 0.7 (0.7-2.0) mmol/L Amylase 68 (30-110) U/L Lipase 91 (23-300) U/L Disposition Clinical Impression: Abdominal pain Disposition: HOME SELF-CARE Condition: Good Instructions (If sedation given, give patient instructions): Abdominal Pain (ED) Additional Instructions: Continue taking medications as previously prescribed. Follow-up with your primary care doctor next week. Return to the emergency room with any new or concerning symptoms including increased pain, fevers, or persistent nausea or vomiting. Is patient prescribed a controlled substance at d/c from ED?: No Referrals: Bruce Arnold MD [Primary Care Provider] - 1-2 days Time of Disposition: 23:08
[2021-12-28 22:06] LABS: Partial Thromboplastin Time 28.1 sec (22.0-30.0); Prothrombin Time 10.7 sec (9.0-12.0)
--- NOTE | 2021-12-28 22:10 | CT ---
EXAMINATION TYPE: CT abdomen pelvis wo con DATE OF EXAM: 12/28/2021 COMPARISON: 07/30/2017 HISTORY: RUQ pain CT DLP: 1015.7 mGycm Automated exposure control for dose reduction was used. There is moderate interstitial infiltrates in the lung bases bilaterally. Heart is enlarged. No pleur al effusion. No pericardial effusion. There are multiple calcified gallstones. Liver and spleen are intact. Impression not dilated. No pancreatic mass. The stomach is intact There is no adrenal mass. Kidneys have normal size. No hydronephrosis. Ureters are not dilated. There is 7 mm calcification lower pole right kidney. There is 3.1 cm aneurysm of the lower bowel aorta. Th ere is moderate plaque formation in the abdominal aorta. There is stenosis of the left common iliac a rtery. No inguinal hernia. Bladder distends smoothly. No free fluid in the pelvis. No pelvic mass. There are sigmoid diverticula . No diverticulitis. Appendix is anterior and appears normal. There is no mesenteric edema. No ascites or free air. No bowel obstruction. There are multilevel spondylotic changes in the lumbar spine with vacuum disc and spur formation. No compression fracture. There is spinal stenosis at L2-3 and L4-5. The bony pelvis is intact. The hip j oints are intact. IMPRESSION: Cardiomegaly. Lower lobe moderate interstitial pneumonia which is new compared to the old exam. Cholelithiasis. Normal appendix. Colonic diverticulosis without diverticulitis. Moderate atherosclerotic vascular disease. Abdominal aortic aneurysm. Stenosis left common iliac bucky ry. L2-3 bony spinal stenosis. Moderate L4-5 bony spinal stenosis.
[2021-12-28 22:33] LABS: Amylase 68 U/L (30-110); Lipase 91 U/L (23-300)
[2021-12-28] MEDS ORDERED: ORPHENADRINE 30 MG/ML 2 ML VIAL IM STA (23:37)
[2021-12-29 00:14] VITALS: BP 162/78; PULSE 58; RESP 16
== END 2021-12-29 00:14 | disposition home or self-care (01) ==
LOC: EC 19:04
DX: R10.9 Unspecified abdominal pain (principal); E11.9 Type 2 diabetes mellitus without complications; E78.5 Hyperlipidemia, unspecified; I25.2 Old myocardial infarction; I12.9 Hypertensive chronic kidney disease with stage 1 through stage 4 chronic kidney disease, or unspecified chronic kidney disease; N18.9 Chronic kidney disease, unspecified; I50.9 Heart failure, unspecified; Z87.891 Personal history of nicotine dependence; Z79.899 Other long term (current) drug therapy; Z79.811 Long term (current) use of aromatase inhibitors; Z79.02 Long term (current) use of antithrombotics/antiplatelets; Z88.0 Allergy status to penicillin; Z88.3 Allergy status to other anti-infective agents; Z88.5 Allergy status to narcotic agent
CPT/HCPCS: 36415; 82150; 83605; 83690; 85610; 85730; 74176; 99284; 96372; J2360

== ENCOUNTER → 2021-12-28 | Outpatient (CLI) | payer MEDICARE, BC ==
[2021-12-28 10:48] LABS: Basophils # (A) 0.05 X 10*3/uL (0.00-0.10); Basophils % (A) 0.5 %; Eosinophils # (A) 0.24 X 10*3/uL (0.04-0.35); Eosinophils % (A) 2.4 %; HCT 34.1 % (39.6-50.0); HGB 10.2 g/dL (13.0-17.0); Immature Grans, Automated 0.5 %; Lymphocytes # (A) 0.85 X 10*3/uL (0.90-5.00); Lymphocytes % (A) 8.5 %; MCH 26.8 pg (27.0-32.0); MCHC 29.9 g/dL (32.0-37.0); MCV 89.5 fL (80.0-97.0); Mean Platelet Volume 11.2 fL (9.5-12.2); Monocytes # (A) 0.81 X 10*3/uL (0.20-1.00); Monocytes % (A) 8.1 %; NRBC Per 100 WBC 0 /100 WBCS (0.0-0.0); Neutrophils # (A) 7.95 X 10*3/uL (1.80-7.70); Platelet Count 279 X 10*3/uL (140-440); RBC 3.81 X 10*6/uL (4.40-5.60); RDW 15.9 % (11.5-14.5); WBC 9.95 X 10*3/uL (4.50-10.00)
[2021-12-28 11:00] LABS: Appearance,Urine Clear (Clear); Bilirubin,Urine Negative (Negative); Blood,Urine Moderate (Negative); Color,Urine Yellow (Yellow); Ketones,Urine Negative (Negative); Nitrite,Urine Negative (Negative); PH, Urine 7.5 (5.0-8.0); Specific Gravity,Urine 1.013 (1.001-1.030); Urobilinogen,Urine 0.2 (0.2,1.0)
[2021-12-28 11:10] LABS: Uric Acid 6.2 mg/dL (3.7-8.7)
[2021-12-28 11:11] LABS: % Iron Saturation 6.55 (15.00-50.00); African American GFR (CKD) 31.8 (60.0-200.0); Anion Gap 11.1 mmol/L (10.00-18.00); BUN/Creat Ratio 14.14 Ratio (12.00-20.00); Blood Urea Nitrogen 31.1 mg/dL (9.0-27.0); Calcium 9.6 mg/dL (8.7-10.3); Carbon Dioxide 24.9 mmol/L (20.0-27.5); Magnesium 2.2 mg/dL (1.5-2.4); Non-African American GFR(CKD) 27.5 (60.0-200.0); Phosphorus 3.3 mg/dL (2.4-5.1); Potassium 5.1 mmol/L (3.5-5.5)
[2021-12-28 11:24] LABS: Urine Creatinine 49.7 mg/dL (39.0-259.0)
[2021-12-28 11:31] LABS: Bacteria,Urine None Seen /HPF (None Seen); Ferritin 40.4 ng/mL (22.0-322.0)
== END | disposition home or self-care (01) ==
LOC: LABWHC1 07:08
PROVIDERS: ATTEND Internal Medicine Nephrology
DX: E55.9 Vitamin D deficiency, unspecified (principal); D63.1 Anemia in chronic kidney disease; N18.4 Chronic kidney disease, stage 4 (severe); N25.81 Secondary hyperparathyroidism of renal origin; M10.9 Gout, unspecified; N39.0 Urinary tract infection, site not specified
CPT/HCPCS: 36415; 80048; 81001; 82040; 82043; 82306; 82570; 82728; 83540; 83550; 83735; 83970; 84100; 84550; 85025

== ENCOUNTER 2022-01-01 07:20 | Day surgery (SDC) | payer MEDICARE, BC ==
[2022-01-01 08:03] VITALS: RESP 16; TEMP 97.6
[2022-01-01] MEDS ORDERED: LACTATED RINGERS 1,000 ML IV SCH (08:30)
[2022-01-01 08:38] LABS: Glucose,Whole Blood 116 mg/dL (70-110)
[2022-01-01] MEDS ORDERED: fentaNYL (PF) 50 MCG/ML 2 ML AMP ONE (08:43)
[2022-01-01] MEDS ORDERED: MIDAZOLAM 2 MG/2 ML VIAL ONE (08:43)
[2022-01-01] MEDS ORDERED: DEXAMETHASONE SOD PHOSPHATE 10 MG/ML 1 ML VIAL ONE (08:43)
[2022-01-01] MEDS ORDERED: IOPAMIDOL M200 10 ML VIAL ONE (08:43)
--- NOTE | 2022-01-01 09:18 | P.PCN ---
Date of Procedure: 01/01/22 Description of Procedure: Pre- and Post-operative Diagnosis: Cervical radiculopathy Procedure: C6-C7 Inter-Laminar Cervical Epidural Steroid Injection under biplanar fluoroscopy #3 Surgeon: Guido Mejia Anesthesia: Local: 1% Lidocaine, IV sedation : Versed 1 mg, and fentanyl 50 g. Sedation supervision start time : 0848 sedation Supervision end time: 0 914 Complications: None. Estimated blood loss: None Specimens removed: None Last dose of eliquis : 12/28/21 Fluoroscopic image: saved to electronic medical records. Indications for Procedure: The patient has been suffering from neck pain and pain radiating to the upper extremity . Inadequate pain control with pharmacologic regimen. An inter-laminar approach cervical epidural steroid injection was scheduled for the patient. Procedure and Findings: The patient was seen and examined in the holding area. The written informed consent was obtained after explaining the risks, benefits, alternatives of the procedure to the patient. The patient was brought to the procedure room and was placed in the prone position on the operating table. A pillow was placed under the upper chest. Standard anesthesia monitoring was done through out the procedure. Timeout was completed. The skin preparation was done with ChloraPrep 1 and draping was done in usual sterile fashion. Sterile technique was observed throughout the procedure. Under fluoroscopic guidance, the C6-C7 inter-laminar space was identified. 3 ml of 1% Lidocaine was injected with a 25 gauge needle to achieve adequate local anesthesia of the skin and subcutaneous tissue. A 20 gauge, 3.5 inch Tuohy type epidural needle was placed and gradually advanced up to the epidural space using loss of resistance technique and fluoroscopic guidance. Lateral, oblique fluoroscopic views confirm the needle position. No paresthesia was noted. A negative aspiration was confirmed and then 2 ml of Isovue-200 was injected. A good dye spread was seen in the epidural space and it was negative for any intrathecal, intraneural or intravascular spread. A total of 5 ml solution containing 10 mg Dexamethasone, and 4 ml preservative-free Normal Saline was injected slowly with intermittent aspiration. The needle was removed intact, area was cleaned and bandage was applied. Disposition : The patient tolerated the procedure very well. The patient was transferred to the recovery room and remained stable until discharged home. The patient was given detailed discharge instructions for bleeding, infection, increased pain at the injection site, and was advised to seek immediate medical attention should significant side effects develop. The patient will be followed up with our [facility] within 4 weeks for follow-up visit.
[2022-01-01] MEDS ORDERED: IV FLUID CONTINUATION 1,000 ML IV ONE (09:20)
[2022-01-01 09:26] VITALS: PULSE 55
--- NOTE | 2022-01-01 09:30 | FL ---
Intraoperative/procedural fluoroscopic services were provided for cervical epidural injection. Total fluoroscopy time is 29 seconds with a total of 3 submitted images to PACS. Please see the operative n ote for further details.
[2022-01-01 09:38] VITALS: BP 147/85
== END 2022-01-01 10:01 | disposition home or self-care (01) ==
LOC: ORPAIN 07:20
DX: M54.12 Radiculopathy, cervical region (principal); E11.9 Type 2 diabetes mellitus without complications; I10 Essential (primary) hypertension; E78.00 Pure hypercholesterolemia, unspecified; I25.10 Atherosclerotic heart disease of native coronary artery without angina pectoris; Z98.890 Other specified postprocedural states; Z88.5 Allergy status to narcotic agent; Z88.0 Allergy status to penicillin
CPT/HCPCS: 99152; 99153; 62321; J2250; J1100; J3010; Q9966

== ENCOUNTER 2022-01-05 02:06 | Observation (INO) | payer MEDICARE, BC ==
--- NOTE | 2022-01-05 02:30 | ED ---
SOB HPI - General Chief Complaint: Shortness of Breath Stated Complaint: Difficulty Breathing Time Seen by Provider: 01/05/22 02:12 Source: patient, RN notes reviewed, old records reviewed Mode of arrival: wheelchair Limitations: no limitations - History of Present Illness Initial Comments: This is a 81-year-old male to the emergency department for evaluation. Patient presents today for evaluation of shortness of breath sudden onset of shortness of breath tonight. Persistent shortness of breath does admit to similar symptoms last night but the resolved on her own. Multiple episodes of recurrent syncope recently and patient is concerned that is going to MD Complaint: shortness of breath -: hour(s) Severity: moderate Severity scale (1-10): 4 Quality: dull Consistency: intermittent Improves With: nothing Worsens With: nothing Known History Of: congestive heart failure Context: recent URI, anxiety Associated Symptoms: cough Treatments Prior to Arrival: none - Related Data Home Medications Medication Instructions Recorded Confirmed Atorvastatin [Lipitor] 40 mg PO HS 01/07/17 12/31/21 Losartan [Cozaar] 50 mg PO DAILY 03/22/19 12/31/21 Gabapentin [Neurontin] 300 mg PO BID 01/10/20 12/31/21 Apixaban [Eliquis] 5 mg PO BID 03/20/20 12/31/21 Furosemide [Lasix] 40 mg PO BID 03/20/20 12/31/21 calcitrioL [Calcitriol] 0.25 mcg PO FR 04/26/21 12/31/21 allopurinoL [Zyloprim] 200 mg PO DAILY 07/16/21 12/31/21 Ammonium Lactate Lotion 1 applic TOPICAL BID 11/11/21 12/31/21 [Lac-Hydrin 12% Lotion] Amiodarone [Cordarone] 200 mg PO DAILY 12/31/21 12/31/21 Cholecalciferol (Vitamin D3) 2,500 units PO DAILY 12/31/21 12/31/21 [Vitamin D3 (2500 units)] Potassium Chloride [K-Tab ER] 20 meq PO DAILY 12/31/21 12/31/21 traMADol HCl [Ultram] 50 mg PO BID PRN 12/31/21 12/31/21 Previous Rx's Medication Instructions Recorded Metoprolol Tartrate [Lopressor] 50 mg PO BID #120 tab 09/07/22 tiZANidine [Zanaflex] 2 mg PO Q8HR PRN 90 Days #270 tab 12/06/21 Allergies Allergy/AdvReac Type Severity Reaction Status Date / Time amoxicillin Allergy Severe Unknown- Verified 01/05/22 02:07 was hospitalized spironolactone Allergy Unknown Verified 01/05/22 02:07 hydrocodone bitartrate AdvReac Confusion Verified 01/05/22 02:07 [From Vicodin] Review of Systems ROS Statement: Those systems with pertinent positive or pertinent negative responses have been documented in the HPI. ROS Other: All systems not noted in ROS Statement are negative. Past Medical History Past Medical History: Coronary Artery Disease (CAD), Cancer, Chest Pain / Angina, Heart Failure, Diabetes Mellitus, Hyperlipidemia, Hypertension, Myocardial Infarction ([place]), Renal Disease Additional Past Medical History / Comment(s): hx prostate cancer with surgery, chronic neck, bilateral shoulder and back pain, hx Gout, fatty tumor on right back, gallstones. [place]'s in 1980 and 2016. Ventricular Tachycardia. Ischemic Cardiomyopathy, left lung pulmonary embolism, non-dependent diabetes mellitus type 2, neuropathy b/l LE, chronic kidney disease stage IV, diverticular disease, gout, glaucoma right eye, congestive heart failure, hypertension, dyslipidemia, coronary artery disease having "gallbladder" symptoms Last Myocardial Infarction Date:: 2016 History of Any Multi-Drug Resistant Organisms: None Reported Past Surgical History: AICD, Back Surgery, Heart Catheterization, Hernia Repair, Pacemaker Additional Past Surgical History / Comment(s): CARDIOVERSION, lumbar surgery X2, cervical epidural injections, bilateral inguinal hernia repairs, TURP, colonoscopy, bilateral cataract removals., Heart Cath 03/22/20 Past Anesthesia/Blood Transfusion Reactions: No Reported Reaction Date of Last Stent Placement:: 10/18/16 Type of Cardiac Device: AICD Device Placement Date:: 01-10-17 Past Psychological History: No Psychological Hx Reported Smoking Status: Former smoker Past Alcohol Use History: None Reported Past Drug Use History: None Reported - Past Family History Mother History Unknown: Yes Family Medical History: Unable to Obtain Additional Family Medical History / Comment(s): Mother of unknown cause. Father History Unknown: Yes Family Medical History: Unable to Obtain Additional Family Medical History / Comment(s): Father of unknown cause. General Exam Limitations: no limitations General appearance: alert, in no apparent distress Head exam: Present: atraumatic, normocephalic, normal inspection Eye exam: Present: normal appearance, PERRL, EOMI. Absent: scleral icterus, conjunctival injection, periorbital swelling ENT exam: Present: normal exam, mucous membranes moist Neck exam: Present: normal inspection. Absent: tenderness, meningismus, lymphadenopathy Respiratory exam: Present: normal lung sounds bilaterally. Absent: respiratory distress, wheezes, rales, rhonchi, stridor Cardiovascular Exam: Present: regular rate, normal rhythm, normal heart sounds. Absent: systolic murmur, diastolic murmur, rubs, gallop, clicks GI/Abdominal exam: Present: soft, normal bowel sounds. Absent: distended, tenderness, guarding, rebound, rigid Extremities exam: Present: normal inspection, full ROM, normal capillary refill. Absent: tenderness, pedal edema, joint swelling, calf tenderness Back exam: Present: normal inspection Neurological exam: Present: alert, oriented X3, CN II-XII intact Psychiatric exam: Present: normal affect, normal mood Skin exam: Present: warm, dry, intact, normal color. Absent: rash Course Vital Signs 01/05/22 02:08 Temperature 97.6 F Pulse Rate 59 L Respiratory 32 H Rate Blood Pressure 173/94 O2 Sat by Pulse 97 Oximetry - Reevaluation(s) Reevaluation #1: 01/05/22 04:58 Attic record is reviewed Reevaluation #2: 01/05/22 04:58 Patient informed of results questions answered Reevaluation #3: 01/05/22 04:58 No improvement here in the ER patient does not fill comfortable with discharge believes that he is given a - Consultations Consultation #1: Spoke with sound who agree to admit the patient Medical Decision Making - Medical Decision Making 81 male to the emergency department for shortness of breath multiple episodes of recent recurrent syncope. No chest pain with dizziness. Episodes a, go to both 1 last night and one tonight. Patient will be admitted for evaluation of syncope - Lab Data Result diagrams: 01/05/22 02:44 01/05/22 02:44 Lab Results 01/05/22 01/05/22 01/05/22 Range/Units 02:44 02:44 02:44 WBC 10.4 (3.8-10.6) k/uL RBC 3.94 L (4.30-5.90) m/uL Hgb 10.6 L (13.0-17.5) gm/dL Hct 35.0 L (39.0-53.0) % MCV 88.8 (80.0-100.0) fL MCH 27.0 (25.0-35.0) pg MCHC 30.3 L (31.0-37.0) g/dL RDW 15.8 H (11.5-15.5) % Plt Count 247 (150-450) k/uL MPV 8.3 Neutrophils % 79 % Lymphocytes % 9 % Monocytes % 7 % Eosinophils % 4 % Basophils % 1 % Neutrophils # 8.2 H (1.3-7.7) k/uL Lymphocytes # 0.9 L (1.0-4.8) k/uL Monocytes # 0.7 (0-1.0) k/uL Eosinophils # 0.4 (0-0.7) k/uL Basophils # 0.1 (0-0.2) k/uL Hypochromasia Marked PT 10.3 (9.0-12.0) sec INR 0.9 (<1.2) APTT 24.9 (22.0-30.0) sec Sodium 139 (137-145) mmol/L Potassium 4.6 (3.5-5.1) mmol/L Chloride 103 (98-107) mmol/L Carbon Dioxide 23 (22-30) mmol/L Anion Gap 13 mmol/L BUN 38 H (9-20) mg/dL Creatinine 2.22 H (0.66-1.25) mg/dL Est GFR (CKD-EPI)AfAm 32 (>60 ml/min/1.73 sqM) Est GFR (CKD-EPI)NonAf 27 (>60 ml/min/1.73 sqM) Glucose 87 (74-99) mg/dL Plasma Lactic Acid Ozzy (0.7-2.0) mmol/L Calcium 9.0 (8.4-10.2) mg/dL Total Bilirubin 0.5 (0.2-1.3) mg/dL AST 42 (17-59) U/L ALT 66 H (4-49) U/L Alkaline Phosphatase 97 (38-126) U/L Troponin I (0.000-0.034) ng/mL Total Protein 7.0 (6.3-8.2) g/dL Albumin 4.0 (3.5-5.0) g/dL 01/05/22 01/05/22 Range/Units 02:44 02:44 WBC (3.8-10.6) k/uL RBC (4.30-5.90) m/uL Hgb (13.0-17.5) gm/dL Hct (39.0-53.0) % MCV (80.0-100.0) fL MCH (25.0-35.0) pg MCHC (31.0-37.0) g/dL RDW (11.5-15.5) % Plt Count (150-450) k/uL MPV Neutrophils % % Lymphocytes % % Monocytes % % Eosinophils % % Basophils % % Neutrophils # (1.3-7.7) k/uL Lymphocytes # (1.0-4.8) k/uL Monocytes # (0-1.0) k/uL Eosinophils # (0-0.7) k/uL Basophils # (0-0.2) k/uL Hypochromasia PT (9.0-12.0) sec INR (<1.2) APTT (22.0-30.0) sec Sodium (137-145) mmol/L Potassium (3.5-5.1) mmol/L Chloride (98-107) mmol/L Carbon Dioxide (22-30) mmol/L Anion Gap mmol/L BUN (9-20) mg/dL Creatinine (0.66-1.25) mg/dL Est GFR (CKD-EPI)AfAm (>60 ml/min/1.73 sqM) Est GFR (CKD-EPI)NonAf (>60 ml/min/1.73 sqM) Glucose (74-99) mg/dL Plasma Lactic Acid Ozzy 1.1 (0.7-2.0) mmol/L Calcium (8.4-10.2) mg/dL Total Bilirubin (0.2-1.3) mg/dL AST (17-59) U/L ALT (4-49) U/L Alkaline Phosphatase (38-126) U/L Troponin I <0.012 (0.000-0.034) ng/mL Total Protein (6.3-8.2) g/dL Albumin (3.5-5.0) g/dL - EKG Data -: EKG Interpreted by Me (Paced rhythm 60 MO 202 QRS 124 QTc 478) Disposition Clinical Impression: COPD exacerbation, CHF exacerbation, Dyspnea, Vertigo, Syncope Disposition: HOME SELF-CARE Condition: Good Is patient prescribed a controlled substance at d/c from ED?: No Referrals: Bruce Arnold MD [Primary Care Provider] - 1-2 days Time of Disposition: 05:00
[2022-01-05 03:09] LABS: Basophils # (A) 0.1 k/uL (0-0.2); Basophils % (A) 1 %; Eosinophils # (A) 0.4 k/uL (0-0.7); Eosinophils % (A) 4 %; HGB 10.6 gm/dL (13.0-17.5); Hypochromasia Marked; Lymphocytes # (A) 0.9 k/uL (1.0-4.8); Lymphocytes % (A) 9 %; MCHC 30.3 g/dL (31.0-37.0); MCV 88.8 fL (80.0-100.0); Mean Platelet Volume 8.3; Monocytes # (A) 0.7 k/uL (0-1.0); Monocytes % (A) 7 %; Neutrophils # (A) 8.2 k/uL (1.3-7.7); Neutrophils % (A) 79 %; Platelet Count 247 k/uL (150-450); RBC 3.94 m/uL (4.30-5.90); RDW 15.8 % (11.5-15.5); WBC 10.4 k/uL (3.8-10.6)
[2022-01-05 03:17] LABS: INR 0.9 (<1.2); Partial Thromboplastin Time 24.9 sec (22.0-30.0); Prothrombin Time 10.3 sec (9.0-12.0)
[2022-01-05 03:27] LABS: Potassium 4.6 mmol/L (3.5-5.1); Total Bilirubin 0.5 mg/dL (0.2-1.3)
--- NOTE | 2022-01-05 03:33 | XR ---
EXAMINATION TYPE: XR chest 2V DATE OF EXAM: 01/05/2022 COMPARISON: 05/03/2020 HISTORY: Short of breath TECHNIQUE: FINDINGS: Heart is enlarged. There is some coarsening of interstitial markings. No definite heart junior lure. No pleural effusion. There is left axillary pacemaker. There are chest leads. IMPRESSION: There is cardiomegaly which appears slightly more than last exam. No obvious heart failur e. There is probably some pulmonary fibrosis.
[2022-01-05] MEDS ORDERED: NALOXONE 0.4 MG/ML 1 ML VIAL IV PRN (04:53)
[2022-01-05] MEDS: SODIUM CHLORIDE 0.9% 1,000 ML IV SCH ×2 (07:46→15:12)
--- NOTE | 2022-01-05 09:43 | P.CRDCN ---
History of Present Illness Consult date: 01/05/22 Chief complaint: Syncopal History of present illness: This is a very pleasant 81-year-old gentleman with a past medical history significant for coronary artery disease and known chronic total occlusion of the RCA and intermediate lesion involving the left main as well as stenting of the LAD that based on heart catheterization in 2019 as well as ischemic cardiomyopathy as well as hypertension and dyslipidemia and history of syncope presented back to the hospital again complaining of syncope. He was seen by our service recently. The last echocardiogram from 2020 revealed impaired LV function with EF between 25-30%. He does have AICD in place. The patient presented back complaining of recurrent episodes of change in bowel post status some of them associated was complete loss of consciousness and some not. He is somewhat poor historian. These episodes happening with standing as well as with sitting. No warning symptoms. No associated chest pain or chest discomfort or shortness of breath. During his hospital stay he underwent an investigation including an EKG showing atrial paced rhythm. Cardiac enzymes were checked and came in to be unremarkable. The chest x-ray did not show any acute abnormalities. He underwent ALSO an orthostatic blood pressure check and that came in to be unremarkable. Past Medical History Past Medical History: Coronary Artery Disease (CAD), Cancer, Chest Pain / Angina, Heart Failure, Diabetes Mellitus, Hyperlipidemia, Hypertension, Myocardial Infarction ([place]), Renal Disease Additional Past Medical History / Comment(s): hx prostate cancer with surgery, chronic neck, bilateral shoulder and back pain, hx Gout, fatty tumor on right back, gallstones. [place]'s in 1980 and 2016. Ventricular Tachycardia. Ischemic Cardiomyopathy, left lung pulmonary embolism, non-dependent diabetes mellitus type 2, neuropathy b/l LE, chronic kidney disease stage IV, diverticular disease, gout, glaucoma right eye, congestive heart failure, hypertension, dyslipidemia, coronary artery disease having "gallbladder" symptoms Last Myocardial Infarction Date:: 2016 History of Any Multi-Drug Resistant Organisms: None Reported Past Surgical History: AICD, Back Surgery, Heart Catheterization, Hernia Repair, Pacemaker Additional Past Surgical History / Comment(s): CARDIOVERSION, lumbar surgery X2, cervical epidural injections, bilateral inguinal hernia repairs, TURP, colonoscopy, bilateral cataract removals., Heart Cath 03/22/20 Past Anesthesia/Blood Transfusion Reactions: No Reported Reaction Date of Last Stent Placement:: 10/18/16 Type of Cardiac Device: AICD Device Placement Date:: 01-10-17 Past Psychological History: No Psychological Hx Reported Additional Psychological History / Comment(s): Pt resides with his spouse. He uses a cane or walker. He drives. He is independent. Smoking Status: Former smoker Past Alcohol Use History: None Reported Additional Past Alcohol Use History / Comment(s): Started smoking in 1953, quit in 1982, 2ppd. Past Drug Use History: None Reported - Past Family History Mother History Unknown: Yes Family Medical History: Unable to Obtain Additional Family Medical History / Comment(s): Mother of unknown cause. Father History Unknown: Yes Family Medical History: Unable to Obtain Additional Family Medical History / Comment(s): Father of unknown cause. Medications and Allergies Home Medications Medication Instructions Recorded Confirmed Type Atorvastatin [Lipitor] 40 mg PO HS 01/07/17 12/31/21 History Losartan [Cozaar] 50 mg PO DAILY 03/22/19 12/31/21 History Gabapentin [Neurontin] 300 mg PO BID 01/10/20 12/31/21 History Apixaban [Eliquis] 5 mg PO BID 03/20/20 12/31/21 History Furosemide [Lasix] 40 mg PO BID 03/20/20 12/31/21 History calcitrioL [Calcitriol] 0.25 mcg PO FR 04/26/21 12/31/21 History allopurinoL [Zyloprim] 200 mg PO DAILY 07/16/21 12/31/21 History Ammonium Lactate Lotion 1 applic TOPICAL BID 11/11/21 12/31/21 History [Lac-Hydrin 12% Lotion] Metoprolol Tartrate [Lopressor] 50 mg PO BID #120 tab 11/14/21 01/01/22 Rx tiZANidine [Zanaflex] 2 mg PO Q8HR PRN 90 Days #270 tab 12/06/21 12/31/21 Rx Amiodarone [Cordarone] 200 mg PO DAILY 12/31/21 12/31/21 History Cholecalciferol (Vitamin D3) 2,500 units PO DAILY 12/31/21 12/31/21 History [Vitamin D3 (2500 units)] Potassium Chloride [K-Tab ER] 20 meq PO DAILY 12/31/21 12/31/21 History traMADol HCl [Ultram] 50 mg PO BID PRN 12/31/21 12/31/21 History Allergies Allergy/AdvReac Type Severity Reaction Status Date / Time amoxicillin Allergy Severe Unknown- Verified 01/05/22 02:07 was hospitalized spironolactone Allergy Unknown Verified 01/05/22 02:07 hydrocodone bitartrate AdvReac Confusion Verified 01/05/22 02:07 [From Vicodin] Physical Exam Vitals: Vital Signs Temp Pulse Pulse Pulse Pulse Pulse Resp 01/05/22 07:00 98.0 F 58 L 70 68 18 01/05/22 06:20 98.2 F 59 L 18 01/05/22 05:05 61 19 01/05/22 02:08 97.6 F 59 L 32 H BP BP BP BP BP Pulse Ox 01/05/22 07:00 176/84 173/84 177/98 100 01/05/22 06:20 189/81 100 01/05/22 05:05 175/83 98 01/05/22 02:08 173/94 97 Intake and Output 01/04/22 01/05/22 01/05/22 22:59 06:59 14:59 Intake Total 240 Balance 240 Intake: Oral 240 Other: # Voids 0 Weight 100.698 kg - Constitutional General appearance: no acute distress - Respiratory Respiratory: bilateral: CTA - Cardiovascular Rhythm: regular Abnormal Heart Sounds: systolic murmur Results 01/05/22 02:44 01/05/22 02:44 Cardiac Enzymes 01/05/22 01/05/22 01/05/22 Range/Units 02:44 02:44 06:21 AST 42 (17-59) U/L Troponin I <0.012 0.018 (0.000-0.034) ng/mL Coagulation 01/05/22 Range/Units 02:44 PT 10.3 (9.0-12.0) sec APTT 24.9 (22.0-30.0) sec CBC 01/05/22 Range/Units 02:44 WBC 10.4 (3.8-10.6) k/uL RBC 3.94 L (4.30-5.90) m/uL Hgb 10.6 L (13.0-17.5) gm/dL Hct 35.0 L (39.0-53.0) % Plt Count 247 (150-450) k/uL Comprehensive Metabolic Panel 01/05/22 Range/Units 02:44 Sodium 139 (137-145) mmol/L Potassium 4.6 (3.5-5.1) mmol/L Chloride 103 (98-107) mmol/L Carbon Dioxide 23 (22-30) mmol/L BUN 38 H (9-20) mg/dL Creatinine 2.22 H (0.66-1.25) mg/dL Glucose 87 (74-99) mg/dL Calcium 9.0 (8.4-10.2) mg/dL AST 42 (17-59) U/L ALT 66 H (4-49) U/L Alkaline Phosphatase 97 (38-126) U/L Total Protein 7.0 (6.3-8.2) g/dL Albumin 4.0 (3.5-5.0) g/dL Current Medications Generic Name Dose Route Start Last Admin Trade Name Freq PRN Reason Stop Dose Admin Sodium Chloride 1,000 mls @ 100 mls/hr 01/05/22 05:00 01/05/22 07:46 Saline 0.9% IV 100 mls/hr .Q10H ANGELIQUE Administration Naloxone HCl 0.2 mg 01/05/22 04:53 Naloxone 0.4 Mg/Ml 1 Ml Vial IV Q2M PRN Opioid Reversal Intake and Output 01/04/22 01/05/22 01/05/22 22:59 06:59 14:59 Intake Total 240 Balance 240 Intake: Oral 240 Other: # Voids 0 Weight 100.698 kg 01/05/22 02:44 01/05/22 02:44 Assessment and Plan Assessment: Assessment Recurrent episodes of change in mental status. I'm not quite sure if the patient is experiencing complete loss of consciousness CAD with prior stenting of the LAD and known chronic total occlusion of the RCA Severe ischemic cardiomyopathy Hypertension Dyslipidemia Multiple comorbid conditions including chronic pain Plan Acute coronary event was ruled out Orthostatic blood pressure check was performed and came in to be negative AICD interrogation Restart the patient back on the cardiomyopathy medications Further wait for the neurology input Follow-up with the patient
[2022-01-05 13:42] VITALS: BMI 31.8
[2022-01-05] MEDS ORDERED: NON FORMULARY DRUG (Alpha Lipoic Acid [Alpha Lipoic Acid] 600 MG Tablet) PO SCH (14:45)
--- NOTE | 2022-01-05 14:56 | P.HPIM ---
History of Present Illness H&P Date: 01/05/22 Chief Complaint: syncope Patient is a 81-year-old male with past medical history of CAD, ischemic cardiomyopathy status post AICD, systolic heart failure with EF of 25-30%, hypertension, dyslipidemia, history of syncope presenting today with syncope. Patient is a poor historian. Is complaining of multiple different medical problems at the same time. However, upon retraction patient claims that over the last 1 month he's been noticing increased number of syncopal episodes. He claims that he has some while standing as well as while resting. He describes them as gradually fading vision. He is unsure whether he has had falls previously. He is also been complaining of some shortness of breath over the last 2 days. Again, he is unsure whether he gets shortness of breath while resting or with ambulation. He uses a walker at home. Currently he is denying any chest pain, abdominal pain, nausea, vomiting, palpitations, urinary or bowel complaints. He denies any fevers, or chills. He denies any recent travel history or sick contacts. In the ED, his blood pressure was elevated to 170s systolic. Respiratory signs were otherwise normal. EKG showed atrial paced rhythm. Chest x-ray was unremarkable. Patient seen and examined at bedside. Pertinent positives and negatives as discussed in HPI, a complete review of systems was performed and all other systems are negative. Vital signs reviewed General: nontoxic, no distress, appears at stated age Derm: warm, dry Head: atraumatic, normocephalic, symmetric Eyes: EOMI, no lid lag, anicteric sclera, pupils equal round reactive to light ENT: Nose and ears atraumatic Neck: No thyromegaly, supple Mouth: no lip lesion, mucus membranes moist Cardiovascular: S1S2 reg, systolic murmur, no edema Lungs: clear to auscultation bilateral, no rhonchi, no rales, no wheeze, no accessory muscle use Abdominal: soft, nontender to palpation, no guarding, no appreciable organomegaly, normal bowel sounds Ext: no gross muscle atrophy, muscle strength muscle strength 5 out of 5 in all 4 extremities, no contractures Neuro: CN II-XII grossly intact Psych: Alert, oriented, appropriate affect Assessment/Plan: Possible syncope -Orthostatic negative -Patient has an AICD, interrogation pending -Troponin negative -Cardiology consulted -Could also possibly be related to medication use, patient currently remains on gabapentin, tizanidine, tramadol. Shortness of breath -Chest x-ray shows some evidence of interstitial markings concerning for pulmonary fibrosis -Oxygen as needed Hypertension -Restarted home medications Chronic medical problems: Coronary artery disease Ischemic cardiomyopathy, chronic systolic heart failure EF 25-30% Atrial fibrillation? Dyslipidemia Chronic back pain Lower extremity claudication Iron deficiency anemia Chronic kidney disease stage IV -Medications reviewed and reconciled The patient is admitted with an anticipated less than 2 midnight stay for evaluation of syncope. Surrogate decision-maker: Spouse CODE STATUS: Full code DVT prophylaxis: thierno Anticipated discharge date: 01/[address]: Home A total of 48 minutes was spent on the care of this complex patient more than 50% of the time was spent in counseling and care coordination. Past Medical History Past Medical History: Coronary Artery Disease (CAD), Cancer, Chest Pain / Angina, Heart Failure, Diabetes Mellitus, Hyperlipidemia, Hypertension, Myocardial Infarction ([place]), Renal Disease Additional Past Medical History / Comment(s): hx prostate cancer with surgery, chronic neck, bilateral shoulder and back pain, hx Gout, fatty tumor on right back, gallstones. [place]'s in 1980 and 2016. Ventricular Tachycardia. Ischemic Cardiomyopathy, left lung pulmonary embolism, non-dependent diabetes mellitus type 2, neuropathy b/l LE, chronic kidney disease stage IV, diverticular disease, gout, glaucoma right eye, congestive heart failure, hypertension, dyslipidemia, coronary artery disease having "gallbladder" symptoms Last Myocardial Infarction Date:: 2016 History of Any Multi-Drug Resistant Organisms: None Reported Past Surgical History: AICD, Back Surgery, Heart Catheterization, Hernia Repair, Pacemaker Additional Past Surgical History / Comment(s): CARDIOVERSION, lumbar surgery X2, cervical epidural injections, bilateral inguinal hernia repairs, TURP, co lonoscopy, bilateral cataract removals., Heart Cath 03/22/20 Past Anesthesia/Blood Transfusion Reactions: No Reported Reaction Date of Last Stent Placement:: 10/18/16 Type of Cardiac Device: AICD Device Placement Date:: 01-10-17 Past Psychological History: No Psychological Hx Reported Additional Psychological History / Comment(s): Pt resides with his spouse. He uses a cane or walker. He drives. He is independent. Smoking Status: Former smoker Past Alcohol Use History: None Reported Additional Past Alcohol Use History / Comment(s): Started smoking in 6, quit in 1982, 2ppd. Past Drug Use History: None Reported - Past Family History Mother History Unknown: Yes Family Medical History: Unable to Obtain Additional Family Medical History / Comment(s): Mother of unknown cause. Father History Unknown: Yes Family Medical History: Unable to Obtain Additional Family Medical History / Comment(s): Father of unknown cause. Medications and Allergies Home Medications Medication Instructions Recorded Confirmed Type Atorvastatin [Lipitor] 40 mg PO HS 01/07/17 01/05/22 History Losartan [Cozaar] 50 mg PO DAILY 03/22/19 01/05/22 History Gabapentin [Neurontin] 300 mg PO BID 01/10/20 01/05/22 History Apixaban [Eliquis] 5 mg PO BID 03/20/20 01/05/22 History Furosemide [Lasix] 40 mg PO BID 03/20/20 01/05/22 History calcitrioL [Calcitriol] 0.25 mcg PO Q7D 04/26/21 01/05/22 History allopurinoL [Zyloprim] 100 mg PO BID 07/16/21 01/05/22 History Ammonium Lactate Lotion 1 applic TOPICAL DAILY 11/11/21 01/05/22 History [Lac-Hydrin 12% Lotion] traMADol HCl [Ultram] 50 mg PO BID PRN 12/31/21 01/05/22 History Acetaminophen [Tylenol Arthritis] 650 mg PO BID 01/05/22 01/05/22 History Alpha Lipoic Acid 600 mg PO DAILY 01/05/22 01/05/22 History Cholecalciferol [Vitamin D3 (25 50 mcg PO DAILY 01/05/22 01/05/22 History Mcg = 1000 Iu)] Clotrimazole [Clotrimazole AF] 1 applic TOPICAL DAILY PRN 01/05/22 01/05/22 History Dorzolamide/Timolol/Pf 1 drop BOTH EYES HS 01/05/22 01/05/22 History [Dorzolamide 2%-Timolol 0.5%] Latanoprost [Latanoprost 0.005%] 1 drop BOTH EYES HS 01/05/22 01/05/22 History calcium polycarbophiL [Fibercon] 625 mg PO BID 01/05/22 01/05/22 History tiZANidine [Zanaflex] 2 mg PO BID 01/05/22 01/05/22 History Allergies Allergy/AdvReac Type Severity Reaction Status Date / Time amoxicillin Allergy Severe Unknown- Verified 01/05/22 13:25 was hospitalized spironolactone Allergy Unknown Verified 01/05/22 13:25 hydrocodone bitartrate AdvReac Confusion Verified 01/05/22 13:25 [From Vicodin] Physical Exam Vitals: Vital Signs Temp Pulse Pulse Pulse Pulse Pulse Resp 01/05/22 07:00 98.0 F 58 L 70 68 18 01/05/22 06:20 98.2 F 59 L 18 01/05/22 05:05 61 19 01/05/22 02:08 97.6 F 59 L 32 H BP BP BP BP BP Pulse Ox 01/05/22 07:00 176/84 173/84 177/98 100 01/05/22 06:20 189/81 100 01/05/22 05:05 175/83 98 01/05/22 02:08 173/94 97 Intake and Output 01/04/22 01/05/22 01/05/22 22:59 06:59 14:59 Intake Total 240 Balance 240 Intake: Oral 240 Other: # Voids 0 Weight 100.698 kg 100.698 kg Results CBC & Chem 7: 01/05/22 02:44 01/05/22 02:44 Labs: Abnormal Lab Results - Last 24 Hours (Table) 01/05/22 01/05/22 Range/Units 02:44 02:44 RBC 3.94 L (4.30-5.90) m/uL Hgb 10.6 L (13.0-17.5) gm/dL Hct 35.0 L (39.0-53.0) % MCHC 30.3 L (31.0-37.0) g/dL RDW 15.8 H (11.5-15.5) % Neutrophils # 8.2 H (1.3-7.7) k/uL Lymphocytes # 0.9 L (1.0-4.8) k/uL BUN 38 H (9-20) mg/dL Creatinine 2.22 H (0.66-1.25) mg/dL ALT 66 H (4-49) U/L Thrombosis Risk Factor Assmnt - Choose All That Apply Each Factor Represents 1 point: Abnormal pulmonary function (COPD), Obesity (BMI >25) Each Risk Factor Represents 3 Points: Age 75 years or older Other congenital or acquired thrombophilia - If yes, enter type in comment: No Thrombosis Risk Factor Assessment Total Risk Factor Score: 5 Thrombosis Risk Factor Assessment Level: High Risk
[2022-01-05] MEDS: traMADol 50 MG TAB PO PRN (15:09)
[2022-01-05] MEDS: ACETAMINOPHEN TAB 325 MG TAB PO SCH (17:46)
[2022-01-05] MEDS: GABAPENTIN 300 MG CAP PO SCH (20:11)
[2022-01-05] MEDS: APIXABAN 5 MG TAB PO SCH (20:37)
[2022-01-05] MEDS: FUROSEMIDE 40 MG TAB PO SCH (20:37)
[2022-01-05] MEDS: allopurinoL 100 MG TAB PO SCH (20:37)
[2022-01-05] MEDS: tiZANidine 4 MG TAB PO SCH (20:38)
[2022-01-05] MEDS ORDERED: ATORVASTATIN 40 MG TAB PO SCH (21:00)
[2022-01-05] MEDS ORDERED: MELATONIN 3 MG TABLET PO SCH (22:15)
[2022-01-06] MEDS: traMADol 50 MG TAB PO PRN ×2 (01:04→05:57)
[2022-01-06] MEDS: SODIUM CHLORIDE 0.9% 1,000 ML IV SCH ×2 (02:44→05:58)
[2022-01-06] MEDS: ACETAMINOPHEN TAB 325 MG TAB PO SCH (08:17)
[2022-01-06] MEDS: FUROSEMIDE 40 MG TAB PO SCH (08:18)
[2022-01-06] MEDS: allopurinoL 100 MG TAB PO SCH (08:18)
[2022-01-06] MEDS: GABAPENTIN 300 MG CAP PO SCH (08:18)
[2022-01-06] MEDS: APIXABAN 5 MG TAB PO SCH (08:18)
[2022-01-06] MEDS: tiZANidine 4 MG TAB PO SCH (08:19)
[2022-01-06] MEDS ORDERED: CHOLECALCIFEROL 25 MCG (1000 IU) TABLET PO SCH (09:00)
[2022-01-06] MEDS ORDERED: LOSARTAN 50 MG TAB PO SCH ×2 (09:00)
[2022-01-06] MEDS ORDERED: carvediloL 3.125 MG TAB PO SCH (09:00)
[2022-01-06 09:04] VITALS: PULSE 78; RESP 20; TEMP 97.7
[2022-01-06] MEDS ORDERED: LOSARTAN 50 MG TAB PO ONE (10:00)
--- NOTE | 2022-01-06 10:47 | XR ---
EXAMINATION TYPE: XR chest 2V DATE OF EXAM: 01/06/2022 COMPARISON: 01/05/2022 INDICATION: Short of breath TECHNIQUE: Single frontal view of the chest is obtained. FINDINGS: The heart size is mildly prominent. The pulmonary vasculature is prominent. Diffuse increased lung markings are present bilaterally. Asymmetric overlies left chest. IMPRESSION: 1. Mild cardiomegaly with developing diffuse increased lung markings. Correlate for pulmonary edema a nd congestive heart failure. Follow-up is recommended.
[2022-01-06 11:16] LABS: Basophils # (A) 0.03 X 10*3/uL (0.00-0.10); Basophils % (A) 0.3 %; Eosinophils # (A) 0.28 X 10*3/uL (0.04-0.35); Eosinophils % (A) 2.8 %; HCT 32.4 % (39.6-50.0); HGB 9.4 g/dL (13.0-17.0); Immature Grans, Automated 0.4 %; Lymphocytes # (A) 0.69 X 10*3/uL (0.90-5.00); Lymphocytes % (A) 6.9 %; MCH 25.7 pg (27.0-32.0); MCV 88.5 fL (80.0-97.0); Mean Platelet Volume 10.7 fL (9.5-12.2); Monocytes # (A) 0.94 X 10*3/uL (0.20-1.00); Monocytes % (A) 9.3 %; NRBC Per 100 WBC 0 /100 WBCS (0.0-0.0); Neutrophils # (A) 8.09 X 10*3/uL (1.80-7.70); Neutrophils % (A) 80.3 %; Platelet Count 241 X 10*3/uL (140-440); RBC 3.66 X 10*6/uL (4.40-5.60); RDW 15.4 % (11.5-14.5); WBC 10.07 X 10*3/uL (4.50-10.00)
[2022-01-06 12:04] VITALS: BP 159/85
[2022-01-06 12:18] LABS: African American GFR (CKD) 44.4 (60.0-200.0); Anion Gap 9.4 mmol/L (10.00-18.00); BUN/Creat Ratio 17.43 Ratio (12.00-20.00); Blood Urea Nitrogen 29.1 mg/dL (9.0-27.0); Calcium 8.8 mg/dL (8.7-10.3); Carbon Dioxide 23.7 mmol/L (20.0-27.5); Non-African American GFR(CKD) 38.3 (60.0-200.0); Potassium 4.4 mmol/L (3.5-5.5)
--- NOTE | 2022-01-06 14:58 | P.DS ---
Providers Date of admission: 01/05/22 04:57 Expected date of discharge: 01/06/22 Attending physician: Nereyda Palafox MD Consults: 01/05/22 04:53 Consult Physician Routine Consulting Provider: Beltran Bañuelos Consult Reason/Comments: syncope Do you want consulting provider notified?: Yes Primary care physician: Bruce Arnold MD Hospital Course: Discharge Diagnosis: Possible syncope Shortness of breath Hypertension Polypharmacy Possible pulmonary fibrosis Ischemic cardiomyopathy Chronic systolic heart failure, EF 25-30% Atrial fibrillation Hospital Course: 81-year-old male with past medical history of CAD, ischemic cardiomyopathy status post AICD, systolic heart failure with EF of 25-30%, hypertension, dyslipidemia, history of syncope presenting this hospitalization with syncope. Patient was a poor historian. Patient evaluated by cardiology. Device interrogation completed, no recent events. Troponin negative. Orthostatic vitals negative. Chest x-ray showed mild cardiomegaly with diffuse interstitial markings possibly concerning for pulmonary edema or pulmonary fibrosis. Patient is on room air at discharge. EKG showed atrial paced rhythm. Syncopal episodes could be related to polypharmacy, patient currently is on gabapentin, tizanidine, and tramadol. Patient was also hypertensive during his stay. He was started on losartan and carvedilol. 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 Patient seen and examined at bedside. Vital signs reviewed and stable. General: nontoxic, no distress, appears at stated age Derm: warm, dry Head: atraumatic, normocephalic, symmetric Eyes: EOMI, no lid lag, anicteric sclera, pupils equal round reactive to light ENT: Nose and ears atraumatic Neck: No thyromegaly, supple Mouth: no lip lesion, mucus membranes moist Cardiovascular: S1S2 reg, systolic murmur, no edema Lungs: clear to auscultation bilateral, no rhonchi, no rales, no wheeze, no accessory muscle use Abdominal: soft, nontender to palpation, no guarding, no appreciable organomegaly, normal bowel sounds Ext: no gross muscle atrophy, muscle strength muscle strength 5 out of 5 in all 4 extremities, no contractures Neuro: CN II-XII grossly intact Psych: Alert, oriented, appropriate affect A total of 47 minutes of time were spent preparing this complex discharge summary. Patient was discharged on 01/06/22 at 11:43. Patient Condition at Discharge: Stable Plan - Discharge Summary Discharge Rx Participant: No New Discharge Prescriptions: New carvediloL [Coreg] 3.125 mg PO BID-W/MEALS #30 tab Melatonin 3 mg PO HS #30 tab Losartan [Cozaar] 100 mg PO DAILY #30 tab Continue Atorvastatin [Lipitor] 40 mg PO HS Gabapentin [Neurontin] 300 mg PO BID Furosemide [Lasix] 40 mg PO BID Apixaban [Eliquis] 5 mg PO BID calcitrioL [Calcitriol] 0.25 mcg PO Q7D Alpha Lipoic Acid 600 mg PO DAILY Cholecalciferol [Vitamin D3 (25 Mcg = 1000 Iu)] 50 mcg PO DAILY allopurinoL [Zyloprim] 100 mg PO BID Ammonium Lactate Lotion [Lac-Hydrin 12% Lotion] 1 applic TOPICAL DAILY traMADol HCl [Ultram] 50 mg PO BID PRN PRN Reason: Pain tiZANidine [Zanaflex] 2 mg PO BID Acetaminophen [Tylenol Arthritis] 650 mg PO BID Latanoprost [Latanoprost 0.005%] 1 drop BOTH EYES HS calcium polycarbophiL [Fibercon] 625 mg PO BID Dorzolamide/Timolol/Pf [Dorzolamide 2%-Timolol 0.5%] 1 drop BOTH EYES HS Clotrimazole [Clotrimazole AF] 1 applic TOPICAL DAILY PRN PRN Reason: Skin Irritation Discontinued Losartan [Cozaar] 50 mg PO DAILY Discharge Medication List Atorvastatin [Lipitor] 40 mg PO HS 01/07/17 [History] Gabapentin [Neurontin] 300 mg PO BID 01/10/20 [History] Apixaban [Eliquis] 5 mg PO BID 03/20/20 [History] Furosemide [Lasix] 40 mg PO BID 03/20/20 [History] calcitrioL [Calcitriol] 0.25 mcg PO Q7D 04/26/21 [History] allopurinoL [Zyloprim] 100 mg PO BID 07/16/21 [History] Ammonium Lactate Lotion [Lac-Hydrin 12% Lotion] 1 applic TOPICAL DAILY 11/11/21 [History] traMADol HCl [Ultram] 50 mg PO BID PRN 12/31/21 [History] Acetaminophen [Tylenol Arthritis] 650 mg PO BID 01/05/22 [History] Alpha Lipoic Acid 600 mg PO DAILY 01/05/22 [History] Cholecalciferol [Vitamin D3 (25 Mcg = 1000 Iu)] 50 mcg PO DAILY 01/05/22 [History] Clotrimazole [Clotrimazole AF] 1 applic TOPICAL DAILY PRN 01/05/22 [History] Dorzolamide/Timolol/Pf [Dorzolamide 2%-Timolol 0.5%] 1 drop BOTH EYES HS 01/05/22 [History] Latanoprost [Latanoprost 0.005%] 1 drop BOTH EYES HS 01/05/22 [History] calcium polycarbophiL [Fibercon] 625 mg PO BID 01/05/22 [History] tiZANidine [Zanaflex] 2 mg PO BID 01/05/22 [History] Losartan [Cozaar] 100 mg PO DAILY #30 tab 01/06/22 [Rx] Melatonin 3 mg PO HS #30 tab 01/06/22 [Rx] carvediloL [Coreg] 3.125 mg PO BID-W/MEALS #30 tab 01/06/22 [Rx] Follow up Appointment(s)/Referral(s): Bert Zuñiga MD [STAFF PHYSICIAN] - 1 Week Bruce Arnold MD [Primary Care Provider] - 1-2 days Patient Instructions/Handouts: Heart Failure (ER), Syncope (DC) Activity/Diet/Wound Care/Special Instructions: Please see PCP in 1-2 days. Please see cardiology in 1-2 weeks. Discharge Disposition: HOME SELF-CARE
[2022-01-07] MEDS ORDERED: LOSARTAN 50 MG TAB PO SCH (09:00)
--- NOTE | 2022-01-07 10:13 | CA ---
Transthoracic Echo Report Name: Ben Vega Age: 81 Gender: M : 1940 Exam Date: 01/05/2022 13:07 Exam Location: [facility] Ht (in): 70 Wt (lb): 222 Ordering Physician: Dharmesh De Anda DO Attending/Referring Phys: [id number], [employer] Receiving Supervisor Noreen Castillo RDCS Procedure CPT: Indications: Heart failure Cardiac Hx: Technical Quality: Technically difficult study Contrast 1: Lumason Total Dose (mL): 4 Contrast 2: Total Dose (mL): MEASUREMENTS (Male / Female) Normal Values 2D ECHO LV Diastolic Diameter PLAX 5.9 cm 4.2 - 5.9 / 3.9 - 5.3 cm LV Systolic Diameter PLAX 5.3 cm IVS Diastolic Thickness 1.3 cm 0.6 - 1.0 / 0.6 - 0.9 cm LVPW Diastolic Thickness 1.4 cm 0.6 - 1.0 / 0.6 - 0.9 cm LV Relative Wall Thickness 0.5 RV Internal Dim ED PLAX 3.2 cm LA Volume 84.6 cm??? 18 - 58 / 22 - 52 cm??? M-MODE Aortic Root Diameter MM 3.1 cm LA Systolic Diameter MM 4.4 cm LA Ao Ratio MM 1.4 AV Cusp Separation MM 2.2 cm DOPPLER AV Peak Velocity 123.7 cm/s AV Peak Gradient 6.1 mmHg LVOT Peak Velocity 80.5 cm/s LVOT Peak Gradient 2.6 mmHg MV Area PHT 3.7 cm??? Mitral E Point Velocity 98.2 cm/s Mitral A Point Velocity 106.3 cm/s Mitral E to A Ratio 0.9 MV Deceleration Time 203.3 ms MV E' Velocity 4.0 cm/s Mitral E to MV E' Ratio 24.9 TR Peak Velocity 288.0 cm/s TR Peak Gradient 33.2 mmHg Right Ventricular Systolic Press 38.2 mmHg FINDINGS Left Ventricle Mildly increased left ventricular wall thickness. Mild left ventricular dilatation. Severely increased left ventricular wall thickness. Left ventricular ejection fraction is estimated at 25-30 %. Right Ventricle Normal right ventricular size and function. Mild pulmonary hypertension. Right Atrium Right atrium not well visualized. Left Atrium Severely increased left atrial volume. Mitral Valve Mild mitral annular calcification. Moderate mitral regurgitation. Aortic Valve No aortic stenosis. No aortic regurgitation. Tricuspid Valve Mild to moderate tricuspid regurgitation. Pulmonic Valve Trace pulmonic regurgitation. Pericardium No pericardial effusion. Aorta Normal size aortic root and proximal ascending aorta. CONCLUSIONS Impaired only function was EF between 25-30% Moderate mitral regurgitation [id number] tricuspid regurgitation Previewed by: Dr. Minor Larios MD (Electronically Signed) Final Date: 06 January 2022 08:12
== END 2022-01-06 15:17 | disposition home or self-care (01) ==
LOC: EC 02:06 → 6NMEDSUR 04:57
PROVIDERS: ADMIT Internal Medicine; ATTEND Internal Medicine
DX: R55 Syncope and collapse (principal); I25.10 Atherosclerotic heart disease of native coronary artery without angina pectoris; I13.0 Hypertensive heart and chronic kidney disease with heart failure and stage 1 through stage 4 chronic kidney disease, or unspecified chronic kidney disease; I50.22 Chronic systolic (congestive) heart failure; I48.91 Unspecified atrial fibrillation; E78.5 Hyperlipidemia, unspecified; I25.2 Old myocardial infarction; M10.9 Gout, unspecified; E11.22 Type 2 diabetes mellitus with diabetic chronic kidney disease; N18.4 Chronic kidney disease, stage 4 (severe); E11.42 Type 2 diabetes mellitus with diabetic polyneuropathy; I27.20 Pulmonary hypertension, unspecified; D50.9 Iron deficiency anemia, unspecified; I25.5 Ischemic cardiomyopathy; I08.1 Rheumatic disorders of both mitral and tricuspid valves; I37.1 Nonrheumatic pulmonary valve insufficiency; Z79.899 Other long term (current) drug therapy; Z85.46 Personal history of malignant neoplasm of prostate; Z86.711 Personal history of pulmonary embolism; Z79.01 Long term (current) use of anticoagulants; Z88.0 Allergy status to penicillin; Z95.810 Presence of automatic (implantable) cardiac defibrillator; Z98.42 Cataract extraction status, left eye; Z98.41 Cataract extraction status, right eye; Z87.81 Personal history of (healed) traumatic fracture; Z87.891 Personal history of nicotine dependence
CPT/HCPCS: 96360; 96361; 99285; 36415; 93005; 80053; 80048; 83605; 84484; 85025 ×2; 85610; 85730; 71046 ×2; G0378 ×2; C8929; Q9950; 93306

== ENCOUNTER → 2022-01-21 | Outpatient (CLI) | payer MEDICARE, BC ==
[2022-01-21 14:16] VITALS: BP 155/70; PULSE 55; RESP 18; TEMP 98.1
--- NOTE | 2022-01-21 14:40 | P.PAINPG ---
PQRS Measure Charge Sheet Comment: A 81 yr old male w at side with a history of severe and chronic neck pain secondary to cervical DDD and spondylosis with facet arthropathy without myelopathy presents today for evaluation s/p SISSY C6-7. Pt states he experienced 0% pain relief x 3 wks s/p procedure. Pain level is currently at 8/10 in i ntensity, constant, localized in the lower cervical spine, achy w shooting towards the BL shoulders, R>L. Pain is provoked by rotation and hyperextension. Pain is alleviated with PT in August 2021 which provoked pain, massage integrated w PT, home exercises too painful, heat, ice, medications (Neurontin from Dr Gonzalez), inactivity and rest. Interventional pain procedures completed include SISSY C6-C7 x3. Patient is currently on Neurontin Patient denies any side effects of the medication(s), denies excessive drowsiness or sleepiness, denies suicidal ideation and reports that the current pain medication is helping to control the pain and improve activities of daily living. Patient denies any motor or sensory deficits. Patient denies any fever or night sweats, denies any change in the bowel movements or urination. Physical Examination: -Constitutional: Cooperative. Not in acute distress . - Neurologic: Cranial nerve II to XII intact. No focal neurological deficits. - Psychatric: Alert & oriented x 3. Matching mood & appropriate affect. Judgment and insight intact. - Musculoskeletal: Cervical spine: Muscle bulk/ tone/ strength in the bilateral upper extremities normal Vertebral body tenderness to palpation over C6, C7 Spurling test positive Distraction test positive Facet loading test positive Thoracic spine Muscle bulk / tone/ strength in the bilateral paraspinal muscles normal Vertebral body tender to palpation over Facet loading test positive Lumbar spine: Motor bulk/ tone/ strength lower extremities , thigh and legs : 5/5 Deep tendon reflexes : Normal Knee Jerk. Normal Ankle Jerk . Vertebral body tenderness to palpation over Lumbar Facet Loading Test positive Straight Leg Raise: positive at 30 degrees right side/ left side Gaenslen's Test positive Sacral spine : Severe tenderness over the Sacroiliac joint: right side / left side Range of motion: Flexion of the lumbar spine <60 degrees Range of motion: Extension of the lumbar spine <20 degrees Gaenslen's Test positive Stephanie test: positive right side / left side Thigh Thrust Test Sacral Thrust Test Assessment and plan: Chronic neck pain secondary to cervical DDD, spondylosis with facet arthropathy without myelopathy Chronic and current use of high-risk medication (Opioids). The patient was counseled about risk of opioid use, psychological risk associated with opioids and was orally counseled to not overuse , divert or sell medications. Pt is to store medication in a safe location. The patient is counseled against driving while using narcotic medications and also not to use alcohol or any illicit recreational drugs. Patient verbalized understanding that the lack of compliance will result in failure to renew narcotic prescription(s) as well as possible discharge from the clinic Diagnoses, prognosis and treatment options including but not limited to physical therapy, surgical interventions, interventional therapies and medication management including narcotics and adjuvant medication were discussed. All patient questions answered MAPS reviewed and it was appropriate. Prescription for Tramadol 50mg #60 w 1 RF. Opiate and narcotic agreement signed today 01/21/22 . I have spent less than 30 minutes on patient care today. Dr Anton was available by phone for the evaluation of this patient. The time was used to review the medical records including relevant urine studies and Prescription history (MAPs), review of the available imaging, evaluation and examination of the patient, coordination of care with the medical staff and if applicable referring physicians, as well as creation of the medical record PQRS Narrative: Smoking Status Former smoker Hx Alcohol Use (MH) No Home Medications: Ambulatory Orders Atorvastatin [Lipitor] 40 mg PO HS 01/07/17 Gabapentin [Neurontin] 300 mg PO BID 01/10/20 Apixaban [Eliquis] 5 mg PO BID 03/20/20 Furosemide [Lasix] 40 mg PO BID 03/20/20 calcitrioL [Calcitriol] 0.25 mcg PO Q7D 04/26/21 allopurinoL [Zyloprim] 100 mg PO BID 07/16/21 Ammonium Lactate Lotion [Lac-Hydrin 12% Lotion] 1 applic TOPICAL DAILY 11/11/21 Acetaminophen [Tylenol Arthritis] 650 mg PO BID 01/05/22 Alpha Lipoic Acid 600 mg PO DAILY 01/05/22 Cholecalciferol [Vitamin D3 (25 Mcg = 1000 Iu)] 50 mcg PO DAILY 01/05/22 Clotrimazole [Clotrimazole AF] 1 applic TOPICAL DAILY PRN 01/05/22 Dorzolamide/Timolol/Pf [Dorzolamide 2%-Timolol 0.5%] 1 drop BOTH EYES HS 01/05/22 Latanoprost [Latanoprost 0.005%] 1 drop BOTH EYES HS 01/05/22 calcium polycarbophiL [Fibercon] 625 mg PO BID 01/05/22 tiZANidine [Zanaflex] 2 mg PO BID 01/05/22 Losartan [Cozaar] 100 mg PO DAILY #30 tab 01/06/22 Metoprolol Tartrate [Lopressor] 50 mg PO DAILY 01/17/22 traMADol HCl [Ultram] 50 mg PO BID PRN 30 Days #60 tab 01/21/22 Controlled Substance Measures - Controlled Substance Measures Is patient prescribed a controlled substance at discharge?: No
== END | disposition home or self-care (01) ==
LOC: PNWHC3 12:18
PROVIDERS: ATTEND Specialist
DX: M50.30 Other cervical disc degeneration, unspecified cervical region (principal); M47.892 Other spondylosis, cervical region; M46.92 Unspecified inflammatory spondylopathy, cervical region
CPT/HCPCS: 99211

== ENCOUNTER 2022-01-22 06:28 | Day surgery (SDC) | payer MEDICARE, BC ==
[2022-01-17 10:40] VITALS: BMI 32.3
[~2022-01-22 06:28] MED LIST changes: +ALPRAZolam 0.25 MG TAB PO PRN; +ALPRAZolam 0.5 MG TAB PO PRN; +ASPIRIN 325 MG TAB PO STA; +ATORVASTATIN 80 MG TAB PO STA; +HEPARIN SODIUM,PORCINE 10,000 UNIT in SODIUM CHLORIDE 0.9% 1,000 ML IRRIGATION PRN; +HEPARIN SODIUM,PORCINE 2,500 UNIT in SODIUM CHLORIDE 0.9% 250 ML IRRIGATION PRN; -LACTATED RINGERS 1,000 ML IV SCH; -LIDOCAINE 1% (10MG/ML) FOR IV START INTRADERMA PRN; +NITROGLYCERIN SL TABS 0.4 MG TAB SUBLINGUAL PRN; +SODIUM CHLORIDE 0.9% 1,000 ML in EMPTY BAG 1 BAG IV SCH
[2022-01-22] MEDS ORDERED: SODIUM CHLORIDE 0.9% 1,000 ML IV ONE (07:26)
[2022-01-22 07:27] LABS: Glucose,Whole Blood 134 mg/dL (70-110)
[2022-01-22 07:43] LABS: Basophils # (A) 0.1 k/uL (0-0.2); Basophils % (A) 1 %; Eosinophils # (A) 0.4 k/uL (0-0.7); Eosinophils % (A) 4 %; HCT 35.7 % (39.0-53.0); HGB 11.1 gm/dL (13.0-17.5); Hypochromasia Marked; Lymphocytes # (A) 1.1 k/uL (1.0-4.8); Lymphocytes % (A) 12 %; MCV 87.2 fL (80.0-100.0); Mean Platelet Volume 8.6; Monocytes # (A) 0.5 k/uL (0-1.0); Monocytes % (A) 6 %; Neutrophils # (A) 7.4 k/uL (1.3-7.7); Neutrophils % (A) 77 %; Platelet Count 286 k/uL (150-450); RBC 4.09 m/uL (4.30-5.90); RDW 15.2 % (11.5-15.5); WBC 9.6 k/uL (3.8-10.6)
[2022-01-22 07:49] VITALS: TEMP 98.7
[2022-01-22] MEDS ORDERED: VERAPAMIL 2.5 MG/ML 2 ML AMP ONE (11:40)
[2022-01-22] MEDS ORDERED: HEPARIN SODIUM 1,000 UN/ML (10ML VL) ONE (11:40)
[2022-01-22] MEDS ORDERED: LIDOCAINE 1% INJ 10MG/ML (30 ML VIAL-PF) SQ ONE (11:56)
[2022-01-22] MEDS ORDERED: MIDAZOLAM 2 MG/2 ML VIAL IV ONE (11:56)
[2022-01-22] MEDS ORDERED: VERAPAMIL SYRINGE (5 MG/10 ML) INTRAARTER ONE (11:59)
[2022-01-22] MEDS ORDERED: HEPARIN SODIUM 1,000 UN/ML (10ML VL) IV ONE (12:08)
[2022-01-22] MEDS ORDERED: traMADol 50 MG TAB PO PRN (12:29)
[2022-01-22] MEDS ORDERED: RX INFO: IV CONTRAST WAS GIVEN 1 EACH MISC MISCELLANE PRN (12:33)
[2022-01-22] MEDS ORDERED: IOPAMIDOL-370 100ML BTL INJ ONE (12:49)
[2022-01-22] MEDS ORDERED: ISOSORBIDE MONONITRATE ER 30 MG TAB.ER.24H PO SCH (14:45)
[2022-01-22 17:16] VITALS: PULSE 56; RESP 16
[2022-01-22 17:21] VITALS: BP 209/93
--- NOTE | 2022-01-22 19:59 | CC ---
CARDIAC CATHETERIZATION REPORT PROCEDURES PERFORMED: 1. Left heart catheterization. 2. Coronary angiography. PERFORMED BY: Dr. Alison Zuñiga. Moderate conscious sedation time was 38 minutes. The patient was administered Versed. Oxygen saturation, hemodynamics, and EKG were monitored closely. CLINICAL INFORMATION: Mr. Ben Vega is a 81-year-old gentleman with a known history of ischemic cardiomyopathy and previous RCA occlusion, and also, he has had a history of ICD placement. He has been having increasing shortness of breath even with mild day-to-day activity. He had a cardiac catheterization in March of 2020, which revealed that the previously-stented LAD was patent, and circumflex had no more than 40% to 50% narrowing, and RCA was totally occluded with collateralization from the left system. Because of increasing symptoms of shortness of breath suggesting that this may be an anginal equivalence, I recommended coronary angiography. He is also known to have a 90% stenosis in the small second diagonal branch, which was noted in March. PROCEDURE NOTE: Under local anesthesia and strict aseptic precautions, a 6-Dutch introducer was placed in the right radial artery. There was extreme tortuosity of the ascending aorta. However, I was able to get LV pressures with the right catheter. The patient also has a chronic kidney disease; and therefore, I was using the least amount of contrast. I checked LV pressures with the right catheter. End-diastolic pressure was about 14 mmHg without any gradient. However, I did not do a right injection mainly because of the concern that we wanted to give him the least amount of contrast. I tried to exchange with the wire for a left catheter, but because of tortuosity, I had difficulty bringing the left catheter down. I then decided to switch to the femoral approach. Under local anesthesia and strict aseptic precautions, a 6-Dutch introducer was placed in the right femoral artery. Using a JL3.5 catheter, I performed selective coronary angiography of the left system. The patient did not have any significant progression of disease. Findings were explained to the patient and , and sheath was taken out, and Angio-Seal device was used to secure hemostasis. A TR band was applied to the right wrist. Saturation in the fingers of the right hand was 100%. The patient tolerated the procedure well without complications. CARDIAC CATHETERIZATION FINDINGS: Left ventricular end-diastolic pressure was about 14 to 15 mmHg without any gradient across aortic valve. CORONARY ANGIOGRAPHY FINDINGS: RIGHT CORONARY ARTERY: It was not injected since it was totally occluded before. LEFT MAIN CORONARY ARTERY: Short, patent vessel, has mild disease towards the distal portion, but no significant disease. Probably, 10% or less. It bifurcates into LAD and circumflex. LEFT ANTERIOR DESCENDING CORONARY ARTERY: Good-caliber vessel extends along the anterior wall. Stented segment is widely patent. Second diagonal is small in caliber and distribution, has 80% to 90% ostial lesion, unchanged from before. LAD distally has mild diffuse disease. No significant disease in the LAD system. Stented segment in the proximal LAD is widely patent. LEFT POSTERIOR CIRCUMFLEX CORONARY ARTERY: Nondominant vessel, has about 40% proximal lesion, gives off a good-sized obtuse marginal, and runs in the AV groove. The AV groove branch provides rich collaterals to the right coronary artery distribution and opacifies the distal branches of RCA. Circumflex, therefore, has a 40% mid lesion, unchanged angiographically from the previous study from March. FINAL IMPRESSION: This patient has total occlusion of right coronary artery, which is known from before. 40% mid/proximal circumflex. No significant disease in the obtuse marginal. Collaterals to the right coronary artery are coming from the circumflex groove branch. Left anterior descending stent is widely patent, mild irregularities. No significant disease. Second diagonal has 80% to 90% ostial lesion, unchanged from before. RECOMMENDATIONS: There is no significant progression of disease. I am recommending continued medical therapy with risk factor modification. The patient will be discharged later on today, and I will see him in the office on Friday. These findings and recommendations were discussed with the patient as well as his . MMODL / IJN: [id number] /
[2022-01-22] MEDS ORDERED: allopurinoL 100 MG TAB PO SCH (21:00)
[2022-01-22] MEDS ORDERED: NON FORMULARY DRUG (Acetaminophen [Tylenol Arthritis] 650 MG Tablet) PO SCH (21:00)
[2022-01-22] MEDS ORDERED: GABAPENTIN 300 MG CAP PO SCH (21:00)
[2022-01-22] MEDS ORDERED: ATORVASTATIN 40 MG TAB PO SCH (21:00)
[2022-01-22] MEDS ORDERED: APIXABAN 5 MG TAB PO SCH (21:00)
[2022-01-22] MEDS ORDERED: tiZANidine 4 MG TAB PO SCH (21:00)
[2022-01-23] MEDS ORDERED: METOPROLOL TARTRATE 50 MG TAB PO SCH (09:00)
[2022-01-23] MEDS ORDERED: LOSARTAN 50 MG TAB PO SCH (09:00)
[2022-01-23] MEDS ORDERED: CHOLECALCIFEROL 25 MCG (1000 IU) TABLET PO SCH (09:00)
[2022-01-23] MEDS ORDERED: NON FORMULARY DRUG (Alpha Lipoic Acid [Alpha Lipoic Acid] 600 MG Tablet) PO SCH (09:00)
== END 2022-01-22 17:08 | disposition home or self-care (01) ==
LOC: CATHCVL 06:28
PROVIDERS: ATTEND Internal Medicine Interventional Cardiology
DX: I25.5 Ischemic cardiomyopathy (principal); I25.119 Atherosclerotic heart disease of native coronary artery with unspecified angina pectoris; E78.5 Hyperlipidemia, unspecified; I12.9 Hypertensive chronic kidney disease with stage 1 through stage 4 chronic kidney disease, or unspecified chronic kidney disease; E11.22 Type 2 diabetes mellitus with diabetic chronic kidney disease; N18.9 Chronic kidney disease, unspecified; I26.99 Other pulmonary embolism without acute cor pulmonale; F17.210 Nicotine dependence, cigarettes, uncomplicated; Z95.810 Presence of automatic (implantable) cardiac defibrillator
CPT/HCPCS: 93458; 85025; C1769 ×3; C1760; C1894 ×2; J2250; J2001; J1644; Q9967

== ENCOUNTER → 2022-01-25 | Outpatient (CLI) | payer MEDICARE, BC ==
[2022-01-25 23:32] LABS: African American GFR (CKD) 24.9 (60.0-200.0); Anion Gap 10.7 mmol/L (10.00-18.00); BUN/Creat Ratio 19.93 Ratio (12.00-20.00); Blood Urea Nitrogen 53.8 mg/dL (9.0-27.0); Calcium 9.6 mg/dL (8.7-10.3); Carbon Dioxide 23.3 mmol/L (20.0-27.5); Non-African American GFR(CKD) 21.4 (60.0-200.0); Potassium 5.4 mmol/L (3.5-5.5)
== END | disposition home or self-care (01) ==
LOC: LABWHC1 13:45
PROVIDERS: ATTEND Internal Medicine Interventional Cardiology
DX: I10 Essential (primary) hypertension (principal); I25.10 Atherosclerotic heart disease of native coronary artery without angina pectoris
CPT/HCPCS: 36415; 80048

== ENCOUNTER → 2022-02-05 | Outpatient (CLI) | payer MEDICARE, BC ==
[2022-02-05 14:39] LABS: African American GFR (CKD) 33.1 (60.0-200.0); Anion Gap 10.5 mmol/L (10.00-18.00); BUN/Creat Ratio 17.28 Ratio (12.00-20.00); Blood Urea Nitrogen 36.8 mg/dL (9.0-27.0); Calcium 9.6 mg/dL (8.7-10.3); Carbon Dioxide 21.9 mmol/L (20.0-27.5); Non-African American GFR(CKD) 28.6 (60.0-200.0); Potassium 5.1 mmol/L (3.5-5.5)
== END | disposition home or self-care (01) ==
LOC: LABWHC1 10:17
PROVIDERS: ATTEND Internal Medicine Interventional Cardiology
DX: I12.9 Hypertensive chronic kidney disease with stage 1 through stage 4 chronic kidney disease, or unspecified chronic kidney disease (principal); I25.10 Atherosclerotic heart disease of native coronary artery without angina pectoris; N18.9 Chronic kidney disease, unspecified
CPT/HCPCS: 36415; 80048

== ENCOUNTER → 2022-02-22 | Outpatient (CLI) | payer MEDICARE, BC ==
--- NOTE | 2022-02-23 10:59 | CT ---
EXAMINATION TYPE: CT chest wo con CT DLP: 1993.8 mGycm, Automated exposure control for dose reduction was used. DATE OF EXAM: 02/22/2022 6:27 PM COMPARISON: CT chest 01/12/2020. CLINICAL INDICATION:Male, 81 years old with history of J84.10 pulmonary fibrosis; , Pulmonary Fibrosi s TECHNIQUE: Multiple axial images were obtained through the chest. Sagittal and coronal reformats were created for review. Contrast used: None. Oral contrast used: None. FINDINGS: LUNGS/ PLEURA: There is been progression of findings within the chest compared to prior. There is now moderate centrilobular and paraseptal emphysema changes most pronounced in the lung apices. There is scattered groundglass opacities and peripheral reticulation. Overall findings are worse in the lung bases. There is no evidence of honeycombing. Expiratory imaging does not demonstrate any significant air trapping. Right upper lobe 9 mm pulmonary nodule, previously 8 mm. AIRWAY: Patent , mild scattered bronchiectasis and bronchial wall thickening. HEART: Moderately enlarged. Coronary artery atherosclerosis. Cardiac conduction leads with tip termin ating in the right ventricle and right atrium. MEDIASTINUM: No gross evidence of adenopathy. VASCULATURE: No aortic aneurysm. Atherosclerosis of the arterial vasculature. MUSCULOSKELETAL: No acute osseous abnormalities SOFT TISSUES/LYMPH NODES: Unremarkable. LOWER NECK: No significant findings. UPPER ABDOMEN: Cholelithiasis. IMPRESSION: Progression of lung findings when compared to prior in 2019. Overall there is increased emphysema dee dee nges with superimposed interstitial lung disease which could represent sequela prior atypical pneumon ia such as covid 19 or early NSIP.
== END | disposition home or self-care (01) ==
LOC: RADCTMAIN 16:59
PROVIDERS: ATTEND Internal Medicine
DX: J43.9 Emphysema, unspecified (principal); J84.10 Pulmonary fibrosis, unspecified; Z86.16 Personal history of COVID-19
CPT/HCPCS: 71250

== ENCOUNTER → 2022-03-13 | Outpatient (CLI) | payer MEDICARE, BC | END | disposition home or self-care (01) | LOC: LABPAT 09:46 | PROVIDERS: ATTEND Orthopaedic Surgery | DX: Z01.812 Encounter for preprocedural laboratory examination (principal); Z22.322 Carrier or suspected carrier of Methicillin resistant Staphylococcus aureus; M47.812 Spondylosis without myelopathy or radiculopathy, cervical region; M48.02 Spinal stenosis, cervical region | CPT/HCPCS: 86850; 86900; 86901; 87070 ==

== ENCOUNTER → 2022-03-14 | Outpatient (CLI) | payer MEDICARE, BC ==
[2022-03-14 10:40] VITALS: BP 115/69; PULSE 55; RESP 16; TEMP 98.2
--- NOTE | 2022-03-14 15:27 | P.PAINPG ---
PQRS Measure Charge Sheet Comment: A 81 yr old male w at side with a history of severe and chronic neck pain secondary to cervical DDD and spondylosis with facet arthropathy without myelopathy presents today for medication refills and evaluation s/p SISSY C6-C7. Pt states she experienced % relief s/p procedure. He is scheduled to undergo a cervical fusion. Pain level is currently at 10 /10 in intensity, constant, localized in the lower cervical spine, sharp in character w shooting towards the L Trapezius. Pain is provoked by overhead reaching. Pain is alleviated with PT integrated w massage which worsened pain, home exercise as tolerated, use ofa wheelchair/ cane for ambulation, alternating heat & ice, medications, topicals, reposition and rest. Interventional pain procedures completed include SISSY C6-C7 Patient is currently on Zanaflex, Tramadol Patient denies any side effects of the medication(s), denies excessive drowsines s or sleepiness, denies suicidal ideation and reports that the current pain medication is helping to control the pain and improve activities of daily living. Patient denies any motor or sensory deficits. Patient denies any fever or night sweats, denies any change in the bowel movements or urination. Physical Examination: -Constitutional: Cooperative. Not in acute distress . - Neurologic: Cranial nerve II to XII intact. No focal neurological deficits. - Psychatric: Alert & oriented x 3. Matching mood & appropriate affect. Judgment and insight intact. - Musculoskeletal: Cervical spine: Muscle bulk/ tone/ strength in the bilateral upper extremities normal Vertebral body tenderness to palpation over Spurling test positive Distraction test positive Facet loading test positive Thoracic spine Muscle bulk / tone/ strength in the bilateral paraspinal muscles normal Vertebral body tender to palpation over Facet loading test positive Lumbar spine: Motor bulk/ tone/ strength lower extremities , thigh and legs : 5/5 Deep tendon reflexes : Normal Knee Jerk. Normal Ankle Jerk . Vertebral body tenderness to palpation over Lumbar Facet Loading Test positive Straight Leg Raise: positive at 30 degrees right side/ left side Gaenslen's Test positive Sacral spine : Severe tenderness over the Sacroiliac joint: right side / left side Range of motion: Flexion of the lumbar spine <60 degrees Range of motion: Extension of the lumbar spine <20 degrees Gaenslen's Test positive Stephanie test: positive right side / left side Thigh Thrust Test Sacral Thrust Test Assessment and plan: Chronic neck pain secondary to cervical DDD, spondylosis with facet arthropathy without myelopathy All patient questions answered MAPS reviewed and it was appropriate. Prescription refill for Zanaflex #60 4mg, Tramadol #90 1 RF. Use, side effects, safe storage and narcotic/opiate agreement guidelines discussed and pt / at side acknowledged understanding. I have spent less than 30 minutes on patient care today. Dr Anton was lesa ilable by phone for the evaluation of this patient. The time was used to review the medical records including relevant urine studies and Prescription history (MAPs), review of the available imaging, evaluation and examination of the patient, coordination of care with the medical staff and if applicable referring physicians, as well as creation of the medical record PQRS Narrative: Smoking Status Former smoker Hx Alcohol Use (MH) No Home Medications: Ambulatory Orders Atorvastatin [Lipitor] 40 mg PO HS 01/07/17 Gabapentin [Neurontin] 300 mg PO BID 01/10/20 Apixaban [Eliquis] 5 mg PO BID 03/20/20 Furosemide [Lasix] 40 mg PO BID 03/20/20 calcitrioL [Calcitriol] 0.25 mcg PO Q7D 04/26/21 allopurinoL [Zyloprim] 100 mg PO BID 07/16/21 Ammonium Lactate Lotion [Lac-Hydrin 12% Lotion] 1 applic TOPICAL DAILY 11/11/21 Acetaminophen [Tylenol Arthritis] 650 mg PO BID 01/05/22 Alpha Lipoic Acid 600 mg PO DAILY 01/05/22 Cholecalciferol [Vitamin D3 (25 Mcg = 1000 Iu)] 50 mcg PO DAILY 01/05/22 Clotrimazole [Clotrimazole AF] 1 applic TOPICAL DAILY PRN 01/05/22 Dorzolamide/Timolol/Pf [Dorzolamide 2%-Timolol 0.5%] 1 drop BOTH EYES HS 01/05/22 Latanoprost [Latanoprost 0.005%] 1 drop BOTH EYES HS 01/05/22 calcium polycarbophiL [Fibercon] 625 mg PO BID 01/05/22 Losartan [Cozaar] 100 mg PO DAILY #30 tab 01/06/22 Metoprolol Tartrate [Lopressor] 50 mg PO DAILY 01/17/22 Isosorbide Mononitrate ER [Imdur] 30 mg PO DAILY 01/22/22 tiZANidine [Zanaflex] 2 mg PO BID PRN 30 Days #60 tab 03/14/22 traMADol HCl [Ultram] 50 mg PO TID PRN 30 Days #90 tab 03/14/22 Controlled Substance Measures - Controlled Substance Measures Is patient prescribed a controlled substance at discharge?: Yes When asked, does pt state using other controlled substances?: No If prescribed controlled substance>3 days was MAPS reviewed?: Yes If Rx opioid, was Start Talking consent form obtained?: Yes Was information provided regarding opioid addiction?: Yes
== END ==
LOC: PNWHC3 09:39
PROVIDERS: ATTEND Specialist
DX: M47.812 Spondylosis without myelopathy or radiculopathy, cervical region (principal); M50.30 Other cervical disc degeneration, unspecified cervical region; G89.29 Other chronic pain; Z87.891 Personal history of nicotine dependence; Z88.5 Allergy status to narcotic agent; Z88.0 Allergy status to penicillin
CPT/HCPCS: 99211

== ENCOUNTER → 2022-03-15 | Outpatient (CLI) | payer MEDICARE, BC ==
[2022-03-15 14:54] LABS: Basophils # (A) 0.04 X 10*3/uL (0.00-0.10); Basophils % (A) 0.4 %; Eosinophils # (A) 0.28 X 10*3/uL (0.04-0.35); Eosinophils % (A) 3.1 %; HCT 30.6 % (39.6-50.0); HGB 8.7 g/dL (13.0-17.0); Immature Grans, Automated 0.6 %; Lymphocytes # (A) 1.11 X 10*3/uL (0.90-5.00); Lymphocytes % (A) 12.4 %; MCH 25.9 pg (27.0-32.0); MCHC 28.4 g/dL (32.0-37.0); MCV 91.1 fL (80.0-97.0); Mean Platelet Volume 10.7 fL (9.5-12.2); Monocytes # (A) 0.86 X 10*3/uL (0.20-1.00); Monocytes % (A) 9.6 %; NRBC Per 100 WBC 0.6 /100 WBCS (0.0-0.0); Neutrophils # (A) 6.63 X 10*3/uL (1.80-7.70); Neutrophils % (A) 73.9 %; Platelet Count 221 X 10*3/uL (140-440); RBC 3.36 X 10*6/uL (4.40-5.60); RDW 17.4 % (11.5-14.5); WBC 8.97 X 10*3/uL (4.50-10.00)
[2022-03-15 15:43] LABS: African American GFR (CKD) 27.3 (60.0-200.0); Anion Gap 11.6 mmol/L (10.00-18.00); BUN/Creat Ratio 16.04 Ratio (12.00-20.00); Blood Urea Nitrogen 40.1 mg/dL (9.0-27.0); Calcium 9.3 mg/dL (8.7-10.3); Carbon Dioxide 21.4 mmol/L (20.0-27.5); Non-African American GFR(CKD) 23.5 (60.0-200.0); Potassium 4.8 mmol/L (3.5-5.5)
[2022-03-15 17:47] LABS: INR 1.01 (0.90-1.11); Prothrombin Time 11.4 sec (9.9-11.9)
== END | disposition home or self-care (01) ==
LOC: LABPAT 09:15
PROVIDERS: ATTEND Orthopaedic Surgery
DX: Z01.812 Encounter for preprocedural laboratory examination (principal); Z79.899 Other long term (current) drug therapy; Z79.01 Long term (current) use of anticoagulants
CPT/HCPCS: 80048; 85025; 85610

== ENCOUNTER 2022-03-18 05:40 | Inpatient (IN) | payer MEDICARE, BC ==
[~2022-03-18 05:40] MED LIST changes: +ACETAMINOPHEN TAB 500 MG TAB PO PRN; -ALPRAZolam 0.25 MG TAB PO PRN; -ALPRAZolam 0.5 MG TAB PO PRN; -ASPIRIN 325 MG TAB PO STA; -ATORVASTATIN 80 MG TAB PO STA; +GABAPENTIN 300 MG CAP PO PRN; -HEPARIN SODIUM,PORCINE 10,000 UNIT in SODIUM CHLORIDE 0.9% 1,000 ML IRRIGATION PRN; -HEPARIN SODIUM,PORCINE 2,500 UNIT in SODIUM CHLORIDE 0.9% 250 ML IRRIGATION PRN; +MELOXICAM 7.5 MG TAB PO PRN; -NITROGLYCERIN SL TABS 0.4 MG TAB SUBLINGUAL PRN; -SODIUM CHLORIDE 0.9% 1,000 ML in EMPTY BAG 1 BAG IV SCH; +TRANEXAMIC ACID IN NACL,ISO-OS 1,000 MG in SALINE 1 100ML.BAG IVPB PRN
--- NOTE | 2022-03-18 06:12 | P.HPOR ---
History of Present Illness H&P Date: 03/13/22 .D:Date: 03/13/22 : 10:48am .T:Title: [facility] Date of :[birth year] Age: 81 year Height: 5'10" Weight: 220 lbs BP:125/79 BMI: 31.57 kg/m2 Occupation: Retired VAS: 10 CHIEF COMPLAINT: recheck cervical spondylosis DOI: Chronic DOS: None Duration of current treatment regiment: 6 months HISTORY: Xrays No new xrays taken in office Trauma or injury No Work-Related No Pain description burning, sharp, increasing . Location posterior diffuse Patient notes that their pain radiates to bilateral upper extremities Activity Modification yes Hand Dominance right TREATMENTS COMPLETED: 6 weeks of PT completed? Month and Year of last PT date? 08/2021 Yes How many sessions? 10 Did it help? No Physician directed home exercise completed? yes Patient has trialed the physician directed home exercise program without relief of their symptoms. Medications yes List: Gabapentin 300mg, Tramadol 50mg both without relief. Pt is currently on [employer] Alternative interventions Chiropractic: No Massage therapy: No R.I.C.E: yes heat/ice without relief. Brace: No Injections No RFA: No SUBJECTIVE: Mr. Vega returns to the office for a recheck of their cervical spine and review the planned cervical C2-T2 Decompression and Fusion. Patient reports no improvements to his symptoms since the time of the last appointment. The patient increasing, burning, sharp cervical pain with no new injury or trauma. In addition to their cervical pain, they do report that it radiates into the bilateral upper extremities (L>R), associated with numbness and tingling through the arms diffusely. Overall the patient has seen a progressive increase in symptoms since their onset. Mr. Vega symptoms are exacerbated with any standing, ambulation, flexion/extension/twisting of the neck, and use of the arms, due to this they notes that it is increasingly difficult for Mr. Vega to complete many of their daily tasks. Patient is having severe sleep disturbances as well due to their ongoing pain and associated symptoms. Regarding treatments, the patient has previously trialed all abovementioned treatment modalities without relief of his symptoms. Patient denies trialing any other modalities at this time. For their symptoms, the patient has been taking Gabapentin and Tramadol without relief of his symptoms. Otherwise the patient denies any f/c/sob/cp, no incision concerns, no bladder or bowel retention/incontinence, no perineal numbness/tingling, and ambulates with a walker. HPI: Mr. Vega last returned to the office on 02/08/22 for a recheck of their cervical spine. Patient reports a increasing, burning, sharp cervical pain with no new injury or trauma. In addition to their cervical pain, they do report that it radiates into the bilateral upper extremities (L>R), associated with numbness and tingling through the arms diffusely. Overall the patient has seen a progressive increase in symptoms since their onset and notes that is is extremely difficult for him to complete his daily tasks due to pain. Mr. Vega symptoms are exacerbated with any standing, ambulation, flexion/extension/twisting of the neck, and use of the arms. Due to this they notes that it is increasingly difficult for Mr. Vega to complete many of their daily tasks. Patient is having severe sleep disturbances as well due to their ongoing pain and associated symptoms. Regarding treatments, the patient has previously trialed all abovementioned treatment modalities without relief of his symptoms. Patient denies trialing any other modalities at this time. For their symptoms, the patient has been taking Gabapentin 300mg and Tramadol 50mg without lasting relief of his symptoms. Otherwise the patient denies any f/c/sob/cp, no bladder or bowel retention/incontinence, no perineal numbness/tingling, and ambulates independently. Mr. Vega was last seen on 11/29/2021 regarding cervical spondylosis. Patient reports a sharp and aching cervical pain ongoing for years with no known injury or trauma to indicate an exact onset of their symptoms. In addition to their cervical pain, they do report that it radiates into the bilateral upper extremities, associated with numbness and tingling through the bilateral upper extremities. The patient reports burning pain that radiates up into his legs. Overall the patient has seen a progressive increase in symptoms since their onset. Mr. Vega symptoms are exacerbated with turning his neck, due to this they notes that it is increasingly difficult for Mr. Vega to complete many of their daily tasks. Patient is having moderate sleep disturbances as well due to their ongoing pain and associated symptoms. The patient reports increased falling incidents. The patient is currently in a neck collar. The patient uses a walker. The patient had cervical injections done on 11-15-2021 with relief. The patient was in physical therapy with relief. Regarding treatments, the patient has previously trialed the above mentioned modalities. Patient denies trialing any other modalities at this time. For their symptoms, the patient has been taking Gabapentin 300mg., Tramadol 50 mg., and Eliquis. Otherwise the patient denies any f/c/sob/cp, no incision concerns, no bladder or bowel retention/incontinence, no perineal numbness/tingling, and ambulates independently. Mr. Veag was last seen on 08/31/2021 regarding his cervical pain. Since the time of his last appointment the patient denies any improvements. He continues to complain of aching and sharp cervical pain radiating into the bilateral upper extremities with diffuse numbness/tingling. (left worse than right). Overall these symptoms are exacerbated with flexion/twisting/extension of the neck along with any weightlifting with the arms. Due to this he has seen a significant loss in ADL's and daily functionality. With this he does also report frequent sleep disturbances due to his ongoing symptoms as well as increased headaches. As for treatments, since the time of the last appointment the patient reports that he has trialed the physician recommended home exercise program along with 10 visits of formal physical therapy without any relief. Additionally the patient denies any improvements with all above mentioned medications and overall has found little relief with all conservative modalities trialed thus far. Patient denies any f/c/sob/cp, no bladder or bowel retention/incontinence, no perineal numbness/tingling, and ambulates independently. Mr. Vega was last seen on 07/20/2021 regarding neck pain. Patient states that pain initiates in the back middle portion of his neck and radiates into bilateral shoulders, with left side greater than the right. Patient states pain increases with rotating his neck to the left side. He states that he has headaches often. Patient denies weakness, numbness/tingling to bilateral upper extremities. Patient states PCP had ordered CT of cervical and lumbar region that was acquired 07/16/2021. Patient is unable to have an MRI due to pacemaker. Patient is unable to also have CT myelogram due to decreased kidney function. Patient is ambulatory with cane. He is currently taking Valium, gabapentin, Tylenol, and tramadol with slight relief. The patients' past social, medical, family, surgical history, as well as review of systems, have been reviewed. Please refer to the Neurosurgery History and Physical form that has been scanned in to our electronic medical record system. 14 points review of systems completed and as stated in HPI, all other systems reviewed are negative. Social History: Reviewed, see appropriate section of the chart for details. P3 Social History: Smoking: never a smoker P3 Alcohol: none P3 Family History: Reviewed, see appropriate section of the chart for details. P2 Past Medical History: Reviewed, see appropriate section of the chart for detai ls. [id number] Medications: Rx: atorvastatin 40 mg tablet Ref: 0 Rx: carvediloL 6.25 mg tablet Ref: 0 Rx: dorzolamide Ref: 0 Rx: Eliquis 5 mg tablet Ref: 0 Rx: FiberCon 625 mg tablet Ref: 0 Rx: furosemide 40 mg tablet Ref: 0 Rx: gabapentin 300 mg capsule Ref: 0 Rx: losartan 50 mg tablet Ref: 0 Rx: traMADol 50 mg tablet Ref: 0 Rx: calcitrioL 0.25 mcg capsule Ref: 0 Rx: latanoprost 0.005 % eye drops Ref: 0 Rx: Tylenol Arthritis Ref: 0 Rx: Valium Ref: 0 Rx: Vitamin D2 Ref: 0 Rx: alpha lipoic acid 600 mg tablet Ref: 0 Rx: losartan 50 mg tablet Ref: 0 Rx: amiodarone 200 mg tablet Ref: 0 Rx: metoprolol tartrate 50 mg tablet Ref: 0 Rx: tiZANidine 2 mg tablet Ref: 0 P1 PHYSICAL EXAMINATION: General: Awake, alert, appropriate for age, in no acute distress. HEENT: No unusual neck masses around region of lateral neck triangle, thyroid, supraclavicular groove Extremities: Skin warm and dry without acute lesions, coloration, temperature, skin intact, no tenderness or erythema Integument: Hairy patches: ABSENT Dorsal skin dimples: ABSENT Cafe au lait spots: ABSENT Surgical incisions: NONE Palpation: Please see Pain drawing on Intake sheet for further detail. Midline spinal tenderness: No E6 Cervical Tenderness: No E6 Paralumbar tenderness: No E6 Parathoracic tenderness: No E6 Buttocks tenderness: No E6 POSTURAL and MUSCULO-SKELETAL EVALUATION: Coronal Balance: NEUTRAL Recumbent testing: Patient is able to lay flat on back Sagittal Balance: NEUTRAL Shoulder Profile: LEVEL Pelvic Girdle: LEVEL Neck ROM: RESTRICTED to the left side Lumbar ROM: RESTRICTED Shoulder ROM: Symmetrical Hip ROM: Symmetrical Knee ROM: Symmetrical Hands: Normal appearance, symmetrical Feet: Normal appearance, Symmetrical VASCULAR STATUS : LEFT RIGHT Wrist Pulses INTACT INTACT Pedal Pulses (Dors. pedis & post.tibialis) INTACT INTACT Color NORMAL NORMAL Edema Absent Absent NEUROLOGIC EXAMINATION: Mental Status:Awake and alert, fully oriented, with normal attention, concentration and memory, and fluent, appropriate speech. Cranial Nerves: I: Olfactory not tested. II: Visual acuity normal, no visual field deficit noted with confrontation. III,IV: Normal pupillary reflexes & intact extraocular movements without nystagmus. V,: Intact symmetrical facial sensation. VII: Intact symmetrical facial motor movement VIII: Hearing intact. IX,X: Intact gag, swallow, & normal voice. XI: Sternocleidomastoid, trapezius function intact. XII: Tongue midline with normal movements. L'hermitte's Sign: Negative / absent Spurling'Sign: Absent bilaterally. Cubital percussion test: Absent bilaterally. Elliott-Tinel sign - Carpal region: Absent bilaterally. Straight Leg Raising: Absent bilaterally. Crossed straight leg raise: negative O8 MOTOR EXAM (0-5/5, N/T Muscle appearance: Symmetrical, without signs of atrophy or dystrophy UPPER EXTREMITY RIGHT LEFT Shoulder Abduction 4/5 4/5 Biceps 5/5 4/5 Triceps 4/5 4/5 Wrist Extension 5/5 5/5 Hand Intrnsics 5/5 4/5 Solid Waste Management Engineer 4/5 4/5 Hand and finger dexterity intact bilaterally? No Disdiadochokinesis examination negative bilaterally? yes LOWER EXTREMITY RIGHT LEFT Hip Flexion 5/5 5/5 Knee Extension 5/5 5/5 Knee Flexion 5/5 5/5 Dorsiflexion 5/5 5/5 Plantarflexion 5/5 5/5 EHL 5/5 5/5 FHL 5/5 5/5 Toe heel walk / heel-toe walk intact while maintaining satisfactory balance? No Squatting/straightening w/o assistance to a min of 60 degree knee flexion? No Single leg stance: not intact Trendelenburg sign negative bilaterally REFLEXES(0-4/2, NT)Upper ExtremityLower Extremity Right 2 2 Left 2 2 Pathological Reflexes RIGHT LEFT Elliott's Absent Absent Clonus Absent Absent Babinski Absent Absent Sensory system (0-4, N/T) Test type RU JUAN DAVID RL LL Joint-Position 2 2 2 2 Vibration 2 2 2 2 Pain & LT sense 2 2 2 2 Dermatomal Deficit: C2-C7 C2-C7 None None Gait and Functional Evaluation: Ambulatory aids: Walker Romberg's test: Intact bilaterally Unsteady Gait RADIOGRAPHIC STUDIES: XRay Cervical multiview (Lateral, Flexion, Extension, AP, Oblique) 5 views taken at [facility] on 07/22/21 of Cervical Spine: Severe anterior osteophytosis noted with bridging osteophytes from C4-7. There are spondylotic changes through the C spine and there is a Grade I anterior listhesis of C2-3 which is mobile on F/e films. There is no C1-2 instability or C0-1 instability noted at this time. NO fractures noted. No lesions. CT [facility] at [facility] from 07/16/21 of Cervical Spine: Moderate multilevel spondylotic changes. There is some subluxation deformity at C2-3 that could relate to old trauma. Subluxation is new compared to old exam. Ligamentous instability is suspected. No acute fracture seen. CT scan report completed at [facility] from 07/16/2021 of lumbar spine: Multilevel spondylotic changes. Spinal stenosis at L3-4 and L5-S1 without much change. No acute bony abnormality. IMPRESSION : It was my pleasure to have seen and examined Ben. I reviewed the patient's clinical syndrome, physical findings, and imaging studies during the appointment today. It is my impression that the patient has a diagnosis of. 1. spondylosis C2 with stenosis cervical 2. lumbar spondylosis with stenosis 3. neurogenic claudication 4. cervical myelopathy 5. anterior cervical osteophytes 6. mechanical neck pain 7. bilateral upper extremity radiculopathy 8. bilateral upper extremity weakness I outlined the natural course history without intervention and various interventional options. PLAN: Based on my findings I suggest the following course of action: -I discussed treatment options with the patient, including operative and non- operative options, and they have elected to proceed with the following surgical procedure: cervical C2-T2 Decompression and Fusion The indications, risks, benefits, and alternatives to surgery were discussed with the patient at length. Specifically (but not limited to) the risks of infection, stiffness, recurrence of symptoms, need for revision surgery, local numbness, neurovascular injury, and blood clots were discussed. The patient's questions were answered.The patient would like to consider surgical options and will call the office if /when they decide to proceed. -Advised patient to continue with supplements, health maintenance, and home exercise programs. Patient expressed understanding and will continue with these modalities. - Spine Surgery Risk Review Mr. Vega is presenting for evaluation of cervical pain. It was my pleasure to have seen and examined Mr. Vega. In our visit today we have had a chance to go over subjective complaints, physical examination findings and treatments including the natural course history without intervention and various interventional options. The patients imaging demonstrates: XRay Cervical multiview (Lateral, Flexion, Extension, AP, Oblique) 5 views taken at [facility] on 07/22/21 of Cervical Spine: Severe anterior osteophytosis noted with bridging osteophytes from C4-7. There are spondylotic changes through the C spine and there is a Grade I anterior listhesis of C2-3 which is mobile on F/e films. There is no C1-2 instabiliyt or C0-1 instability noted at this time. NO fractures noted. No lesions. CT scancompleted at [facility] from 07/16/21 of Cervical Spine: Moderate multilevel spondylotic changes. There is some subluxation deformity at C2-3 that could relate to old trauma. Subluxation is new compared to old exam. Ligamentous instability is suspected. No acute fracture seen. CT scan report completed at [facility] from 07/16/2021 of lumbar spine: Multilevel spondylotic changes. Spinal stenosis at L3-4 and L5-S1 without much change. No acute bony abnormality. On physical exam, Mr. Vega demonstrates significantly restricted cervical ROM with bilateral upper extremity radiculopathy and weakness. Patient does also demonstrate gross motor function deficit due to his ongoing radicular symptoms. Furthermore there is evidence of gait instability and difficulty with functional testing due to his ongoing symptoms. Patient demonstrates C2-C7 dermatomal deficits bilaterally. Lastly patient is ambulating with the use of a walker. I have explained to the patient that as their condition progresses it will cause further neurological deficits and eventual paralysis. Based on the patients imaging, physical exam, and the rapid progression and disabling nature of their symptoms, at this time I recommend surgery in the form or a: cervical C2-T2 Decompression and Fusion . I discussed the risk and benefits of this procedure at length with Mr. Vega. The patient and his agreed to considered pursuing the procedure abovementioned. Prior to surgery, she should follow up with her PCP (Cardio, ID, IM etc) for clearance. Questions were invited and answered, and the patient wishes to proceed as outlined below. Currently, I am recommendin.cervical C2-T2 Decompression and Fusion 2.Follow up with PCP for surgical clearance 3.Review of surgical risks and benefits as well as an educational packet on the proposed surgical procedure. Risks: All surgical procedures come with inherent risks, including those related to positioning, anesthesia, intraoperative findings, and postoperative co mplications. It is important to understand that surgery does not come with any guarantee of a successful outcome as complications and adverse events are always possible. The patient was given a handout in office today discussing the surgical procedure and risks associated with the intervention, both of which were discussed with the patient. These risks include but are not limited to the following: * Experiencing same, different or even worse symptoms in back, neck, arms, or legs compared to before surgery. Requiring further surgery or other forms of treatment presently or at some time in the future at same or other levels of the intended spine surgery. On an extreme but fortunately relatively rare basis severe complication such as blindness, stroke, heart attack, temporary and/or permanent nerve injury, paralysis, coma, or may occur, sometimes without known explanation. Surgical complications may include but are not limited to risk of infection, fluid accumulation in the surgical dissection site, including a seroma or hematoma, that requires additional surgery, wound drainage, bleeding, new numbness or weakness, vision changes/loss, spinal fluid leakage, non-healing and/or infected incision, headaches, difficulty or inability to swallow, hoarseness, hemopneumothorax, pneumothorax, impotence, retrograde ejaculation, vaginal dryness; injury to nerves, spinal cord, blood vessels, lymphatics or other vital organs (i.e., bowel injury, injury to the great vessels); heterotopic bone formation; complications related to the hardware such as screws, rods, cages including misplaced hardware, device failure, instrumentation at the wrong spine level, hardware fracture/breakage, or hardware loosening; vertebral failure of the spinal column above or below the newly placed hardware; retained surgical instrumentations or devices and the need for further surgery. * Medical risks of the planned spine surgery include but are not limited to generalized Infections to the whole body or local areas outside of the surgical site (sepsis), heart attack, bleeding, anaphylaxis, meningitis, seizure, epilepsy, hearing loss, burn burgess, laceration of the head or other areas of the body, bruising, hypersensitivity of the skin, bladder over distension; allergic reaction; shoulder injury related to positioning; fat, blood and air clots to other areas of the body like heart, lungs, brain; failure of internal organs such as lungs, kidneys, liver and excessive bleeding. If blood transfusions are necessary, note that transfusions may cause intolerance reactions such as anaphylaxis or other complex reactions. Despite best efforts, the results of spine surgery might not heal in terms of bone, soft tissues such as skin, fascia, ligaments, and joints. Additionally, in order to achieve best possible results, spine surgery may be carried out beyond the initially planned levels and involve decompression, fusion including insertion of hardware at levels other than the original intended area of surgical interest change some portions of the procedure in order to ensure the best possible outcomes. With spine surgery and spinal fusion, there are different off label uses of instrumentation (devices, implants and hardware) as well as biological substances (bone morphogenic proteins, demineralized bone matrix) as well as using extra bone from allograft sources (i.e. cadaver bone) or autograft (iliac crest bone, ribs, or the spine itself). The patient has been given information about these practices and their inherent risks and benefits. [facility] is an educational center that serves as a training facility for neurosurgical and orthopedic CEMETERY COUNSELOR and Nursing students. Physician assistants are medically trained surgical providers who function in the outpatient, inpatient, and operating room setting under the direct supervision of the attending surgeon. [facility] has multiple operating rooms with single and overlapping rooms running daily. They currently function under the required guidelines as produced by the Senate Finance Committee with regards to the overlapping rooms and will continue to comply with changes to this policy as they occur. The requirements include and are complied with as follows: (1) the critical portions of the overlapping rooms will not occur at the same time, (2) the attending physician will be physically present during the critical portions of the procedure and immediately available during the entire case, and (3) a back-up attending is designated should the primary attending not be immediately available. The patient has had a chance to review all the listed information, has been given print outs detailing this information, and has had all his/her questions answered to their satisfaction. It was my pleasure to have seen and examined Mr. Vega. In our visit today we have had a chance to go over my understanding of our patient's current condition, the natural course history without intervention and various interventional options. Questions were invited and answered, and the patient wishes to proceed as outlined above. I have seen and examined the patient for 25 minutes and we have spent more than 50% of the time in repeat and detailed counseling about the patient's condition, its natural course history with out and as much as can be predicted with surgery and re-review of various surgical treatment options. In conclusion, Mr. Vega and his spouse requested we proceed with the above suggested surgery and are willing to accept risks and limitations of the suggested surgery as nature of the disease process and our best attempts at treatment for the condition. Thank ou again for allowing us to be part of your patient's care. Please don't hesitate to contact me if you have any further questions. Signed and authenticated by: Follow-up: 2 weeks post-op Patient Education: (Informational booklet, instructions, etc) given at today's appointment: Yes .ED:Patient Education: Y Plan at next visit: review planned procedure Medications Reviewed: YES In our visit today Mr. Vega and I have had a chance to go over my understanding of the patient's current condition, the natural course history without intervention and various interventional options. Questions were invited and answered, and the patient wishes to proceed as outlined above. I will be sure to keep you updated afterMr. Vega returns here for further follow-up. Thank you again for your referral. Please do not hesitate to contact me if you have any further questions. Signed and authenticated by: [facility] [address], [address] [address] This message is confidential, intended only for the named recipient(s) and may contain information that is privileged or exempt from disclosure under applicable law. If you are not the intended recipient(s), you are notified that the dissemination, distribution or copying of this information is strictly prohibited. If you received this message in error, please notify the sender then delete this message. Patient verbalizes understanding of the information discussed. The above note was initiated by Fidencio Mckeon, physician recording assistant elementary teacher for Dr. Fidencio Ardon. This note has been reviewed by Dr. Ardon, who has made his personal changes and impressions for this document. CC: Dr. Gonzalez # SIGNED BY Fidencio Ardon (GOO)03/15/2022 10:43AM Past Medical History Past Medical History: Coronary Artery Disease (CAD), Cancer, Chest Pain / Angina, Heart Failure, Diabetes Mellitus, Hyperlipidemia, Hypertension, Myocardial Infarction (TN), Renal Disease Additional Past Medical History / Comment(s): hx prostate cancer with surgery, chronic neck, bilateral shoulder and back pain, hx Gout, fatty tumor on right back, gallstones. TN's in 1980 and 2016. Ventricular Tachycardia. Ischemic Cardiomyopathy, left lung pulmonary embolism, non-dependent diabetes mellitus type 2, neuropathy b/l LE, chronic kidney disease stage IV, diverticular dis ease, gout, glaucoma right eye, congestive heart failure, hypertension, dyslipidemia, coronary artery disease having "gallbladder" symptoms Last Myocardial Infarction Date:: 2016 History of Any Multi-Drug Resistant Organisms: None Reported Past Surgical History: AICD, Back Surgery, Heart Catheterization, Hernia Repair, Pacemaker Additional Past Surgical History / Comment(s): CARDIOVERSION, lumbar surgery X2, cervical epidural injections, bilateral inguinal hernia repairs, TURP, colonoscopy, bilateral cataract removals., Heart Cath 03/22/20 Past Anesthesia/Blood Transfusion Reactions: No Reported Reaction Date of Last Stent Placement:: 10/18/16 Type of Cardiac Device: AICD Device Placement Date:: 01-10-17 Smoking Status: Former smoker - Past Family History Mother History Unknown: Yes Family Medical History: Unable to Obtain Additional Family Medical History / Comment(s): Mother of unknown cause. Father History Unknown: Yes Family Medical History: Unable to Obtain Additional Family Medical History / Comment(s): Father of unknown cause. Medications and Allergies Home Medications Medication Instructions Recorded Confirmed Type Atorvastatin [Lipitor] 40 mg PO HS 01/07/17 03/14/22 History Gabapentin [Neurontin] 300 mg PO 0800,1700 01/10/20 03/14/22 History Apixaban [Eliquis] 5 mg PO BID 03/20/20 03/14/22 History Furosemide [Lasix] 40 mg PO DAILY 03/20/20 03/14/22 History calcitrioL [Calcitriol] 0.25 mcg PO Q7D 04/26/21 03/14/22 History allopurinoL [Zyloprim] 200 mg PO DAILY 07/16/21 03/14/22 History Acetaminophen [Tylenol Arthritis] 650 mg PO BID 01/05/22 03/14/22 History Alpha Lipoic Acid 600 mg PO DAILY 01/05/22 03/14/22 History Cholecalciferol [Vitamin D3 (25 50 mcg PO DAILY 01/05/22 03/14/22 History Mcg = 1000 Iu)] Latanoprost [Latanoprost 0.005%] 1 drop LEFT EYE HS 01/05/22 03/14/22 History calcium polycarbophiL [Fibercon] 625 mg PO BID 01/05/22 03/14/22 History Losartan [Cozaar] 100 mg PO DAILY #30 tab 01/06/22 03/14/22 Rx Metoprolol Tartrate [Lopressor] 50 mg PO BID 01/17/22 03/14/22 History Acetaminophen [Tylenol] 325 mg PO BID 03/14/22 03/14/22 History Difluprednate [Difluprednate Ophth 1 drop RIGHT EYE QID 03/14/22 03/14/22 History Soln] Ofloxacin 0.3% Ophth Soln [Ocuflox 1 drops RIGHT EYE QID 03/14/22 03/14/22 History Ophth Soln] Spironolactone [Aldactone] 12.5 mg PO DAILY 03/14/22 03/14/22 History tiZANidine [Zanaflex] 2 mg PO BID 03/14/22 03/14/22 History traMADol HCl [Ultram] 50 mg PO BID 03/14/22 03/14/22 History Allergies Allergy/AdvReac Type Severity Reaction Status Date / Time amoxicillin Allergy Severe Unknown- Verified 03/14/22 12:24 was hospitalized hydrocodone bitartrate AdvReac Confusion Verified 03/14/22 12:24 [From Lane] Physical Examination Osteopathic Statement: *. No significant issues noted on an osteopathic structural exam other than those noted in the History and Physical/Consult.
[2022-03-18] MEDS ORDERED: MIDAZOLAM 2 MG/2 ML VIAL IV PRN (06:16)
[2022-03-18] MEDS ORDERED: ONDANSETRON 4 MG/2 ML VIAL IVP ONE (06:16)
[2022-03-18] MEDS ORDERED: DEXAMETHASONE SOD PHOSPHATE 4 MG/ML 1 ML VIAL IV ONE (06:16)
[2022-03-18] MEDS: LACTATED RINGERS 1,000 ML IV SCH (07:00)
[2022-03-18] MEDS ORDERED: fentaNYL (PF) 50 MCG/ML 2 ML AMP IV PRN (07:00)
[2022-03-18 07:04] LABS: Glucose,Whole Blood 124 mg/dL (70-110)
[2022-03-18] MEDS ORDERED: MIDAZOLAM 2 MG/2 ML VIAL ONE (07:29)
[2022-03-18] MEDS ORDERED: fentaNYL (PF) 50 MCG/ML 2 ML AMP ONE (07:29)
[2022-03-18] MEDS ORDERED: HYDROmorphone (PF) 1 MG/ML ONE (07:29)
[2022-03-18] MEDS ORDERED: PROPOFOL 10 MG/ML 20 ML VIAL IV ONE (07:29)
[2022-03-18] MEDS ORDERED: PHENYLEPHRINE-0.9% NACL SYG 1,000 MCG/10 ML SYRINGE ONE (07:29)
[2022-03-18] MEDS ORDERED: SUCCINYLCHOLINE CHLORIDE 200 MG/10 ML VIAL IV ONE (07:29)
[2022-03-18] MEDS ORDERED: TRANEXAMIC ACID IN NACL,ISO-OS 1,000 MG/100 ML BAG ONE (07:29)
[2022-03-18] MEDS ORDERED: THROMBIN (BOVINE) 5,000 UNIT VIAL TOPICAL ONE (07:34)
[2022-03-18] MEDS ORDERED: GELATIN SPONGE,ABSORB (LARGE) 1 EACH SPONGE TOPICAL ONE (07:34)
[2022-03-18] MEDS ORDERED: BUPIVACAIN-EPI 0.25%-1:200,000 30 ML VIAL SQ ONE (07:34)
[2022-03-18] MEDS ORDERED: ceFAZolin 3,000 MG in SODIUM CHLORIDE 0.9% IRRIGATIO 3,000 ML IRRIGATION ONE (09:36)
[2022-03-18] MEDS ORDERED: GENTAMICIN 80 MG in SODIUM CHLORIDE 0.9% IRRIGATIO 3,000 ML IRRIGATION ONE (09:36)
[2022-03-18] MEDS ORDERED: VANCOMYCIN 1,000 MG VIAL MISCELLANE ONE (10:12)
--- NOTE | 2022-03-18 10:58 | FL ---
EXAMINATION TYPE: FL guidance operating room, XR cervical spine limited DATE OF EXAM: 03/18/2022 CLINICAL HISTORY: Neck pain. TECHNIQUE: Fluoroscopy. Limited intraoperative view cervical spine. COMPARISON: None. FINDINGS: Fluoroscopic guidance was provided during cervical spine fusion procedure performed by Dr. Ardon. A total of 39 seconds of fluoroscopic time was utilized during the procedure and 14 spo t images was acquired. Intraoperative images acquired show placement of posterior interpedicular rods and screws from C2 lev el through the upper thoracic spine. IMPRESSION: As Above.
--- NOTE | 2022-03-18 11:17 | P.ANPRN ---
Procedure Note - Anesthesia - Invasive Line Left Arterial Line Time Out Performed: Yes (0718) Date of Procedure: 03/18/22 Time of Procedure: 07:19 Location of Patient: PreOp Preparation: Sterile Prep, Sterile Dressing Arterial Line Location: Radial Ultrasound Used: No Purpose - Visualization and Identification of Vasculature: No Needle Guage: 20g Image Stored and Saved: No Narrative: Central line placement per sterile protocol utilized. sterile protocol. right radial arterial line placed with one attempt.
[2022-03-18] MEDS ORDERED: CYCLOBENZAPRINE 5 MG TAB PO PRN (11:20)
[2022-03-18] MEDS ORDERED: HYDROmorphone 0.5 MG/0.5 ML SYRINGE IVP PRN (11:20)
[2022-03-18] MEDS ORDERED: SENNOSIDES-DOCUSATE SODIUM 1 EACH TAB PO PRN (11:20)
[2022-03-18] MEDS ORDERED: MAGNESIUM HYDROXIDE 2,400 MG/10 ML CUP PO PRN (11:20)
[2022-03-18] MEDS ORDERED: HYDROcodone/APAP 5-325MG 1 EACH TAB PO PRN (11:20)
[2022-03-18] MEDS ORDERED: HYDROmorphone 0.5 MG/0.5 ML SYRINGE IVP ONE ×2 (11:45→11:57)
[2022-03-18 11:53] LABS: Glucose,Whole Blood 141 mg/dL (70-110)
--- NOTE | 2022-03-18 11:57 | P.OP ---
Date of Procedure: 03/18/22 Preoperative Diagnosis: 1. Cervical Myelopathy 2. Cervical spondylosis 3. UE and LE weakness 4. MEchanical neck pain Postoperative Diagnosis: 1. Cervical Myelopathy 2. Cervical spondylosis 3. UE and LE weakness 4. MEchanical neck pain Procedure(s) Performed: 1. C2-T2 posteriolateral stabilized fusion (62257, [id number]) 2. Segmental instrumentation C2-T2 (14077) 3. Bilateral laminectomy, partial medial facetecomy and foraminotomy C2-T1 (6304 5, [id number]) Use of IONM Implants: -[place] posterior cervical system -Autograft, Allograft, MagnatOs Anesthesia: GETA Surgeon: Fidencio Ardon Manager Functional #1: Mike Lott (Was presernt and assisted with all aspects of the case from positioning to dressing placement) Estimated Blood Loss (ml): 300 IV fluids (ml): 1,500 Urine output (ml): 250 Pathology: none sent Condition: stable Disposition: PACU Indications for Procedure: Mr. Vega is presenting for evaluation of cervical pain. It was my pleasure to have seen and examined Mr. Vega. In our visit today we have had a chance to go over subjective complaints, physical examination findings and treatments including the natural course history without intervention and various interventional options. The patients imaging demonstrates: XRay Cervical multiview (Lateral, Flexion, Extension, AP, Oblique) [address] [facility] on 07/22/21 of Cervical Spine: Severe anterior osteophytosis noted with bridging osteophytes from C4-7. There are spondylotic changes through the C spine and there is a Grade I anterior listhesis of C2-3 which is mobile on F/e films. There is no C1-2 instabiliyt or C0-1 instability noted at this time. NO fractures noted. No lesions. CT scan[facility] at [facility] from 07/16/21 of Cervical Spine: Moderate multilevel spondylotic changes. There is some subluxation deformity at C2-3 that could relate to old trauma. Subluxation is new compared to old exam. Ligamentous instability is suspected. No acute fracture seen. CT scan report completed at [facility] from 07/16/2021 of lumbar spine: Multilevel spondylotic changes. Spinal stenosis at L3-4 and L5-S1 without much change. No acute bony abnormality. On physical exam, Mr. Vega demonstrates significantly restricted cervical ROM with bilateral upper extremity radiculopathy and weakness. Patient does also demonstrate gross motor function deficit due to his ongoing radicular symptoms. Furthermore there is evidence of gait instability and difficulty with functional testing due to his ongoing symptoms. Patient demonstrates C2-C7 dermatomal deficits bilaterally. Lastly patient is ambulating with the use of a walker. I have explained to the patient that as their condition progresses it will cause further neurological deficits and eventual paralysis. Based on the patients imaging, physical exam, and the rapid progression and disabling nature of their symptoms, at this time I recommend surgery in the form or a: cervical C2-T2 Decompression and Fusion . I discussed the risk and benefits of this procedure at length with Mr. Vega. The patient and his agreed to considered pursuing the procedure abovementioned. Prior to surgery, she should follow up with her PCP (Cardio, ID, IM etc) for clearance. Questions were invited and answered, and the patient wishes to proceed as outlined below. Currently, I am recommendin.cervical C2-T2 Decompression and Fusion Description of Procedure: The patient was seen and examined in the preoperative area. All preoperative protocols were followed. Informed consent was obtained risks and benefits of the procedure were discussed at length. Risks including bleeding infection damage to the surrounding tissue and risk of reoperation were discussed with the patient. Risk of anesthesia up to and including was a discussed with the patient. These are outlined in the risk review. They were willing to accept these risks and all of the risks of surgery. The patient was given a weight- based dose of antibiotics in the form of 2 g Ancef. The patient was seen and evaluated by the anesthesia team who deemed them fit for surgery. The site was marked, the patient was willing to proceed with the procedure. The patient was transferred to the operative suite by the Department of anesthesia. They were then drifted off to sleep by the department anesthesia and GETA was performed. The patient tolerated this well. pre-positioning motors were obtained.Lopez in place from the floor. Once confirmation of lines and ventilation Du head clamp was placed on the patient and secured and the patient was transferred to a [prone Zander table very carefully] with the Du superintendent overhead distribution the head was secured and placed into an optimal position x- ray confirmed this position. Post-positioning motors remained stable. All bony prominences including wrists, elbows, axilla, chest, hips, and thighs, and feet were padded very well. Special attention was paid to the genitalia and these were padded accordingly. SCDs were placed on bilateral lower extremities and were connected. Arms were well padded and placed tucked at his side thumbs down. Shoulders were gently taped down to the table.. Once in position, again we confirmed good ventilation capabilities and that lines were running appropriately. The patient's posterior cervical spine was then exposed. 1010s were placed outlining the incision site. Standard alcohol was used to clean the incision site and allowed to dry. C-arm was used to biomark the patient and confirm level for incision which was marked with a skin marker. Operative briefing was performed with all teams and everyone in agreement to proceed. The patient was then prepped and draped in a normal sterile fashion. Timeout was then performed and all parties were in agreement with the procedure to be performed. Midline skin incision made over the previously biomarked area and dissection taken down midline to the SP of C2-T1. Subperiosteal dissection taken out over the lamina and lateral masses of C2-C7 and TVP of T1 and T2. Once exposure complete, wound was irrigated and c arm brought in for imaging. A penfield 4 was used to bluntly dissect the medial border of C2 pedicle and placed for guidance. C arm used and herson hole made for starting point. C2 pedicle was then drilled in 2mm increments to 22 mm using a ball tip feeler in between each drill session to make sure within the 4 mathias with a good bottom. once this was accomplished a screw was selected and placed under lateral fluoroscopic guidance. Screw had good purchase. This was then repeated on the contralateral side. AP confirmed good placement of both screws. We then proceeded to the T1 screws bilaterally herson was used to remove the facet joint of C7 and to create a starting point for T1. Pedicle finder was then passed into T1 and imaging taken to confirm placement this was then removed and a tap placed ball-tipped probe was then placed and 4 mathias of pedicle fell with good bottom. Screw was then measured and placed into T1. This was repeated at T2 and then the process was repeated on the contralateral side for T1 and T2. The wound was then irrigated. Lateral mass screws were then drilled to 14 mm and placed at each level. Each had a good bite.C5 and C6 on the left side had poor purchase and were left out. Rods were then sized and selected and cut to length. They were bent accordingly and lordosis. There is secured into C2 bilaterally and then sequentially her diet reduced into T1 and T2. All set screws were placed and were then final tightened and the position. Laminectomy was then performed using Ronjair followed by herson bilateral laminotomies and laminectomy was performed using high-speed bur Kerrison Ronjair and up-biting curette. Motors were run before and after decompression and they remain stable. Good pulsations of the cord were noted after decompression. The wound was then copiously irrigated with 3 L of Ancef irrigation followed by 3 L of gentamicin irrigation followed by 3 L of normal sterile saline. Facet joints were drilled at each level to allow for fusion Surgicel was placed over the dura. MagnetOs were placed in the posterior lateral gutters along with Hollie and DBM. This was impacted into position for fusion. 2 g of powdered bank was not placed deep within the wound and a deep drain was placed. A cross- link was placed and final tightened. We then proceeded with layered closure first in the deep fascia with #1 PDS then in the middle fascia with 0 Vicryl superficial fascia was closed with 2-0 Vicryl and skin closed with skin elina. The wound edges approximated very well. The wound was then cleaned and dressed sterilely with an operative foam dressing 4 x 4 and Tegaderm. The drain had good suction. The patient was placed in a hard cervical collar. The patient was transferred back to their hospital bed atraumatically. Du head clamp was removed and pin sites were clear. [Drain continued to hold suction and were in good position]. Patient was then awakened and extubated by the department of anesthesia having tolerated the procedure very well with no complications. They were transferred to the postoperative care unit in stable condition.
[2022-03-18] MEDS ORDERED: fentaNYL (PF) 50 MCG/1 ML VIAL IVP ONE ×4 (12:15→13:45)
[2022-03-18] MEDS: hydrALAZINE HCL 20 MG/ML 1 ML VIAL IVP ONE ×2 (12:21→13:20)
[2022-03-18] MEDS ORDERED: hydrALAZINE HCL 20 MG/ML 1 ML VIAL IVP ONE (12:54)
[2022-03-18] MEDS ORDERED: LACTATED RINGERS 1,000 ML IV ONE (14:27)
[2022-03-18] MEDS ORDERED: diazePAM 2 MG TAB PO STA (14:49)
[2022-03-18] MEDS: ACETAMINOPHEN TAB 325 MG TAB PO SCH ×2 (15:13→18:03)
[2022-03-18 16:47] LABS: Glucose,Whole Blood 189 mg/dL (70-110)
[2022-03-18] MEDS ORDERED: DEXTROSE 50% SYRINGE 50 ML IVP PRN ×2 (17:34)
--- NOTE | 2022-03-18 17:38 | P.CONS ---
History of Present Illness - Reason for Consult Consult date: 03/18/22 HTN Requesting physician: Fidencio Ardon - Chief Complaint neck pain - History of Present Illness Patient is a 81-year-old male with known coronary artery disease, systolic cardiomyopathy with ejection fraction 25%, prostate cancer, diabetes, congestive heart failure, hypertension, dyslipidemia, and multiple other comorbid conditions who presented for elective C2 to T2 posterior lateral stabilization with fusion. Patient was pre-risk stratified by nephrology, cardiology, pulmonary, and primary care. In the PACU patient developed hypertension and issues with pain control. He was given multiple doses of Dilaudid and hydralazine. Patient seen and examined at bedside. He is lethargic due to medications for pain control. He c/o SOB that is chronic in nature. He denies chest pain, nausea, vomiting, light headedness. He complains of 10/10 neck pain. He decided to have surgery due to neck pain with burning radiation into b/l arms. present at bedside and all questions answered. unable to complete ROS due to lethargy. Vital signs reviewed General: nontoxic, no distress, appears at stated age Derm: warm, dry Head: atraumatic, normocephalic, symmetric Eyes: EOMI, no lid lag, anicteric sclera, pupils equal round reactive to light ENT: Nose and ears atraumatic, no thrush, no pharyngeal erythema Neck: No thyromegaly, no cervical lymphadenopathy, trachea midline, supple Mouth: no lip lesion, mucus membranes moist Cardiovascular: S1S2 reg, no murmur, positive posterior tibial pulse bilateral, no edema, capillary refill less than 2 seconds Lungs: clear to auscultation bilateral, no rhonchi, no rales, no wheeze, no accessory muscle use Abdominal: soft, nontender to palpation, no guarding, no appreciable organomegaly, normal bowel sounds Ext: no gross muscle atrophy, muscle strength 5 out of 5 in all 4 extremities, no contractures Neuro: CN II-XII grossly intact, light touch intact all 4 extremities, finger to nose within normal limits, Psych: Alert, oriented, appropriate affect Assessment/Plan: 81 yo M s/p C2 to T2 posterior lateral stabilization with fusion Acute delirium, due to pain medications - supportive environment - tele, add continuous pulse ox for over night Accelerate HTN - s/p hydralazine 15 mg IVP in PACU - check BP q1 hour X 4, then per protocol - resume home metoprolol, Losartan, Aldactone Diabetes mellitus type 2 with neuropathy - last A1C was 5.11 september 2021, not chronically on medications - start SSI, monitor BS Chronic kidney disease stage 3/4 - baseline Cr 2.1-2.5 - BMP in AM - Avoid further NSAIDS -- received Mobic and vanco pre-op - if AM CR is >2.5 will consult nephrology Anemia, likely due to chronic renal disease - baseline appears to be 9-10 - CBC in AM Systolic congestive heart failure with ejection fraction 25% with AICD in place - monitor fluid stats closely - daily weights -Consult cardiology if patient becomes fluid overloaded -Resume Lasix, Aldactone, beta mandie, ARB Chronic: Dyslipidemia History of pulmonary embolism Myocardial infarction, coronary artery disease Interstitial Celina Disease/restrictive lung disease Osteoarthritis Prostate cancer Chronic back pain Glaucoma Diverticulosis Gout Thank you for allowing us to participate in the care of this pleasant patient. Do not hesitate to contact us with questions. Someone can be reached from the [facility] hospitalist group all hours of the day at [phone] or via [facility]. Past Medical History Past Medical History: Coronary Artery Disease (CAD), Cancer, Chest Pain / Angina, Heart Failure, Diabetes Mellitus, Hyperlipidemia, Hypertension, Myocardial Infarction (ID), Renal Disease Additional Past Medical History / Comment(s): hx prostate cancer with surgery, chronic neck, bilateral shoulder and back pain, hx Gout, fatty tumor on right back, gallstones. ID's in 1981 and 2017. Ventricular Tachycardia. Ischemic Cardiomyopathy, left lung pulmonary embolism, non-dependent diabetes mellitus type 2, neuropathy b/l LE, chronic kidney disease stage IV, diverticular disease, gout, glaucoma right eye, congestive heart failure, hypertension, dyslipidemia, coronary artery disease having "gallbladder" symptoms Last Myocardial Infarction Date:: 2016 History of Any Multi-Drug Resistant Organisms: None Reported Past Surgical History: AICD, Back Surgery, Heart Catheterization, Hernia Repair, Pacemaker Additional Past Surgical History / Comment(s): CARDIOVERSION, lumbar surgery X2, cervical epidural injections, bilateral inguinal hernia repairs, TURP, colono scopy, bilateral cataract removals., Heart Cath 03/22/20 Past Anesthesia/Blood Transfusion Reactions: No Reported Reaction Date of Last Stent Placement:: 08/11/17 Type of Cardiac Device: AICD Device Placement Date:: 01-10-17 Smoking Status: Former smoker - Past Family History Mother History Unknown: Yes Family Medical History: Unable to Obtain Additional Family Medical History / Comment(s): Mother of unknown cause. Father History Unknown: Yes Family Medical History: Unable to Obtain Additional Family Medical History / Comment(s): Father of unknown cause. Medications and Allergies Home Medications Medication Instructions Recorded Confirmed Type Atorvastatin [Lipitor] 40 mg PO HS 01/07/17 03/18/22 History Gabapentin [Neurontin] 300 mg PO 0800,1700 01/10/20 03/18/22 History Apixaban [Eliquis] 5 mg PO BID 03/20/20 03/18/22 History Furosemide [Lasix] 40 mg PO DAILY 03/20/20 03/18/22 History calcitrioL [Calcitriol] 0.25 mcg PO Q7D 04/26/21 03/18/22 History allopurinoL [Zyloprim] 200 mg PO DAILY 07/16/21 03/18/22 History Acetaminophen [Tylenol Arthritis] 650 mg PO BID 01/05/22 03/18/22 History Alpha Lipoic Acid 600 mg PO DAILY 01/05/22 03/18/22 History Cholecalciferol [Vitamin D3 (25 50 mcg PO DAILY 01/05/22 03/18/22 History Mcg = 1000 Iu)] Latanoprost [Latanoprost 0.005%] 1 drop LEFT EYE HS 01/05/22 03/18/22 History calcium polycarbophiL [Fibercon] 625 mg PO BID 01/05/22 03/18/22 History Losartan [Cozaar] 100 mg PO DAILY #30 tab 01/06/22 03/18/22 Rx Metoprolol Tartrate [Lopressor] 50 mg PO BID 01/17/22 03/18/22 History Acetaminophen [Tylenol] 325 mg PO BID 03/14/22 03/18/22 History Difluprednate [Difluprednate Ophth 1 drop RIGHT EYE QID 03/14/22 03/18/22 History Soln] Ofloxacin 0.3% Ophth Soln [Ocuflox 1 drops RIGHT EYE QID 03/14/22 03/18/22 History Ophth Soln] Spironolactone [Aldactone] 12.5 mg PO DAILY 03/14/22 03/18/22 History tiZANidine [Zanaflex] 2 mg PO BID 03/14/22 03/18/22 History traMADol HCl [Ultram] 50 mg PO BID 03/14/22 03/18/22 History Allergies Allergy/AdvReac Type Severity Reaction Status Date / Time amoxicillin Allergy Severe Unknown- Verified 03/18/22 06:29 was hospitalized hydrocodone bitartrate AdvReac Confusion Verified 03/18/22 06:29 [From Vicodin] Physical Exam Osteopathic Statement: *. No significant issues noted on an osteopathic structural exam other than those noted in the History and Physical/Consult. Vitals: Vital Signs Temp Pulse Pulse Resp BP BP Pulse Ox 03/18/22 15:12 65 16 167/89 98 03/18/22 14:45 67 18 168/73 99 03/18/22 14:22 66 18 179/84 96 03/18/22 14:07 65 15 159/72 96 03/18/22 13:52 66 16 164/61 97 03/18/22 13:37 64 18 164/63 96 03/18/22 13:22 63 16 160/59 99 03/18/22 13:07 61 18 177/69 98 03/18/22 12:52 61 18 190/76 173/76 98 03/18/22 12:37 60 22 187/75 200/88 96 03/18/22 12:23 58 L 16 197/86 200/88 99 03/18/22 12:08 60 20 205/94 202/93 97 03/18/22 11:53 59 L 22 202/91 220/93 96 03/18/22 11:38 58 L 19 200/90 205/92 96 03/18/22 11:23 97.2 F L 56 L 14 189/72 173/63 100 03/18/22 06:41 97.0 F L 52 L 18 179/79 98 Intake and Output 03/18/22 03/18/22 03/18/22 06:59 14:59 22:59 Intake Total 2092 Output Total 500 Balance 1592 Intake: IV 2091 Output: Urine 200 Estimated Blood Loss 300 Other: Weight 103.6 kg Results Labs: Abnormal Lab Results - Last 24 Hours (Table) 03/18/22 03/18/22 03/18/22 Range/Units 06:59 11:52 16:45 POC Glucose (mg/dL) 124 H 141 H 189 H (70-110) mg/dL
[2022-03-18] MEDS: DIFLUPREDNATE RIGHT EYE SCH ×4 (18:03→22:08)
[2022-03-18] MEDS: GABAPENTIN 300 MG CAP PO SCH ×2 (18:03→22:10)
--- NOTE | 2022-03-18 18:17 | CT ---
EXAMINATION TYPE: CT cervical spine wo con DATE OF EXAM: 03/18/2022 COMPARISON: 11/11/2021 HISTORY: post-op CT DLP: 591.2 mGycm Automated exposure control for dose reduction was used. Images obtained from the skull base to T1 vertebra with no contrast. There are rods and screws fusing posteriorly the cervical spine from the level of C2 to the T2 verteb ra. There is metal artifact. There is large hypertrophic anterior bridging osteophyte formation from C4 to T1 level. No compression fracture. No subluxation. There is multilevel cervical laminectomy def ect. There is posterior drainage catheter. There are posterior skin elina in the midline. IMPRESSION: Recent postsurgical changes. No complicating process seen. Multilevel posterior fusion surgery.
[2022-03-18] MEDS ORDERED: GABAPENTIN 300 MG CAP PO SCH (19:00)
[2022-03-18] MEDS ORDERED: LATANOPROST 0.005% OPHTH DROPS 2.5 ML BTL LEFT EYE SCH (21:00)
[2022-03-18 21:17] LABS: Glucose,Whole Blood 163 mg/dL (70-110)
[2022-03-18] MEDS: HYDROcodone/APAP 10-325MG 1 EACH TAB PO PRN (21:23)
[2022-03-18] MEDS: METOPROLOL TARTRATE 50 MG TAB PO SCH (22:10)
[2022-03-18] MEDS: INSULIN ASPART (NovoLOG) 100 UNIT/ML VIAL SQ SCH (22:10)
[2022-03-18] MEDS: ATORVASTATIN 40 MG TAB PO SCH (22:10)
[2022-03-18] MEDS: LATANOPROST 0.005% OPHTH DROPS 2.5 ML BTL LEFT EYE SCH (22:11)
[2022-03-18] MEDS: HYDROmorphone 1 MG/ML 1 ML SYRINGE IVP PRN (22:31)
[2022-03-19] MEDS: ACETAMINOPHEN TAB 325 MG TAB PO SCH ×5 (00:13→23:29)
[2022-03-19] MEDS: HYDROmorphone 1 MG/ML 1 ML SYRINGE IVP PRN ×5 (00:43→21:59)
[2022-03-19] MEDS: HYDROcodone/APAP 10-325MG 1 EACH TAB PO PRN (05:44)
[2022-03-19 06:11] LABS: Glucose,Whole Blood 126 mg/dL (70-110)
[2022-03-19] MEDS: LACTATED RINGERS 1,000 ML IV SCH (06:26)
[2022-03-19] MEDS: INSULIN ASPART (NovoLOG) 100 UNIT/ML VIAL SQ SCH ×4 (06:27→21:48)
[2022-03-19 06:53] LABS: African American GFR (CKD) 28 (>60 ml/min/1.73 sqM); Anion Gap 10 mmol/L; Blood Urea Nitrogen 48 mg/dL (9-20); Carbon Dioxide 18 mmol/L (22-30); Chloride 113 mmol/L (98-107); Glucose 130 mg/dL (74-99); Non-African American GFR(CKD) 24 (>60 ml/min/1.73 sqM); Potassium 5.6 mmol/L (3.5-5.1); Sodium 141 mmol/L (137-145)
[2022-03-19 06:59] LABS: Anisocytosis Slight; HCT 31.6 % (39.0-53.0); Hypochromasia Marked; MCH 25.3 pg (25.0-35.0); MCHC 28.1 g/dL (31.0-37.0); MCV 89.9 fL (80.0-100.0); Mean Platelet Volume 8.8; Platelet Count 233 k/uL (150-450); RBC 3.51 m/uL (4.30-5.90); RDW 17.5 % (11.5-15.5); WBC 13.3 k/uL (3.8-10.6)
[2022-03-19 07:21] LABS: HGB 8.9 gm/dL (13.0-17.5)
--- NOTE | 2022-03-19 08:15 | P.PN ---
Subjective Progress Note Date: 03/19/22 Principal diagnosis: Cervical spondylosis Cervical stenosis Patient seen and examined this morning. Patient was sitting up in chair, was at bedside. He has complaints this morning of moderate cervical pain. Medications have been reviewed and adjusted. Surgical dressing is clean dry and intact, Hemovac present and patent. Patient denies any numbness or tingling to bilateral upper extremities. Patient has been urinating without any difficulty. He has been up standing with walker to use a urinal, tolerating activity well. Patient to work with PT/OT today. He has been afebrile, denies nausea/vomiting, or chest pain. Objective - Vital Signs Vital signs: Vital Signs Temp 98.2 F 03/19/22 02:00 Pulse 68 03/19/22 02:00 Resp 18 03/19/22 02:00 BP 172/71 03/19/22 02:00 Pulse Ox 97 03/19/22 02:00 FiO2 Intake & Output 03/18/22 03/19/22 03/19/22 18:59 06:59 18:59 Intake Total 2091 Output Total 500 500 Balance 1592 -500 Weight 103.1 kg Intake: IV 2091 Output: Urine 200 500 Estimated Blood Loss 300 Other: Voiding Method Indwelling Catheter - Exam Physical Examination General: The patient is awake and alert, in no acute distress Skin: Skin is warm and dry with no obvious rashes or lesions. Hairy patches absent, no dorsal skin dimples, no cafe au lait spots. Surgical incision to the cervical and thoracic region, dressing is clean dry and intact. Hemovac present. Eye: Pupils are equal, round and reactive to light, extra-ocular movements are intact; there is normal conjunctiva bilaterally. Neck: The neck is supple, there is mild tenderness and limited ROM due to surgical procedure. Hard collar Present. Cardiovascular: There is a regular rate and rhythm. No murmur, rub or gallop is appreciated. Respiratory: Lungs are clear to auscultation, respirations are non-labored, breath sounds are equal. Gastrointestinal: Soft, non-distended, non-tender abdomen. Back: There is no tenderness to palpation in the midline, paralumbar, parathoracic or buttocks region. There is no obvious deformity . Musculoskeletal: ROM limited secondary to pain and stiffness from surgical procedure. Muscle strength in all major muscle groups of bilateral upper extremities 4/5, bilateral lower extremities 4/5. Neurological: CN 2-12 intact. There are no obvious motor or sensory deficits. Movement and coordination equal and intact. Sensory exam to light touch intact C5-T1 and intact from L2-S1. Reflexes 2/4 in bilateral upper and lower extremities. Negative Hoffmans, babinski, and clonus signs. Psychiatric: Cooperative, appropriate mood & affect, normal judgment. - Labs CBC & Chem 7: 03/19/22 06:13 03/19/22 06:13 Labs: Abnormal Lab Results - Last 24 Hours (Table) 03/18/22 03/18/22 03/18/22 Range/Units 11:52 16:45 21:16 WBC (3.8-10.6) k/uL RBC (4.30-5.90) m/uL Hgb (13.0-17.5) gm/dL Hct (39.0-53.0) % MCHC (31.0-37.0) g/dL RDW (11.5-15.5) % Potassium (3.5-5.1) mmol/L Chloride (98-107) mmol/L Carbon Dioxide (22-30) mmol/L BUN (9-20) mg/dL Creatinine (0.66-1.25) mg/dL Glucose (74-99) mg/dL POC Glucose (mg/dL) 141 H 189 H 163 H (70-110) mg/dL 03/19/22 03/19/22 03/19/22 Range/Units 06:09 06:13 06:13 WBC 13.3 H (3.8-10.6) k/uL RBC 3.51 L (4.30-5.90) m/uL Hgb 8.9 L D (13.0-17.5) gm/dL Hct 31.6 L (39.0-53.0) % MCHC 28.1 L (31.0-37.0) g/dL RDW 17.5 H (11.5-15.5) % Potassium 5.6 H (3.5-5.1) mmol/L Chloride 113 H (98-107) mmol/L Carbon Dioxide 18 L (22-30) mmol/L BUN 48 H (9-20) mg/dL Creatinine 2.45 H (0.66-1.25) mg/dL Glucose 130 H (74-99) mg/dL POC Glucose (mg/dL) 126 H (70-110) mg/dL Assessment and Plan Assessment: Postop day 1: C2-T2 decompression and fusion Cervical spondylosis Cervical stenosis Plan: -Appreciate senior management consultant and team management. -Activity: Ambulate QID, OOB all meals, up and about, limit lifting bending twisting to less than 5 lbs. Use walker or cane if needed for stability. -Daily PT/OT, increase ambulation strength and balance. -Hard Cervical collar at all times, may remove for shower. -Pain control: Adequate at this time -Meds: reviewed -GI ppx: senna, Miralax -DVT PPX: OK to restart Heparin tonight -Hygiene: Shower today. Maintain dressing clean and dry. -Drains: Maintain for now. Continue to monitor output. -Encourage IS 10x/hr -Dispo: Anticipate discharge home with homecare the next 24-72 hours *I reviewed and discussed this case with my attending Dr. Ardon, whom has reviewed this chart and films and is in agreement with assessment and plan of care as outlined above. I have personally seen and examined the patient, performed the documentation and the assessment and plan as written. Number of minutes spent on the visit: 20m.
[2022-03-19] MEDS ORDERED: LOSARTAN 50 MG TAB PO SCH (09:00)
[2022-03-19] MEDS ORDERED: CALCIUM GLUCONATE IN NACL 1 GM in SALINE 1 100ML.BAG IVPB ONE (09:00)
[2022-03-19] MEDS ORDERED: SPIRONOLACTONE 25 MG TAB PO SCH (09:00)
[2022-03-19] MEDS ORDERED: SODIUM ZIRCONIUM CYCLOSILICATE 10 GM PACKET PO ONE (09:00)
[2022-03-19] MEDS ORDERED: SODIUM BICARB 8.4% 50 ML SYR (1 MEQ/ML) IV STA (09:59)
[2022-03-19] MEDS: HYDROcodone/APAP 10-325MG 1 EACH TAB PO SCH ×5 (10:43→23:29)
[2022-03-19] MEDS: allopurinoL 100 MG TAB PO SCH (10:43)
[2022-03-19] MEDS: CYCLOBENZAPRINE 5 MG TAB PO SCH ×3 (10:43→21:59)
[2022-03-19] MEDS: FUROSEMIDE 40 MG TAB PO SCH (10:44)
[2022-03-19] MEDS: DIFLUPREDNATE RIGHT EYE SCH ×4 (10:44→21:59)
[2022-03-19] MEDS: GABAPENTIN 300 MG CAP PO SCH ×3 (10:44→21:59)
[2022-03-19] MEDS: METOPROLOL TARTRATE 50 MG TAB PO SCH ×2 (10:44→20:38)
--- NOTE | 2022-03-19 11:19 | P.NPCON ---
History of Present Illness - Reason for Consult acute renal failure, chronic renal failure - History of Present Illness Reason for consultation: Acute kidney injury on chronic kidney disease History of present illness: This time patient is a 81-year-old male seen in renal consultation for acute kidney injury on chronic kidney disease. Patient has chronic kidney disease stage IV with baseline creatinine 2-2.2 secondary to diabetic kidney disease and nephrosclerosis. Creatinine today is 2.45. Potassi um is high at 5.6 and he is also noted to be acidotic with a bicarb level of 18. Patient has been following with orthopedic surgery for cervical myelopathy as well as upper and lower extremity weakness. Patient underwent C2 to T2 posterior lateral stabilized fusion, bilateral laminectomy, partial medial facetectomy and foraminotomy C2 to T1 on 03/18/2022. He is currently in a c- collar. No chest pain or shortness of breath. Lopez catheter was placed but the balloon could not be inserted. Currently does not have a Lopez catheter. Patient states he has been voiding. Patient has long-standing history of diabetes. I do see spironolactone and his home medication list. He was also taking Lasix at home which is currently held. Additionally he was also on losartan which is currently held. Vital signs are stable. General: Awake. No acute distress. HEENT: C-collar noted. LUNGS: Breath sounds decreased. HEART: Rate and Rhythm are regular. ABDOMEN: Soft, obese. EXTREMITITES: 1+ edema. Past Medical History Past Medical History: Coronary Artery Disease (CAD), Cancer, Chest Pain / Angina, Heart Failure, Diabetes Mellitus, Hyperlipidemia, Hypertension, Myocardial Infarction (SD), Renal Disease Additional Past Medical History / Comment(s): hx prostate cancer with surgery, chronic neck, bilateral shoulder and back pain, hx Gout, fatty tumor on right back, gallstones. SD's in 1980 and 2017. Ventricular Tachycardia. Ischemic Cardiomyopathy, left lung pulmonary embolism, non-dependent diabetes mellitus type 2, neuropathy b/l LE, chronic kidney disease stage IV, diverticular disease, gout, glaucoma right eye, congestive heart failure, hypertension, dyslipidemia, coronary artery disease having "gallbladder" symptoms Last Myocardial Infarction Date:: 2016 History of Any Multi-Drug Resistant Organisms: None Reported Past Surgical History: AICD, Back Surgery, Heart Catheterization, Hernia Repair, Pacemaker Additional Past Surgical History / Comment(s): CARDIOVERSION, lumbar surgery X2, cervical epidural injections, bilateral inguinal hernia repairs, TURP, colonoscopy, bilateral cataract removals., Heart Cath 03/22/20 Past Anesthesia/Blood Transfusion Reactions: No Reported Reaction Date of Last Stent Placement:: 10/18/16 Type of Cardiac Device: AICD Device Placement Date:: 01-10-17 Smoking Status: Former smoker - Past Family History Mother History Unknown: Yes Family Medical History: Unable to Obtain Additional Family Medical History / Comment(s): Mother of unknown cause. Father History Unknown: Yes Family Medical History: Unable to Obtain Additional Family Medical History / Comment(s): Father of unknown cause. Medications and Allergies Home Medications Medication Instructions Recorded Confirmed Type Atorvastatin [Lipitor] 40 mg PO HS 01/07/17 03/18/22 History Gabapentin [Neurontin] 300 mg PO 0800,1700 01/10/20 03/18/22 History Apixaban [Eliquis] 5 mg PO BID 03/20/20 03/18/22 History Furosemide [Lasix] 40 mg PO DAILY 03/20/20 03/18/22 History calcitrioL [Calcitriol] 0.25 mcg PO Q7D 04/26/21 03/18/22 History allopurinoL [Zyloprim] 200 mg PO DAILY 07/16/21 03/18/22 History Acetaminophen [Tylenol Arthritis] 650 mg PO BID 01/05/22 03/18/22 History Alpha Lipoic Acid 600 mg PO DAILY 01/05/22 03/18/22 History Cholecalciferol [Vitamin D3 (25 50 mcg PO DAILY 01/05/22 03/18/22 History Mcg = 1000 Iu)] Latanoprost [Latanoprost 0.005%] 1 drop LEFT EYE HS 01/05/22 03/18/22 History calcium polycarbophiL [Fibercon] 625 mg PO BID 01/05/22 03/18/22 History Losartan [Cozaar] 100 mg PO DAILY #30 tab 01/06/22 03/18/22 Rx Metoprolol Tartrate [Lopressor] 50 mg PO BID 01/17/22 03/18/22 History Acetaminophen [Tylenol] 325 mg PO BID 03/14/22 03/18/22 History Difluprednate [Difluprednate Ophth 1 drop RIGHT EYE QID 03/14/22 03/18/22 History Soln] Ofloxacin 0.3% Ophth Soln [Ocuflox 1 drops RIGHT EYE QID 03/14/22 03/18/22 History Ophth Soln] Spironolactone [Aldactone] 12.5 mg PO DAILY 03/14/22 03/18/22 History tiZANidine [Zanaflex] 2 mg PO BID 03/14/22 03/18/22 History traMADol HCl [Ultram] 50 mg PO BID 03/14/22 03/18/22 History Allergies Allergy/AdvReac Type Severity Reaction Status Date / Time amoxicillin Allergy Severe Unknown- Verified 03/18/22 06:29 was hospitalized hydrocodone bitartrate AdvReac Confusion Verified 03/18/22 06:29 [From Vicodin] Physical Exam Vitals: Vital Signs Temp Pulse Pulse Resp BP BP Pulse Ox 03/19/22 06:53 97.1 F L 71 16 155/84 92 L 03/19/22 02:00 98.2 F 68 18 172/71 97 03/18/22 21:10 86 138/78 95 03/18/22 20:00 78 145/78 97 03/18/22 19:00 154/79 03/18/22 18:10 68 162/77 99 03/18/22 18:00 162/77 03/18/22 17:19 98 03/18/22 15:12 65 16 167/89 98 03/18/22 14:45 67 18 168/73 99 03/18/22 14:22 66 18 179/84 96 03/18/22 14:07 65 15 159/72 96 03/18/22 13:52 66 16 164/61 97 03/18/22 13:37 64 18 164/63 96 03/18/22 13:22 63 16 160/59 99 03/18/22 13:07 61 18 177/69 98 03/18/22 12:52 61 18 190/76 173/76 98 03/18/22 12:37 60 22 187/75 200/88 96 03/18/22 12:23 58 L 16 197/86 200/88 99 03/18/22 12:08 60 20 205/94 202/93 97 03/18/22 11:53 59 L 22 202/91 220/93 96 03/18/22 11:38 58 L 19 200/90 205/92 96 03/18/22 11:23 97.2 F L 56 L 14 189/72 173/63 100 Intake and Output 03/18/22 03/19/22 03/19/22 22:59 06:59 14:59 Output Total 500 Balance -500 Output: Urine 500 Other: Voiding Method Indwelling Catheter # Voids 1 Weight 103.1 kg Results - Lab Results Most recent lab results Calcium 9.0 mg/dL (8.4-10.2) 03/19/22 06:13 03/19/22 06:13 03/19/22 06:13 Assessment and Plan Plan: Assessment: 1. Acute kidney injury mostly prerenal with concern for urinary retention. Creatinine 2.45 today. 2. Chronic kidney disease stage IV with baseline creatinine 2-2.2 secondary to diabetic kidney disease and nephrosclerosis. 3. Hyperkalemia secondary to acute kidney injury, acidosis and further worsened with the use of spironolactone and losartan. 4. Metabolic acidosis secondary to acute kidney injury and IV fluids. 5. Lower extremity edema. 6. Chronic kidney disease mineral bone disease maintained on calcitriol. 7. Anemia of chronic kidney disease. Plan: Patient received IV calcium gluconate, IV insulin, IV bicarb as well as lokelma today. Add oral sodium bicarbonate. Maintain oral Lasix. Continue to monitor bladder scans to make sure no urinary retention. Continue to hold losartan and spironolactone. Urology consulted for difficult Lopez catheter placement. Repeat potassium level this evening. Low potassium diet. Check iron studies. Continue to monitor renal function and urine output. Thank you for the consultation. I will continue to follow the patient with you during his hospital stay.
[2022-03-19 11:37] LABS: Glucose,Whole Blood 155 mg/dL (70-110)
[2022-03-19] MEDS: SODIUM BICARBONATE TAB 650 MG TAB PO SCH ×3 (12:15→21:59)
[2022-03-19 16:54] LABS: Glucose,Whole Blood 155 mg/dL (70-110)
--- NOTE | 2022-03-19 16:58 | P.PN ---
Subjective Progress Note Date: 03/19/22 (delayed charting seen at 10am) Patient is a 81-year-old male with known coronary artery disease, systolic cardiomyopathy with ejection fraction 25%, prostate cancer, diabetes, congestive heart failure, hypertension, dyslipidemia, and multiple other comorbid conditions who presented for elective C2 to T2 posterior lateral stabilization with fusion. Patient was pre-risk stratified by nephrology, cardiology, pulmonary, and primary care. In the PACU patient developed hypertension and issues with pain control. He was given multiple doses of Dilaudid and hydralazine. Patient seen and examined at bedside with . He continues to be lethargic. He reports a Tendinitis Type Pain. He Denies Any Nausea or Vomiting. States He Has Been Wanting to Get up to Go to the Bathroom Frequently. General: nontoxic, no distress, appears at stated age Derm: warm, dry Head: atraumatic, normocephalic, symmetric, cervical collar in place Eyes: EOMI, no lid lag, anicteric sclera Mouth: no lip lesion, mucus membranes moist Cardiovascular: S1S2 reg, no murmur, positive posterior tibial pulse bilateral, Lungs: CTA bilateral, no rhonchi, no rales , no accessory muscle use Abdominal: soft, nontender to palpation, no guarding, no appreciable organomegaly Ext: no gross muscle atrophy, no edema, no contractures Neuro: CN II-XI grossly intact, no focal neuro deficits Psych: Lethargic, oriented to self and situation, appropriate affect Assessment/Plan: 81 yo M s/p C2 to T2 posterior lateral stabilization with fusion Hyperkalemia - hold ARB, aldactone - bicarb X 1 - Calcium gluconate X 1 - consult nephrology Acute delirium, due to pain medications - supportive environment - tele, add continuous pulse ox for over night Diabetes mellitus type 2 with neuropathy - last A1C was 5.11 september 2021, not chronically on medications - continue SSI, monitor BS Chronic kidney disease stage 3/4 - baseline Cr 2.1-2.5 - BMP in AM Anemia, likely due to chronic renal disease- stable - baseline appears to be 9-10 - CBC in AM Systolic congestive heart failure with ejection fraction 25% with AICD in place - monitor fluid stats closely - daily weights -Consult cardiology if patient becomes fluid overloaded -Continue Lasix, beta mandie paroxysmal A fib - eliquis on hold, resume when okay with orthospine - telemetry Accelerate HTN, resolved Chronic: Dyslipidemia History of pulmonary embolism Myocardial infarction, coronary artery disease Interstitial [place] Disease/restrictive lung disease Osteoarthritis Prostate cancer Chronic back pain Glaucoma Diverticulosis Gout Thank you for allowing us to participate in the care of this pleasant patient. Do not hesitate to contact us with questions. Someone can be reached from the [facility] hospitalist group all hours of the day at [phone] or via perfect serve. Active Medications Generic Name Dose Route Start Last Admin Trade Name Freq PRN Reason Stop Dose Admin Acetaminophen 650 mg 03/18/22 12:00 03/19/22 13:28 Acetaminophen Tab 325 Mg Tab PO 650 mg Q6HR ANGELIQUE Administration Hydrocodone Bitart/Acetaminophen 1 each 03/18/22 11:20 Hydrocodone/Apap 5-325mg 1 Each Tab PO Q6HR PRN Pain Scale 4 - 6 Hydrocodone Bitart/Acetaminophen 1 each 03/19/22 08:00 03/19/22 13:28 Hydrocodone/Apap 10-325mg 1 Each Tab PO 1 each Q4H ANGELIQUE Administration Allopurinol 200 mg 03/19/22 09:00 03/19/22 10:43 Allopurinol 100 Mg Tab PO 200 mg DAILY ANGELIQUE Administration Atorvastatin Calcium 40 mg 03/18/22 21:00 03/18/22 22:10 Atorvastatin 40 Mg Tab PO 40 mg HS ANGELIQUE Administration Calcitriol 0.25 mcg 03/22/22 09:00 Calcitriol 0.25 Mcg Cap PO Q7D ANGELIQUE Cyclobenzaprine HCl 5 mg 03/19/22 09:00 03/19/22 10:43 Cyclobenzaprine 5 Mg Tab PO 5 mg TID ANGELIQUE Administration Dextrose/Water 25 ml 03/18/22 17:34 Dextrose 50% Syringe 50 Ml IVP PER PROTOCOL PRN Hypoglycemia Protocol Dextrose/Water 50 ml 03/18/22 17:34 Dextrose 50% Syringe 50 Ml IVP PER PROTOCOL PRN Hypoglycemia Protocol Furosemide 40 mg 03/19/22 09:00 03/19/22 10:44 Furosemide 40 Mg Tab PO 40 mg DAILY ANGELIQUE Administration Gabapentin 300 mg 03/18/22 16:00 03/19/22 10:44 Gabapentin 300 Mg Cap PO 300 mg TID ANGELIQUE Administration Hydromorphone HCl 0.5 mg 03/18/22 11:20 03/18/22 13:21 Hydromorphone 0.5 Mg/0.5 Ml Syringe IVP 0.5 mg Q3HR PRN Administration Pain Scale 4 - 6 Hydromorphone HCl 1 mg 03/18/22 11:20 03/19/22 12:19 Hydromorphone 1 Mg/Ml 1 Ml Syringe IVP 1 mg Q3HR PRN Administration Pain Scale of 7 - 10 Lactated Ringer's 1,000 mls @ 20 mls/hr 03/18/22 06:16 03/19/22 06:26 Lactated Ringers IV Not Given .Q24H [facility] Insulin Aspart 0 unit 03/18/22 21:00 03/19/22 13:28 Insulin Aspart (Novolog) 100 Unit/Ml Vial SQ 1 unit ACHS [facility] Administration Protocol Latanoprost 1 drops 03/18/22 21:00 03/18/22 22:11 Latanoprost 0.005% Ophth Drops 2.5 Ml Btl LEFT EYE 1 drops HS ANGELIQUE Administration Magnesium Hydroxide 2,400 mg 03/18/22 11:20 Magnesium Hydroxide 2,400 Mg/10 Ml Cup PO DAILY PRN Constipation Metoprolol Tartrate 50 mg 03/18/22 21:00 03/19/22 10:44 Metoprolol Tartrate 50 Mg Tab PO 50 mg BID ANGELIQUE Administration Difluprednate [ 1 drop 03/18/22 19:00 03/19/22 13:29 Difluprednate Ophth RIGHT EYE 1 drop Soln] 5 Ml Ml QID [facility] Administration Senna/Docusate Sodium 2 each 03/18/22 11:20 Sennosides-Docusate Sodium 1 Each Tab PO DAILY PRN Constipation Sodium Bicarbonate 650 mg 03/19/22 11:15 03/19/22 12:15 Sodium Bicarbonate Tab 650 Mg Tab PO Not Given TID [facility] Objective - Vital Signs Vital signs: Vital Signs Temp 98.2 F 03/19/22 13:57 Pulse 79 03/19/22 13:57 Resp 18 03/19/22 13:57 BP 151/62 03/19/22 13:57 Pulse Ox 91 L 03/19/22 13:57 FiO2 Intake & Output 03/18/22 03/19/22 03/19/22 18:59 06:59 18:59 Intake Total 2091 Output Total 500 500 Balance 1592 -500 Weight 103.1 kg Intake: IV 2091 Output: Urine 200 500 Estimated Blood Loss 300 Other: Voiding Method Indwelling Catheter Toilet Urinal # Voids 1 - Labs CBC & Chem 7: 03/19/22 06:13 03/19/22 16:24 Labs: Abnormal Lab Results - Last 24 Hours (Table) 03/18/22 03/19/22 03/19/22 Range/Units 21:16 06:09 06:13 WBC 13.3 H (3.8-10.6) k/uL RBC 3.51 L (4.30-5.90) m/uL Hgb 8.9 L D (13.0-17.5) gm/dL Hct 31.6 L (39.0-53.0) % MCHC 28.1 L (31.0-37.0) g/dL RDW 17.5 H (11.5-15.5) % Potassium (3.5-5.1) mmol/L Chloride (98-107) mmol/L Carbon Dioxide (22-30) mmol/L BUN (9-20) mg/dL Creatinine (0.66-1.25) mg/dL Glucose (74-99) mg/dL POC Glucose (mg/dL) 163 H 126 H (70-110) mg/dL 03/19/22 03/19/22 03/19/22 Range/Units 06:13 11:34 16:52 WBC (3.8-10.6) k/uL RBC (4.30-5.90) m/uL Hgb (13.0-17.5) gm/dL Hct (39.0-53.0) % MCHC (31.0-37.0) g/dL RDW (11.5-15.5) % Potassium 5.6 H (3.5-5.1) mmol/L Chloride 113 H (98-107) mmol/L Carbon Dioxide 18 L (22-30) mmol/L BUN 48 H (9-20) mg/dL Creatinine 2.45 H (0.66-1.25) mg/dL Glucose 130 H (74-99) mg/dL POC Glucose (mg/dL) 155 H 155 H (70-110) mg/dL
[2022-03-19] MEDS: ATORVASTATIN 40 MG TAB PO SCH (20:38)
[2022-03-19] MEDS: LATANOPROST 0.005% OPHTH DROPS 2.5 ML BTL LEFT EYE SCH (20:39)
[2022-03-19 21:26] LABS: Glucose,Whole Blood 143 mg/dL (70-110)
[2022-03-20] MEDS: HYDROmorphone 1 MG/ML 1 ML SYRINGE IVP PRN (01:28)
[2022-03-20 03:25] LABS: Glucose,Whole Blood 146 mg/dL (70-110)
--- NOTE | 2022-03-20 03:47 | P.EN ---
81 year old male with multiple comorbidities. chronic systolic CHF with LVEF 25%, CKD 3, P afib , anemia , DM admitted for spinal surgery , that he tolerated well. RN notified me of patient fall. he was on his recliner, then was found on the floor on his knees, between the recliner and the bed. patient initially was hypoxic and hypotensive, but quickly improved with supplemental oxygen at 2 LPM and oxygen sat improved to >98%, and BP manually 94/56 I was able to have a conversation with the patient , initially he thought he was home, but then quickly realized he is at [facility] and had recent surgery . he denies any headache or head injury , no changes in vision from baseline, denies focal neuro deficits in his UE bilaterally . but he is reporting some numbness in bilateral feet. he is able to move his feet , but could not raise his legs, seems to have poor effort from his end. this is not known if new or old . pupiles are small bilaterally due to being on narcotics, which he is getting frequent dosing. no need for narcan at this time . I discussed my findings with RN , she would notify surgery team regarding his lower extremity numbness and weakess, and the fall . no Brain CT at this time, but continue with neuro checks , if any changes then would consider Brain CT. vitals improving , no IVF ordered due to systolic CHF with LVEF 25%
[2022-03-20] MEDS: HYDROcodone/APAP 10-325MG 1 EACH TAB PO SCH ×5 (05:32→23:28)
[2022-03-20] MEDS: ACETAMINOPHEN TAB 325 MG TAB PO SCH (05:33)
[2022-03-20 06:25] LABS: Glucose,Whole Blood 104 mg/dL (70-110)
[2022-03-20] MEDS: INSULIN ASPART (NovoLOG) 100 UNIT/ML VIAL SQ SCH ×4 (06:42→21:25)
[2022-03-20] MEDS: LACTATED RINGERS 1,000 ML IV SCH (06:42)
[2022-03-20 06:47] LABS: Ferritin 67.5 ng/mL (22.0-322.0)
[2022-03-20] MEDS: GABAPENTIN 300 MG CAP PO SCH ×2 (09:06→21:28)
[2022-03-20] MEDS: METOPROLOL TARTRATE 50 MG TAB PO SCH ×2 (09:06→21:28)
[2022-03-20] MEDS: CYCLOBENZAPRINE 5 MG TAB PO SCH ×3 (09:06→21:28)
[2022-03-20] MEDS: FUROSEMIDE 40 MG TAB PO SCH (09:06)
[2022-03-20] MEDS: SODIUM BICARBONATE TAB 650 MG TAB PO SCH ×3 (09:06→21:28)
[2022-03-20] MEDS: allopurinoL 100 MG TAB PO SCH (09:07)
[2022-03-20] MEDS: DIFLUPREDNATE RIGHT EYE SCH ×4 (09:08→21:28)
[2022-03-20 09:42] LABS: HCT 27.6 % (39.6-50.0); MCH 26.2 pg (27.0-32.0); MCV 90.5 fL (80.0-97.0); Mean Platelet Volume 10.5 fL (9.5-12.2); NRBC Per 100 WBC 1.6 /100 WBCS (0.0-0.0); Platelet Count 204 X 10*3/uL (140-440); RBC 3.05 X 10*6/uL (4.40-5.60); RDW 17.5 % (11.5-14.5); WBC 14.72 X 10*3/uL (4.50-10.00)
[2022-03-20 09:51] LABS: % Iron Saturation 4.24 (15.00-50.00)
[2022-03-20 10:01] LABS: African American GFR (CKD) 21.1 (60.0-200.0); Anion Gap 14.8 mmol/L (10.00-18.00); BUN/Creat Ratio 19.16 Ratio (12.00-20.00); Blood Urea Nitrogen 59.2 mg/dL (9.0-27.0); Calcium 9.1 mg/dL (8.7-10.3); Magnesium 2.5 mg/dL (1.5-2.4); Non-African American GFR(CKD) 18.2 (60.0-200.0); Potassium 5.2 mmol/L (3.5-5.5)
--- NOTE | 2022-03-20 10:21 | P.PN ---
Subjective Progress Note Date: 03/20/22 Principal diagnosis: 1. Cervical Myelopathy 2. Cervical spondylosis 3. UE and LE weakness 4. Mechanical neck pain Patient was seen at bedside this morning sitting up in chair with legs elevated. Hard cervical collar is in place at this time as well as MING drain on posterior cervical spine. Night nurse mentioned that patient had an unwitnessed fall where he was found on his knees next to bed/chair. Patient denies losing consciousness/hitting his head. Patient does not recall what led to the fall. Medicine did see patient earlier this morning and recommended q2h neuro checks. Patient says he is still having neck pain currently. Patient denies any new pain since a fall early this morning. Patient also mentions some weakness in the bilateral upper extremities that he has had since surgery. Patient denies chest pain, fever, shortness breath, nausea, vomiting, change in vision, loss of bowel/bladder control. Objective - Vital Signs Vital signs: Vital Signs Temp 97.9 F 03/20/22 06:59 Pulse 66 03/20/22 06:59 Resp 18 03/20/22 06:59 BP 166/80 03/20/22 06:59 Pulse Ox 97 03/20/22 07:14 FiO2 Intake & Output 03/19/22 03/20/22 03/20/22 18:59 06:59 18:59 Output Total 240 Balance -240 Output: Drainage 115 Posterior Neck 115 Urine 25 Post Void Residual 100 Other: Voiding Method Toilet Toilet Urinal Urinal # Voids 1 - Exam Negative for any open fractures, significant erythema/ecchymosis/ulcers. Patient does present with some swelling in the upper extremities especially in the bilateral hands. Hard cervical collar is in place and time. Cervical dressing is in place over the posterior cervical spine. MING drain is in place as well. 115 cc output charted at shift change this morning in drain. Sensation is equal, symmetric, bilaterally intact. Patient does have some tenderness to palpation over the posterior cervical spine. Nontender to palpation throughout rest of exam. Patient does have limited range of motion bilateral upper extremities on exam in elbow flexion extension and shoulder for elevation, abduction, external/internal rotation. Patient is range of motion bilateral lower extremities on exam. Motor exam - 4/5 in all major motor groups in bilateral upper extremity. 5/5 in all major motor bilateral lower extremities. Neurovascular status intact bilaterally. Radial pulses intact bilaterally. Cap refill under 3 seconds in digits of upper extremities. Negative Homans bilaterally. - Labs CBC & Chem 7: 03/20/22 05:41 03/20/22 05:41 Labs: Abnormal Lab Results - Last 24 Hours (Table) 03/19/22 03/19/22 03/19/22 Range/Units 11:34 16:52 21:24 POC Glucose (mg/dL) 155 H 155 H 143 H (70-110) mg/dL 03/20/22 Range/Units 03:21 POC Glucose (mg/dL) 146 H (70-110) mg/dL Assessment and Plan Assessment: 1. Cervical Myelopathy 2. Cervical spondylosis 3. UE and LE weakness 4. MEchanical neck pain Postoperative day #2 status post C2-T2 posterolateral stabilized fusion Plan: 1. Cervical Myelopathy; Cervical spondylosis; UE and LE weakness; mchanical neck pain - C2 to T2 posterior lateral stabilization performed 03/18/2022. Patient at bedside this morning up in chair. Patient did have an unwitnessed fall earlier this morning. Medicine following. q2h neuro checks. CT brain if patient mental status worsens. 115 cc output in MING drain overnight. We will maintain drain and dressing for now. Plan for removal of drain and change dressing tmrw. Plan for discharge to [facility] tmrw. 2. Appreciate medical management 3. Pain management 4. DVT prophylaxis 5. GI prophylaxis 6. PT/OT - weightbearing as tolerated with walker and assistance; hard c-collar on at all times. 7. Encourage incentive spirometer use 8. Discharge planning - plan for discharge to rehab tomorrow, [facility]. Time with Patient: Less than 30
[2022-03-20 11:14] LABS: Glucose,Whole Blood 188 mg/dL (70-110)
[2022-03-20] MEDS ORDERED: SODIUM BICARB 8.4% 50 ML SYR (1 MEQ/ML) IV STA (11:34)
--- NOTE | 2022-03-20 11:35 | P.PN ---
Subjective Patient is seen in follow-up for acute kidney injury on chronic kidney disease. Renal function worse. Creatinine 3.1 today. Blood pressure noted to be as low as 74/48. Fell earlier this morning. Most recent reading 166/80. Does not have a Lopez catheter. Has been voiding. Oral intake fair. No vomiting or diarrhea. Vital signs are stable. General: Awake. Sitting up in chair. HEENT: Head exam is unremarkable. LUNGS: Breath sounds decreased. HEART: Rate and Rhythm are regular. ABDOMEN: Soft, obese. EXTREMITITES: Trace edema. Objective - Vital Signs Vital signs: Vital Signs Temp 97.9 F 03/20/22 06:59 Pulse 66 03/20/22 06:59 Resp 18 03/20/22 09:32 BP 166/80 03/20/22 06:59 Pulse Ox 97 03/20/22 07:14 FiO2 Intake & Output 03/19/22 03/20/22 03/20/22 18:59 06:59 18:59 Output Total 240 255 Balance -240 -255 Output: Drainage 115 230 Posterior Neck 115 230 Urine 25 25 Post Void Residual 100 Other: Voiding Method Toilet Toilet Toilet Urinal Urinal Urinal # Voids 1 1 - Labs CBC & Chem 7: 03/20/22 05:41 03/20/22 05:41 Labs: Abnormal Lab Results - Last 24 Hours (Table) 03/19/22 03/19/22 03/19/22 Range/Units 11:34 16:24 16:52 WBC (4.50-10.00) X 10*3/uL RBC (4.40-5.60) X 10*6/uL Hgb (13.0-17.0) g/dL Hct (39.6-50.0) % MCH (27.0-32.0) pg MCHC (32.0-37.0) g/dL RDW (11.5-14.5) % Absolute Nucleated RBC (0.00-0.00) X 10*3/uL NRBC/100 WBC Diff (0.0-0.0) /100 WBCS Carbon Dioxide (20.0-27.5) mmol/L BUN (9.0-27.0) mg/dL Creatinine (0.6-1.5) mg/dL Est GFR (CKD-EPI)AfAm (60.0-200.0) Est GFR (CKD-EPI)NonAf (60.0-200.0) POC Glucose (mg/dL) 155 H 155 H (70-110) mg/dL Magnesium (1.5-2.4) mg/dL Iron 15 L (65-175) ug/dL % Saturation 4.24 L (15.00-50.00) 03/19/22 03/20/22 03/20/22 Range/Units 21:24 03:21 05:41 WBC 14.72 H (4.50-10.00) X 10*3/uL RBC 3.05 L (4.40-5.60) X 10*6/uL Hgb 8.0 L (13.0-17.0) g/dL Hct 27.6 L (39.6-50.0) % MCH 26.2 L (27.0-32.0) pg MCHC 29.0 L (32.0-37.0) g/dL RDW 17.5 H (11.5-14.5) % Absolute Nucleated RBC 0.24 H (0.00-0.00) X 10*3/uL NRBC/100 WBC Diff 1.6 H (0.0-0.0) /100 WBCS Carbon Dioxide (20.0-27.5) mmol/L BUN (9.0-27.0) mg/dL Creatinine (0.6-1.5) mg/dL Est GFR (CKD-EPI)AfAm (60.0-200.0) Est GFR (CKD-EPI)NonAf (60.0-200.0) POC Glucose (mg/dL) 143 H 146 H (70-110) mg/dL Magnesium (1.5-2.4) mg/dL Iron (65-175) ug/dL % Saturation (15.00-50.00) 03/20/22 03/20/22 Range/Units 05:41 11:12 WBC (4.50-10.00) X 10*3/uL RBC (4.40-5.60) X 10*6/uL Hgb (13.0-17.0) g/dL Hct (39.6-50.0) % MCH (27.0-32.0) pg MCHC (32.0-37.0) g/dL RDW (11.5-14.5) % Absolute Nucleated RBC (0.00-0.00) X 10*3/uL NRBC/100 WBC Diff (0.0-0.0) /100 WBCS Carbon Dioxide 19.0 L (20.0-27.5) mmol/L BUN 59.2 H (9.0-27.0) mg/dL Creatinine 3.1 H (0.6-1.5) mg/dL Est GFR (CKD-EPI)AfAm 21.1 L (60.0-200.0) Est GFR (CKD-EPI)NonAf 18.2 L (60.0-200.0) POC Glucose (mg/dL) 188 H (70-110) mg/dL Magnesium 2.5 H (1.5-2.4) mg/dL Iron (65-175) ug/dL % Saturation (15.00-50.00) Assessment and Plan Plan: Assessment: 1. Acute kidney injury mostly prerenal with concern for urinary retention. Creatinine 3.1 today. 2. Chronic kidney disease stage IV with baseline creatinine 2-2.2 secondary to diabetic kidney disease and nephrosclerosis. 3. Hyperkalemia secondary to acute kidney injury, acidosis and further worsened with the use of spironolactone and losartan. Improved. 4. Metabolic acidosis secondary to acute kidney injury and IV fluids. On oral bicarbonate. Better. 5. Lower extremity edema. 6. Chronic kidney disease mineral bone disease maintained on calcitriol. 7. Anemia of chronic kidney disease. Iron deficiency noted. 8. Chronic systolic CHF with ejection fraction of 20-25%. Plan: Hold Lasix. Continue to monitor bladder scans to make sure no urinary retention. Continue to hold losartan and spironolactone. Urology consulted for difficult Lopez catheter placement. Low potassium diet. Add IV iron. Continue to monitor renal function and urine output.
[2022-03-20] MEDS: SODIUM FERRIC GLUCONAT-SUCROSE 125 MG in SODIUM CHLORIDE 0.9% 100 ML IVPB SCH (14:35)
--- NOTE | 2022-03-20 14:45 | P.PN ---
Subjective Progress Note Date: 03/20/22 (delayed charting seen at 0940) Patient is a 81-year-old male with known coronary artery disease, systolic cardiomyopathy with ejection fraction 25%, prostate cancer, diabetes, congestive heart failure, hypertension, dyslipidemia, and multiple other comorbid conditions who presented for elective C2 to T2 posterior lateral stabilization with fusion. Patient was pre-risk stratified by nephrology, cardiology, pulmonary, and primary care. In the PACU patient developed hypertension and issues with pain control. He was given multiple doses of Dilaudid and hydralazine. On 03/19/22 his K+ was slightly elevated and his ARB and aldactone were held. On 03/20/22 he had a fall and was found on his knees in front of the chair. His Cr elevated on 03/20/22 and his lasix was held. Patient seen and examined at bedside with . He is slightly more alert today. He continues to complain of pain in his bilateral shoulder blades. No chest pain or shortness of breath. No nausea or vomiting. General: nontoxic, no distress, appears at stated age Derm: warm, dry Head: atraumatic, normocephalic, symmetric, cervical collar in place Eyes: EOMI, no lid lag, anicteric sclera Mouth: no lip lesion, mucus membranes moist Cardiovascular: S1S2 reg, no murmur, positive posterior tibial pulse bilateral, Lungs: CTA bilateral, no rhonchi, no rales , no accessory muscle use Abdominal: soft, nontender to palpation, no guarding, no appreciable organomegaly Ext: no gross muscle atrophy, no edema, no contractures Neuro: CN II-XI grossly intact, no focal neuro deficits Psych: Lethargic, oriented to self and situation, appropriate affect Assessment/Plan: 81 yo M s/p C2 to T2 posterior lateral stabilization with fusion. Fall and pain medication changes discussed with Dr. Ardon. Acute delirium, due to pain medications - changes schedule norco to q6 hours and neurontin from TID to BID. - supportive environment ETTA on Chronic kidney disease stage 3/4 - nephro recs: stop lasix - Continue to hold ARB and aldactone - avoif fluids due to low EF - baseline Cr 2.1-2.5 - BMP in AM Anemia, likely due to chronic renal disease- stable - baseline appears to be 9-10 - CBC in AM Diabetes mellitus type 2 with neuropathy - last A1C was 5.11 september 2021, not chronically on medications - continue SSI, monitor BS Systolic congestive heart failure with ejection fraction 25% with AICD in place - monitor fluid stats closely - daily weights -Consult cardiology if patient becomes fluid overloaded -Continue Lasix, beta mandie paroxysmal A fib - eliquis on hold, resume when okay with orthospine - telemetry Accelerate HTN, resolved Hyperkalemia, resolved Chronic: Dyslipidemia History of pulmonary embolism Myocardial infarction, coronary artery disease Interstitial Lung Disease/restrictive lung disease Osteoarthritis Prostate cancer Chronic back pain Glaucoma Diverticulosis Gout Thank you for allowing us to participate in the care of this pleasant patient. Do not hesitate to contact us with questions. Someone can be reached from the [facility] hospitalist group all hours of the day at [phone] or via [employer]. Active Medications Generic Name Dose Route Start Last Admin Trade Name Freq PRN Reason Stop Dose Admin Hydrocodone Bitart/Acetaminophen 1 each 03/18/22 11:20 Hydrocodone/Apap 5-325mg 1 Each Tab PO Q6HR PRN Pain Scale 4 - 6 Hydrocodone Bitart/Acetaminophen 1 each 03/20/22 12:00 Hydrocodone/Apap 10-325mg 1 Each Tab PO Q6HR ANGELIQUE Allopurinol 200 mg 03/19/22 09:00 03/20/22 09:07 Allopurinol 100 Mg Tab PO 200 mg DAILY ANGELIQUE Administration Atorvastatin Calcium 40 mg 03/18/22 21:00 03/19/22 20:38 Atorvastatin 40 Mg Tab PO 40 mg HS ANGELIQUE Administration Calcitriol 0.25 mcg 03/22/22 09:00 Calcitriol 0.25 Mcg Cap PO Q7D ANGELIQUE Cyclobenzaprine HCl 5 mg 03/19/22 09:00 03/20/22 09:06 Cyclobenzaprine 5 Mg Tab PO 5 mg TID ANGELIQUE Administration Dextrose/Water 25 ml 03/18/22 17:34 Dextrose 50% Syringe 50 Ml IVP PER PROTOCOL PRN Hypoglycemia Protocol Dextrose/Water 50 ml 03/18/22 17:34 Dextrose 50% Syringe 50 Ml IVP PER PROTOCOL PRN Hypoglycemia Protocol Gabapentin 300 mg 03/20/22 21:00 Gabapentin 300 Mg Cap PO BID ANGELIQUE Hydromorphone HCl 0.5 mg 03/18/22 11:20 03/18/22 13:21 Hydromorphone 0.5 Mg/0.5 Ml Syringe IVP 0.5 mg Q3HR PRN Administration Pain Scale 4 - 6 Hydromorphone HCl 1 mg 03/18/22 11:20 03/20/22 01:28 Hydromorphone 1 Mg/Ml 1 Ml Syringe IVP 1 mg Q3HR PRN Administration Pain Scale of 7 - 10 Lactated Ringer's 1,000 mls @ 20 mls/hr 03/18/22 06:16 03/20/22 06:42 Lactated Ringers IV Not Given .Q24H [facility] Ferric Sodium Gluconate 125 mg 110 mls @ 100 mls/hr 03/20/22 11:45 / Sodium Chloride IVPB 03/23/22 11:46 DAILY [facility] Insulin Aspart 0 unit 03/18/22 21:00 03/20/22 06:42 Insulin Aspart (Novolog) 100 Unit/Ml Vial SQ Not Given ACHS [facility] Protocol Latanoprost 1 drops 03/18/22 21:00 03/19/22 20:39 Latanoprost 0.005% Ophth Drops 2.5 Ml Btl LEFT EYE 1 drops HS [facility] Administration Magnesium Hydroxide 2,400 mg 03/18/22 11:20 Magnesium Hydroxide 2,400 Mg/10 Ml Cup PO DAILY PRN Constipation Metoprolol Tartrate 50 mg 03/18/22 21:00 03/20/22 09:06 Metoprolol Tartrate 50 Mg Tab PO 50 mg BID [facility] Administration Difluprednate [ 1 drop 03/18/22 19:00 03/20/22 09:08 Difluprednate Ophth RIGHT EYE 1 drop Soln] 5 Ml Ml QID [facility] Administration Senna/Docusate Sodium 2 each 03/18/22 11:20 Sennosides-Docusate Sodium 1 Each Tab PO DAILY PRN Constipation Sodium Bicarbonate 650 mg 03/19/22 11:15 03/20/22 09:06 Sodium Bicarbonate Tab 650 Mg Tab PO 650 mg TID [facility] Administration Objective - Vital Signs Vital signs: Vital Signs Temp 97.9 F 03/20/22 06:59 Pulse 66 03/20/22 06:59 Resp 18 03/20/22 09:32 BP 166/80 03/20/22 06:59 Pulse Ox 97 03/20/22 07:14 FiO2 Intake & Output 03/19/22 03/20/22 03/20/22 18:59 06:59 18:59 Output Total 240 255 Balance -240 -255 Output: Drainage 115 230 Posterior Neck 115 230 Urine 25 25 Post Void Residual 100 Other: Voiding Method Toilet Toilet Toilet Urinal Urinal Urinal # Voids 1 1 - Labs CBC & Chem 7: 03/20/22 05:41 03/20/22 05:41 Labs: Abnormal Lab Results - Last 24 Hours (Table) 03/19/22 03/19/22 03/19/22 Range/Units 16:24 16:52 21:24 WBC (4.50-10.00) X 10*3/uL RBC (4.40-5.60) X 10*6/uL Hgb (13.0-17.0) g/dL Hct (39.6-50.0) % MCH (27.0-32.0) pg MCHC (32.0-37.0) g/dL RDW (11.5-14.5) % Absolute Nucleated RBC (0.00-0.00) X 10*3/uL NRBC/100 WBC Diff (0.0-0.0) /100 WBCS Carbon Dioxide (20.0-27.5) mmol/L BUN (9.0-27.0) mg/dL Creatinine (0.6-1.5) mg/dL Est GFR (CKD-EPI)AfAm (60.0-200.0) Est GFR (CKD-EPI)NonAf (60.0-200.0) POC Glucose (mg/dL) 155 H 143 H (70-110) mg/dL Magnesium (1.5-2.4) mg/dL Iron 15 L (65-175) ug/dL % Saturation 4.24 L (15.00-50.00) 03/20/22 03/20/22 03/20/22 Range/Units 03:21 05:41 05:41 WBC 14.72 H (4.50-10.00) X 10*3/uL RBC 3.05 L (4.40-5.60) X 10*6/uL Hgb 8.0 L (13.0-17.0) g/dL Hct 27.6 L (39.6-50.0) % MCH 26.2 L (27.0-32.0) pg MCHC 29.0 L (32.0-37.0) g/dL RDW 17.5 H (11.5-14.5) % Absolute Nucleated RBC 0.24 H (0.00-0.00) X 10*3/uL NRBC/100 WBC Diff 1.6 H (0.0-0.0) /100 WBCS Carbon Dioxide 19.0 L (20.0-27.5) mmol/L BUN 59.2 H (9.0-27.0) mg/dL Creatinine 3.1 H (0.6-1.5) mg/dL Est GFR (CKD-EPI)AfAm 21.1 L (60.0-200.0) Est GFR (CKD-EPI)NonAf 18.2 L (60.0-200.0) POC Glucose (mg/dL) 146 H (70-110) mg/dL Magnesium 2.5 H (1.5-2.4) mg/dL Iron (65-175) ug/dL % Saturation (15.00-50.00) 03/20/22 Range/Units 11:12 WBC (4.50-10.00) X 10*3/uL RBC (4.40-5.60) X 10*6/uL Hgb (13.0-17.0) g/dL Hct (39.6-50.0) % MCH (27.0-32.0) pg MCHC (32.0-37.0) g/dL RDW (11.5-14.5) % Absolute Nucleated RBC (0.00-0.00) X 10*3/uL NRBC/100 WBC Diff (0.0-0.0) /100 WBCS Carbon Dioxide (20.0-27.5) mmol/L BUN (9.0-27.0) mg/dL Creatinine (0.6-1.5) mg/dL Est GFR (CKD-EPI)AfAm (60.0-200.0) Est GFR (CKD-EPI)NonAf (60.0-200.0) POC Glucose (mg/dL) 188 H (70-110) mg/dL Magnesium (1.5-2.4) mg/dL Iron (65-175) ug/dL % Saturation (15.00-50.00)
[2022-03-20 16:09] LABS: Glucose,Whole Blood 127 mg/dL (70-110)
[2022-03-20 20:50] LABS: Glucose,Whole Blood 140 mg/dL (70-110)
[2022-03-20] MEDS: LATANOPROST 0.005% OPHTH DROPS 2.5 ML BTL LEFT EYE SCH (21:28)
[2022-03-20] MEDS: ATORVASTATIN 40 MG TAB PO SCH (21:28)
[2022-03-21 06:33] LABS: Glucose,Whole Blood 113 mg/dL (70-110)
[2022-03-21] MEDS: INSULIN ASPART (NovoLOG) 100 UNIT/ML VIAL SQ SCH ×4 (06:51→23:08)
[2022-03-21] MEDS: LACTATED RINGERS 1,000 ML IV SCH (06:52)
[2022-03-21] MEDS: HYDROcodone/APAP 10-325MG 1 EACH TAB PO SCH ×3 (06:56→17:34)
[2022-03-21] MEDS: SODIUM FERRIC GLUCONAT-SUCROSE 125 MG in SODIUM CHLORIDE 0.9% 100 ML IVPB SCH (08:11)
[2022-03-21] MEDS: CYCLOBENZAPRINE 5 MG TAB PO SCH (08:11)
[2022-03-21] MEDS: GABAPENTIN 300 MG CAP PO SCH ×2 (08:12→23:09)
[2022-03-21] MEDS: SODIUM BICARBONATE TAB 650 MG TAB PO SCH ×3 (08:12→23:09)
[2022-03-21] MEDS: allopurinoL 100 MG TAB PO SCH (08:12)
[2022-03-21] MEDS: METOPROLOL TARTRATE 50 MG TAB PO SCH ×2 (08:12→23:09)
--- NOTE | 2022-03-21 09:07 | CDI ---
Documentation Clarification Form Date: 03/21/2022 8:42:44 AM From: Valentina Saldivar CCS, CCDS Admit Date: 03/18/2022 5:40:00 AM Patient Name: Ben Vega Visit Number: [id number] Discharge Date: ATTENTION: The Clinical Documentation Specialists (CDI) and [facility] Coding Staff appreciate your assistance in clarifying documentation. Please respond to the clarification below the line at the bottom and electronically sign. The CDI & [facility] Coding staff will review the response and follow-up if needed. Please note: Queries are made part of the Legal Health Record. If you have any questions, please contact the author of this message via ITS. Dr. Aicha Levin: Acute delirium, due to pain medications is documented in the 03/18 Medical Management Consult and in subsequent Progress Notes. Additional clarification regarding the patient's documented delirium is requested. History/Risk Factors per the 03/18 Medical Management Consult: CAD, Systolic Cardiomyopathy w/EF 25%, w/AICD, Systolic CHF, Hypertension, PE, Hyperlipidemia, Prostate Cancer, DM II with Neuropathy, CKD Stage IV (per Nephrology), Anemia due to CKD, [place], Interstitial Lung Disease/Restrictive Lung Disease, Osteoarthritis, Chronic Back Pain, Glaucoma Right Eye, Diverticulosis, Gout, Former smoker. Clinical Indicators: Presented 03/18 for Elective Spinal Surgery: C2-T2 Posteriolateral Stabilized Fusion. Patient had some delirium postoperatively, pain medication changed to [place] q6H, Neurontin changed from TID to BID. Per the 03/20 Event Note: patient had an unwitnessed fall from recliner to the floor onto his knees, initially thought he was home but recovered quickly. The patient also was hypertensive on 03/18 @ 06:41: 179/79. 03/18 @ 11:23: 173/63, 205/92, 220/93, , received IV Apresoline [address] Brain unless the patient's mental status worsens per Ortho/Spine Surgeon 03/20 Progress Note. Treatment: Medication changes as above. 03/18: IV Dilaudid 0.5 mg q3H/prn for pain 4-6/10, 1 mg q3H/prn for pain 7-10/10; po [place] 10 q6H/prn. Received IV Dilaudid 0.5 mg x2, IV Fentanyl 50 mcg x4, po Valium 2 mg x1, Neurontin 300 mg x2. Please clarify the following: [ ] Hypertensive Encephalopathy [ ] Metabolic Encephalopathy [ ] Toxic Encephalopathy [ ] Other, please specify: [ ] Unable to determine (Template Last Revised: May 2020) Toxic metabolic encephalopathy MTDD
[2022-03-21 09:28] LABS: Anisocytosis Slight; HCT 27.6 % (39.0-53.0); HGB 8.1 gm/dL (13.0-17.5); Hypochromasia Marked; MCH 26.1 pg (25.0-35.0); MCHC 29.5 g/dL (31.0-37.0); MCV 88.6 fL (80.0-100.0); Mean Platelet Volume 8.3; Platelet Count 180 k/uL (150-450); RBC 3.12 m/uL (4.30-5.90); RDW 17.4 % (11.5-15.5); WBC 10.6 k/uL (3.8-10.6)
[2022-03-21] MEDS ORDERED: CYCLOBENZAPRINE 5 MG TAB PO PRN (09:36)
[2022-03-21 11:05] LABS: Glucose,Whole Blood 176 mg/dL (70-110)
[2022-03-21 11:05] LABS: Anion Gap 10.7 mmol/L (10.00-18.00); BUN/Creat Ratio 22.22 Ratio (12.00-20.00); Carbon Dioxide 21.7 mmol/L (20.0-27.5); Magnesium 2.3 mg/dL (1.5-2.4); Non-African American GFR(CKD) 23.3 (60.0-200.0); Potassium 4.3 mmol/L (3.5-5.5)
--- NOTE | 2022-03-21 11:40 | P.PN ---
Subjective Patient is seen in follow-up for acute kidney injury on chronic kidney disease. Renal function better. Diuretics held. Blood pressure 129/78 this morning. He has been waiting. Sitting up in chair. On nasal cannula. Vital signs are stable. General: Awake. Sitting up in chair. HEENT: Head exam is unremarkable. On nasal cannula. LUNGS: Breath sounds decreased. HEART: Rate and Rhythm are regular. ABDOMEN: Soft, obese. EXTREMITITES: Trace edema. Objective - Vital Signs Vital signs: Vital Signs Temp 97.8 F 03/21/22 07:36 Pulse 64 03/21/22 07:40 Resp 18 03/21/22 07:40 BP 129/78 03/21/22 07:36 Pulse Ox 94 L 03/21/22 07:36 FiO2 Intake & Output 03/20/22 03/21/22 03/21/22 18:59 06:59 18:59 Intake Total 100 Output Total 295 105 Balance -195 -105 Weight 104.7 kg Intake: Oral 100 Output: Drainage 270 30 Posterior Neck 270 30 Urine 25 75 Other: Voiding Method Toilet Toilet Toilet Urinal Urinal Urinal # Voids 1 1 - Labs CBC & Chem 7: 03/21/22 07:17 03/21/22 07:17 Labs: Abnormal Lab Results - Last 24 Hours (Table) 03/20/22 03/20/22 03/21/22 Range/Units 16:08 20:47 06:31 RBC (4.30-5.90) m/uL Hgb (13.0-17.5) gm/dL Hct (39.0-53.0) % MCHC (31.0-37.0) g/dL RDW (11.5-15.5) % BUN (9.0-27.0) mg/dL Creatinine (0.6-1.5) mg/dL Est GFR (CKD-EPI)AfAm (60.0-200.0) Est GFR (CKD-EPI)NonAf (60.0-200.0) BUN/Creatinine Ratio (12.00-20.00) Ratio POC Glucose (mg/dL) 127 H 140 H 113 H (70-110) mg/dL 03/21/22 03/21/22 03/21/22 Range/Units 07:17 07:17 11:04 RBC 3.12 L (4.30-5.90) m/uL Hgb 8.1 L (13.0-17.5) gm/dL Hct 27.6 L (39.0-53.0) % MCHC 29.5 L (31.0-37.0) g/dL RDW 17.4 H (11.5-15.5) % BUN 56.0 H (9.0-27.0) mg/dL Creatinine 2.5 H (0.6-1.5) mg/dL Est GFR (CKD-EPI)AfAm 27.0 L (60.0-200.0) Est GFR (CKD-EPI)NonAf 23.3 L (60.0-200.0) BUN/Creatinine Ratio 22.22 H (12.00-20.00) Ratio POC Glucose (mg/dL) 176 H (70-110) mg/dL Assessment and Plan Plan: Assessment: 1. Acute kidney injury mostly prerenal from hypotension and diuresis with concern for urinary retention. Creatinine peaked at 3.1 this admission and is 2.5 today. 2. Chronic kidney disease stage IV with baseline creatinine 2-2.2 secondary to diabetic kidney disease and nephrosclerosis. 3. Hyperkalemia secondary to acute kidney injury, acidosis and further worsened with the use of spironolactone and losartan. Improved. 4. Metabolic acidosis secondary to acute kidney injury and IV fluids. On oral bicarbonate. Better. 5. Lower extremity edema. 6. Chronic kidney disease mineral bone disease maintained on calcitriol. 7. Anemia of chronic kidney disease. Iron deficiency noted. 8. Chronic systolic CHF with ejection fraction of 20-25%. Plan: Continue to hold diuretics. Continue to monitor bladder scans to make sure no urinary retention. Continue to hold losartan and spironolactone. Low potassium diet. Maintain IV iron. Continue to monitor renal function and urine output.
[2022-03-21] MEDS: DIFLUPREDNATE RIGHT EYE SCH ×4 (12:00→23:10)
--- NOTE | 2022-03-21 12:31 | P.PN ---
Subjective Progress Note Date: 03/21/22 Principal diagnosis: 1. Cervical Myelopathy 2. Cervical spondylosis 3. UE and LE weakness 4. Mechanical neck pain Patient was seen at bedside this morning sitting up in chair with legs elevated. Hard cervical collar is in place at this time as well as MING drain on posterior cervical spine. Patient says he is still having neck pain currently. Patient also mentions some weakness in the bilateral upper extremities that he has had since surgery. Patient denies chest pain, fever, shortness breath, nausea, vomiting, change in vision, loss of bowel/bladder control. Objective - Vital Signs Vital signs: Vital Signs Temp 97.8 F 03/21/22 07:36 Pulse 70 03/21/22 07:36 Resp 18 03/21/22 07:36 BP 129/78 03/21/22 07:36 Pulse Ox 94 L 03/21/22 07:36 FiO2 Intake & Output 03/20/22 03/21/22 03/21/22 18:59 06:59 18:59 Intake Total 100 Output Total 295 30 Balance -195 -30 Weight 104.7 kg Intake: Oral 100 Output: Drainage 270 30 Posterior Neck 270 30 Urine 25 Other: Voiding Method Toilet Toilet Urinal Urinal # Voids 1 - Exam Negative for any open fractures, significant erythema/ecchymosis/ulcers. Patient does present with some swelling in the upper extremities especially in the bilateral hands. Hard cervical collar is in place and time. Cervical dressing is in place over the posterior cervical spine. MING drain is in place as well. 40 cc output overnight. Drain removed at bedside. Dressing changed. Incision appears to be healing well at this time. Negative for any active drainage. Chana well aligned and in good place. Sensation is equal, symmetric, bilaterally intact. Patient does have some tenderness to palpation over the posterior cervical spine. Nontender to palpation throughout rest of exam. Patient does have limited range of motion bilateral upper extremities on exam in elbow flexion extension and shoulder for elevation, abduction, external/ internal rotation. Patient is range of motion bilateral lower extremities on exam. Motor exam - 4/5 in all major motor groups in bilateral upper extremity. 5/5 in all major motor bilateral lower extremities. Neurovascular status intact bilaterally. Radial pulses intact bilaterally. Cap refill under 3 seconds in digits of upper extremities. Negative Homans bilaterally. - Labs CBC & Chem 7: 03/21/22 07:17 01/12/23 07:17 Labs: Abnormal Lab Results - Last 24 Hours (Table) 03/19/22 03/20/22 03/20/22 Range/Units 16:24 05:41 05:41 WBC 14.72 H (4.50-10.00) X 10*3/uL RBC 3.05 L (4.40-5.60) X 10*6/uL Hgb 8.0 L (13.0-17.0) g/dL Hct 27.6 L (39.6-50.0) % MCH 26.2 L (27.0-32.0) pg MCHC 29.0 L (32.0-37.0) g/dL RDW 17.5 H (11.5-14.5) % Absolute Nucleated RBC 0.24 H (0.00-0.00) X 10*3/uL NRBC/100 WBC Diff 1.6 H (0.0-0.0) /100 WBCS Carbon Dioxide 19.0 L (20.0-27.5) mmol/L BUN 59.2 H (9.0-27.0) mg/dL Creatinine 3.1 H (0.6-1.5) mg/dL Est GFR (CKD-EPI)AfAm 21.1 L (60.0-200.0) Est GFR (CKD-EPI)NonAf 18.2 L (60.0-200.0) POC Glucose (mg/dL) (70-110) mg/dL Magnesium 2.5 H (1.5-2.4) mg/dL Iron 15 L (65-175) ug/dL % Saturation 4.24 L (15.00-50.00) 03/20/22 03/20/22 03/20/22 Range/Units 11:12 16:08 20:47 WBC (4.50-10.00) X 10*3/uL RBC (4.40-5.60) X 10*6/uL Hgb (13.0-17.0) g/dL Hct (39.6-50.0) % MCH (27.0-32.0) pg MCHC (32.0-37.0) g/dL RDW (11.5-14.5) % Absolute Nucleated RBC (0.00-0.00) X 10*3/uL NRBC/100 WBC Diff (0.0-0.0) /100 WBCS Carbon Dioxide (20.0-27.5) mmol/L BUN (9.0-27.0) mg/dL Creatinine (0.6-1.5) mg/dL Est GFR (CKD-EPI)AfAm (60.0-200.0) Est GFR (CKD-EPI)NonAf (60.0-200.0) POC Glucose (mg/dL) 188 H 127 H 140 H (70-110) mg/dL Magnesium (1.5-2.4) mg/dL Iron (65-175) ug/dL % Saturation (15.00-50.00) 03/21/22 Range/Units 06:31 WBC (4.50-10.00) X 10*3/uL RBC (4.40-5.60) X 10*6/uL Hgb (13.0-17.0) g/dL Hct (39.6-50.0) % MCH (27.0-32.0) pg MCHC (32.0-37.0) g/dL RDW (11.5-14.5) % Absolute Nucleated RBC (0.00-0.00) X 10*3/uL NRBC/100 WBC Diff (0.0-0.0) /100 WBCS Carbon Dioxide (20.0-27.5) mmol/L BUN (9.0-27.0) mg/dL Creatinine (0.6-1.5) mg/dL Est GFR (CKD-EPI)AfAm (60.0-200.0) Est GFR (CKD-EPI)NonAf (60.0-200.0) POC Glucose (mg/dL) 113 H (70-110) mg/dL Magnesium (1.5-2.4) mg/dL Iron (65-175) ug/dL % Saturation (15.00-50.00) Assessment and Plan Assessment: 1. Cervical Myelopathy 2. Cervical spondylosis 3. UE and LE weakness 4. MEchanical neck pain Postoperative day #3 status post C2-T2 posterolateral stabilized fusion Plan: 1. Cervical Myelopathy; Cervical spondylosis; UE and LE weakness; mchanical neck pain - C2 to T2 posterior lateral stabilization performed 03/18/2022. Patient at bedside this morning up in chair. 40 cc output in MING drain overnight. We will maintain drain and dressing for now. Plan for removal of drain and change dressing tmrw. Plan for discharge to [facility] today. Follow up in office with Dr. Ardon in 2 weeks 2. Appreciate medical management 3. Pain management - [place]; Flexeril; gabapentin 4. DVT prophylaxis - mechanical 5. GI prophylaxis - senna 6. PT/OT - weightbearing as tolerated with walker and assistance; hard c-collar on at all times. 7. Encourage incentive spirometer use 8. Discharge planning - Discharge to rehab today [facility]. Time with Patient: Less than 30
--- NOTE | 2022-03-21 12:36 | P.DS ---
Providers Date of admission: 03/18/22 05:40 Expected date of discharge: 03/21/22 Attending physician: Fidencio Ardon DO Consults: 03/18/22 11:20 Consult Physician Routine Consulting Provider: Aicha Levin Consult Reason/Comments: medical management s/p C2-T2 decompr/fusion Do you want consulting provider notified?: Yes 03/18/22 11:28 Consult Physician Routine Consulting Provider: Michael Schultz Consult Reason/Comments: urology management - unable insert catheter for surgery Do you want consulting provider notified?: Yes 03/19/22 08:41 Consult Physician Routine Consulting Provider: Martin Molina Consult Reason/Comments: hyperkalemia, CKD Do you want consulting provider notified?: Yes Primary care physician: Bruce Arnold MD Hospital Course: Date of admission: 03/18/2022 Date of discharge: 03/21/2022 Admission diagnosis: 1. Cervical Myelopathy 2. Cervical spondylosis 3. UE and LE weakness 4. MEchanical neck pain Discharge diagnosis: Same Attending physician: Dr. Ardon Surgical procedures: C2-T2 posteriolateral stabilized fusion Brief history: Patient is a 81-year-old male with a history of with cervical myelopathy; cervical spinal; upper and lower extremity weakness; mechanical neck pain. At this point patient has failed conservative treatment measures and has opted to proceed with a elective C2-T2 posteriolateral stabilized fusion. Hospital course: Details of patient's surgery can be found in operative report. Patient tolerated the procedure well and was subsequently transported to ortho pedic floor. Patient's orthopeidc and medical care was provided daily. Patient had daily laboratory tests performed for evaluation of overall blood counts. Patient had daily physical therapy to include strengthening range of motion as well as education with walker ambulation. Patient was noted to have a relatively uneventful postoperative course. Patient reported satisfactory pain control with oral pain medications by postoperative day 3. Patient showed satisfactory progress with physical therapy. Patient moved steadily through the program and had no difficulty meeting the goals by postoperative day 3. Given patient's otherwise satisfactory course and having met physical therapy goals, plan is to discharge patient to rehab on postoperative day 3. Discharge condition/disposition: Patient will be discharged to rehab in stable condition. Discharge medications: Instructions are given on resumption of patient's normal daily medications per primary care recommendation, in addition patient will be prescribed [place]; tramadol,; Duricef; gabapentin; senna. Spine Discharge and Recovery Instructions Date of Surgery: 03/18/2022 Diagnosis: 1. Cervical Myelopathy 2. Cervical spondylosis 3. UE and LE weakness 4. MEchanical neck pain Procedure: C2-T2 posteriolateral stabilized fusion Medications: See medication list All medication refills should be obtained through your primary care doctor or your clinic spine surgeon. Please discuss prescription refills at your follow up appointment. Do not call the hospital for medication refills. Dressing: Leave your dressing in place for a total of 5 days post operatively. Then you may remove your dressing and leave open to air. Keep the area clean and if not able to keep area clean, then cover with sterile gauze and tape. Showering: You may shower 3 days after your procedure allowing soap and water to run over incision. Do not scrub. Do not soak. Blot dry. Follow up: Please confirm a follow up appointment with your surgeon 3 weeks post operatively. Please make an appointment to follow up with your PCP in 1-2 weeks after surgery for evaluation 3 phase, 3-week plan POST OP WEEKS 1-3 1. Lifting/carrying/pushing/pulling limited to less than 5 pounds. 2. Do not sit for longer than 15 minutes at one time. Get up and walk around. Prolonged sitting is NOT advised. If you lay down, see if you can tolerate laying down on you front (belly side) 3. Walk for periods of 15 minutes = 1 mile but no longer; do it multiple times times each day. 4. Ice your low back after activity. POST OP WEEKS 3-6 1. Lifting limited to less than 20 pounds. 2. Do not sit for longer than 30 minutes at a time. Frequently change positions. Use a sit-to stand workstation or take frequent breaks from sitting if you have returned to work. 3. Walk for 30 minutes each day. If possible, do these three or more times a day POST OP WEEKS 6+ At your 6-week appointment we will give you a physical therapy referral to focus on a core stabilization and strengthening program. You should also work on leg & buttock strengthening, hamstring & quadriceps stretching, and continue a low impact aerobic activity program such as swimming, walking, or riding a stationary bicycle. During the initial 6 weeks after your surgery, you are at the highest risk of re-injuring your spine. You should generally avoid BLTs (bending, lifting and twisting combination motions) and follow the above guidelines to reduce the chance of reinjury. You can anticipate post op appointments in our office at approximately 3 weeks and 6 weeks after your surgery. INCISION CARE: If your incision is not draining you do NOT need to cover it with a dressing. Keep your incision clean, dry and intact. In most cases, we apply skin glue, elina or sutures to the incision at the time of surgery. This will be like a crust or have the appearance of a scab and will fall off in time on its own. The stitches or elina need to be removed at 3 weeks post op appointment. You may begin to shower 3 days after surgery (this allows the glue to ward well). However, please avoid scrubbing the incision site or peeling off any of the skin glue. This will ensure optimal healing of your incision. Also, during this time avoid soaking the incision area in water - this includes swimming pools, hot tubs or baths. No ointments, lotions or oils on the incision until your surgeon allows. Leave elina, sutures or glue in place. Neurological dysfunction that comes on suddenly can also be a sign of a stroke. Below some common symptoms of a stroke are listed: B - balance difficulty such as sudden onset walking or leaning to one side - NEW E - eye problem such as sudden double vision or trouble seeing on one side - NEW F - Facial weakness or numbness on one side - NEW A - Arm or leg weakness or numbness on one side - NEW S - Slurred speech or difficulty with word finding - NEW T - Time is BRAIN! Call 911 as soon as you recognize these symptoms Diet: Consume a regular diet rich in vegetables and lean protein such as chicken or fish. You should consume in a ratio of approximately 20% fats|40% carbohydrates|40%protein. Vegetables, sweet potatoes, brown rice or quinoa are examples of good carbohydrates. Chips, white bread, cookies and sweets/sugar are examples of bad carbohydrates. Limit your bad carbs, go wild with good carbs. 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 (1) Get Active. Physical activity can help people lose weight, control high blood pressure and cholesterol, feel emotionally better, and sleep better. (2) Control Cholesterol. Avoid a diet high in saturated fat, trans fat, & cholesterol. Limit whole milk & cream, ice cream, butter, egg yolks, processed meats (like sausage and hot dogs), and fatty meats. Choose healthy foods that are low in saturated fat, trans fat and cholesterol which include: Fruits and vegetables, fiber rich grain products (like whole grain pasta and brown rice), lean meat such as chicken, fish, nuts, seeds, and legumes. (3) Eat Better. Eat small portions. Shop at the grocery with a list and do not stray from it. Tips for a healthy diet include: Limit sodium intake to less than 1500mg daily, avoid prepackaged, processed, and fast foods, choose a diet rich in fruits, vegetables, and whole grain, high fiber foods, and limit saturated & cholesterol in your diet. (4) Manage Blood Pressure. If you have high blood pressure, you should have a cuff at home so that you can check your blood pressure regularly. Be sure you have a good cuff. An arm one is generally better than a wrist one. Bring the cuff to a doctor's appointment to validate that the measurements that your cuff are taking are accurate. Take your blood pressure twice daily when you are sitting down and relaxing. Record the numbers in a log and bring this log with you to your doctors' appointments. (5) Lose Weight if your BMI is above 25. A healthy BMI is between 19-25. To calculate Your BMI, you may use a Standard BMI Calculator on the NIH BMI website: <www.nhlbi.nih.gov/guidelines/obesity/BMI/bmicalc.htm>. Weigh oneself daily. If you are overweight, set a goal to lose weight. A pound a week loss if needed is a good target. (6) Reduce Blood Sugar. Limit foods and liquids with "added sugars." (Added sugars include sucrose, fructose, glucose, maltose, dextrose, high fructose corn syrup, corn syrup, concentrated fruit juice and honey). (7) Stop Smoking. If you smoke, quitting smoking is one of the best things that you can do for your health. Smoking increases your risk of heart attack, stroke, and peripheral vascular disease, which is a build-up of plaque in your arteries. Please discard all the cigarettes and lighters in your house. Have a plan for what you will do when you have the urge to smoke. Direct and second- hand smoke shortens your life as well as the lives of your family, friends and others around you. For your health and the health of those around you, please consider quitting! Proper Bending Body Mechanics: Maintain a wide stance with one foot slightly in front of the other. Keep your back straight. Bend utilizing the strength in your hips and knees. Do not bend at the waist. Maintain the lifted object at your waist-level close to your body. Avoid lifting weight that causes immediately pain or pain anywhere in the body afterwards. Smoking/Nicotine If there was ever one thing that you could do to increase your overall health, decrease your risk of cardiovascular problems by about 39% the second you make the choice, it is to STOP SMOKING. Your body's most instant gratification is the second you stop smoking. We have all heard the studies, read the articles but it is true, smoking is extremely bad for your overall health, and moreover it is detrimental to your bone health. Nicotine, IN ANY FORM, kills bone cells, prevents your body from healing fractures, and significantly prolongs healing after surgery. In spine surgery specifically, it increases your risk of not healing your bones to create a fusion and increases your risk of having a revision surgery due to this up to 60%. I know it is hard. I know it feels impossible. But there are ways. Take control of your life. We are here to help you through it. And when you are ready, ask us and we can direct you to help if you desire. Use the START Plan to Quit Smoking (please visit the Helpguide.org website listed below for more information): S = Set a quit date. Choose a date within the next 2 weeks, so you have enough time to prepare without losing your motivation to quit. If you mainly smoke at work, quit on the weekend, so you have a few days to adjust to the change. T = Tell family, friends, and co-workers that you plan to quit. Let your friends and family in on your plan to quit smoking and tell them you need their support and encouragement to stop. Look for a quit luca who wants to stop smoking as well. You can help each other get through the rough times. A = Anticipate and plan for the challenges you'll face while quitting. Most people who begin smoking again do so within the first 3 months. You can help yourself make it through by preparing ahead for common challenges, such as nicotine withdrawal and cigarette cravings. R = Remove cigarettes and other tobacco products from your home, car, and work. Throw away all your cigarettes (no emergency pack!), lighters, ashtrays, and matches. Wash your clothes and freshen up anything that smells like smoke. Shampoo your car, clean your drapes and carpet, and steam your furniture. T = Talk to your doctor about getting help to quit. Your doctor can prescribe medication to help with withdrawal and suggest other alternatives. If you can't see a doctor, you can get many products over the counter at your local pharmacy or grocery store, including the nicotine patch, nicotine lozenges, and nicotine gum. Resources for Quitting Smoking: <https://www.[place].gov/documents/[facility]/Quit_Tobacco_Resources_for_patients_313 480_7.pdf> Supplementation: Take recommended dosages of Vitamin D and Calcium to help fortify your bones and help them to heal. See your health maintenance packet for dosages and recommended levels. DVT/VTE prophylaxis: You will be given compression stockings from the hospital. Wear these daily for the first two weeks after surgery. You may take them off at night. You may be prescribed a medication to help thin your blood. Take this as directed. If you are not prescribed this medication, early and frequent ambulation has been shown to be the best prophylaxis to deep vein thrombosis and sequelae related to this event. Assessment: 1. Cervical Myelopathy 2. Cervical spondylosis 3. UE and LE weakness 4. MEchanical neck pain Procedures: C2-T2 posteriolateral stabilized fusion Patient Condition at Discharge: Good Plan - Discharge Summary Discharge Rx Participant: No New Discharge Prescriptions: New cefaDROXiL [Duricef] 500 mg PO Q12HR 5 Days #10 cap HYDROcodone/APAP 10-325MG [[place] 10-325] 1 tab PO Q6HR PRN 7 Days #28 tab PRN Reason: Pain Sennosides/Docusate Sodium [Senna-S 8.6-50 mg Tablet] 2 each PO DAILY PRN #30 tablet PRN Reason: Constipation traMADol HCl [Ultram] 50 mg PO Q6H PRN #21 tab PRN Reason: Pain Gabapentin 300 mg PO BID 3 Days #6 cap No Action Atorvastatin [Lipitor] 40 mg PO HS Gabapentin [Neurontin] 300 mg PO 0800,1700 Furosemide [Lasix] 40 mg PO DAILY Apixaban [Eliquis] 5 mg PO BID calcitrioL [Calcitriol] 0.25 mcg PO Q7D Alpha Lipoic Acid 600 mg PO DAILY Cholecalciferol [Vitamin D3 (25 Mcg = 1000 Iu)] 50 mcg PO DAILY Metoprolol Tartrate [Lopressor] 50 mg PO BID traMADol HCl [Ultram] 50 mg PO BID tiZANidine [Zanaflex] 2 mg PO BID Difluprednate [Difluprednate Ophth Soln] 1 drop RIGHT EYE QID Ofloxacin 0.3% Ophth Soln [Ocuflox Ophth Soln] 1 drops RIGHT EYE QID allopurinoL [Zyloprim] 200 mg PO DAILY Acetaminophen [Tylenol Arthritis] 650 mg PO BID Latanoprost [Latanoprost 0.005%] 1 drop LEFT EYE HS calcium polycarbophiL [Fibercon] 625 mg PO BID Losartan [Cozaar] 100 mg PO DAILY #30 tab Spironolactone [Aldactone] 12.5 mg PO DAILY Acetaminophen [Tylenol] 325 mg PO BID Discharge Medication List Atorvastatin [Lipitor] 40 mg PO HS 01/07/17 [History] Gabapentin [Neurontin] 300 mg PO 0800,1700 01/10/20 [History] Apixaban [Eliquis] 5 mg PO BID 03/20/20 [History] Furosemide [Lasix] 40 mg PO DAILY 03/20/20 [History] calcitrioL [Calcitriol] 0.25 mcg PO Q7D 04/26/21 [History] allopurinoL [Zyloprim] 200 mg PO DAILY 07/16/21 [History] Acetaminophen [Tylenol Arthritis] 650 mg PO BID 01/05/22 [History] Alpha Lipoic Acid 600 mg PO DAILY 01/05/22 [History] Cholecalciferol [Vitamin D3 (25 Mcg = 1000 Iu)] 50 mcg PO DAILY 01/05/22 [History] Latanoprost [Latanoprost 0.005%] 1 drop LEFT EYE HS 01/05/22 [History] calcium polycarbophiL [Fibercon] 625 mg PO BID 01/05/22 [History] Losartan [Cozaar] 100 mg PO DAILY #30 tab 01/06/22 [Rx] Metoprolol Tartrate [Lopressor] 50 mg PO BID 01/17/22 [History] Acetaminophen [Tylenol] 325 mg PO BID 03/14/22 [History] Difluprednate [Difluprednate Ophth Soln] 1 drop RIGHT EYE QID 03/14/22 [History] Ofloxacin 0.3% Ophth Soln [Ocuflox Ophth Soln] 1 drops RIGHT EYE QID 03/14/22 [History] Spironolactone [Aldactone] 12.5 mg PO DAILY 03/14/22 [History] tiZANidine [Zanaflex] 2 mg PO BID 03/14/22 [History] traMADol HCl [Ultram] 50 mg PO BID 03/14/22 [History] Gabapentin 300 mg PO BID 3 Days #6 cap 03/21/22 [Rx] HYDROcodone/APAP 10-325MG [[place] 10-325] 1 tab PO Q6HR PRN 7 Days #28 tab 03/21/22 [Rx] Sennosides/Docusate Sodium [Senna-S 8.6-50 mg Tablet] 2 each PO DAILY PRN #30 tablet 03/21/22 [Rx] cefaDROXiL [Duricef] 500 mg PO Q12HR 5 Days #10 cap 03/21/22 [Rx] traMADol HCl [Ultram] 50 mg PO Q6H PRN #21 tab 03/21/22 [Rx] Follow up Appointment(s)/Referral(s): [facility], [facility] - As Needed Fidencio Ardon DO [Doctor of Osteopathic Medicine] - 04/03/22 11:20 am Activity/Diet/Wound Care/Special Instructions: Spine Discharge and Recovery Instructions Medications: See medication list All medication refills should be obtained through your primary care doctor or your clinic spine surgeon. Please discuss prescription refills at your follow up appointment. Do not call the hospital for medication refills. Dressing: Leave your dressing in place for a total of 5 days post operatively. Then you may remove your dressing and leave open to air. Keep the area clean and if not able to keep area clean, then cover with sterile gauze and tape. Showering: You may shower 3 days after your procedure allowing soap and water to run over incision. Do not scrub. Do not soak. Blot dry. Follow up: Please confirm a follow up appointment with your surgeon 3 weeks post operatively. Please make an appointment to follow up with your PCP in 1-2 weeks after surgery for evaluation 3 phase, 3-week plan POST OP WEEKS 1-3 1. Lifting/carrying/pushing/pulling limited to less than 5 pounds. 2. Do not sit for longer than 15 minutes at one time. Get up and walk around. Prolonged sitting is NOT advised. If you lay down, see if you can tolerate laying down on you front (belly side) 3. Walk for periods of 15 minutes = 1 mile but no longer; do it multiple times times each day. 4. Ice your low back after activity. POST OP WEEKS 3-6 1. Lifting limited to less than 20 pounds. 2. Do not sit for longer than 30 minutes at a time. Frequently change positions. Use a sit-to stand workstation or take frequent breaks from sitting if you have returned to work. 3. Walk for 30 minutes each day. If possible, do these three or more times a day POST OP WEEKS 6+ At your 6-week appointment we will give you a physical therapy referral to focus on a core stabilization and strengthening program. You should also work on leg & buttock strengthening, hamstring & quadriceps stretching, and continue a low impact aerobic activity program such as swimming, walking, or riding a stationary bicycle. During the initial 6 weeks after your surgery, you are at the highest risk of re-injuring your spine. You should generally avoid BLTs (bending, lifting and twisting combination motions) and follow the above guidelines to reduce the chance of reinjury. You can anticipate post op appointments in our office at approximately 3 weeks and 6 weeks after your surgery. INCISION CARE: If your incision is not draining you do NOT need to cover it with a dressing. Keep your incision clean, dry and intact. In most cases, we apply skin glue, elina or sutures to the incision at the time of surgery. This will be like a crust or have the appearance of a scab and will fall off in time on its own. The stitches or elina need to be removed at 3 weeks post op appointment. You may begin to shower 3 days after surgery (this allows the glue to ward well). However, please avoid scrubbing the incision site or peeling off any of the skin glue. This will ensure optimal healing of your incision. Also, during this time avoid soaking the incision area in water - this includes swimming pools, hot tubs or baths. No ointments, lotions or oils on the incision until your surgeon allows. Leave elina, sutures or glue in place. Neurological dysfunction that comes on suddenly can also be a sign of a stroke. Below some common symptoms of a stroke are listed: B - balance difficulty such as sudden onset walking or leaning to one side - NEW E - eye problem such as sudden double vision or trouble seeing on one side - NEW F - Facial weakness or numbness on one side - NEW A - Arm or leg weakness or numbness on one side - NEW S - Slurred speech or difficulty with word finding - NEW T - Time is BRAIN! Call 911 as soon as you recognize these symptoms Diet: Consume a regular diet rich in vegetables and lean protein such as chicken or fish. You should consume in a ratio of approximately 20% fats|40% carbohydrates|40%protein. Vegetables, sweet potatoes, brown rice or quinoa are examples of good carbohydrates. Chips, white bread, cookies and sweets/sugar are examples of bad carbohydrates. Limit your bad carbs, go wild with good carbs. 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 (1) Get Active. Physical activity can help people lose weight, control high blood pressure and cholesterol, feel emotionally better, and sleep better. (2) Control Cholesterol. Avoid a diet high in saturated fat, trans fat, & cholesterol. Limit whole milk & cream, ice cream, butter, egg yolks, processed meats (like sausage and hot dogs), and fatty meats. Choose healthy foods that are low in saturated fat, trans fat and cholesterol which include: Fruits and vegetables, fiber rich grain products (like whole grain pasta and brown rice), lean meat such as chicken, fish, nuts, seeds, and legumes. (3) Eat Better. Eat small portions. Shop at the grocery with a list and do not stray from it. Tips for a healthy diet include: Limit sodium intake to less than 1500mg daily, avoid prepackaged, processed, and fast foods, choose a diet rich in fruits, vegetables, and whole grain, high fiber foods, and limit saturated & cholesterol in your diet. (4) Manage Blood Pressure. If you have high blood pressure, you should have a cuff at home so that you can check your blood pressure regularly. Be sure you have a good cuff. An arm one is generally better than a wrist one. Bring the cuff to a doctor's appointment to validate that the measurements that your cuff are taking are accurate. Take your blood pressure twice daily when you are sitting down and relaxing. Record the numbers in a log and bring this log with you to your doctors' appointments. (5) Lose Weight if your BMI is above 25. A healthy BMI is between 19-25. To calculate Your BMI, you may use a Standard BMI Calculator on the NIH BMI website: <www.nhlbi.nih.gov/guidelines/obesity/BMI/bmicalc.htm>. Weigh oneself daily. If you are overweight, set a goal to lose weight. A pound a week loss if needed is a good target. (6) Reduce Blood Sugar. Limit foods and liquids with "added sugars." (Added sugars include sucrose, fructose, glucose, maltose, dextrose, high fructose corn syrup, corn syrup, concentrated fruit juice and honey). (7) Stop Smoking. If you smoke, quitting smoking is one of the best things that you can do for your health. Smoking increases your risk of heart attack, stroke, and peripheral vascular disease, which is a build-up of plaque in your arteries. Please discard all the cigarettes and lighters in your house. Have a plan for what you will do when you have the urge to smoke. Direct and second- hand smoke shortens your life as well as the lives of your family, friends and others around you. For your health and the health of those around you, please consider quitting! Proper Bending Body Mechanics: Maintain a wide stance with one foot slightly in front of the other. Keep your back straight. Bend utilizing the strength in your hips and knees. Do not bend at the waist. Maintain the lifted object at your waist-level close to your body. Avoid lifting weight that causes immediately pain or pain anywhere in the body afterwards. Smoking/Nicotine If there was ever one thing that you could do to increase your overall health, decrease your risk of cardiovascular problems by about 39% the second you make the choice, it is to STOP SMOKING. Your body's most instant gratification is th e second you stop smoking. We have all heard the studies, read the articles but it is true, smoking is extremely bad for your overall health, and moreover it is detrimental to your bone health. Nicotine, IN ANY FORM, kills bone cells, prevents your body from healing fractures, and significantly prolongs healing after surgery. In spine surgery specifically, it increases your risk of not healing your bones to create a fusion and increases your risk of having a revision surgery due to this up to 60%. I know it is hard. I know it feels impossible. But there are ways. Take con trol of your life. We are here to help you through it. And when you are ready, ask us and we can direct you to help if you desire. Use the START Plan to Quit Smoking (please visit the [employer]org website listed below for more information): S = Set a quit date. Choose a date within the next 2 weeks, so you have enough time to prepare without losing your motivation to quit. If you mainly smoke at work, quit on the weekend, so you have a few days to adjust to the change. T = Tell family, friends, and co-workers that you plan to quit. Let your friends and family in on your plan to quit smoking and tell them you need their support and encouragement to stop. Look for a quit luca who wants to stop smoking as well. You can help each other get through the rough times. A = Anticipate and plan for the challenges you'll face while quitting. Most people who begin smoking again do so within the first 3 months. You can help yourself make it through by preparing ahead for common challenges, such as nicotine withdrawal and cigarette cravings. R = Remove cigarettes and other tobacco products from your home, car, and work. Throw away all your cigarettes (no emergency pack!), lighters, ashtrays, and matches. Wash your clothes and freshen up anything that smells like smoke. Shampoo your car, clean your drapes and carpet, and steam your furniture. T = Talk to your doctor about getting help to quit. Your doctor can prescribe medication to help with withdrawal and suggest other alternatives. If you can't see a doctor, you can get many products over the counter at your local pharmacy or grocery store, including the nicotine patch, nicotine lozenges, and nicotine gum. Resources for Quitting Smoking: <https://www.[place].gov/documents/[facility]/Quit _Tobacco_Resources_for_patients_313480_7.pdf> Supplementation: Take recommended dosages of Vitamin D and Calcium to help fortify your bones and help them to heal. See your health maintenance packet for dosages and recommended levels. DVT/VTE prophylaxis: You will be given compression stockings from the hospital. Wear these daily for the first two weeks after surgery. You may take them off at night. You may be prescribed a medication to help thin your blood. Take this as directed. If you are not prescribed this medication, early and frequent ambulation has been shown to be the best prophylaxis to deep vein thrombosis and sequelae related to this event. Discharge Disposition: TRANSFER TO SNF/ECF
[2022-03-21] MEDS ORDERED: FUROSEMIDE 10 MG/ML 4 ML VIAL IV STA (14:17)
--- NOTE | 2022-03-21 15:54 | P.PN ---
Subjective Progress Note Date: 03/21/22 (delayed charting seen at 0930 and 1430) Patient is a 81-year-old male with known coronary artery disease, systolic cardiomyopathy with ejection fraction 25%, prostate cancer, diabetes, c ongestive heart failure, hypertension, dyslipidemia, and multiple other comorbid conditions who presented for elective C2 to T2 posterior lateral stabilization with fusion. Patient was pre-risk stratified by nephrology, cardiology, pulmonary, and primary care. In the PACU patient developed hypertension and issues with pain control. He was given multiple doses of Dilaudid and hydralazine. On 03/19/22 his K+ was slightly elevated and his ARB and aldactone were held. On 03/20/22 he had a fall and was found on his knees in front of the chair. His Cr elevated on 03/20/22 and his lasix was held. He developed some fluid overload on 03/21/22 and lasix was started IV. Patient seen and examined at bedside. Still slightly confused and lethargic. C/O SOB, no chest pain. Per edema is significantly increased from baseline. General: nontoxic, no distress, appears at stated age Derm: warm, dry Head: atraumatic, normocephalic, symmetric, hard cervical collar in place Eyes: EOMI, no lid lag, anicteric sclera Mouth: no lip lesion, mucus membranes moist Cardiovascular: S1S2 reg, no murmur, positive posterior tibial pulse bilateral, Lungs: ronchi bilateral bases , no accessory muscle use Abdominal: soft, nontender to palpation, no guarding, no appreciable organomegaly Ext: no gross muscle atrophy, no edema, no contractures Neuro: CN II-XI grossly intact, no focal neuro deficits Psych: Lethargic, oriented to self and situation, appropriate affect Assessment/Plan: 81 yo M s/p C2 to T2 posterior lateral stabilization with fusion. Acute toxic metabolic encephalopthy, due to pain medications - continue schedule norco to q6 hours and neurontin BID. - change felxeril to prn - supportive environment Acute Systolic congestive heart failure with ejection fraction 25% with AICD in place - monitor fluid stats closely - daily weights - Start Lasix IV BID - beta mandie - if Cr stbale in AM, resume aldactone ETTA (resolved) on Chronic kidney disease stage 3/4 - nephro recs appreciated - Continue to hold ARB and aldactone - baseline Cr 2.1-2.5 - BMP in AM Anemia, likely due to chronic renal disease- stable - baseline appears to be 9-10 - CBC in AM Diabetes mellitus type 2 with neuropathy - last A1C was 5.11 september 2021, not chronically on medications - continue SSI, monitor BS paroxysmal A fib - eliquis on hold, resume when okay with orthospine - telemetry Accelerate HTN, resolved Hyperkalemia, resolved Chronic: Dyslipidemia History of pulmonary embolism Myocardial infarction, coronary artery disease Interstitial Lung Disease/restrictive lung disease Osteoarthritis Prostate cancer Chronic back pain Glaucoma Diverticulosis Gout Patient appears to have developed AE CHF due to diuretics being held for ETTA. D/W Dr. Ardon my recommends that patient remain hospitalizaed so we care resume diuretics and monitor renal function closely. He is in agreement. If discharged today patient would be at high risk for readmission due to CHF. Thank you for allowing us to participate in the care of this pleasant patient. Do not hesitate to contact us with questions. Someone can be reached from the [facility] hospitalist group all hours of the day at [phone] or via [employer]. Active Medications Generic Name Dose Route Start Last Admin Trade Name Freq PRN Reason Stop Dose Admin Hydrocodone Bitart/Acetaminophen 1 each 03/18/22 11:20 Hydrocodone/Apap 5-325mg 1 Each Tab PO Q6HR PRN Pain Scale 4 - 6 Hydrocodone Bitart/Acetaminophen 1 each 03/20/22 12:00 03/21/22 13:28 Hydrocodone/Apap 10-325mg 1 Each Tab PO 1 each Q6HR ANGELIQUE Administration Allopurinol 200 mg 03/19/22 09:00 03/21/22 08:12 Allopurinol 100 Mg Tab PO 200 mg DAILY ANGELIQUE Administration Atorvastatin Calcium 40 mg 03/18/22 21:00 03/20/22 21:28 Atorvastatin 40 Mg Tab PO 40 mg HS ANGELIQUE Administration Calcitriol 0.25 mcg 03/22/22 09:00 Calcitriol 0.25 Mcg Cap PO Q7D ANGELIQUE Cyclobenzaprine HCl 5 mg 03/21/22 09:36 Cyclobenzaprine 5 Mg Tab PO TID PRN Spasms Dextrose/Water 25 ml 03/18/22 17:34 Dextrose 50% Syringe 50 Ml IVP PER PROTOCOL PRN Hypoglycemia Protocol Dextrose/Water 50 ml 03/18/22 17:34 Dextrose 50% Syringe 50 Ml IVP PER PROTOCOL PRN Hypoglycemia Protocol Furosemide 40 mg 03/21/22 21:00 Furosemide 10 Mg/Ml 4 Ml Vial IV Q12HR ANGELIQUE Gabapentin 300 mg 03/20/22 21:00 03/21/22 08:12 Gabapentin 300 Mg Cap PO 300 mg BID ANGELIQUE Administration Hydromorphone HCl 0.5 mg 03/18/22 11:20 03/18/22 13:21 Hydromorphone 0.5 Mg/0.5 Ml Syringe IVP 0.5 mg Q3HR PRN Administration Pain Scale 4 - 6 Hydromorphone HCl 1 mg 03/18/22 11:20 03/20/22 01:28 Hydromorphone 1 Mg/Ml 1 Ml Syringe IVP 1 mg Q3HR PRN Administration Pain Scale of 7 - 10 Lactated Ringer's 1,000 mls @ 20 mls/hr 03/18/22 06:16 03/21/22 06:52 Lactated Ringers IV Not Given .Q24H [facility] Ferric Sodium Gluconate 125 mg 110 mls @ 100 mls/hr 03/20/22 11:45 03/21/22 08:11 / Sodium Chloride IVPB 03/23/22 11:46 100 mls/hr DAILY ANGELIQUE Administration Insulin Aspart 0 unit 03/18/22 21:00 03/21/22 13:27 Insulin Aspart (Novolog) 100 Unit/Ml Vial SQ 1 unit ACHS ANGELIQUE Administration Protocol Latanoprost 1 drops 03/18/22 21:00 03/20/22 21:28 Latanoprost 0.005% Ophth Drops 2.5 Ml Btl LEFT EYE 1 drops HS ANGELIQUE Administration Magnesium Hydroxide 2,400 mg 03/18/22 11:20 Magnesium Hydroxide 2,400 Mg/10 Ml Cup PO DAILY PRN Constipation Metoprolol Tartrate 50 mg 03/18/22 21:00 03/21/22 08:12 Metoprolol Tartrate 50 Mg Tab PO 50 mg BID ANGELIQUE Administration Difluprednate [ 1 drop 03/18/22 19:00 03/21/22 12:46 Difluprednate Ophth RIGHT EYE Not Given Soln] 5 Ml Ml QID ANGELIQUE Senna/Docusate Sodium 2 each 03/18/22 11:20 Sennosides-Docusate Sodium 1 Each Tab PO DAILY PRN Constipation Sodium Bicarbonate 650 mg 03/19/22 11:15 03/21/22 08:12 Sodium Bicarbonate Tab 650 Mg Tab PO 650 mg TID ANGELIQUE Administration Objective - Vital Signs Vital signs: Vital Signs Temp 98.0 F 03/21/22 13:40 Pulse 83 03/21/22 13:40 Resp 17 03/21/22 13:40 BP 104/68 03/21/22 13:40 Pulse Ox 96 03/21/22 13:40 FiO2 Intake & Output 03/20/22 03/21/22 03/21/22 18:59 06:59 18:59 Intake Total 100 Output Total 295 105 Balance -195 -105 Weight 104.7 kg 105.1 kg Intake: Oral 100 Output: Drainage 270 30 Posterior Neck 270 30 Urine 25 75 Other: Voiding Method Toilet Toilet Toilet Urinal Urinal Urinal # Voids 1 1 - Labs CBC & Chem 7: 03/21/22 07:17 03/21/22 07:17 Labs: Abnormal Lab Results - Last 24 Hours (Table) 03/20/22 03/20/22 03/21/22 Range/Units 16:08 20:47 06:31 RBC (4.30-5.90) m/uL Hgb (13.0-17.5) gm/dL Hct (39.0-53.0) % MCHC (31.0-37.0) g/dL RDW (11.5-15.5) % BUN (9.0-27.0) mg/dL Creatinine (0.6-1.5) mg/dL Est GFR (CKD-EPI)AfAm (60.0-200.0) Est GFR (CKD-EPI)NonAf (60.0-200.0) BUN/Creatinine Ratio (12.00-20.00) Ratio POC Glucose (mg/dL) 127 H 140 H 113 H (70-110) mg/dL 03/21/22 03/21/22 03/21/22 Range/Units 07:17 07:17 11:04 RBC 3.12 L (4.30-5.90) m/uL Hgb 8.1 L (13.0-17.5) gm/dL Hct 27.6 L (39.0-53.0) % MCHC 29.5 L (31.0-37.0) g/dL RDW 17.4 H (11.5-15.5) % BUN 56.0 H (9.0-27.0) mg/dL Creatinine 2.5 H (0.6-1.5) mg/dL Est GFR (CKD-EPI)AfAm 27.0 L (60.0-200.0) Est GFR (CKD-EPI)NonAf 23.3 L (60.0-200.0) BUN/Creatinine Ratio 22.22 H (12.00-20.00) Ratio POC Glucose (mg/dL) 176 H (70-110) mg/dL
[2022-03-21 16:46] LABS: Glucose,Whole Blood 142 mg/dL (70-110)
[2022-03-21 21:22] LABS: Glucose,Whole Blood 136 mg/dL (70-110)
[2022-03-21] MEDS: ATORVASTATIN 40 MG TAB PO SCH (23:09)
[2022-03-21] MEDS: FUROSEMIDE 10 MG/ML 4 ML VIAL IV SCH (23:09)
[2022-03-21] MEDS: LATANOPROST 0.005% OPHTH DROPS 2.5 ML BTL LEFT EYE SCH (23:10)
[2022-03-22] MEDS: HYDROcodone/APAP 10-325MG 1 EACH TAB PO SCH ×4 (00:08→17:18)
[2022-03-22] MEDS: HYDROmorphone 1 MG/ML 1 ML SYRINGE IVP PRN (04:16)
[2022-03-22 06:13] LABS: Anisocytosis Slight; HCT 26.8 % (39.0-53.0); HGB 7.8 gm/dL (13.0-17.5); Hypochromasia Marked; MCH 26.2 pg (25.0-35.0); MCV 90.1 fL (80.0-100.0); Mean Platelet Volume 8.6; Platelet Count 172 k/uL (150-450); RBC 2.97 m/uL (4.30-5.90); RDW 17.8 % (11.5-15.5); WBC 9.7 k/uL (3.8-10.6)
[2022-03-22 06:23] LABS: African American GFR (CKD) 26 (>60 ml/min/1.73 sqM); Anion Gap 5 mmol/L; Blood Urea Nitrogen 57 mg/dL (9-20); Calcium 8.5 mg/dL (8.4-10.2); Carbon Dioxide 25 mmol/L (22-30); Chloride 109 mmol/L (98-107); Glucose 105 mg/dL (74-99); Magnesium 2.1 mg/dL (1.6-2.3); Non-African American GFR(CKD) 23 (>60 ml/min/1.73 sqM); Potassium 3.9 mmol/L (3.5-5.1); Sodium 139 mmol/L (137-145)
[2022-03-22 06:32] LABS: Glucose,Whole Blood 120 mg/dL (70-110)
[2022-03-22] MEDS: INSULIN ASPART (NovoLOG) 100 UNIT/ML VIAL SQ SCH ×3 (06:49→17:23)
[2022-03-22] MEDS: LACTATED RINGERS 1,000 ML IV SCH (06:49)
[2022-03-22] MEDS: SODIUM BICARBONATE TAB 650 MG TAB PO SCH ×2 (08:10→15:43)
[2022-03-22] MEDS: allopurinoL 100 MG TAB PO SCH (08:10)
[2022-03-22] MEDS: GABAPENTIN 300 MG CAP PO SCH (08:10)
[2022-03-22] MEDS: METOPROLOL TARTRATE 50 MG TAB PO SCH (08:10)
[2022-03-22] MEDS: DIFLUPREDNATE RIGHT EYE SCH ×3 (08:12→17:25)
[2022-03-22] MEDS: FUROSEMIDE 10 MG/ML 4 ML VIAL IV SCH (09:15)
[2022-03-22] MEDS: SODIUM FERRIC GLUCONAT-SUCROSE 125 MG in SODIUM CHLORIDE 0.9% 100 ML IVPB SCH (09:20)
--- NOTE | 2022-03-22 09:34 | P.PN ---
Subjective Progress Note Date: 03/22/22 Principal diagnosis: 1. Cervical Myelopathy 2. Cervical spondylosis 3. UE and LE weakness 4. Mechanical neck pain Patient was seen at bedside this morning sitting up in chair with legs elevated. Hard cervical collar is in place at this time with optifoam dressing in place over posterior cervical spine. Patient says he is still having neck pain currently. Patient also mentions some weakness in the bilateral upper extremities that he has had since surgery. Patient denies chest pain, fever, shortness breath, nausea, vomiting, change in vision, loss of bowel/bladder co ntrol. Objective - Vital Signs Vital signs: Vital Signs Temp 97.9 F 03/22/22 07:38 Pulse 62 03/22/22 07:51 Resp 19 03/22/22 07:51 BP 142/66 03/22/22 07:38 Pulse Ox 96 03/22/22 08:36 FiO2 Intake & Output 03/21/22 03/22/22 03/22/22 18:59 06:59 18:59 Output Total 105 900 Balance -105 -900 Weight 105.1 kg 105 kg Output: Drainage 30 Posterior Neck 30 Urine 75 900 Other: Voiding Method Toilet Urinal Urinal Urinal # Voids 1 1 - Exam Negative for any open fractures, significant erythema/ecchymosis/ulcers. Jahaira ent does present with some swelling in the upper extremities especially in the bilateral hands. Hard cervical collar is in place and time. Cervical dressing is in place over the posterior cervical spine. Dressing in place at this time. Negative for any active drainage. Randall well aligned and in good place. Sensation is equal, symmetric, bilaterally intact. Patient does have some tenderness to palpation over the posterior cervical spine. Nontender to palpation throughout rest of exam. Patient does have limited range of motion bilateral upper extremities on exam in elbow flexion extension and shoulder for elevation, abduction, external/internal rotation. Patient is range of motion bilateral lower extremities on exam. Motor exam - 4/5 in all major motor groups in bilateral upper extremity. 5/5 in all major motor bilateral lower extremities. Neurovascular status intact bilaterally. Radial pulses intact bilaterally. Cap refill under 3 seconds in digits of upper extremities. Negative Homans bilaterally. - Labs CBC & Chem 7: 03/22/22 05:41 03/22/22 05:41 Labs: Abnormal Lab Results - Last 24 Hours (Table) 03/21/22 03/21/22 03/21/22 Range/Units 07:17 07:17 11:04 RBC 3.12 L (4.30-5.90) m/uL Hgb 8.1 L (13.0-17.5) gm/dL Hct 27.6 L (39.0-53.0) % MCHC 29.5 L (31.0-37.0) g/dL RDW 17.4 H (11.5-15.5) % Chloride (98-107) mmol/L BUN 56.0 H (9.0-27.0) mg/dL Creatinine 2.5 H (0.6-1.5) mg/dL Est GFR (CKD-EPI)AfAm 27.0 L (60.0-200.0) Est GFR (CKD-EPI)NonAf 23.3 L (60.0-200.0) BUN/Creatinine Ratio 22.22 H (12.00-20.00) Ratio Glucose (74-99) mg/dL POC Glucose (mg/dL) 176 H (70-110) mg/dL 03/21/22 03/21/22 03/22/22 Range/Units 16:44 21:20 05:41 RBC 2.97 L (4.30-5.90) m/uL Hgb 7.8 L (13.0-17.5) gm/dL Hct 26.8 L (39.0-53.0) % MCHC 29.0 L (31.0-37.0) g/dL RDW 17.8 H (11.5-15.5) % Chloride (98-107) mmol/L BUN (9.0-27.0) mg/dL Creatinine (0.6-1.5) mg/dL Est GFR (CKD-EPI)AfAm (60.0-200.0) Est GFR (CKD-EPI)NonAf (60.0-200.0) BUN/Creatinine Ratio (12.00-20.00) Ratio Glucose (74-99) mg/dL POC Glucose (mg/dL) 142 H 136 H (70-110) mg/dL 03/22/22 03/22/22 Range/Units 05:41 06:30 RBC (4.30-5.90) m/uL Hgb (13.0-17.5) gm/dL Hct (39.0-53.0) % MCHC (31.0-37.0) g/dL RDW (11.5-15.5) % Chloride 109 H (98-107) mmol/L BUN 57 H (9.0-27.0) mg/dL Creatinine 2.60 H (0.6-1.5) mg/dL Est GFR (CKD-EPI)AfAm (60.0-200.0) Est GFR (CKD-EPI)NonAf (60.0-200.0) BUN/Creatinine Ratio (12.00-20.00) Ratio Glucose 105 H (74-99) mg/dL POC Glucose (mg/dL) 120 H (70-110) mg/dL Assessment and Plan Assessment: 1. Cervical Myelopathy 2. Cervical spondylosis 3. UE and LE weakness 4. MEchanical neck pain Postoperative day #4 status post C2-T2 posterolateral stabilized fusion Plan: 1. Cervical Myelopathy; Cervical spondylosis; UE and LE weakness; mechanical neck pain - C2 to T2 posterior lateral stabilization performed 03/18/2022. Patient at bedside this morning up in chair. drain removed at bedside yesterday. Plan for discharge to [facility] when medically stable/cleared. Follow up in office with Dr. Ardon in 2 weeks 2. Appreciate medical management 3. Pain management - [place]; Flexeril; gabapentin 4. DVT prophylaxis - mechanical 5. GI prophylaxis - senna 6. PT/OT - weightbearing as tolerated with walker and assistance; hard c-collar on at all times. 7. Encourage incentive spirometer use 8. Discharge planning - Discharge to rehab, [facility] once cleared by medicine. Time with Patient: Less than 30
[2022-03-22] MEDS ORDERED: SPIRONOLACTONE 25 MG TAB PO SCH (10:00)
[2022-03-22] MEDS ORDERED: LOSARTAN 25 MG TAB PO SCH (10:30)
--- NOTE | 2022-03-22 11:21 | P.PN ---
Subjective Patient is seen in follow-up for acute kidney injury on chronic kidney disease. Renal function stable. IV Lasix started yesterday due to edema. Has been avoiding. Hemodynamic stable. Sitting up in chair. Family present at bedside. Vital signs are stable. General: Awake. Sitting up in chair. HEENT: Head exam is unremarkable. On nasal cannula. LUNGS: Breath sounds decreased. HEART: Rate and Rhythm are regular. ABDOMEN: Soft, obese. EXTREMITITES: Trace edema. Lower extremities wrapped. Objective - Vital Signs Vital signs: Vital Signs Temp 97.9 F 03/22/22 07:38 Pulse 62 03/22/22 07:51 Resp 19 03/22/22 07:51 BP 142/66 03/22/22 07:38 Pulse Ox 96 03/22/22 08:36 FiO2 Intake & Output 03/21/22 03/22/22 03/22/22 18:59 06:59 18:59 Output Total 105 900 Balance -105 -900 Weight 105.1 kg 105 kg Output: Drainage 30 Posterior Neck 30 Urine 75 900 Other: Voiding Method Toilet Urinal Urinal Urinal # Voids 1 1 - Labs CBC & Chem 7: 03/22/22 05:41 03/22/22 05:41 Labs: Abnormal Lab Results - Last 24 Hours (Table) 03/21/22 03/21/22 03/22/22 Range/Units 16:44 21:20 05:41 RBC 2.97 L (4.30-5.90) m/uL Hgb 7.8 L (13.0-17.5) gm/dL Hct 26.8 L (39.0-53.0) % MCHC 29.0 L (31.0-37.0) g/dL RDW 17.8 H (11.5-15.5) % Chloride (98-107) mmol/L BUN (9-20) mg/dL Creatinine (0.66-1.25) mg/dL Glucose (74-99) mg/dL POC Glucose (mg/dL) 142 H 136 H (70-110) mg/dL 03/22/22 03/22/22 Range/Units 05:41 06:30 RBC (4.30-5.90) m/uL Hgb (13.0-17.5) gm/dL Hct (39.0-53.0) % MCHC (31.0-37.0) g/dL RDW (11.5-15.5) % Chloride 109 H (98-107) mmol/L BUN 57 H (9-20) mg/dL Creatinine 2.60 H (0.66-1.25) mg/dL Glucose 105 H (74-99) mg/dL POC Glucose (mg/dL) 120 H (70-110) mg/dL Assessment and Plan Plan: Assessment: 1. Acute kidney injury mostly prerenal from hypotension and diuresis with concern for urinary retention. Creatinine peaked at 3.1 this admission and is stable at 2.6 today. 2. Chronic kidney disease stage IV with baseline creatinine 2-2.2 secondary to diabetic kidney disease and nephrosclerosis. 3. Hyperkalemia secondary to acute kidney injury, acidosis and further worsened with the use of spironolactone and losartan. Improved. 4. Metabolic acidosis secondary to acute kidney injury and IV fluids. On oral bicarbonate. Better. 5. Lower extremity edema. Improved with diuresis. 6. Chronic kidney disease mineral bone disease maintained on calcitriol. 7. Anemia of chronic kidney disease. Iron deficiency noted. 8. Chronic systolic CHF with ejection fraction of 20-25%. Plan: Transitioned to oral Lasix 40 mg twice daily upon discharge. Low potassium diet. Maintain IV iron. Continue to monitor renal function and urine output. Repeat BMP and magnesium level 2-3 days postdischarge. Follow up outpatient in 1 week.
[2022-03-22 11:59] LABS: Glucose,Whole Blood 121 mg/dL (70-110)
--- NOTE | 2022-03-22 15:15 | P.PN ---
Subjective Progress Note Date: 03/22/22 (delayed charting seen an 10am and 1355) Patient is a 81-year-old male with known coronary artery disease, systolic cardiomyopathy with ejection fraction 25%, prostate cancer, diabetes, c ongestive heart failure, hypertension, dyslipidemia, and multiple other comorbid conditions who presented for elective C2 to T2 posterior lateral stabilization with fusion. Patient was pre-risk stratified by nephrology, cardiology, pulmonary, and primary care. In the PACU patient developed hypertension and issues with pain control. He was given multiple doses of Dilaudid and hydralazine. On 03/19/22 his K+ was slightly elevated and his ARB and aldactone were held. On 03/20/22 he had a fall and was found on his knees in front of the chair. His Cr elevated on 03/20/22 and his lasix was held. He developed some fluid overload on 03/21/22 and lasix was started IV. He had improvement in his fluid overload. Patient seen and examined at bedside. Still lethargic but having some pain today. No chest pain, SOB, nausea. present at bedside and all questions answered. General: nontoxic, no distress, appears at stated age Derm: warm, dry Head: atraumatic, normocephalic, symmetric, hard cervical collar in place Eyes: EOMI, no lid lag, anicteric sclera Mouth: no lip lesion, mucus membranes moist Cardiovascular: S1S2 reg, no murmur, positive posterior tibial pulse bilateral, Lungs: Decrease bs bilateral bases , no accessory muscle use Abdominal: soft, nontender to palpation, no guarding, no appreciable organomegaly Ext: no gross muscle atrophy, no edema, no contractures Neuro: CN II-XI grossly intact, no focal neuro deficits Psych: Lethargic, oriented to self and situation, appropriate affect Assessment/Plan: 81 yo M s/p C2 to T2 posterior lateral stabilization with fusion. Acute toxic metabolic encephalopthy, due to pain medications - continue schedule norco to q6 hours and neurontin BID, flexeril - supportive environment Acute Systolic congestive heart failure with ejection fraction 25% with AICD in place - monitor fluid stats closely - daily weights - change lasix to PO BID, - beta mandie - if Cr stable in AM, resume aldactone ETTA (resolved) on Chronic kidney disease stage 3/4 - nephro recs appreciated - aldactone resumed, Cozaar resumed at a lower dose - baseline Cr 2.1-2.5 -BMP in 3 days, d/w Dr. Molina f/u in 2 weeks Anemia, likely due to chronic renal disease- stable - baseline appears to be 9-10 Diabetes mellitus type 2 with neuropathy - last A1C was 5.11 september 2021, not chronically on medications - continue SSI, monitor BS paroxysmal A fib - Resume eliquis - telemetry Accelerate HTN, resolved Hyperkalemia, resolved Chronic: Dyslipidemia History of pulmonary embolism Myocardial infarction, coronary artery disease Interstitial Lung Disease/restrictive lung disease Osteoarthritis Prostate cancer Chronic back pain Glaucoma Diverticulosis Gout - Instructions added to discharge tab. Thank you for allowing us to participate in the care of this pleasant patient. Do not hesitate to contact us with questions. Someone can be reached from the [facility] hospitalist group all hours of the day at [phone] or via nap- Naturally Attached Parents serve. Active Medications Generic Name Dose Route Start Last Admin Trade Name Freq PRN Reason Stop Dose Admin Hydrocodone Bitart/Acetaminophen 1 each 03/18/22 11:20 Hydrocodone/Apap 5-325mg 1 Each Tab PO Q6HR PRN Pain Scale 4 - 6 Hydrocodone Bitart/Acetaminophen 1 each 03/20/22 12:00 03/22/22 12:49 Hydrocodone/Apap 10-325mg 1 Each Tab PO Not Given Q6HR ANGELIQUE Allopurinol 200 mg 03/19/22 09:00 03/22/22 08:10 Allopurinol 100 Mg Tab PO 200 mg DAILY ANGELIQUE Administration Atorvastatin Calcium 40 mg 03/18/22 21:00 03/21/22 23:09 Atorvastatin 40 Mg Tab PO 40 mg HS ANGELIQUE Administration Calcitriol 0.25 mcg 03/22/22 09:00 03/22/22 08:10 Calcitriol 0.25 Mcg Cap PO 0.25 mcg Q7D ANGELIQUE Administration Cyclobenzaprine HCl 5 mg 03/21/22 09:36 03/22/22 08:11 Cyclobenzaprine 5 Mg Tab PO 5 mg TID PRN Administration Spasms Dextrose/Water 25 ml 03/18/22 17:34 Dextrose 50% Syringe 50 Ml IVP PER PROTOCOL PRN Hypoglycemia Protocol Dextrose/Water 50 ml 03/18/22 17:34 Dextrose 50% Syringe 50 Ml IVP PER PROTOCOL PRN Hypoglycemia Protocol Furosemide 40 mg 03/21/22 21:00 03/22/22 09:15 Furosemide 10 Mg/Ml 4 Ml Vial IV 40 mg Q12HR ANGELIQUE Administration Gabapentin 300 mg 03/20/22 21:00 03/22/22 08:10 Gabapentin 300 Mg Cap PO 300 mg BID ANGELIQUE Administration Hydromorphone HCl 0.5 mg 03/18/22 11:20 03/18/22 13:21 Hydromorphone 0.5 Mg/0.5 Ml Syringe IVP 0.5 mg Q3HR PRN Administration Pain Scale 4 - 6 Hydromorphone HCl 1 mg 03/18/22 11:20 03/22/22 04:16 Hydromorphone 1 Mg/Ml 1 Ml Syringe IVP 1 mg Q3HR PRN Administration Pain Scale of 7 - 10 Lactated Ringer's 1,000 mls @ 20 mls/hr 03/18/22 06:16 03/22/22 06:49 Lactated Ringers IV Not Given .Q24H [facility] Ferric Sodium Gluconate 125 mg 110 mls @ 100 mls/hr 03/20/22 11:45 03/22/22 09:20 / Sodium Chloride IVPB 03/23/22 11:46 Not Given DAILY [facility] Insulin Aspart 0 unit 03/18/22 21:00 03/22/22 12:32 Insulin Aspart (Novolog) 100 Unit/Ml Vial SQ Not Given ACHS [facility] Protocol Latanoprost 1 drops 03/18/22 21:00 03/21/22 23:10 Latanoprost 0.005% Ophth Drops 2.5 Ml Btl LEFT EYE 1 drops HS [facility] Administration Losartan Potassium 25 mg 03/22/22 10:30 03/22/22 12:41 Losartan 25 Mg Tab PO 25 mg DAILY [facility] Administration Magnesium Hydroxide 2,400 mg 03/18/22 11:20 Magnesium Hydroxide 2,400 Mg/10 Ml Cup PO DAILY PRN Constipation Metoprolol Tartrate 50 mg 03/18/22 21:00 03/22/22 08:10 Metoprolol Tartrate 50 Mg Tab PO 50 mg BID [facility] Administration Difluprednate [ 1 drop 03/18/22 19:00 03/22/22 12:45 Difluprednate Ophth RIGHT EYE 1 drop Soln] 5 Ml Ml QID [facility] Administration Senna/Docusate Sodium 2 each 03/18/22 11:20 Sennosides-Docusate Sodium 1 Each Tab PO DAILY PRN Constipation Sodium Bicarbonate 650 mg 03/19/22 11:15 03/22/22 08:10 Sodium Bicarbonate Tab 650 Mg Tab PO 650 mg TID ANGELIQUE Administration Spironolactone 12.5 mg 03/22/22 10:00 03/22/22 12:44 Spironolactone 25 Mg Tab PO 12.5 mg DAILY ANGELIQUE Administration Objective - Vital Signs Vital signs: Vital Signs Temp 97.9 F 03/22/22 07:38 Pulse 62 03/22/22 07:51 Resp 19 03/22/22 07:51 BP 142/66 03/22/22 07:38 Pulse Ox 96 03/22/22 08:36 FiO2 Intake & Output 03/21/22 03/22/22 03/22/22 18:59 06:59 18:59 Output Total 105 900 300 Balance -105 -900 -300 Weight 105.1 kg 105 kg Output: Drainage 30 Posterior Neck 30 Urine 75 900 300 Other: Voiding Method Toilet Urinal Urinal Urinal # Voids 1 3 - Labs CBC & Chem 7: 03/22/22 05:41 03/22/22 05:41 Labs: Abnormal Lab Results - Last 24 Hours (Table) 03/21/22 03/21/22 03/22/22 Range/Units 16:44 21:20 05:41 RBC 2.97 L (4.30-5.90) m/uL Hgb 7.8 L (13.0-17.5) gm/dL Hct 26.8 L (39.0-53.0) % MCHC 29.0 L (31.0-37.0) g/dL RDW 17.8 H (11.5-15.5) % Chloride (98-107) mmol/L BUN (9-20) mg/dL Creatinine (0.66-1.25) mg/dL Glucose (74-99) mg/dL POC Glucose (mg/dL) 142 H 136 H (70-110) mg/dL 03/22/22 03/22/22 03/22/22 Range/Units 05:41 06:30 11:58 RBC (4.30-5.90) m/uL Hgb (13.0-17.5) gm/dL Hct (39.0-53.0) % MCHC (31.0-37.0) g/dL RDW (11.5-15.5) % Chloride 109 H (98-107) mmol/L BUN 57 H (9-20) mg/dL Creatinine 2.60 H (0.66-1.25) mg/dL Glucose 105 H (74-99) mg/dL POC Glucose (mg/dL) 120 H 121 H (70-110) mg/dL
[2022-03-22 17:24] LABS: Glucose,Whole Blood 132 mg/dL (70-110)
[2022-03-22 17:50] VITALS: BP 152/80; PULSE 66; RESP 17; TEMP 97.7
== END 2022-03-22 19:51 | DRG 453 ==
LOC: 2ORMAIN 05:40 → 4SSUR 14:28
PROVIDERS: ADMIT Orthopaedic Surgery; ATTEND Orthopaedic Surgery
PROC: 0RG2071 Fusion of 2 or more Cervical Vertebral Joints with Autologous Tissue Substitute, Posterior Approach, Posterior Column, Open Approach (ICD-10-PCS; 2022-03-18)
PROC: 00NW0ZZ Release Cervical Spinal Cord, Open Approach (ICD-10-PCS; 2022-03-18)
PROC: 00NX0ZZ Release Thoracic Spinal Cord, Open Approach (ICD-10-PCS; 2022-03-18)
PROC: 01N10ZZ Release Cervical Nerve, Open Approach (ICD-10-PCS; 2022-03-18)
PROC: 01N80ZZ Release Thoracic Nerve, Open Approach (ICD-10-PCS; 2022-03-18)
PROC: 0RG40AJ Fusion of Cervicothoracic Vertebral Joint with Interbody Fusion Device, Posterior Approach, Anterior Column, Open Approach (ICD-10-PCS; 2022-03-18)
PROC: 0RG20AJ Fusion of 2 or more Cervical Vertebral Joints with Interbody Fusion Device, Posterior Approach, Anterior Column, Open Approach (ICD-10-PCS; principal; 2022-03-18 07:30)
DX: M47.12 Other spondylosis with myelopathy, cervical region (principal); G92.8 Other toxic encephalopathy; I50.23 Acute on chronic systolic (congestive) heart failure; N17.9 Acute kidney failure, unspecified; E87.20 Acidosis, unspecified; I13.0 Hypertensive heart and chronic kidney disease with heart failure and stage 1 through stage 4 chronic kidney disease, or unspecified chronic kidney disease; J84.9 Interstitial pulmonary disease, unspecified; N18.4 Chronic kidney disease, stage 4 (severe); D63.1 Anemia in chronic kidney disease; I95.9 Hypotension, unspecified; E11.42 Type 2 diabetes mellitus with diabetic polyneuropathy; E11.22 Type 2 diabetes mellitus with diabetic chronic kidney disease; M47.22 Other spondylosis with radiculopathy, cervical region; M48.02 Spinal stenosis, cervical region; M48.061 Spinal stenosis, lumbar region without neurogenic claudication; G89.29 Other chronic pain; T50.2X5A Adverse effect of carbonic-anhydrase inhibitors, benzothiadiazides and other diuretics, initial encounter; T40.2X5A Adverse effect of other opioids, initial encounter; W18.30XA Fall on same level, unspecified, initial encounter; I48.0 Paroxysmal atrial fibrillation; R09.02 Hypoxemia; E78.5 Hyperlipidemia, unspecified; I25.10 Atherosclerotic heart disease of native coronary artery without angina pectoris; I25.5 Ischemic cardiomyopathy; G47.9 Sleep disorder, unspecified; E87.5 Hyperkalemia; M89.8X9 Other specified disorders of bone, unspecified site; R33.9 Retention of urine, unspecified; J98.4 Other disorders of lung; H40.9 Unspecified glaucoma; K57.90 Diverticulosis of intestine, part unspecified, without perforation or abscess without bleeding; M10.9 Gout, unspecified; M47.816 Spondylosis without myelopathy or radiculopathy, lumbar region; M48.062 Spinal stenosis, lumbar region with neurogenic claudication; M25.78 Osteophyte, vertebrae; E61.1 Iron deficiency; Y92.230 Patient room in hospital as the place of occurrence of the external cause; Z95.810 Presence of automatic (implantable) cardiac defibrillator; Z87.891 Personal history of nicotine dependence; Z85.46 Personal history of malignant neoplasm of prostate; I25.2 Old myocardial infarction; Z86.711 Personal history of pulmonary embolism; Z79.899 Other long term (current) drug therapy; Z79.01 Long term (current) use of anticoagulants; Z79.891 Long term (current) use of opiate analgesic; Z88.0 Allergy status to penicillin; Z88.8 Allergy status to other drugs, medicaments and biological substances; Z95.5 Presence of coronary angioplasty implant and graft
CPT/HCPCS: 72040; 72125; 80048; 82728; 83540; 83550; 83735; 84132; 85025; 85027; 85610; 85730; 86850; 86900; 86901; 94760

== ENCOUNTER 2022-03-31 16:47 | Emergency (ER) | payer MEDICARE, BC ==
[2022-03-31 17:01] VITALS: RESP 18; TEMP 97.9
--- NOTE | 2022-03-31 17:02 | ED ---
General Adult HPI - General Chief complaint: Fall Stated complaint: fall, on thinners Time Seen by Provider: 03/31/22 16:49 Source: patient, EMS Mode of arrival: EMS Limitations: no limitations - History of Present Illness Initial comments: Patient presents to the ED by ambulance from his skilled nursing ([facility]) for evaluation status post mechanical fall. Patient states that he was attempting to sit in his recliner, and when he "twisted" to sit down, he lost his balance and fell down. Patient states that he had the back of his head when he fell. Patient denies LOC or syncope. Patient states that he had cervical spine surgery performed 13 days ago, and he has been in a c-collar since then. Patient is on Eliquis anticoagulation therapy. Patient admits to having a mild occipital headache where he hit his head, but he denies any other injury or new site of pain. Patient denies focal numbness/weakness/neuro deficit, visual changes, speech difficulty, back pain, extremity pain, chest pain, dyspnea, palpitations, dizziness, abdominal pain, nausea or vomiting, or any other symptoms or complaints. - Related Data Home Medications Medication Instructions Recorded Confirmed Atorvastatin [Lipitor] 40 mg PO HS 01/07/17 03/18/22 Gabapentin [Neurontin] 300 mg PO 0800,1700 01/10/20 03/18/22 Apixaban [Eliquis] 5 mg PO BID 03/20/20 03/18/22 Furosemide [Lasix] 40 mg PO DAILY 03/20/20 03/18/22 calcitrioL [Calcitriol] 0.25 mcg PO Q7D 04/26/21 03/18/22 allopurinoL [Zyloprim] 200 mg PO DAILY 07/16/21 03/18/22 Alpha Lipoic Acid 600 mg PO DAILY 01/05/22 03/18/22 Cholecalciferol [Vitamin D3 (25 50 mcg PO DAILY 01/05/22 03/18/22 Mcg = 1000 Iu)] Latanoprost [Latanoprost 0.005%] 1 drop LEFT EYE HS 01/05/22 03/18/22 calcium polycarbophiL [Fibercon] 625 mg PO BID 01/05/22 03/18/22 Metoprolol Tartrate [Lopressor] 50 mg PO BID 01/17/22 03/18/22 Difluprednate [Difluprednate Ophth 1 drop RIGHT EYE QID 03/14/22 03/18/22 Soln] Ofloxacin 0.3% Ophth Soln [Ocuflox 1 drops RIGHT EYE QID 03/14/22 03/18/22 Ophth Soln] Spironolactone [Aldactone] 12.5 mg PO DAILY 03/14/22 03/18/22 Previous Rx's Medication Instructions Recorded Gabapentin 300 mg PO BID 3 Days #6 cap 03/21/22 HYDROcodone/APAP 10-325MG [[place] 1 tab PO Q6HR PRN 7 Days #28 tab 03/21/22 10-325] Sennosides/Docusate Sodium 2 each PO DAILY PRN #30 tablet 03/21/22 [Senna-S 8.6-50 mg Tablet] cefaDROXiL [Duricef] 500 mg PO Q12HR 5 Days #10 cap 03/21/22 traMADol HCl [Ultram] 50 mg PO Q6H PRN #21 tab 03/21/22 Cyclobenzaprine [Flexeril] 5 mg PO TID PRN tab 03/22/22 Losartan [Cozaar] 25 mg PO DAILY tab 03/22/22 Sodium Bicarbonate Tab 650 mg PO TID tab 03/22/22 Allergies Allergy/AdvReac Type Severity Reaction Status Date / Time amoxicillin Allergy Severe Unknown- Verified 03/18/22 06:29 was hospitalized hydrocodone bitartrate AdvReac Confusion Verified 03/18/22 06:29 [From Vicodin] Review of Systems ROS Statement: Those systems with pertinent positive or pertinent negative responses have been documented in the HPI. ROS Other: All systems not noted in ROS Statement are negative. Past Medical History Past Medical History: Coronary Artery Disease (CAD), Cancer, Chest Pain / Angina, Heart Failure, Diabetes Mellitus, Hyperlipidemia, Hypertension, Myocardial Infarction (WA), Renal Disease Additional Past Medical History / Comment(s): hx prostate cancer with surgery, chronic neck, bilateral shoulder and back pain, hx Gout, fatty tumor on right back, gallstones. WA's in 1981 and 2017. Ventricular Tachycardia. Ischemic Cardiomyopathy, left lung pulmonary embolism, non-dependent diabetes mellitus type 2, neuropathy b/l LE, chronic kidney disease stage IV, diverticular disease, gout, glaucoma right eye, congestive heart failure, hypertension, dyslipidemia, coronary artery disease having "gallbladder" symptoms Last Myocardial Infarction Date:: 2016 History of Any Multi-Drug Resistant Organisms: None Reported Past Surgical History: AICD, Back Surgery, Heart Catheterization, Hernia Repair, Pacemaker Additional Past Surgical History / Comment(s): CARDIOVERSION, lumbar surgery X2, cervical epidural injections, bilateral inguinal hernia repairs, TURP, colonosc opy, bilateral cataract removals., Heart Cath 03/22/20 Past Anesthesia/Blood Transfusion Reactions: No Reported Reaction Date of Last Stent Placement:: 10/18/16 Type of Cardiac Device: AICD Device Placement Date:: 01-10-17 Smoking Status: Former smoker - Past Family History Mother History Unknown: Yes Family Medical History: Unable to Obtain Additional Family Medical History / Comment(s): Mother of unknown cause. Father History Unknown: Yes Family Medical History: Unable to Obtain Additional Family Medical History / Comment(s): Father of unknown cause. General Exam Limitations: no limitations General appearance: alert, in no apparent distress Head exam: Present: other (Mild ecchymosis is noted to the patient's occipital scalp) Eye exam: Present: normal appearance, PERRL, EOMI ENT exam: Present: mucous membranes moist, TM's normal bilaterally Neck exam: Present: other (C-collar is in place; trachea is in midline) Respiratory exam: Present: normal lung sounds bilaterally. Absent: respiratory distress, wheezes, rales, rhonchi, stridor Cardiovascular Exam: Present: regular rate, normal rhythm, normal heart sounds, other (Normal radial pulses bilaterally) GI/Abdominal exam: Present: soft. Absent: distended, tenderness, guarding Extremities exam: Present: full ROM, other (Pelvis is stable and nontender; patient has full range of motion at bilateral hips without pain/difficulty). Absent: tenderness, pedal edema Back exam: Present: normal inspection. Absent: tenderness Neurological exam: Present: alert, oriented X3, CN II-XII intact. Absent: motor sensory deficit Psychiatric exam: Present: normal affect, normal mood Skin exam: Present: warm, dry, intact, normal color Course Vital Signs 03/31/22 03/31/22 16:57 18:09 Temperature 97.9 F Pulse Rate 55 L 55 L Respiratory 18 18 Rate Blood Pressure 140/80 134/60 O2 Sat by Pulse 98 98 Oximetry - Reevaluation(s) Reevaluation #1: 03/31/22 18:47 Patient denies development of any new pain or symptoms while in the ED. Patient remains alert and breathing comfortably. Patient is aware of his test results, and he feels comfortable being discharged back to his skilled nursing at this time. Patient was counseled about falls and head injuries. Patient was clearly explained return and follow-up instructions, and he feels comfortable with this plan. Medical Decision Making - Medical Decision Making Was pt. sent in by a medical professional or institution (, [facility], [employer], urgent care, hospital, or skilled nursing...) When possible be specific @ -[No] Did you speak to anyone other than the patient for history (EMS, parent, family, police, friend...)? What history was obtained from this source @ -[No] Did you review nursing and triage notes (agree or disagree)? Why? @ -[I reviewed and agree with nursing and triage notes] Were old charts reviewed (outside hosp., previous admission, EMS record, old EKG, old radiological studies, urgent care reports/EKG's, skilled nursing records)? Report findings @ -[No old charts were reviewed] Differential Diagnosis (chest pain, altered mental status, abdominal pain women, abdominal pain men, vaginal bleeding, weakness, fever, dyspnea, syncope, headache, dizziness, GI bleed, back pain, seizure, CVA, palpatations, mental health)? @ -Fall, head injury, concussion, fracture, intracranial hemorrhage, hematoma, coagulopathy EKG interpreted by me (3pts min.). @ -[As above] X-rays interpreted by me (1pt min.). @ -[None done] CT interpreted by me (1pt min.). @ -No U/S interpreted by me (1pt. min.). @ -[None done] What testing was considered but not performed or refused? (CT, X-rays, U/S, labs )? Why? @ -[None] What meds were considered but not given or refused? Why? @ -[None] Did you discuss the management of the patient with other professionals (professionals i.e. BRANDON Dean, [employer] TR[employer]IVER, lab, RT, psych nurse, bilingual social worker, table worker, teacher, equal opportunity officer, gearcase assembler)? Give summary @ -[No] Was smoking cessation discussed for >3mins.? @ -[No] Was critical care preformed (if so, how long)? @ -[No] Were there social determinants of health that impacted care today? How? (Homelessness, low income, unemployed, alcoholism, drug addiction, transportation, low edu. Level, literacy, decrease access to med. care, intermediate, rehab)? @ -[No] Was there de-escalation of care discussed even if they declined (Discuss DNR or withdrawal of care, Hospice)? DNR status @ -[No] What co-morbidities impacted this encounter? (DM, HTN, Smoking, COPD, CAD, Cancer, CVA, ARF, Chemo, Hep., AIDS, mental health diagnosis, sleep apnea, morbid obesity)? @ -[Chronic renal insufficiency] Was patient admitted / discharged? Hospital course, mention meds given and route, prescriptions, significant lab abnormalities, going to OR and other pertinent info. @ -Patient reports having a mechanical fall without LOC/syncope. Patient's labs do not demonstrate any acute abnormality. Patient has a history of chronic renal failure. Patient's CT head/cervical spine does not show any acute abnormality. I do not suspect an emergent medical condition. Will discharge patient back to his skilled nursing at this time. Undiagnosed new problem with uncertain prognosis? @ -[No] Drug Therapy requiring intensive monitoring for toxicity (Heparin, Nitro, In sulin, Cardizem)? @ -[No] Were any procedures done? @ -[No] Diagnosis/symptom? @ -Mechanical fall with head injury Acute, or Chronic, or Acute on Chronic? @ -Acute Uncomplicated (without systemic symptoms) or Complicated (systemic symptoms)? @ -Uncomplicated Side effects of treatment? @ -[No] Exacerbation, Progression, or Severe Exacerbation? @ -[No] Poses a threat to life or bodily function? How? (Chest pain, [place], WA, pneumonia, PE, COPD, DKA, ARF, appy, cholecystitis, CVA, Diverticulitis, Homicidal, Suicidal, threat to staff... and all critical care pts) @ -[No] Diagnosis/symptom? @ -[Chronic renal insufficiency] Acute, or Chronic, or Acute on Chronic? @ -Chronic Uncomplicated (without systemic symptoms) or Complicated (systemic symptoms)? @ -Uncomplicated Side effects of treatment? @ -[none] Exacerbation, Progression, or Severe Exacerbation] @ -[no] Poses a threat to life or bodily function? @ -[no] - Lab Data Result diagrams: 03/31/22 17:29 03/31/22 17:29 Lab Results 03/31/22 03/31/22 03/31/22 Range/Units 17:29 17:29 17:29 WBC 8.5 (3.8-10.6) k/uL RBC 3.46 L (4.30-5.90) m/uL Hgb 9.2 L (13.0-17.5) gm/dL Hct 30.2 L (39.0-53.0) % MCV 87.4 (80.0-100.0) fL MCH 26.5 (25.0-35.0) pg MCHC 30.3 L (31.0-37.0) g/dL RDW 18.1 H (11.5-15.5) % Plt Count 278 (150-450) k/uL MPV 9.2 Neutrophils % 80 % Lymphocytes % 8 % Monocytes % 6 % Eosinophils % 4 % Basophils % 1 % Neutrophils # 6.8 (1.3-7.7) k/uL Lymphocytes # 0.6 L (1.0-4.8) k/uL Monocytes # 0.5 (0-1.0) k/uL Eosinophils # 0.3 (0-0.7) k/uL Basophils # 0.1 (0-0.2) k/uL Hypochromasia Marked Anisocytosis Slight PT 11.2 (9.0-12.0) sec INR 1.1 (<1.2) APTT 30.4 H (22.0-30.0) sec Sodium 139 (137-145) mmol/L Potassium 4.6 (3.5-5.1) mmol/L Chloride 100 (98-107) mmol/L Carbon Dioxide 35 H (22-30) mmol/L Anion Gap 4 mmol/L BUN 33 H (9-20) mg/dL Creatinine 2.25 H (0.66-1.25) mg/dL Est GFR (CKD-EPI)AfAm 31 (>60 ml/min/1.73 sqM) Est GFR (CKD-EPI)NonAf 27 (>60 ml/min/1.73 sqM) Glucose 107 H (74-99) mg/dL Calcium 8.9 (8.4-10.2) mg/dL - Radiology Data Noncontrast CT brain/cervical spine: Recent postsurgical changes. No acute abnormality of the cervical spine. No definite complicating process. No fracture. Cerebral atrophy and mild chronic small vessel ischemia. No adverse change compared to old exam. Disposition Clinical Impression: Fall, Head injury, Chronic renal insufficiency Disposition: HOME SELF-CARE Condition: Stable Instructions (If sedation given, give patient instructions): Chronic Kidney Disease (ED), Fall Prevention for Older Adults (ED), Head Injury (ED) Additional Instructions: Return to the ER immediately should you develop new or worsening pain, numbness or weakness, persistent vomiting, shortness of breath, feeling dizzy or faint, or new or worsening symptoms. Follow up closely with your primary care provider. Is patient prescribed a controlled substance at d/c from ED?: No Referrals: Bruce Arnold MD [Primary Care Provider] - 1-2 days Time of Disposition: 18:54
[2022-03-31 17:39] LABS: Anisocytosis Slight; Basophils # (A) 0.1 k/uL (0-0.2); Basophils % (A) 1 %; Eosinophils # (A) 0.3 k/uL (0-0.7); Eosinophils % (A) 4 %; HCT 30.2 % (39.0-53.0); HGB 9.2 gm/dL (13.0-17.5); Hypochromasia Marked; Lymphocytes # (A) 0.6 k/uL (1.0-4.8); Lymphocytes % (A) 8 %; MCH 26.5 pg (25.0-35.0); MCHC 30.3 g/dL (31.0-37.0); MCV 87.4 fL (80.0-100.0); Mean Platelet Volume 9.2; Monocytes # (A) 0.5 k/uL (0-1.0); Monocytes % (A) 6 %; Neutrophils # (A) 6.8 k/uL (1.3-7.7); Neutrophils % (A) 80 %; Platelet Count 278 k/uL (150-450); RBC 3.46 m/uL (4.30-5.90); RDW 18.1 % (11.5-15.5); WBC 8.5 k/uL (3.8-10.6)
[2022-03-31 17:48] LABS: Calcium 8.9 mg/dL (8.4-10.2); Potassium 4.6 mmol/L (3.5-5.1)
[2022-03-31 17:53] LABS: INR 1.1 (<1.2); Partial Thromboplastin Time 30.4 sec (22.0-30.0); Prothrombin Time 11.2 sec (9.0-12.0)
--- NOTE | 2022-03-31 18:14 | CT ---
EXAMINATION TYPE: CT brain adamaris cárdenas DATE OF EXAM: 03/31/2022 COMPARISON: 11/11/2021 HISTORY: Fall, head injury CT DLP: 1752.3 mGycm Automated exposure control for dose reduction was used. Images of the brain and cervical spine obtained with no contrast. There is mild cerebral atrophy. There is some hypodensity in the periventricular white matter. There is no mass effect or midline shift. No sign of intracranial hemorrhage. The calvarium is intact. The skull base is intact. There is mucosal thickening left maxillary sinus. The cervical vertebra have normal alignment. There is posterior fusion surgery from C2 to the T2 vert ebral body level. There is large anterior hypertrophic bridging osteophyte formation in the mid and l ower cervical spine. There is multilevel laminectomy defect. The skull base is intact. No cervical sp ine subluxation deformity or compression fracture. There is posterior skin elina. There is minimal fluid density in the subcutaneous tissues at the posterior fusion surgery site. IMPRESSION: Recent postsurgical changes. No acute abnormality of the cervical spine. No definite complicating pro cess. No fracture. Cerebral atrophy and mild chronic small vessel ischemia. No adverse change compared to old exam.
[2022-03-31 20:19] VITALS: BP 110/66; PULSE 62
== END 2022-03-31 20:00 | disposition home or self-care (01) ==
LOC: EC 16:47
DX: S09.90XA Unspecified injury of head, initial encounter (principal); N18.4 Chronic kidney disease, stage 4 (severe); I67.82 Cerebral ischemia; I25.5 Ischemic cardiomyopathy; I25.10 Atherosclerotic heart disease of native coronary artery without angina pectoris; E11.22 Type 2 diabetes mellitus with diabetic chronic kidney disease; I13.0 Hypertensive heart and chronic kidney disease with heart failure and stage 1 through stage 4 chronic kidney disease, or unspecified chronic kidney disease; I50.9 Heart failure, unspecified; I25.2 Old myocardial infarction; E78.5 Hyperlipidemia, unspecified; Z87.891 Personal history of nicotine dependence; Z79.01 Long term (current) use of anticoagulants; Z79.899 Other long term (current) drug therapy; Z88.0 Allergy status to penicillin; Z88.5 Allergy status to narcotic agent; W01.0XXA Fall on same level from slipping, tripping and stumbling without subsequent striking against object, initial encounter
CPT/HCPCS: 36415; 70450; 72125; 80048; 85025; 85610; 85730; 99285

== ENCOUNTER 2022-04-03 12:38 | Inpatient (IN) | payer MEDICARE, BC ==
--- NOTE | 2022-04-03 13:32 | ED ---
General Adult HPI - General Chief complaint: Fall Stated complaint: Fall Time Seen by Provider: 04/03/22 13:10 Source: patient Mode of arrival: wheelchair - History of Present Illness Initial comments: Dictation was produced using [employer] dictation software. please excuse any grammatical, word or spelling errors. Chief Complaint: 81-year-old male sent in from orthospine office for fall History of Present Illness: Patient is a 81-year-old value was at his orthopedic surgeon's office. He was seen for a follow-up appointment. Patient went to the bathroom after his appointment. He was washing his hands when he went to lean on the sink to turn it.. He states his hands slipped and caused the fall. Patient states he did hit his head. Denies any pain complaints at this time. EMS was called patient brought to the ER for further care. Family [facility] reports that he has been suffering frequent falls since the back surgery. The ROS documented in this emergency department record has been reviewed and confirmed by me. Those systems with pertinent positive or negative responses have been documented in the HPI. All other systems are other negative and/or noncontributory. PHYSICAL EXAM: General Impression: Alert and oriented x3, not in acute distress HEENT: Normocephalic atraumatic, extra-ocular movements intact, pupils equal and reactive to light bilaterally, mucous membranes moist. Cardiovascular: Heart regular rate and rhythm Chest: Able to complete full sentences, no retractions, no tachypnea Abdomen: abdomen soft, non-tender, non-distended, no organomegaly Musculoskeletal: Pulses present and equal in all extremities, no peripheral edema Motor: no focal deficits noted Neurological: CN II-XII grossly intact, no focal motor or sensory deficits noted Skin: Intact with no visualized rashes Psych: Normal affect and mood ED course: 81-year-old male presents emergency Department after fall. His discharge after having follow-up at the orthospine clinic. He went to bathroom suffered mechanical fall. Vital signs upon arrival are within acceptable limits. Nursing notes and chart review was performed My EKG interpretation: Ventricular rate 67, paced rhythm,. Interval 197, QRS 120, QTC 477. No [place] prolongation, no QTC prolongation, no ST or T-wave changes noted. EKG compared to 12/27/2021 showing no changes. Overall, this EKG is unremarkable Laboratory evaluation obtained. CBC metabolic panel is at baseline for the patient. Orthostatic vital signs shows a standing blood pressure 8440 H up from a supine blood pressure 124/71. This suggests patient having orthostatic hypotension. Disposition options were discussed with patient and family were agreeable with observation admission. CT and x-rays unremarkable Was pt. sent in by a medical professional or institution (BRANDON Dean, CASE LOADER OPERATOR, urgent care, hospital, or group home...) When possible be specific @ -Sent in from Dr. Ardon's office Did you speak to anyone other than the patient for history (EMS, parent, family, police, friend...)? What history was obtained from this source @ -No Did you review nursing and triage notes (agree or disagree)? Why? @ -I reviewed and agree with nursing and triage notes Were old charts reviewed (outside hosp., previous admission, EMS record, old EKG, old radiological studies, urgent care reports/EKG's, group home records)? Report findings @ -No old charts were reviewed Differential Diagnosis (chest pain, altered mental status, abdominal pain women, abdominal pain men, vaginal bleeding, weakness, fever, dyspnea, syncope, h eadache, dizziness, GI bleed, back pain, seizure, CVA, palpatations, mental health)? @ -Differential Weakness: Hypoglycemia, shock, sepsis, hyponatremia, anemia, infection, IN, ETOH, adverse medicine reaction, overdose, stroke, this is not meant to be an all-inclusive list. EKG interpreted by me (3pts min.). @ -As above X-rays interpreted by me (1pt min.). @ -See Above CT interpreted by me (1pt min.). @ -See above U/S interpreted by me (1pt. min.). @ -None done What testing was considered but not performed or refused? (CT, X-rays, U/S, labs)? Why? @ -None What meds were considered but not given or refused? Why? @ -None Did you discuss the management of the patient with other professionals (professionals i.e. BRANDON Dean, CASE LOADER OPERATOR, lab, RT, psych nurse, social media marketing analyst, school traffic guard, teacher, enforcement officer, case management social worker)? Give summary @ -See above Was smoking cessation discussed for >3mins.? @ -No Was critical care preformed (if so, how long)? @ -No Were there social determinants of health that impacted care today? How? (Homelessness, low income, unemployed, alcoholism, drug addiction, transportation, low edu. Level, literacy, decrease access to med. care, [facility], rehab)? @ -Rehab Was there de-escalation of care discussed even if they declined (Discuss DNR or withdrawal of care, Hospice)? DNR status @ -No What co-morbidities impacted this encounter? (DM, HTN, Smoking, COPD, CAD, Cancer, CVA, ARF, Chemo, Hep., AIDS, mental health diagnosis, sleep apnea, morbid obesity)? @ -Recent back surgery Was patient admitted / discharged? Hospital course, mention meds given and route, prescriptions, significant lab abnormalities, going to OR and other pertinent info. @ -See above Undiagnosed new problem with uncertain prognosis? @ -No Drug Therapy requiring intensive monitoring for toxicity (Heparin, Nitro, Insulin, Cardizem)? @ -No Were any procedures done? @ -No Diagnosis/symptom? @ -Orthostatic hypotension Acute, or Chronic, or Acute on Chronic? @ -Acute Uncomplicated (without systemic symptoms) or Complicated (systemic symptoms)? @ -Uncomplicated Side effects of treatment? @ -No Exacerbation, Progression, or Severe Exacerbation? @ -No Poses a threat to life or bodily function? How? (Chest pain, [place], IN, pneumonia, PE, COPD, DKA, ARF, appy, cholecystitis, CVA, Diverticulitis, Homicidal, Suicidal, threat to staff... and all critical care pts) @ -No - Related Data Home Medications Medication Instructions Recorded Confirmed Atorvastatin [Lipitor] 40 mg PO HS 01/07/17 03/31/22 Apixaban [Eliquis] 5 mg PO BID 03/20/20 03/31/22 Furosemide [Lasix] 40 mg PO DAILY 03/20/20 03/31/22 calcitrioL [Calcitriol] 0.25 mcg PO SA 04/26/21 03/31/22 allopurinoL [Zyloprim] 200 mg PO DAILY 07/16/21 03/31/22 Alpha Lipoic Acid 600 mg PO DAILY 01/05/22 03/31/22 Cholecalciferol [Vitamin D3 (25 50 mcg PO DAILY 01/05/22 03/31/22 Mcg = 1000 Iu)] Latanoprost [Latanoprost 0.005%] 1 drop LEFT EYE HS 01/05/22 03/31/22 calcium polycarbophiL [Fibercon] 625 mg PO BID 01/05/22 03/31/22 Metoprolol Tartrate [Lopressor] 50 mg PO BID 01/17/22 03/31/22 Difluprednate [Difluprednate Ophth 1 drop RIGHT EYE QID 03/14/22 03/31/22 Soln] Spironolactone [Aldactone] 12.5 mg PO DAILY 03/14/22 03/31/22 Cyclobenzaprine [Flexeril] 5 mg PO Q8H PRN 03/31/22 03/31/22 Magnesium Hydroxide [Milk of 2,400 mg PO DAILY PRN 03/31/22 03/31/22 Magnesia] Sennosides [Senokot] 8.6 mg PO HS 03/31/22 03/31/22 Sodium Bicarbonate Tab 650 mg PO TID@0700,1300,1900 03/31/22 03/31/22 Previous Rx's Medication Instructions Recorded Gabapentin 300 mg PO BID 3 Days #6 cap 03/21/22 traMADol HCl [Ultram] 50 mg PO Q6H PRN #21 tab 03/21/22 Losartan [Cozaar] 25 mg PO DAILY tab 03/22/22 Allergies Allergy/AdvReac Type Severity Reaction Status Date / Time amoxicillin Allergy Severe Unknown- Verified 04/03/22 15:38 was hospitalized hydrocodone bitartrate AdvReac Confusion Verified 04/03/22 15:38 [From Vicodin] Review of Systems ROS Statement: Those systems with pertinent positive or pertinent negative responses have been documented in the HPI. ROS Other: All systems not noted in ROS Statement are negative. Past Medical History Past Medical History: Coronary Artery Disease (CAD), Cancer, Chest Pain / Angina, Heart Failure, Diabetes Mellitus, Hyperlipidemia, Hypertension, Myocardial Infarction (IN), Renal Disease Additional Past Medical History / Comment(s): hx prostate cancer with surgery, chronic neck, bilateral shoulder and back pain, hx Gout, fatty tumor on right back, gallstones. IN's in 1981 and 2017. Ventricular Tachycardia. Ischemic Cardiomyopathy, left lung pulmonary embolism, non-dependent diabetes mellitus type 2, neuropathy b/l LE, chronic kidney disease stage IV, diverticular disease, gout, glaucoma right eye, congestive heart failure, hypertension, dyslipidemia, coronary artery disease having "gallbladder" symptoms Last Myocardial Infarction Date:: 2016 History of Any Multi-Drug Resistant Organisms: None Reported Past Surgical History: AICD, Back Surgery, Heart Catheterization, Hernia Repair, Pacemaker Additional Past Surgical History / Comment(s): CARDIOVERSION, lumbar surgery X2, cervical epidural injections, bilateral inguinal hernia repairs, TURP, colonoscopy, bilateral cataract removals., Heart Cath 03/22/20 Past Anesthesia/Blood Transfusion Reactions: No Reported Reaction Date of Last Stent Placement:: 10/18/16 Type of Cardiac Device: AICD Device Placement Date:: 01-10-17 Past Psychological History: No Psychological Hx Reported Smoking Status: Former smoker - Past Family History Mother History Unknown: Yes Family Medical History: Unable to Obtain Additional Family Medical History / Comment(s): Mother of unknown cause. Father History Unknown: Yes Family Medical History: Unable to Obtain Additional Family Medical History / Comment(s): Father of unknown cause. Course Vital Signs 04/03/22 04/03/22 04/03/22 12:40 15:08 15:10 Temperature 97.7 F Pulse Rate 66 Pulse Rate [ 65 70 Pulse Oximetery ] Respiratory 20 Rate Blood Pressure 95/65 Blood Pressure 103/56 [Left Arm Sitting] Blood Pressure [Left Arm Standing] Blood Pressure 124/71 [Left Arm Supine] O2 Sat by Pulse 100 Oximetry 04/03/22 15:12 Temperature Pulse Rate Pulse Rate [ 67 Pulse Oximetery ] Respiratory Rate Blood Pressure Blood Pressure [Left Arm Sitting] Blood Pressure 84/48 [Left Arm Standing] Blood Pressure [Left Arm Supine] O2 Sat by Pulse Oximetry Medical Decision Making - Lab Data Result diagrams: 04/03/22 13:41 04/03/22 13:41 Lab Results 04/03/22 04/03/22 Range/Units 13:41 13:41 WBC 9.0 (3.8-10.6) k/uL RBC 3.54 L (4.30-5.90) m/uL Hgb 9.4 L (13.0-17.5) gm/dL Hct 31.3 L (39.0-53.0) % MCV 88.3 (80.0-100.0) fL MCH 26.6 (25.0-35.0) pg MCHC 30.1 L (31.0-37.0) g/dL RDW 17.7 H (11.5-15.5) % Plt Count 331 (150-450) k/uL MPV 8.6 Neutrophils % 82 % Lymphocytes % 7 % Monocytes % 6 % Eosinophils % 3 % Basophils % 1 % Neutrophils # 7.3 (1.3-7.7) k/uL Lymphocytes # 0.6 L (1.0-4.8) k/uL Monocytes # 0.5 (0-1.0) k/uL Eosinophils # 0.2 (0-0.7) k/uL Basophils # 0.1 (0-0.2) k/uL Hypochromasia Marked Anisocytosis Slight Sodium 140 (137-145) mmol/L Potassium 4.5 (3.5-5.1) mmol/L Chloride 101 (98-107) mmol/L Carbon Dioxide 31 H (22-30) mmol/L Anion Gap 8 mmol/L BUN 36 H (9-20) mg/dL Creatinine 2.61 H (0.66-1.25) mg/dL Est GFR (CKD-EPI)AfAm 26 (>60 ml/min/1.73 sqM) Est GFR (CKD-EPI)NonAf 22 (>60 ml/min/1.73 sqM) Glucose 130 H (74-99) mg/dL Calcium 9.1 (8.4-10.2) mg/dL Disposition Clinical Impression: Orthostatic hypotension Disposition: ADMITTED IP TO THIS [facility] Condition: Fair Referrals: Bruce Arnold MD [Primary Care Provider] - 1-2 days Decision Time: 15:42
[2022-04-03 13:57] LABS: Anisocytosis Slight; Basophils # (A) 0.1 k/uL (0-0.2); Basophils % (A) 1 %; Eosinophils # (A) 0.2 k/uL (0-0.7); Eosinophils % (A) 3 %; HCT 31.3 % (39.0-53.0); HGB 9.4 gm/dL (13.0-17.5); Hypochromasia Marked; Lymphocytes # (A) 0.6 k/uL (1.0-4.8); Lymphocytes % (A) 7 %; MCH 26.6 pg (25.0-35.0); MCHC 30.1 g/dL (31.0-37.0); MCV 88.3 fL (80.0-100.0); Mean Platelet Volume 8.6; Monocytes # (A) 0.5 k/uL (0-1.0); Monocytes % (A) 6 %; Neutrophils # (A) 7.3 k/uL (1.3-7.7); Neutrophils % (A) 82 %; Platelet Count 331 k/uL (150-450); RBC 3.54 m/uL (4.30-5.90); RDW 17.7 % (11.5-15.5)
--- NOTE | 2022-04-03 14:28 | XR ---
EXAMINATION TYPE: XR chest 1V DATE OF EXAM: 04/03/2022 2:19 PM COMPARISON: Chest radiographs from 01/06/2022. TECHNIQUE: XR chest 1V Frontal view of the chest. CLINICAL INDICATION:Male, 81 years old with history of fall; FINDINGS: Lungs/Pleura: There is no evidence of pleural effusion, focal consolidation, or pneumothorax. Chroni c senescent parenchyma changes. Pulmonary vascularity: Unremarkable. Heart/mediastinum: Cardiomediastinal silhouette is enlarged and stable. Atherosclerotic calcificatio ns are seen in the aorta. Two lead cardiac conduction device overlying the left hemithorax with lead tips projecting over the right ventricle and right atrium. Musculoskeletal: No acute osseous pathology. Cervical fusion hardware. 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 IMPRESSION: 1. No acute cardiopulmonary disease/process. 2. Persistent cardiomegaly.
--- NOTE | 2022-04-03 14:29 | XR ---
EXAMINATION TYPE: XR pelvis AP view DATE OF EXAM: 04/03/2022 2:19 PM INDICATION: Patient age:Male; 81 years old; Reason for study: fall; [facility]. COMPARISON: CT abdomen and pelvis 12/28/2021. TECHNIQUE: The pelvis was examined in a single projection. FINDINGS: There is no evidence of fracture or dislocation. There is no soft tissue abnormality. Phle bolith in the right pelvis. Multilevel degenerative changes of the lower spine. IMPRESSION: No acute osseous pathology.
--- NOTE | 2022-04-03 14:34 | CT ---
EXAMINATION TYPE: CT brain ebonyine wo con DATE OF EXAM: 04/03/2022 COMPARISON: 03/31/2022 HISTORY: Fall CT DLP: 1639.4 mGycm, Automated exposure control for dose reduction was used. CONTRAST: Patient injected with 0 mL of Isovue 300. CT of the brain is performed utilizing 3 mm thick sections through the posterior fossa and 3 mm thick sections through the remaining calvarium. Study is performed within 24 hours of arrival to the hospital. No abnormal hyperdensity is present to suggest an acute intracranial hemorrhage. No mass lesion is evident. A very subtle lacunar infarcts not excluded from the right basal ganglion. Series 2032 image 33. This may be an interval change. Some underlying chronic white matter change could be considered at this l evel which may have been present. Chronic-appearing periventricular white matter hypodensity is prese nt, likely on the basis of chronic white matter ischemic changes. Ventricles and sulci are appropriate for the patient age. Paranasal sinuses and mastoid air cells within the [id number] are clear. IMPRESSIONS: 1. Correlate for right basal ganglion lacunar infarct. Follow-up as clinically indicated. 2. Findings otherwise appear to be chronic white matter changes, stable from comparison CT cervical spine. COMPARISON: None CT of the cervical spine is performed in the axial plane at 2 mm thick sections. Reconstructed image s in the coronal, and sagittal plane are reviewed on the computer. No acute fractures are evident. Vertebral body alignment is normal. Diffuse loss of disc height is present. Vertebral body heights are preserved. There is been laminectomy. Post cervical fusion is evident. Large anterior vertebral body spurs are p resent at C2, C4-T1. Foraminal stenosis present bilaterally at C3-4, C4-5, C5-6. Findings are stable over the interval. IMPRESSIONS: 1. Postsurgical changes within the cervical spine. No acute abnormality post fall is evident.
--- NOTE | 2022-04-03 14:46 | XR ---
EXAMINATION TYPE: XR lumbar spine 2 or 3V DATE OF EXAM: 04/03/2022 CLINICAL HISTORY: Fall TECHNIQUE: Three views of the lumbar spine are submitted. COMPARISON: CT lumbar spine 07/16/2021 FINDINGS: There are 5 lumbar type vertebral bodies identified. The lumbar spine shows satisfactory alignment w ithout evidence of acute fracture or dislocation. Mild levo curvature of the lumbar spine. Vertebral body heights are within normal limits. Multilevel degenerative disc disease with disc , endplate scle rosis, vacuum disc disease, and transferred ptosis. Multilevel facet arthropathy. Facet sclerosis. Th e overlying soft tissue appears unremarkable. IMPRESSION: 1. No acute fracture or dislocation is seen in the lumbar spine. There is continued clinical concern , consider further evaluation with CT lumbar spine. 2. Moderate multilevel degenerative disc disease.
--- NOTE | 2022-04-03 14:48 | XR ---
EXAMINATION TYPE: XR thoracic spine 2V DATE OF EXAM: 04/03/2022 2:39 PM INDICATION: Patient age:Male; 81 years old; Reason for study: fall; [facility]. COMPARISON: Chest radiograph of the same day. TECHNIQUE: 3 views of the thoracic spine in frontal, lateral, swimmer's projections. FINDINGS: Postsurgical changes of the cervicothoracic spine with bilateral pedicular screws and rods. Hardware appears intact. Multilevel degenerative disc disease with disc space narrowing, endplate sclerosis, a nd anterior osteophytosis. No evidence of acute fracture. No loss of vertebral height. There is cynthia l alignment of the thoracic vertebral bodies. Cardiomegaly. Partial visualization of cardiac pacemake r leads. IMPRESSION: 1. No acute osseous pathology. 2. Moderate multilevel degenerative disc disease.
[2022-04-03 14:50] LABS: Calcium 9.1 mg/dL (8.4-10.2); Potassium 4.5 mmol/L (3.5-5.1)
[2022-04-03] MEDS ORDERED: NALOXONE 0.4 MG/ML 1 ML VIAL IV PRN (15:38)
[2022-04-03] MEDS ORDERED: ASPIRIN 81 MG PO STA (16:04)
--- NOTE | 2022-04-03 17:27 | P.HPIM ---
History of Present Illness H&P Date: 04/03/22 History of Presenting Illness: Patient is a very pleasant 81-year-old male with known past medical history of coronary artery disease, systolic cardiomyopathy with ejection fraction 25% with AICD placed, paroxysmal atrial fibrillation on anticoagulation with Eliquis, prostate cancer, congestive heart failure, hypertension, dyslipidemia, stage IV chronic kidney disease and multiple other comorbid conditions. Patient recently underwent C2 through T2 posteriolateral stabilized fusion with segmental instrumentation of C2 through T2 and bilateral laminectomy with partial medial facetectomy and foraminotomy C2 through T2 on 03/18/22 and discharged to alf facility for rehab. Patient presented to the emergency department today secondary to fall/syncopal episode. Patient reports he was at orthopedic surgeon's office for follow-up appointment and went to the restroom. Patient reports standing and urinating without any difficulties and washing his hands in the sink. Patient reports he then remembers his hands slipping and lying on the bathroom floor. Patient is uncertain of whether or not he lost consciousness, but does remember calling for assistance. Patient denies experiencing any dizziness or lightheadedness. He does report awakening this morning with a "throbbing and pounding" migraine headache but thought that it was because he was given his medications wrong. He denies having any recent fevers, chills, diaphoresis, dizziness, lightheadedness, chest pain, palpitations, shortness of breath, nausea, vomiting, or experiencing any focal numbness/weakness/tingling. Patient underwent full evaluation in the emergency department. He was initially hypotensive with blood pressure of 95/65 and was also found to be positive for orthostatic hypotension with blood pressure supine 124/71 with heart rate of 65, sitting 103/56 with heart rate of 70, and standing 84/48 with heart rate of 67. Patient was taken for computed tomography scan. CT head reported concerning for possible right basal ganglia lacunar infarct. CT cervical spine showing postsurgical changes with the cervical spine with no acute abnormality reported. Chest x-ray reviewed reporting persistent cardiomegaly with no acute cardiopulmonary process. X-ray pelvis negative for acute osseous pathology. X-ray lumbar spine negative for acute fracture or dislocation consistent with previously noted moderate multilevel degenerative disc disease. X-ray thoracic spine reporting no acute osseous pathology with moderate multilevel degenerative disc disease. EKG completed and personally reviewed showing an atrial paced rhythm at 67 bpm with occasional PVC and T-wave inversion in lateral leads 1, 2, aVL, V5, and V6 unchanged when compared to pr evious EKG is completed on 01/05/22 and 11/13/21. Labs completed and reviewed. CBC consistent with normocytic anemia with hemoglobin of 9.4, at baseline. BMP showing hypercarbia with carbon dioxide of 31 and consistent with stage IV chronic kidney disease with BUN 36, creatinine 2.61, and GFR of 22 with baseline creatinine of 2.2. Patient's presenting complaints along with laboratory and imaging findings discussed with ED physician and patient was accepted for admission under our services to observation for orthostatic hypotension. Patient has his hard c-collar in place and states he has kept it on since surgery on 03/18/22 and reports he was instructed to wear and not remove it for 4 weeks. Review of systems: Pertinent positives and negatives as discussed in HPI, a complete review of systems was performed and all other systems are negative. Physical exam: Vital signs reviewed and stable. General: Nontoxic, no distress and appears stated age. Derm: Skin warm and dry, normal coloration for ethnicity. Head: Atraumatic, normocephalic and symmetric. Heart c-collar in place. Eyes: EOMs intact, no lid lag, and anicteric sclera Mouth: no lip lesions, mucus membranes moist Cardiovascular: regular rate and rhythm with normal S1S2, systolic murmur, positive posterior tibial pulses bilaterally, and cap refill < 2 seconds. Pacemaker left anterior chest. Lungs: Respirations even, regular, and unlabored on room air. Lungs CTA bilaterally, no rhonchi, no rales, no wheezing, and no accessory muscle usage. Abdominal: soft, nontender to palpation, no guarding, no appreciable organomegaly Ext: ROM intact. No gross muscle atrophy, no edema, no contractures Neuro: Speech clear, face symmetrical and CN II-XII grossly intact with no noted focal neuro deficits. Psych: Alert and oriented to person, place, time, and situation. Appropriate and pleasant affect. Assessment and Plan of Care: Syncopal episode, likely secondary to orthostatic hypotension Orthostatic hypotension Systolic cardiomyopathy with previously known EF of 25-30% Moderate mitral regurgitation Coronary artery disease Paroxysmal atrial fibrillation -Orthostatic hypotension possibly secondary to medication adverse effect. -Patient appears dry, will hold diuretics Lasix and Aldactone and place patient on gentle IV fluid hydration at 75mL per hour. We will be cautious with fluid administration secondary to previously known impaired EF. -Telemetry monitoring -Consult cardiology. -Consult neurology -CT head concerning for possible right basal ganglia lacunar infarct. -Fall precautions -Neuro checks -Orthostatic vitals -Parameters placed on metoprolol to hold for systolic pressure less than 110 and/or heart rate less than 60. -At this time we will continue with cardiac medication regimen consisting of Eliquis, aspirin, atorvastatin, losartan, and metoprolol. Anemia of chronic disease secondary to stage IV chronic kidney disease -Hemoglobin 9.1, with baseline hemoglobin around 10.5. -Hemoglobin stable at this time. We will continue to monitor with repeat a.m. labs. Stage IV CKD -BUN 36, creatinine 2.61, and GFR of 22. Baseline creatinine 2.2. -Continue with sodium bicarb 650 mg 3 times daily Status post C2 through T2 posteriolateral stabilized fusion with segmental instrumentation of C2 through T2 and bilateral laminectomy with partial medial facetectomy and foraminotomy C2 through T2 on 03/18/22 -Patient to keep hard cervical collar in place until further directed by orthopedic surgeon upon follow-up outpatient. -Fall precautions The patient is admitted with an anticipated less than 2 midnight stay for evalu ation of syncopal episode and orthostatic hypotension CODE STATUS: Full code DVT prophylaxis: Hamzah Discussed with: Pt and RN Anticipated discharge date: 1-[address]: Return to rehab A total of 47 minutes was spent on the care of this complex patient more than 50% of the time was spent in counseling and care coordination. I reviewed the documentation as provided by the OBIE above, who is the original author of this note. I agree with the documented assessment and plan, with the following changes: none Past Medical History Past Medical History: Coronary Artery Disease (CAD), Cancer, Chest Pain / Angina, Heart Failure, Diabetes Mellitus, Hyperlipidemia, Hypertension, Myocardial Infarction (OR), Renal Disease Additional Past Medical History / Comment(s): hx prostate cancer with surgery, chronic neck, bilateral shoulder and back pain, hx Gout, fatty tumor on right back, gallstones. OR's in 1981 and 2017. Ventricular Tachycardia. Ischemic Cardiomyopathy, left lung pulmonary embolism, non-dependent diabetes mellitus type 2, neuropathy b/l LE, chronic kidney disease stage IV, diverticular disease, gout, glaucoma right eye, congestive heart failure, hypertension, dyslipidemia, coronary artery disease having "gallbladder" symptoms Last Myocardial Infarction Date:: 2016 History of Any Multi-Drug Resistant Organisms: None Reported Past Surgical History: AICD, Back Surgery, Heart Catheterization, Hernia Repair, Pacemaker Additional Past Surgical History / Comment(s): CARDIOVERSION, lumbar surgery X2, cervical epidural injections, bilateral inguinal hernia repairs, TURP, colonosco py, bilateral cataract removals., Heart Cath 03/22/20 Past Anesthesia/Blood Transfusion Reactions: No Reported Reaction Date of Last Stent Placement:: 10/18/16 Type of Cardiac Device: AICD Device Placement Date:: 01-10-17 Past Psychological History: No Psychological Hx Reported Smoking Status: Former smoker - Past Family History Mother History Unknown: Yes Family Medical History: Unable to Obtain Additional Family Medical History / Comment(s): Mother of unknown cause. Father History Unknown: Yes Family Medical History: Unable to Obtain Additional Family Medical History / Comment(s): Father of unknown cause. Medications and Allergies Home Medications Medication Instructions Recorded Confirmed Type Atorvastatin [Lipitor] 40 mg PO HS 01/07/17 04/03/22 History Apixaban [Eliquis] 5 mg PO BID 03/20/20 04/03/22 History Furosemide [Lasix] 40 mg PO DAILY 03/20/20 04/03/22 History calcitrioL [Calcitriol] 0.25 mcg PO SA 04/26/21 04/03/22 History allopurinoL [Zyloprim] 200 mg PO DAILY 07/16/21 04/03/22 History Alpha Lipoic Acid 600 mg PO DAILY 01/05/22 04/03/22 History Cholecalciferol [Vitamin D3 (25 50 mcg PO DAILY 01/05/22 04/03/22 History Mcg = 1000 Iu)] Latanoprost [Latanoprost 0.005%] 1 drop LEFT EYE HS 01/05/22 04/03/22 History calcium polycarbophiL [Fibercon] 625 mg PO BID 01/05/22 04/03/22 History Metoprolol Tartrate [Lopressor] 50 mg PO BID 01/17/22 04/03/22 History Difluprednate [Difluprednate Ophth 1 drop RIGHT EYE QID 03/14/22 04/03/22 History Soln] Spironolactone [Aldactone] 12.5 mg PO DAILY 03/14/22 04/03/22 History Gabapentin 300 mg PO BID 3 Days #6 cap 03/21/22 04/03/22 Rx traMADol HCl [Ultram] 50 mg PO Q6H PRN #21 tab 03/21/22 04/03/22 Rx Losartan [Cozaar] 25 mg PO DAILY tab 03/22/22 04/03/22 Rx Cyclobenzaprine [Flexeril] 5 mg PO Q8H PRN 03/31/22 04/03/22 History Magnesium Hydroxide [Milk of 2,400 mg PO DAILY PRN 03/31/22 04/03/22 History Magnesia] Sennosides [Senokot] 8.6 mg PO HS 03/31/22 04/03/22 History Sodium Bicarbonate Tab 650 mg PO TID@0700,1300,1900 03/31/22 04/03/22 History Allergies Allergy/AdvReac Type Severity Reaction Status Date / Time amoxicillin Allergy Severe Unknown- Verified 04/03/22 15:38 was hospitalized hydrocodone bitartrate AdvReac Confusion Verified 04/03/22 15:38 [From Vicodin] Physical Exam Osteopathic Statement: *. No significant issues noted on an osteopathic structural exam other than those noted in the History and Physical/Consult. Vitals: Vital Signs Temp Pulse Pulse Resp BP BP BP 04/03/22 15:12 67 84/48 04/03/22 15:10 70 103/56 04/03/22 15:08 65 04/03/22 12:40 97.7 F 66 20 95/65 BP Pulse Ox 04/03/22 15:12 04/03/22 15:10 04/03/22 15:08 124/71 04/03/22 12:40 100 Intake and Output 04/03/22 04/03/22 04/03/22 06:59 14:59 22:59 Other: Weight 99.79 kg Results CBC & Chem 7: 04/03/22 13:41 04/03/22 13:41 Labs: Abnormal Lab Results - Last 24 Hours (Table) 04/03/22 04/03/22 Range/Units 13:41 13:41 RBC 3.54 L (4.30-5.90) m/uL Hgb 9.4 L (13.0-17.5) gm/dL Hct 31.3 L (39.0-53.0) % MCHC 30.1 L (31.0-37.0) g/dL RDW 17.7 H (11.5-15.5) % Lymphocytes # 0.6 L (1.0-4.8) k/uL Carbon Dioxide 31 H (22-30) mmol/L BUN 36 H (9-20) mg/dL Creatinine 2.61 H (0.66-1.25) mg/dL Glucose 130 H (74-99) mg/dL
[2022-04-03 17:33] LABS: Glucose,Whole Blood 114 mg/dL (70-110)
[2022-04-03] MEDS: SODIUM CHLORIDE 0.9% 1,000 ML IV SCH (18:14)
[2022-04-03] MEDS: NON FORMULARY DRUG (Difluprednate [Difluprednate Ophth Soln] 5 ML Ml) RIGHT EYE SCH ×2 (18:42→20:41)
[2022-04-03 20:34] LABS: Glucose,Whole Blood 145 mg/dL (70-110)
[2022-04-03] MEDS: SODIUM BICARBONATE TAB 650 MG TAB PO SCH (20:41)
[2022-04-03] MEDS: APIXABAN 5 MG TAB PO SCH (20:41)
[2022-04-03] MEDS: GABAPENTIN 300 MG CAP PO SCH (20:41)
[2022-04-03] MEDS: SENNOSIDES 8.6 MG TAB PO SCH (20:41)
[2022-04-03] MEDS: LATANOPROST 0.005% OPHTH DROPS 2.5 ML BTL LEFT EYE SCH (20:41)
[2022-04-03] MEDS: ATORVASTATIN 40 MG TAB PO SCH (20:41)
[2022-04-03] MEDS: METOPROLOL TARTRATE 50 MG TAB PO SCH (20:41)
[2022-04-04] MEDS: SODIUM CHLORIDE 0.9% 1,000 ML IV SCH ×2 (05:43→20:54)
[2022-04-04 07:40] LABS: Glucose,Whole Blood 90 mg/dL (70-110)
[2022-04-04] MEDS ORDERED: SPIRONOLACTONE 25 MG TAB PO SCH (09:00)
[2022-04-04] MEDS: APIXABAN 5 MG TAB PO SCH ×2 (09:07→20:54)
[2022-04-04] MEDS: allopurinoL 100 MG TAB PO SCH (09:07)
[2022-04-04] MEDS: LOSARTAN 25 MG TAB PO SCH (09:07)
[2022-04-04] MEDS: SODIUM BICARBONATE TAB 650 MG TAB PO SCH ×3 (09:07→18:17)
[2022-04-04] MEDS: NON FORMULARY DRUG (Difluprednate [Difluprednate Ophth Soln] 5 ML Ml) RIGHT EYE SCH ×4 (09:07→20:55)
[2022-04-04] MEDS: GABAPENTIN 300 MG CAP PO SCH ×2 (09:07→20:54)
[2022-04-04] MEDS: traMADol 50 MG TAB PO PRN ×2 (09:13→20:54)
--- NOTE | 2022-04-04 10:39 | CONS ---
CONSULTATION CHIEF COMPLAINT: Hypotension. HISTORY OF PRESENT ILLNESS: Mr. Vega is a 81-year-old gentleman who sees Dr. NANCY Zuñiga on a regular basis, has history of ischemic cardiomyopathy status post AICD, coronary artery disease status post angioplasty of the LAD and prior CT of the right coronary artery, ventricular tachycardia, hypertension, dyslipidemia, diabetes, and chronic renal failure, who presented to hospital having had recurrent episodes of syncope at home. He states that he was at a flea market and then had a near syncopal and syncopal event. He has had these symptoms in the past, most recently he described this during his evaluation by Dr. Zuñiga in January. He has known atrial fibrillation and is currently on Eliquis. The patient underwent cardiac catheterization in January 2022 following his presentation with very similar symptomatology that revealed chronic occlusion of the right coronary artery, 40% stenosis involving circumflex coronary artery, and a widely patent LAD stent with disease in the diag which is unchanged and he was advised medical therapy. On this admission, he definitely has orthostatic hypotension which is probably responsible for his symptoms. We will get his AICD checked. He has chronic renal insufficiency with a creatinine of 2.6 and he is anemic with a hemoglobin of 9.4. PAST MEDICAL HISTORY: Significant for coronary artery disease, status post prior angioplasty; ischemic cardiomyopathy, status post AICD; and paroxysmal atrial fibrillation. MEDICATIONS AT HOME: 1. Aldactone. 2. Zyloprim. 3. Senokot. 4. Lopressor 50 b.i.d. 5. Cozaar 25 mg daily. 6. Lasix 40 mg daily. 7. Flexeril. 8. Lipitor. 9. Eliquis. ALLERGIES: To amoxicillin and Vicodin. FAMILY HISTORY: Negative for premature coronary artery disease. SOCIAL HISTORY: Negative for smoking, EtOH abuse or drug abuse. REVIEW OF SYSTEMS: A review of systems has been performed, pertinence are as documented. PHYSICAL EXAMINATION: VITAL SIGNS: On exam, the patient is afebrile. Vital signs are stable. CHEST: Reveals good air entry bilaterally. HEART: Reveals first and second heart sounds and systolic murmur at the apex. ABDOMEN: Soft. EXTREMITIES: Reveal trace edema. Peripheral pulses are palpable. LABS: Showed potassium of 4.5, BUN is 36, creatinine is 2.6, hemoglobin is 9.4. ASSESSMENT: 1. Dizziness and syncope probably secondary to orthostatic hypotension. 2. Coronary artery disease, multivessel coronary artery disease with recent cardiac catheterization and medical therapy. 3. Ischemic cardiomyopathy, status post AICD. PLAN: I am going to start the patient on midodrine and hopefully this will help mitigate his symptoms. I will also obtain a 2D echo to evaluate his LV function. If he continues to have these symptoms, we might consider getting the ICD checked. SHANTA / PHYLLIS: [id number] /
[2022-04-04] MEDS: METOPROLOL TARTRATE 50 MG TAB PO SCH ×2 (11:28→20:55)
--- NOTE | 2022-04-04 12:00 | P.CNNES ---
History of Present Illness Consult date: 04/04/22 Requesting physician: Darnell Campos Reason for Consult: CT concerning for possible rate basal ganglia lacunar infarct History of Present Illness: Patient is a 81-year-old male came to the hospital today at 12:38 PM after a fall. Patient states he had undergone cervical fusion on 03/18/2022. He was transferred to [facility] for rehab. Prior to arrival, patient suffered from a fall. Patient states that he was unlocking his wheelchair. He was able to unlock one of the wheel, but the second one he could not unlock. When he tried to stand up holding onto the sink, his hand slipped and he fell on his hands, and his head slightly hit the wall. Patient has been on Eliquis for several years. Neurology was consulted for abnormal brain scan. Vital signs arrival blood pressure 95/65, which improved to 103/56. Pulse rate 66 temperature 97.7. Blood test shows normal WBC hemoglobin 9.4, platelets 331. Electrolytes are normal, BUN 36, creatinine 2.61. Calcium normal. Patient's last hemoglobin A1c 5.5 09/07/2021. Lipid panel with cholesterol 151, LDL 81, HDL 32 and triglycerides 187 on 11/01/2020. B12 286 on 11/11/2021 and folate 13.9. TSH normal. Chest x-ray showed no acute cardio pulmonary process. Persistent cardiomegaly. Pelvic x-ray negative. CT of the cervical spine showed postsurgical changes within the cervical spine. No acute abnormality post fall is evident. He scan of the head revealed correlate for right basal ganglion lacunar infarct. Follow-up as clinically indicated. Findings otherwise appear to be chronic white matter changes, stable from comparison. I personally reviewed CT head, agree with the findings. It could be artifactual, less likely to be real, or perhaps related to small vessel disease. Lumbar spine x-ray showed no acute fracture or dislocation in the lumbar spine. Moderate multilevel degenerative disc disease. Thoracic spine x-ray showed no acute osseous pathology. Moderate multilevel degenerative disc disease. EKG shows sinus rhythm with occasional ventricular premature complexes. Patient has been seen by Dr. Gage on 01/03/2024 dizziness/vertigo. It was felt to be due to orthostatic hypotension as well as possible due to labyrinthitis especially with a history of otitis media for 1 week. Patient's home medication includes Lipitor 40 mg, Eliquis 5 mg twice a day, Lasix 40 mg daily, allopurinol, vitamin D, calcium, metoprolol, spironolactone 12.5 in rem daily, tramadol 50 mg every 6 hours when necessary, gabapentin 3 mg twice a day, losartan, magnesium, Flexeril. Patient has history of smoking 1-2 pack per day for 20 years, quit in 1980 after he suffered from an AL. Denies any alcohol use. Patient denies any numbness, tingling, focal weakness, slurred speech, facial droop, problem with the vision. He states that he does have history of migraines, gets migraines only when he does not take his gabapentin not tramadol. Patient had orthostatics checked, which was positive. Supine blood pressure 143/81, with pulse rate 55. Sitting up was 103/70 and pulse of 72. Standing up was 105/68 and pulse of 76. Cardiology on board. Review of Systems Constitutional: Denies chills, Denies fever Eyes: denies blurred vision, denies pain Ears, nose, mouth and throat: Denies headache, Denies sore throat Cardiovascular: Denies chest pain, Denies shortness of breath Respiratory: Denies cough Gastrointestinal: Denies abdominal pain, Denies diarrhea, Denies nausea, Denies vomiting Musculoskeletal: Reports neck pain, Denies frequent falls, Denies muscle weakness, Denies myalgias Integumentary: Denies pruritus, Denies rash Neurological: Reports as per HPI Psychiatric: Denies anxiety, Denies depression Endocrine: Denies fatigue, Denies weight change Past Medical History Past Medical History: Coronary Artery Disease (CAD), Cancer, Chest Pain / Angina, Heart Failure, Diabetes Mellitus, Hyperlipidemia, Hypertension, Myocardial Infarction (AL), Renal Disease Additional Past Medical History / Comment(s): hx prostate cancer with surgery, chronic neck, bilateral shoulder and back pain, hx Gout, fatty tumor on right back, gallstones. AL's in 1980 and 2016. Ventricular Tachycardia. Ischemic Cardiomyopathy, left lung pulmonary embolism, non-dependent diabetes mellitus type 2, neuropathy b/l LE, chronic kidney disease stage IV, diverticular disease, gout, glaucoma right eye, congestive heart failure, hypertension, dys lipidemia, coronary artery disease having "gallbladder" symptoms Last Myocardial Infarction Date:: 2016 History of Any Multi-Drug Resistant Organisms: None Reported Past Surgical History: AICD, Back Surgery, Heart Catheterization, Hernia Repair, Pacemaker Additional Past Surgical History / Comment(s): CARDIOVERSION, lumbar surgery X2, cervical epidural injections, bilateral inguinal hernia repairs, TURP, colonoscopy, bilateral cataract removals., Heart Cath 03/22/20 Past Anesthesia/Blood Transfusion Reactions: No Reported Reaction Date of Last Stent Placement:: 10/18/16 Type of Cardiac Device: AICD Device Placement Date:: 01-10-17 Past Psychological History: No Psychological Hx Reported Smoking Status: Former smoker - Past Family History Mother History Unknown: Yes Family Medical History: Unable to Obtain Additional Family Medical History / Comment(s): Mother of unknown cause. Father History Unknown: Yes Family Medical History: Unable to Obtain Additional Family Medical History / Comment(s): Father of unknown cause. Medications and Allergies Home Medications Medication Instructions Recorded Confirmed Type Atorvastatin [Lipitor] 40 mg PO HS 01/07/17 04/03/22 History Apixaban [Eliquis] 5 mg PO BID 03/20/20 04/03/22 History Furosemide [Lasix] 40 mg PO DAILY 03/20/20 04/03/22 History calcitrioL [Calcitriol] 0.25 mcg PO SA 04/26/21 04/03/22 History allopurinoL [Zyloprim] 200 mg PO DAILY 07/16/21 04/03/22 History Alpha Lipoic Acid 600 mg PO DAILY 01/05/22 04/03/22 History Cholecalciferol [Vitamin D3 (25 50 mcg PO DAILY 01/05/22 04/03/22 History Mcg = 1000 Iu)] Latanoprost [Latanoprost 0.005%] 1 drop LEFT EYE HS 01/05/22 04/03/22 History calcium polycarbophiL [Fibercon] 625 mg PO BID 01/05/22 04/03/22 History Metoprolol Tartrate [Lopressor] 50 mg PO BID 01/17/22 04/03/22 History Difluprednate [Difluprednate Ophth 1 drop RIGHT EYE QID 03/14/22 04/03/22 Hi story Soln] Spironolactone [Aldactone] 12.5 mg PO DAILY 03/14/22 04/03/22 History Gabapentin 300 mg PO BID 3 Days #6 cap 03/21/22 04/03/22 Rx traMADol HCl [Ultram] 50 mg PO Q6H PRN #21 tab 03/21/22 04/03/22 Rx Losartan [Cozaar] 25 mg PO DAILY tab 03/22/22 04/03/22 Rx Cyclobenzaprine [Flexeril] 5 mg PO Q8H PRN 03/31/22 04/03/22 History Magnesium Hydroxide [Milk of 2,400 mg PO DAILY PRN 03/31/22 04/03/22 History Magnesia] Sennosides [Senokot] 8.6 mg PO HS 03/31/22 04/03/22 History Sodium Bicarbonate Tab 650 mg PO TID@0700,1300,1900 03/31/22 04/03/22 History Allergies Allergy/AdvReac Type Severity Reaction Status Date / Time amoxicillin Allergy Severe Unknown- Verified 04/03/22 15:38 was hospitalized hydrocodone bitartrate AdvReac Confusion Verified 04/03/22 15:38 [From Vicodin] Physical Examination - Vital Signs Vital Signs: Vital Signs Temp Pulse Pulse Resp BP BP BP 04/04/22 02:18 98.4 F 53 L 17 04/03/22 20:00 74 18 04/03/22 19:06 97.5 F L 74 18 04/03/22 18:56 18 04/03/22 17:26 97.5 F L 58 L 16 04/03/22 15:12 67 84/48 04/03/22 15:10 70 103/56 04/03/22 15:08 65 04/03/22 12:40 97.7 F 66 20 95/65 BP Pulse Ox 04/04/22 02:18 149/79 99 04/03/22 20:00 04/03/22 19:06 148/71 96 04/03/22 18:56 04/03/22 17:26 127/63 100 04/03/22 15:12 04/03/22 15:10 04/03/22 15:08 124/71 04/03/22 12:40 100 Intake and Output 04/03/22 04/04/22 04/04/22 22:59 06:59 14:59 Intake Total 1000 Balance 1000 Intake: Intake, IV Titration 1000 Amount Sodium Chloride 0.9% 1, 1000 000 ml @ 75 mls/hr IV . [id number] [facility] Rx#:[id number] Other: Voiding Method External Catheter # Voids 1 Weight 99.79 kg Patient is an elderly male, in no acute distress. Patient is alert awake oriented to time place and person. He knows it is March 2022 and that he is in [facility], name of the current president and his own date of . Speech and language functions are normal. Patient can name and repeat very well. No aphasia or dysarthria. Attention, concentration and fund of knowledge is adequate. On cranial nerve examination, pupils are equal, round and reacting to light, visual cortes are full on confrontation, with no neglect on double simultaneous stimulation. Extraocular muscles are intact with no nystagmus. Face is symmetric, tongue protrudes to the midline. Palatal elevation and sensation normal, hearing and shoulder shrug normal, facial sensation normal. On muscle strength testing, there is no pronator drift and the strength is normal in arms and legs distally and proximally. Patient does have significant myoclonic jerks of outstretched hands. Deep tendon reflexes are symmetric and hypoactive and plantars are flat bilaterally. Sensory to touch is equal with no neglect on double simultaneous stimulation. Cerebellar function showed no ataxia for [id number] testing. No dysdiadochokinesia. No ataxia for [id number] testing on either side. Tone and bulk of muscles normal. Gait deferred.. On general examination, there is no carotid bruit or murmur, S1-S2 audible. Chest is clear on consultation. Abdomen is soft nontender. No organomegaly, beena wel sounds present. Peripheral pulses are present. No edema. Results - Laboratory Findings CBC and BMP: 04/03/22 13:41 04/03/22 13:41 Abnormal Lab Findings: Abnormal Labs 04/03/22 04/03/22 04/03/22 13:41 13:41 17:32 RBC 3.54 L Hgb 9.4 L Hct 31.3 L MCHC 30.1 L RDW 17.7 H Lymphocytes # 0.6 L Carbon Dioxide 31 H BUN 36 H Creatinine 2.61 H Glucose 130 H POC Glucose (mg/dL) 114 H 04/03/22 20:32 RBC Hgb Hct MCHC RDW Lymphocytes # Carbon Dioxide BUN Creatinine Glucose POC Glucose (mg/dL) 145 H Assessment and Plan Assessment: * Status post accidental fall due to hand slipping off the sink while holding it. * Abnormal brain scan. * Orthostatic hypotension * Status post cervical fusion 03/18/2022. * Myoclonic jerks, probably related to medication/renal/cardiac dysfunction * Chronic renal disease * Hyperlipidemia, controlled * Diabetes 2, very well controlled * History of B12 deficiency * Ischemic cardiomyopathy, status post AICD * History of pulmonary embolism * Prostate cancer, status post resection * X tobacco use Plan: * I reviewed CT head, lesion in the right subcortical region appears either artifactual versus small vessel disease. Patient has no clinical symptoms of stroke/TIA. Examination is completely normal with NIH stroke scale of 0. * No other neurological workup is indicated. * Patient has myoclonic jerks noticed, which may be related to medication side effects with pre-existing significant chronic renal disease. Suggest decreasing dose of Neurontin and tramadol. * Patient had a carotid Doppler 01/11/2020, which was completely normal with no significant stenosis with antegrade flow in vertebral arteries. No need to repeat. * 2-D echo from 01/05/2022 shows left ventricular wall thickness with low ej ection fraction 25-30%. Left atrium is severely increased in volume. Moderate MR. * Patient's lipids, diabetes and blood pressure are all well controlled. * Cardiology on board for orthostatic hypotension. * Continue healthy lifestyles. * Continue Eliquis 5 mg twice a day and Lipitor 40 mg daily. * Patient has history of B12 deficiency with B12 286 on 11/11/2021. We will start B12 replacement. * Neurologically clear. Thank you for the consult. Time with Patient: Greater than 30
[2022-04-04 12:02] LABS: Glucose,Whole Blood 152 mg/dL (70-110)
--- NOTE | 2022-04-04 12:10 | CA ---
Transthoracic Echo Report Name: Ben Vega Age: 81 Gender: M : 1940 Exam Date: 04/04/2022 09:50 Exam Location: [facility] Ht (in): 70 Wt (lb): 220 Ordering Physician: Jacobo Maddox MD ([id number]) Attending/Referring Phys: Tan HOOKER Housecleaner Noreen Castillo RDCS Procedure CPT: Indications: orthostatic hypotension Cardiac Hx: Technical Quality: Technically difficult study Contrast 1: Lumason Total Dose (mL): 5 Contrast 2: Total Dose (mL): MEASUREMENTS (Male / Female) Normal Values 2D ECHO LV Diastolic Diameter PLAX 5.7 cm 4.2 - 5.9 / 3.9 - 5.3 cm LV Systolic Diameter PLAX 3.9 cm IVS Diastolic Thickness 1.4 cm 0.6 - 1.0 / 0.6 - 0.9 cm LVPW Diastolic Thickness 1.4 cm 0.6 - 1.0 / 0.6 - 0.9 cm LV Relative Wall Thickness 0.5 RV Internal Dim ED PLAX 2.9 cm LA Volume 82.8 cm??? 18 - 58 / 22 - 52 cm??? M-MODE Aortic Root Diameter MM 2.9 cm LA Systolic Diameter MM 3.5 cm LA Ao Ratio MM 1.2 AV Cusp Separation MM 1.6 cm DOPPLER AV Peak Velocity 119.9 cm/s AV Peak Gradient 5.8 mmHg LVOT Peak Velocity 80.6 cm/s LVOT Peak Gradient 2.6 mmHg MV Area PHT 2.9 cm??? Mitral E Point Velocity 60.1 cm/s Mitral A Point Velocity 84.0 cm/s Mitral E to A Ratio 0.7 MV Deceleration Time 263.0 ms TR Peak Velocity 240.8 cm/s TR Peak Gradient 23.2 mmHg Right Ventricular Systolic Press 28.2 mmHg FINDINGS Left Ventricle Moderately increased left ventricular wall thickness. Mild left ventricular dilatation. Reduced global left ventricular systolic function. Left ventricular ejection fraction is estimated at 25-30 %. Right Ventricle Normal right ventricular size and function. Right ventricular systolic pressure within normal limits. Right Atrium Normal right atrial size. Catheter/pacemaker wire in the right atrial cavity. Left Atrium Severely increased left atrial volume. Mildly increased left atrial area. Mitral Valve Structurally normal mitral valve. Mild mitral annular calcification. Mitral valve thickened. [id number]-[id number] mitral regurgitation. Aortic Valve Trileaflet aortic valve. No aortic valve stenosis or regurgitation. Tricuspid Valve Structurally normal tricuspid valve. Mild tricuspid regurgitation. Pulmonic Valve Structurally normal pulmonic valve. Trace pulmonic regurgitation. Pericardium No pericardial effusion. Aorta Normal size aortic root and proximal ascending aorta. CONCLUSIONS Severe LV systolic dysfunction Mild to moderate mitral regurgitation Previewed by: Dr. Jacobo Maddox MD (Electronically Signed) Final Date: 04 April 2022 12:09
[2022-04-04] MEDS: CYANOCOBALAMIN 500 MCG TAB PO SCH (12:55)
[2022-04-04] MEDS: MIDODRINE 5 MG TAB PO SCH ×2 (12:57→18:17)
--- NOTE | 2022-04-04 15:23 | P.PN ---
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 Patient recently underwent C2 through T2 posteriolateral stabilized fusion with segmental instrumentation of C2 through T2 and bilateral laminectomy with partial medial facetectomy and foraminotomy C2 through T2 on 03/18/22 and discharged to care home facility for rehab. Patient presented to the emergency department today secondary to fall/syncopal episode. Patient reports he was at orthopedic surgeon's office for follow-up appointment and went to the restroom. Patient reports standing and urinating without any difficulties and washing his hands in the sink. Patient reports he then remembers his hands slipping and lying on the bathroom floor. Patient is uncertain of whether or not he lost consciousness, but does remember calling for assistance and does report dizziness/lightheadedness upon standing and awakening this morning with a "throbbing and pounding" migraine headache but thought that it was because he was given his medications wrong. He denies having any recent fevers, chills, diaphoresis, chest pain, palpitations, shortness of breath, nausea, vomiting, or experiencing any focal numbness/weakness/tingling. Patient underwent full evaluation in the emergency department. He was initially hypotensive with blood pressure of 95/65 and was also found to be positive for orthostatic hypotension with blood pressure supine 124/71 with heart rate of 65, sitting 103/56 with heart rate of 70, and standing 84/48 with heart rate of 67. Patient was taken for computed tomography scan. CT head reported concerning for possible right basal ganglia lacunar infarct. CT cervical spine showing postsurgical changes with the cervical spine with no acute abnormality reported. Chest x-ray reviewed reporting persistent cardiomegaly with no acute cardiopulmonary process. X-ray pelvis negative for acute osseous pathology. X-ray lumbar spine negative for acute fracture or dislocation consistent with previously noted moderate multilevel degenerative disc disease. X-ray thoracic spine reporting no acute osseous pathology with moderate multilevel degenerative disc disease. EKG completed and personally reviewed showing an atrial paced rhythm at 67 bpm with occasional PVC and T-wave inversion in lateral leads 1, 2, aVL, V5, and V6 unchanged when compared to previous EKG is completed on 01/05/22 and 11/13/21. Labs completed and reviewed. CBC consistent with normocytic anemia with hemoglobin of 9.4, at baseline. BMP showing hypercarbia with carbon dioxide of 31 and consistent with stage IV chronic kidney disease with BUN 36, creatinine 2.61, and GFR of 22 with baseline creatinine of 2.2. Patient's presenting complaints along with laboratory and imaging findings discussed with ED physician and patient was accepted for admission under our services to observation for orthostatic hypotension. Patient has his hard c-collar in place and states he has kept it on since surgery on 03/18/22 and reports he was instructed to wear and not remove it for 4 weeks. Physical exam: Patient was seen and fully evaluated at bedside this morning. He reports Headache has completely resolved and he denies having any dizziness/lightheadedness upon standing. Orthostatic vitals significantly improved since holding diuretics and placing patient on gentle IV fluid hydration. Cardiology starting patient on midodrine. PT/OT working with patient at this time. Vital signs reviewed and stable. General: Nontoxic, no distress and appears stated age. Derm: Skin warm and dry, normal coloration for ethnicity. Head: Atraumatic, normocephalic and symmetric. Heart c-collar in place. Eyes: EOMs intact, no lid lag, and anicteric sclera Mouth: no lip lesions, mucus membranes moist Cardiovascular: regular rate and rhythm with normal S1S2, systolic murmur, positive posterior tibial pulses bilaterally, and cap refill < 2 seconds. Pacemaker left anterior chest. Lungs: Respirations even, regular, and unlabored on room air. Lungs CTA bilaterally, no rhonchi, no rales, no wheezing, and no accessory muscle usage. Abdominal: soft, nontender to palpation, no guarding, no appreciable organo megaly Ext: ROM intact. No gross muscle atrophy, no edema, no contractures Neuro: Speech clear, face symmetrical and CN II-XII grossly intact with no noted focal neuro deficits. Psych: Alert and oriented to person, place, time, and situation. Appropriate and pleasant affect. Assessment and Plan of Care: Syncopal episode, likely secondary to orthostatic hypotension Orthostatic hypotension Ischemic cardiomyopathy with previously known EF of 25-30%. Status post AICD Moderate mitral regurgitation Coronary artery disease Paroxysmal atrial fibrillation -Orthostatic hypotension possibly secondary to medication adverse effect. -Patient appears dry, will hold diuretics Lasix and Aldactone and place patient on gentle IV fluid hydration at 75mL per hour. We will be cautious with fluid administration secondary to previously known impaired EF. -Telemetry monitoring -Consult cardiology. -Consult neurology -CT head concerning for possible right basal ganglia lacunar infarct. -Fall precautions -Neuro checks -Orthostatic vitals improving since discontinuation of Lasix and treating with gentle IV fluid hydration -Parameters placed on metoprolol to hold for systolic pressure less than 110 and/or heart rate less than 60. -At this time we will continue with cardiac medication regimen consisting of Eliquis, aspirin, atorvastatin, losartan, and metoprolol. Anemia of chronic disease secondary to stage IV chronic kidney disease -Hemoglobin 9.1, with baseline hemoglobin around 10.5. -Hemoglobin stable at this time. We will continue to monitor with repeat a.m. labs. Acute on Chronic Kidney Disease Stage IV -BUN 36, creatinine 2.61, and GFR of 22. Baseline creatinine 2.2. -Continue with sodium bicarb 650 mg 3 times daily -Patient receiving IVF for orthostatics as above -Holding lasix as above Status post C2 through T2 posteriolateral stabilized fusion with segmental instrumentation of C2 through T2 and bilateral laminectomy with partial medial facetectomy and foraminotomy C2 through T2 on 03/18/22 -Patient to keep hard cervical collar in place until further directed by orthopedic surgeon upon follow-up outpatient. -Fall precautions CODE STATUS: Full code DVT prophylaxis: Hamzah Discussed with: Pt and RN Anticipated discharge date: 1-[address]: Return to rehab A total of 35 minutes was spent on the care of this complex patient more than 50% of the time was spent in counseling and care coordination. Objective - Vital Signs Vital signs: Vital Signs Temp 97.4 F L 04/04/22 07:35 Pulse 55 L 04/04/22 07:45 Resp 16 04/04/22 07:35 BP 143/81 04/04/22 07:45 Pulse Ox 98 04/04/22 07:35 FiO2 Intake & Output 04/03/22 04/04/22 04/04/22 18:59 06:59 18:59 Intake Total 1000 Balance 1000 Weight 99.79 kg Intake: Intake, IV Titration 1000 Amount Sodium Chloride 0.9% 1, 1000 000 ml @ 75 mls/hr IV . [id number] [facility] Rx#:[id number] Other: Voiding Method External Catheter External Catheter # Voids 1 - Labs CBC & Chem 7: 04/05/22 05:03 04/05/22 05:03 Labs: Abnormal Lab Results - Last 24 Hours (Table) 04/03/22 04/03/22 04/03/22 Range/Units 13:41 13:41 17:32 RBC 3.54 L (4.30-5.90) m/uL Hgb 9.4 L (13.0-17.5) gm/dL Hct 31.3 L (39.0-53.0) % MCHC 30.1 L (31.0-37.0) g/dL RDW 17.7 H (11.5-15.5) % Lymphocytes # 0.6 L (1.0-4.8) k/uL Carbon Dioxide 31 H (22-30) mmol/L BUN 36 H (9-20) mg/dL Creatinine 2.61 H (0.66-1.25) mg/dL Glucose 130 H (74-99) mg/dL POC Glucose (mg/dL) 114 H (70-110) mg/dL 04/03/22 Range/Units 20:32 RBC (4.30-5.90) m/uL Hgb (13.0-17.5) gm/dL Hct (39.0-53.0) % MCHC (31.0-37.0) g/dL RDW (11.5-15.5) % Lymphocytes # (1.0-4.8) k/uL Carbon Dioxide (22-30) mmol/L BUN (9-20) mg/dL Creatinine (0.66-1.25) mg/dL Glucose (74-99) mg/dL POC Glucose (mg/dL) 145 H (70-110) mg/dL
[2022-04-04 17:26] LABS: Glucose,Whole Blood 127 mg/dL (70-110)
[2022-04-04] MEDS: SENNOSIDES 8.6 MG TAB PO SCH (20:54)
[2022-04-04] MEDS: LATANOPROST 0.005% OPHTH DROPS 2.5 ML BTL LEFT EYE SCH (20:54)
[2022-04-04] MEDS: ATORVASTATIN 40 MG TAB PO SCH (20:54)
[2022-04-05] MEDS: traMADol 50 MG TAB PO PRN ×2 (04:12→09:55)
[2022-04-05] MEDS: MIDODRINE 5 MG TAB PO SCH ×3 (06:39→18:42)
[2022-04-05] MEDS: SODIUM BICARBONATE TAB 650 MG TAB PO SCH ×3 (06:39→20:23)
[2022-04-05 09:01] LABS: HCT 27.7 % (39.6-50.0); MCH 26.5 pg (27.0-32.0); MCHC 28.9 g/dL (32.0-37.0); MCV 91.7 fL (80.0-97.0); Mean Platelet Volume 10.8 fL (9.5-12.2); NRBC Per 100 WBC 0 /100 WBCS (0.0-0.0); Platelet Count 293 X 10*3/uL (140-440); RBC 3.02 X 10*6/uL (4.40-5.60); RDW 17.7 % (11.5-14.5); WBC 7.82 X 10*3/uL (4.50-10.00)
[2022-04-05 09:23] LABS: African American GFR (CKD) 40.6 (60.0-200.0); Albumin 3.1 g/dL (3.8-4.9); Albumin/Globulin Ratio 1.24 (1.60-3.17); Anion Gap 9.1 mmol/L (10.00-18.00); BUN/Creat Ratio 16.28 Ratio (12.00-20.00); Blood Urea Nitrogen 29.3 mg/dL (9.0-27.0); Calcium 9.1 mg/dL (8.7-10.3); Carbon Dioxide 27.9 mmol/L (20.0-27.5); Globulin 2.5 g/dL (1.6-3.3); Magnesium 2.2 mg/dL (1.5-2.4); Potassium 4.6 mmol/L (3.5-5.5); Total Bilirubin 0.3 mg/dL (0.30-1.20); Total Protein 5.6 g/dL (6.2-8.2)
[2022-04-05] MEDS: allopurinoL 100 MG TAB PO SCH (09:55)
[2022-04-05] MEDS: SODIUM CHLORIDE 0.9% 1,000 ML IV SCH (09:55)
[2022-04-05] MEDS: APIXABAN 5 MG TAB PO SCH ×2 (09:56→20:23)
[2022-04-05] MEDS: LOSARTAN 25 MG TAB PO SCH (09:56)
[2022-04-05] MEDS: NON FORMULARY DRUG (Difluprednate [Difluprednate Ophth Soln] 5 ML Ml) RIGHT EYE SCH ×4 (09:57→20:23)
[2022-04-05] MEDS: METOPROLOL TARTRATE 50 MG TAB PO SCH ×2 (09:57→20:22)
[2022-04-05] MEDS: GABAPENTIN 300 MG CAP PO SCH ×2 (09:57→20:22)
[2022-04-05] MEDS: CYANOCOBALAMIN 500 MCG TAB PO SCH (12:44)
--- NOTE | 2022-04-05 17:15 | P.PN ---
Subjective Progress Note Date: 04/05/22 Hospital course: Patient is a very pleasant 81-year-old male with known past medical history of coronary artery disease, systolic cardiomyopathy with ejection fraction 25% with AICD placed, paroxysmal atrial fibrillation on anticoagulation with Eliquis, prostate cancer, congestive heart failure, hypertension, dyslipidemia, stage IV chronic kidney disease and multiple other comorbid conditions. Patient recently underwent C2 through T2 posteriolateral stabilized fusion with segmental instrumentation of C2 through T2 and bilateral laminectomy with partial medial facetectomy and foraminotomy C2 through T2 on 03/18/22 and [facility]. Patient presented to the emergency department today secondary to fall/syncopal episode. Patient reports he was at orthopedic surgeon's office for follow-up appointment and went to the restroom. Patient reports standing and urinating without any difficulties and washing his hands in the sink. Patient reports he then remembers his hands slipping and lying on the bathroom floor. Patient is uncertain of whether or not he lost consciousness, but does remember calling for assistance and does report dizziness/lightheadedness upon standing and awakening this morning with a "throbbing and pounding" migraine headache but thought that it was because he was given his medications wrong. He denies having any recent fevers, chills, diaphoresis, chest pain, palpitations, shortness of breath, nausea, vomiting, or experiencing any focal numbness/weakness/tingling. Patient underwent full evaluation in the emergency department. He was initially hypotensive with blood pressure of 95/65 and was also found to be positive for orthostatic hypotension with blood pressure supine 124/71 with heart rate of 65, sitting 103/56 with heart rate of 70, and standing 84/48 with heart rate of 67. Patient was taken for computed tomography scan. CT head reported concerning for possible right basal ganglia lacunar infarct. CT cervical spine showing postsurgical changes with the cervical spine with no acute abnormality reported. Chest x-ray reviewed reporting persistent cardiomegaly with no acute cardiopulmonary process. X-ray pelvis negative for acute osseous pathology. X-ray lumbar spine negative for acute fracture or dislocation consistent with previously noted moderate multilevel degenerative disc disease. X-ray thoracic spine reporting no acute osseous pathology with moderate multilevel degenerative disc disease. EKG completed and personally reviewed showing an atrial paced rhythm at 67 bpm with occasional PVC and T-wave inversion in lateral leads 1, 2, aVL, V5, and V6 unchanged when compared to previous EKG is completed on 01/05/22 and 11/13/21. Labs completed and reviewed. CBC consistent with normocytic anemia with hemoglobin of 9.4, at baseline. BMP showing hypercarbia with carbon dioxide of 31 and acute kidney injury on stage IV chronic kidney disease with BUN 36, creatinine 2.61, and GFR of 22 with baseline creatinine of 2.2. Patient was admitted under our services with consultation to cardiology and neurology. Neurology ruling out lacunar infarct stating likely artifact on CT. diuretics were held and patient was provided with gentle IV fluid hydration. He was evaluated by cardiology and underwent an echocardiogram which revealed severe left ventricular dysfunction with EF of 25-30% and mild to moderate mitral regurgitation. Cardiology started patient on midodrine. Physical exam: Patient was seen and fully evaluated at bedside this morning. He appears to be doing well. Continues to have positive orthostatic hypotension but standing blood pressure has significantly improved with morning BP of 110/65 on standing from a lying position of 160/71 and sitting position of 115/63. Patient has been receiving midodrine 2.5 mg 3 times daily and this was increased by cardiology to 5 mg daily this morning. Plan to monitor vital signs for an additional 24 hours, will discuss with cardiology whether or not to resume diuretics at discharge. Vital signs reviewed and stable. General: Nontoxic, no distress and appears stated age. Derm: Skin warm and dry, normal coloration for ethnicity. Head: Atraumatic, normocephalic and symmetric. Heart c-collar in place. Eyes: EOMs intact, no lid lag, and anicteric sclera Mouth: no lip lesions, mucus membranes moist Cardiovascular: regular rate and rhythm with normal S1S2, systolic murmur, positive posterior tibial pulses bilaterally, and cap refill < 2 seconds. Pacemaker left anterior chest. Lungs: Respirations even, regular, and unlabored on room air. Lungs CTA bilaterally, no rhonchi, no rales, no wheezing, and no accessory muscle usage. Abdominal: soft, nontender to palpation, no guarding, no appreciable organomegaly Ext: ROM intact. No gross muscle atrophy, no edema, no contractures Neuro: Speech clear, face symmetrical and CN II-XII grossly intact with no noted focal neuro deficits. Psych: Alert and oriented to person, place, time, and situation. Appropriate and pleasant affect. Assessment and Plan of Care: Syncopal episode, likely secondary to orthostatic hypotension Orthostatic hypotension Ischemic cardiomyopathy with previously known EF of 25-30%. Status post AICD Moderate mitral regurgitation Coronary artery disease Paroxysmal atrial fibrillation -Orthostatic hypotension possibly secondary to medication adverse effect. -Patient appears dry, will hold diuretics Lasix and Aldactone and place patient on gentle IV fluid hydration at 75mL per hour. We will be cautious with fluid administration secondary to previously known impaired EF. -Telemetry monitoring -Consult cardiology. -Consult neurology -CT head concerning for possible right basal ganglia lacunar infarct. -Fall precautions -Neuro checks -Orthostatic vitals improving since discontinuation of Lasix and treating with gentle IV fluid hydration -Parameters placed on metoprolol to hold for systolic pressure less than 110 and/or heart rate less than 60. -At this time we will continue with cardiac medication regimen consisting of Eliquis, aspirin, atorvastatin, losartan, and metoprolol. Anemia of chronic disease secondary to stage IV chronic kidney disease -Hemoglobin 8.0, with baseline hemoglobin 10. -Hemoglobin stable at this time. We will continue to monitor with repeat a.m. labs. Acute kidney injury on Chronic Kidney Disease Stage IV -Acute kidney injury resolved. BUN 29.3, creatinine 1.8, and GFR of 35. Baseline creatinine is 2.2. -Continue with sodium bicarb 650 mg 3 times daily -Patient received IVF hydration. -Continue to hold Lasix. Status post C2 through T2 posteriolateral stabilized fusion with segmental instrumentation of C2 through T2 and bilateral laminectomy with partial medial facetectomy and foraminotomy C2 through T2 on 03/18/22 -Patient to keep hard cervical collar in place until further directed by orthopedic surgeon upon follow-up outpatient. -Fall precautions CODE STATUS: Full code DVT prophylaxis: Ana Mariaquis Discussed with: Pt and RN Anticipated discharge date: Planning for discharge tomorrow morning Anticipated discharge place: Return to rehab A total of 33 minutes was spent on the care of this complex patient more than 50% of the time was spent in counseling and care coordination. I reviewed the documentation as provided by the OBIE above, who is the original author of this note. I agree with the documented assessment and plan, with the following changes: none Objective - Vital Signs Vital signs: Vital Signs Temp 98.2 F 04/05/22 02:17 Pulse 62 04/05/22 06:32 Resp 18 04/05/22 06:32 BP 151/77 04/05/22 06:32 Pulse Ox 100 04/05/22 06:32 FiO2 Intake & Output 04/04/22 04/05/22 04/05/22 18:59 06:59 18:59 Intake Total 360 1480 Output Total 400 Balance -40 1480 Intake: Intake, IV Titration 1000 Amount Sodium Chloride 0.9% 1, 1000 000 ml @ 75 mls/hr IV . [id number] [facility] Rx#:[id number] Oral 360 480 Output: Urine 400 Other: Voiding Method Urinal Diaper - Labs CBC & Chem 7: 04/05/22 05:03 04/05/22 05:03 Labs: Abnormal Lab Results - Last 24 Hours (Table) 04/04/22 04/04/22 Range/Units 12:01 17:25 POC Glucose (mg/dL) 152 H 127 H (70-110) mg/dL
[2022-04-05] MEDS: SENNOSIDES 8.6 MG TAB PO SCH (20:23)
[2022-04-05] MEDS: ATORVASTATIN 40 MG TAB PO SCH (20:23)
[2022-04-05] MEDS: LATANOPROST 0.005% OPHTH DROPS 2.5 ML BTL LEFT EYE SCH (20:23)
--- NOTE | 2022-04-05 21:42 | PN ---
PROGRESS NOTE SUBJECTIVE: Ben is a 81-year-old gentleman, who was admitted to hospital with orthostatic hypotension. This morning, he continues to have orthostatic hypotension, which is somewhat improved from yesterday. Definitely, his symptoms have improved. He is currently on Eliquis, Lipitor, Cozaar, Lopressor, and midodrine that I started yesterday at 2.5 mg t.i.d. We will increase the dose to 5 mg t.i.d. OBJECTIVE: GENERAL: Comfortable at rest. VITAL SIGNS: Heart rate is 75 beats per minute. Blood pressure is 150/77 that drops to 110/65. CHEST: Reveals good air entry bilaterally. HEART: Reveals first and second heart sounds. No gallop. EXTREMITIES: Did not reveal any edema. LABORATORY DATA: His hemoglobin is low at 8 as he has been anemic. ASSESSMENT: Orthostatic hypotension. PLAN: I advised the nurse to get bilateral compression stockings and I will increase the dose of midodrine, and hopefully with this, his symptoms would improve and he can be discharged home. MMREYL / IJN: [id number] /
--- NOTE | 2022-04-06 02:22 | P.PN ---
Subjective Progress Note Date: 04/05/22 Patient was seen for a follow-up. Patient laying comfortably in the bed. Offers no complaints. Objective - Vital Signs Vital signs: Vital Signs Temp 97.7 F 04/05/22 09:07 Pulse 65 04/05/22 09:07 Resp 16 04/05/22 09:07 BP 160/71 04/05/22 09:07 Pulse Ox 97 04/05/22 09:07 FiO2 Intake & Output 04/04/22 04/05/22 04/05/22 18:59 06:59 18:59 Intake Total 360 1480 Output Total 400 250 Balance -40 1480 -250 Intake: Intake, IV Titration 1000 Amount Sodium Chloride 0.9% 1, 1000 000 ml @ 75 mls/hr IV . [id number] [facility] Rx#:[id number] Oral 360 480 Output: Urine 400 250 Other: Voiding Method Urinal Urinal Diaper - Exam Unchanged. - Labs CBC & Chem 7: 04/05/22 05:03 04/05/22 05:03 Labs: Abnormal Lab Results - Last 24 Hours (Table) 04/04/22 04/05/22 04/05/22 Range/Units 17:25 05:03 05:03 RBC 3.02 L (4.40-5.60) X 10*6/uL Hgb 8.0 L (13.0-17.0) g/dL Hct 27.7 L (39.6-50.0) % MCH 26.5 L (27.0-32.0) pg MCHC 28.9 L (32.0-37.0) g/dL RDW 17.7 H (11.5-14.5) % Carbon Dioxide 27.9 H (20.0-27.5) mmol/L Anion Gap 9.10 L (10.00-18.00) mmol/L BUN 29.3 H (9.0-27.0) mg/dL Creatinine 1.8 H (0.6-1.5) mg/dL Est GFR (CKD-EPI)AfAm 40.6 L (60.0-200.0) Est GFR (CKD-EPI)NonAf 35.0 L (60.0-200.0) POC Glucose (mg/dL) 127 H (70-110) mg/dL Total Protein 5.6 L (6.2-8.2) g/dL Albumin 3.1 L (3.8-4.9) g/dL Albumin/Globulin Ratio 1.24 L (1.60-3.17) g/dL Assessment and Plan Assessment: * Status post accidental fall due to hand slipping off the sink while holding it. * Abnormal brain scan. * Orthostatic hypotension * Status post cervical fusion 03/18/2022. * Myoclonic jerks, probably related to medication/renal/cardiac dysfunction * Chronic renal disease * Hyperlipidemia, controlled * Diabetes 2, very well controlled * History of B12 deficiency * Ischemic cardiomyopathy, status post AICD * History of pulmonary embolism * Prostate cancer, status post resection * X tobacco use Plan: * I reviewed CT head, lesion in the right subcortical region appears either artifactual versus small vessel disease. Patient has no clinical symptoms of stroke/TIA. Examination is completely normal with NIH stroke scale of 0. * No other neurological workup is indicated. * Patient has myoclonic jerks noticed, which may be related to medication side effects with pre-existing significant chronic renal disease. Suggest decreasing dose of Neurontin and tramadol. * Patient had a carotid Doppler 01/11/2020, which was completely normal with no significant stenosis with antegrade flow in vertebral arteries. No need to repeat. * 2-D echo from 01/05/2022 shows left ventricular wall thickness with low ejection fraction 25-30%. Left atrium is severely increased in volume. Moderate MR. * Patient's lipids, diabetes and blood pressure are all well controlled. * Cardiology on board for orthostatic hypotension. Patient on midodrine 5 mg 3 times a day. * Continue healthy lifestyles. * Continue Eliquis 5 mg twice a day and Lipitor 40 mg daily. * Patient has history of B12 deficiency with B12 286 on 11/11/2021. We will start B12 replacement. * Neurologically clear. Please reconsult neurology if any other concerns. Dr. Perdue covering neurology service over the weekend for any concerns.
[2022-04-06 04:04] VITALS: RESP 17
[2022-04-06] MEDS: MIDODRINE 5 MG TAB PO SCH (06:24)
[2022-04-06] MEDS: SODIUM BICARBONATE TAB 650 MG TAB PO SCH (06:24)
[2022-04-06 08:10] VITALS: BP 148/77; PULSE 65; TEMP 97.6
[2022-04-06] MEDS: traMADol 50 MG TAB PO PRN (08:20)
[2022-04-06] MEDS: LOSARTAN 25 MG TAB PO SCH (09:24)
[2022-04-06] MEDS: CYANOCOBALAMIN 500 MCG TAB PO SCH (09:24)
[2022-04-06] MEDS: allopurinoL 100 MG TAB PO SCH (09:24)
[2022-04-06] MEDS: METOPROLOL TARTRATE 50 MG TAB PO SCH (09:24)
[2022-04-06] MEDS: APIXABAN 5 MG TAB PO SCH (09:24)
[2022-04-06] MEDS: GABAPENTIN 300 MG CAP PO SCH (09:24)
[2022-04-06] MEDS: NON FORMULARY DRUG (Difluprednate [Difluprednate Ophth Soln] 5 ML Ml) RIGHT EYE SCH (09:25)
--- NOTE | 2022-04-06 10:29 | P.DS ---
Providers Date of admission: 04/05/22 08:39 Expected date of discharge: 04/06/22 Attending physician: Shashank Godinez MD Consults: 04/03/22 16:02 Consult Physician Urgent Consulting Provider: Joseph Sarkar Consult Reason/Comments: CT concerning for possible rate basal ganglia lacunar infarct Do you want consulting provider notified?: Yes 04/03/22 16:51 Consult Physician Routine Consulting Provider: Jacobo Maddox Consult Reason/Comments: orthostatic hypotension, syncope with sig card hx in EF 25% Do you want consulting provider notified?: Yes Primary care physician: Bruce Arnold MD Hospital Course: Discharge Diagnosis: Syncopal episode, likely secondary to orthostatic hypotension. Orthostatic hypotension significantly improved after IV fluid hydration, discontinuation of diuretics and initiation of midodrine. In addition patient instructed to wear KAITLIN hose at all times when out of bed. Orthostatic hypotension.Orthostatic hypotension significantly improved after IV fluid hydration, discontinuation of diuretics and initiation of midodrine. In addition patient instructed to wear KAITLIN hose at all times when out of bed. Ischemic cardiomyopathy with previously known EF of 25-30%. Status post AICD. Patient to continue with cardiac medication regimen consisting of Eliquis, aspirin, atorvastatin, losartan, and metoprolol. Moderate mitral regurgitation. Continue to follow up outpatient with cardiology for long-term monitoring/management if needed. Coronary artery disease. Patient to continue with cardiac medication regimen consisting of Eliquis, aspirin, atorvastatin, losartan, and metoprolol. Paroxysmal atrial fibrillation. Continue anticoagulation with Eliquis. Anemia of chronic disease secondary to stage IV chronic kidney disease. Hemoglobin stable Acute kidney injury on Chronic Kidney Disease Stage IV. Acute kidney injury resolved after IV fluid hydration and holding of diuretics. BUN 29.3, creatinine 1.8, and GFR of 35. Baseline creatinine is 2.2. Continue with sodium bicarb 650 mg 3 times daily Status post C2 through T2 posteriolateral stabilized fusion with segmental instrumentation of C2 through T2 and bilateral laminectomy with partial medial facetectomy and foraminotomy C2 through T2 on 03/18/22. Patient to keep hard cervical collar in place until further directed by orthopedic surgeon upon follow-up visit outpatient as previously scheduled. Fall precautions to be continued and patient to walk with walker and assistance at all times. Hospital Course: Patient is a very pleasant 81-year-old male with known past medical history of coronary artery disease, systolic cardiomyopathy with ejection fraction 25% with AICD placed, paroxysmal atrial fibrillation on anticoagulation with Eliquis, prostate cancer, congestive heart failure, hypertension, dyslipidemia, stage IV chronic kidney disease and multiple other comorbid conditions. Patient recently underwent C2 through T2 posteriolateral stabilized fusion with segmental instrumentation of C2 through T2 and bilateral laminectomy with partial medial facetectomy and foraminotomy C2 through T2 on 03/18/22 and discharged to [facility] facility for rehab. Patient presented to the emergency department today secondary to fall/syncopal episode. Patient reports he was at orthopedic surgeon's office for follow-up appointment and went to the restroom. Patient reports standing and urinating without any difficulties and washing his hands in the sink. Patient reports he then remembers his hands slipping and lying on the bathroom floor. Patient is uncertain of whether or not he lost consciousness, but does remember calling for assistance and does report dizziness/lightheadedness upon standing and awakening this morning with a "throbbing and pounding" migraine headache but thought that it was because he was given his medications wrong. He denies having any recent fevers, chills, diaphoresis, chest pain, palpitations, shortness of breath, nausea, vomiting, or experiencing any focal numbness/weakness/tingling. Patient underwent full evaluation in the emergency department. He was initially hypotensive with blood pressure of 95/65 and was also found to be positive for orthostatic hypotension with blood pressure supine 124/71 with heart rate of 65, sitting 103/56 with heart rate of 70, and standing 84/48 with heart rate of 67. Patient was taken for computed tomography scan. CT head reported concerning for possible right basal ganglia lacunar infarct. CT cervical spine showing postsurgical changes with the cervical spine with no acute abnormality reported. Chest x-ray reviewed reporting persistent cardiomegaly with no acute cardiopulmonary process. X-ray pelvis negative for acute osseous pathology. X-ray lumbar spine negative for acute fracture or dislocation consistent with previously noted moderate multilevel degenerative disc disease. X-ray thoracic spine reporting no acute osseous pathology with moderate multilevel degenerative disc disease. EKG completed and personally reviewed showing an atrial paced rhythm at 67 bpm with occasional PVC and T-wave inversion in lateral leads 1, 2, aVL, V5, and V6 unchanged when compared to previous EKG is completed on 01/05/22 and 11/13/21. Labs completed and reviewed. CBC consistent with normocytic anemia with hemoglobin of 9.4, at baseline. BMP showing hypercarbia with carbon dioxide of 31 and acute kidney injury on stage IV chronic kidney disease with BUN 36, creatinine 2.61, and GFR of 22 with baseline creatinine of 2.2. Patient was admitted under our services with consultation to cardiology and neurology. Neurology ruling out lacunar infarct stating likely artifact on CT. diuretics were held and patient was provided with gentle IV fluid hydration. He was evaluated by cardiology and underwent an echocardiogram which revealed severe left ventricular dysfunction with EF of 25-30% and mild to moderate mitral regurgitation. Cardiology started patient on midodrine. Orthostatic hypotension significantly improved after IV fluid hydration, discontinuation of diuretics a nd initiation of midodrine. In addition patient instructed to wear KAITLIN hose at all times when out of bed. Patient is medically stable for discharge at this time. Patient to resume Lasix and Aldactone and have repeat BMP in 3 days to monitor renal function. Patient to follow-up with PCP in 2-3 days and cardiology in 1 week. Physical exam: Patient seen and fully evaluated at bedside, no new complaints today. Patient medically stable for discharge back to rehab. Vital signs reviewed and stable. General: Nontoxic, no distress and appears stated age. Derm: Skin warm and dry, normal coloration for ethnicity. Head: Atraumatic, normocephalic and symmetric. Heart c-collar in place. Eyes: EOMs intact, no lid lag, and anicteric sclera Mouth: no lip lesions, mucus membranes moist Cardiovascular: regular rate and rhythm with normal S1S2, systolic murmur, positive posterior tibial pulses bilaterally, and cap refill < 2 seconds. Pacemaker left anterior chest. Lungs: Respirations even, regular, and unlabored on room air. Lungs CTA bilaterally, no rhonchi, no rales, no wheezing, and no accessory muscle usage. Abdominal: soft, nontender to palpation, no guarding, no appreciable organomegaly Ext: ROM intact. No gross muscle atrophy, no edema, no contractures Neuro: Speech clear, face symmetrical and CN II-XII grossly intact with no noted focal neuro deficits. Psych: Alert and oriented to person, place, time, and situation. Appropriate and pleasant affect. A total of 35 minutes of time were spent preparing this complex discharge sarah gilman. Pt was discharged on 04/06/22 at 9:56 AM. I reviewed the documentation as provided by the OBIE above, who is the original author of this note. I agree with the documented assessment and plan, with the following changes: none Patient Condition at Discharge: Stable Plan - Discharge Summary Discharge Rx Participant: No New Discharge Prescriptions: New Midodrine [ProAmatine] 5 mg PO AC-TID 30 Days #90 tab Continue Atorvastatin [Lipitor] 40 mg PO HS Furosemide [Lasix] 40 mg PO DAILY Apixaban [Eliquis] 5 mg PO BID calcitrioL [Calcitriol] 0.25 mcg PO SA Alpha Lipoic Acid 600 mg PO DAILY Cholecalciferol [Vitamin D3 (25 Mcg = 1000 Iu)] 50 mcg PO DAILY Metoprolol Tartrate [Lopressor] 50 mg PO BID Difluprednate [Difluprednate Ophth Soln] 1 drop RIGHT EYE QID traMADol HCl [Ultram] 50 mg PO Q6H PRN #21 tab PRN Reason: Pain Gabapentin 300 mg PO BID 3 Days #6 cap Sennosides [Senokot] 8.6 mg PO HS Magnesium Hydroxide [Milk of Magnesia] 2,400 mg PO DAILY PRN PRN Reason: Constipation allopurinoL [Zyloprim] 200 mg PO DAILY Latanoprost [Latanoprost 0.005%] 1 drop LEFT EYE HS calcium polycarbophiL [Fibercon] 625 mg PO BID Spironolactone [Aldactone] 12.5 mg PO DAILY Losartan [Cozaar] 25 mg PO DAILY tab Sodium Bicarbonate Tab 650 mg PO TID@0700,1300,1900 Discontinued Cyclobenzaprine [Flexeril] 5 mg PO Q8H PRN PRN Reason: Spasms Discharge Medication List Atorvastatin [Lipitor] 40 mg PO HS 01/07/17 [History] Apixaban [Eliquis] 5 mg PO BID 03/20/20 [History] Furosemide [Lasix] 40 mg PO DAILY 03/20/20 [History] calcitrioL [Calcitriol] 0.25 mcg PO SA 04/26/21 [History] allopurinoL [Zyloprim] 200 mg PO DAILY 07/16/21 [History] Alpha Lipoic Acid 600 mg PO DAILY 01/05/22 [History] Cholecalciferol [Vitamin D3 (25 Mcg = 1000 Iu)] 50 mcg PO DAILY 01/05/22 [History] Latanoprost [Latanoprost 0.005%] 1 drop LEFT EYE HS 01/05/22 [History] calcium polycarbophiL [Fibercon] 625 mg PO BID 01/05/22 [History] Metoprolol Tartrate [Lopressor] 50 mg PO BID 01/17/22 [History] Difluprednate [Difluprednate Ophth Soln] 1 drop RIGHT EYE QID 03/14/22 [History] Spironolactone [Aldactone] 12.5 mg PO DAILY 03/14/22 [History] Gabapentin 300 mg PO BID 3 Days #6 cap 03/21/22 [Rx] traMADol HCl [Ultram] 50 mg PO Q6H PRN #21 tab 03/21/22 [Rx] Losartan [Cozaar] 25 mg PO DAILY tab 03/22/22 [Rx] Magnesium Hydroxide [Milk of Magnesia] 2,400 mg PO DAILY PRN 03/31/22 [History] Sennosides [Senokot] 8.6 mg PO HS 03/31/22 [History] Sodium Bicarbonate Tab 650 mg PO TID@0700,1300,1900 03/31/22 [History] Midodrine [ProAmatine] 5 mg PO AC-TID 30 Days #90 tab 04/06/22 [Rx] Follow up Appointment(s)/Referral(s): Bert Zuñiga MD [STAFF PHYSICIAN] - 1 Week Bruce Arnold MD [Primary Care Provider] - 1-2 days Ambulatory/Diagnostic Orders: Basic Metabolic Panel [LAB.AMB] Time Frame: 3 Days, Location: None Selected Activity/Diet/Wound Care/Special Instructions: Activity: You are a high fall risk and should only ambulate with assistance and use of walker at all times. Remember as we discussed, it is very important to rise slowly from a lying or s eated position to prevent dizziness resulting in an unwanted fall. Wear KAITLIN hose (compression stockings) at all times when out of bed Diet: Heart healthy and carb consistent diet. Avoid salts, or foods with hidden salts such as canned or boxed foods and frozen dinners. Extra salt makes your heart work harder and traps the fluid in your body for longer. Special Instructions: Take all of your medications as directed and remember to keep all of your doctor's appointments and follow-up as needed. Diuretics were resumed now that orthostatic hypotension has improved. You will need to have repeat labs done in 3 days to monitor renal function and results to be sent to your [facility] for follow up and further management of your diuretics. Thank you for allowing us to participate in your care, it was truly a pleasure having you for our patient!!! Discharge Disposition: TRANSFER TO SNF/ECF
--- NOTE | 2022-04-06 12:34 | P.PN ---
Subjective Progress Note Date: 04/06/22 This is a pleasant 81-year-old gentleman who follows with Dr. Christensen in the office. Has a history of ischemic cardiomyopathy, status post AICD, CAD status post PCI of the LAD and RCA. Presented with recurrent episodes of syncope. Was found to have orthostatic hypotension. Medications up and adjusted knees been started on Midodrine. His symptoms have improved. In standing this morning he denies any dizziness. Blood pressure did drop from 148 systolic to 124 systolic but was asymptomatic. Patient's accident ordered but have not been applied yet. Labs yesterday showed an improvement in his renal function. Echocardiogram with Doppler showed severely impaired LV systolic function with an ejection fraction of 25-30% mild to moderate MR. He is anticipating being discharged back to longterm facility for rehab today. Objective - Vital Signs Vital signs: Vital Signs Temp 97.6 F 04/06/22 08:08 Pulse 65 04/06/22 08:10 Resp 17 04/06/22 08:08 BP 148/77 04/06/22 08:10 Pulse Ox 97 04/06/22 08:22 FiO2 Intake & Output 04/05/22 04/06/22 04/06/22 18:59 06:59 18:59 Intake Total 472 Output Total 250 Balance 222 Intake: Oral 472 Output: Urine 250 Other: Voiding Method Urinal Urinal # Voids 3 2 - Exam PHYSICAL EXAMINATION: HEENT: Head is atraumatic, normocephalic. Pupils equal, round. Neck is supple. There is no elevated jugular venous pressure. HEART EXAMINATION: Heart sounds regular, S1 and S2 normal this holosystolic murmur at the apex. CHEST EXAMINATION: Lungs are clear to auscultation and precussion. No chest wall tenderness is noted on palpation or with deep breathing. ABDOMEN: Soft, nontender. Bowel sounds are heard. No organomegaly noted. EXTREMITIES: 2+ peripheral pulses with no evidence of peripheral edema and no calf tenderness noted. NEUROLOGIC patient is awake, alert and oriented x3. . - Labs CBC & Chem 7: 04/05/22 05:03 04/05/22 05:03 Assessment and Plan Assessment: 1 orthostatic hypotension #2 ischemic cardiomyopathy status post AICD #3 CAD status post PCI of LAD and RCA #4 paroxysmal atrial fibrillation Plan: From cardiology's perspective continue midodrine. From our standpoint patient is stable to be discharged back to longterm facility. He will follow-up in the office with Dr. Zuñiga. [facility] note has been reviewed, I agree with a documented findings and plan of care. Patient was seen and examined.
--- NOTE | 2022-04-09 13:40 | CDI ---
Documentation Clarification Form Date: 04/09/22 From: Latanya Aguirre Admit Date: 04/05/2022 8:39:00 AM Patient Name: Ben Vega Visit Number: [id number] Discharge Date: 04/06/2022 12:11:00 PM ATTENTION: The Clinical Documentation Specialists (CDI) and [facility] Coding Staff appreciate your assistance in clarifying documentation. Please respond to the clarification below the line at the bottom and electronically sign. The CDI & [facility] Coding staff will review the response and follow-up if needed. Please note: Queries are made part of the Legal Health Record. If you have any questions, please contact the author of this message via ITS. Dr. Shashank Godinez, Your patient has the documented diagnosis of unspecified CHF per ED Note, H&P, PNs and DS. Additional information regarding the [type, acuity] of CHF is requested. History/Risk Factors: CAD, ischemic cardiomyopathy w EF 25%, PAF, s/p CABG, AICD, HTN, Stage IV CKD Clinical Indicators: Heart regular rate andrhythm. VS/Pulse OX: T 97.7, P 66, R 20, BP 95/65, O2 2L NC 10O BNP: none available Echocardiogram Results: Moderately increased left ventricular wall thickness. Mild left ventricular dilatation.Reducedglobal left ventricular systolic function. Left ventricular ejection fraction is estimated at 25-30 %. Chest X Ray: Persistent cardiomegaly with no acute cardiopulmonary process. Treatment: Home meds Lasix 40 mg tabl PO daily discharged on same meds. In your professional opinion, can you please clarify the [acuity and type] of CHF if known? [ ] Acute Systolic Heart Failure (reduced EF) [ ] Chronic Systolic Heart Failure (reduced EF) [x] Acute on Chronic Systolic Heart Failure (reduced EF) [ ] Other, please specify [ ] Unable to determine MTDD
== END 2022-04-06 12:11 | DRG 312 ==
LOC: EC 12:38 → 6NMEDSUR 15:39 → OBSVTOIN 04-05 08:39
PROVIDERS: ADMIT Internal Medicine; ATTEND Internal Medicine
DX: I95.1 Orthostatic hypotension (principal); I50.23 Acute on chronic systolic (congestive) heart failure; N17.9 Acute kidney failure, unspecified; N18.4 Chronic kidney disease, stage 4 (severe); I13.0 Hypertensive heart and chronic kidney disease with heart failure and stage 1 through stage 4 chronic kidney disease, or unspecified chronic kidney disease; E11.41 Type 2 diabetes mellitus with diabetic mononeuropathy; D63.1 Anemia in chronic kidney disease; G25.3 Myoclonus; I48.0 Paroxysmal atrial fibrillation; E11.22 Type 2 diabetes mellitus with diabetic chronic kidney disease; E53.8 Deficiency of other specified B group vitamins; I95.9 Hypotension, unspecified; G43.909 Migraine, unspecified, not intractable, without status migrainosus; I25.5 Ischemic cardiomyopathy; E78.5 Hyperlipidemia, unspecified; I34.0 Nonrheumatic mitral (valve) insufficiency; I25.2 Old myocardial infarction; R29.6 Repeated falls; I25.10 Atherosclerotic heart disease of native coronary artery without angina pectoris; I49.3 Ventricular premature depolarization; H40.9 Unspecified glaucoma; K57.90 Diverticulosis of intestine, part unspecified, without perforation or abscess without bleeding; M10.9 Gout, unspecified; M54.9 Dorsalgia, unspecified; Z79.01 Long term (current) use of anticoagulants; Z79.899 Other long term (current) drug therapy; Z87.891 Personal history of nicotine dependence; Z85.46 Personal history of malignant neoplasm of prostate; Z86.711 Personal history of pulmonary embolism; Z95.5 Presence of coronary angioplasty implant and graft; Z95.810 Presence of automatic (implantable) cardiac defibrillator; Z98.1 Arthrodesis status; Z88.0 Allergy status to penicillin; Z88.5 Allergy status to narcotic agent; W18.30XA Fall on same level, unspecified, initial encounter; Y92.531 Health care provider office as the place of occurrence of the external cause
CPT/HCPCS: 36415; 70450; 71045; 72070; 72100; 72125; 72170; 80048; 80053; 83735; 85025; 85027; 93005; 93306; 94760; 99285